=== PATIENT | male | born 1965 | race Caucasian/White ===

== ENCOUNTER 2016-07-18 10:20 | Emergency (ER) | payer BC ==
[2016-07-18] MEDS ORDERED: SODIUM CHLORIDE 0.9% 1,000 ML IV STA ×3 (10:57→12:44)
[2016-07-18] MEDS ORDERED: SODIUM CHLORIDE 0.9% 500 ML IV STA (10:57)
[2016-07-18] MEDS ORDERED: IPRATROPIUM-ALBUTEROL 3 ML NEB INHALATION STA (10:57)
[2016-07-18] MEDS ORDERED: methylPREDNISolone SOD SUCCI 125 MG/2 ML VIAL IV STA (10:57)
[2016-07-18 11:47] LABS: Basophils # (A) 0.1 k/uL (0-0.2); Basophils % (A) 1 %; CH 32.1; CHCM 33.1; Eosinophils # (A) 0.2 k/uL (0-0.7); Eosinophils % (A) 3 %; HCT 47.3 % (39.0-53.0); HDW 2.46; HGB 15.5 gm/dL (13.0-17.5); Luc # (Auto) 0.09; Luc % (Auto) 2; Lymphocytes # (A) 0.9 k/uL (1.0-4.8); Lymphocytes % (A) 16 %; MCH 31.9 pg (25.0-35.0); MCHC 32.7 g/dL (31.0-37.0); MCV 97.6 fL (80.0-100.0); Mean Platelet Volume 7.4; Monocytes # (A) 0.3 k/uL (0-1.0); Monocytes % (A) 5 %; Neutrophils # (A) 4.3 k/uL (1.3-7.7); Neutrophils % (A) 74 %; RBC 4.85 m/uL (4.30-5.90); RDW 14.3 % (11.5-15.5); WBC 5.8 k/uL (3.8-10.6); WBC (Perox) 5.42
[2016-07-18 11:55] LABS: ALT 927 U/L (21-72); Alkaline Phosphatase 624 U/L (38-126); Anion Gap 12 mmol/L; Blood Urea Nitrogen 27 mg/dL (9-20); Calcium 9.8 mg/dL (8.4-10.2); Carbon Dioxide 29 mmol/L (22-30); Chloride 98 mmol/L (98-107); Glucose 286 mg/dL (74-99); Magnesium 1.9 mg/dL (1.6-2.3); Non-African American GFR(MDRD) >60 (>60 ml/min/1.73 sqM); Potassium 4.5 mmol/L (3.5-5.1); Sodium 139 mmol/L (137-145); Total Bilirubin 0.9 mg/dL (0.2-1.3); Total Protein 8.1 g/dL (6.3-8.2)
[2016-07-18] MEDS ORDERED: KETOROLAC 30 MG/ML 1 ML VIAL IVP STA (12:00)
[2016-07-18] MEDS ORDERED: ACETAMINOPHEN IV (For NPO) 1,000 MG in EMPTY BAG 1 BAG IVPB STA (12:00)
--- NOTE | 2016-07-18 12:00 | ED ---
General Adult HPI - General Chief complaint: Shortness of Breath Stated complaint: Sob Time Seen by Provider: 07/18/16 10:29 Source: patient, RN notes reviewed, old records reviewed Mode of arrival: ambulatory Limitations: no limitations - History of Present Illness Initial comments: This is a 50-year-old male the ER for evaluation of cough congestion shortness of breath and some fatigue. Patient's multiple medical comorbidities including diabetes her blood pressure cholesterol. Patient denies chest pain. Patient states been treated for outpatient pneumonia with no significant improvement in his activity level or breathing ability. Patient has continued to smoke. At this time denies fevers, short of breath cough congestion with sore throat. No known sick contacts no recent travel history no recent hospitalizations - Related Data Home Medications Medication Instructions Recorded Confirmed Omeprazole [PriLOSEC] 20 mg PO BID 01/17/14 07/18/16 Insulin Aspart [NovoLOG] See Protocol SQ CONTINUOUS 02/09/14 07/18/16 ALPRAZolam [Xanax] 0.5 mg PO DAILY PRN 04/23/15 07/18/16 Methocarbamol [Robaxin] 500 mg PO TID PRN 04/23/15 07/18/16 Aspirin 81 mg PO DAILY 04/10/16 07/18/16 Amoxic-Pot Clav 875-125Mg 1 tab PO Q12HR 07/18/16 07/18/16 [Augmentin 875-125] Atorvastatin [Lipitor] 40 mg PO DAILY 07/18/16 07/18/16 Hydrocodone/Acetaminophen [[place] 1 tab PO TID PRN 07/18/16 07/18/16 10-325] Lidocaine Viscous [Xylocaine 15 ml MUCOUS MEM Q3H PRN 07/18/16 07/18/16 Viscous 2%] PARoxetine HCL [Paxil] 30 mg PO DAILY 07/18/16 07/18/16 Pregabalin [Lyrica] 75 mg PO BID 07/18/16 07/18/16 Previous Rx's Medication Instructions Recorded hydrALAZINE HCL [Apresoline] 50 mg PO TID #90 tab 04/24/15 Allergies Allergy/AdvReac Type Severity Reaction Status Date / Time No Known Allergies Allergy Verified 07/18/16 10:36 Review of Systems ROS Statement: Those systems with pertinent positive or pertinent negative responses have been documented in the HPI. ROS Other: All systems not noted in ROS Statement are negative. Past Medical History Past Medical History: Diabetes Mellitus, GERD/Reflux, Hypertension Additional Past Medical History / Comment(s): NEUROPATHY LOWER EXTREMITIES, HX OF FEET FX'S. "CRACKED L-5". History of Any Multi-Drug Resistant Organisms: None Reported Past Surgical History: No Surgical Hx Reported Additional Past Surgical History / Comment(s): COLONOSCOPY, carotids surgery. Past Anesthesia/Blood Transfusion Reactions: No Reported Reaction Additional Past Anesthesia/Blood Transfusion Reaction / Comment(s): STATES BLOODPRESSURE "JAMES HIGH" AFTER COLONOSCOPY. Past Psychological History: No Psychological Hx Reported Smoking Status: Current every day smoker Past Alcohol Use History: Occasional Past Drug Use History: None Reported General Exam Limitations: no limitations General appearance: alert, in no apparent distress Head exam: Present: atraumatic, normocephalic, normal inspection Eye exam: Present: normal appearance, PERRL, EOMI. Absent: scleral icterus, conjunctival injection, periorbital swelling ENT exam: Present: normal exam, mucous membranes moist Neck exam: Present: normal inspection. Absent: tenderness, meningismus, lymphadenopathy Respiratory exam: Present: normal lung sounds bilaterally. Absent: respiratory distress, wheezes, rales, rhonchi, stridor Cardiovascular Exam: Present: regular rate, normal rhythm, normal heart sounds. Absent: systolic murmur, diastolic murmur, rubs, gallop, clicks GI/Abdominal exam: Present: soft, normal bowel sounds. Absent: distended, tenderness, guarding, rebound, rigid Extremities exam: Present: normal inspection, full ROM, normal capillary refill. Absent: tenderness, pedal edema, joint swelling, calf tenderness Back exam: Present: normal inspection Neurological exam: Present: alert, oriented X3, CN II-XII intact Psychiatric exam: Present: normal affect, normal mood Skin exam: Present: warm, dry, intact, normal color. Absent: rash Course Vital Signs 07/18/16 07/18/16 07/18/16 10:22 11:12 11:30 Temperature 97.0 F L Pulse Rate 102 H 102 H 102 H Respiratory 20 Rate Blood Pressure 134/73 O2 Sat by Pulse 97 Oximetry - Reevaluation(s) Reevaluation #1: 07/18/16 15:04 Patient does feel improved with symptomatic therapy breathing treatments EKG Findings - EKG Comments: EKG Findings:: EKG shows normal sinus rhythm rate 98, DE 150, QRS 94, QTc 469 Medical Decision Making - Medical Decision Making 50-year-old the ER for evaluation regarding weakness, fatigue. Patient does have elevated liver enzymes, will follow up with GI. Patient resuscitated and has continued bronchitis, urged to quit smoking. - Lab Data Result diagrams: 07/18/16 11:30 07/18/16 11:30 Lab Results 07/18/16 07/18/16 07/18/16 Range/Units 11:30 11:30 11:30 WBC 5.8 (3.8-10.6) k/uL RBC 4.85 (4.30-5.90) m/uL Hgb 15.5 (13.0-17.5) gm/dL Hct 47.3 (39.0-53.0) % MCV 97.6 (80.0-100.0) fL MCH 31.9 (25.0-35.0) pg MCHC 32.7 (31.0-37.0) g/dL RDW 14.3 (11.5-15.5) % Plt Count 301 (150-450) k/uL Neutrophils % 74 % Lymphocytes % 16 % Monocytes % 5 % Eosinophils % 3 % Basophils % 1 % Neutrophils # 4.3 (1.3-7.7) k/uL Lymphocytes # 0.9 L (1.0-4.8) k/uL Monocytes # 0.3 (0-1.0) k/uL Eosinophils # 0.2 (0-0.7) k/uL Basophils # 0.1 (0-0.2) k/uL PT (9.0-12.0) sec INR (<1.1) APTT (22.0-30.0) sec D-Dimer (<0.60) mg/L FEU Sodium 139 (137-145) mmol/L Potassium 4.5 (3.5-5.1) mmol/L Chloride 98 (98-107) mmol/L Carbon Dioxide 29 (22-30) mmol/L Anion Gap 12 mmol/L BUN 27 H (9-20) mg/dL Creatinine 1.00 (0.66-1.25) mg/dL Est GFR (MDRD) Af Amer >60 (>60 ml/min/1.73 sqM) Est GFR (MDRD) Non-Af >60 (>60 ml/min/1.73 sqM) Glucose 286 H (74-99) mg/dL Calcium 9.8 (8.4-10.2) mg/dL Magnesium 1.9 (1.6-2.3) mg/dL Total Bilirubin 0.9 (0.2-1.3) mg/dL AST 1001 H (17-59) U/L ALT 927 H (21-72) U/L Alkaline Phosphatase 624 H (38-126) U/L Total Creatine Kinase 63 (55-170) U/L CK-MB (CK-2) 0.9 (0.0-2.4) ng/mL CK-MB (CK-2) Rel Index 1.4 Troponin I <0.012 (0.000-0.034) ng/mL NT-Pro-B Natriuret Pep pg/mL Total Protein 8.1 (6.3-8.2) g/dL Albumin 4.4 (3.5-5.0) g/dL Lipase (23-300) U/L Acetaminophen ug/mL 07/18/16 07/18/16 07/18/16 Range/Units 11:30 11:30 11:30 WBC (3.8-10.6) k/uL RBC (4.30-5.90) m/uL Hgb (13.0-17.5) gm/dL Hct (39.0-53.0) % MCV (80.0-100.0) fL MCH (25.0-35.0) pg MCHC (31.0-37.0) g/dL RDW (11.5-15.5) % Plt Count (150-450) k/uL Neutrophils % % Lymphocytes % % Monocytes % % Eosinophils % % Basophils % % Neutrophils # (1.3-7.7) k/uL Lymphocytes # (1.0-4.8) k/uL Monocytes # (0-1.0) k/uL Eosinophils # (0-0.7) k/uL Basophils # (0-0.2) k/uL PT 10.1 (9.0-12.0) sec INR 1.0 (<1.1) APTT 22.3 (22.0-30.0) sec D-Dimer 0.80 H (<0.60) mg/L FEU Sodium (137-145) mmol/L Potassium (3.5-5.1) mmol/L Chloride (98-107) mmol/L Carbon Dioxide (22-30) mmol/L Anion Gap mmol/L BUN (9-20) mg/dL Creatinine (0.66-1.25) mg/dL Est GFR (MDRD) Af Amer (>60 ml/min/1.73 sqM) Est GFR (MDRD) Non-Af (>60 ml/min/1.73 sqM) Glucose (74-99) mg/dL Calcium (8.4-10.2) mg/dL Magnesium (1.6-2.3) mg/dL Total Bilirubin (0.2-1.3) mg/dL AST (17-59) U/L ALT (21-72) U/L Alkaline Phosphatase (38-126) U/L Total Creatine Kinase (55-170) U/L CK-MB (CK-2) (0.0-2.4) ng/mL CK-MB (CK-2) Rel Index Troponin I (0.000-0.034) ng/mL NT-Pro-B Natriuret Pep 159 pg/mL Total Protein (6.3-8.2) g/dL Albumin (3.5-5.0) g/dL Lipase 72 (23-300) U/L Acetaminophen <10.0 ug/mL - Radiology Data Radiology results: pending, report reviewed (Chest x-ray negative for acute disease, CTA negative for PE suspicious for bronchitis, ultrasound gallbladder negative for acute disease), image reviewed Disposition Clinical Impression: Weakness generalized, Acute exacerbation of chronic obstructive airways disease , Hepatitis Disposition: HOME SELF-CARE Condition: Good Instructions: Viral Syndrome (ED) Referrals: Kael Rodriguez MD [STAFF PHYSICIAN] - 1-2 days
[2016-07-18 12:02] LABS: AST 1001 U/L (17-59)
[2016-07-18 12:09] LABS: Creatine Kinase 63 U/L (55-170)
[2016-07-18 12:12] LABS: Partial Thromboplastin Time 22.3 sec (22.0-30.0); Prothrombin Time 10.1 sec (9.0-12.0)
--- NOTE | 2016-07-18 12:21 | XR ---
EXAMINATION TYPE: XR chest 2V DATE OF EXAM: 07/18/2016 12:13 PM COMPARISON: 04/10/2016 HISTORY: 50-year-old male difficulty breathing TECHNIQUE: PA and lateral views FINDINGS: The cardiomediastinal silhouette, aorta, and pulmonary vasculature are within normal limits. Mild donnell tral interstitial prominence is present. No consolidation or pleural effusion. IMPRESSION: Findings which may reflect bronchitis or chronic asthma. No focal infiltrate.
[2016-07-18 12:22] LABS: Creatine Kinase MB 0.9 ng/mL (0.0-2.4); Troponin I <0.012 ng/mL (0.000-0.034)
[2016-07-18] MEDS ORDERED: RX INFO: IV CONTRAST WAS GIVEN 1 EACH MISC MISCELLANE PRN (12:44)
[2016-07-18 12:58] LABS: Acetaminophen <10.0 ug/mL
--- NOTE | 2016-07-18 14:11 | CT ---
EXAMINATION TYPE: CT angio chest DATE OF EXAM: 07/18/2016 1:51 PM COMPARISON: 11/14/2014 HISTORY: 50-year-old male with cough and shortness of breath TECHNIQUE: Contiguous axial scanning of the chest performed with IV Contrast, patient injected with 1 00 mL of Omnipaque 350. Coronal/sagittal MIP reconstructions performed. CT DLP: 614 mGycm Automated exposure control for dose reduction was used. FINDINGS: Heart is normal size without pericardial effusion. Coronary vessel calcifications are present in herminio rkable for coronary artery disease. Ascending aorta measures at the upper limits of normal in caliber at 3.5 cm. There is conventional ar terial vessel branching anatomy. Scattered nonenlarged mediastinal lymph nodes are noted. Trace bilateral gynecomastia. Satisfactory opacification of the pulmonary artery system though with respiratory motion causing some limitations, such as in the left mid to lower lung. Within this limitation, no definite pulmonary em bolus is seen. Evaluation of the lungs shows very mild diffuse bronchial wall thickening and some strandy atelectasi s at the left base without consolidation or pleural effusion. Upper abdomen shows a small hiatal hernia and similar mild thickening of the left adrenal gland. Bones: No osseous destructive process. IMPRESSION: 1. SOME RESPIRATORY MOTION CAUSING LIMITATIONS. NO DEFINITE PULMONARY EMBOLUS. 2. MILD DIFFUSE BRONCHIAL WALL THICKENING COULD REFLECT BRONCHITIS OR CHRONIC ASTHMA. OTHERWISE, NO A CUTE PULMONARY PROCESS.
[2016-07-18] MEDS ORDERED: hydrALAZINE HCL 50 MG TAB PO STA (14:36)
--- NOTE | 2016-07-18 14:38 | US ---
EXAMINATION TYPE: US gallbladder DATE OF EXAM: 07/18/2016 2:21 PM COMPARISON: on PACS CLINICAL HISTORY: Pain. NPO, no surgeries EXAM MEASUREMENTS: Liver Length: 16.4 cm Gallbladder Wall: 0.2 cm CHD: 0.3 cm Right Kidney: 10.4 x 5.4 x 6.9 cm FINDINGS: Pancreas: head and tail not seen due to overlying bowel gas Liver: wnl Gallbladder: wnl Evidence for sonographic Reyes's sign: neg CBD: wnl Right Kidney: wnl IMPRESSION: 1. No acute process.
[2016-07-18 14:57] LABS: Hepatitis B Surface Ag Index 0.08
[2016-07-18 15:03] LABS: Hepatitis B Core IgM Index 0.07
[2016-07-18 15:15] LABS: Hepatitis C Virus IgG Index 0.03
[2016-07-18 15:16] LABS: Hepatitis C Virus IgG Ab Negative (Negative)
--- NOTE | 2016-07-18 15:55 | MR ---
EXAMINATION TYPE: MR zakiya garcía con DATE OF EXAM: 07/18/2016 3:40 PM COMPARISON: 03/03/2015 HISTORY: PAIN Multiplanar MultiSpin echo imaging of the cervical spine was performed. Comparison: none C2-C3: No evidence for degenerative disc disease. No disc bulge/herniation or protrusion. No Canal stenosis. Foramina are patent bilaterally. C3-C4: No evidence for degenerative disc disease. No disc bulge/herniation or protrusion. No Canal stenosis. Foramina are patent bilaterally. C4-C5: No evidence for degenerative disc disease. No disc bulge/herniation or protrusion. No Canal stenosis. Foramina are patent bilaterally. C5-C6: Mild disc desiccation is noted. Mild posterior disc bulge with minimal effacement ventral thec al sac. No evidence of herniation protrusion or stenosis. Degenerative change of the right-sided unco vertebral joint resulting in right foraminal encroachment. C6-C7: No evidence for degenerative disc disease. No disc bulge/herniation or protrusion. No Canal stenosis. Foramina are patent bilaterally. C7-T1: No evidence for degenerative disc disease. No disc bulge/herniation or protrusion. No Canal stenosis. Foramina are patent bilaterally. Cervical segments are intact. There is normal alignment. Cervical spinal cord is of normal signal. Craniovertebral junction relationships are within normal limits. IMPRESSION: 1. Disc desiccation and disc bulging at C5-6 unchanged from prior study. Mild right foraminal encroac hment suggested. EXAMINATION TYPE: MR zakiya garcía con DATE OF EXAM: 07/18/2016 3:40 PM COMPARISON: NONE HISTORY: PAIN Multiplanar, MultiSpin echo imaging of the lumbar spine was performed. L1-L2: Normal disc appearance without desiccation. No herniation, protrusion or disc bulging. No ca nal stenosis is present. Foramina are patent bilaterally. L2-L3: Normal disc appearance without desiccation. No herniation, protrusion or disc bulging. No ca nal stenosis is present. Foramina are patent bilaterally. L3-L4: Normal disc appearance without desiccation. No herniation, protrusion or disc bulging. No ca nal stenosis is present. Foramina are patent bilaterally. L4-L5: Mild decreased signal and loss of height compatible with disc desiccation. Mild posterior disc bulge without significant effacement of the ventral thecal sac. No herniation or protrusion identifi ed. No evidence for central stenosis. Foramina are patent bilaterally. L5-S1: Mild disc desiccation noted. Right paracentral disc bulge with small annular tear. No butch he rniation. Mild right foraminal encroachment. No evidence for central stenosis. Lumbar segments are intact. No paraspinal masses are identified. Conus medullaris has a normal appe arance. IMPRESSION: 1. Degenerative disc disease as discussed. 2. Right paracentral disc bulge with small annular tear resulting in mild right foraminal encroachmen t.
[2016-07-18 15:58] VITALS: BP 171/90; PULSE 100; RESP 16; TEMP 97.2
== END 2016-07-18 15:56 | disposition home or self-care (01) ==
LOC: EC 10:20
DX: J44.1 Chronic obstructive pulmonary disease with (acute) exacerbation (principal); R53.1 Weakness; K75.9 Inflammatory liver disease, unspecified; I10 Essential (primary) hypertension; E11.9 Type 2 diabetes mellitus without complications; K21.9 Gastro-esophageal reflux disease without esophagitis; F17.200 Nicotine dependence, unspecified, uncomplicated; Z79.82 Long term (current) use of aspirin; Z79.4 Long term (current) use of insulin; Z79.899 Other long term (current) drug therapy
CPT/HCPCS: 36415; 94640; 93005; 85379; 83880; 80053; 80074; 82550; 82553; 83690; 83735; 84484; 85025; 85610; 85730; 87040; 83520; 71020; 76705; 71275; 72141; 72148; 99285; 96374; 96375 ×2; 96361 ×4; J2930; Q9967; J1885; J0131

== ENCOUNTER 2016-09-10 10:03 | Emergency (ER) | payer BC ==
[2016-09-10 10:10] VITALS: TEMP 98
[2016-09-10] MEDS ORDERED: SODIUM CHLORIDE 0.9% 1,000 ML IV STA (10:39)
[2016-09-10 10:48] LABS: Basophils # (A) 0.1 k/uL (0-0.2); Basophils % (A) 1 %; CH 32.3; CHCM 34.4; Eosinophils # (A) 0.1 k/uL (0-0.7); Eosinophils % (A) 1 %; HDW 2.18; HGB 15.2 gm/dL (13.0-17.5); Luc # (Auto) 0.17; Luc % (Auto) 2; Lymphocytes # (A) 2.5 k/uL (1.0-4.8); Lymphocytes % (A) 24 %; MCH 31.7 pg (25.0-35.0); MCHC 33.6 g/dL (31.0-37.0); MCV 94.2 fL (80.0-100.0); Mean Platelet Volume 6.7; Monocytes # (A) 0.9 k/uL (0-1.0); Monocytes % (A) 9 %; Neutrophils # (A) 6.6 k/uL (1.3-7.7); Neutrophils % (A) 64 %; RBC 4.78 m/uL (4.30-5.90); RDW 13.3 % (11.5-15.5); WBC 10.2 k/uL (3.8-10.6); WBC (Perox) 9.66
[2016-09-10 11:00] LABS: Partial Thromboplastin Time 23.2 sec (22.0-30.0); Prothrombin Time 10.3 sec (9.0-12.0)
[2016-09-10 11:02] LABS: ALT 38 U/L (21-72); AST 31 U/L (17-59); Alkaline Phosphatase 118 U/L (38-126); Anion Gap 9 mmol/L; Blood Urea Nitrogen 33 mg/dL (9-20); Calcium 10.3 mg/dL (8.4-10.2); Carbon Dioxide 26 mmol/L (22-30); Chloride 99 mmol/L (98-107); Glucose 121 mg/dL (74-99); Magnesium 2.2 mg/dL (1.6-2.3); Non-African American GFR(MDRD) >60 (>60 ml/min/1.73 sqM); Potassium 4.6 mmol/L (3.5-5.1); Sodium 134 mmol/L (137-145); Total Bilirubin 0.7 mg/dL (0.2-1.3); Total Protein 7.9 g/dL (6.3-8.2)
[2016-09-10 11:09] LABS: Creatine Kinase 157 U/L (55-170)
[2016-09-10 11:21] LABS: Creatine Kinase MB 1.9 ng/mL (0.0-2.4); Troponin I <0.012 ng/mL (0.000-0.034)
[2016-09-10 11:33] LABS: Acetaminophen <10.0 ug/mL; Salicylate <1.0 mg/dL
--- NOTE | 2016-09-10 11:45 | CT ---
EXAMINATION TYPE: CT brain wo con DATE OF EXAM: 09/10/2016 11:25 AM COMPARISON: 11/14/2014 INDICATION: Syncopal episode DLP: 985.4 mGycm, Automated exposure control for dose reduction was used. CONTRAST: None CT of the brain is performed utilizing 3 mm thick sections through the posterior fossa and 3 mm thick sections through the remaining calvarium. Study is performed within 24 hours of arrival to the hosp [facility]. No abnormal hyperdensity is present to suggest an acute intracranial hemorrhage. No mass lesion is evident. No acute infarcts are evident. There may be some old encephalomalacia of the anterior right temporal lobe which is stable. Ventricles and sulci are appropriate for the patient age. Paranasal sinuses and mastoid air cells within the [id number] are clear. IMPRESSIONS: 1. No acute intracranial process.
--- NOTE | 2016-09-10 12:59 | ED ---
General Adult HPI - General Chief complaint: Fall Stated complaint: Seizure/Fall Time Seen by Provider: 09/10/16 10:28 Source: patient, family, RN notes reviewed, old records reviewed Mode of arrival: wheelchair Limitations: no limitations - History of Present Illness Initial comments: This is a 50-year-old male ER for reevaluation single over seizure-like activity. She had an unwitnessed event where he did lose consciousness for about 15 seconds. Patient has medical history of vascular disease, no history of heart disease. Patient does have type 1 diabetes but states his sugar was from 600 we will call this point. He doesn't states he does drink a lot of water but was doing some drinking and some drugs over the weekend, cocaine and alcohol. Patient denies headache no chest pain or shortness breath or abdominal pain or travel history. Patient at this time is asymptomatic - Related Data Home Medications Medication Instructions Recorded Confirmed Omeprazole [PriLOSEC] 20 mg PO BID 01/17/14 09/10/16 Insulin Aspart [NovoLOG] See Protocol SQ CONTINUOUS 02/09/14 09/10/16 ALPRAZolam [Xanax] 0.5 mg PO DAILY PRN 04/23/15 09/10/16 Methocarbamol [Robaxin] 500 mg PO TID PRN 04/23/15 09/10/16 Aspirin 81 mg PO DAILY 04/10/16 09/10/16 Atorvastatin [Lipitor] 40 mg PO DAILY 07/18/16 09/10/16 Hydrocodone/Acetaminophen [[place] 1 tab PO TID PRN 07/18/16 09/10/16 10-325] PARoxetine HCL [Paxil] 30 mg PO DAILY 07/18/16 09/10/16 Pregabalin [Lyrica] 75 mg PO BID 07/18/16 09/10/16 Lisinopril 40 mg PO DAILY 09/10/16 09/10/16 predniSONE 20 mg PO DAILY 09/10/16 09/10/16 Allergies Allergy/AdvReac Type Severity Reaction Status Date / Time No Known Allergies Allergy Verified 09/10/16 10:44 Review of Systems ROS Statement: Those systems with pertinent positive or pertinent negative responses have been documented in the HPI. ROS Other: All systems not noted in ROS Statement are negative. Past Medical History Past Medical History: Diabetes Mellitus, GERD/Reflux, Hypertension, Seizure Disorder Additional Past Medical History / Comment(s): NEUROPATHY LOWER EXTREMITIES, HX OF FEET FX'S. "CRACKED L-5". History of Any Multi-Drug Resistant Organisms: None Reported Past Surgical History: No Surgical Hx Reported Additional Past Surgical History / Comment(s): COLONOSCOPY, carotids surgery. Past Anesthesia/Blood Transfusion Reactions: No Reported Reaction Additional Past Anesthesia/Blood Transfusion Reaction / Comment(s): STATES BLOODPRESSURE "JAMES HIGH" AFTER COLONOSCOPY. Past Psychological History: No Psychological Hx Reported Smoking Status: Current every day smoker Past Alcohol Use History: Occasional Past Drug Use History: None Reported General Exam Limitations: no limitations General appearance: alert, in no apparent distress Head exam: Present: atraumatic, normocephalic, normal inspection Eye exam: Present: normal appearance, PERRL, EOMI. Absent: scleral icterus, conjunctival injection, periorbital swelling ENT exam: Present: normal exam, mucous membranes moist Neck exam: Present: normal inspection. Absent: tenderness, meningismus, lymphadenopathy Respiratory exam: Present: normal lung sounds bilaterally. Absent: respiratory distress, wheezes, rales, rhonchi, stridor Cardiovascular Exam: Present: regular rate, normal rhythm, normal heart sounds. Absent: systolic murmur, diastolic murmur, rubs, gallop, clicks GI/Abdominal exam: Present: soft, normal bowel sounds. Absent: distended, tenderness, guarding, rebound, rigid Extremities exam: Present: normal inspection, full ROM, normal capillary refill. Absent: tenderness, pedal edema, joint swelling, calf tenderness Back exam: Present: normal inspection Neurological exam: Present: alert, oriented X3, CN II-XII intact Psychiatric exam: Present: normal affect, normal mood Skin exam: Present: warm, dry, intact, normal color. Absent: rash Course Vital Signs 09/10/16 10:07 Temperature 98.0 F Pulse Rate 84 Respiratory 20 Rate Blood Pressure 122/66 O2 Sat by Pulse 98 Oximetry - Reevaluation(s) Reevaluation #1: 09/10/16 12:59 Patient without syncopal event or complaint here in the emergency room Medical Decision Making - Medical Decision Making 50 medical ER for evaluation of syncopal versus seizure like activity. Less than 15 seconds did not lose pulse do not change color, recent lab work and CT are negative. Patient doesn't doing some cocaine and drinking over the weekend. At this times eighth and tobacco chest pain or shortness of breath. Patient will follow-up with neurology, cardiology on an outpatient basis, at this time does not want stay in the hospital - Lab Data Result diagrams: 09/10/16 10:20 09/10/16 10:20 Lab Results 09/10/16 09/10/16 09/10/16 Range/Units 10:20 10:20 10:20 WBC 10.2 (3.8-10.6) k/uL RBC 4.78 (4.30-5.90) m/uL Hgb 15.2 (13.0-17.5) gm/dL Hct 45.0 (39.0-53.0) % MCV 94.2 (80.0-100.0) fL MCH 31.7 (25.0-35.0) pg MCHC 33.6 (31.0-37.0) g/dL RDW 13.3 (11.5-15.5) % Plt Count 339 (150-450) k/uL Neutrophils % 64 % Lymphocytes % 24 % Monocytes % 9 % Eosinophils % 1 % Basophils % 1 % Neutrophils # 6.6 (1.3-7.7) k/uL Lymphocytes # 2.5 (1.0-4.8) k/uL Monocytes # 0.9 (0-1.0) k/uL Eosinophils # 0.1 (0-0.7) k/uL Basophils # 0.1 (0-0.2) k/uL PT 10.3 (9.0-12.0) sec INR 1.0 (<1.1) APTT 23.2 (22.0-30.0) sec D-Dimer 0.37 (<0.60) mg/L FEU Sodium (137-145) mmol/L Potassium (3.5-5.1) mmol/L Chloride (98-107) mmol/L Carbon Dioxide (22-30) mmol/L Anion Gap mmol/L BUN (9-20) mg/dL Creatinine (0.66-1.25) mg/dL Est GFR (MDRD) Af Amer (>60 ml/min/1.73 sqM) Est GFR (MDRD) Non-Af (>60 ml/min/1.73 sqM) Glucose (74-99) mg/dL Calcium (8.4-10.2) mg/dL Phosphorus (2.5-4.5) mg/dL Magnesium (1.6-2.3) mg/dL Total Bilirubin (0.2-1.3) mg/dL AST (17-59) U/L ALT (21-72) U/L Alkaline Phosphatase (38-126) U/L Total Creatine Kinase 157 (55-170) U/L CK-MB (CK-2) 1.9 (0.0-2.4) ng/mL CK-MB (CK-2) Rel Index 1.2 Troponin I <0.012 (0.000-0.034) ng/mL Total Protein (6.3-8.2) g/dL Albumin (3.5-5.0) g/dL Lipase (23-300) U/L Salicylates mg/dL Acetaminophen ug/mL 09/10/16 09/10/16 Range/Units 10:20 10:20 WBC (3.8-10.6) k/uL RBC (4.30-5.90) m/uL Hgb (13.0-17.5) gm/dL Hct (39.0-53.0) % MCV (80.0-100.0) fL MCH (25.0-35.0) pg MCHC (31.0-37.0) g/dL RDW (11.5-15.5) % Plt Count (150-450) k/uL Neutrophils % % Lymphocytes % % Monocytes % % Eosinophils % % Basophils % % Neutrophils # (1.3-7.7) k/uL Lymphocytes # (1.0-4.8) k/uL Monocytes # (0-1.0) k/uL Eosinophils # (0-0.7) k/uL Basophils # (0-0.2) k/uL PT (9.0-12.0) sec INR (<1.1) APTT (22.0-30.0) sec D-Dimer (<0.60) mg/L FEU Sodium 134 L (137-145) mmol/L Potassium 4.6 (3.5-5.1) mmol/L Chloride 99 (98-107) mmol/L Carbon Dioxide 26 (22-30) mmol/L Anion Gap 9 mmol/L BUN 33 H (9-20) mg/dL Creatinine 1.19 (0.66-1.25) mg/dL Est GFR (MDRD) Af Amer >60 (>60 ml/min/1.73 sqM) Est GFR (MDRD) Non-Af >60 (>60 ml/min/1.73 sqM) Glucose 121 H (74-99) mg/dL Calcium 10.3 H (8.4-10.2) mg/dL Phosphorus 4.0 (2.5-4.5) mg/dL Magnesium 2.2 (1.6-2.3) mg/dL Total Bilirubin 0.7 (0.2-1.3) mg/dL AST 31 (17-59) U/L ALT 38 (21-72) U/L Alkaline Phosphatase 118 (38-126) U/L Total Creatine Kinase (55-170) U/L CK-MB (CK-2) (0.0-2.4) ng/mL CK-MB (CK-2) Rel Index Troponin I (0.000-0.034) ng/mL Total Protein 7.9 (6.3-8.2) g/dL Albumin 4.5 (3.5-5.0) g/dL Lipase 33 (23-300) U/L Salicylates <1.0 mg/dL Acetaminophen <10.0 ug/mL - Radiology Data Radiology results: report reviewed (CT brain negative for acute disease), image reviewed Disposition Clinical Impression: Syncope Narrative: Versus Seizure Disposition: HOME SELF-CARE Condition: Good Instructions: Syncope (ED), New-Onset Seizure in Adults (ED) Referrals: Anthony Quezada MD [Primary Care Provider] - 1-2 days Blas Leon MD [STAFF PHYSICIAN] - 1-2 days Liya Kenney MD [STAFF PHYSICIAN] - 1-2 days
[2016-09-10 13:11] VITALS: BP 145/79; PULSE 89; RESP 18
== END 2016-09-10 13:00 | disposition home or self-care (01) ==
LOC: EC 10:03
DX: G40.909 Epilepsy, unspecified, not intractable, without status epilepticus (principal); E10.9 Type 1 diabetes mellitus without complications; I10 Essential (primary) hypertension; K21.9 Gastro-esophageal reflux disease without esophagitis; F17.200 Nicotine dependence, unspecified, uncomplicated; Z79.4 Long term (current) use of insulin; Z79.899 Other long term (current) drug therapy; Z79.82 Long term (current) use of aspirin; Z79.52 Long term (current) use of systemic steroids; W18.30XA Fall on same level, unspecified, initial encounter
CPT/HCPCS: 36415; 70450; 80053; 82550; 82553; 83520; 83690; 83735; 84100; 84484; 85025; 85379; 85610; 85730; 93005; 96360; 99285

== ENCOUNTER → 2017-06-13 | Outpatient (CLI) | payer BC ==
[2017-06-13 11:19] LABS: HCT 41.7 % (39.0-53.0); MCH 31.8 pg (25.0-35.0); MCHC 33.6 g/dL (31.0-37.0); MCV 94.9 fL (80.0-100.0); Mean Platelet Volume 7.1; Platelet Count 364 k/uL (150-450); RDW 13.4 % (11.5-15.5); WBC 6.1 k/uL (3.8-10.6)
[2017-06-13 11:24] LABS: Anion Gap 13 mmol/L; Blood Urea Nitrogen 25 mg/dL (9-20); Calcium 10.1 mg/dL (8.4-10.2); Carbon Dioxide 27 mmol/L (22-30); Chloride 101 mmol/L (98-107); Glucose 133 mg/dL (74-99); Magnesium 1.8 mg/dL (1.6-2.3); Phosphorus 4.2 mg/dL (2.5-4.5); Potassium 4.9 mmol/L (3.5-5.1); Sodium 141 mmol/L (137-145); Uric Acid 5.6 mg/dL (3.5-8.5)
[2017-06-13 12:34] LABS: Appearance,Urine Clear (Clear); Bilirubin,Urine Negative (Negative); Blood,Urine Negative (Negative); Color,Urine Yellow; Glucose,Urine (UA) 3+ (Negative); Hyaline Casts,Urine 19 /lpf (0-2); Ketones,Urine Negative (Negative); Leukocyte Esterase,Urine Negative (Negative); Mucus,Urine Rare /hpf; Nitrite,Urine Negative (Negative); Protein,Urine 1+ (Negative); RBC,Urine <1 /hpf (0-5); Specific Gravity,Urine 1.015 (1.001-1.035); Squamous Epithelial Cell,Urine <1 /hpf (0-4); Urobilinogen,Urine <2.0 mg/dL (<2.0); WBC,Urine <1 /hpf (0-5)
[2017-06-13 15:36] LABS: Creatinine,Urine Random 215.5 mg/dL
[2017-06-13 16:17] LABS: Iron Saturation 31.88 (15.00-50.00)
[2017-06-13 16:43] LABS: Vitamin D 25 Hydroxy 9.2 ng/mL (30.0-100.0)
[2017-06-13 17:47] LABS: Parathyroid Hormone Intact 103.8 pg/mL (14.0-72.0)
[2017-06-13 20:07] LABS: Hemoglobin A1C 8.1 % (4.0-6.0)
== END | disposition home or self-care (01) ==
LOC: LABWHC1 10:51
PROVIDERS: ATTEND Nurse Practitioner Family
DX: E55.9 Vitamin D deficiency, unspecified (principal); R80.9 Proteinuria, unspecified; D63.1 Anemia in chronic kidney disease; N18.3 Chronic kidney disease, stage 3 (moderate); E11.22 Type 2 diabetes mellitus with diabetic chronic kidney disease
CPT/HCPCS: 36415; 80048; 81001; 82306; 82570; 82728; 83036; 83540; 83550; 83735; 83970; 84100; 84156; 84550; 85027

== ENCOUNTER → 2017-07-06 | Outpatient (CLI) | payer BC ==
[2017-07-06 15:28] LABS: Appearance,Urine Clear (Clear); Bilirubin,Urine Negative (Negative); Blood,Urine Negative (Negative); Color,Urine Yellow; Glucose,Urine (UA) 2+ (Negative); Ketones,Urine Negative (Negative); Leukocyte Esterase,Urine Negative (Negative); Nitrite,Urine Negative (Negative); Protein,Urine Negative (Negative); Specific Gravity,Urine 1.012 (1.001-1.035); Urobilinogen,Urine <2.0 mg/dL (<2.0)
[2017-07-06 15:41] LABS: Calcium 9.5 mg/dL (8.4-10.2); Magnesium 1.7 mg/dL (1.6-2.3); Phosphorus 4.5 mg/dL (2.5-4.5); Potassium 4.6 mmol/L (3.5-5.1); Uric Acid 6.9 mg/dL (3.5-8.5)
[2017-07-06 15:46] LABS: Creatinine,Urine Random 109.1 mg/dL
--- NOTE | 2017-07-06 15:48 | US ---
EXAMINATION TYPE: US kidneys/renal and bladder DATE OF EXAM: 07/06/2017 COMPARISON: NONE CLINICAL HISTORY: N18.3 Chronic Kidney Disease Stage 3. EXAM MEASUREMENTS: Right Kidney: 10.1 x 5.7 x 4.8 cm Left Kidney: 9.9 x 5.3 x 4.8 cm Right Kidney: No hydronephrosis or masses seen Left Kidney: No hydronephrosis or masses seen Bladder: wnl Bilateral Jets seen: Yes There is no evidence for hydronephrosis at this point in time. No nephrolithiasis is seen. No ricci s are identified. The urinary bladder is anechoic. Bilateral ureteral jets are seen. Cortical medullary differentiation is maintained within the kidneys. There is no ascites evident. IMPRESSION: Normal renal ultrasound.
[2017-07-06 15:50] LABS: MCH 31.2 pg (25.0-35.0); MCHC 32.4 g/dL (31.0-37.0); MCV 96.4 fL (80.0-100.0); Mean Platelet Volume 6.9; Platelet Count 338 k/uL (150-450); RBC 3.84 m/uL (4.30-5.90); RDW 12.8 % (11.5-15.5); WBC 5.4 k/uL (3.8-10.6)
[2017-07-06 19:24] LABS: Vitamin D 25 Hydroxy 12.2 ng/mL (30.0-100.0)
[2017-07-06 19:54] LABS: Parathyroid Hormone Intact 73.3 pg/mL (14.0-72.0)
[2017-07-06 20:13] LABS: Iron Saturation 30.79 (15.00-50.00)
[2017-07-06 20:25] LABS: Anti-DNA, DS unit <1.0 IU/mL; DNA Double-Stranded NEGATIVE (NEGATIVE)
[2017-07-06 22:43] LABS: Hemoglobin A1C 8.2 % (4.0-6.0)
[2017-07-09 14:24] LABS: C-ANCA <1:20 Titer (<1:20); P-ANCA <1:20 Titer (<1:20)
== END | disposition home or self-care (01) ==
LOC: RADUSWWP 14:17
PROVIDERS: ATTEND Internal Medicine Nephrology
DX: E10.22 Type 1 diabetes mellitus with diabetic chronic kidney disease (principal); D63.1 Anemia in chronic kidney disease; N18.3 Chronic kidney disease, stage 3 (moderate); N39.0 Urinary tract infection, site not specified; N25.81 Secondary hyperparathyroidism of renal origin; E55.9 Vitamin D deficiency, unspecified; R80.9 Proteinuria, unspecified; M10.9 Gout, unspecified
CPT/HCPCS: 36415; 76770; 80048; 81003; 82306; 82570; 82728; 83036; 83516; 83540; 83550; 83735; 83883; 83970; 84100; 84156; 84166; 84550; 85027; 86038; 86160; 86162; 86225; 86255; 86334

== ENCOUNTER 2017-08-04 12:33 | Inpatient (IN) | payer BC ==
[2017-08-04] MEDS ORDERED: SODIUM CHLORIDE 0.9% 1,000 ML IV ONE ×2 (12:49→18:30)
[2017-08-04] MEDS ORDERED: NALOXONE 0.4 MG/ML 1 ML VIAL IV STA (12:49)
[2017-08-04] MEDS ORDERED: NALOXONE 0.4 MG/ML 10 ML VIAL IVP STA (12:50)
[2017-08-04] MEDS ORDERED: MIDAZOLAM 2 MG/2 ML VIAL IV ONE (12:50)
[2017-08-04] MEDS ORDERED: SUCCINYLCHOLINE CHLORIDE VIAL 200 MG/10 ML VIAL IV STA ×2 (12:50)
[2017-08-04] MEDS: PROPOFOL 1,000 MG in EMPTY BAG 1 BAG IV SCH ×2 (12:50→17:05)
[2017-08-04 12:51] LABS: Glucose,Whole Blood 99 mg/dL (75-99)
[2017-08-04] MEDS ORDERED: LORazepam 2 MG/ML INJ IV PRN (12:51)
--- NOTE | 2017-08-04 12:56 | ED ---
General Adult HPI - General Chief complaint: Altered Mental Status Stated complaint: NON-RESPONSIVE Time Seen by Provider: 08/04/17 12:49 Source: patient, EMS, RN notes reviewed Mode of arrival: EMS Limitations: altered mental status - History of Present Illness Initial comments: Patient is unresponsive 51-year-old male presenting to the emergency department regarding change in mental status. Patient reportedly did have some alcohol and marijuana last night. No reported other drugs or heroin. Patient was unable to wake up this morning. EMS arrived and found patient unresponsive. EMS did provide nasal trumpet. Patient is unresponsive and provides no history. - Related Data Home Medications Medication Instructions Recorded Confirmed Omeprazole [PriLOSEC] 20 mg PO DAILY 01/17/14 08/04/17 Insulin Aspart [NovoLOG 90 units SQ DAILY 02/09/14 08/04/17 (formulary)] ALPRAZolam [Xanax] 0.5 mg PO DAILY PRN 04/23/15 08/04/17 PARoxetine HCL [Paxil] 30 mg PO DAILY 07/18/16 08/04/17 Ergocalciferol [Vitamin D2] 50,000 unit PO Q7D 08/04/17 08/04/17 Lisinopril [Zestril] 20 mg PO DAILY 08/04/17 08/04/17 amLODIPine BESYLATE [Norvasc] 10 mg PO DAILY 08/04/17 08/04/17 levETIRAcetam [Keppra] 500 mg PO BID 08/04/17 08/04/17 Allergies Allergy/AdvReac Type Severity Reaction Status Date / Time No Known Allergies Allergy Verified 08/04/17 13:26 Review of Systems ROS Statement: Those systems with pertinent positive or pertinent negative responses have been documented in the HPI. ROS Other: All systems not noted in ROS Statement are negative. Limitations: ROS unobtainable due to patients medical condition Past Medical History Past Medical History: Diabetes Mellitus, GERD/Reflux, Hypertension, Seizure Disorder Additional Past Medical History / Comment(s): NEUROPATHY LOWER EXTREMITIES, HX OF FEET FX'S. "CRACKED L-5". History of Any Multi-Drug Resistant Organisms: None Reported Past Surgical History: No Surgical Hx Reported Additional Past Surgical History / Comment(s): COLONOSCOPY, carotids surgery. Past Anesthesia/Blood Transfusion Reactions: No Reported Reaction Additional Past Anesthesia/Blood Transfusion Reaction / Comment(s): STATES BLOODPRESSURE "JAMES HIGH" AFTER COLONOSCOPY. Past Psychological History: No Psychological Hx Reported Smoking Status: Current every day smoker Past Alcohol Use History: Occasional Past Drug Use History: None Reported General Exam Limitations: altered mental status General appearance: obtunded Head exam: Present: atraumatic Eye exam: Present: normal appearance, other (Pupils are 5 mm with sluggish.) ENT exam: Present: normal oropharynx Neck exam: Present: normal inspection Respiratory exam: Present: rales Cardiovascular Exam: Present: regular rate, normal rhythm GI/Abdominal exam: Present: soft. Absent: tenderness Extremities exam: Present: normal inspection Expanded Neurological exam: Absent: protecting the airway Eye Response: (1) no response Motor Response: (1) no motor response Verbal Response: (1) no verbal response Psychiatric exam: Present: other (Nonverbal) Skin exam: Present: normal color Course Vital Signs 08/04/17 08/04/17 08/04/17 12:39 12:49 14:00 Temperature 97.4 F L Pulse Rate 87 67 Respiratory 10 L 28 H Rate Blood Pressure 133/62 69/48 O2 Sat by Pulse 95 100 Oximetry 08/04/17 14:37 Temperature Pulse Rate 69 Respiratory 28 H Rate Blood Pressure 96/58 O2 Sat by Pulse 100 Oximetry - Reevaluation(s) Reevaluation #1: 08/04/17 12:54 Patient had no significant gag. Unable to demonstrate ability to protect airway. Difficulty obtaining IV line and left anterior tibial intraosseous line was obtained by myself. Patient did arouse somewhat following this and open his eyes however remain nonverbal. Narcan was given. No significant improvement with Narcan. Patient was intubated to protect airway. Chest x-ray and computed tomography scan ordered. 08/04/17 12:56 Insulin pump was suspended. 08/04/17 13:28 Case was discussed with Dr. Matias, covering for Dr. Quezada, who is present and evaluating the patient. 08/04/17 14:42 Patient was reevaluated and unchanged 08/04/17 14:47 Case was also discussed with Dr. Grewal, who will consult for critical care. EKG Findings - EKG Comments: EKG Findings:: Normal sinus rhythm 74. CA 188. QRS 114. QT 440. QTc 488. Normal axis. Normal QRS. No acute ST change. Procedures - ABG Interpretation Ph: 7.16 PCO2: 40.1 PO2: 187 Interpretation: metabolic acidosis - Intubation Time Out Performed: Yes Sedative: Versed Paralytic: Succinylcholine Laryngoscope: Perez Size: 3 ET Tube Size: 8 Tube Placement Confirmation: visualized tube passing through cords, equal breath sounds bilaterally, no breath sounds over epigastrium, confirmation by capnometry Patient Tolerated Procedure: well, no complications Intubation Complications: none - IO Left Consent Obtained: emergent situation (Left anterior tibial) Time Out Performed: Yes IO Instrument Used to Penetrate the Cortex: battery powered IO drill Patient Tolerated Procedure: well Complications: none Medical Decision Making - Lab Data Result diagrams: 08/04/17 12:55 08/04/17 12:55 Lab Results 08/04/17 08/04/17 08/04/17 Range/Units 12:39 12:55 12:55 WBC 4.8 (3.8-10.6) k/uL RBC 4.02 L (4.30-5.90) m/uL Hgb 12.6 L (13.0-17.5) gm/dL Hct 40.4 (39.0-53.0) % MCV 100.6 H (80.0-100.0) fL MCH 31.4 (25.0-35.0) pg MCHC 31.2 (31.0-37.0) g/dL RDW 12.9 (11.5-15.5) % Plt Count 359 (150-450) k/uL Neutrophils % 58 % Lymphocytes % 34 % Monocytes % 5 % Eosinophils % 2 % Basophils % 0 % Neutrophils # 2.8 (1.3-7.7) k/uL Lymphocytes # 1.7 (1.0-4.8) k/uL Monocytes # 0.2 (0-1.0) k/uL Eosinophils # 0.1 (0-0.7) k/uL Basophils # 0.0 (0-0.2) k/uL Hypochromasia Moderate PT (9.0-12.0) sec INR (<1.2) APTT (22.0-30.0) sec Sample Site ABG pH (7.35-7.45) ABG pCO2 (35-45) mmHg ABG pO2 (83-108) mmHg ABG HCO3 (21-25) mmol/L ABG Total CO2 (19-24) mmol/L ABG O2 Saturation (94-97) % ABG Base Excess mmol/L Mariano Test FiO2 % Sodium (137-145) mmol/L Potassium (3.5-5.1) mmol/L Chloride (98-107) mmol/L Carbon Dioxide (22-30) mmol/L Anion Gap mmol/L BUN (9-20) mg/dL Creatinine (0.66-1.25) mg/dL Est GFR (CKD-EPI)AfAm (>60 ml/min/1.73 sqM) Est GFR (CKD-EPI)NonAf (>60 ml/min/1.73 sqM) Glucose (74-99) mg/dL POC Glucose (mg/dL) 99 (75-99) mg/dL POC Glu Manufacturing Engineering Intern ID Starr Rivera Calcium (8.4-10.2) mg/dL Total Bilirubin (0.2-1.3) mg/dL AST (17-59) U/L ALT (21-72) U/L Alkaline Phosphatase (38-126) U/L Total Creatine Kinase 162 (55-170) U/L CK-MB (CK-2) 3.9 H* (0.0-2.4) ng/mL CK-MB (CK-2) Rel Index 2.4 Troponin I 0.020 (0.000-0.034) ng/mL NT-Pro-B Natriuret Pep pg/mL Total Protein (6.3-8.2) g/dL Albumin (3.5-5.0) g/dL Urine Color Urine Appearance (Clear) Urine pH (5.0-8.0) Ur Specific [place] (1.001-1.035) Urine Protein (Negative) Urine Glucose (UA) (Negative) Urine Ketones (Negative) Urine Blood (Negative) Urine Nitrite (Negative) Urine Bilirubin (Negative) Urine Urobilinogen (<2.0) mg/dL Ur Leukocyte Esterase (Negative) Urine Opiates Screen (NotDetected) Ur Oxycodone Screen (NotDetected) Urine Methadone Screen (NotDetected) Ur Propoxyphene Screen (NotDetected) Ur Barbiturates Screen (NotDetected) U Tricyclic Antidepress (NotDetected) Ur Phencyclidine Scrn (NotDetected) Ur Amphetamines Screen (NotDetected) U Methamphetamines Scrn (NotDetected) U Benzodiazepines Scrn (NotDetected) Urine Cocaine Screen (NotDetected) U Marijuana (THC) Screen (NotDetected) Serum Alcohol mg/dL 08/04/17 08/04/17 08/04/17 Range/Units 12:55 12:55 12:55 WBC (3.8-10.6) k/uL RBC (4.30-5.90) m/uL Hgb (13.0-17.5) gm/dL Hct (39.0-53.0) % MCV (80.0-100.0) fL MCH (25.0-35.0) pg MCHC (31.0-37.0) g/dL RDW (11.5-15.5) % Plt Count (150-450) k/uL Neutrophils % % Lymphocytes % % Monocytes % % Eosinophils % % Basophils % % Neutrophils # (1.3-7.7) k/uL Lymphocytes # (1.0-4.8) k/uL Monocytes # (0-1.0) k/uL Eosinophils # (0-0.7) k/uL Basophils # (0-0.2) k/uL Hypochromasia PT 9.9 (9.0-12.0) sec INR 1.0 (<1.2) APTT 23.3 (22.0-30.0) sec Sample Site ABG pH (7.35-7.45) ABG pCO2 (35-45) mmHg ABG pO2 (83-108) mmHg ABG HCO3 (21-25) mmol/L ABG Total CO2 (19-24) mmol/L ABG O2 Saturation (94-97) % ABG Base Excess mmol/L Mariano Test FiO2 % Sodium 138 (137-145) mmol/L Potassium 6.0 H (3.5-5.1) mmol/L Chloride 101 (98-107) mmol/L Carbon Dioxide 19 L (22-30) mmol/L Anion Gap 18 mmol/L BUN 35 H (9-20) mg/dL Creatinine 2.97 H (0.66-1.25) mg/dL Est GFR (CKD-EPI)AfAm 27 (>60 ml/min/1.73 sqM) Est GFR (CKD-EPI)NonAf 23 (>60 ml/min/1.73 sqM) Glucose 81 (74-99) mg/dL POC Glucose (mg/dL) (75-99) mg/dL POC Glu Manufacturing Engineering Intern ID Calcium 9.3 (8.4-10.2) mg/dL Total Bilirubin 0.3 (0.2-1.3) mg/dL AST 468 H (17-59) U/L ALT 263 H (21-72) U/L Alkaline Phosphatase 121 (38-126) U/L Total Creatine Kinase (55-170) U/L CK-MB (CK-2) (0.0-2.4) ng/mL CK-MB (CK-2) Rel Index Troponin I (0.000-0.034) ng/mL NT-Pro-B Natriuret Pep 700 pg/mL Total Protein 7.0 (6.3-8.2) g/dL Albumin 4.1 (3.5-5.0) g/dL Urine Color Urine Appearance (Clear) Urine pH (5.0-8.0) Ur Specific [place] (1.001-1.035) Urine Protein (Negative) Urine Glucose (UA) (Negative) Urine Ketones (Negative) Urine Blood (Negative) Urine Nitrite (Negative) Urine Bilirubin (Negative) Urine Urobilinogen (<2.0) mg/dL Ur Leukocyte Esterase (Negative) Urine Opiates Screen (NotDetected) Ur Oxycodone Screen (NotDetected) Urine Methadone Screen (NotDetected) Ur Propoxyphene Screen (NotDetected) Ur Barbiturates Screen (NotDetected) U Tricyclic Antidepress (NotDetected) Ur Phencyclidine Scrn (NotDetected) Ur Amphetamines Screen (NotDetected) U Methamphetamines Scrn (NotDetected) U Benzodiazepines Scrn (NotDetected) Urine Cocaine Screen (NotDetected) U Marijuana (THC) Screen (NotDetected) Serum Alcohol <10 mg/dL 08/04/17 08/04/17 Range/Units 13:40 14:25 WBC (3.8-10.6) k/uL RBC (4.30-5.90) m/uL Hgb (13.0-17.5) gm/dL Hct (39.0-53.0) % MCV (80.0-100.0) fL MCH (25.0-35.0) pg MCHC (31.0-37.0) g/dL RDW (11.5-15.5) % Plt Count (150-450) k/uL Neutrophils % % Lymphocytes % % Monocytes % % Eosinophils % % Basophils % % Neutrophils # (1.3-7.7) k/uL Lymphocytes # (1.0-4.8) k/uL Monocytes # (0-1.0) k/uL Eosinophils # (0-0.7) k/uL Basophils # (0-0.2) k/uL Hypochromasia PT (9.0-12.0) sec INR (<1.2) APTT (22.0-30.0) sec Sample Site r brac ABG pH 7.16 L* (7.35-7.45) ABG pCO2 40 (35-45) mmHg ABG pO2 187 H (83-108) mmHg ABG HCO3 14 L (21-25) mmol/L ABG Total CO2 16 L (19-24) mmol/L ABG O2 Saturation 98.0 H (94-97) % ABG Base Excess -14.3 mmol/L Mariano Test Yes FiO2 100 % Sodium (137-145) mmol/L Potassium (3.5-5.1) mmol/L Chloride (98-107) mmol/L Carbon Dioxide (22-30) mmol/L Anion Gap mmol/L BUN (9-20) mg/dL Creatinine (0.66-1.25) mg/dL Est GFR (CKD-EPI)AfAm (>60 ml/min/1.73 sqM) Est GFR (CKD-EPI)NonAf (>60 ml/min/1.73 sqM) Glucose (74-99) mg/dL POC Glucose (mg/dL) (75-99) mg/dL POC Glu Manufacturing Engineering Intern ID Calcium (8.4-10.2) mg/dL Total Bilirubin (0.2-1.3) mg/dL AST (17-59) U/L ALT (21-72) U/L Alkaline Phosphatase (38-126) U/L Total Creatine Kinase (55-170) U/L CK-MB (CK-2) (0.0-2.4) ng/mL CK-MB (CK-2) Rel Index Troponin I (0.000-0.034) ng/mL NT-Pro-B Natriuret Pep pg/mL Total Protein (6.3-8.2) g/dL Albumin (3.5-5.0) g/dL Urine Color Yellow Urine Appearance Clear (Clear) Urine pH 5.0 (5.0-8.0) Ur Specific [place] 1.008 (1.001-1.035) Urine Protein Negative (Negative) Urine Glucose (UA) Negative (Negative) Urine Ketones Negative (Negative) Urine Blood Negative (Negative) Urine Nitrite Negative (Negative) Urine Bilirubin Negative (Negative) Urine Urobilinogen <2.0 (<2.0) mg/dL Ur Leukocyte Esterase Negative (Negative) Urine Opiates Screen Detected H (NotDetected) Ur Oxycodone Screen Not Detected (NotDetected) Urine Methadone Screen Not Detected (NotDetected) Ur Propoxyphene Screen Not Detected (NotDetected) Ur Barbiturates Screen Not Detected (NotDetected) U Tricyclic Antidepress Not Detected (NotDetected) Ur Phencyclidine Scrn Not Detected (NotDetected) Ur Amphetamines Screen Not Detected (NotDetected) U Methamphetamines Scrn Not Detected (NotDetected) U Benzodiazepines Scrn Not Detected (NotDetected) Urine Cocaine Screen Detected H (NotDetected) U Marijuana (THC) Screen Not Detected (NotDetected) Serum Alcohol mg/dL - Radiology Data Radiology results: report reviewed (Computed tomography scan of the brain reveals no acute intercranial abnormality.), image reviewed (Chest x-ray is suspicious for some vascular congestion.) Critical Care Time Critical Care Time: Yes Total Critical Care Time: 38 Disposition Clinical Impression: Acute renal failure (ARF), Altered mental status, Respiratory failure Disposition: ADMITTED IP TO THIS HOSP Referrals: Anthony Quezada MD [Primary Care Provider] - 1-2 days Decision Time: 14:48
[2017-08-04 13:08] LABS: Basophils % (A) 0 %; Eosinophils # (A) 0.1 k/uL (0-0.7); Eosinophils % (A) 2 %; HCT 40.4 % (39.0-53.0); HGB 12.6 gm/dL (13.0-17.5); Hypochromasia Moderate; Lymphocytes # (A) 1.7 k/uL (1.0-4.8); Lymphocytes % (A) 34 %; MCH 31.4 pg (25.0-35.0); MCHC 31.2 g/dL (31.0-37.0); MCV 100.6 fL (80.0-100.0); Mean Platelet Volume 6.8; Monocytes # (A) 0.2 k/uL (0-1.0); Monocytes % (A) 5 %; Neutrophils # (A) 2.8 k/uL (1.3-7.7); Neutrophils % (A) 58 %; Platelet Count 359 k/uL (150-450); RBC 4.02 m/uL (4.30-5.90); RDW 12.9 % (11.5-15.5); WBC 4.8 k/uL (3.8-10.6)
--- NOTE | 2017-08-04 13:17 | XR ---
EXAMINATION TYPE: XR chest 1V portable DATE OF EXAM: 08/04/2017 HISTORY: pain. REFERENCE: Previous study dated 07/18/2016. FINDINGS: The patient has been intubated. ET tube has its tip approximately 2.8 cm above the pamela. This should likely be withdrawn slightly. Heart size upper limits of normal. There is vascular congestion and mild edema. IMPRESSION: 1. LOW-LYING ET TUBE. 2. CHANGES MOST CONSISTENT WITH MILD HEART FAILURE.
[2017-08-04 13:18] LABS: Partial Thromboplastin Time 23.3 sec (22.0-30.0); Prothrombin Time 9.9 sec (9.0-12.0)
[2017-08-04 13:24] LABS: ALT 263 U/L (21-72); AST 468 U/L (17-59); Albumin 4.1 g/dL (3.5-5.0); Alcohol <10 mg/dL; Alkaline Phosphatase 121 U/L (38-126); Anion Gap 18 mmol/L; Blood Urea Nitrogen 35 mg/dL (9-20); Calcium 9.3 mg/dL (8.4-10.2); Carbon Dioxide 19 mmol/L (22-30); Chloride 101 mmol/L (98-107); Glucose 81 mg/dL (74-99); Sodium 138 mmol/L (137-145); Total Bilirubin 0.3 mg/dL (0.2-1.3)
--- NOTE | 2017-08-04 13:30 | CT ---
EXAMINATION TYPE: CT brain wo con DATE OF EXAM: 08/04/2017 COMPARISON: Previous study dated 09/10/2016. HISTORY: Patient unresponsive, unknown down time per RN CT DLP: 1180.9 mGycm Automated exposure control for dose reduction was used. FINDINGS: Central structures are midline. There is no evidence of hydrocephalus. No acute focal lesion, mass ef fect or midline shift is seen. I do not see evidence of intracranial blood. There is chronic mucoperiosteal thickening involving the maxillary sinuses bilaterally. The bony calv arium is intact. IMPRESSION: 1. NO ACUTE INTRACRANIAL ABNORMALITY. 2. CHRONIC MAXILLARY SINUS MUCOSAL DISEASE.
[2017-08-04] MEDS ORDERED: SODIUM CHLORIDE 0.9% 500 ML IV STA ×2 (13:42→13:44)
[2017-08-04] MEDS ORDERED: SODIUM CHLORIDE 0.9% 1,000 ML IV STA (13:42)
[2017-08-04] MEDS ORDERED: CALCIUM GLUCONATE 1,000 MG in SODIUM CHLORIDE 0.9% 100 ML IVPB ONE (13:44)
[2017-08-04 13:46] LABS: Troponin I 0.02 ng/mL (0.000-0.034)
[2017-08-04 13:54] LABS: Appearance,Urine Clear (Clear); Bilirubin,Urine Negative (Negative); Blood,Urine Negative (Negative); Color,Urine Yellow; Glucose,Urine (UA) Negative (Negative); Ketones,Urine Negative (Negative); Leukocyte Esterase,Urine Negative (Negative); Nitrite,Urine Negative (Negative); Protein,Urine Negative (Negative); Specific Gravity,Urine 1.008 (1.001-1.035); Urobilinogen,Urine <2.0 mg/dL (<2.0)
[2017-08-04 13:56] LABS: Creatine Kinase MB 3.9 ng/mL (0.0-2.4)
[2017-08-04 14:05] LABS: Amphetamine Screen,Urine Not Detected (NotDetected); Barbiturate Screen,Urine Not Detected (NotDetected); Benzodiazepines Screen,Urine Not Detected (NotDetected); Cocaine Screen,Urine Detected (NotDetected); Methadone Screen, Urine Not Detected (NotDetected); Opiate Screen,Urine Detected (NotDetected); Oxycodone Screen, Urine Not Detected (NotDetected); Phencyclidine Screen,Urine Not Detected (NotDetected); Tricyclic Antidepressant,Urine Not Detected (NotDetected); Urn Cannabinoid Scrn Not Detected (NotDetected)
--- NOTE | 2017-08-04 14:07 | P.HPIM ---
History of Present Illness H&P Date: 08/04/17 Chief Complaint: AMS This is 51 years old male with past medical history significant for alcohol abuse and polysubstance abuse presents to the emergency department with altered mental status. According to the who is the primary caregiver and who witnessed the patient stated that yesterday they had normal evening where they had 6-1212 be her each one of them and after that day had 2 shots of vodka followed by 1 tablet of morphine 30 mg and patient went to sleep 5:00 in the morning patient was sweating and checked on his glucose as patient is diabetic type I and found him to be 70 she woke him up and he was responsive give him some juice and food after that he went back to sleep and by 6 daily patient continued to sweat was trying to wake him up but patient was unresponsive just resisting with his arms and patient called EMS where they checked his glucoses and was found to be 120 agent was brought to the emergency department with altered mental status on arrival to the ER his Ravi scale was 3 and patient was intubated for airway protection. currently saying that the patient's did not want to be on the ventilator but stated that it's okay for a few days if he is not reversible didn't that she would like to consider weaning him off the machine. Initial evaluation in the ER revealed acute kidney injury patient is well known to have kidney disease secondary to his alcohol and liver disease according to the and quit drinking hard liquor and drinking now on the beer and couple shots of vodka on a random basis. Son at the bedside also agreeing with the above information. Review of Systems Unable to obtain as patient is currently sedated on Diprivan drip Past Medical History Past Medical History: Diabetes Mellitus, GERD/Reflux, Hypertension, Seizure Disorder Additional Past Medical History / Comment(s): NEUROPATHY LOWER EXTREMITIES, HX OF FEET FX'S. "CRACKED L-5". History of Any Multi-Drug Resistant Organisms: None Reported Past Surgical History: No Surgical Hx Reported Additional Past Surgical History / Comment(s): COLONOSCOPY, carotids surgery. Past Anesthesia/Blood Transfusion Reactions: No Reported Reaction Additional Past Anesthesia/Blood Transfusion Reaction / Comment(s): STATES BLOODPRESSURE "JAMES HIGH" AFTER COLONOSCOPY. Past Psychological History: No Psychological Hx Reported Smoking Status: Current every day smoker Past Alcohol Use History: Occasional Past Drug Use History: None Reported Medications and Allergies Home Medications Medication Instructions Recorded Confirmed Type Omeprazole [PriLOSEC] 20 mg PO DAILY 01/17/14 08/04/17 History Insulin Aspart [NovoLOG 90 units SQ DAILY 02/09/14 08/04/17 History (formulary)] ALPRAZolam [Xanax] 0.5 mg PO DAILY PRN 04/23/15 08/04/17 History PARoxetine HCL [Paxil] 30 mg PO DAILY 07/18/16 08/04/17 History Ergocalciferol [Vitamin D2] 50,000 unit PO Q7D 08/04/17 08/04/17 History Lisinopril [Zestril] 20 mg PO DAILY 08/04/17 08/04/17 History amLODIPine BESYLATE [Norvasc] 10 mg PO DAILY 08/04/17 08/04/17 History levETIRAcetam [Keppra] 500 mg PO BID 08/04/17 08/04/17 History Allergies Allergy/AdvReac Type Severity Reaction Status Date / Time No Known Allergies Allergy Verified 08/04/17 13:26 Physical Exam Vitals: Vital Signs Temp Pulse Resp BP Pulse Ox 08/04/17 12:49 133/62 08/04/17 12:39 97.4 F L 87 10 L 95 Intake and Output 08/03/17 08/04/17 08/04/17 22:59 06:59 14:59 Intake Total 3.467 Output Total 500 Balance -496.533 Intake: Intake, IV Titration 3.467 Amount Propofol 1,000 mg In 3.467 Empty Bag 1 bag @ Titrate IV .Q0M [facility] Rx#: [id number] Output: Urine 500 Uretheral ([place]) 500 Other: Weight 108.862 kg Gen.: Sedated does not follow command Heart: Normal S1-S2 Lungs: Clear to auscultation bilaterally Abdomen: Soft, no tenderness, positive bowel sounds in all 4 quadrant no guarding or rebound, distended Skin: No new rash Psych: Alert and oriented 0 Neuro: Patient was resisting with his arms 1 was off sedation but currently sedated and unable to assess Lower extremity positive for trace edema Results CBC & Chem 7: 08/04/17 12:55 08/04/17 12:55 Labs: Abnormal Lab Results - Last 24 Hours (Table) 08/04/17 08/04/17 08/04/17 Range/Units 12:55 12:55 12:55 RBC 4.02 L (4.30-5.90) m/uL Hgb 12.6 L (13.0-17.5) gm/dL MCV 100.6 H (80.0-100.0) fL Potassium 6.0 H (3.5-5.1) mmol/L Carbon Dioxide 19 L (22-30) mmol/L BUN 35 H (9-20) mg/dL Creatinine 2.97 H (0.66-1.25) mg/dL AST 468 H (17-59) U/L ALT 263 H (21-72) U/L CK-MB (CK-2) 3.9 H* (0.0-2.4) ng/mL Assessment and Plan Assessment: 1. Vent dependent respiratory failure. 2. Acute encephalopathy with unclear etiology and likely multifactorial in nature. 3. Alcohol abuse. 4. Polysubstance abuse including narcotics. 5. Diabetes mellitus type 1 since age 17 controlled with the pump. 6. Acute kidney injury. 7. Liver cirrhosis. 8. Acute hypokalemia. 9. Anxiety and depression. 10. Hypertension. 11. Seizure disorder. 12. GERD. Patient will be admitted to the intensive care unit, computed tomography scan was done and result is still pending, we would consider MRI of the brain if the CT is negative to rule out any ischemic event. Etiology likely related to polysubstance abuse and we will monitor patient closely continuous sedation at this point wean off as tolerated admitted patients to the intensive care unit continue with insulin/diabetes management continue with gentle hydration and monitoring his kidney function closely provide Kayexalate and repeat his electrolytes in 4 hours I would like to follow-up on liver enzymes during this hospital stay hold all his psych medication at this point and consider psych evaluation if indicated I would like to continue with his seizure medication and consult critical care for further evaluation. Plan discussed with ER physician at the bedside and with family at the bedside as well. CODE STATUS currently is full but would like to consider extubation if patient is not improved in the next few days
[2017-08-04 14:34] LABS: ABG Base Excess -14.3 mmol/L; ABG HCO3 14 mmol/L (21-25); ABG PCO2 40 mmHg (35-45); ABG PO2 187 mmHg (83-108); ABG TCO2 16 mmol/L (19-24)
[2017-08-04 14:35] LABS: ABG PH 7.16 (7.35-7.45)
[2017-08-04] MEDS ORDERED: NALOXONE 0.4 MG/ML 1 ML VIAL IV PRN (15:07)
[2017-08-04] MEDS ORDERED: IPRATROPIUM-ALBUTEROL 3 ML NEB INHALATION PRN (15:07)
[2017-08-04] MEDS: DEXTROSE 5% IN WATER 1,000 ML with SODIUM BICARB (1 MEQ/ML) 150 ML IV SCH ×2 (15:27→20:42)
[2017-08-04 18:10] LABS: Glucose,Whole Blood 205 mg/dL (75-99)
[2017-08-04] MEDS: NOREPINEPHRIN 4 MG-0.9% NS PMX 4 MG/250 ML ML IV SCH (18:40)
[2017-08-04 19:19] LABS: ABG Base Excess -13.2 mmol/L; ABG HCO3 16 mmol/L (21-25); ABG PCO2 48 mmHg (35-45); ABG PO2 196 mmHg (83-108); ABG TCO2 17 mmol/L (19-24)
[2017-08-04 19:21] LABS: ABG PH 7.13 (7.35-7.45)
[2017-08-04] MEDS ORDERED: VANCOMYCIN IV PER PHARMACY 1 EACH MISC MISCELLANE PRN (19:33)
[2017-08-04] MEDS ORDERED: VANCOMYCIN 1,750 MG in SODIUM CHLORIDE 0.9% 250 ML IVPB STA (19:48)
[2017-08-04] MEDS ORDERED: SODIUM BICARB 8.4% 50 ML SYR (1 MEQ/ML) IV ONE (19:53)
[2017-08-04] MEDS ORDERED: INSULIN REGULAR BOLUS (FROM DRIP BAG) IV PRN (20:10)
[2017-08-04] MEDS: CHLORHEXIDINE GLUCONATE 15 ML CUP MUCOUS MEM SCH (20:19)
[2017-08-04] MEDS: SODIUM CHLORIDE 0.9% 1,000 ML IV SCH (20:26)
[2017-08-04] MEDS: INSULIN REGULAR 100 UNIT in SODIUM CHLORIDE 0.9% 100 ML IV SCH (20:47)
[2017-08-04 20:48] LABS: Glucose,Whole Blood 393 mg/dL (75-99)
[2017-08-04 21:42] LABS: Glucose,Whole Blood 306 mg/dL (75-99)
[2017-08-04 22:00] LABS: Glucose,Whole Blood 297 mg/dL (75-99)
[2017-08-04 22:12] LABS: ABG Base Excess -10.8 mmol/L; ABG HCO3 17 mmol/L (21-25); ABG Oxygen Saturation 95.4 % (94-97); ABG PCO2 43 mmHg (35-45); ABG PH 7.21 (7.35-7.45); ABG PO2 79 mmHg (83-108); ABG TCO2 18 mmol/L (19-24)
[2017-08-04] MEDS: PIPERACILLIN-TAZOBACTAM 3.375 GM in DEXTROSE/WATER 1 50ML.BAG IVPB SCH (22:52)
[2017-08-04 23:13] VITALS: BMI 34.4
[2017-08-04 23:29] LABS: Glucose,Whole Blood 258 mg/dL (75-99)
[2017-08-04 23:53] LABS: Hemoglobin A1C 7.9 % (4.0-6.0)
[2017-08-05] MEDS ORDERED: INSULIN ASPART 100 UNIT/ML 1 ML 10 ML VIAL SQ SCH
[2017-08-05] MEDS: PROPOFOL 1,000 MG in EMPTY BAG 1 BAG IV SCH ×3 (01:25→07:57)
[2017-08-05 01:29] LABS: Glucose,Whole Blood 190 mg/dL (75-99)
[2017-08-05 04:45] LABS: Glucose,Whole Blood 177 mg/dL (75-99)
[2017-08-05 04:45] LABS: Glucose,Whole Blood 154 mg/dL (75-99)
[2017-08-05 04:45] LABS: Glucose,Whole Blood 142 mg/dL (75-99)
[2017-08-05 05:06] LABS: HCT 32.1 % (39.0-53.0); HGB 11.1 gm/dL (13.0-17.5); MCH 32.5 pg (25.0-35.0); MCHC 34.7 g/dL (31.0-37.0); Mean Platelet Volume 6.9; Platelet Count 286 k/uL (150-450); RBC 3.43 m/uL (4.30-5.90); WBC 12.9 k/uL (3.8-10.6)
[2017-08-05 05:12] LABS: Glucose,Whole Blood 220 mg/dL (75-99)
[2017-08-05 05:12] LABS: Glucose,Whole Blood 174 mg/dL (75-99)
[2017-08-05] MEDS: NOREPINEPHRIN 4 MG-0.9% NS PMX 4 MG/250 ML ML IV SCH (05:12)
[2017-08-05 05:16] LABS: Calcium 7.6 mg/dL (8.4-10.2); MCV 93.7 fL (80.0-100.0); Magnesium 1.8 mg/dL (1.6-2.3); Phosphorus 5.6 mg/dL (2.5-4.5); Potassium 3.8 mmol/L (3.5-5.1); Total Bilirubin 0.2 mg/dL (0.2-1.3); Total Protein 5.4 g/dL (6.3-8.2)
[2017-08-05 06:08] LABS: Glucose,Whole Blood 222 mg/dL (75-99)
[2017-08-05 06:11] LABS: Band Neutrophils % 9 %; Lymphocytes # (M) 0.39 k/uL (1.0-4.8); Metamyelocytes # (M) 0.13 k/uL (0); Metamyelocytes % 1 %; Monocytes # (M) 0.52 k/uL (0-1.0); Neutrophils % (M) 83 %; Nucleated Red Blood Cells 0 /100 WBC (0-0); Total Cells Counted 100
--- NOTE | 2017-08-05 06:43 | XR ---
EXAMINATION TYPE: XR chest 1V portable DATE OF EXAM: 08/05/2017 HISTORY: Tube placement. REFERENCE: Previous study dated 08/04/2017. FINDINGS: The patient is ET tube and NG tube remain in place, unchanged in appearance. Heart size upper limits of normal. There is left basilar airspace disease. There is a small left effu clay. The right lung is clear. IMPRESSION: 1. IMPROVING CHANGES OF HEART FAILURE. 2. LEFT BASILAR AIRSPACE DISEASE. 3. SMALL LEFT EFFUSION.
[2017-08-05 07:07] LABS: Glucose,Whole Blood 184 mg/dL (75-99)
[2017-08-05] MEDS: IPRATROPIUM-ALBUTEROL 3 ML NEB INHALATION PRN ×2 (07:20→11:18)
[2017-08-05] MEDS: PANTOPRAZOLE 40 MG/10 ML VIAL IV SCH (07:56)
[2017-08-05] MEDS: CHLORHEXIDINE GLUCONATE 15 ML CUP MUCOUS MEM SCH (07:56)
[2017-08-05 08:10] LABS: Glucose,Whole Blood 169 mg/dL (75-99)
[2017-08-05 08:11] LABS: ABG Base Excess -0.5 mmol/L; ABG HCO3 24 mmol/L (21-25); ABG Oxygen Saturation 96.3 % (94-97); ABG PCO2 40 mmHg (35-45); ABG PO2 91 mmHg (83-108); ABG TCO2 26 mmol/L (19-24)
[2017-08-05] MEDS: PIPERACILLIN-TAZOBACTAM 3.375 GM in DEXTROSE/WATER 1 50ML.BAG IVPB SCH ×2 (09:03→22:30)
[2017-08-05] MEDS: DEXTROSE 5% IN WATER 1,000 ML with SODIUM BICARB (1 MEQ/ML) 150 ML IV SCH (09:04)
[2017-08-05 09:05] LABS: Glucose,Whole Blood 166 mg/dL (75-99)
[2017-08-05 10:08] LABS: Glucose,Whole Blood 126 mg/dL (75-99)
[2017-08-05 11:11] LABS: Glucose,Whole Blood 167 mg/dL (75-99)
[2017-08-05 12:09] LABS: Glucose,Whole Blood 186 mg/dL (75-99)
[2017-08-05 13:18] LABS: Glucose,Whole Blood 172 mg/dL (75-99)
[2017-08-05] MEDS ORDERED: VANCOMYCIN 1,750 MG in SODIUM CHLORIDE 0.9% 250 ML IVPB SCH (14:00)
[2017-08-05 14:19] LABS: Glucose,Whole Blood 149 mg/dL (75-99)
--- NOTE | 2017-08-05 15:21 | P.CNPUL ---
History of Present Illness Consult date: 08/05/17 Requesting physician: Rico Matias Reason for consult: other (Acute respiratory failure secondary to multiple drugs overdose.) Chief complaint: Altered mental status History of present illness: This is a 51-year-old white male with history of alcohol abuse, polysubstance abuse, presented to the ER with acute altered mental status. noted that the patient had significant amount of alcohol intake including beer and vodka, in addition to this he took one tablet of 50 mg of morphine. Went to sleep, and in the morning the patient was sweating, and noted to be very diaphoretic. Later, the patient became up trended and combative. EMS arrived, his blood sugar was 120, patient had a Glascow coma score of 3, intubated for airways protection, and brought into the ER. I saw the patient early this morning around 2 AM, and he was on mechanical ventilation. Kept him on mechanical ventilation, adjusted his ventilator settings, and I felt that his presentation is mostly a presentation of acute hypoxic respiratory failure secondary to multiple drugs overdose. I evaluated the patient this morning, and I felt that the patient was arousable, followed simple instructions, given a trial of CPAP and pressure support of 8, and he tolerated that trial quite well. Patient was all along off propofol since my evaluation earlier this morning, proceeded to extubating the patient to a nasal cannula. CT of the brain showed chronic maxillary sinus disease otherwise unremarkable. Chest x-ray showed initially findings of mild congestive heart failure, however follow-up chest x-ray showed mostly left basilar atelectasis, possibly infiltrates. And there is also small left pleural effusion. Review of Systems Review of systems could not be obtained, patient is intubated, on mechanical ventilation, and no family members at bedside. ROS unobtainable: due to endotracheal tube Past Medical History Past Medical History: Diabetes Mellitus, GERD/Reflux, Hypertension, Seizure Disorder Additional Past Medical History / Comment(s): NEUROPATHY LOWER EXTREMITIES, HX OF FEET FX'S. "CRACKED L-5". History of Any Multi-Drug Resistant Organisms: None Reported Past Surgical History: No Surgical Hx Reported Additional Past Surgical History / Comment(s): COLONOSCOPY, carotids endaterectomy (right). Past Anesthesia/Blood Transfusion Reactions: No Reported Reaction Additional Past Anesthesia/Blood Transfusion Reaction / Comment(s): STATES BLOOD PRESSURE "JAMES HIGH" AFTER COLONOSCOPY. Past Psychological History: No Psychological Hx Reported Smoking Status: Current every day smoker Past Alcohol Use History: Abuse Additional Past Alcohol Use History / Comment(s): Patient drinks 2 to 3 * per week. 8-10 beers per sitting. Past Drug Use History: None Reported - Past Family History Mother Family Medical History: Diabetes Mellitus Additional Family Medical History / Comment(s): crohn's disease, Medications and Allergies Home Medications Medication Instructions Recorded Confirmed Type Omeprazole [PriLOSEC] 20 mg PO DAILY 01/17/14 08/04/17 History Insulin Aspart [NovoLOG 90 units SQ DAILY 02/09/14 08/04/17 History (formulary)] ALPRAZolam [Xanax] 0.5 mg PO DAILY PRN 04/23/15 08/04/17 History PARoxetine HCL [Paxil] 30 mg PO DAILY 07/18/16 08/04/17 History Ergocalciferol [Vitamin D2] 50,000 unit PO Q7D 08/04/17 08/04/17 History Lisinopril [Zestril] 20 mg PO DAILY 08/04/17 08/04/17 History amLODIPine BESYLATE [Norvasc] 10 mg PO DAILY 08/04/17 08/04/17 History levETIRAcetam [Keppra] 500 mg PO BID 08/04/17 08/04/17 History Allergies Allergy/AdvReac Type Severity Reaction Status Date / Time No Known Allergies Allergy Verified 08/04/17 13:26 Physical Exam Vitals: Vital Signs Temp Pulse Pulse Pulse Resp BP BP 08/05/17 14:30 103 H 19 119/55 08/05/17 14:00 103 H 19 113/53 08/05/17 13:30 105 H 20 116/53 08/05/17 13:00 106 H 21 124/56 08/05/17 12:30 105 H 20 95/44 08/05/17 12:00 98.9 F 110 H 20 90/47 08/05/17 11:30 103 H 18 91/52 08/05/17 11:19 92 08/05/17 11:00 95 14 104/49 08/05/17 10:30 94 18 107/55 08/05/17 10:00 94 15 119/52 08/05/17 09:47 03/18/18 09:30 92 12 134/59 03/18/18 09:00 95 19 129/49 03/18/18 08:30 98 20 118/65 03/18/18 08:00 99.0 F 93 20 118/60 03/18/18 07:47 95 03/18/18 07:30 93 20 116/61 03/18/18 07:17 94 03/18/18 07:00 95 25 H 127/60 03/18/18 06:30 96 16 106/71 03/18/18 06:00 96 11 L 115/55 03/18/18 05:30 92 19 111/55 03/18/18 05:03 92 19 110/52 03/18/18 05:00 92 20 110/52 03/18/18 04:30 94 10 L 103/51 03/18/18 04:00 100.6 F H 97 95 21 108/49 103/58 03/18/18 03:30 103 H 28 H 122/52 03/18/18 03:00 94 23 102/48 03/18/18 02:30 94 19 99/52 03/18/18 02:00 93 20 95/47 03/18/18 01:30 92 20 87/47 03/18/18 01:00 92 16 95/48 03/18/18 00:47 91 03/18/18 00:30 92 19 97/54 03/18/18 00:26 92 03/18/18 00:00 100.1 F H 93 19 100/50 03/17/18 23:30 95 18 107/49 03/17/18 23:00 97 17 114/51 03/17/18 22:30 98 17 97/50 03/17/18 22:00 96 18 96/50 03/17/18 21:30 95 17 92/44 03/17/18 21:09 90 17 96/48 03/17/18 21:00 91 18 96/48 03/17/18 20:45 90 18 102/52 03/17/18 20:30 92 16 93/45 03/17/18 20:15 90 33 H 96/47 03/17/18 20:00 98.4 F 85 14 82/47 03/17/18 19:45 85 18 97/50 03/17/18 19:30 85 20 80/50 03/17/18 19:15 81 17 93/53 03/17/18 19:00 79 18 75/50 0317/18 18:45 77 20 77/47 17/18 18:30 77 23 75/41 03/17/18 18:15 98.9 F 81 20 95/57 03/17/18 18:09 97.7 F 94 20 80/54 17/18 17:31 76 20 78/45 17/18 17:10 76 20 75/50 0317/18 16:25 69 20 77/50 Pulse Ox 18 14:30 95 08/05/18 14:00 95 18 13:30 95 08/05/18 13:00 95 18 12:30 94 L 18 12:00 92 L 18 11:30 96 08/05/18 11:19 18 11:00 96 18 10:30 100 08/05/18 10:00 100 18/18 09:47 100 18/18 09:30 100 18 09:00 100 18/18 08:30 100 18 08:00 99 18 07:47 18 07:30 100 18/18 07:17 18 07:00 100 1818 06:30 100 18/18 06:00 100 18/18 05:30 100 08/05/18 05:03 100 1818 05:00 100 18/18 04:30 98 18/18 04:00 98 18/18 03:30 99 18/18 03:00 99 18/18 02:30 99 18/18 02:00 99 18/18 01:30 100 18/18 01:00 100 18/18 00:47 18/18 00:30 100 18/18 00:26 18/18 00:00 100 1718 23:30 99 1718 23:00 98 1718 22:30 98 1718 22:00 98 08/04/17 21:30 99 08/04/17 21:09 97 08/04/17 21:00 97 08/04/17 20:45 97 08/04/17 20:30 98 08/04/17 20:15 97 08/04/17 20:00 97 08/04/17 19:45 96 08/04/17 19:30 98 08/04/17 19:15 100 08/04/17 19:00 100 08/04/17 18:45 100 08/04/17 18:30 99 08/04/17 18:15 100 08/04/17 18:09 100 08/04/17 17:31 100 08/04/17 17:10 100 08/04/17 16:25 100 Intake and Output 08/05/17 08/05/17 08/05/17 06:59 14:59 22:59 Intake Total 1551.102 999.303 Output Total 580 725 Balance 971.102 274.303 Intake: IV 1240 647.5 Dextrose 5% in Water 1, 1050 450 000 ml @ 150 mls/hr IV . Q7H40M MORGAN with Sodium Bicarb (1 Meq/ml) 150 ml Rx#:[id number] Piperacillin-Tazobactam 3 50 37.5 .375 gm In Dextrose/Water 1 50ml.bag @ 12.5 mls/hr IVPB Q12H MORGAN Rx#: [id number] Sodium Chloride 0.9% 1, 140 160 000 ml @ 20 mls/hr IV . Q24H MORGAN Rx#:[id number] Intake, IV Titration 311.102 351.803 Amount Insulin Regular 100 unit 29.247 13.603 In Sodium Chloride 0.9% 100 ml @ Per Protocol IV .Q0M MORGAN Rx#:[id number] Norepinephrin 4 mg-0.9% 238.187 217.750 Ns Pmx 4 mg In 250 ml @ Titrate IV .Q0M MORGAN Rx#: [id number] Propofol 1,000 mg In 43.668 120.45 Empty Bag 1 bag @ Titrate IV .Q0M MORGAN Rx#: [id number] Output: Urine 580 725 Other: Voiding Method Indwelling Catheter Indwelling Catheter Weight 105.1 kg Physical Exam: Revealed a 51-year-old white male on mechanical ventilation, sedated, in no distress. Head: Atraumatic normocephalic. Eyes: PERRLA, EOMI, no icterus. HEENT:[Neck is supple.] [No neck masses.] [No thyromegaly.] [No JVD.] No neck rigidity, cervical lymphadenopathy, endotracheal tube is intact. Chest: [Minimal fine crackles at the bases, otherwise unremarkable, symmetrical chest expansion noted. Cardiac Exam: [Normal S1 and S2, no S3 gallop, no murmur.] Abdomen: [Soft, nontender, no megaly, no rebound, no guarding, normal bowel sounds.] Extremities: [No clubbing, no edema, no cyanosis.] Neurological Exam: Cannot be assessed, patient is on propofol, fully sedated Lymphatics: No lymphadenopathy. Psychiatric: Could not be assessed patient is sedated on propofol. Results - Laboratory Findings CBC and BMP: 08/05/17 04:38 08/05/17 04:38 ABG ABG pH 7.40 (7.35-7.45) 08/05/17 08:08 ABG pCO2 40 mmHg (35-45) 08/05/17 08:08 ABG pO2 91 mmHg (83-108) 08/05/17 08:08 ABG O2 Saturation 96.3 % (94-97) 08/05/17 08:08 PT/INR, D-dimer PT 9.9 sec (9.0-12.0) 08/04/17 12:55 INR 1.0 (<1.2) 08/04/17 12:55 Abnormal lab findings: Abnormal Labs 08/04/17 08/04/17 08/04/17 12:55 12:55 12:55 WBC RBC 4.02 L Hgb 12.6 L Hct MCV 100.6 H Neutrophils # (Manual) Lymphocytes # (Manual) Metamyelocytes # (Man) ABG pH ABG pCO2 ABG pO2 ABG HCO3 ABG Total CO2 ABG O2 Saturation Sodium Potassium 6.0 H Carbon Dioxide 19 L BUN 35 H Creatinine 2.97 H Glucose POC Glucose (mg/dL) Calcium Phosphorus AST 468 H ALT 263 H CK-MB (CK-2) 3.9 H* Total Protein Albumin Urine Opiates Screen Urine Cocaine Screen 08/04/17 08/04/17 08/04/17 13:40 14:25 17:57 WBC RBC Hgb Hct MCV Neutrophils # (Manual) Lymphocytes # (Manual) Metamyelocytes # (Man) ABG pH 7.16 L* ABG pCO2 ABG pO2 187 H ABG HCO3 14 L ABG Total CO2 16 L ABG O2 Saturation 98.0 H Sodium Potassium Carbon Dioxide BUN Creatinine Glucose POC Glucose (mg/dL) 205 H Calcium Phosphorus AST ALT CK-MB (CK-2) Total Protein Albumin Urine Opiates Screen Detected H Urine Cocaine Screen Detected H 08/04/17 08/04/17 08/04/17 18:37 19:14 20:45 WBC RBC Hgb Hct MCV Neutrophils # (Manual) Lymphocytes # (Manual) Metamyelocytes # (Man) ABG pH 7.13 L* ABG pCO2 48 H ABG pO2 196 H ABG HCO3 16 L ABG Total CO2 17 L ABG O2 Saturation 99.0 H Sodium Potassium 6.2 H* Carbon Dioxide BUN Creatinine Glucose POC Glucose (mg/dL) 393 H Calcium Phosphorus AST ALT CK-MB (CK-2) Total Protein Albumin Urine Opiates Screen Urine Cocaine Screen 08/04/17 08/04/17 08/04/17 21:39 21:59 22:08 WBC RBC Hgb Hct MCV Neutrophils # (Manual) Lymphocytes # (Manual) Metamyelocytes # (Man) ABG pH 7.21 L ABG pCO2 ABG pO2 79 L ABG HCO3 17 L ABG Total CO2 18 L ABG O2 Saturation Sodium Potassium Carbon Dioxide BUN Creatinine Glucose POC Glucose (mg/dL) 306 H 297 H Calcium Phosphorus AST ALT CK-MB (CK-2) Total Protein Albumin Urine Opiates Screen Urine Cocaine Screen 08/04/17 08/05/17 08/05/17 23:28 01:28 02:15 WBC RBC Hgb Hct MCV Neutrophils # (Manual) Lymphocytes # (Manual) Metamyelocytes # (Man) ABG pH ABG pCO2 ABG pO2 ABG HCO3 ABG Total CO2 ABG O2 Saturation Sodium Potassium Carbon Dioxide BUN Creatinine Glucose POC Glucose (mg/dL) 258 H 190 H 154 H Calcium Phosphorus AST ALT CK-MB (CK-2) Total Protein Albumin Urine Opiates Screen Urine Cocaine Screen 08/05/17 08/05/17 08/05/17 03:28 04:12 04:38 WBC 12.9 H RBC 3.43 L Hgb 11.1 L Hct 32.1 L MCV Neutrophils # (Manual) 11.80 H Lymphocytes # (Manual) 0.39 L Metamyelocytes # (Man) 0.13 H ABG pH ABG pCO2 ABG pO2 ABG HCO3 ABG Total CO2 ABG O2 Saturation Sodium Potassium Carbon Dioxide BUN Creatinine Glucose POC Glucose (mg/dL) 142 H 177 H Calcium Phosphorus AST ALT CK-MB (CK-2) Total Protein Albumin Urine Opiates Screen Urine Cocaine Screen 08/05/17 08/05/17 08/05/17 04:38 05:09 05:10 WBC RBC Hgb Hct MCV Neutrophils # (Manual) Lymphocytes # (Manual) Metamyelocytes # (Man) ABG pH ABG pCO2 ABG pO2 ABG HCO3 ABG Total CO2 ABG O2 Saturation Sodium 136 L Potassium Carbon Dioxide BUN 46 H Creatinine 2.00 H Glucose 189 H POC Glucose (mg/dL) 220 H 174 H Calcium 7.6 L Phosphorus 5.6 H AST 1045 H ALT 598 H CK-MB (CK-2) Total Protein 5.4 L Albumin 3.0 L Urine Opiates Screen Urine Cocaine Screen 08/05/17 08/05/17 08/05/17 06:05 07:04 08:08 WBC RBC Hgb Hct MCV Neutrophils # (Manual) Lymphocytes # (Manual) Metamyelocytes # (Man) ABG pH ABG pCO2 ABG pO2 ABG HCO3 ABG Total CO2 26 H ABG O2 Saturation Sodium Potassium Carbon Dioxide BUN Creatinine Glucose POC Glucose (mg/dL) 222 H 184 H Calcium Phosphorus AST ALT CK-MB (CK-2) Total Protein Albumin Urine Opiates Screen Urine Cocaine Screen 08/05/17 08/05/17 08/05/17 08:08 09:02 10:07 WBC RBC Hgb Hct MCV Neutrophils # (Manual) Lymphocytes # (Manual) Metamyelocytes # (Man) ABG pH ABG pCO2 ABG pO2 ABG HCO3 ABG Total CO2 ABG O2 Saturation Sodium Potassium Carbon Dioxide BUN Creatinine Glucose POC Glucose (mg/dL) 169 H 166 H 126 H Calcium Phosphorus AST ALT CK-MB (CK-2) Total Protein Albumin Urine Opiates Screen Urine Cocaine Screen 08/05/17 08/05/17 08/05/17 11:09 12:08 13:15 WBC RBC Hgb Hct MCV Neutrophils # (Manual) Lymphocytes # (Manual) Metamyelocytes # (Man) ABG pH ABG pCO2 ABG pO2 ABG HCO3 ABG Total CO2 ABG O2 Saturation Sodium Potassium Carbon Dioxide BUN Creatinine Glucose POC Glucose (mg/dL) 167 H 186 H 172 H Calcium Phosphorus AST ALT CK-MB (CK-2) Total Protein Albumin Urine Opiates Screen Urine Cocaine Screen 08/05/17 14:18 WBC RBC Hgb Hct MCV Neutrophils # (Manual) Lymphocytes # (Manual) Metamyelocytes # (Man) ABG pH ABG pCO2 ABG pO2 ABG HCO3 ABG Total CO2 ABG O2 Saturation Sodium Potassium Carbon Dioxide BUN Creatinine Glucose POC Glucose (mg/dL) 149 H Calcium Phosphorus AST ALT CK-MB (CK-2) Total Protein Albumin Urine Opiates Screen Urine Cocaine Screen - Diagnostic Findings Chest x-ray: image reviewed (As noted in HPI.) Assessment and Plan Assessment: Impression: 1 acute hypoxic respiratory failure requiring intubation and mechanical ventilation secondary to polysubstance abuse including narcotics. 2 history of alcohol abuse and polysubstance abuse 3 history of diabetes type 1. Patient has insulin pump. 4 suspect aspiration pneumonia as noted on the chest x-ray. Hence the patient will remain on Zosyn for now. 5 multiple comorbidities including hypertension, seizure disorder, history of GERD, history of liver cirrhosis, history of peripheral neuropathy, most likely secondary to diabetes. Recommendation: Patient will be given a trial of pressure support and CPAP, if tolerated will proceed to weaning and extubation. Continue in the meantime antibiotics, bronchodilators, GI prophylaxis, DVT prophylaxis, will address nutritional support and that will depend on his overall status post extubation if done. We'll continue to follow. Time with Patient: Greater than 30
[2017-08-05 15:28] LABS: Glucose,Whole Blood 138 mg/dL (75-99)
[2017-08-05 16:06] LABS: Glucose,Whole Blood 156 mg/dL (75-99)
[2017-08-05 17:11] LABS: Glucose,Whole Blood 191 mg/dL (75-99)
[2017-08-05] MEDS: LORazepam 2 MG/ML INJ IV PRN (18:08)
[2017-08-05 18:16] LABS: Glucose,Whole Blood 226 mg/dL (75-99)
[2017-08-05 19:05] LABS: Glucose,Whole Blood 233 mg/dL (75-99)
[2017-08-05 20:45] LABS: Glucose,Whole Blood 249 mg/dL (75-99)
[2017-08-05] MEDS: INSULIN REGULAR 100 UNIT in SODIUM CHLORIDE 0.9% 100 ML IV SCH (20:48)
--- NOTE | 2017-08-05 21:25 | P.PN ---
Subjective Progress Note Date: 08/05/17 Principal diagnosis: VDRF, AMS pt continued to be hemodynamically stable and plan for extubation today Objective - Vital Signs Vital signs: Vital Signs Temp 99.8 F H 08/05/17 16:00 Pulse 117 H 08/05/17 19:00 Resp 20 08/05/17 19:00 BP 113/49 08/05/17 19:00 Pulse Ox 93 L 08/05/17 19:00 Intake & Output 08/05/17 08/05/17 08/06/17 06:59 18:59 06:59 Intake Total 2462.193 1091.575 392.003 Output Total 725 1050 50 Balance 1737.193 41.575 342.003 Weight 105.1 kg Intake: IV 2030 727.5 20 Dextrose 5% in Water 1, 1450 450 000 ml @ 150 mls/hr IV . Q7H40M [facility]GAN with Sodium Bicarb (1 Meq/ml) 150 ml Rx#:[id number] Piperacillin-Tazobactam 3 50 37.5 .375 gm In Dextrose/Water 1 50ml.bag @ 12.5 mls/hr IVPB Q12H [facility]GAN Rx#: [id number] Sodium Chloride 0.9% 1, 280 240 20 000 ml @ 20 mls/hr IV . Q24H [facility]GAN Rx#:[id number] Vancomycin 1,750 mg In 250 Sodium Chloride 0.9% 250 ml @ 125 mls/hr IVPB ONCE STA Rx#:[id number] Intake, IV Titration 432.193 364.075 12.003 Amount Insulin Regular 100 unit 41.620 25.875 12.003 In Sodium Chloride 0.9% 100 ml @ Per Protocol IV .Q0M MORGAN Rx#:[id number] Norepinephrin 4 mg-0.9% 247.875 217.750 Ns Pmx 4 mg In 250 ml @ Titrate IV .Q0M MORGAN Rx#: [id number] Propofol 1,000 mg In 142.698 120.45 Empty Bag 1 bag @ Titrate IV .Q0M MORGAN Rx#: [id number] Oral 360 Output: Urine 725 1050 50 Other: Voiding Method Indwelling Catheter Indwelling Catheter - Constitutional General appearance: Present: obese - Respiratory Respiratory: bilateral: diminished - Cardiovascular Heart sounds: normal: S1, S2 - Gastrointestinal General gastrointestinal: Present: distended, normal bowel sounds, soft - Psychiatric Psychiatric Comment(s): sedated - Labs CBC & Chem 7: 08/05/17 04:38 08/05/17 04:38 Labs: Abnormal Lab Results - Last 24 Hours (Table) 08/04/17 08/04/17 08/04/17 Range/Units 21:39 21:59 22:08 WBC (3.8-10.6) k/uL RBC (4.30-5.90) m/uL Hgb (13.0-17.5) gm/dL Hct (39.0-53.0) % Neutrophils # (Manual) (1.3-7.7) k/uL Lymphocytes # (Manual) (1.0-4.8) k/uL Metamyelocytes # (Man) (0) k/uL ABG pH 7.21 L (7.35-7.45) ABG pO2 79 L (83-108) mmHg ABG HCO3 17 L (21-25) mmol/L ABG Total CO2 18 L (19-24) mmol/L Sodium (137-145) mmol/L BUN (9-20) mg/dL Creatinine (0.66-1.25) mg/dL Glucose (74-99) mg/dL POC Glucose (mg/dL) 306 H 297 H (75-99) mg/dL Calcium (8.4-10.2) mg/dL Phosphorus (2.5-4.5) mg/dL AST (17-59) U/L ALT (21-72) U/L Total Protein (6.3-8.2) g/dL Albumin (3.5-5.0) g/dL 08/04/17 08/05/17 08/05/17 Range/Units 23:28 01:28 02:15 WBC (3.8-10.6) k/uL RBC (4.30-5.90) m/uL Hgb (13.0-17.5) gm/dL Hct (39.0-53.0) % Neutrophils # (Manual) (1.3-7.7) k/uL Lymphocytes # (Manual) (1.0-4.8) k/uL Metamyelocytes # (Man) (0) k/uL ABG pH (7.35-7.45) ABG pO2 (83-108) mmHg ABG HCO3 (21-25) mmol/L ABG Total CO2 (19-24) mmol/L Sodium (137-145) mmol/L BUN (9-20) mg/dL Creatinine (0.66-1.25) mg/dL Glucose (74-99) mg/dL POC Glucose (mg/dL) 258 H 190 H 154 H (75-99) mg/dL Calcium (8.4-10.2) mg/dL Phosphorus (2.5-4.5) mg/dL AST (17-59) U/L ALT (21-72) U/L Total Protein (6.3-8.2) g/dL Albumin (3.5-5.0) g/dL 08/05/17 08/05/17 08/05/17 Range/Units 03:28 04:12 04:38 WBC 12.9 H (3.8-10.6) k/uL RBC 3.43 L (4.30-5.90) m/uL Hgb 11.1 L (13.0-17.5) gm/dL Hct 32.1 L (39.0-53.0) % Neutrophils # (Manual) 11.80 H (1.3-7.7) k/uL Lymphocytes # (Manual) 0.39 L (1.0-4.8) k/uL Metamyelocytes # (Man) 0.13 H (0) k/uL ABG pH (7.35-7.45) ABG pO2 (83-108) mmHg ABG HCO3 (21-25) mmol/L ABG Total CO2 (19-24) mmol/L Sodium (137-145) mmol/L BUN (9-20) mg/dL Creatinine (0.66-1.25) mg/dL Glucose (74-99) mg/dL POC Glucose (mg/dL) 142 H 177 H (75-99) mg/dL Calcium (8.4-10.2) mg/dL Phosphorus (2.5-4.5) mg/dL AST (17-59) U/L ALT (21-72) U/L Total Protein (6.3-8.2) g/dL Albumin (3.5-5.0) g/dL 08/05/17 08/05/1718 Range/Units 04:38 05:09 05:10 WBC (3.8-10.6) k/uL RBC (4.30-5.90) m/uL Hgb (13.0-17.5) gm/dL Hct (39.0-53.0) % Neutrophils # (Manual) (1.3-7.7) k/uL Lymphocytes # (Manual) (1.0-4.8) k/uL Metamyelocytes # (Man) (0) k/uL ABG pH (7.35-7.45) ABG pO2 (83-108) mmHg ABG HCO3 (21-25) mmol/L ABG Total CO2 (19-24) mmol/L Sodium 136 L (137-145) mmol/L BUN 46 H (9-20) mg/dL Creatinine 2.00 H (0.66-1.25) mg/dL Glucose 189 H (74-99) mg/dL POC Glucose (mg/dL) 220 H 174 H (75-99) mg/dL Calcium 7.6 L (8.4-10.2) mg/dL Phosphorus 5.6 H (2.5-4.5) mg/dL AST 1045 H (17-59) U/L ALT 598 H (21-72) U/L Total Protein 5.4 L (6.3-8.2) g/dL Albumin 3.0 L (3.5-5.0) g/dL 08/05/17 08/05/17 08/05/17 Range/Units 06:05 07:04 08:08 WBC (3.8-10.6) k/uL RBC (4.30-5.90) m/uL Hgb (13.0-17.5) gm/dL Hct (39.0-53.0) % Neutrophils # (Manual) (1.3-7.7) k/uL Lymphocytes # (Manual) (1.0-4.8) k/uL Metamyelocytes # (Man) (0) k/uL ABG pH (7.35-7.45) ABG pO2 (83-108) mmHg ABG HCO3 (21-25) mmol/L ABG Total CO2 26 H (19-24) mmol/L Sodium (137-145) mmol/L BUN (9-20) mg/dL Creatinine (0.66-1.25) mg/dL Glucose (74-99) mg/dL POC Glucose (mg/dL) 222 H 184 H (75-99) mg/dL Calcium (8.4-10.2) mg/dL Phosphorus (2.5-4.5) mg/dL AST (17-59) U/L ALT (21-72) U/L Total Protein (6.3-8.2) g/dL Albumin (3.5-5.0) g/dL 08/05/17 08/05/17 08/05/17 Range/Units 08:08 09:02 10:07 WBC (3.8-10.6) k/uL RBC (4.30-5.90) m/uL Hgb (13.0-17.5) gm/dL Hct (39.0-53.0) % Neutrophils # (Manual) (1.3-7.7) k/uL Lymphocytes # (Manual) (1.0-4.8) k/uL Metamyelocytes # (Man) (0) k/uL ABG pH (7.35-7.45) ABG pO2 (83-108) mmHg ABG HCO3 (21-25) mmol/L ABG Total CO2 (19-24) mmol/L Sodium (137-145) mmol/L BUN (9-20) mg/dL Creatinine (0.66-1.25) mg/dL Glucose (74-99) mg/dL POC Glucose (mg/dL) 169 H 166 H 126 H (75-99) mg/dL Calcium (8.4-10.2) mg/dL Phosphorus (2.5-4.5) mg/dL AST (17-59) U/L ALT (21-72) U/L Total Protein (6.3-8.2) g/dL Albumin (3.5-5.0) g/dL 08/05/17 08/05/17 08/05/17 Range/Units 11:09 12:08 13:15 WBC (3.8-10.6) k/uL RBC (4.30-5.90) m/uL Hgb (13.0-17.5) gm/dL Hct (39.0-53.0) % Neutrophils # (Manual) (1.3-7.7) k/uL Lymphocytes # (Manual) (1.0-4.8) k/uL Metamyelocytes # (Man) (0) k/uL ABG pH (7.35-7.45) ABG pO2 (83-108) mmHg ABG HCO3 (21-25) mmol/L ABG Total CO2 (19-24) mmol/L Sodium (137-145) mmol/L BUN (9-20) mg/dL Creatinine (0.66-1.25) mg/dL Glucose (74-99) mg/dL POC Glucose (mg/dL) 167 H 186 H 172 H (75-99) mg/dL Calcium (8.4-10.2) mg/dL Phosphorus (2.5-4.5) mg/dL AST (17-59) U/L ALT (21-72) U/L Total Protein (6.3-8.2) g/dL Albumin (3.5-5.0) g/dL 08/05/17 08/05/17 08/05/17 Range/Units 14:18 15:27 16:04 WBC (3.8-10.6) k/uL RBC (4.30-5.90) m/uL Hgb (13.0-17.5) gm/dL Hct (39.0-53.0) % Neutrophils # (Manual) (1.3-7.7) k/uL Lymphocytes # (Manual) (1.0-4.8) k/uL Metamyelocytes # (Man) (0) k/uL ABG pH (7.35-7.45) ABG pO2 (83-108) mmHg ABG HCO3 (21-25) mmol/L ABG Total CO2 (19-24) mmol/L Sodium (137-145) mmol/L BUN (9-20) mg/dL Creatinine (0.66-1.25) mg/dL Glucose (74-99) mg/dL POC Glucose (mg/dL) 149 H 138 H 156 H (75-99) mg/dL Calcium (8.4-10.2) mg/dL Phosphorus (2.5-4.5) mg/dL AST (17-59) U/L ALT (21-72) U/L Total Protein (6.3-8.2) g/dL Albumin (3.5-5.0) g/dL 08/05/17 08/05/17 08/05/17 Range/Units 17:09 18:15 19:04 WBC (3.8-10.6) k/uL RBC (4.30-5.90) m/uL Hgb (13.0-17.5) gm/dL Hct (39.0-53.0) % Neutrophils # (Manual) (1.3-7.7) k/uL Lymphocytes # (Manual) (1.0-4.8) k/uL Metamyelocytes # (Man) (0) k/uL ABG pH (7.35-7.45) ABG pO2 (83-108) mmHg ABG HCO3 (21-25) mmol/L ABG Total CO2 (19-24) mmol/L Sodium (137-145) mmol/L BUN (9-20) mg/dL Creatinine (0.66-1.25) mg/dL Glucose (74-99) mg/dL POC Glucose (mg/dL) 191 H 226 H 233 H (75-99) mg/dL Calcium (8.4-10.2) mg/dL Phosphorus (2.5-4.5) mg/dL AST (17-59) U/L ALT (21-72) U/L Total Protein (6.3-8.2) g/dL Albumin (3.5-5.0) g/dL 08/05/17 Range/Units 20:44 WBC (3.8-10.6) k/uL RBC (4.30-5.90) m/uL Hgb (13.0-17.5) gm/dL Hct (39.0-53.0) % Neutrophils # (Manual) (1.3-7.7) k/uL Lymphocytes # (Manual) (1.0-4.8) k/uL Metamyelocytes # (Man) (0) k/uL ABG pH (7.35-7.45) ABG pO2 (83-108) mmHg ABG HCO3 (21-25) mmol/L ABG Total CO2 (19-24) mmol/L Sodium (137-145) mmol/L BUN (9-20) mg/dL Creatinine (0.66-1.25) mg/dL Glucose (74-99) mg/dL POC Glucose (mg/dL) 249 H (75-99) mg/dL Calcium (8.4-10.2) mg/dL Phosphorus (2.5-4.5) mg/dL AST (17-59) U/L ALT (21-72) U/L Total Protein (6.3-8.2) g/dL Albumin (3.5-5.0) g/dL Microbiology - Last 24 Hours (Table) 08/04/17 13:04 Gram Stain - Preliminary Sputum Sputum Culture - Preliminary Assessment and Plan Assessment: 1. Vent dependent respiratory failure. 2. Acute encephalopathy likely related to polysubstance abuse. 3. Alcohol abuse. 4. Polysubstance abuse including narcotics, alcohol and Cocaine 5. Diabetes mellitus type 1 since age 17 controlled with the pump. 6. Acute kidney injury. 7. Liver cirrhosis. 8. Acute hypokalemia. 9. Anxiety and depression. 10. Hypertension. 11. Seizure disorder. 12. GERD. Patient will be admitted to the intensive care unit, plan for extubation today, continue close monitoring VS closely and repeat blood work in am, continue hydration and resume home seizure meds. prognosis remain guarded. monitor pt's withdrawl signs. discussed with critical care and nursing staff. CODE STATUS currently is full but would like to consider extubation if patient is not improved in the next few days
[2017-08-05 22:00] LABS: Glucose,Whole Blood 159 mg/dL (75-99)
[2017-08-05] MEDS: levETIRAcetam 500 MG TAB PO SCH (22:31)
[2017-08-05] MEDS: SODIUM CHLORIDE 0.9% 1,000 ML IV SCH (22:31)
[2017-08-05 23:23] LABS: Glucose,Whole Blood 120 mg/dL (75-99)
[2017-08-06 00:24] LABS: Glucose,Whole Blood 157 mg/dL (75-99)
[2017-08-06 01:36] LABS: Glucose,Whole Blood 187 mg/dL (75-99)
[2017-08-06 02:31] LABS: Glucose,Whole Blood 174 mg/dL (75-99)
[2017-08-06 03:57] LABS: Glucose,Whole Blood 162 mg/dL (75-99)
[2017-08-06] MEDS: LORazepam 2 MG/ML INJ IV PRN (04:03)
[2017-08-06 04:47] LABS: Basophils % (A) 0 %; Eosinophils % (A) 0 %; HCT 29.7 % (39.0-53.0); HGB 10.3 gm/dL (13.0-17.5); Lymphocytes % (A) 11 %; MCH 32.2 pg (25.0-35.0); MCHC 34.7 g/dL (31.0-37.0); MCV 92.8 fL (80.0-100.0); Mean Platelet Volume 7.4; Monocytes # (A) 0.6 k/uL (0-1.0); Monocytes % (A) 6 %; Neutrophils # (A) 7.9 k/uL (1.3-7.7); Neutrophils % (A) 82 %; Platelet Count 210 k/uL (150-450); RBC 3.21 m/uL (4.30-5.90); RDW 13.2 % (11.5-15.5); WBC 9.6 k/uL (3.8-10.6)
[2017-08-06 04:58] LABS: Phosphorus 2.8 mg/dL (2.5-4.5); Potassium 3.6 mmol/L (3.5-5.1); Total Bilirubin 0.3 mg/dL (0.2-1.3); Total Protein 5.4 g/dL (6.3-8.2)
[2017-08-06 05:31] LABS: Glucose,Whole Blood 170 mg/dL (75-99)
[2017-08-06] MEDS ORDERED: ACETAMINOPHEN TAB 325 MG TAB PO PRN (05:35)
[2017-08-06 05:51] LABS: ABG Base Excess 2.1 mmol/L; ABG HCO3 27 mmol/L (21-25); ABG Oxygen Saturation 90.2 % (94-97); ABG PCO2 41 mmHg (35-45); ABG PH 7.42 (7.35-7.45); ABG PO2 57 mmHg (83-108); ABG TCO2 28 mmol/L (19-24)
[2017-08-06] MEDS ORDERED: ACETAMINOPHEN IV (For NPO) 1,000 MG in EMPTY BAG 1 BAG IVPB ONE (05:56)
[2017-08-06] MEDS ORDERED: POTASSIUM CHLORIDE ER 20 MEQ TAB.ER PO SCH (06:00)
[2017-08-06 06:46] LABS: Glucose,Whole Blood 165 mg/dL (75-99)
[2017-08-06 08:22] LABS: Glucose,Whole Blood 152 mg/dL (75-99)
[2017-08-06 09:42] LABS: ABG Base Excess 2.3 mmol/L; ABG HCO3 28 mmol/L (21-25); ABG Oxygen Saturation 85.5 % (94-97); ABG PCO2 52 mmHg (35-45); ABG PH 7.34 (7.35-7.45); ABG PO2 51 mmHg (83-108); ABG TCO2 30 mmol/L (19-24)
[2017-08-06 10:33] LABS: Glucose,Whole Blood 173 mg/dL (75-99)
[2017-08-06] MEDS: PANTOPRAZOLE 40 MG/10 ML VIAL IV SCH (10:37)
[2017-08-06] MEDS: levETIRAcetam 500 MG TAB PO SCH (10:45)
[2017-08-06] MEDS ORDERED: THIAMINE 100 MG/ML 2 ML VIAL IM STA (10:52)
[2017-08-06] MEDS ORDERED: LORazepam 2 MG/ML INJ IV PRN ×3 (10:52)
[2017-08-06 11:18] LABS: ABG Base Excess 3.2 mmol/L; ABG HCO3 28 mmol/L (21-25); ABG Oxygen Saturation 93.8 % (94-97); ABG PCO2 44 mmHg (35-45); ABG PH 7.41 (7.35-7.45); ABG PO2 65 mmHg (83-108); ABG TCO2 29 mmol/L (19-24)
--- NOTE | 2017-08-06 11:35 | P.PN ---
Subjective Progress Note Date: 08/06/17 Principal diagnosis: Acute respiratory failure alcohol abuse and cocaine abuse morphine abuse Progress note dated 08/06/2017 This is a 51-year-old male with a history of alcohol abuse/polysubstance abuse who presented to the emergency room with status changes. The patient went on to develop respiratory failure and was intubated on August 04. He was extubated yesterday on August 05. Currently the patient's on O2 6 L saline IV at 20 mL an hour and insulin drip at 1 unit an hour. We did blood gases this morning and his pO2 was 57 pCO2 was 41 and pH was 7.42. He was switched from 3 to 6 L and blood gases not improve showing a pO2 of 51 a PaCO2 of 52 and a pH of 7.34. On BiPAP at 12 and 5, the pO2 went up to 65 the pCO2 came down the 44 and the pH of 7.41. This is improved. In addition to hypoxemic respiratory failure and polysubstance abuse, the patient has a history of diabetes mellitus managed with insulin pump and possible aspiration pneumonia as well as multiple other medical problems including hypertension seizure disorder GERD liver cirrhosis peripheral neuropathy and other comorbidities. Objective - Vital Signs Vital signs: Vital Signs Temp 98.2 F 08/06/17 11:00 Pulse 93 08/06/17 11:00 Resp 18 08/06/17 11:00 BP 164/77 08/06/17 11:00 Pulse Ox 94 L 08/06/17 11:00 Intake & Output 08/05/17 08/06/17 08/06/17 18:59 06:59 18:59 Intake Total 0055.420 5636.638 84.613 Output Total 1050 1125 630 Balance 41.575 158.638 -545.387 Weight 100.4 kg Intake: IV 727.5 410 80 ACETAMINOPHEN IV (For NPO 100 ) 1,000 mg In Empty Bag 1 bag @ 400 mls/hr IVPB ONCE ONE Rx#:[id number] Dextrose 5% in Water 1, 450 000 ml @ 150 mls/hr IV . Q7H40M [facility] with Sodium Bicarb (1 Meq/ml) 150 ml Rx#:[id number] Piperacillin-Tazobactam 3 37.5 50 .375 gm In Dextrose/Water 1 50ml.bag @ 12.5 mls/hr IVPB Q12H [facility] Rx#: [id number] Sodium Chloride 0.9% 1, 240 260 80 000 ml @ 20 mls/hr IV . Q24H [facility] Rx#:[id number] Intake, IV Titration 364.075 33.638 4.613 Amount Insulin Regular 100 unit 25.875 33.638 4.613 In Sodium Chloride 0.9% 100 ml @ Per Protocol IV .Q0M [facility] Rx#:[id number] Norepinephrin 4 mg-0.9% 217.750 Ns Pmx 4 mg In 250 ml @ Titrate IV .Q0M [facility] Rx#: [id number] Propofol 1,000 mg In 120.45 Empty Bag 1 bag @ Titrate IV .Q0M [facility] Rx#: [id number] Oral 840 Output: Urine 1050 1125 630 Other: Voiding Method Indwelling Catheter Indwelling Catheter - Exam No acute distress, sleepy, BiPAP mask in place HEENT examination is grossly unremarkable. Neck supple. Full range of motion. No adenopathy thyromegaly or neck vein distention. Cardiovascular examination reveals regular rhythm rate. S1-S2 normal. No S3 or S4. No discernible murmur noted. Lungs reveal relatively clear breath sounds. A few scattered rhonchi. No wheezes or crackles. Abdomen soft bowel sounds are heard. No masses or tenderness. Extremities are intact. No cyanosis clubbing or edema. Skin is without rash or lesion. Neurologic examination is difficult to assess. - Labs CBC & Chem 7: 08/06/17 03:45 08/06/17 03:45 Labs: Abnormal Lab Results - Last 24 Hours (Table) 08/04/17 08/05/17 08/05/17 Range/Units 18:37 12:08 13:15 RBC (4.30-5.90) m/uL Hgb (13.0-17.5) gm/dL Hct (39.0-53.0) % Neutrophils # (1.3-7.7) k/uL ABG pH (7.35-7.45) ABG pCO2 (35-45) mmHg ABG pO2 (83-108) mmHg ABG HCO3 (21-25) mmol/L ABG Total CO2 (19-24) mmol/L ABG O2 Saturation (94-97) % BUN (9-20) mg/dL Creatinine (0.66-1.25) mg/dL Glucose (74-99) mg/dL POC Glucose (mg/dL) 186 H 172 H (75-99) mg/dL Hemoglobin A1c 7.9 H (4.0-6.0) % Calcium (8.4-10.2) mg/dL AST (17-59) U/L ALT (21-72) U/L Total Protein (6.3-8.2) g/dL Albumin (3.5-5.0) g/dL 08/05/17 08/05/17 08/05/17 Range/Units 14:18 15:27 16:04 RBC (4.30-5.90) m/uL Hgb (13.0-17.5) gm/dL Hct (39.0-53.0) % Neutrophils # (1.3-7.7) k/uL ABG pH (7.35-7.45) ABG pCO2 (35-45) mmHg ABG pO2 (83-108) mmHg ABG HCO3 (21-25) mmol/L ABG Total CO2 (19-24) mmol/L ABG O2 Saturation (94-97) % BUN (9-20) mg/dL Creatinine (0.66-1.25) mg/dL Glucose (74-99) mg/dL POC Glucose (mg/dL) 149 H 138 H 156 H (75-99) mg/dL Hemoglobin A1c (4.0-6.0) % Calcium (8.4-10.2) mg/dL AST (17-59) U/L ALT (21-72) U/L Total Protein (6.3-8.2) g/dL Albumin (3.5-5.0) g/dL 08/05/17 08/05/17 08/05/17 Range/Units 17:09 18:15 19:04 RBC (4.30-5.90) m/uL Hgb (13.0-17.5) gm/dL Hct (39.0-53.0) % Neutrophils # (1.3-7.7) k/uL ABG pH (7.35-7.45) ABG pCO2 (35-45) mmHg ABG pO2 (83-108) mmHg ABG HCO3 (21-25) mmol/L ABG Total CO2 (19-24) mmol/L ABG O2 Saturation (94-97) % BUN (9-20) mg/dL Creatinine (0.66-1.25) mg/dL Glucose (74-99) mg/dL POC Glucose (mg/dL) 191 H 226 H 233 H (75-99) mg/dL Hemoglobin A1c (4.0-6.0) % Calcium (8.4-10.2) mg/dL AST (17-59) U/L ALT (21-72) U/L Total Protein (6.3-8.2) g/dL Albumin (3.5-5.0) g/dL 08/05/17 08/05/17 08/05/17 Range/Units 20:44 21:58 23:22 RBC (4.30-5.90) m/uL Hgb (13.0-17.5) gm/dL Hct (39.0-53.0) % Neutrophils # (1.3-7.7) k/uL ABG pH (7.35-7.45) ABG pCO2 (35-45) mmHg ABG pO2 (83-108) mmHg ABG HCO3 (21-25) mmol/L ABG Total CO2 (19-24) mmol/L ABG O2 Saturation (94-97) % BUN (9-20) mg/dL Creatinine (0.66-1.25) mg/dL Glucose (74-99) mg/dL POC Glucose (mg/dL) 249 H 159 H 120 H (75-99) mg/dL Hemoglobin A1c (4.0-6.0) % Calcium (8.4-10.2) mg/dL AST (17-59) U/L ALT (21-72) U/L Total Protein (6.3-8.2) g/dL Albumin (3.5-5.0) g/dL 08/06/17 08/06/17 08/06/17 Range/Units 00:23 01:34 02:30 RBC (4.30-5.90) m/uL Hgb (13.0-17.5) gm/dL Hct (39.0-53.0) % Neutrophils # (1.3-7.7) k/uL ABG pH (7.35-7.45) ABG pCO2 (35-45) mmHg ABG pO2 (83-108) mmHg ABG HCO3 (21-25) mmol/L ABG Total CO2 (19-24) mmol/L ABG O2 Saturation (94-97) % BUN (9-20) mg/dL Creatinine (0.66-1.25) mg/dL Glucose (74-99) mg/dL POC Glucose (mg/dL) 157 H 187 H 174 H (75-99) mg/dL Hemoglobin A1c (4.0-6.0) % Calcium (8.4-10.2) mg/dL AST (17-59) U/L ALT (21-72) U/L Total Protein (6.3-8.2) g/dL Albumin (3.5-5.0) g/dL 08/06/17 08/06/17 08/06/17 Range/Units 03:45 03:45 03:56 RBC 3.21 L (4.30-5.90) m/uL Hgb 10.3 L (13.0-17.5) gm/dL Hct 29.7 L (39.0-53.0) % Neutrophils # 7.9 H (1.3-7.7) k/uL ABG pH (7.35-7.45) ABG pCO2 (35-45) mmHg ABG pO2 (83-108) mmHg ABG HCO3 (21-25) mmol/L ABG Total CO2 (19-24) mmol/L ABG O2 Saturation (94-97) % BUN 33 H (9-20) mg/dL Creatinine 1.30 H (0.66-1.25) mg/dL Glucose 161 H (74-99) mg/dL POC Glucose (mg/dL) 162 H (75-99) mg/dL Hemoglobin A1c (4.0-6.0) % Calcium 8.0 L (8.4-10.2) mg/dL AST 339 H (17-59) U/L ALT 462 H (21-72) U/L Total Protein 5.4 L (6.3-8.2) g/dL Albumin 3.0 L (3.5-5.0) g/dL 08/06/17 08/06/17 08/06/17 Range/Units 05:29 05:44 06:44 RBC (4.30-5.90) m/uL Hgb (13.0-17.5) gm/dL Hct (39.0-53.0) % Neutrophils # (1.3-7.7) k/uL ABG pH (7.35-7.45) ABG pCO2 (35-45) mmHg ABG pO2 57 L (83-108) mmHg ABG HCO3 27 H (21-25) mmol/L ABG Total CO2 28 H (19-24) mmol/L ABG O2 Saturation 90.2 L (94-97) % BUN (9-20) mg/dL Creatinine (0.66-1.25) mg/dL Glucose (74-99) mg/dL POC Glucose (mg/dL) 170 H 165 H (75-99) mg/dL Hemoglobin A1c (4.0-6.0) % Calcium (8.4-10.2) mg/dL AST (17-59) U/L ALT (21-72) U/L Total Protein (6.3-8.2) g/dL Albumin (3.5-5.0) g/dL 08/06/17 08/06/17 08/06/17 Range/Units 08:20 09:38 10:31 RBC (4.30-5.90) m/uL Hgb (13.0-17.5) gm/dL Hct (39.0-53.0) % Neutrophils # (1.3-7.7) k/uL ABG pH 7.34 L (7.35-7.45) ABG pCO2 52 H (35-45) mmHg ABG pO2 51 L (83-108) mmHg ABG HCO3 28 H (21-25) mmol/L ABG Total CO2 30 H (19-24) mmol/L ABG O2 Saturation 85.5 L (94-97) % BUN (9-20) mg/dL Creatinine (0.66-1.25) mg/dL Glucose (74-99) mg/dL POC Glucose (mg/dL) 152 H 173 H (75-99) mg/dL Hemoglobin A1c (4.0-6.0) % Calcium (8.4-10.2) mg/dL AST (17-59) U/L ALT (21-72) U/L Total Protein (6.3-8.2) g/dL Albumin (3.5-5.0) g/dL 08/06/17 Range/Units 11:16 RBC (4.30-5.90) m/uL Hgb (13.0-17.5) gm/dL Hct (39.0-53.0) % Neutrophils # (1.3-7.7) k/uL ABG pH (7.35-7.45) ABG pCO2 (35-45) mmHg ABG pO2 65 L (83-108) mmHg ABG HCO3 28 H (21-25) mmol/L ABG Total CO2 29 H (19-24) mmol/L ABG O2 Saturation 93.8 L (94-97) % BUN (9-20) mg/dL Creatinine (0.66-1.25) mg/dL Glucose (74-99) mg/dL POC Glucose (mg/dL) (75-99) mg/dL Hemoglobin A1c (4.0-6.0) % Calcium (8.4-10.2) mg/dL AST (17-59) U/L ALT (21-72) U/L Total Protein (6.3-8.2) g/dL Albumin (3.5-5.0) g/dL Microbiology - Last 24 Hours (Table) 08/04/17 13:04 Gram Stain - Final Sputum Sputum Culture - Final Assessment and Plan Assessment: Assessment Hypoxemic respiratory failure requiring intubation with subsequent extubation on the following day secondary to polysubstance abuse narcotics and alcohol. History of alcohol abuse History of morphine and cocaine abuse Type 1 diabetes, managed intensively with an insulin pump Possible aspiration pneumonia Essential hypertension Seizure disorder History of GERD Liver cirrhosis Peripheral neuropathy. Plan: Plan dated 08/06/2017 It appears that we have averted respiratory fire by placing the patient on BiPAP at 12 and 5. I asked the FiO2 be sent so that the patient's saturations were in the low 90s. He appears he appears to possibly be a CO2 retainer. The patient's meds labs and x-rays are reviewed. Prognosis is guarded. Obviously can't be moved out of the ICU. Additional recommendations and suggestions are forthcoming. We'll follow closely. Critical care time 36 minutes. Time with Patient: Greater than 30
[2017-08-06] MEDS: POTASSIUM CHLORIDE 10 MEQ in SODIUM CHLORIDE 0.9% 100 ML IVPB SCH ×4 (12:07→20:52)
[2017-08-06 12:17] LABS: Glucose,Whole Blood 156 mg/dL (75-99)
[2017-08-06] MEDS: PIPERACILLIN-TAZOBACTAM 3.375 GM in DEXTROSE/WATER 1 50ML.BAG IVPB SCH ×2 (12:38→17:22)
[2017-08-06 14:02] LABS: Glucose,Whole Blood 148 mg/dL (75-99)
[2017-08-06] MEDS: levETIRAcetam IV 500 MG in SODIUM CHLORIDE 0.9% 100 ML IVPB SCH ×2 (14:41→22:47)
[2017-08-06 16:12] LABS: Glucose,Whole Blood 245 mg/dL (75-99)
--- NOTE | 2017-08-06 16:38 | P.PN ---
Subjective Progress Note Date: 08/06/17 This is 51 years old male with past medical history significant for diabetes mellitus type 2, gastroesophageal reflux disease, hypertension, seizure disorder, lower extremity neuropathy, alcohol abuse and polysubstance abuse presents to the emergency department with altered mental status. According to the who is the primary caregiver and who witnessed the patient stated that yesterday they had normal evening where they had 6-1212 be her each one of them and after that day had 2 shots of vodka followed by 1 tablet of morphine 30 mg and patient went to sleep 5:00 in the morning patient was sweating and checked on his glucose as patient is diabetic type I and found him to be 70 she woke him up and he was responsive give him some juice and food after that he went back to sleep and by 6 daily patient continued to sweat was trying to wake him up but patient was unresponsive just resisting with his arms and patient called EMS where they checked his glucoses and was found to be 120 agent was brought to the emergency department with altered mental status on arrival to the ER his Ravi scale was 3 and patient was intubated for airway protection. currently saying that the patient's did not want to be on the ventilator but stated that it's okay for a few days if he is not reversible didn't that she would like to consider weaning him off the machine. Initial evaluation in the ER revealed acute kidney injury patient is well known to have kidney disease secondary to his alcohol and liver disease according to the and quit drinking hard liquor and drinking now on the beer and couple shots of vodka on a random basis. Son at the bedside also agreeing with the above information. 08/06: Patient remains in the intensive care unit. He was extubated and apparently was doing fine yesterday afternoon and evening but this morning he started having mental status changes around 5. He is been less arousable and required increased oxygen. Patient's last alcohol intake was on August 03 or August 04. There is concern the patient is going through withdrawals. Anticipate the patient will require reintubation. Objective - Vital Signs Vital signs: Vital Signs Temp 98.2 F 08/06/17 11:00 Pulse 93 08/06/17 11:00 Resp 18 08/06/17 11:00 BP 164/77 08/06/17 11:00 Pulse Ox 94 L 08/06/17 11:00 Intake & Output 08/05/17 08/06/17 08/06/17 18:59 06:59 18:59 Intake Total 2746.859 5618.638 84.613 Output Total 1050 1125 630 Balance 41.575 158.638 -545.387 Weight 100.4 kg Intake: IV 727.5 410 80 ACETAMINOPHEN IV (For NPO 100 ) 1,000 mg In Empty Bag 1 bag @ 400 mls/hr IVPB ONCE ONE Rx#:[id number] Dextrose 5% in Water 1, 450 000 ml @ 150 mls/hr IV . Q7H40M [facility] with Sodium Bicarb (1 Meq/ml) 150 ml Rx#:[id number] Piperacillin-Tazobactam 3 37.5 50 .375 gm In Dextrose/Water 1 50ml.bag @ 12.5 mls/hr IVPB Q12H [facility] Rx#: [id number] Sodium Chloride 0.9% 1, 240 260 80 000 ml @ 20 mls/hr IV . Q24H [facility] Rx#:[id number] Intake, IV Titration 364.075 33.638 4.613 Amount Insulin Regular 100 unit 25.875 33.638 4.613 In Sodium Chloride 0.9% 100 ml @ Per Protocol IV .Q0M [facility] Rx#:[id number] Norepinephrin 4 mg-0.9% 217.750 Ns Pmx 4 mg In 250 ml @ Titrate IV .Q0M [facility] Rx#: [id number] Propofol 1,000 mg In 120.45 Empty Bag 1 bag @ Titrate IV .Q0M [facility] Rx#: [id number] Oral 840 Output: Urine 1050 1125 630 Other: Voiding Method Indwelling Catheter Indwelling Catheter - Constitutional General appearance: Present: disheveled, mild distress, obese - EENT Eyes: Present: anicteric sclerae, normal appearance - Neck Neck: Present: normal ROM. Absent: rigidity, stridor - Respiratory Respiratory: bilateral: rhonchi, negative: wheezing - Cardiovascular Heart sounds: normal: S1, S2 Abnormal Heart Sounds: Absent: systolic murmur, diastolic murmur - Gastrointestinal General gastrointestinal: Present: normal bowel sounds, soft. Absent: organomegaly, tenderness - Musculoskeletal Musculoskeletal: Absent: gait normal, generalized weakness, strength equal bilaterally, right sided weakness, left sided weakness - Psychiatric Psychiatric: Absent: A&O x's 3, appropriate affect, intact judgment & insight - Labs CBC & Chem 7: 08/06/17 03:45 08/06/17 03:45 Labs: Abnormal Lab Results - Last 24 Hours (Table) 08/04/17 08/05/17 08/05/17 Range/Units 18:37 12:08 13:15 RBC (4.30-5.90) m/uL Hgb (13.0-17.5) gm/dL Hct (39.0-53.0) % Neutrophils # (1.3-7.7) k/uL ABG pH (7.35-7.45) ABG pCO2 (35-45) mmHg ABG pO2 (83-108) mmHg ABG HCO3 (21-25) mmol/L ABG Total CO2 (19-24) mmol/L ABG O2 Saturation (94-97) % BUN (9-20) mg/dL Creatinine (0.66-1.25) mg/dL Glucose (74-99) mg/dL POC Glucose (mg/dL) 186 H 172 H (75-99) mg/dL Hemoglobin A1c 7.9 H (4.0-6.0) % Calcium (8.4-10.2) mg/dL AST (17-59) U/L ALT (21-72) U/L Total Protein (6.3-8.2) g/dL Albumin (3.5-5.0) g/dL 08/05/17 08/05/17 08/05/17 Range/Units 14:18 15:27 16:04 RBC (4.30-5.90) m/uL Hgb (13.0-17.5) gm/dL Hct (39.0-53.0) % Neutrophils # (1.3-7.7) k/uL ABG pH (7.35-7.45) ABG pCO2 (35-45) mmHg ABG pO2 (83-108) mmHg ABG HCO3 (21-25) mmol/L ABG Total CO2 (19-24) mmol/L ABG O2 Saturation (94-97) % BUN (9-20) mg/dL Creatinine (0.66-1.25) mg/dL Glucose (74-99) mg/dL POC Glucose (mg/dL) 149 H 138 H 156 H (75-99) mg/dL Hemoglobin A1c (4.0-6.0) % Calcium (8.4-10.2) mg/dL AST (17-59) U/L ALT (21-72) U/L Total Protein (6.3-8.2) g/dL Albumin (3.5-5.0) g/dL 08/05/17 08/05/17 08/05/17 Range/Units 17:09 18:15 19:04 RBC (4.30-5.90) m/uL Hgb (13.0-17.5) gm/dL Hct (39.0-53.0) % Neutrophils # (1.3-7.7) k/uL ABG pH (7.35-7.45) ABG pCO2 (35-45) mmHg ABG pO2 (83-108) mmHg ABG HCO3 (21-25) mmol/L ABG Total CO2 (19-24) mmol/L ABG O2 Saturation (94-97) % BUN (9-20) mg/dL Creatinine (0.66-1.25) mg/dL Glucose (74-99) mg/dL POC Glucose (mg/dL) 191 H 226 H 233 H (75-99) mg/dL Hemoglobin A1c (4.0-6.0) % Calcium (8.4-10.2) mg/dL AST (17-59) U/L ALT (21-72) U/L Total Protein (6.3-8.2) g/dL Albumin (3.5-5.0) g/dL 08/05/17 08/05/17 08/05/17 Range/Units 20:44 21:58 23:22 RBC (4.30-5.90) m/uL Hgb (13.0-17.5) gm/dL Hct (39.0-53.0) % Neutrophils # (1.3-7.7) k/uL ABG pH (7.35-7.45) ABG pCO2 (35-45) mmHg ABG pO2 (83-108) mmHg ABG HCO3 (21-25) mmol/L ABG Total CO2 (19-24) mmol/L ABG O2 Saturation (94-97) % BUN (9-20) mg/dL Creatinine (0.66-1.25) mg/dL Glucose (74-99) mg/dL POC Glucose (mg/dL) 249 H 159 H 120 H (75-99) mg/dL Hemoglobin A1c (4.0-6.0) % Calcium (8.4-10.2) mg/dL AST (17-59) U/L ALT (21-72) U/L Total Protein (6.3-8.2) g/dL Albumin (3.5-5.0) g/dL 08/06/17 08/06/17 08/06/17 Range/Units 00:23 01:34 02:30 RBC (4.30-5.90) m/uL Hgb (13.0-17.5) gm/dL Hct (39.0-53.0) % Neutrophils # (1.3-7.7) k/uL ABG pH (7.35-7.45) ABG pCO2 (35-45) mmHg ABG pO2 (83-108) mmHg ABG HCO3 (21-25) mmol/L ABG Total CO2 (19-24) mmol/L ABG O2 Saturation (94-97) % BUN (9-20) mg/dL Creatinine (0.66-1.25) mg/dL Glucose (74-99) mg/dL POC Glucose (mg/dL) 157 H 187 H 174 H (75-99) mg/dL Hemoglobin A1c (4.0-6.0) % Calcium (8.4-10.2) mg/dL AST (17-59) U/L ALT (21-72) U/L Total Protein (6.3-8.2) g/dL Albumin (3.5-5.0) g/dL 08/06/17 08/06/17 08/06/17 Range/Units 03:45 03:45 03:56 RBC 3.21 L (4.30-5.90) m/uL Hgb 10.3 L (13.0-17.5) gm/dL Hct 29.7 L (39.0-53.0) % Neutrophils # 7.9 H (1.3-7.7) k/uL ABG pH (7.35-7.45) ABG pCO2 (35-45) mmHg ABG pO2 (83-108) mmHg ABG HCO3 (21-25) mmol/L ABG Total CO2 (19-24) mmol/L ABG O2 Saturation (94-97) % BUN 33 H (9-20) mg/dL Creatinine 1.30 H (0.66-1.25) mg/dL Glucose 161 H (74-99) mg/dL POC Glucose (mg/dL) 162 H (75-99) mg/dL Hemoglobin A1c (4.0-6.0) % Calcium 8.0 L (8.4-10.2) mg/dL AST 339 H (17-59) U/L ALT 462 H (21-72) U/L Total Protein 5.4 L (6.3-8.2) g/dL Albumin 3.0 L (3.5-5.0) g/dL 08/06/17 08/06/17 08/06/17 Range/Units 05:29 05:44 06:44 RBC (4.30-5.90) m/uL Hgb (13.0-17.5) gm/dL Hct (39.0-53.0) % Neutrophils # (1.3-7.7) k/uL ABG pH (7.35-7.45) ABG pCO2 (35-45) mmHg ABG pO2 57 L (83-108) mmHg ABG HCO3 27 H (21-25) mmol/L ABG Total CO2 28 H (19-24) mmol/L ABG O2 Saturation 90.2 L (94-97) % BUN (9-20) mg/dL Creatinine (0.66-1.25) mg/dL Glucose (74-99) mg/dL POC Glucose (mg/dL) 170 H 165 H (75-99) mg/dL Hemoglobin A1c (4.0-6.0) % Calcium (8.4-10.2) mg/dL AST (17-59) U/L ALT (21-72) U/L Total Protein (6.3-8.2) g/dL Albumin (3.5-5.0) g/dL 08/06/17 08/06/17 08/06/17 Range/Units 08:20 09:38 10:31 RBC (4.30-5.90) m/uL Hgb (13.0-17.5) gm/dL Hct (39.0-53.0) % Neutrophils # (1.3-7.7) k/uL ABG pH 7.34 L (7.35-7.45) ABG pCO2 52 H (35-45) mmHg ABG pO2 51 L (83-108) mmHg ABG HCO3 28 H (21-25) mmol/L ABG Total CO2 30 H (19-24) mmol/L ABG O2 Saturation 85.5 L (94-97) % BUN (9-20) mg/dL Creatinine (0.66-1.25) mg/dL Glucose (74-99) mg/dL POC Glucose (mg/dL) 152 H 173 H (75-99) mg/dL Hemoglobin A1c (4.0-6.0) % Calcium (8.4-10.2) mg/dL AST (17-59) U/L ALT (21-72) U/L Total Protein (6.3-8.2) g/dL Albumin (3.5-5.0) g/dL 08/06/17 Range/Units 11:16 RBC (4.30-5.90) m/uL Hgb (13.0-17.5) gm/dL Hct (39.0-53.0) % Neutrophils # (1.3-7.7) k/uL ABG pH (7.35-7.45) ABG pCO2 (35-45) mmHg ABG pO2 65 L (83-108) mmHg ABG HCO3 28 H (21-25) mmol/L ABG Total CO2 29 H (19-24) mmol/L ABG O2 Saturation 93.8 L (94-97) % BUN (9-20) mg/dL Creatinine (0.66-1.25) mg/dL Glucose (74-99) mg/dL POC Glucose (mg/dL) (75-99) mg/dL Hemoglobin A1c (4.0-6.0) % Calcium (8.4-10.2) mg/dL AST (17-59) U/L ALT (21-72) U/L Total Protein (6.3-8.2) g/dL Albumin (3.5-5.0) g/dL Microbiology - Last 24 Hours (Table) 08/04/17 13:04 Gram Stain - Final Sputum Sputum Culture - Final Assessment and Plan Plan: 1. Acute hypoxic respiratory failure requiring intubation and mechanical ventilation, subsequently extubated but requiring BiPAP secondary to polysubstance abuse including narcotics and alcohol. Patient is managed in the intensive care unit by Dr. Hernandez. Continue DuoNeb treatments. Patient is on Zosyn for possible aspiration pneumonia. 2. Acute metabolic encephalopathy secondary to #1. Consult with Dr. Kenney. 3. Polysubstance abuse with narcotics and alcohol. Concern for patient going through withdrawals. Continue thiamine. 4. Diabetes mellitus type 1 usually on insulin pump. Patient is on insulin drip. 5. Acute kidney injury with chronic kidney disease stage III. Avoid nephrotoxic agents and hypotension. 6. History of liver cirrhosis secondary to alcohol abuse. 7. Generalized anxiety disorder and recurrent depression. Patient is normally on Paxil and Xanax at home. These are on hold. 8. Seizure disorder. Oral Keppra changed to IV. 9. History of hypertension. Norvasc and lisinopril on hold. 10. Gastroesophageal reflux disease and GI prophylaxis. Protonix. 11. DVT prophylaxis. Discharge plan: To be determined Impression and plan of care have been directed as dictated by the signing physician. Elizabeth Spicer nurse practitioner acting as scribe for signing physician.
[2017-08-06] MEDS ORDERED: Potassium Replacement Protocol 1 EACH MISC MISCELLANE PRN (17:05)
[2017-08-06 17:31] LABS: Glucose,Whole Blood 150 mg/dL (75-99)
[2017-08-06] MEDS: THIAMINE 100 MG TAB PO SCH (17:44)
[2017-08-06] MEDS: SODIUM CHLORIDE 0.9% 1,000 ML IV SCH (18:50)
[2017-08-06 18:57] LABS: Glucose,Whole Blood 123 mg/dL (75-99)
[2017-08-06 20:24] LABS: Glucose,Whole Blood 220 mg/dL (75-99)
[2017-08-06 21:07] LABS: Glucose,Whole Blood 198 mg/dL (75-99)
[2017-08-06 22:04] LABS: Glucose,Whole Blood 163 mg/dL (75-99)
--- NOTE | 2017-08-06 22:50 | CT ---
EXAMINATION TYPE: CT brain wo con DATE OF EXAM: 08/06/2017 COMPARISON: 08/04/2017 HISTORY: Confusion CT DLP: 1121 mGycm Automated exposure control for dose reduction was used. FINDINGS: Ventricles have normal size. There is no mass effect nor midline shift. There is no sign of intracran ial hemorrhage. There is atrophy of the anterior right temporal lobe. Calvarium is intact. IMPRESSION: RIGHT TEMPORAL LOBE ATROPHY OR OLD INFARCT. NO ACUTE INTRACRANIAL ABNORMALITY. NO CHANGE.
[2017-08-06 23:09] LABS: Glucose,Whole Blood 178 mg/dL (75-99)
[2017-08-06 23:56] LABS: Glucose,Whole Blood 144 mg/dL (75-99)
[2017-08-07 01:29] LABS: Glucose,Whole Blood 152 mg/dL (75-99)
[2017-08-07] MEDS: PIPERACILLIN-TAZOBACTAM 3.375 GM in DEXTROSE/WATER 1 50ML.BAG IVPB SCH ×3 (01:48→17:21)
[2017-08-07 02:21] LABS: Glucose,Whole Blood 142 mg/dL (75-99)
[2017-08-07 03:19] LABS: Glucose,Whole Blood 157 mg/dL (75-99)
[2017-08-07 04:17] LABS: Glucose,Whole Blood 162 mg/dL (75-99)
[2017-08-07 04:28] LABS: Basophils % (A) 0 %; Eosinophils # (A) 0.1 k/uL (0-0.7); Eosinophils % (A) 2 %; HCT 30.2 % (39.0-53.0); HGB 10.4 gm/dL (13.0-17.5); Lymphocytes # (A) 1.2 k/uL (1.0-4.8); Lymphocytes % (A) 16 %; MCH 31.9 pg (25.0-35.0); MCHC 34.3 g/dL (31.0-37.0); MCV 92.8 fL (80.0-100.0); Mean Platelet Volume 7.7; Monocytes # (A) 0.4 k/uL (0-1.0); Monocytes % (A) 6 %; Neutrophils # (A) 5.8 k/uL (1.3-7.7); Neutrophils % (A) 75 %; Platelet Count 226 k/uL (150-450); RBC 3.26 m/uL (4.30-5.90); WBC 7.7 k/uL (3.8-10.6)
[2017-08-07 04:36] LABS: ALT 298 U/L (21-72); AST 141 U/L (17-59); Alkaline Phosphatase 90 U/L (38-126); Anion Gap 10 mmol/L; Blood Urea Nitrogen 19 mg/dL (9-20); Calcium 8.6 mg/dL (8.4-10.2); Carbon Dioxide 26 mmol/L (22-30); Chloride 105 mmol/L (98-107); Glucose 143 mg/dL (74-99); Magnesium 1.7 mg/dL (1.6-2.3); Phosphorus 2.2 mg/dL (2.5-4.5); Potassium 3.8 mmol/L (3.5-5.1); Sodium 141 mmol/L (137-145); Total Bilirubin 0.6 mg/dL (0.2-1.3); Total Protein 5.5 g/dL (6.3-8.2)
[2017-08-07] MEDS ORDERED: Magnesium Replacement Protocol 1 EACH MISC MISCELLANE PRN (05:06)
[2017-08-07] MEDS ORDERED: Potassium Replacement Protocol 1 EACH MISC MISCELLANE PRN ×2 (05:06→14:02)
[2017-08-07 05:29] LABS: Glucose,Whole Blood 175 mg/dL (75-99)
--- NOTE | 2017-08-07 05:51 | CONS ---
CONSULTATION DATE OF CONSULTATION: 08/06/2017. CHIEF COMPLAINT: Altered mental status. HISTORY OF PRESENT ILLNESS: The patient is a pleasant 51-year-old, male, who was being evaluated by the neurology service per the request of Dr. Matias for altered mental status. The patient was brought into [facility] Emergency Room on 08/04/2017 with the chief complaint of respiratory distress and altered mental status. A stat CT scan of the brain was done which showed no acute intracranial abnormalities. The patient does have history of alcohol abuse according to the chart along with polysubstance abuse. His urine drug screen on admission was positive for cocaine and opiates. The patient's respiratory status worsened and he was intubated. His laboratory workup showed anemia with a hemoglobin of 10.3 and hematocrit of 29%. His comprehensive metabolic profile showed renal insufficiency with a BUN of 33 and creatinine of 1.3, hyperglycemia at 162, hypokalemia at 3.4, hypocalcemia at 8.0, and significantly elevated liver enzymes with an AST of 339, and ALT of 462. The patient was admitted to the intensive care unit for further workup and management. He was later weaned off sedation and extubated but the patient remained confused. A neurology consultation was obtained for that reason. At the time of my evaluation, the patient is much more awake and oriented. He is still requiring a BiPAP for his respiratory distress. The patient denies any lateralizing weakness or numbness. He does complain of low back pain which is chronic for him. He is being treated for a suspected aspiration pneumonia. He is currently on IV antibiotics and bronchodilators. PAST MEDICAL HISTORY: Diabetes, chronic pain syndrome, gastroesophageal reflux disease, hypertension, neuropathy, seizure disorder, depression, hypertension, history of polysubstance abuse. SOCIAL HISTORY: The patient is a current every day smoker. He does have history of chronic alcohol abuse. He denies any drug use, but his urine drug screen was abnormal as mentioned above. FAMILY HISTORY: Positive for diabetes and Crohn disease. HOME MEDICATIONS: Reviewed in the chart. ALLERGIES: No known drug allergies. REVIEW OF SYSTEM: Unable to obtain due to respiratory distress. PHYSICAL EXAM: Vital signs show a temperature of 100.3, pulse 107, respiration 24, blood pressure 165/76. GENERAL APPEARANCE: The patient is a well developed, male who appears to be in mild respiratory distress. HEENT: Normocephalic, atraumatic, BiPAP mask is intact, no obvious facial asymmetry is seen, extraocular muscles are intact. NECK: Supple with no masses felt. CARDIOVASCULAR: Regular rate and rhythm. ABDOMEN: Nontender nondistended. EXTREMITIES: Showed trace edema with no clubbing seen. NEUROLOGICAL EXAM: The patient is alert aware and oriented x3. Speech is difficult to assess due to BiPAP mask. Language testing is normal. He does move all 4 extremities to command with no lateralizing weakness is seen. Sensory exam was normal to light touch in all 4 extremities. No tremors or seizure-like activity is seen. No obvious facial asymmetry is noticed on cranial nerve testing. IMPRESSION: 1. Altered mental status, improved. 2. Multifactorial acute encephalopathy. 3. Respiratory distress/hypoxia. 4. Aspiration pneumonia. 5. Hepatic insufficiency. 6. Drug abuse. 7. Renal insufficiency. 8. Chronic pain syndrome. RECOMMENDATION: The patient's altered mental status appears to be improving as he is more awake and he is oriented on my examination and follows all commands appropriately. His altered mental status is likely multifactorial given his drug abuse, hypoxia, and likely aspiration pneumonia. He is still requiring BiPAP for airway protection. I did review his CT scan of the brain which showed no acute abnormalities. A repeat CT scan of the brain is scheduled for [facility]. I will order an EEG. His liver enzymes were quite elevated but the ratio was not consistent with his alcohol abuse history. I do recommend further workup for his hepatic insufficiency. I will order a serum ammonia level. The patient was counseled on drug cessation and tobacco cessation. Continue neuro checks. I will continue to follow with you. Further recommendations to follow. Thank you for allowing me to participate in the care of your patient. If you have any questions, please feel free to contact me. MMODL / IJN: [id number] /
[2017-08-07] MEDS: MAGNESIUM SULFATE-D5W PMX 1 GM in DEXTROSE/WATER 1 100ML.BAG IVPB SCH ×2 (06:21→08:08)
[2017-08-07 06:24] LABS: Glucose,Whole Blood 131 mg/dL (75-99)
--- NOTE | 2017-08-07 06:29 | CONS ---
CONSULTATION DATE OF CONSULTATION: 08/06/2017. MMODL / IJN: [id number] / MTDD
[2017-08-07 07:58] LABS: Glucose,Whole Blood 182 mg/dL (75-99)
[2017-08-07] MEDS: INSULIN REGULAR 100 UNIT in SODIUM CHLORIDE 0.9% 100 ML IV SCH (08:02)
--- NOTE | 2017-08-07 08:05 | XR ---
EXAMINATION TYPE: XR chest 1V portable DATE OF EXAM: 08/07/2017 COMPARISON: Prior chest x-ray 08/05/2017 HISTORY: Extubated, abnormal chest x-ray TECHNIQUE: Single frontal view of the chest is obtained. FINDINGS: There is been interval removal of endotracheal and NG tube. There are overlying cardiac le ads and the patient is rotated. Cardiomediastinal silhouette, pulmonary vascularity and estelle are not significantly changed. No pneumothorax or sizable effusion. There is improved aeration at the left alan ng base. Some perihilar vascular indistinctness is present, there may be some vague groundglass opaci ty present. IMPRESSION: Interval extubation. There may be a component of edema although there is improved aerati on at the left lung base.
[2017-08-07] MEDS: POTASSIUM CHLORIDE 10 MEQ in SODIUM CHLORIDE 0.9% 100 ML IVPB SCH ×7 (08:07→12:29)
--- NOTE | 2017-08-07 09:10 | P.PN ---
Subjective Progress Note Date: 08/07/17 This is 51 years old male with past medical history significant for diabetes mellitus type 2, gastroesophageal reflux disease, hypertension, seizure disorder, lower extremity neuropathy, alcohol abuse and polysubstance abuse presents to the emergency department with altered mental status. According to the who is the primary caregiver and who witnessed the patient stated that yesterday they had normal evening where they had 6-1212 be her each one of them and after that day had 2 shots of vodka followed by 1 tablet of morphine 30 mg and patient went to sleep 5:00 in the morning patient was sweating and checked on his glucose as patient is diabetic type I and found him to be 70 she woke him up and he was responsive give him some juice and food after that he went back to sleep and by 6 daily patient continued to sweat was trying to wake him up but patient was unresponsive just resisting with his arms and patient called EMS where they checked his glucoses and was found to be 120 agent was brought to the emergency department with altered mental status on arrival to the ER his Ravi scale was 3 and patient was intubated for airway protection. currently saying that the patient's did not want to be on the ventilator but stated that it's okay for a few days if he is not reversible didn't that she would like to consider weaning him off the machine. Initial evaluation in the ER revealed acute kidney injury patient is well known to have kidney disease secondary to his alcohol and liver disease according to the and quit drinking hard liquor and drinking now on the beer and couple shots of vodka on a random basis. Son at the bedside also agreeing with the above information. 08/06: Patient remains in the intensive care unit. He was extubated and apparently was doing fine yesterday afternoon and evening but this morning he started having mental status changes around 5. He is been less arousable and required increased oxygen. Patient's last alcohol intake was on August 03 or August 04. There is concern the patient is going through withdrawals. Anticipate the patient will require reintubation. 08/07: Patient is more alert today. He denies remembering what brought him into the hospital. His did tell him yesterday it was related to narcotic pills and alcohol. Patient will be resumed back on some of his home medications including blood pressure meds. Patient does state that he may have been diagnosed with sleep apnea in the past but does not use the machine. He cannot recall the name of his pulmonary doctor. He does follow with Dr. Tariq endocrinology regarding his diabetes. Patient was on BiPAP for the past 18 hours. Diet will be started. Patient will have his bring in his insulin pump supplies and resume back on pump today. Objective - Vital Signs Vital signs: Vital Signs Temp 98.3 F 08/07/17 04:00 Pulse 87 08/07/17 07:00 Resp 23 08/07/17 07:00 BP 172/79 08/07/17 07:00 Pulse Ox 100 08/07/17 07:00 Intake & Output 08/06/17 08/07/17 08/07/17 18:59 06:59 18:59 Intake Total 740.056 610.005 20 Output Total 2330 1700 120 Balance -1589.944 -1089.995 -100 Weight 98.4 kg Intake: IV 220 590 20 Magnesium Sulfate-D5w Pmx 100 1 gm In Dextrose/Water 1 100ml.bag @ 100 mls/hr IVPB Q1H [facility] Rx#: [id number] Piperacillin-Tazobactam 3 50 .375 gm In Dextrose/Water 1 50ml.bag @ 12.5 mls/hr IVPB Q12H [facility] Rx#: [id number] Potassium Chloride 10 meq 100 In Sodium Chloride 0.9% 100 ml @ 100 mls/hr IVPB Q1H [facility] Rx#:[id number] Sodium Chloride 0.9% 1, 220 240 20 000 ml @ 20 mls/hr IV . Q24H [facility] Rx#:[id number] levETIRAcetam IV 500 mg 100 In Sodium Chloride 0.9% 100 ml @ 400 mls/hr IVPB Q12HR [facility] Rx#:[id number] Intake, IV Titration 520.056 20.005 0 Amount Insulin Regular 100 unit 20.056 20.005 0 In Sodium Chloride 0.9% 100 ml @ Per Protocol IV .Q0M [facility] Rx#:[id number] Piperacillin-Tazobactam 3 50 .375 gm In Dextrose/Water 1 50ml.bag @ 12.5 mls/hr IVPB Q12H [facility] Rx#: [id number] Piperacillin-Tazobactam 3 50 .375 gm In Dextrose/Water 1 50ml.bag @ 12.5 mls/hr IVPB Q8HR [facility] Rx#: [id number] Potassium Chloride 10 meq 200 In Sodium Chloride 0.9% 100 ml @ 100 mls/hr IVPB Q1H [facility] Rx#:[id number] Potassium Chloride 10 meq 100 In Sodium Chloride 0.9% 100 ml @ 100 mls/hr IVPB Q1H [facility] Rx#:[id number] levETIRAcetam IV 500 mg 100 In Sodium Chloride 0.9% 100 ml @ 400 mls/hr IVPB Q12HR [facility] Rx#:[id number] Output: Urine 2330 1700 120 Other: Voiding Method Indwelling Catheter Indwelling Catheter - Constitutional General appearance: Present: disheveled, obese - EENT Eyes: Present: PERRLA, normal appearance - Neck Neck: Present: normal ROM. Absent: rigidity - Respiratory Respiratory: bilateral: CTA, negative: wheezing - Cardiovascular Rhythm: regular Heart sounds: normal: S1, S2 - Gastrointestinal General gastrointestinal: Present: normal bowel sounds, soft. Absent: distended , organomegaly, splenomegaly, tenderness - Integumentary Integumentary: Present: normal turgor - Neurologic Neurologic: Present: CNII-XII intact. Absent: focal deficits - Musculoskeletal Musculoskeletal: Absent: right sided weakness, left sided weakness - Psychiatric Psychiatric: Present: A&O x's 3, appropriate affect, intact judgment & insight - Labs CBC & Chem 7: 08/07/17 03:30 08/07/17 03:30 Labs: Abnormal Lab Results - Last 24 Hours (Table) 08/06/17 08/06/17 08/06/17 Range/Units 09:38 10:31 11:16 RBC (4.30-5.90) m/uL Hgb (13.0-17.5) gm/dL Hct (39.0-53.0) % ABG pH 7.34 L (7.35-7.45) ABG pCO2 52 H (35-45) mmHg ABG pO2 51 L 65 L (83-108) mmHg ABG HCO3 28 H 28 H (21-25) mmol/L ABG Total CO2 30 H 29 H (19-24) mmol/L ABG O2 Saturation 85.5 L 93.8 L (94-97) % Glucose (74-99) mg/dL POC Glucose (mg/dL) 173 H (75-99) mg/dL Phosphorus (2.5-4.5) mg/dL AST (17-59) U/L ALT (21-72) U/L Total Protein (6.3-8.2) g/dL Albumin (3.5-5.0) g/dL 08/06/17 08/06/17 08/06/17 Range/Units 12:16 14:00 16:10 RBC (4.30-5.90) m/uL Hgb (13.0-17.5) gm/dL Hct (39.0-53.0) % ABG pH (7.35-7.45) ABG pCO2 (35-45) mmHg ABG pO2 (83-108) mmHg ABG HCO3 (21-25) mmol/L ABG Total CO2 (19-24) mmol/L ABG O2 Saturation (94-97) % Glucose (74-99) mg/dL POC Glucose (mg/dL) 156 H 148 H 245 H (75-99) mg/dL Phosphorus (2.5-4.5) mg/dL AST (17-59) U/L ALT (21-72) U/L Total Protein (6.3-8.2) g/dL Albumin (3.5-5.0) g/dL 08/06/17 08/06/17 08/06/17 Range/Units 17:29 18:55 20:19 RBC (4.30-5.90) m/uL Hgb (13.0-17.5) gm/dL Hct (39.0-53.0) % ABG pH (7.35-7.45) ABG pCO2 (35-45) mmHg ABG pO2 (83-108) mmHg ABG HCO3 (21-25) mmol/L ABG Total CO2 (19-24) mmol/L ABG O2 Saturation (94-97) % Glucose (74-99) mg/dL POC Glucose (mg/dL) 150 H 123 H 220 H (75-99) mg/dL Phosphorus (2.5-4.5) mg/dL AST (17-59) U/L ALT (21-72) U/L Total Protein (6.3-8.2) g/dL Albumin (3.5-5.0) g/dL 08/06/17 08/06/17 08/06/17 Range/Units 21:05 22:03 23:07 RBC (4.30-5.90) m/uL Hgb (13.0-17.5) gm/dL Hct (39.0-53.0) % ABG pH (7.35-7.45) ABG pCO2 (35-45) mmHg ABG pO2 (83-108) mmHg ABG HCO3 (21-25) mmol/L ABG Total CO2 (19-24) mmol/L ABG O2 Saturation (94-97) % Glucose (74-99) mg/dL POC Glucose (mg/dL) 198 H 163 H 178 H (75-99) mg/dL Phosphorus (2.5-4.5) mg/dL AST (17-59) U/L ALT (21-72) U/L Total Protein (6.3-8.2) g/dL Albumin (3.5-5.0) g/dL 08/06/17 08/07/17 08/07/17 Range/Units 23:54 01:28 02:19 RBC (4.30-5.90) m/uL Hgb (13.0-17.5) gm/dL Hct (39.0-53.0) % ABG pH (7.35-7.45) ABG pCO2 (35-45) mmHg ABG pO2 (83-108) mmHg ABG HCO3 (21-25) mmol/L ABG Total CO2 (19-24) mmol/L ABG O2 Saturation (94-97) % Glucose (74-99) mg/dL POC Glucose (mg/dL) 144 H 152 H 142 H (75-99) mg/dL Phosphorus (2.5-4.5) mg/dL AST (17-59) U/L ALT (21-72) U/L Total Protein (6.3-8.2) g/dL Albumin (3.5-5.0) g/dL 08/07/17 08/07/17 08/07/17 Range/Units 03:17 03:30 03:30 RBC 3.26 L (4.30-5.90) m/uL Hgb 10.4 L (13.0-17.5) gm/dL Hct 30.2 L (39.0-53.0) % ABG pH (7.35-7.45) ABG pCO2 (35-45) mmHg ABG pO2 (83-108) mmHg ABG HCO3 (21-25) mmol/L ABG Total CO2 (19-24) mmol/L ABG O2 Saturation (94-97) % Glucose 143 H (74-99) mg/dL POC Glucose (mg/dL) 157 H (75-99) mg/dL Phosphorus 2.2 L (2.5-4.5) mg/dL AST 141 H (17-59) U/L ALT 298 H (21-72) U/L Total Protein 5.5 L (6.3-8.2) g/dL Albumin 3.0 L (3.5-5.0) g/dL 08/07/17 08/07/17 08/07/17 Range/Units 04:10 05:26 06:22 RBC (4.30-5.90) m/uL Hgb (13.0-17.5) gm/dL Hct (39.0-53.0) % ABG pH (7.35-7.45) ABG pCO2 (35-45) mmHg ABG pO2 (83-108) mmHg ABG HCO3 (21-25) mmol/L ABG Total CO2 (19-24) mmol/L ABG O2 Saturation (94-97) % Glucose (74-99) mg/dL POC Glucose (mg/dL) 162 H 175 H 131 H (75-99) mg/dL Phosphorus (2.5-4.5) mg/dL AST (17-59) U/L ALT (21-72) U/L Total Protein (6.3-8.2) g/dL Albumin (3.5-5.0) g/dL 08/07/17 Range/Units 07:57 RBC (4.30-5.90) m/uL Hgb (13.0-17.5) gm/dL Hct (39.0-53.0) % ABG pH (7.35-7.45) ABG pCO2 (35-45) mmHg ABG pO2 (83-108) mmHg ABG HCO3 (21-25) mmol/L ABG Total CO2 (19-24) mmol/L ABG O2 Saturation (94-97) % Glucose (74-99) mg/dL POC Glucose (mg/dL) 182 H (75-99) mg/dL Phosphorus (2.5-4.5) mg/dL AST (17-59) U/L ALT (21-72) U/L Total Protein (6.3-8.2) g/dL Albumin (3.5-5.0) g/dL Microbiology - Last 24 Hours (Table) 08/06/17 18:45 Urine Culture - Preliminary Urine,Catheterized 08/04/17 13:04 Gram Stain - Final Sputum Sputum Culture - Final Assessment and Plan Plan: 1. Acute hypoxic respiratory failure requiring intubation and mechanical ventilation, subsequently extubated but requiring BiPAP secondary to polysubstance abuse including narcotics and alcohol. Patient is managed in the intensive care unit by Dr. Hernandez. Continue DuoNeb treatments. Patient is on Zosyn for possible aspiration pneumonia. 2. Acute metabolic encephalopathy secondary to #1. Consult with Dr. Kenney. 3. Polysubstance abuse with narcotics and alcohol. Concern for patient going through withdrawals. Continue thiamine. 4. Diabetes mellitus type 1 usually on insulin pump. Patient is on insulin drip. 5. Acute kidney injury with chronic kidney disease stage III. Avoid nephrotoxic agents and hypotension. 6. History of liver cirrhosis secondary to alcohol abuse. 7. Generalized anxiety disorder and recurrent depression. Patient is normally on Paxil and Xanax at home. Xanax on hold. Paxil resumed. 8. Seizure disorder. Oral Keppra. 9. History of hypertension. Norvasc and lisinopril resumed. 10. Gastroesophageal reflux disease and GI prophylaxis. Protonix. 11. DVT prophylaxis. Discharge plan: To be determined. PT ordered. Impression and plan of care have been directed as dictated by the signing physician. Elizabeth Spicer nurse practitioner acting as scribe for signing physician.
--- NOTE | 2017-08-07 09:46 | P.PN ---
Subjective Progress Note Date: 08/07/17 Principal diagnosis: Acute respiratory failure alcohol abuse and cocaine abuse morphine abuse Progress note dated 08/06/2017 This is a 51-year-old male with a history of alcohol abuse/polysubstance abuse who presented to the emergency room with status changes. The patient went on to develop respiratory failure and was intubated on August 04. He was extubated yesterday on August 05. Currently the patient's on O2 6 L saline IV at 20 mL an hour and insulin drip at 1 unit an hour. We did blood gases this morning and his pO2 was 57 pCO2 was 41 and pH was 7.42. He was switched from 3 to 6 L and blood gases not improve showing a pO2 of 51 a PaCO2 of 52 and a pH of 7.34. On BiPAP at 12 and 5, the pO2 went up to 65 the pCO2 came down the 44 and the pH of 7.41. This is improved. In addition to hypoxemic respiratory failure and polysubstance abuse, the patient has a history of diabetes mellitus managed with insulin pump and possible aspiration pneumonia as well as multiple other medical problems including hypertension seizure disorder GERD liver cirrhosis peripheral neuropathy and other comorbidities. Progress note dated 08/07/2017 This is a 51-year-old male with a history of alcohol abuse and polysubstance abuse. He apparently presented initially to the emergency room on August 04 with mental status changes. He went on to develop respiratory failure and was intubated on August 04. He was extubated 2 days ago on August 05. Yesterday because of concerns of ongoing and worsening respiratory status, he was placed on BiPAP with IPAP of 12 and EPAP of 5. FiO2 is 40%. That seemed to be able to prevent the reintubation. Currently, the BiPAP was removed and he is on 2 L nasal cannula. He still very lethargic and sleepy. His IV is saline at KVO. He is on an insulin drip at 3 units per hour. In addition to the above, he has a history of diabetes mellitus aspiration pneumonia hypertension seizure disorder GERD liver cirrhosis peripheral neuropathy and other comorbidities. A blood gas was not done this morning. I told the nurse that he can come off of the BiPAP for short periods of time. He probably will continue need the BiPAP on and off. Hopefully, he'll not need to be reintubated. Objective - Vital Signs Vital signs: Vital Signs Temp 98.3 F 08/07/17 04:00 Pulse 87 08/07/17 07:00 Resp 23 08/07/17 07:00 BP 172/79 08/07/17 07:00 Pulse Ox 100 08/07/17 07:00 Intake & Output 08/06/17 08/07/17 08/07/17 18:59 06:59 18:59 Intake Total 740.056 610.005 20 Output Total 2330 1700 120 Balance -1589.944 -1089.995 -100 Weight 98.4 kg Intake: IV 220 590 20 Magnesium Sulfate-D5w Pmx 100 1 gm In Dextrose/Water 1 100ml.bag @ 100 mls/hr IVPB Q1H [facility] Rx#: [id number] Piperacillin-Tazobactam 3 50 .375 gm In Dextrose/Water 1 50ml.bag @ 12.5 mls/hr IVPB Q12H [facility] Rx#: [id number] Potassium Chloride 10 meq 100 In Sodium Chloride 0.9% 100 ml @ 100 mls/hr IVPB Q1H [facility] Rx#:[id number] Sodium Chloride 0.9% 1, 220 240 20 000 ml @ 20 mls/hr IV . Q24H [facility] Rx#:[id number] levETIRAcetam IV 500 mg 100 In Sodium Chloride 0.9% 100 ml @ 400 mls/hr IVPB Q12HR [facility] Rx#:[id number] Intake, IV Titration 520.056 20.005 0 Amount Insulin Regular 100 unit 20.056 20.005 0 In Sodium Chloride 0.9% 100 ml @ Per Protocol IV .Q0M [facility] Rx#:[id number] Piperacillin-Tazobactam 3 50 .375 gm In Dextrose/Water 1 50ml.bag @ 12.5 mls/hr IVPB Q12H [facility] Rx#: [id number] Piperacillin-Tazobactam 3 50 .375 gm In Dextrose/Water 1 50ml.bag @ 12.5 mls/hr IVPB Q8HR [facility] Rx#: [id number] Potassium Chloride 10 meq 200 In Sodium Chloride 0.9% 100 ml @ 100 mls/hr IVPB Q1H [facility] Rx#:[id number] Potassium Chloride 10 meq 100 In Sodium Chloride 0.9% 100 ml @ 100 mls/hr IVPB Q1H [facility] Rx#:[id number] levETIRAcetam IV 500 mg 100 In Sodium Chloride 0.9% 100 ml @ 400 mls/hr IVPB Q12HR [facility] Rx#:[id number] Output: Urine 2330 1700 120 Other: Voiding Method Indwelling Catheter Indwelling Catheter - Exam No acute distress, sleepy, currently the patient's on nasal O2 2-3 L per minute. HEENT examination is grossly unremarkable. Neck supple. Full range of motion. No adenopathy thyromegaly or neck vein distention. Cardiovascular examination reveals regular rhythm rate. S1-S2 normal. No S3 or S4. No discernible murmur noted. Lungs reveal relatively clear breath sounds. A few scattered rhonchi. No wheezes. The patient does have bibasilar crackles. Abdomen soft bowel sounds are heard. No masses or tenderness. Extremities are intact. No cyanosis clubbing or edema. Skin is without rash or lesion. Neurologic examination is difficult to assess. - Labs CBC & Chem 7: 08/07/17 03:30 08/07/17 03:30 Labs: Abnormal Lab Results - Last 24 Hours (Table) 08/06/17 08/06/17 08/06/17 Range/Units 09:38 10:31 11:16 RBC (4.30-5.90) m/uL Hgb (13.0-17.5) gm/dL Hct (39.0-53.0) % ABG pH 7.34 L (7.35-7.45) ABG pCO2 52 H (35-45) mmHg ABG pO2 51 L 65 L (83-108) mmHg ABG HCO3 28 H 28 H (21-25) mmol/L ABG Total CO2 30 H 29 H (19-24) mmol/L ABG O2 Saturation 85.5 L 93.8 L (94-97) % Glucose (74-99) mg/dL POC Glucose (mg/dL) 173 H (75-99) mg/dL Phosphorus (2.5-4.5) mg/dL AST (17-59) U/L ALT (21-72) U/L Total Protein (6.3-8.2) g/dL Albumin (3.5-5.0) g/dL 08/06/17 08/06/17 08/06/17 Range/Units 12:16 14:00 16:10 RBC (4.30-5.90) m/uL Hgb (13.0-17.5) gm/dL Hct (39.0-53.0) % ABG pH (7.35-7.45) ABG pCO2 (35-45) mmHg ABG pO2 (83-108) mmHg ABG HCO3 (21-25) mmol/L ABG Total CO2 (19-24) mmol/L ABG O2 Saturation (94-97) % Glucose (74-99) mg/dL POC Glucose (mg/dL) 156 H 148 H 245 H (75-99) mg/dL Phosphorus (2.5-4.5) mg/dL AST (17-59) U/L ALT (21-72) U/L Total Protein (6.3-8.2) g/dL Albumin (3.5-5.0) g/dL 08/06/17 08/06/17 08/06/17 Range/Units 17:29 18:55 20:19 RBC (4.30-5.90) m/uL Hgb (13.0-17.5) gm/dL Hct (39.0-53.0) % ABG pH (7.35-7.45) ABG pCO2 (35-45) mmHg ABG pO2 (83-108) mmHg ABG HCO3 (21-25) mmol/L ABG Total CO2 (19-24) mmol/L ABG O2 Saturation (94-97) % Glucose (74-99) mg/dL POC Glucose (mg/dL) 150 H 123 H 220 H (75-99) mg/dL Phosphorus (2.5-4.5) mg/dL AST (17-59) U/L ALT (21-72) U/L Total Protein (6.3-8.2) g/dL Albumin (3.5-5.0) g/dL 08/06/17 08/06/17 08/06/17 Range/Units 21:05 22:03 23:07 RBC (4.30-5.90) m/uL Hgb (13.0-17.5) gm/dL Hct (39.0-53.0) % ABG pH (7.35-7.45) ABG pCO2 (35-45) mmHg ABG pO2 (83-108) mmHg ABG HCO3 (21-25) mmol/L ABG Total CO2 (19-24) mmol/L ABG O2 Saturation (94-97) % Glucose (74-99) mg/dL POC Glucose (mg/dL) 198 H 163 H 178 H (75-99) mg/dL Phosphorus (2.5-4.5) mg/dL AST (17-59) U/L ALT (21-72) U/L Total Protein (6.3-8.2) g/dL Albumin (3.5-5.0) g/dL 08/06/17 08/07/17 08/07/17 Range/Units 23:54 01:28 02:19 RBC (4.30-5.90) m/uL Hgb (13.0-17.5) gm/dL Hct (39.0-53.0) % ABG pH (7.35-7.45) ABG pCO2 (35-45) mmHg ABG pO2 (83-108) mmHg ABG HCO3 (21-25) mmol/L ABG Total CO2 (19-24) mmol/L ABG O2 Saturation (94-97) % Glucose (74-99) mg/dL POC Glucose (mg/dL) 144 H 152 H 142 H (75-99) mg/dL Phosphorus (2.5-4.5) mg/dL AST (17-59) U/L ALT (21-72) U/L Total Protein (6.3-8.2) g/dL Albumin (3.5-5.0) g/dL 08/07/17 08/07/17 08/07/17 Range/Units 03:17 03:30 03:30 RBC 3.26 L (4.30-5.90) m/uL Hgb 10.4 L (13.0-17.5) gm/dL Hct 30.2 L (39.0-53.0) % ABG pH (7.35-7.45) ABG pCO2 (35-45) mmHg ABG pO2 (83-108) mmHg ABG HCO3 (21-25) mmol/L ABG Total CO2 (19-24) mmol/L ABG O2 Saturation (94-97) % Glucose 143 H (74-99) mg/dL POC Glucose (mg/dL) 157 H (75-99) mg/dL Phosphorus 2.2 L (2.5-4.5) mg/dL AST 141 H (17-59) U/L ALT 298 H (21-72) U/L Total Protein 5.5 L (6.3-8.2) g/dL Albumin 3.0 L (3.5-5.0) g/dL 08/07/17 08/07/17 08/07/17 Range/Units 04:10 05:26 06:22 RBC (4.30-5.90) m/uL Hgb (13.0-17.5) gm/dL Hct (39.0-53.0) % ABG pH (7.35-7.45) ABG pCO2 (35-45) mmHg ABG pO2 (83-108) mmHg ABG HCO3 (21-25) mmol/L ABG Total CO2 (19-24) mmol/L ABG O2 Saturation (94-97) % Glucose (74-99) mg/dL POC Glucose (mg/dL) 162 H 175 H 131 H (75-99) mg/dL Phosphorus (2.5-4.5) mg/dL AST (17-59) U/L ALT (21-72) U/L Total Protein (6.3-8.2) g/dL Albumin (3.5-5.0) g/dL 08/07/17 Range/Units 07:57 RBC (4.30-5.90) m/uL Hgb (13.0-17.5) gm/dL Hct (39.0-53.0) % ABG pH (7.35-7.45) ABG pCO2 (35-45) mmHg ABG pO2 (83-108) mmHg ABG HCO3 (21-25) mmol/L ABG Total CO2 (19-24) mmol/L ABG O2 Saturation (94-97) % Glucose (74-99) mg/dL POC Glucose (mg/dL) 182 H (75-99) mg/dL Phosphorus (2.5-4.5) mg/dL AST (17-59) U/L ALT (21-72) U/L Total Protein (6.3-8.2) g/dL Albumin (3.5-5.0) g/dL Microbiology - Last 24 Hours (Table) 08/06/17 18:45 Urine Culture - Preliminary Urine,Catheterized 08/04/17 13:04 Gram Stain - Final Sputum Sputum Culture - Final Assessment and Plan Assessment: Assessment Hypoxemic respiratory failure requiring intubation with subsequent extubation on the following day secondary to polysubstance abuse narcotics and alcohol. BiPAP dependent hypoxemic respiratory failure History of alcohol abuse History of morphine and cocaine abuse Type 1 diabetes, managed intensively with an insulin pump Possible aspiration pneumonia Essential hypertension Seizure disorder History of GERD Liver cirrhosis Peripheral neuropathy. Plan: Plan dated 08/06/2017 It appears that we have averted respiratory fire by placing the patient on BiPAP at 12 and 5. I asked the FiO2 be sent so that the patient's saturations were in the low 90s. He appears he appears to possibly be a CO2 retainer. The patient's meds labs and x-rays are reviewed. Prognosis is guarded. Obviously can't be moved out of the ICU. Additional recommendations and suggestions are forthcoming. We'll follow closely. Critical care time 36 minutes. Plan dated 08/07/2017 Hopefully, we have averted butch respiratory failure requiring reintubation with BiPAP therapy. We'll continue to watch the patient very carefully. I don' t believe he is able to be moved out of the ICU. We'll continue to use of BiPAP intermittently along with nasal O2. Chest x-ray shows improving picture. His overall mental status was not great. We'll continue to follow closely. Labs x-rays a medications are all reviewed. Additional recommendations and suggestions are forthcoming. Overall prognosis is poor. The right patient remains on insulin drip at 3 units an hour. Critical care time is 30 minutes Time with Patient: Greater than 30
[2017-08-07 09:55] LABS: Glucose,Whole Blood 212 mg/dL (75-99)
[2017-08-07] MEDS: levETIRAcetam 500 MG TAB PO SCH ×2 (10:19→20:20)
[2017-08-07] MEDS: LISINOPRIL 20 MG TAB PO SCH (10:19)
[2017-08-07] MEDS: amLODIPine 10 MG TAB PO SCH (10:20)
[2017-08-07 12:18] LABS: Magnesium 2.1 mg/dL (1.6-2.3); Potassium 3.6 mmol/L (3.5-5.1)
[2017-08-07 12:23] LABS: Glucose,Whole Blood 129 mg/dL (75-99)
[2017-08-07] MEDS: THIAMINE 100 MG TAB PO SCH ×2 (12:31→17:21)
[2017-08-07] MEDS: PARoxetine 10 MG TAB PO SCH (12:32)
[2017-08-07] MEDS: PANTOPRAZOLE 40 MG/10 ML VIAL IV SCH (12:33)
--- NOTE | 2017-08-07 14:51 | P.PN ---
Subjective Progress Note Date: 08/07/17 Principal diagnosis: Altered mental status This 51-year-old male continuing to be evaluated by the neurology service for altered mental status. He was brought in to the [facility] emergency room with respiratory distress. His initial CT of the brain showed no acute intracranial abnormalities. His urine drug screen was positive for cocaine and opiates. He did require intubation but is now on a respirator and on O2 via nasal cannula. Initially after he was weaned off sedation and extubated there was still some confusion. Soon after that he became much more awake and oriented. He is being treated for aspiration pneumonia and COPD. At time my exam he is resting comfortably in bed in no acute distress. No new neurological complaints or findings occurred in the last [address] of the brain showed no acute intracranial abnormalities and was unchanged from his initial CT. An EEG has been performed. Objective - Vital Signs Vital signs: Vital Signs Temp 98.2 F 08/07/17 12:00 Pulse 107 H 08/07/17 14:00 Resp 18 08/07/17 14:00 BP 140/72 08/07/17 14:00 Pulse Ox 94 L 08/07/17 14:00 Intake & Output 08/06/17 08/07/17 08/07/17 18:59 06:59 18:59 Intake Total 740.056 610.005 325.681 Output Total 2330 1700 1740 Balance -1589.944 -1089.995 -1414.319 Weight 98.4 kg Intake: IV 220 590 320 Magnesium Sulfate-D5w Pmx 100 100 1 gm In Dextrose/Water 1 100ml.bag @ 100 mls/hr IVPB Q1H [facility] Rx#: [id number] Piperacillin-Tazobactam 3 50 .375 gm In Dextrose/Water 1 50ml.bag @ 12.5 mls/hr IVPB Q12H [facility] Rx#: [id number] Potassium Chloride 10 meq 100 200 In Sodium Chloride 0.9% 100 ml @ 100 mls/hr IVPB Q1H [facility] Rx#:[id number] Sodium Chloride 0.9% 1, 220 240 20 000 ml @ 20 mls/hr IV . Q24H [facility] Rx#:[id number] levETIRAcetam IV 500 mg 100 In Sodium Chloride 0.9% 100 ml @ 400 mls/hr IVPB Q12HR [facility] Rx#:[id number] Intake, IV Titration 520.056 20.005 5.681 Amount Insulin Regular 100 unit 20.056 20.005 5.681 In Sodium Chloride 0.9% 100 ml @ Per Protocol IV .Q0M [facility] Rx#:[id number] Piperacillin-Tazobactam 3 50 .375 gm In Dextrose/Water 1 50ml.bag @ 12.5 mls/hr IVPB Q12H [facility] Rx#: [id number] Piperacillin-Tazobactam 3 50 .375 gm In Dextrose/Water 1 50ml.bag @ 12.5 mls/hr IVPB Q8HR [facility] Rx#: [id number] Potassium Chloride 10 meq 200 In Sodium Chloride 0.9% 100 ml @ 100 mls/hr IVPB Q1H [facility] Rx#:[id number] Potassium Chloride 10 meq 100 In Sodium Chloride 0.9% 100 ml @ 100 mls/hr IVPB Q1H [facility] Rx#:[id number] levETIRAcetam IV 500 mg 100 In Sodium Chloride 0.9% 100 ml @ 400 mls/hr IVPB Q12HR [facility] Rx#:[id number] Output: Urine 2330 1700 1740 Other: Voiding Method Indwelling Catheter Indwelling Catheter Indwelling Catheter - Constitutional General appearance: Present: average body habitus, cooperative, no acute distress - EENT Eyes: Present: EOMI, PERRLA. Absent: abnormal pupil, ptosis ENT: Present: hearing grossly normal - Neck Neck: Present: normal ROM. Absent: rigidity - Respiratory Respiratory: negative: prolonged expiration, prolonged inspiration - Cardiovascular Rhythm: regular - Gastrointestinal General gastrointestinal: Absent: distended, tenderness - Neurologic Neurologic Comment(s): Patient is alert awake and oriented 3. Speech and language are normal. There is no facial asymmetry. Strength is full in bilateral upper lower extremities. There is no sensory deficit. No tremors or seizure-like activities are seen. - Labs CBC & Chem 7: 08/07/17 03:30 08/07/17 11:59 Labs: Abnormal Lab Results - Last 24 Hours (Table) 08/06/17 08/06/17 08/06/17 Range/Units 16:10 17:29 18:55 RBC (4.30-5.90) m/uL Hgb (13.0-17.5) gm/dL Hct (39.0-53.0) % Glucose (74-99) mg/dL POC Glucose (mg/dL) 245 H 150 H 123 H (75-99) mg/dL Phosphorus (2.5-4.5) mg/dL AST (17-59) U/L ALT (21-72) U/L Total Protein (6.3-8.2) g/dL Albumin (3.5-5.0) g/dL 08/06/17 08/06/17 08/06/17 Range/Units 20:19 21:05 22:03 RBC (4.30-5.90) m/uL Hgb (13.0-17.5) gm/dL Hct (39.0-53.0) % Glucose (74-99) mg/dL POC Glucose (mg/dL) 220 H 198 H 163 H (75-99) mg/dL Phosphorus (2.5-4.5) mg/dL AST (17-59) U/L ALT (21-72) U/L Total Protein (6.3-8.2) g/dL Albumin (3.5-5.0) g/dL 08/06/17 08/06/17 08/07/17 Range/Units 23:07 23:54 01:28 RBC (4.30-5.90) m/uL Hgb (13.0-17.5) gm/dL Hct (39.0-53.0) % Glucose (74-99) mg/dL POC Glucose (mg/dL) 178 H 144 H 152 H (75-99) mg/dL Phosphorus (2.5-4.5) mg/dL AST (17-59) U/L ALT (21-72) U/L Total Protein (6.3-8.2) g/dL Albumin (3.5-5.0) g/dL 08/07/17 08/07/17 08/07/17 Range/Units 02:19 03:17 03:30 RBC 3.26 L (4.30-5.90) m/uL Hgb 10.4 L (13.0-17.5) gm/dL Hct 30.2 L (39.0-53.0) % Glucose (74-99) mg/dL POC Glucose (mg/dL) 142 H 157 H (75-99) mg/dL Phosphorus (2.5-4.5) mg/dL AST (17-59) U/L ALT (21-72) U/L Total Protein (6.3-8.2) g/dL Albumin (3.5-5.0) g/dL 08/07/17 08/07/17 08/07/17 Range/Units 03:30 04:10 05:26 RBC (4.30-5.90) m/uL Hgb (13.0-17.5) gm/dL Hct (39.0-53.0) % Glucose 143 H (74-99) mg/dL POC Glucose (mg/dL) 162 H 175 H (75-99) mg/dL Phosphorus 2.2 L (2.5-4.5) mg/dL AST 141 H (17-59) U/L ALT 298 H (21-72) U/L Total Protein 5.5 L (6.3-8.2) g/dL Albumin 3.0 L (3.5-5.0) g/dL 08/07/17 08/07/17 08/07/17 Range/Units 06:22 07:57 09:54 RBC (4.30-5.90) m/uL Hgb (13.0-17.5) gm/dL Hct (39.0-53.0) % Glucose (74-99) mg/dL POC Glucose (mg/dL) 131 H 182 H 212 H (75-99) mg/dL Phosphorus (2.5-4.5) mg/dL AST (17-59) U/L ALT (21-72) U/L Total Protein (6.3-8.2) g/dL Albumin (3.5-5.0) g/dL 08/07/17 Range/Units 12:18 RBC (4.30-5.90) m/uL Hgb (13.0-17.5) gm/dL Hct (39.0-53.0) % Glucose (74-99) mg/dL POC Glucose (mg/dL) 129 H (75-99) mg/dL Phosphorus (2.5-4.5) mg/dL AST (17-59) U/L ALT (21-72) U/L Total Protein (6.3-8.2) g/dL Albumin (3.5-5.0) g/dL Microbiology - Last 24 Hours (Table) 08/06/17 18:45 Urine Culture - Preliminary Urine,Catheterized Assessment and Plan (1) Encephalopathy acute Current Visit: Yes Status: Acute Code(s): G93.40 - ENCEPHALOPATHY, UNSPECIFIED SNOMED Code(s): 54140777 (2) Acute renal failure (ARF) Current Visit: Yes Status: Acute Code(s): N17.9 - ACUTE KIDNEY FAILURE, UNSPECIFIED SNOMED Code(s): 83369089 (3) Altered mental status Current Visit: Yes Status: Resolved Code(s): R41.82 - ALTERED MENTAL STATUS , UNSPECIFIED SNOMED Code(s): 822169298 (4) Respiratory failure Current Visit: Yes Status: Acute Code(s): J96.90 - RESPIRATORY FAILURE, UNSP , UNSP W HYPOXIA OR HYPERCAPNIA SNOMED Code(s): 391215025 (5) Hyponatremia Current Visit: No Status: Acute Code(s): E87.1 - HYPO-OSMOLALITY AND HYPONATREMIA SNOMED Code(s): 42426220 (6) Hypotension Current Visit: No Status: Acute Code(s): I95.9 - HYPOTENSION, UNSPECIFIED SNOMED Code(s): 52634236 (7) Diabetes mellitus Current Visit: No Status: Chronic Code(s): E11.9 - TYPE 2 DIABETES MELLITUS WITHOUT COMPLICATIONS SNOMED Code(s): 41288254 Plan: Patient's altered mental status has mostly resolved. He is a known patient to us and he is basically back to his baseline. His symptoms were due to multifactorial encephalopathy due to drug use, hypoxia, aspiration pneumonia, and the above metabolic processes. Continue the rest of your workup and treatment. Barring any serious unforeseen abnormalities on his EEG he is cleared from a neurological standpoint to follow up in outpatient setting with us. I have performed a history and physical on the above patient. I have reviewed the above note, and agree.
[2017-08-07] MEDS ORDERED: POTASSIUM CHLORIDE ER 20 MEQ TAB.ER PO SCH (15:00)
[2017-08-07 16:36] LABS: Glucose,Whole Blood 346 mg/dL (75-99)
[2017-08-07] MEDS: INSULIN DETEMIR 100 UNIT/ML 10 ML VIAL SQ SCH (16:57)
[2017-08-07] MEDS: INSULIN ASPART 100 UNIT/ML 1 ML 10 ML VIAL SQ SCH ×2 (17:22→21:19)
[2017-08-07] MEDS ORDERED: INSULIN ASPART 100 UNIT/ML 1 ML 10 ML VIAL SQ SCH (17:30)
--- NOTE | 2017-08-07 18:56 | EEG ---
ELECTROENCEPHALOGRAM REPORT DATE OF SERVICE: 08/07/2017. REASON FOR TESTING: Altered mental status and history of seizures. CURRENT ANTIEPILEPTIC MEDICATIONS: Keppra. DESCRIPTION OF THE PROCEDURE: This EEG was performed using a 21 channel digital electroencephalograph, following international 10-20 system. DESCRIPTION OF THE RECORDING: From the beginning of the tracing, and with patient's eyes closed, the background rhythm was mostly consisting of 8 Hz alpha frequency in the posterior occipital leads. No obvious asymmetry is seen. Photic stimulation was performed with no driving response seen. Significant muscle artifacts are seen. After photic stimulation. Hyperventilation was not performed. Occasional lead artifacts are seen. The patient does reach stage II of sleep during the tracing and occasional sleep spindles are seen. No epileptiform discharges were seen. More significant muscle and movement artifacts are seen near the end of the tracing. No obvious epileptiform discharges were noticed. His EKG lead showed a regular rate and rhythm. INTERPRETATION: This asleep and awake EEG can be considered within normal limits. There is no asymmetry seen. No epileptiform discharges were noticed. The absence of epileptiform discharges does not rule out the diagnosis of epilepsy, therefore clinical correlation is recommended. MMODL / IJN: [id number] /
[2017-08-07] MEDS: SODIUM CHLORIDE 0.9% 1,000 ML IV SCH (20:21)
[2017-08-07 21:08] LABS: Glucose,Whole Blood 420 mg/dL (75-99)
[2017-08-08 00:02] VITALS: RESP 18
[2017-08-08] MEDS ORDERED: LORazepam 2 MG/ML INJ IV PRN ×2 (01:00)
[2017-08-08] MEDS: PIPERACILLIN-TAZOBACTAM 3.375 GM in DEXTROSE/WATER 1 50ML.BAG IVPB SCH ×2 (01:34→08:45)
[2017-08-08 04:56] VITALS: PULSE 96
[2017-08-08] MEDS: LORazepam 2 MG/ML INJ IV PRN ×2 (05:32→09:06)
[2017-08-08 06:51] LABS: Glucose,Whole Blood 268 mg/dL (75-99)
[2017-08-08 06:57] LABS: ALT 205 U/L (21-72); AST 69 U/L (17-59); Albumin 3.2 g/dL (3.5-5.0); Alkaline Phosphatase 92 U/L (38-126); Anion Gap 10 mmol/L; Blood Urea Nitrogen 25 mg/dL (9-20); Calcium 8.8 mg/dL (8.4-10.2); Carbon Dioxide 24 mmol/L (22-30); Chloride 102 mmol/L (98-107); Glucose 261 mg/dL (74-99); Magnesium 1.7 mg/dL (1.6-2.3); Phosphorus 2.3 mg/dL (2.5-4.5); Sodium 136 mmol/L (137-145); Total Bilirubin 0.6 mg/dL (0.2-1.3); Total Protein 5.8 g/dL (6.3-8.2)
[2017-08-08] MEDS: INSULIN ASPART 100 UNIT/ML 1 ML 10 ML VIAL SQ SCH (07:01)
[2017-08-08 07:19] LABS: Basophils % (A) 0 %; Eosinophils # (A) 0.2 k/uL (0-0.7); Eosinophils % (A) 4 %; HCT 30.2 % (39.0-53.0); HGB 9.9 gm/dL (13.0-17.5); Lymphocytes # (A) 1.3 k/uL (1.0-4.8); Lymphocytes % (A) 25 %; MCH 31.5 pg (25.0-35.0); MCHC 32.9 g/dL (31.0-37.0); MCV 95.7 fL (80.0-100.0); Mean Platelet Volume 7.7; Monocytes # (A) 0.4 k/uL (0-1.0); Monocytes % (A) 8 %; Neutrophils # (A) 2.9 k/uL (1.3-7.7); Neutrophils % (A) 59 %; Platelet Count 212 k/uL (150-450); RBC 3.15 m/uL (4.30-5.90); RDW 13.1 % (11.5-15.5)
[2017-08-08] MEDS ORDERED: PANTOPRAZOLE 40 MG TABLET PO SCH (07:30)
[2017-08-08] MEDS ORDERED: INSULIN ASPART 100 UNIT/ML 1 ML 10 ML VIAL SQ SCH (07:30)
[2017-08-08] MEDS: INSULIN DETEMIR 100 UNIT/ML 10 ML VIAL SQ SCH (08:47)
[2017-08-08] MEDS: THIAMINE 100 MG TAB PO SCH (08:48)
[2017-08-08] MEDS: PARoxetine 10 MG TAB PO SCH (08:49)
[2017-08-08] MEDS: levETIRAcetam 500 MG TAB PO SCH (08:49)
[2017-08-08] MEDS: amLODIPine 10 MG TAB PO SCH (08:49)
[2017-08-08 10:48] VITALS: BP 145/76; TEMP 96.9
[2017-08-08] MEDS: LISINOPRIL 20 MG TAB PO SCH (12:36)
--- NOTE | 2017-08-08 13:41 | P.DS ---
Providers Date of admission: 08/04/17 15:07 Expected date of discharge: 08/08/17 Attending physician: Rico Matias Consults: 08/04/17 15:07 Consult Physician Stat Consulting Provider: Alix Grewal Consult Reason/Comments: critical care Do you want consulting provider notified?: Already Contacted 08/06/17 10:54 Consult Physician Routine Consulting Provider: Liya Kenney Consult Reason/Comments: Mental status change Do you want consulting provider notified?: Yes Primary care physician: [facility] Course: This is 51 years old male with past medical history significant for diabetes mellitus type 2, gastroesophageal reflux disease, hypertension, seizure disorder, lower extremity neuropathy, alcohol abuse and polysubstance abuse presents to the emergency department with altered mental status. According to the who is the primary caregiver and who witnessed the patient stated that yesterday they had normal evening where they had 6-1212 be her each one of them and after that day had 2 shots of vodka followed by 1 tablet of morphine 30 mg and patient went to sleep 5:00 in the morning patient was sweating and checked on his glucose as patient is diabetic type I and found him to be 70 she woke him up and he was responsive give him some juice and food after that he went back to sleep and by 6 daily patient continued to sweat was trying to wake him up but patient was unresponsive just resisting with his arms and patient called EMS where they checked his glucoses and was found to be 120 agent was brought to the emergency department with altered mental status on arrival to the ER his Ravi scale was 3 and patient was intubated for airway protection. currently saying that the patient's did not want to be on the ventilator but stated that it's okay for a few days if he is not reversible didn't that she would like to consider weaning him off the machine. Initial evaluation in the ER revealed acute kidney injury patient is well known to have kidney disease secondary to his alcohol and liver disease according to the and quit drinking hard liquor and drinking now on the beer and couple shots of vodka on a random basis. Son at the bedside also agreeing with the above information. 08/06: Patient remains in the intensive care unit. He was extubated and apparently was doing fine yesterday afternoon and evening but this morning he started having mental status changes around 5. He is been less arousable and required increased oxygen. Patient's last alcohol intake was on August 03 or August 04. There is concern the patient is going through withdrawals. Anticipate the patient will require reintubation. 08/07: Patient is more alert today. He denies remembering what brought him into the hospital. His did tell him yesterday it was related to narcotic pills and alcohol. Patient will be resumed back on some of his home medications including blood pressure meds. Patient does state that he may have been diagnosed with sleep apnea in the past but does not use the machine. He cannot recall the name of his pulmonary doctor. He does follow with Dr. Tariq endocrinology regarding his diabetes. Patient was on BiPAP for the past 18 hours. Diet will be started. Patient will have his bring in his insulin pump supplies and resume back on pump today. 08/08: Patient has been followed by neurology during his stay. He has been cleared for follow-up in the outpatient setting. EEG is within normal limits. Last evening, patient was quite agitated. He denies sweats or nausea. He is very impulsive. He has been insistent that he is going home. Patient has refused help for alcohol rehab. He see what 78. He did receive Ativan this morning. Patient is able to answer questions regarding president, year, date, place. Patient was able sit to stand at the bedside with no dizziness even with closing his eyes. He ambulated to the doorway and back. Patient is very adamant this morning that he is going home. No Librium given as patient is expected to go home and drink although he is evasive about this. He states he just wants to go home and rest. Patient's to arrive and demanded to the nursing staff that patient could not be discharged home as she could not handle him. She then left the hospital prior to her return to the room. However, patient's parents are at the bedside and discharge plan was discussed with them in detail and they understand the current circumstances and will take him home. They are concerned that his will not be happy when the patient returns home. Note that we had planned for patient to stay another day but he is adamant about going home today. Discharge diagnoses: 1. Acute hypoxic respiratory failure requiring intubation and mechanical ventilation, subsequently extubated secondary to polysubstance abuse including narcotics and alcohol. 2. Acute metabolic encephalopathy secondary to #1. 3. Polysubstance abuse with narcotics and alcohol. 4. Diabetes mellitus type 1 usually on insulin pump. 5. Acute kidney injury with chronic kidney disease stage III. 6. History of liver cirrhosis secondary to alcohol abuse. 7. Generalized anxiety disorder and recurrent depression. 8. Seizure disorder. 9. History of hypertension. 10. Gastroesophageal reflux disease and GI prophylaxis. Discharge plan: Home Impression and plan of care have been directed as dictated by the signing physician. Elizabeth Spicer nurse practitioner acting as scribe for signing physician. Patient Condition at Discharge: Good Plan - Discharge Summary Discharge Rx Participant: No New Discharge Prescriptions: New Folic Acid 1 mg PO DAILY #30 tablet metroNIDAZOLE [Flagyl] 500 mg PO TID #9 tab Thiamine [Vitamin B-1] 100 mg PO BID@1200,1700 #60 tab Continue Omeprazole [PriLOSEC] 20 mg PO DAILY Insulin Aspart [NovoLOG (formulary)] 90 units SQ DAILY ALPRAZolam [Xanax] 0.5 mg PO DAILY PRN PRN Reason: Anxiety PARoxetine HCL [Paxil] 30 mg PO DAILY levETIRAcetam [Keppra] 500 mg PO BID Lisinopril [Zestril] 20 mg PO DAILY Ergocalciferol [Vitamin D2 (DRISDOL)] 50,000 unit PO Q7D amLODIPine BESYLATE [Norvasc] 10 mg PO DAILY Discharge Medication List Omeprazole [PriLOSEC] 20 mg PO DAILY 01/17/14 [History] Insulin Aspart [NovoLOG (formulary)] 90 units SQ DAILY 02/09/14 [History] ALPRAZolam [Xanax] 0.5 mg PO DAILY PRN 04/23/15 [History] PARoxetine HCL [Paxil] 30 mg PO DAILY 07/18/16 [History] Ergocalciferol [Vitamin D2 (DRISDOL)] 50,000 unit PO Q7D 08/04/17 [History] Lisinopril [Zestril] 20 mg PO DAILY 08/04/17 [History] amLODIPine BESYLATE [Norvasc] 10 mg PO DAILY 08/04/17 [History] levETIRAcetam [Keppra] 500 mg PO BID 03/17/18 [History] Folic Acid 1 mg PO DAILY #30 tablet 08/08/17 [Rx] Thiamine [Vitamin B-1] 100 mg PO BID@1200,1700 #60 tab 08/08/17 [Rx] metroNIDAZOLE [Flagyl] 500 mg PO TID #9 tab 08/08/17 [Rx] Follow up Appointment(s)/Referral(s): Anthony Quezada MD [Primary Care Provider] - 08/13/17 3:00 pm (Sunday with Renzo) Patient Instructions/Handouts: Abuse of Alcohol (DC), Altered Mental Status ( GEN)
[2017-08-11] MEDS ORDERED: ERGOCALCIFEROL 50,000 UNIT CAP PO SCH (12:00)
== END 2017-08-08 13:20 | disposition home or self-care (01) | DRG 917 ==
LOC: EC 12:33 → 6ICU 15:07 → 6SEL 08-07 15:02
PROVIDERS: ADMIT Internal Medicine; ATTEND Internal Medicine
PROC: 5A1935Z Respiratory Ventilation, Less than 24 Consecutive Hours (ICD-10-PCS; principal; 2017-08-04)
PROC: 0BH18EZ Insertion of Endotracheal Airway into Trachea, Via Natural or Artificial Opening Endoscopic (ICD-10-PCS; principal; 2017-08-04)
DX: T40.2X1A Poisoning by other opioids, accidental (unintentional), initial encounter (principal); J96.01 Acute respiratory failure with hypoxia; J69.0 Pneumonitis due to inhalation of food and vomit; G93.41 Metabolic encephalopathy; E87.1 Hypo-osmolality and hyponatremia; F33.9 Major depressive disorder, recurrent, unspecified; I13.0 Hypertensive heart and chronic kidney disease with heart failure and stage 1 through stage 4 chronic kidney disease, or unspecified chronic kidney disease; J98.11 Atelectasis; N17.9 Acute kidney failure, unspecified; T51.0X1A Toxic effect of ethanol, accidental (unintentional), initial encounter; D64.9 Anemia, unspecified; E10.22 Type 1 diabetes mellitus with diabetic chronic kidney disease; E10.41 Type 1 diabetes mellitus with diabetic mononeuropathy; E10.42 Type 1 diabetes mellitus with diabetic polyneuropathy; E10.65 Type 1 diabetes mellitus with hyperglycemia; E83.51 Hypocalcemia; E87.6 Hypokalemia; F10.10 Alcohol abuse, uncomplicated; T40.5X1A Poisoning by cocaine, accidental (unintentional), initial encounter; F11.10 Opioid abuse, uncomplicated; F14.10 Cocaine abuse, uncomplicated; F17.200 Nicotine dependence, unspecified, uncomplicated; F41.1 Generalized anxiety disorder; G40.909 Epilepsy, unspecified, not intractable, without status epilepticus; G47.30 Sleep apnea, unspecified; G89.4 Chronic pain syndrome; I50.9 Heart failure, unspecified; J32.0 Chronic maxillary sinusitis; J44.9 Chronic obstructive pulmonary disease, unspecified; K21.9 Gastro-esophageal reflux disease without esophagitis; K70.30 Alcoholic cirrhosis of liver without ascites; N18.3 Chronic kidney disease, stage 3 (moderate); Z79.4 Long term (current) use of insulin; Z79.899 Other long term (current) drug therapy; Z83.3 Family history of diabetes mellitus; Z96.41 Presence of insulin pump (external) (internal)
CPT/HCPCS: 36415; 36600; 70450; 71045; 80053; 80306; 80320; 81003; 82140; 82550; 82553; 82805; 83036; 83735; 83880; 84100; 84132; 84484; 85025; 85610; 85730; 87040; 87070; 87086; 87205; 87324; 93005; 94002; 94003; 94640; 94660; 95819

== ENCOUNTER → 2017-10-10 | Outpatient (CLI) | payer BC ==
[2017-10-10 11:13] LABS: HGB 12.7 gm/dL (13.0-17.5); MCHC 33.5 g/dL (31.0-37.0); MCV 95.5 fL (80.0-100.0); Mean Platelet Volume 6.5; Platelet Count 347 k/uL (150-450); RBC 3.97 m/uL (4.30-5.90); RDW 13.6 % (11.5-15.5); WBC 4.2 k/uL (3.8-10.6)
[2017-10-10 11:14] LABS: Appearance,Urine Clear (Clear); Bilirubin,Urine Negative (Negative); Blood,Urine Negative (Negative); Color,Urine Light Yellow; Glucose,Urine (UA) 4+ (Negative); Ketones,Urine Negative (Negative); Leukocyte Esterase,Urine Negative (Negative); Nitrite,Urine Negative (Negative); Protein,Urine Negative (Negative); Urobilinogen,Urine <2.0 mg/dL (<2.0)
[2017-10-10 11:26] LABS: Calcium 9.5 mg/dL (8.4-10.2); Magnesium 1.7 mg/dL (1.6-2.3); Phosphorus 3.9 mg/dL (2.5-4.5); Potassium 5.2 mmol/L (3.5-5.1); Uric Acid 5.1 mg/dL (3.5-8.5)
[2017-10-10 12:00] LABS: Creatinine,Urine Random 40.8 mg/dL
[2017-10-10 16:14] LABS: Vitamin D 25 Hydroxy 17.7 ng/mL (30.0-100.0)
[2017-10-10 16:16] LABS: Iron Saturation 40.66 (15.00-50.00)
[2017-10-10 17:25] LABS: Anti-DNA, DS unit <1.0 IU/mL; DNA Double-Stranded NEGATIVE (NEGATIVE)
[2017-10-10 19:05] LABS: Hemoglobin A1C 7.7 % (4.0-6.0)
[2017-10-11 14:30] LABS: C-ANCA <1:20 Titer (<1:20); P-ANCA <1:20 Titer (<1:20)
== END | disposition home or self-care (01) ==
LOC: LABWHC1 10:24
PROVIDERS: ATTEND Nurse Practitioner Family
DX: N18.3 Chronic kidney disease, stage 3 (moderate) (principal); D63.1 Anemia in chronic kidney disease; E10.22 Type 1 diabetes mellitus with diabetic chronic kidney disease; R80.9 Proteinuria, unspecified; N25.81 Secondary hyperparathyroidism of renal origin; E55.9 Vitamin D deficiency, unspecified; N39.0 Urinary tract infection, site not specified; M10.9 Gout, unspecified
CPT/HCPCS: 36415; 80048; 81003; 81050; 82306; 82570; 82728; 83036; 83516; 83540; 83550; 83735; 83883; 83970; 84100; 84156; 84166; 84550; 85027; 86038; 86160; 86162; 86225; 86255; 86334

== ENCOUNTER → 2017-11-12 | Outpatient (CLI) | payer BC ==
[2017-11-12 10:41] LABS: Basophils # (A) 0.1 k/uL (0-0.2); Basophils % (A) 1 %; Eosinophils # (A) 0.2 k/uL (0-0.7); Eosinophils % (A) 4 %; HCT 43.1 % (39.0-53.0); HGB 14.3 gm/dL (13.0-17.5); Lymphocytes # (A) 1.8 k/uL (1.0-4.8); Lymphocytes % (A) 34 %; MCH 31.6 pg (25.0-35.0); MCHC 33.1 g/dL (31.0-37.0); MCV 95.6 fL (80.0-100.0); Mean Platelet Volume 6.4; Monocytes # (A) 0.4 k/uL (0-1.0); Monocytes % (A) 8 %; Neutrophils # (A) 2.8 k/uL (1.3-7.7); Neutrophils % (A) 52 %; Platelet Count 361 k/uL (150-450); RBC 4.51 m/uL (4.30-5.90); RDW 14.1 % (11.5-15.5); WBC 5.5 k/uL (3.8-10.6)
[2017-11-12 10:55] LABS: Albumin 4.3 g/dL (3.5-5.0); Calcium 9.8 mg/dL (8.4-10.2); Potassium 4.8 mmol/L (3.5-5.1); Total Bilirubin 0.4 mg/dL (0.2-1.3); Total Protein 7.3 g/dL (6.3-8.2)
[2017-11-12 17:59] LABS: Hemoglobin A1C 8.1 % (4.0-6.0)
== END | disposition home or self-care (01) ==
LOC: LABWHC1 10:10
DX: E10.40 Type 1 diabetes mellitus with diabetic neuropathy, unspecified (principal); E78.5 Hyperlipidemia, unspecified
CPT/HCPCS: 36415; 80053; 80061; 83036; 85025

== ENCOUNTER → 2018-03-11 | Outpatient (CLI) | payer BC ==
[2018-03-11 12:47] LABS: HCT 35.9 % (39.0-53.0); HGB 11.6 gm/dL (13.0-17.5); MCH 31.6 pg (25.0-35.0); MCHC 32.4 g/dL (31.0-37.0); MCV 97.6 fL (80.0-100.0); Mean Platelet Volume 7.3; Platelet Count 387 k/uL (150-450); RBC 3.68 m/uL (4.30-5.90); RDW 12.7 % (11.5-15.5); WBC 9.9 k/uL (3.8-10.6)
[2018-03-11 12:59] LABS: Albumin 3.5 g/dL (3.5-5.0); Calcium 9.3 mg/dL (8.4-10.2); Magnesium 1.6 mg/dL (1.6-2.3); Phosphorus 3.3 mg/dL (2.5-4.5); Potassium 4.9 mmol/L (3.5-5.1); Total Bilirubin 0.5 mg/dL (0.2-1.3); Total Protein 6.9 g/dL (6.3-8.2); Uric Acid 5.3 mg/dL (3.5-8.5)
[2018-03-11 13:36] LABS: Appearance,Urine Clear (Clear); Bilirubin,Urine Negative (Negative); Blood,Urine Negative (Negative); Color,Urine Yellow; Glucose,Urine (UA) 3+ (Negative); Ketones,Urine Negative (Negative); Leukocyte Esterase,Urine Negative (Negative); Nitrite,Urine Negative (Negative); Protein,Urine Trace (Negative); Specific Gravity,Urine 1.013 (1.001-1.035); Urobilinogen,Urine <2.0 mg/dL (<2.0)
[2018-03-11 18:28] LABS: Iron Saturation 5.47 (15.00-50.00); Vitamin D 25 Hydroxy 14.7 ng/mL (30.0-100.0)
== END | disposition home or self-care (01) ==
LOC: LABWHC1 11:03
PROVIDERS: ATTEND Internal Medicine Nephrology
DX: N18.3 Chronic kidney disease, stage 3 (moderate) (principal); D63.1 Anemia in chronic kidney disease; R80.9 Proteinuria, unspecified; E55.9 Vitamin D deficiency, unspecified; E21.3 Hyperparathyroidism, unspecified
CPT/HCPCS: 36415; 80053; 81003; 82043; 82306; 82570; 82728; 83540; 83550; 83735; 83970; 84100; 84550; 85027

== ENCOUNTER → 2018-05-09 | Outpatient (CLI) | payer BC ==
--- NOTE | 2018-05-10 10:53 | ECHOF ---
Referral Reason:R60.0 Craig extremity edema,I73.9 Periph artery dz MEASUREMENTS -------- HEIGHT: 162.6 cm WEIGHT: 95.3 kg BP: RVIDd: 3.0 cm (< 3.3) IVSd: 1.2 cm (0.6 - 1.1) LVIDd: 4.5 cm (3.9 - 5.3) LVPWd: 1.3 cm (0.6 - 1.1) IVSs: 1.1 cm LVIDs: 3.9 cm LVPWs: 1.4 cm LA Diam: 3.1 cm (2.7 - 3.8) LAESV Index (A-L): 17.78 ml/m Ao Diam: 3.4 cm (2.0 - 3.7) AV Cusp: 1.8 cm (1.5 - 2.6) LA Diam: 3.5 cm (2.7 - 3.8) MV EXCURSION: 19.783 mm (> 18.000) MV EF SLOPE: 68 mm/s (70 - 150) EPSS: 0.2 cm MV E Michael: 0.97 m/s MV DecT: 225 ms MV A Michael: 0.91 m/s MV E/A Ratio: 1.07 RAP: 5.00 mmHg RVSP: 24.22 mmHg FINDINGS -------- Sinus rhythm. This was a technically adequate study. The left ventricular size is normal. There is mild concentric left ventricular hypertrophy. Overa ll left ventricular systolic function is normal with, an EF between 55 - 60 %. The right ventricle is normal in size. The left atrial size is normal. The right atrial size is normal. There is mild aortic valve sclerosis. There is no evidence of aortic regurgitation. Mild mitral annular calcification present. Mild mitral regurgitation is present. Mild tricuspid regurgitation present. There is no evidence of pulmonary hypertension. The right v entricular systolic pressure, as measured by Doppler, is 24.22mmHg. There is no pulmonic regurgitation present. Echo free space represents a pericardial fat pad. CONCLUSIONS -------- 1. The left ventricular size is normal. 2. There is mild concentric left ventricular hypertrophy. 3. Overall left ventricular systolic function is normal with, an EF between 55 - 60 %. 4. The right ventricle is normal in size. 5. The left atrial size is normal. 6. The right atrial size is normal. 7. There is mild aortic valve sclerosis. 8. Mild mitral annular calcification present. 9. Mild mitral regurgitation is present. 10. Mild tricuspid regurgitation present. 11. There is no evidence of pulmonary hypertension. 12. The right ventricular systolic pressure, as measured by Doppler, is 24.22mmHg. 13. There is no pulmonic regurgitation present. 14. Echo free space represents a pericardial fat pad. H[employer] PROJECT MANAGER: Shaina Curiel RDCS
== END | disposition home or self-care (01) ==
LOC: RADECHMAIN 13:22
PROVIDERS: ATTEND Internal Medicine
DX: I08.1 Rheumatic disorders of both mitral and tricuspid valves (principal); E65 Localized adiposity
CPT/HCPCS: 93306

== ENCOUNTER → 2018-09-12 | Outpatient (CLI) | payer BC ==
[2018-09-12 20:00] LABS: Albumin 4.6 g/dL (3.80-4.90); Albumin/Globulin Ratio 1.77 (1.60-3.17); Anion Gap 10.5 mmol/L (4.00-12.00); Calcium 9.5 mg/dL (8.7-10.3); Carbon Dioxide 25.5 mmol/L (21.6-31.8); Globulin 2.6 g/dL (1.6-3.3); LDL Cholesterol,Calculated 79.8 mg/dL (0.0-131.0); Potassium 4.4 mmol/L (3.5-5.5); Total Bilirubin 0.4 mg/dL (0.3-1.2); Total Protein 7.2 g/dL (6.2-8.2); VLDL Calculation 13.2 mg/dL (5.00-40.00)
[2018-09-12 21:10] LABS: Hemoglobin A1C 11.6 % (4.0-6.0)
== END | disposition home or self-care (01) ==
LOC: LABWHC1 12:14
DX: E10.40 Type 1 diabetes mellitus with diabetic neuropathy, unspecified (principal)
CPT/HCPCS: 36415; 80053; 80061; 83036

== ENCOUNTER → 2019-02-24 | Outpatient (CLI) | payer BC ==
[2019-02-24 08:48] LABS: HCT 37.7 % (39.0-53.0); HGB 11.7 gm/dL (13.0-17.5); MCH 32.7 pg (25.0-35.0); MCV 105.4 fL (80.0-100.0); Macrocytosis Moderate; Mean Platelet Volume 6.8; Platelet Count 344 k/uL (150-450); RBC 3.58 m/uL (4.30-5.90); RDW 13.6 % (11.5-15.5)
[2019-02-24 08:59] LABS: Appearance,Urine Clear (Clear); Bilirubin,Urine Negative (Negative); Blood,Urine Negative (Negative); Color,Urine Light Yellow; Glucose,Urine (UA) 4+ (Negative); Ketones,Urine Negative (Negative); Leukocyte Esterase,Urine Negative (Negative); Nitrite,Urine Negative (Negative); Protein,Urine Negative (Negative); Urobilinogen,Urine <2.0 mg/dL (<2.0)
[2019-02-24 19:45] LABS: Iron Saturation 19.17 (15.00-50.00)
[2019-02-24 19:54] LABS: Ferritin 70.7 ng/mL (22.0-322.0); Vitamin D 25 Hydroxy 11.4 ng/mL (30.0-100.0)
[2019-02-24 20:49] LABS: African American GFR (CKD) 52.6 (60.0-200.0); Anion Gap 8.8 mmol/L (4.00-12.00); BUN/Creat Ratio 16.47 Ratio (12.00-20.00); Calcium 9.3 mg/dL (8.7-10.3); Carbon Dioxide 25.2 mmol/L (21.6-31.8); Magnesium 1.8 mg/dL (1.5-2.4); Non-African American GFR(CKD) 45.4 (60.0-200.0); Potassium 4.9 mmol/L (3.5-5.5); Total Protein 6.8 g/dL (6.2-8.2)
[2019-02-24 20:50] LABS: Albumin 4.3 g/dL (3.80-4.90); Albumin/Globulin Ratio 1.72 (1.60-3.17); Globulin 2.5 g/dL (1.6-3.3); Phosphorus 3.7 mg/dL (2.4-5.1); Total Bilirubin 0.2 mg/dL (0.3-1.2)
[2019-02-24 22:36] LABS: Urine Creatinine 80.1 mg/dL
== END | disposition home or self-care (01) ==
LOC: LABWHC1 08:10
PROVIDERS: ATTEND Internal Medicine
DX: N18.3 Chronic kidney disease, stage 3 (moderate) (principal)
CPT/HCPCS: 36415; 80053; 81003; 82043; 82306; 82570; 82728; 83540; 83550; 83735; 83970; 84100; 84550; 85027

== ENCOUNTER → 2020-08-31 | Outpatient (CLI) | payer OTHER ==
--- NOTE | 2020-08-31 12:03 | XR ---
EXAM TYPE: LUMBAR SPINE X RAY SERIES COMPARISON: 12/10/2014 HISTORY: Pain TECHNIQUE: 4 views are submitted. FINDINGS: Alignment is anatomic. The pedicles are intact. The transverse processes are intact. There is no s pondylolysis or spondylolisthesis. Severe degenerative disc disease at the thoracolumbar junction. F acet arthropathy L4-5 and L5-S1. Atherosclerotic changes aorta. IMPRESSION: 1. Severe degenerative disc disease thoracolumbar junction. 2. Facet arthropathy lower lumbar spine..
== END | disposition home or self-care (01) ==
LOC: RADXRMAIN 10:23
PROVIDERS: ATTEND Family Medicine
DX: M51.36 Other intervertebral disc degeneration, lumbar region (principal); M47.816 Spondylosis without myelopathy or radiculopathy, lumbar region
CPT/HCPCS: 72110

== ENCOUNTER 2021-10-20 17:13 | Inpatient (IN) | payer OTHER ==
[2021-10-20] MEDS ORDERED: SODIUM CHLORIDE 0.9% 1,000 ML IV STA (17:54)
[2021-10-20 18:02] LABS: Basophils % (A) 0 %; Eosinophils % (A) 0 %; HCT 34.8 % (39.0-53.0); HGB 11.7 gm/dL (13.0-17.5); Lymphocytes # (A) 0.3 k/uL (1.0-4.8); Lymphocytes % (A) 3 %; MCH 33.2 pg (25.0-35.0); MCHC 33.7 g/dL (31.0-37.0); MCV 98.5 fL (80.0-100.0); Mean Platelet Volume 8.6; Monocytes # (A) 0.5 k/uL (0-1.0); Monocytes % (A) 5 %; Neutrophils # (A) 8.6 k/uL (1.3-7.7); Neutrophils % (A) 88 %; Platelet Count 140 k/uL (150-450); RBC 3.53 m/uL (4.30-5.90); RDW 13.3 % (11.5-15.5); WBC 9.8 k/uL (3.8-10.6)
[2021-10-20] MEDS ORDERED: ACETAMINOPHEN TAB 500 MG TAB PO STA (18:02)
--- NOTE | 2021-10-20 18:02 | ED ---
General Adult HPI - General Chief complaint: Weakness Stated complaint: Hyperglycemia Time Seen by Provider: 10/20/21 17:19 Source: patient, EMS Mode of arrival: ambulatory - History of Present Illness Initial comments: Dictation was produced using [employer] dictation software. please excuse any grammatical, word or spelling errors. Chief Complaint: 55-year-old male presents to the emergency department for generalized weakness. History of Present Illness: 85-year-old male who has past medical history of insulin-dependent diabetes mellitus, GERD, hypertension seizure disorder. Patient presents to the emergency department for worsening weakness. Patient's symptoms began the last 3-4 days. Today he was too weak to get up off the floor after he fell. EMS was called by . Patient was given penicillin prior to coming to the emergency room for elevated blood sugar at home. EMS reported the patient's blood sugar was in the 300s. Patient complains of generalized weakness. He has no focal pain. Patient has any fever. Denies any cough or runny nose. No chest pain or belly pain. The ROS documented in this emergency department record has been reviewed and confirmed by me. Those systems with pertinent positive or negative responses have been documented in the HPI. All other systems are other negative and/or noncontributory. PHYSICAL EXAM: General Impression: Alert and oriented x3, lethargic HEENT: Normocephalic atraumatic, extra-ocular movements intact, pupils equal and reactive to light bilaterally, dry mucous membranes Cardiovascular: Heart regular rate and rhythm Chest: Able to complete full sentences, no retractions, no tachypnea, clear to auscultation bilaterally Abdomen: abdomen soft, non-tender, non-distended, no organomegaly Musculoskeletal: Pulses present and equal in all extremities, no peripheral edema Motor: no focal deficits noted Neurological: CN II-XII grossly intact, no focal motor or sensory deficits noted Skin: Intact with no visualized rashes Psych: Normal affect and mood ED course: 55-year-old presents emergency department for generalized weakness. There is a component of hyperglycemia at home. He is given fast acting insulin prior to arrival. Blood sugar was in the 300s prior to arrival. Vital signs upon arrival shows temperature 100.4, heart rate of 131, rest of vital signs within acceptable limits. Laboratory evaluation obtained. CBC within acceptable limits. Cardiac panel is negative. Metabolic panel shows sodium 124 with a glucose of 331. His likely component of pseudohyponatremia. Mild acidosis with a bicarb of 19. Elevated renal markers at 2.59 with a BUN of 71. Patient's baseline is usually around 1. Troponin 0.129. 4 panel viral PCR is negative. Computed tomography scan of brain and chest x-ray is nonacute. Patient given multiple boluses of IV fluids with improvement of heart rate from 1:30 down to 100s. Patient reevaluated bedside 8:50 PM. Pending urine studies. Clinical presentation consistent with acute kidney injury likely secondary to dehydration exacerbated by uncontrolled hyperglycemia. Due to patient's acidosis patient started on sodium bicarbonate, IV fluids. Case discussed Dr. atkinson is willing to accept patients care. Nephrology consulted. There is concern that patient's pyrexia is from a viral cause. EKG interpretation: Ventricular rate 105, sinus tachycardia, NH interval 163, QS 12, QTc 389. No NH prolongation, no QTC prolongation, no ST or T-wave changes noted. EKG compared to 08/04/2017 showing no changes. Overall, this EKG is unremarkable - Related Data Home Medications Medication Instructions Recorded Confirmed Omeprazole [PriLOSEC] 20 mg PO DAILY 01/17/14 10/20/21 lisinopriL [Zestril] 20 mg PO DAILY 08/04/17 10/20/21 Albuterol Sulfate [Proair Hfa] 2 puff INHALATION RT-Q4H PRN 10/20/21 10/20/21 Atorvastatin [Lipitor] 40 mg PO DAILY 10/20/21 10/20/21 Donepezil [Aricept] 10 mg PO DAILY 10/20/21 10/20/21 Glucagon [Baqsimi] 1 spray NASAL DAILY PRN 10/20/21 10/20/21 INSULIN LISPRO (For Pump) [humaLOG 0.01 units SQ-PUMP CONTINUOUS 10/20/21 10/20/21 (For Pump)] Allergies Allergy/AdvReac Type Severity Reaction Status Date / Time No Known Allergies Allergy Verified 10/20/21 19:48 Review of Systems ROS Statement: Those systems with pertinent positive or pertinent negative responses have been documented in the HPI. ROS Other: All systems not noted in ROS Statement are negative. Past Medical History Past Medical History: Diabetes Mellitus, GERD/Reflux, Hypertension, Seizure Disorder Additional Past Medical History / Comment(s): NEUROPATHY LOWER EXTREMITIES, HX OF FEET FX'S. "CRACKED L-5". History of Any Multi-Drug Resistant Organisms: None Reported Past Surgical History: No Surgical Hx Reported Additional Past Surgical History / Comment(s): COLONOSCOPY, carotids endaterectomy (right). Past Anesthesia/Blood Transfusion Reactions: No Reported Reaction Additional Past Anesthesia/Blood Transfusion Reaction / Comment(s): STATES BLOOD PRESSURE "JAMES HIGH" AFTER COLONOSCOPY. Past Psychological History: No Psychological Hx Reported Smoking Status: Never smoker Past Alcohol Use History: Abuse Past Drug Use History: None Reported - Past Family History Mother Family Medical History: Diabetes Mellitus Additional Family Medical History / Comment(s): crohn's disease, Course Vital Signs 10/20/21 10/20/21 10/20/21 17:18 17:25 19:21 Temperature 100.4 F H 99.8 F H Pulse Rate 131 H 131 H 109 H Respiratory 18 20 24 Rate Blood Pressure 130/81 101/80 94/52 O2 Sat by Pulse 97 95 98 Oximetry Medical Decision Making - Lab Data Result diagrams: 10/20/21 17:40 10/20/21 17:40 Lab Results 10/20/21 10/20/21 10/20/21 Range/Units 17:40 17:40 17:40 WBC 9.8 (3.8-10.6) k/uL RBC 3.53 L (4.30-5.90) m/uL Hgb 11.7 L (13.0-17.5) gm/dL Hct 34.8 L (39.0-53.0) % MCV 98.5 (80.0-100.0) fL MCH 33.2 (25.0-35.0) pg MCHC 33.7 (31.0-37.0) g/dL RDW 13.3 (11.5-15.5) % Plt Count 140 L (150-450) k/uL MPV 8.6 Neutrophils % 88 % Lymphocytes % 3 % Monocytes % 5 % Eosinophils % 0 % Basophils % 0 % Neutrophils # 8.6 H (1.3-7.7) k/uL Lymphocytes # 0.3 L (1.0-4.8) k/uL Monocytes # 0.5 (0-1.0) k/uL Eosinophils # 0.0 (0-0.7) k/uL Basophils # 0.0 (0-0.2) k/uL Manual Slide Review Performed PT 9.8 (9.0-12.0) sec INR 0.9 (<1.2) APTT 25.4 (22.0-30.0) sec Sodium 124 L (137-145) mmol/L Potassium 3.7 (3.5-5.1) mmol/L Chloride 92 L (98-107) mmol/L Carbon Dioxide 19 L (22-30) mmol/L Anion Gap 13 mmol/L BUN 71 H (9-20) mg/dL Creatinine 2.59 H (0.66-1.25) mg/dL Est GFR (CKD-EPI)AfAm 31 (>60 ml/min/1.73 sqM) Est GFR (CKD-EPI)NonAf 27 (>60 ml/min/1.73 sqM) Glucose 331 H (74-99) mg/dL Plasma Lactic Acid Lázaro (0.7-2.0) mmol/L Calcium 8.3 L (8.4-10.2) mg/dL Magnesium 1.6 (1.6-2.3) mg/dL Total Bilirubin 0.7 (0.2-1.3) mg/dL AST 282 H (17-59) U/L ALT 77 H (4-49) U/L Alkaline Phosphatase 85 (38-126) U/L Troponin I (0.000-0.034) ng/mL Total Protein 6.4 (6.3-8.2) g/dL Albumin 3.4 L (3.5-5.0) g/dL Influenza Type A (PCR) (Not Detectd) Influenza Type B (PCR) (Not Detectd) RSV (PCR) (Not Detectd) SARS-CoV-2 (PCR) (Not Detectd) 10/20/21 10/20/21 10/20/21 Range/Units 17:40 17:40 17:40 WBC (3.8-10.6) k/uL RBC (4.30-5.90) m/uL Hgb (13.0-17.5) gm/dL Hct (39.0-53.0) % MCV (80.0-100.0) fL MCH (25.0-35.0) pg MCHC (31.0-37.0) g/dL RDW (11.5-15.5) % Plt Count (150-450) k/uL MPV Neutrophils % % Lymphocytes % % Monocytes % % Eosinophils % % Basophils % % Neutrophils # (1.3-7.7) k/uL Lymphocytes # (1.0-4.8) k/uL Monocytes # (0-1.0) k/uL Eosinophils # (0-0.7) k/uL Basophils # (0-0.2) k/uL Manual Slide Review PT (9.0-12.0) sec INR (<1.2) APTT (22.0-30.0) sec Sodium (137-145) mmol/L Potassium (3.5-5.1) mmol/L Chloride (98-107) mmol/L Carbon Dioxide (22-30) mmol/L Anion Gap mmol/L BUN (9-20) mg/dL Creatinine (0.66-1.25) mg/dL Est GFR (CKD-EPI)AfAm (>60 ml/min/1.73 sqM) Est GFR (CKD-EPI)NonAf (>60 ml/min/1.73 sqM) Glucose (74-99) mg/dL Plasma Lactic Acid Lázaro 1.8 (0.7-2.0) mmol/L Calcium (8.4-10.2) mg/dL Magnesium (1.6-2.3) mg/dL Total Bilirubin (0.2-1.3) mg/dL AST (17-59) U/L ALT (4-49) U/L Alkaline Phosphatase (38-126) U/L Troponin I 0.129 H* (0.000-0.034) ng/mL Total Protein (6.3-8.2) g/dL Albumin (3.5-5.0) g/dL Influenza Type A (PCR) Not Detected (Not Detectd) Influenza Type B (PCR) Not Detected (Not Detectd) RSV (PCR) Not Detected (Not Detectd) SARS-CoV-2 (PCR) Not Detected (Not Detectd) Critical Care Time Critical Care Time: Yes Total Critical Care Time: 33 Disposition Clinical Impression: Dehydration, IRIS (acute kidney injury) Disposition: ADMITTED IP TO THIS [facility] Condition: Serious Referrals: Boris Fischer MD [Primary Care Provider] - 1-2 days Decision Time: 20:50
[2021-10-20 18:06] LABS: INR 0.9 (<1.2); Partial Thromboplastin Time 25.4 sec (22.0-30.0); Prothrombin Time 9.8 sec (9.0-12.0)
[2021-10-20 18:09] LABS: Albumin 3.4 g/dL (3.5-5.0); Calcium 8.3 mg/dL (8.4-10.2); Magnesium 1.6 mg/dL (1.6-2.3); Potassium 3.7 mmol/L (3.5-5.1); Total Bilirubin 0.7 mg/dL (0.2-1.3); Total Protein 6.4 g/dL (6.3-8.2)
--- NOTE | 2021-10-20 18:53 | XR ---
EXAMINATION TYPE: XR chest 1V portable DATE OF EXAM: 10/20/2021 5:53 PM COMPARISON: Chest radiographs from 08/07/2017 TECHNIQUE: XR chest 1V portable Frontal view of the chest. CLINICAL INDICATION:Male, 55 years old with history of fever, tachycardia; FINDINGS: Lungs/Pleura: There is no evidence of pleural effusion, focal consolidation, or pneumothorax. Pulmonary vascularity: Unremarkable. Heart/mediastinum: Cardiomediastinal silhouette is unremarkable. Musculoskeletal: No acute osseous pathology. IMPRESSION: No acute cardiopulmonary disease/process.
--- NOTE | 2021-10-20 19:29 | CT ---
EXAMINATION TYPE: CT brain wo con CT DLP: 1127.4 mGycm, Automated exposure control for dose reduction was used. DATE OF EXAM: 10/20/2021 7:09 PM COMPARISON: Prior CT Brain from 08/06/2017. CLINICAL INDICATION:Male, 55 years old with history of altered mental status, weakness. ams TECHNIQUE: Brain: Multiple axial CT images of the brain were obtained without IV contrast. FINDINGS: Brain: Extra-axial spaces: No abnormal extra-axial fluid collections. Ventricular system: Within normal limits Cerebral parenchyma: Similar and subtle malacia of the right temporal lobe compared to 2018. No acute intraparenchymal hemorrhage or mass effect. The candelario-white junction is well differentiated. Cerebellum: Unremarkable. Mass effect: No evidence of midline shift. Intracranial vasculature: Atherosclerotic calcifications of the intracranial vessels. Soft tissues: Normal. Calvarium/osseous structures: No depressed skull fracture. Paranasal sinuses and mastoid air cells: Mild scattered paranasal sinus disease most pronounced in le ft maxillary sinus. Visualized orbits: Bilateral aphakia IMPRESSION: No acute intracranial process. Encephalomalacia of the right temporal lobe similar to 2018.
[2021-10-20] MEDS ORDERED: NALOXONE 0.4 MG/ML 1 ML VIAL IV PRN (20:46)
[2021-10-20] MEDS: DEXTROSE 5% IN WATER 1,000 ML with SODIUM BICARB (1 MEQ/ML) 50 ML IV SCH (20:55)
[2021-10-20] MEDS ORDERED: SODIUM CHLORIDE 0.9% 1,000 ML IV SCH (21:00)
[2021-10-20] MEDS ORDERED: INSULIN LISPRO (For Pump) 100 UNIT/ML VIAL SQ-PUMP SCH (23:45)
[2021-10-20] MEDS ORDERED: ALBUTEROL NEBULIZED 2.5 MG/3 ML INHALATION PRN (23:51)
[2021-10-21 00:24] LABS: Glucose,Whole Blood 484 mg/dL (75-99)
[2021-10-21] MEDS ORDERED: LACTATED RINGERS 1,000 ML IV ONE (00:30)
[2021-10-21] MEDS ORDERED: ACETAMINOPHEN TAB 500 MG TAB PO STA (01:44)
[2021-10-21] MEDS ORDERED: PANTOPRAZOLE 40 MG TABLET PO SCH (07:30)
[2021-10-21] MEDS ORDERED: INSULIN ASPART (NovoLOG) 100 UNIT/ML VIAL SQ SCH ×3 (07:30→12:30)
[2021-10-21 08:10] LABS: Glucose,Whole Blood 547 mg/dL (75-99)
[2021-10-21] MEDS: DEXTROSE 5% IN WATER 1,000 ML with SODIUM BICARB (1 MEQ/ML) 50 ML IV SCH (08:58)
[2021-10-21] MEDS ORDERED: ATORVASTATIN 40 MG TAB PO SCH (09:00)
[2021-10-21 09:12] LABS: HCT 35.5 % (39.0-53.0); HGB 11.7 gm/dL (13.0-17.5); MCH 32.9 pg (25.0-35.0); MCHC 32.9 g/dL (31.0-37.0); MCV 100.1 fL (80.0-100.0); Mean Platelet Volume 8.6; Platelet Count 127 k/uL (150-450); RBC 3.54 m/uL (4.30-5.90); RDW 13.4 % (11.5-15.5)
[2021-10-21 09:21] LABS: Calcium 7.7 mg/dL (8.4-10.2); Potassium 3.5 mmol/L (3.5-5.1)
[2021-10-21] MEDS ORDERED: THIAMINE 100 MG/ML 2 ML VIAL IM STA (09:21)
[2021-10-21] MEDS ORDERED: INSULIN REGULAR BOLUS (FROM DRIP BAG) IV PRN (09:24)
--- NOTE | 2021-10-21 10:05 | P.NPCON ---
History of Present Illness - Reason for Consult acute renal failure - History of Present Illness Patient is an 85-year-old male with history of type 2 diabetes currently insulin-dependent. Patient also has a history of hypertension, seizure disorder. He presented to the hospital with complaints of increased weakness. Patient is noted to have blood sugars ranging in the 500-600 range. Patient also sustained a fall prior to admission. At this time patient is not able to give a detailed history. He is noted to have a serum sodium of 124 and a creatinine of 2.59. Previous creatinine 1.5 and 1.7 mg/dL in 2019. Patient is incontinent and had's had some urine output. A Beltrán catheter is being placed Patient has a fever of 101.4F and heart rate is elevated in the 1:30 range. Blood pressure was low with systolic in the 90s currently staying at about 113-1 17 mmHg. Review of Systems As per HPI Past Medical History Past Medical History: Diabetes Mellitus, GERD/Reflux, Hypertension, Seizure Disorder Additional Past Medical History / Comment(s): NEUROPATHY LOWER EXTREMITIES, HX OF FEET FX'S. "CRACKED L-5". History of Any Multi-Drug Resistant Organisms: None Reported Past Surgical History: No Surgical Hx Reported Additional Past Surgical History / Comment(s): COLONOSCOPY, carotids endaterectomy (right). Past Anesthesia/Blood Transfusion Reactions: No Reported Reaction Additional Past Anesthesia/Blood Transfusion Reaction / Comment(s): STATES BLOOD PRESSURE "JAMES HIGH" AFTER COLONOSCOPY. Past Psychological History: No Psychological Hx Reported Smoking Status: Never smoker Past Alcohol Use History: Abuse Past Drug Use History: None Reported - Past Family History Mother Family Medical History: Diabetes Mellitus Additional Family Medical History / Comment(s): crohn's disease, Medications and Allergies Home Medications Medication Instructions Recorded Confirmed Type Omeprazole [PriLOSEC] 20 mg PO DAILY 01/17/14 10/20/21 History lisinopriL [Zestril] 20 mg PO DAILY 08/04/17 10/20/21 History Albuterol Sulfate [Proair Hfa] 2 puff INHALATION RT-Q4H PRN 10/20/21 10/20/21 History Atorvastatin [Lipitor] 40 mg PO DAILY 10/20/21 10/20/21 History Donepezil [Aricept] 10 mg PO DAILY 10/20/21 10/20/21 History Glucagon [Baqsimi] 1 spray NASAL DAILY PRN 10/20/21 10/20/21 History INSULIN LISPRO (For Pump) [humaLOG 0.01 units SQ-PUMP CONTINUOUS 10/20/21 10/20/21 History (For Pump)] Allergies Allergy/AdvReac Type Severity Reaction Status Date / Time No Known Allergies Allergy Verified 10/20/21 19:48 Physical Exam Vitals: Vital Signs Temp Pulse Resp BP Pulse Ox 10/21/21 07:00 99.8 F H 10/21/21 04:43 101.4 F H 121 H 28 H 117/56 95 10/21/21 03:09 101.4 F H 129 H 30 H 113/76 96 10/21/21 01:37 101.6 F H 134 H 36 H 120/98 99 10/21/21 00:28 98.9 F 121 H 36 H 110/88 100 10/20/21 22:05 110 H 12 112/92 94 L 10/20/21 19:21 99.8 F H 109 H 24 94/52 98 10/20/21 17:25 131 H 20 101/80 95 10/20/21 17:18 100.4 F H 131 H 18 130/81 97 Intake and Output 10/20/21 10/21/21 10/21/21 22:59 06:59 14:59 Other: Weight 106.594 kg Awake, comfortable, to No acute distress Confused Examination of the heart S1 and S2 Examination of the lungs bilateral breath sounds are heard Abdomen is soft nontender Examination lower extremities shows no edema [employer] exam shows patient is moving all 4 extremities. He is confused Results - Lab Results Most recent lab results Calcium 7.7 mg/dL (8.4-10.2) L 10/21/21 08:41 Magnesium 1.6 mg/dL (1.6-2.3) 10/20/21 17:40 10/21/21 08:41 10/21/21 08:41 Assessment and Plan Assessment: 1. Acute kidney injury prerenal and component of ATN from hypotension. Blood pressure is better. Continue with IV hydration. Check UA. Check ultrasound of the kidneys 2. Chronic kidney disease NKF stage III a with previous creatinine around 1.5- 1.7 mg/dL. Etiology likely nephrosclerosis previous UA was negative for protein in 2019 3. Anion gap metabolic acidosis associated with acute kidney injury. Rule out DKA 4. Hyponatremia, hypovolemic and associated with significant hyperglycemia. Currently improved 5. Fever, possible pneumonia. UA is pending 6. History of hypertension. FAITH inhibitor's currently on hold Plan: Start bicarb drip Check serum acetone Check UA Insulin drip as per primary care service Check ultrasound of the kidneys Repeat labs in a.m. Continue to hold off on FAITH inhibitor's
[2021-10-21 10:24] LABS: Band Neutrophils % 1 %; Lymphocytes # (M) 0.43 k/uL (1.0-4.8); Neutrophils % (M) 81 %; Nucleated Red Blood Cells 1 /100 WBC (0-0); Total Cells Counted 200; WBC 8.6 k/uL (3.8-10.6)
[2021-10-21 10:26] LABS: Toxic Granulation Present; Toxic Vacuolation Present
[2021-10-21 10:28] LABS: Amorphous Sediment,Urine Rare /hpf; Appearance,Urine Cloudy (Clear); Bacteria,Urine Rare /hpf; Bilirubin,Urine Negative (Negative); Blood,Urine Large (Negative); Color,Urine Yellow; Glucose,Urine (UA) 4+ (Negative); Ketones,Urine Trace (Negative); Leukocyte Esterase,Urine Small (Negative); Nitrite,Urine Positive (Negative); PH, Urine 5.5 (5.0-8.0); Protein,Urine 1+ (Negative); RBC,Urine 1 /hpf (0-5); Specific Gravity,Urine 1.013 (1.001-1.035); Squamous Epithelial Cell,Urine <1 /hpf (0-4); Urobilinogen,Urine <2.0 mg/dL (<2.0); WBC,Urine 13 /hpf (0-5)
--- NOTE | 2021-10-21 10:41 | P.HPIM ---
History of Present Illness H&P Date: 10/21/21 HISTORY OF PRESENT ILLNESS This is a 55-year-old male patient of Dr. Fischer with past medical history of diabetes mellitus on insulin pump, hypertension, seizure disorder, gastro esophageal reflux disease, generalized anxiety disorder, tobacco use and dependence, alcohol abuse suspected. Patient is able to state that he has not felt well for 3 days and insulin pump is not in place. He is a poor historian and unable to give accurate information. Patient's is on her way to the hospital. He was brought in to the emergency center by EMS for generalized weakness. Patient was too weak apparently to get off the floor after a fall. Patient was found to be febrile at 101.6, heart rate 134, blood pressure 120/98, respiratory rate 36, pulse ox 99% on 2 L. WBC 9.8, hemoglobin 11.7, platelet count 140. Sodium 124, potassium 3.7, chloride 92, CO2 19, BUN 71 and creatinine 2.59. Blood sugar 331 and subsequent blood glucose 484 and 547. Lactic acid 1.8. Calcium 8.3. Magnesium 1.6. Troponin is 0.129. Albumin 3.4. AST 282, ALT 77, alkaline phosphatase 85. Influenza a not detected, influenza B not detected, RSV not detected, SARS Covid to not detected. Chest x-ray revealed no acute cardiopulmonary process. CAT scan of the brain revealed no acute process. Encephalomalacia of the right temporal lobe similar to 2018. Patient is seen today in the emergency center waiting for a bed, we will change bed assignment to intensive care unit, and additional lab work ordered including alcohol level, acetone, blood culture, consults added for cardiology for tachyca rdia, elevated troponins, customer response representative for ICU management, neurology for metabolic encephalopathy and infectious disease. Patient started on empiric antibiotics with Zosyn, patient started on CIWA protocol. He is currently on bicarbonate drip with 1 amp 100 mL per hour. REVIEW OF SYSTEMS Unable to obtain due to patient's mental status. SOCIAL HISTORY Patient is believed to be a smoker, he admits to drinking a fifth of alcohol per day. FAMILY HISTORY Unable to obtain due to patient's mental status. PHYSICAL EXAMINATION Gen: This is a morbidly obese 55-year-old male. He is resting on the ER stretcher, somewhat restless, confused HEENT: Head is atraumatic, normocephalic. Pupils equal, round. Sclerae is anicteric. Patient does not smell of acetone/alcohol. NECK: Supple. No JVD. No lymphadenopathy. No thyromegaly. LUNGS: Diminished with a few scattered rhonchi. No intercostal retractions. HEART: Regular rate and rhythm. No murmur. ABDOMEN: Soft. Bowel sounds are present. No masses. No tenderness. EXTREMITIES: No pedal edema. No calf tenderness. SKIN: No skin lesions noted, no ulcers, no wounds, no areas of erythema. NEUROLOGICAL: Patient is awake, confused and unable to provide information, unable to follow clear directions. ASSESSMENT AND PLAN 1. Sepsis with fever, tachycardia, tachypnea of unclear etiology. Admit patient to the intensive care unit and consult with customer response representative. Patient will be started on empiric antibiotics with Zosyn. Urine culture and blood culture to be obtained. Consult with Dr. Ashford. 2. Metabolic encephalopathy of unclear etiology. Consult with neurology. 3. Possible impending delirium tremors. Patient started on CIWA will call with Ativan, thiamine, obtain alcohol level. 4. Hyperglycemic state and patient with diabetes mellitus type 1 insulin requiring. Patient is not on insulin pump. Patient started on insulin drip. Obtain acetone level. 5. Acute kidney injury with chronic kidney disease stage III. Consult with nephrology appreciated. Patient on bicarb drip, check urinalysis, renal ultrasound and repeat labs, hold on FAITH inhibitor. 6. Anion gap metabolic acidosis secondary to acute kidney injury. Rule out DKA. Acetone level has been ordered. 7. Tachycardia most likely secondary to sepsis. Cardiology consult. 8. Elevated troponins. Cardiology consult cardiology consult appreciated. Echocardiogram ordered, repeat troponins. 9. Thrombocytopenia most likely secondary to sepsis. Continue to monitor. 10. Hyponatremia. Nephrology following.. 11. Hypertension. Hold lisinopril 20 mg daily. 12. Dementia. Continue Aricept 10 mg daily. 13. Hyperlipidemia. Continue Lipitor 40 mg daily. 14. Gastroesophageal reflux disease and GI prophylaxis. Protonix 40 mg IV daily. 15. History of acute respiratory failure requiring intubation secondary to polysubstance abuse which included narcotics and alcohol. 16. History of liver cirrhosis secondary to alcohol abuse. 17. History of Seizure disorder. Patient does not appear to be on Keppra anym ore. 18. Generalized anxiety disorder and recurrent depression. Patient will be admitted to the hospital for a minimum of 2 night stay. Prognosis guarded. DISCHARGE PLAN To be determined. Impression and plan of care have been directed as dictated by the signing physician. Elizabeth Spicer nurse practitioner acting as scribe for signing physician. Past Medical History Past Medical History: Diabetes Mellitus, GERD/Reflux, Hypertension, Seizure Disorder Additional Past Medical History / Comment(s): NEUROPATHY LOWER EXTREMITIES, HX OF FEET FX'S. "CRACKED L-5". History of Any Multi-Drug Resistant Organisms: None Reported Past Surgical History: No Surgical Hx Reported Additional Past Surgical History / Comment(s): COLONOSCOPY, carotids endaterectomy (right). Past Anesthesia/Blood Transfusion Reactions: No Reported Reaction Additional Past Anesthesia/Blood Transfusion Reaction / Comment(s): STATES BLOOD PRESSURE "JAMES HIGH" AFTER COLONOSCOPY. Past Psychological History: No Psychological Hx Reported Smoking Status: Never smoker Past Alcohol Use History: Abuse Past Drug Use History: None Reported - Past Family History Mother Family Medical History: Diabetes Mellitus Additional Family Medical History / Comment(s): crohn's disease, Medications and Allergies Home Medications Medication Instructions Recorded Confirmed Type Omeprazole [PriLOSEC] 20 mg PO DAILY 01/17/14 10/20/21 History lisinopriL [Zestril] 20 mg PO DAILY 08/04/17 10/20/21 History Albuterol Sulfate [Proair Hfa] 2 puff INHALATION RT-Q4H PRN 10/20/21 10/20/21 History Atorvastatin [Lipitor] 40 mg PO DAILY 10/20/21 10/20/21 History Donepezil [Aricept] 10 mg PO DAILY 10/20/21 10/20/21 History Glucagon [Baqsimi] 1 spray NASAL DAILY PRN 10/20/21 10/20/21 History INSULIN LISPRO (For Pump) [humaLOG 0.01 units SQ-PUMP CONTINUOUS 10/20/21 10/20/21 History (For Pump)] Allergies Allergy/AdvReac Type Severity Reaction Status Date / Time No Known Allergies Allergy Verified 10/20/21 19:48 Physical Exam Vitals: Vital Signs Temp Pulse Resp BP Pulse Ox 10/21/21 07:00 99.8 F H 10/21/21 04:43 101.4 F H 121 H 28 H 117/56 95 10/21/21 03:09 101.4 F H 129 H 30 H 113/76 96 10/21/21 01:37 101.6 F H 134 H 36 H 120/98 99 10/21/21 00:28 98.9 F 121 H 36 H 110/88 100 10/20/21 22:05 110 H 12 112/92 94 L 10/20/21 19:21 99.8 F H 109 H 24 94/52 98 10/20/21 17:25 131 H 20 101/80 95 10/20/21 17:18 100.4 F H 131 H 18 130/81 97 Intake and Output 10/20/21 10/21/21 10/21/21 22:59 06:59 14:59 Other: Weight 106.594 kg Results CBC & Chem 7: 10/21/21 08:41 10/21/21 08:41 Labs: Abnormal Lab Results - Last 24 Hours (Table) 10/20/21 10/20/21 10/20/21 Range/Units 17:40 17:40 17:40 RBC 3.53 L (4.30-5.90) m/uL Hgb 11.7 L (13.0-17.5) gm/dL Hct 34.8 L (39.0-53.0) % Plt Count 140 L (150-450) k/uL Neutrophils # 8.6 H (1.3-7.7) k/uL Lymphocytes # 0.3 L (1.0-4.8) k/uL Sodium 124 L (137-145) mmol/L Chloride 92 L (98-107) mmol/L Carbon Dioxide 19 L (22-30) mmol/L BUN 71 H (9-20) mg/dL Creatinine 2.59 H (0.66-1.25) mg/dL Glucose 331 H (74-99) mg/dL POC Glucose (mg/dL) (75-99) mg/dL Calcium 8.3 L (8.4-10.2) mg/dL AST 282 H (17-59) U/L ALT 77 H (4-49) U/L Troponin I 0.129 H* (0.000-0.034) ng/mL Albumin 3.4 L (3.5-5.0) g/dL 10/21/21 10/21/21 Range/Units 00:22 08:08 RBC (4.30-5.90) m/uL Hgb (13.0-17.5) gm/dL Hct (39.0-53.0) % Plt Count (150-450) k/uL Neutrophils # (1.3-7.7) k/uL Lymphocytes # (1.0-4.8) k/uL Sodium (137-145) mmol/L Chloride (98-107) mmol/L Carbon Dioxide (22-30) mmol/L BUN (9-20) mg/dL Creatinine (0.66-1.25) mg/dL Glucose (74-99) mg/dL POC Glucose (mg/dL) 484 H 547 H (75-99) mg/dL Calcium (8.4-10.2) mg/dL AST (17-59) U/L ALT (4-49) U/L Troponin I (0.000-0.034) ng/mL Albumin (3.5-5.0) g/dL
--- NOTE | 2021-10-21 11:09 | P.CNPUL ---
History of Present Illness Consult date: 10/21/21 Requesting physician: Nadeem Daniels Reason for consult: other Chief complaint: Possible sepsis, diabetic ketoacidosis. History of present illness: Pulmonary consult dated 10/21/2021. 55-year-old male with a history of diabetes, type I, hypertension, chronic kidney disease, COPD, dementia, alcohol abuse, and crack cocaine use. The patient presented to the emergency room, with weakness, inability to stand, mental status changes, mild temperature elevation, and confusion. The patient used to see Dr. Monteiro, but now sees a nurse practitioner by the name of Lo Meraz. The patient is seen in the emergency room, room 28. I was called down there by one of my ICU nurses. Apparently the primary care physician thought the patient should be better suited in the intensive care unit for further monitoring and management. I was not called by the primary doctor but rather the nurse. When I went down there, the patient was on room air. He was getting saline bolus at 1 L. Sodium bicarbonate drip had been written for, but the department head college or university did not want it started. The patient was not able to give any coherent history. The is at the bedside. She gave most of the history. The patient is on an insulin pump typically for his diabetes. He does use crack cocaine every day, drinks a fifth of vodka every day, and smokes a pack and a half to 2 packs of cigarettes every day. White count 8.6, hemoglobin 11.7, hematocrit 35.5, and platelet count of 127,000. Sodium 128, potassium 3.5, chlorides 97, CO2 14, anion gap 17, BUN 74, creatinine 2.65. Initial lactic acid 1.8. Troponin 0.129. AST 282. ALT 77. Testing for influenza A, and B, both negative. Coronavirus testing was also negative. Urine showed 1+ protein, 4+ glucose, and a positive urine nitrite, positive leukocyte esterase, 13 WBCs, and rare bacteria. Brain CT showed nothing acute. Chest x-ray was nor mal. The patient's temperature, was 100.9. Review of Systems REVIEW OF SYSTEMS: The patient could provide no history. CONSTITUTIONAL: Weakness and fatigue. Fever. NEUROLOGIC: Confused, agitated. HEENT: [ Negative.] CARDIAC: [Negative.] PULMONARY: [Negative.] GI: Poor oral intake. : [Negative.] RHEUMATOLOGIC: [ Negative.] IMMUNOLOGIC: [ Negative.] ENDOCRINE: Elevated blood glucose. DERMATOLOGIC: [Negative.] Past Medical History Past Medical History: Diabetes Mellitus, GERD/Reflux, Hypertension, Seizure Disorder Additional Past Medical History / Comment(s): NEUROPATHY LOWER EXTREMITIES, HX OF FEET FX'S. "CRACKED L-5". History of Any Multi-Drug Resistant Organisms: None Reported Past Surgical History: No Surgical Hx Reported Additional Past Surgical History / Comment(s): COLONOSCOPY, carotids endaterectomy (right). Past Anesthesia/Blood Transfusion Reactions: No Reported Reaction Additional Past Anesthesia/Blood Transfusion Reaction / Comment(s): STATES BLOOD PRESSURE "JAMES HIGH" AFTER COLONOSCOPY. Past Psychological History: No Psychological Hx Reported Smoking Status: Never smoker Past Alcohol Use History: Abuse Past Drug Use History: None Reported - Past Family History Mother Family Medical History: Diabetes Mellitus Additional Family Medical History / Comment(s): crohn's disease, Medications and Allergies Home Medications Medication Instructions Recorded Confirmed Type Omeprazole [PriLOSEC] 20 mg PO DAILY 01/17/14 10/20/21 History lisinopriL [Zestril] 20 mg PO DAILY 08/04/17 10/20/21 History Albuterol Sulfate [Proair Hfa] 2 puff INHALATION RT-Q4H PRN 10/20/21 10/20/21 History Atorvastatin [Lipitor] 40 mg PO DAILY 10/20/21 10/20/21 History Donepezil [Aricept] 10 mg PO DAILY 10/20/21 10/20/21 History Glucagon [Baqsimi] 1 spray NASAL DAILY PRN 10/20/21 10/20/21 History INSULIN LISPRO (For Pump) [humaLOG 0.01 units SQ-PUMP CONTINUOUS 10/20/21 10/20/21 History (For Pump)] Allergies Allergy/AdvReac Type Severity Reaction Status Date / Time No Known Allergies Allergy Verified 10/20/21 19:48 Physical Exam Osteopathic Statement: *. No significant issues noted on an osteopathic structural exam other than those noted in the History and Physical/Consult. Vitals: Vital Signs Temp Pulse Resp BP Pulse Ox 10/21/21 07:00 99.8 F H 10/21/21 04:43 101.4 F H 121 H 28 H 117/56 95 10/21/21 03:09 101.4 F H 129 H 30 H 113/76 96 10/21/21 01:37 101.6 F H 134 H 36 H 120/98 99 10/21/21 00:28 98.9 F 121 H 36 H 110/88 100 10/20/21 22:05 110 H 12 112/92 94 L 10/20/21 19:21 99.8 F H 109 H 24 94/52 98 10/20/21 17:25 131 H 20 101/80 95 10/20/21 17:18 100.4 F H 131 H 18 130/81 97 Intake and Output 10/20/21 10/21/21 10/21/21 22:59 06:59 14:59 Other: Weight 106.594 kg Confused, unable to give any additional history. A bit agitated. HEENT examination is grossly unremarkable. Mucous membranes are dry. Neck supple. Full range of motion. No adenopathy thyromegaly or neck vein distention. Cardiovascular examination reveals regular rhythm rate. S1-S2 normal. No S3 or S4. No discernible murmur noted. Heart rate 121 bpm. Lungs reveal scattered bilateral rhonchi. Breath sounds equal. No wheezes. Room air saturation 95%. Abdomen is obese. No bowel sounds. No tenderness. No masses. Extremities are intact. No cyanosis clubbing or edema. Skin is without rash or lesion. Neurologic examination cannot be properly assessed. He does move all 4 extremities. He is quite agitated. Unable to give any additional history. Results - Laboratory Findings CBC and BMP: 10/21/21 08:41 10/21/21 08:41 PT/INR, D-dimer PT 9.8 sec (9.0-12.0) 10/20/21 17:40 INR 0.9 (<1.2) 10/20/21 17:40 Abnormal lab findings: Abnormal Labs 10/20/21 10/20/21 10/20/21 17:40 17:40 17:40 RBC 3.53 L Hgb 11.7 L Hct 34.8 L MCV Plt Count 140 L Neutrophils # 8.6 H Lymphocytes # 0.3 L Lymphocytes # (Manual) Monocytes # (Manual) Nucleated RBCs Sodium 124 L Chloride 92 L Carbon Dioxide 19 L BUN 71 H Creatinine 2.59 H Glucose 331 H POC Glucose (mg/dL) Calcium 8.3 L AST 282 H ALT 77 H Troponin I 0.129 H* Albumin 3.4 L Urine Protein Urine Glucose (UA) Urine Ketones Urine Blood Ur Leukocyte Esterase Urine WBC Amorphous Sediment Urine Bacteria 10/21/21 10/21/21 10/21/21 00:22 08:08 08:41 RBC 3.54 L Hgb 11.7 L Hct 35.5 L MCV 100.1 H Plt Count 127 L Neutrophils # Lymphocytes # Lymphocytes # (Manual) 0.43 L Monocytes # (Manual) 1.20 H Nucleated RBCs 1 H Sodium Chloride Carbon Dioxide BUN Creatinine Glucose POC Glucose (mg/dL) 484 H 547 H Calcium AST ALT Troponin I Albumin Urine Protein Urine Glucose (UA) Urine Ketones Urine Blood Ur Leukocyte Esterase Urine WBC Amorphous Sediment Urine Bacteria 10/21/21 10/21/21 08:41 10:00 RBC Hgb Hct MCV Plt Count Neutrophils # Lymphocytes # Lymphocytes # (Manual) Monocytes # (Manual) Nucleated RBCs Sodium 128 L Chloride 97 L Carbon Dioxide 14 L BUN 74 H Creatinine 2.65 H Glucose 435 H POC Glucose (mg/dL) Calcium 7.7 L AST ALT Troponin I Albumin Urine Protein 1+ H Urine Glucose (UA) 4+ H Urine Ketones Trace H Urine Blood Large H Ur Leukocyte Esterase Small H Urine WBC 13 H Amorphous Sediment Rare H Urine Bacteria Rare H - Diagnostic Findings Chest x-ray: image reviewed Assessment and Plan Assessment: Mental status changes, confusion, and agitation, with elevated blood sugars, and possible underlying sepsis/urinary tract infection. History of type 1 diabetes mellitus, managed with insulin. Anion gap metabolic acidosis, likely related to kidney injury, and/or DKA. Elevated troponin level. History of chronic kidney disease. History of COPD from ongoing and heavy tobacco use. History of dementia. History of chronic alcohol abuse, drinking 1/5 of vodka daily. Daily crack cocaine use. Dilutional hyponatremia. Plan: Plan dated 10/21/2021. The patient will be transferred to the intensive care unit for further monitoring and management. The patient be given fluids and an insulin drip. The patient should be started on antibiotics. Labs x-rays, and medications are all reviewed. Prognosis is certainly guarded. The patient may have significant withdrawal-like symptoms given his chronic tobacco, alcohol, and crack cocaine use. We will continue to follow make recommendations where appropriate. Prognosis is certainly guarded. Time with Patient: Greater than 30
[2021-10-21 11:13] LABS: Alcohol <10 mg/dL
[2021-10-21] MEDS: PIPERACILLIN-TAZOBACTAM 3.375 GM in SODIUM CHLORIDE 0.9% 100 ML IVPB SCH ×2 (11:15→16:26)
[2021-10-21] MEDS: INSULIN REGULAR 100 UNIT in SODIUM CHLORIDE 0.9% 100 ML IV SCH ×2 (11:30→19:08)
[2021-10-21 11:33] LABS: Glucose,Whole Blood 562 mg/dL (75-99)
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
[2021-10-21 12:26] LABS: Glucose,Whole Blood 480 mg/dL (75-99)
--- NOTE | 2021-10-21 12:46 | CA ---
Transthoracic Echo Report Name: Fredi Cavazos Age: 55 Gender: M : 1965 Exam Date: 10/21/2021 11:44 Exam Location: [facility] Ht (in): 69 Wt (lb): 235 Ordering Physician: Chhaya Ann Attending/Referring Phys: Acquisitions Assistant Latisha Holguin RDCS Procedure CPT: Indications: LV function Cardiac Hx: Technical Quality: Technically difficult study Contrast 1: Lumason Total Dose (mL): 4 Contrast 2: Total Dose (mL): MEASUREMENTS (Male / Female) Normal Values 2D ECHO LV Diastolic Diameter PLAX 4.2 cm 4.2 - 5.9 / 3.9 - 5.3 cm LV Systolic Diameter PLAX 2.4 cm IVS Diastolic Thickness 1.6 cm 0.6 - 1.0 / 0.6 - 0.9 cm LVPW Diastolic Thickness 1.6 cm 0.6 - 1.0 / 0.6 - 0.9 cm LV Relative Wall Thickness 0.7 LA Volume 46.2 cm??? 18 - 58 / 22 - 52 cm??? M-MODE Aortic Root Diameter MM 3.3 cm LA Systolic Diameter MM 3.3 cm LA Ao Ratio MM 1.0 AV Cusp Separation MM 1.7 cm DOPPLER AV Peak Velocity 219.4 cm/s AV Peak Gradient 19.3 mmHg AV Mean Velocity 167.0 cm/s AV Mean Gradient 12.8 mmHg AV Velocity Time Integral 36.2 cm LVOT Peak Velocity 182.0 cm/s LVOT Peak Gradient 13.2 mmHg FINDINGS Left Ventricle Moderately increased left ventricular wall thickness. No obvious regional wall motion abnormalities. Left ventricular ejection fraction is estimated at 55-60 %. Right Ventricle Right ventricle not well visualized. Right Atrium Right atrium not well visualized. Left Atrium Normal left atrial size. Mitral Valve Mitral valve not well visualized. No mitral stenosis. Trace to mild mitral regurgitation. Aortic Valve Aortic valve not well visualized. Mild aortic stenosis with a peak gradient of 19 mmHg and a mean gradient of 13 mmHg. Tricuspid Valve Tricuspid valve not well visualized. Mild tricuspid regurgitation. Pulmonic Valve Pulmonic valve not well visualized. Pericardium No pericardial effusion. Aorta Aortic root and proximal ascending aorta not well visualized. CONCLUSIONS Moderate LVH Normal left ventricular ejection fraction 55-60 percent Mild aortic stenosis mean gradient 13 mmHg Mild aortic regurgitation Mild tricuspid regurgitation Mild mitral regurgitation Tachycardia noted throughout exam Previewed by: Dr. Chance Fritz DO (Electronically Signed) Final Date: 21 October 2021 12:45
[2021-10-21] MEDS: IPRATROPIUM-ALBUTEROL 3 ML NEB INHALATION SCH ×3 (13:06→20:29)
[2021-10-21 13:10] LABS: Glucose,Whole Blood 393 mg/dL (75-99)
[2021-10-21 14:02] LABS: Glucose,Whole Blood 366 mg/dL (75-99)
[2021-10-21] MEDS: DEXTROSE 5% IN WATER 1,000 ML with SODIUM BICARB (1 MEQ/ML) 150 ML IV SCH (14:04)
[2021-10-21] MEDS ORDERED: ACETAMINOPHEN IV (For NPO) 1,000 MG in EMPTY BAG 1 BAG IVPB STA (14:06)
--- NOTE | 2021-10-21 14:39 | US ---
EXAMINATION TYPE: US kidneys/renal and bladder DATE OF EXAM: 10/21/2021 COMPARISON: NONE CLINICAL HISTORY: henrietta. henrietta Limited due to body habitus and patient being uncooperative EXAM MEASUREMENTS: Right Kidney: 10.9 x 5.0 x 6.2 cm Left Kidney: 10.6 x 5.0 x 6.2 cm Right Kidney: No hydronephrosis or masses seen Left Kidney: No hydronephrosis or masses seen Bladder: Patient had stewart, bladder was not visualized Bilateral Jets seen: No IMPRESSION: 1. Renal ultrasound as visualized appears unremarkable.
[2021-10-21] MEDS ORDERED: Magnesium Replacement Protocol 1 EACH MISC MISCELLANE PRN (14:48)
[2021-10-21 15:00] LABS: Glucose,Whole Blood 320 mg/dL (75-99)
[2021-10-21] MEDS: MAGNESIUM SULFATE-D5W PMX 1 GM in DEXTROSE/WATER 1 100ML.BAG IVPB SCH ×2 (15:03→16:26)
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
[2021-10-21 16:06] LABS: African American GFR (CKD) 28 (>60 ml/min/1.73 sqM); Anion Gap 11 mmol/L; Blood Urea Nitrogen 73 mg/dL (9-20); Calcium 7.7 mg/dL (8.4-10.2); Carbon Dioxide 19 mmol/L (22-30); Chloride 99 mmol/L (98-107); Glucose 268 mg/dL (74-99); Non-African American GFR(CKD) 24 (>60 ml/min/1.73 sqM); Potassium 2.9 mmol/L (3.5-5.1); Sodium 129 mmol/L (137-145)
[2021-10-21 16:24] LABS: Glucose,Whole Blood 271 mg/dL (75-99)
[2021-10-21] MEDS ORDERED: Potassium Replacement Protocol 1 EACH MISC MISCELLANE PRN (16:34)
[2021-10-21 17:04] LABS: Glucose,Whole Blood 238 mg/dL (75-99)
[2021-10-21] MEDS ORDERED: THIAMINE 100 MG TAB PO SCH (17:30)
[2021-10-21] MEDS: POTASSIUM CHLORIDE 10 MEQ in WATER FOR INJECTION 1 100ML.BAG IVPB SCH ×6 (17:31→23:55)
[2021-10-21 17:56] LABS: Glucose,Whole Blood 227 mg/dL (75-99)
[2021-10-21 19:09] LABS: Glucose,Whole Blood 191 mg/dL (75-99)
[2021-10-21 19:56] LABS: Glucose,Whole Blood 202 mg/dL (75-99)
[2021-10-21] MEDS: LORazepam 2 MG/ML INJ IV PRN (20:29)
[2021-10-21 20:56] LABS: Glucose,Whole Blood 215 mg/dL (75-99)
[2021-10-21] MEDS ORDERED: VANCOMYCIN IV PER PHARMACY 1 EACH MISC MISCELLANE PRN (21:14)
[2021-10-21] MEDS ORDERED: VANCOMYCIN 1,750 MG in SODIUM CHLORIDE 0.9% 500 ML 500 ML IVPB ONE (21:30)
[2021-10-21] MEDS: ACETAMINOPHEN IV (For NPO) 1,000 MG in EMPTY BAG 1 BAG IVPB PRN (21:44)
[2021-10-21 22:02] LABS: Glucose,Whole Blood 222 mg/dL (75-99)
--- NOTE | 2021-10-21 22:26 | P.CONS ---
History of Present Illness - Reason for Consult Consult date: 10/21/21 Septic Requesting physician: Elizabeth Spicer - Chief Complaint weakness x 3 days - History of Present Illness Patient is a 55-year-old male with a past medical history significant for type 1 diabetes mellitus on insulin pump hypertension seizure disorder generalized anxiety disorder and tobacco dependence, patient was brought into the ER after EMS was called for the patient not feeling well for the last 3 days along with generalized weakness apparently the patient was too weak to get up the floor after a fall, patient on presentation to the hospital was noticed to be febrile with a temperature of 101.6 F patient was tachycardic and mildly hypoxic did not require any supplemental oxygen in the ER patient did have a normal white count with lymphopenia repeat white count this morning was normal as well patient did have elevated BUN and creatinine liver enzymes mildly elevated troponin was mildly elevated urine has been relatively negative patient did have a negative influenza RSV and COVID patient did have a chest x-ray no acute cardiopulmonary disease did have an echocardiogram today shows moderate LVH normal EF and no vegetation, renal ultrasound was unremarkable patient be started on Zosyn admitted to the hospital infectious disease was consulted for further management of antibiotic therapy most information has been obtained from review of the chart as the patient still elevated good historian however he notes that he was in the hospital and denies any headache or vomiting Review of Systems Positive points has been mentioned in HPI complete review could not be obtained because of his underlying mental status Past Medical History Past Medical History: Diabetes Mellitus, GERD/Reflux, Hypertension, Seizure Disorder Additional Past Medical History / Comment(s): NEUROPATHY LOWER EXTREMITIES, HX OF FEET FX'S. "CRACKED L-5". History of Any Multi-Drug Resistant Organisms: None Reported Past Surgical History: No Surgical Hx Reported Additional Past Surgical History / Comment(s): COLONOSCOPY, carotids endaterectomy (right). Past Anesthesia/Blood Transfusion Reactions: No Reported Reaction Additional Past Anesthesia/Blood Transfusion Reaction / Comm: STATES BLOOD PRESSURE "JAMES HIGH" AFTER COLONOSCOPY. Past Psychological History: No Psychological Hx Reported Smoking Status: Never smoker Past Alcohol Use History: Abuse Past Drug Use History: None Reported - Past Family History Mother Family Medical History: Diabetes Mellitus Additional Family Medical History / Comment(s): crohn's disease, Medications and Allergies Home Medications Medication Instructions Recorded Confirmed Type Omeprazole [PriLOSEC] 20 mg PO DAILY 01/17/14 10/20/21 History lisinopriL [Zestril] 20 mg PO DAILY 08/04/17 10/20/21 History Albuterol Sulfate [Proair Hfa] 2 puff INHALATION RT-Q4H PRN 10/20/21 10/20/21 History Atorvastatin [Lipitor] 40 mg PO DAILY 10/20/21 10/20/21 History Donepezil [Aricept] 10 mg PO DAILY 10/20/21 10/20/21 History Glucagon [Baqsimi] 1 spray NASAL DAILY PRN 10/20/21 10/20/21 History INSULIN LISPRO (For Pump) [humaLOG 0.01 units SQ-PUMP CONTINUOUS 10/20/21 10/20/21 History (For Pump)] Allergies Allergy/AdvReac Type Severity Reaction Status Date / Time No Known Allergies Allergy Verified 10/20/21 19:48 Physical Exam Vitals: Vital Signs Temp Pulse Pulse Resp BP BP Pulse Ox 10/21/21 08:00 100.9 F H 140 H 32 H 110/56 94 L 10/21/21 07:00 99.8 F H 10/21/21 04:43 101.4 F H 121 H 28 H 117/56 95 10/21/21 03:09 101.4 F H 129 H 30 H 113/76 96 10/21/21 01:37 101.6 F H 134 H 36 H 120/98 99 10/21/21 00:28 98.9 F 121 H 36 H 110/88 100 10/20/21 22:05 110 H 12 112/92 94 L 10/20/21 19:21 99.8 F H 109 H 24 94/52 98 10/20/21 17:25 131 H 20 101/80 95 10/20/21 17:18 100.4 F H 131 H 18 130/81 97 Intake and Output 10/20/21 10/21/21 10/21/21 22:59 06:59 14:59 Other: Weight 106.594 kg GENERAL DESCRIPTION: Middle-aged male lying in bed, no distress. No tachypnea or accessory muscle of respiration use. HEENT: Shows Pallor , no scleral icterus. Oral mucous membrane is dry. No pharyngeal erythema or thrush NECK: Trachea central, no thyromegaly. LUNGS: Unlabored breathing. Decreased breath sounds at bases. No wheeze or crackle. HEART: S1, S2, regular rate and rhythm. No loud murmur ABDOMEN: Soft, no tenderness , guarding or rigidity, no organomegaly EXTREMITIES: No edema of feet. SKIN: No rash, no masses palpable. NEUROLOGICAL: The patient is awake, alert, oriented x1, mood and affect normal. Results CBC & Chem 7: 10/21/21 08:41 10/21/21 15:29 Labs: Abnormal Lab Results - Last 24 Hours (Table) 10/20/21 10/20/21 10/20/21 Range/Units 17:40 17:40 17:40 RBC 3.53 L (4.30-5.90) m/uL Hgb 11.7 L (13.0-17.5) gm/dL Hct 34.8 L (39.0-53.0) % MCV (80.0-100.0) fL Plt Count 140 L (150-450) k/uL Neutrophils # 8.6 H (1.3-7.7) k/uL Lymphocytes # 0.3 L (1.0-4.8) k/uL Lymphocytes # (Manual) (1.0-4.8) k/uL Monocytes # (Manual) (0-1.0) k/uL Nucleated RBCs (0-0) /100 WBC Sodium 124 L (137-145) mmol/L Chloride 92 L (98-107) mmol/L Carbon Dioxide 19 L (22-30) mmol/L BUN 71 H (9-20) mg/dL Creatinine 2.59 H (0.66-1.25) mg/dL Glucose 331 H (74-99) mg/dL POC Glucose (mg/dL) (75-99) mg/dL Calcium 8.3 L (8.4-10.2) mg/dL AST 282 H (17-59) U/L ALT 77 H (4-49) U/L Troponin I 0.129 H* (0.000-0.034) ng/mL Albumin 3.4 L (3.5-5.0) g/dL Urine Protein (Negative) Urine Glucose (UA) (Negative) Urine Ketones (Negative) Urine Blood (Negative) Ur Leukocyte Esterase (Negative) Urine WBC (0-5) /hpf Amorphous Sediment (None) /hpf Urine Bacteria (None) /hpf 10/21/21 10/21/21 10/21/21 Range/Units 00:22 08:08 08:41 RBC 3.54 L (4.30-5.90) m/uL Hgb 11.7 L (13.0-17.5) gm/dL Hct 35.5 L (39.0-53.0) % MCV 100.1 H (80.0-100.0) fL Plt Count 127 L (150-450) k/uL Neutrophils # (1.3-7.7) k/uL Lymphocytes # (1.0-4.8) k/uL Lymphocytes # (Manual) 0.43 L (1.0-4.8) k/uL Monocytes # (Manual) 1.20 H (0-1.0) k/uL Nucleated RBCs 1 H (0-0) /100 WBC Sodium (137-145) mmol/L Chloride (98-107) mmol/L Carbon Dioxide (22-30) mmol/L BUN (9-20) mg/dL Creatinine (0.66-1.25) mg/dL Glucose (74-99) mg/dL POC Glucose (mg/dL) 484 H 547 H (75-99) mg/dL Calcium (8.4-10.2) mg/dL AST (17-59) U/L ALT (4-49) U/L Troponin I (0.000-0.034) ng/mL Albumin (3.5-5.0) g/dL Urine Protein (Negative) Urine Glucose (UA) (Negative) Urine Ketones (Negative) Urine Blood (Negative) Ur Leukocyte Esterase (Negative) Urine WBC (0-5) /hpf Amorphous Sediment (None) /hpf Urine Bacteria (None) /hpf 10/21/21 10/21/21 Range/Units 08:41 10:00 RBC (4.30-5.90) m/uL Hgb (13.0-17.5) gm/dL Hct (39.0-53.0) % MCV (80.0-100.0) fL Plt Count (150-450) k/uL Neutrophils # (1.3-7.7) k/uL Lymphocytes # (1.0-4.8) k/uL Lymphocytes # (Manual) (1.0-4.8) k/uL Monocytes # (Manual) (0-1.0) k/uL Nucleated RBCs (0-0) /100 WBC Sodium 128 L (137-145) mmol/L Chloride 97 L (98-107) mmol/L Carbon Dioxide 14 L (22-30) mmol/L BUN 74 H (9-20) mg/dL Creatinine 2.65 H (0.66-1.25) mg/dL Glucose 435 H (74-99) mg/dL POC Glucose (mg/dL) (75-99) mg/dL Calcium 7.7 L (8.4-10.2) mg/dL AST (17-59) U/L ALT (4-49) U/L Troponin I (0.000-0.034) ng/mL Albumin (3.5-5.0) g/dL Urine Protein 1+ H (Negative) Urine Glucose (UA) 4+ H (Negative) Urine Ketones Trace H (Negative) Urine Blood Large H (Negative) Ur Leukocyte Esterase Small H (Negative) Urine WBC 13 H (0-5) /hpf Amorphous Sediment Rare H (None) /hpf Urine Bacteria Rare H (None) /hpf Assessment and Plan Plan: 1patient presented to hospital with weakness in this patient did have a fever tachycardia meeting criteria for sepsis though initial work-up for a source has been negative with a negative UA chest x-ray did not show any acute abnormality patient abdominal was soft clinical examination and no evidence of any lower extremity cellulitis or joint swelling. 2patient with renal insufficiency and high risk of nephrotoxicity from vancomycin. 3did have mild elevated liver enzymes concern for cholecystitis versus cholangitis. 4we will obtain a CT abdominal pelvis with oral contrast only in view of elevated creatinine. 5continue patient on Zosyn while waiting for the culture to finalize. We will follow on clinical condition and cultures to further adjust medication if needed Thank you for this consultation will follow this patient along with you Time with Patient: Greater than 30
[2021-10-21] MEDS ORDERED: IOPAMIDOL CONTRAST (ORAL USE) VIAL PO PRN (22:27)
[2021-10-21] MEDS ORDERED: DAPTOmycin 500 MG in SODIUM CHLORIDE 0.9% 50 ML IVPB SCH (22:30)
[2021-10-21 23:06] LABS: Glucose,Whole Blood 222 mg/dL (75-99)
[2021-10-21] MEDS: LACTATED RINGERS 1,000 ML IV SCH (23:34)
[2021-10-21 23:59] LABS: Glucose,Whole Blood 208 mg/dL (75-99)
[2021-10-22] MEDS ORDERED: ACETAMINOPHEN IV (For NPO) 1,000 MG in EMPTY BAG 1 BAG IVPB SCH
[2021-10-22] MEDS: LACTATED RINGERS 1,000 ML IV SCH ×2 (00:30→02:01)
[2021-10-22 00:38] LABS: Allen Test Performed? Yes
[2021-10-22 00:52] LABS: ABG Base Excess -2.8 mmol/L; ABG HCO3 22 mmol/L (21-25); ABG Oxygen Saturation 90.6 % (94-97); ABG PCO2 34 mmHg (35-45); ABG PH 7.42 (7.35-7.45); ABG TCO2 23 mmol/L (19-24)
[2021-10-22 00:54] LABS: Glucose,Whole Blood 145 mg/dL (75-99)
[2021-10-22 00:57] LABS: ABG PO2 54 mmHg (83-108)
[2021-10-22] MEDS: IPRATROPIUM-ALBUTEROL 3 ML NEB INHALATION SCH ×4 (01:00→19:40)
[2021-10-22] MEDS: DEXTROSE 5% IN WATER 1,000 ML with SODIUM BICARB (1 MEQ/ML) 150 ML IV SCH (01:12)
[2021-10-22] MEDS: PIPERACILLIN-TAZOBACTAM 3.375 GM in SODIUM CHLORIDE 0.9% 100 ML IVPB SCH ×3 (01:20→16:02)
[2021-10-22 01:53] LABS: Glucose,Whole Blood 164 mg/dL (75-99)
[2021-10-22 02:54] LABS: Glucose,Whole Blood 143 mg/dL (75-99)
[2021-10-22] MEDS: NOREPINEPHRINE 4 MG in SODIUM CHLORIDE 0.9% 250 ML IV SCH ×2 (03:02→14:41)
[2021-10-22 03:54] LABS: Glucose,Whole Blood 138 mg/dL (75-99)
[2021-10-22] MEDS: ACETAMINOPHEN IV (For NPO) 1,000 MG in EMPTY BAG 1 BAG IVPB PRN (04:04)
[2021-10-22 04:58] LABS: Glucose,Whole Blood 179 mg/dL (75-99)
[2021-10-22 05:27] LABS: Glucose,Whole Blood 185 mg/dL (75-99)
[2021-10-22 05:54] LABS: HCT 31.1 % (39.0-53.0); HGB 10.1 gm/dL (13.0-17.5); MCH 31.9 pg (25.0-35.0); MCHC 32.4 g/dL (31.0-37.0); MCV 98.6 fL (80.0-100.0); Mean Platelet Volume 9.3; RBC 3.15 m/uL (4.30-5.90); RDW 13.7 % (11.5-15.5); WBC 9.1 k/uL (3.8-10.6)
[2021-10-22 05:55] LABS: Platelet Count 99 k/uL (150-450)
[2021-10-22 05:56] LABS: Glucose,Whole Blood 189 mg/dL (75-99)
[2021-10-22 06:00] LABS: Albumin 2.4 g/dL (3.5-5.0); Calcium 7.2 mg/dL (8.4-10.2); Magnesium 1.9 mg/dL (1.6-2.3); Potassium 2.9 mmol/L (3.5-5.1); Total Bilirubin 0.5 mg/dL (0.2-1.3); Total Protein 5.1 g/dL (6.3-8.2)
[2021-10-22] MEDS ORDERED: Potassium Replacement Protocol 1 EACH MISC MISCELLANE PRN (06:07)
[2021-10-22 06:09] LABS: Band Neutrophils % 3 %; Lymphocytes # (M) 0.73 k/uL (1.0-4.8); Monocytes # (M) 0.82 k/uL (0-1.0); Neutrophils % (M) 80 %; Nucleated Red Blood Cells 0 /100 WBC (0-0); Total Cells Counted 100
[2021-10-22] MEDS: POTASSIUM CHLORIDE 10 MEQ in WATER FOR INJECTION 1 100ML.BAG IVPB SCH ×10 (06:23→21:18)
[2021-10-22 06:55] LABS: Glucose,Whole Blood 208 mg/dL (75-99)
[2021-10-22] MEDS ORDERED: PANTOPRAZOLE 40 MG TABLET PO SCH (07:30)
[2021-10-22 07:46] LABS: Glucose,Whole Blood 203 mg/dL (75-99)
[2021-10-22] MEDS: THIAMINE 100 MG/ML 2 ML VIAL IVP SCH ×2 (08:27→20:25)
[2021-10-22] MEDS ORDERED: DONEPEZIL 10 MG TAB PO SCH (09:00)
[2021-10-22 09:04] LABS: Glucose,Whole Blood 211 mg/dL (75-99)
[2021-10-22] MEDS: LORazepam 2 MG/ML INJ IV PRN ×4 (09:32→22:27)
--- NOTE | 2021-10-22 09:54 | P.PN ---
Subjective Progress Note Date: 10/22/21 This is a 55-year-old gentleman with a polysubstance abuse who was admitted to the hospital with altered mental status. We are asked to see the patient because of abnormal troponin. Patient also has acute renal failure with creatinine getting worse. He is also being treated for possible sepsis. At his troponin trend is probably not consistent with acute coronary injury. Most probably related to his acute renal failure. Echocardiogram did not show any segmental wall motion defects. LV function is preserved. No acute changes on EKG. Continue current medical therapy. Nephrology follow-up. Patient is on IV fluids, insulin drip and antibiotics. We'll follow him as needed Objective - Vital Signs Vital signs: Vital Signs Temp 98.9 F 10/22/21 08:00 Pulse 112 H 10/22/21 09:00 Resp 33 H 10/22/21 09:00 BP 94/59 10/22/21 09:00 Pulse Ox 98 10/22/21 09:00 FiO2 Intake & Output 10/21/21 10/22/21 10/22/21 18:59 06:59 18:59 Intake Total 6733.093 1520.801 686.855 Output Total 525 425 225 Balance 764.036 0450.801 461.855 Weight 106.594 kg 111.1 kg Intake: IV 3750 620 .9 @ 20 20 ACETAMINOPHEN IV (For NPO 100 ) 1,000 mg In Empty Bag 1 bag @ 400 mls/hr IVPB ONCE STA Rx#:[id number] DAPTOmycin 500 mg In 50 Sodium Chloride 0.9% 50 ml @ 100 mls/hr IVPB Q48H [facility] Rx#:[id number] Dextrose 5% in Water 1, 1100 300 000 ml @ 100 mls/hr IV . [id number] [facility] with Sodium Bicarb (1 Meq/ml) 150 ml Rx#:[id number] Lactated Ringers 1,000 ml 2000 @ 999 mls/hr IV .Q1H1M [facility] Rx#:[id number] Piperacillin-Tazobactam 3 100 100 .375 gm In Sodium Chloride 0.9% 100 ml @ 25 mls/hr IVPB Q8HR [facility] Rx# :[id number] Potassium Chloride 10 meq 400 200 In Water For Injection 1 100ml.bag @ 100 mls/hr IVPB Q1HR [facility] Rx#: [id number] Intake, IV Titration 1159.536 208.801 66.855 Amount ACETAMINOPHEN IV (For NPO 100 ) 1,000 mg In Empty Bag 1 bag @ 400 mls/hr IVPB ONCE STA Rx#:[id number] Dextrose 5% in Water 1, 300 100 000 ml @ 100 mls/hr IV . [id number] [facility] with Sodium Bicarb (1 Meq/ml) 50 ml Rx#:[id number] Dextrose 5% in Water 1, 100 000 ml @ 100 mls/hr IV . [id number] [facility] with Sodium Bicarb (1 Meq/ml) 150 ml Rx#:[id number] Insulin Regular 100 unit 59.536 68.663 16.496 In Sodium Chloride 0.9% 100 ml @ Per Protocol IV .Q0M [facility] Rx#:[id number] Magnesium Sulfate-D5w Pmx 300 1 gm In Dextrose/Water 1 100ml.bag @ 100 mls/hr IVPB Q1H [facility] Rx#: [id number] Norepinephrine 4 mg In 40.138 50.359 Sodium Chloride 0.9% 250 ml @ 0.05 MCG/KG/MIN 20. 306 mls/hr IV .[id number] [facility] Rx#:[id number] Piperacillin-Tazobactam 3 100 .375 gm In Sodium Chloride 0.9% 100 ml @ 25 mls/hr IVPB Q8HR [facility] Rx# :[id number] Potassium Chloride 10 meq 200 In Water For Injection 1 100ml.bag @ 100 mls/hr IVPB Q1HR [facility] Rx#: [id number] Output: Urine 525 425 225 Other: Voiding Method Indwelling Catheter Indwelling Catheter Indwelling Catheter # Bowel Movements 1 - Exam GENERAL EXAM: Patient doesn't appear to be acute distress HEENT: Normocephalic NECK: No masses, no nuchal rigidity. CHEST: No chest wall deformity. LUNGS: Expiratory rhonchi. HEART: S1 and S2 normal with no audible mumurs or gallops. Regular rhythm, femorals equal on both sides.. ABDOMEN: No hepatosplenomegaly, normal bowel sounds, no guarding or rigidity. SKIN: No rashes CENTRAL NERVOUS SYSTEM: No focal deficits. EXTREMITIES: No cyanosis, clubbing or edema. - Labs CBC & Chem 7: 10/22/21 05:21 10/22/21 05:21 Labs: Abnormal Lab Results - Last 24 Hours (Table) 10/20/21 10/21/21 10/21/21 Range/Units 17:40 08:41 10:00 RBC (4.30-5.90) m/uL Hgb (13.0-17.5) gm/dL Hct (39.0-53.0) % Plt Count (150-450) k/uL Lymphocytes # (Manual) 0.43 L (1.0-4.8) k/uL Monocytes # (Manual) 1.20 H (0-1.0) k/uL Nucleated RBCs 1 H (0-0) /100 WBC ABG pCO2 (35-45) mmHg ABG pO2 (83-108) mmHg ABG O2 Saturation (94-97) % Sodium (137-145) mmol/L Potassium (3.5-5.1) mmol/L Carbon Dioxide (22-30) mmol/L BUN (9-20) mg/dL Creatinine (0.66-1.25) mg/dL Glucose (74-99) mg/dL POC Glucose (mg/dL) (75-99) mg/dL Hemoglobin A1c (0.0-6.0) % Calcium (8.4-10.2) mg/dL AST (17-59) U/L ALT (4-49) U/L Troponin I 0.129 H* (0.000-0.034) ng/mL Total Protein (6.3-8.2) g/dL Albumin (3.5-5.0) g/dL Vitamin B12 (200.0-944.0) pg/mL Urine Protein 1+ H (Negative) Urine Glucose (UA) 4+ H (Negative) Urine Ketones Trace H (Negative) Urine Blood Large H (Negative) Ur Leukocyte Esterase Small H (Negative) Urine WBC 13 H (0-5) /hpf Amorphous Sediment Rare H (None) /hpf Urine Bacteria Rare H (None) /hpf 10/21/21 10/21/21 10/21/21 Range/Units 10:43 11:24 12:14 RBC (4.30-5.90) m/uL Hgb (13.0-17.5) gm/dL Hct (39.0-53.0) % Plt Count (150-450) k/uL Lymphocytes # (Manual) (1.0-4.8) k/uL Monocytes # (Manual) (0-1.0) k/uL Nucleated RBCs (0-0) /100 WBC ABG pCO2 (35-45) mmHg ABG pO2 (83-108) mmHg ABG O2 Saturation (94-97) % Sodium (137-145) mmol/L Potassium (3.5-5.1) mmol/L Carbon Dioxide (22-30) mmol/L BUN (9-20) mg/dL Creatinine (0.66-1.25) mg/dL Glucose (74-99) mg/dL POC Glucose (mg/dL) 562 H 480 H (75-99) mg/dL Hemoglobin A1c (0.0-6.0) % Calcium (8.4-10.2) mg/dL AST (17-59) U/L ALT (4-49) U/L Troponin I 0.140 H* (0.000-0.034) ng/mL Total Protein (6.3-8.2) g/dL Albumin (3.5-5.0) g/dL Vitamin B12 (200.0-944.0) pg/mL Urine Protein (Negative) Urine Glucose (UA) (Negative) Urine Ketones (Negative) Urine Blood (Negative) Ur Leukocyte Esterase (Negative) Urine WBC (0-5) /hpf Amorphous Sediment (None) /hpf Urine Bacteria (None) /hpf 10/21/21 10/21/21 10/21/21 Range/Units 13:09 14:01 14:58 RBC (4.30-5.90) m/uL Hgb (13.0-17.5) gm/dL Hct (39.0-53.0) % Plt Count (150-450) k/uL Lymphocytes # (Manual) (1.0-4.8) k/uL Monocytes # (Manual) (0-1.0) k/uL Nucleated RBCs (0-0) /100 WBC ABG pCO2 (35-45) mmHg ABG pO2 (83-108) mmHg ABG O2 Saturation (94-97) % Sodium (137-145) mmol/L Potassium (3.5-5.1) mmol/L Carbon Dioxide (22-30) mmol/L BUN (9-20) mg/dL Creatinine (0.66-1.25) mg/dL Glucose (74-99) mg/dL POC Glucose (mg/dL) 393 H 366 H 320 H (75-99) mg/dL Hemoglobin A1c (0.0-6.0) % Calcium (8.4-10.2) mg/dL AST (17-59) U/L ALT (4-49) U/L Troponin I (0.000-0.034) ng/mL Total Protein (6.3-8.2) g/dL Albumin (3.5-5.0) g/dL Vitamin B12 (200.0-944.0) pg/mL Urine Protein (Negative) Urine Glucose (UA) (Negative) Urine Ketones (Negative) Urine Blood (Negative) Ur Leukocyte Esterase (Negative) Urine WBC (0-5) /hpf Amorphous Sediment (None) /hpf Urine Bacteria (None) /hpf 10/21/21 10/21/21 10/21/21 Range/Units 15:29 15:29 15:29 RBC (4.30-5.90) m/uL Hgb (13.0-17.5) gm/dL Hct (39.0-53.0) % Plt Count (150-450) k/uL Lymphocytes # (Manual) (1.0-4.8) k/uL Monocytes # (Manual) (0-1.0) k/uL Nucleated RBCs (0-0) /100 WBC ABG pCO2 (35-45) mmHg ABG pO2 (83-108) mmHg ABG O2 Saturation (94-97) % Sodium 129 L (137-145) mmol/L Potassium 2.9 L (3.5-5.1) mmol/L Carbon Dioxide 19 L (22-30) mmol/L BUN 73 H (9-20) mg/dL Creatinine 2.82 H (0.66-1.25) mg/dL Glucose 268 H (74-99) mg/dL POC Glucose (mg/dL) (75-99) mg/dL Hemoglobin A1c 9.6 H (0.0-6.0) % Calcium 7.7 L (8.4-10.2) mg/dL AST (17-59) U/L ALT (4-49) U/L Troponin I 0.162 H* (0.000-0.034) ng/mL Total Protein (6.3-8.2) g/dL Albumin (3.5-5.0) g/dL Vitamin B12 1482.0 H (200.0-944.0) pg/mL Urine Protein (Negative) Urine Glucose (UA) (Negative) Urine Ketones (Negative) Urine Blood (Negative) Ur Leukocyte Esterase (Negative) Urine WBC (0-5) /hpf Amorphous Sediment (None) /hpf Urine Bacteria (None) /hpf 10/21/21 10/21/21 10/21/21 Range/Units 16:23 17:03 17:55 RBC (4.30-5.90) m/uL Hgb (13.0-17.5) gm/dL Hct (39.0-53.0) % Plt Count (150-450) k/uL Lymphocytes # (Manual) (1.0-4.8) k/uL Monocytes # (Manual) (0-1.0) k/uL Nucleated RBCs (0-0) /100 WBC ABG pCO2 (35-45) mmHg ABG pO2 (83-108) mmHg ABG O2 Saturation (94-97) % Sodium (137-145) mmol/L Potassium (3.5-5.1) mmol/L Carbon Dioxide (22-30) mmol/L BUN (9-20) mg/dL Creatinine (0.66-1.25) mg/dL Glucose (74-99) mg/dL POC Glucose (mg/dL) 271 H 238 H 227 H (75-99) mg/dL Hemoglobin A1c (0.0-6.0) % Calcium (8.4-10.2) mg/dL AST (17-59) U/L ALT (4-49) U/L Troponin I (0.000-0.034) ng/mL Total Protein (6.3-8.2) g/dL Albumin (3.5-5.0) g/dL Vitamin B12 (200.0-944.0) pg/mL Urine Protein (Negative) Urine Glucose (UA) (Negative) Urine Ketones (Negative) Urine Blood (Negative) Ur Leukocyte Esterase (Negative) Urine WBC (0-5) /hpf Amorphous Sediment (None) /hpf Urine Bacteria (None) /hpf 10/21/21 10/21/21 10/21/21 Range/Units 19:07 19:55 20:55 RBC (4.30-5.90) m/uL Hgb (13.0-17.5) gm/dL Hct (39.0-53.0) % Plt Count (150-450) k/uL Lymphocytes # (Manual) (1.0-4.8) k/uL Monocytes # (Manual) (0-1.0) k/uL Nucleated RBCs (0-0) /100 WBC ABG pCO2 (35-45) mmHg ABG pO2 (83-108) mmHg ABG O2 Saturation (94-97) % Sodium (137-145) mmol/L Potassium (3.5-5.1) mmol/L Carbon Dioxide (22-30) mmol/L BUN (9-20) mg/dL Creatinine (0.66-1.25) mg/dL Glucose (74-99) mg/dL POC Glucose (mg/dL) 191 H 202 H 215 H (75-99) mg/dL Hemoglobin A1c (0.0-6.0) % Calcium (8.4-10.2) mg/dL AST (17-59) U/L ALT (4-49) U/L Troponin I (0.000-0.034) ng/mL Total Protein (6.3-8.2) g/dL Albumin (3.5-5.0) g/dL Vitamin B12 (200.0-944.0) pg/mL Urine Protein (Negative) Urine Glucose (UA) (Negative) Urine Ketones (Negative) Urine Blood (Negative) Ur Leukocyte Esterase (Negative) Urine WBC (0-5) /hpf Amorphous Sediment (None) /hpf Urine Bacteria (None) /hpf 10/21/21 10/21/21 10/21/21 Range/Units 22:00 23:03 23:58 RBC (4.30-5.90) m/uL Hgb (13.0-17.5) gm/dL Hct (39.0-53.0) % Plt Count (150-450) k/uL Lymphocytes # (Manual) (1.0-4.8) k/uL Monocytes # (Manual) (0-1.0) k/uL Nucleated RBCs (0-0) /100 WBC ABG pCO2 (35-45) mmHg ABG pO2 (83-108) mmHg ABG O2 Saturation (94-97) % Sodium (137-145) mmol/L Potassium (3.5-5.1) mmol/L Carbon Dioxide (22-30) mmol/L BUN (9-20) mg/dL Creatinine (0.66-1.25) mg/dL Glucose (74-99) mg/dL POC Glucose (mg/dL) 222 H 222 H 208 H (75-99) mg/dL Hemoglobin A1c (0.0-6.0) % Calcium (8.4-10.2) mg/dL AST (17-59) U/L ALT (4-49) U/L Troponin I (0.000-0.034) ng/mL Total Protein (6.3-8.2) g/dL Albumin (3.5-5.0) g/dL Vitamin B12 (200.0-944.0) pg/mL Urine Protein (Negative) Urine Glucose (UA) (Negative) Urine Ketones (Negative) Urine Blood (Negative) Ur Leukocyte Esterase (Negative) Urine WBC (0-5) /hpf Amorphous Sediment (None) /hpf Urine Bacteria (None) /hpf 10/22/21 10/22/21 10/22/21 Range/Units 00:36 00:52 01:52 RBC (4.30-5.90) m/uL Hgb (13.0-17.5) gm/dL Hct (39.0-53.0) % Plt Count (150-450) k/uL Lymphocytes # (Manual) (1.0-4.8) k/uL Monocytes # (Manual) (0-1.0) k/uL Nucleated RBCs (0-0) /100 WBC ABG pCO2 34 L (35-45) mmHg ABG pO2 54 L* (83-108) mmHg ABG O2 Saturation 90.6 L (94-97) % Sodium (137-145) mmol/L Potassium (3.5-5.1) mmol/L Carbon Dioxide (22-30) mmol/L BUN (9-20) mg/dL Creatinine (0.66-1.25) mg/dL Glucose (74-99) mg/dL POC Glucose (mg/dL) 145 H 164 H (75-99) mg/dL Hemoglobin A1c (0.0-6.0) % Calcium (8.4-10.2) mg/dL AST (17-59) U/L ALT (4-49) U/L Troponin I (0.000-0.034) ng/mL Total Protein (6.3-8.2) g/dL Albumin (3.5-5.0) g/dL Vitamin B12 (200.0-944.0) pg/mL Urine Protein (Negative) Urine Glucose (UA) (Negative) Urine Ketones (Negative) Urine Blood (Negative) Ur Leukocyte Esterase (Negative) Urine WBC (0-5) /hpf Amorphous Sediment (None) /hpf Urine Bacteria (None) /hpf 10/22/21 10/22/21 10/22/21 Range/Units 02:53 03:52 04:56 RBC (4.30-5.90) m/uL Hgb (13.0-17.5) gm/dL Hct (39.0-53.0) % Plt Count (150-450) k/uL Lymphocytes # (Manual) (1.0-4.8) k/uL Monocytes # (Manual) (0-1.0) k/uL Nucleated RBCs (0-0) /100 WBC ABG pCO2 (35-45) mmHg ABG pO2 (83-108) mmHg ABG O2 Saturation (94-97) % Sodium (137-145) mmol/L Potassium (3.5-5.1) mmol/L Carbon Dioxide (22-30) mmol/L BUN (9-20) mg/dL Creatinine (0.66-1.25) mg/dL Glucose (74-99) mg/dL POC Glucose (mg/dL) 143 H 138 H 179 H (75-99) mg/dL Hemoglobin A1c (0.0-6.0) % Calcium (8.4-10.2) mg/dL AST (17-59) U/L ALT (4-49) U/L Troponin I (0.000-0.034) ng/mL Total Protein (6.3-8.2) g/dL Albumin (3.5-5.0) g/dL Vitamin B12 (200.0-944.0) pg/mL Urine Protein (Negative) Urine Glucose (UA) (Negative) Urine Ketones (Negative) Urine Blood (Negative) Ur Leukocyte Esterase (Negative) Urine WBC (0-5) /hpf Amorphous Sediment (None) /hpf Urine Bacteria (None) /hpf 10/22/21 10/22/21 10/22/21 Range/Units 05:21 05:21 05:26 RBC 3.15 L (4.30-5.90) m/uL Hgb 10.1 L (13.0-17.5) gm/dL Hct 31.1 L (39.0-53.0) % Plt Count 99 L (150-450) k/uL Lymphocytes # (Manual) 0.73 L (1.0-4.8) k/uL Monocytes # (Manual) (0-1.0) k/uL Nucleated RBCs (0-0) /100 WBC ABG pCO2 (35-45) mmHg ABG pO2 (83-108) mmHg ABG O2 Saturation (94-97) % Sodium 131 L (137-145) mmol/L Potassium 2.9 L (3.5-5.1) mmol/L Carbon Dioxide (22-30) mmol/L BUN 73 H (9-20) mg/dL Creatinine 2.89 H (0.66-1.25) mg/dL Glucose 191 H (74-99) mg/dL POC Glucose (mg/dL) 185 H (75-99) mg/dL Hemoglobin A1c (0.0-6.0) % Calcium 7.2 L (8.4-10.2) mg/dL AST 225 H (17-59) U/L ALT 85 H (4-49) U/L Troponin I (0.000-0.034) ng/mL Total Protein 5.1 L (6.3-8.2) g/dL Albumin 2.4 L (3.5-5.0) g/dL Vitamin B12 (200.0-944.0) pg/mL Urine Protein (Negative) Urine Glucose (UA) (Negative) Urine Ketones (Negative) Urine Blood (Negative) Ur Leukocyte Esterase (Negative) Urine WBC (0-5) /hpf Amorphous Sediment (None) /hpf Urine Bacteria (None) /hpf 10/22/21 10/22/21 10/22/21 Range/Units 05:55 06:54 07:44 RBC (4.30-5.90) m/uL Hgb (13.0-17.5) gm/dL Hct (39.0-53.0) % Plt Count (150-450) k/uL Lymphocytes # (Manual) (1.0-4.8) k/uL Monocytes # (Manual) (0-1.0) k/uL Nucleated RBCs (0-0) /100 WBC ABG pCO2 (35-45) mmHg ABG pO2 (83-108) mmHg ABG O2 Saturation (94-97) % Sodium (137-145) mmol/L Potassium (3.5-5.1) mmol/L Carbon Dioxide (22-30) mmol/L BUN (9-20) mg/dL Creatinine (0.66-1.25) mg/dL Glucose (74-99) mg/dL POC Glucose (mg/dL) 189 H 208 H 203 H (75-99) mg/dL Hemoglobin A1c (0.0-6.0) % Calcium (8.4-10.2) mg/dL AST (17-59) U/L ALT (4-49) U/L Troponin I (0.000-0.034) ng/mL Total Protein (6.3-8.2) g/dL Albumin (3.5-5.0) g/dL Vitamin B12 (200.0-944.0) pg/mL Urine Protein (Negative) Urine Glucose (UA) (Negative) Urine Ketones (Negative) Urine Blood (Negative) Ur Leukocyte Esterase (Negative) Urine WBC (0-5) /hpf Amorphous Sediment (None) /hpf Urine Bacteria (None) /hpf 10/22/21 Range/Units 09:02 RBC (4.30-5.90) m/uL Hgb (13.0-17.5) gm/dL Hct (39.0-53.0) % Plt Count (150-450) k/uL Lymphocytes # (Manual) (1.0-4.8) k/uL Monocytes # (Manual) (0-1.0) k/uL Nucleated RBCs (0-0) /100 WBC ABG pCO2 (35-45) mmHg ABG pO2 (83-108) mmHg ABG O2 Saturation (94-97) % Sodium (137-145) mmol/L Potassium (3.5-5.1) mmol/L Carbon Dioxide (22-30) mmol/L BUN (9-20) mg/dL Creatinine (0.66-1.25) mg/dL Glucose (74-99) mg/dL POC Glucose (mg/dL) 211 H (75-99) mg/dL Hemoglobin A1c (0.0-6.0) % Calcium (8.4-10.2) mg/dL AST (17-59) U/L ALT (4-49) U/L Troponin I (0.000-0.034) ng/mL Total Protein (6.3-8.2) g/dL Albumin (3.5-5.0) g/dL Vitamin B12 (200.0-944.0) pg/mL Urine Protein (Negative) Urine Glucose (UA) (Negative) Urine Ketones (Negative) Urine Blood (Negative) Ur Leukocyte Esterase (Negative) Urine WBC (0-5) /hpf Amorphous Sediment (None) /hpf Urine Bacteria (None) /hpf Microbiology - Last 24 Hours (Table) 10/21/21 10:37 Blood Culture Gram Stain - Preliminary Blood 10/21/21 10:37 Blood Culture - Final Blood 10/21/21 10:00 Urine Culture - Preliminary Urine,Voided Assessment and Plan (1) Troponin level elevated Current Visit: Yes Status: Acute Code(s): R77.8 - OTHER SPECIFIED ABNORMALITIES OF PLASMA PROTEINS SNOMED Code(s): 993807814 (2) IRIS (acute kidney injury) Current Visit: Yes Status: Acute Code(s): N17.9 - ACUTE KIDNEY FAILURE, UNSPECIFIED SNOMED Code(s): 07503381 (3) Encephalopathy acute Current Visit: No Status: Acute Code(s): G93.40 - ENCEPHALOPATHY, UNSPECIFIED SNOMED Code(s): 18813908 (4) Diabetes mellitus Current Visit: No Status: Chronic Code(s): E11.9 - TYPE 2 DIABETES MELLITUS WITHOUT COMPLICATIONS SNOMED Code(s): 64163447 Plan: Echo cardiogram showed normal LV function without any segmental wall motion defects. Troponin elevation is felt to be secondary to renal failure. No acute cardiac intervention at this time. We'll follow as needed
[2021-10-22 10:13] LABS: Glucose,Whole Blood 156 mg/dL (75-99)
--- NOTE | 2021-10-22 10:13 | P.PN ---
Subjective Patient is seen in follow-up for acute kidney injury and chronic kidney disease. Creatinine fairly stable at 2.89 today. Maintained on bicarb drip. Bicarb level 22 today. Nonoliguric. Patient is confused and not a reliable historian at this time. States he wants to use of Bactrim. He has a Beltrán catheter. Vital signs are stable. On low-dose Levophed. General: Patient is confused. HEENT: No JVD. LUNGS: Breath sounds decreased. HEART: Rate and Rhythm are regular. ABDOMEN: Soft, no distention. EXTREMITITES: No edema. Objective - Vital Signs Vital signs: Vital Signs Temp 98.9 F 10/22/21 08:00 Pulse 112 H 10/22/21 09:00 Resp 33 H 10/22/21 09:00 BP 94/59 10/22/21 09:00 Pulse Ox 98 10/22/21 09:00 FiO2 Intake & Output 10/21/21 10/22/21 10/22/21 18:59 06:59 18:59 Intake Total 6321.373 6892.801 686.855 Output Total 525 425 225 Balance 535.218 6185.801 461.855 Weight 106.594 kg 111.1 kg Intake: IV 3750 620 .9 @ 20 20 ACETAMINOPHEN IV (For NPO 100 ) 1,000 mg In Empty Bag 1 bag @ 400 mls/hr IVPB ONCE STA Rx#:[id number] DAPTOmycin 500 mg In 50 Sodium Chloride 0.9% 50 ml @ 100 mls/hr IVPB Q48H [facility] Rx#:[id number] Dextrose 5% in Water 1, 1100 300 000 ml @ 100 mls/hr IV . [id number] [facility] with Sodium Bicarb (1 Meq/ml) 150 ml Rx#:[id number] Lactated Ringers 1,000 ml 2000 @ 999 mls/hr IV .Q1H1M [facility] Rx#:[id number] Piperacillin-Tazobactam 3 100 100 .375 gm In Sodium Chloride 0.9% 100 ml @ 25 mls/hr IVPB Q8HR [facility] Rx# :[id number] Potassium Chloride 10 meq 400 200 In Water For Injection 1 100ml.bag @ 100 mls/hr IVPB Q1HR [facility] Rx#: [id number] Intake, IV Titration 1159.536 208.801 66.855 Amount ACETAMINOPHEN IV (For NPO 100 ) 1,000 mg In Empty Bag 1 bag @ 400 mls/hr IVPB ONCE STA Rx#:[id number] Dextrose 5% in Water 1, 300 100 000 ml @ 100 mls/hr IV . [id number] [facility] with Sodium Bicarb (1 Meq/ml) 50 ml Rx#:[id number] Dextrose 5% in Water 1, 100 000 ml @ 100 mls/hr IV . [id number] [facility] with Sodium Bicarb (1 Meq/ml) 150 ml Rx#:[id number] Insulin Regular 100 unit 59.536 68.663 16.496 In Sodium Chloride 0.9% 100 ml @ Per Protocol IV .Q0M [facility] Rx#:[id number] Magnesium Sulfate-D5w Pmx 300 1 gm In Dextrose/Water 1 100ml.bag @ 100 mls/hr IVPB Q1H [facility] Rx#: [id number] Norepinephrine 4 mg In 40.138 50.359 Sodium Chloride 0.9% 250 ml @ 0.05 MCG/KG/MIN 20. 306 mls/hr IV .[id number] [facility] Rx#:[id number] Piperacillin-Tazobactam 3 100 .375 gm In Sodium Chloride 0.9% 100 ml @ 25 mls/hr IVPB Q8HR [facility] Rx# :[id number] Potassium Chloride 10 meq 200 In Water For Injection 1 100ml.bag @ 100 mls/hr IVPB Q1HR [facility] Rx#: [id number] Output: Urine 525 425 225 Other: Voiding Method Indwelling Catheter Indwelling Catheter Indwelling Catheter # Bowel Movements 1 - Labs CBC & Chem 7: 10/22/21 05:21 10/22/21 05:21 Labs: Abnormal Lab Results - Last 24 Hours (Table) 10/20/21 10/21/21 10/21/21 Range/Units 17:40 08:41 10:00 RBC (4.30-5.90) m/uL Hgb (13.0-17.5) gm/dL Hct (39.0-53.0) % Plt Count (150-450) k/uL Lymphocytes # (Manual) 0.43 L (1.0-4.8) k/uL Monocytes # (Manual) 1.20 H (0-1.0) k/uL Nucleated RBCs 1 H (0-0) /100 WBC ABG pCO2 (35-45) mmHg ABG pO2 (83-108) mmHg ABG O2 Saturation (94-97) % Sodium (137-145) mmol/L Potassium (3.5-5.1) mmol/L Carbon Dioxide (22-30) mmol/L BUN (9-20) mg/dL Creatinine (0.66-1.25) mg/dL Glucose (74-99) mg/dL POC Glucose (mg/dL) (75-99) mg/dL Hemoglobin A1c (0.0-6.0) % Calcium (8.4-10.2) mg/dL AST (17-59) U/L ALT (4-49) U/L Troponin I 0.129 H* (0.000-0.034) ng/mL Total Protein (6.3-8.2) g/dL Albumin (3.5-5.0) g/dL Vitamin B12 (200.0-944.0) pg/mL Urine Protein 1+ H (Negative) Urine Glucose (UA) 4+ H (Negative) Urine Ketones Trace H (Negative) Urine Blood Large H (Negative) Ur Leukocyte Esterase Small H (Negative) Urine WBC 13 H (0-5) /hpf Amorphous Sediment Rare H (None) /hpf Urine Bacteria Rare H (None) /hpf 10/21/21 10/21/21 10/21/21 Range/Units 10:43 11:24 12:14 RBC (4.30-5.90) m/uL Hgb (13.0-17.5) gm/dL Hct (39.0-53.0) % Plt Count (150-450) k/uL Lymphocytes # (Manual) (1.0-4.8) k/uL Monocytes # (Manual) (0-1.0) k/uL Nucleated RBCs (0-0) /100 WBC ABG pCO2 (35-45) mmHg ABG pO2 (83-108) mmHg ABG O2 Saturation (94-97) % Sodium (137-145) mmol/L Potassium (3.5-5.1) mmol/L Carbon Dioxide (22-30) mmol/L BUN (9-20) mg/dL Creatinine (0.66-1.25) mg/dL Glucose (74-99) mg/dL POC Glucose (mg/dL) 562 H 480 H (75-99) mg/dL Hemoglobin A1c (0.0-6.0) % Calcium (8.4-10.2) mg/dL AST (17-59) U/L ALT (4-49) U/L Troponin I 0.140 H* (0.000-0.034) ng/mL Total Protein (6.3-8.2) g/dL Albumin (3.5-5.0) g/dL Vitamin B12 (200.0-944.0) pg/mL Urine Protein (Negative) Urine Glucose (UA) (Negative) Urine Ketones (Negative) Urine Blood (Negative) Ur Leukocyte Esterase (Negative) Urine WBC (0-5) /hpf Amorphous Sediment (None) /hpf Urine Bacteria (None) /hpf 10/21/21 10/21/21 10/21/21 Range/Units 13:09 14:01 14:58 RBC (4.30-5.90) m/uL Hgb (13.0-17.5) gm/dL Hct (39.0-53.0) % Plt Count (150-450) k/uL Lymphocytes # (Manual) (1.0-4.8) k/uL Monocytes # (Manual) (0-1.0) k/uL Nucleated RBCs (0-0) /100 WBC ABG pCO2 (35-45) mmHg ABG pO2 (83-108) mmHg ABG O2 Saturation (94-97) % Sodium (137-145) mmol/L Potassium (3.5-5.1) mmol/L Carbon Dioxide (22-30) mmol/L BUN (9-20) mg/dL Creatinine (0.66-1.25) mg/dL Glucose (74-99) mg/dL POC Glucose (mg/dL) 393 H 366 H 320 H (75-99) mg/dL Hemoglobin A1c (0.0-6.0) % Calcium (8.4-10.2) mg/dL AST (17-59) U/L ALT (4-49) U/L Troponin I (0.000-0.034) ng/mL Total Protein (6.3-8.2) g/dL Albumin (3.5-5.0) g/dL Vitamin B12 (200.0-944.0) pg/mL Urine Protein (Negative) Urine Glucose (UA) (Negative) Urine Ketones (Negative) Urine Blood (Negative) Ur Leukocyte Esterase (Negative) Urine WBC (0-5) /hpf Amorphous Sediment (None) /hpf Urine Bacteria (None) /hpf 10/21/21 10/21/21 10/21/21 Range/Units 15:29 15:29 15:29 RBC (4.30-5.90) m/uL Hgb (13.0-17.5) gm/dL Hct (39.0-53.0) % Plt Count (150-450) k/uL Lymphocytes # (Manual) (1.0-4.8) k/uL Monocytes # (Manual) (0-1.0) k/uL Nucleated RBCs (0-0) /100 WBC ABG pCO2 (35-45) mmHg ABG pO2 (83-108) mmHg ABG O2 Saturation (94-97) % Sodium 129 L (137-145) mmol/L Potassium 2.9 L (3.5-5.1) mmol/L Carbon Dioxide 19 L (22-30) mmol/L BUN 73 H (9-20) mg/dL Creatinine 2.82 H (0.66-1.25) mg/dL Glucose 268 H (74-99) mg/dL POC Glucose (mg/dL) (75-99) mg/dL Hemoglobin A1c 9.6 H (0.0-6.0) % Calcium 7.7 L (8.4-10.2) mg/dL AST (17-59) U/L ALT (4-49) U/L Troponin I 0.162 H* (0.000-0.034) ng/mL Total Protein (6.3-8.2) g/dL Albumin (3.5-5.0) g/dL Vitamin B12 1482.0 H (200.0-944.0) pg/mL Urine Protein (Negative) Urine Glucose (UA) (Negative) Urine Ketones (Negative) Urine Blood (Negative) Ur Leukocyte Esterase (Negative) Urine WBC (0-5) /hpf Amorphous Sediment (None) /hpf Urine Bacteria (None) /hpf 10/21/21 10/21/21 10/21/21 Range/Units 16:23 17:03 17:55 RBC (4.30-5.90) m/uL Hgb (13.0-17.5) gm/dL Hct (39.0-53.0) % Plt Count (150-450) k/uL Lymphocytes # (Manual) (1.0-4.8) k/uL Monocytes # (Manual) (0-1.0) k/uL Nucleated RBCs (0-0) /100 WBC ABG pCO2 (35-45) mmHg ABG pO2 (83-108) mmHg ABG O2 Saturation (94-97) % Sodium (137-145) mmol/L Potassium (3.5-5.1) mmol/L Carbon Dioxide (22-30) mmol/L BUN (9-20) mg/dL Creatinine (0.66-1.25) mg/dL Glucose (74-99) mg/dL POC Glucose (mg/dL) 271 H 238 H 227 H (75-99) mg/dL Hemoglobin A1c (0.0-6.0) % Calcium (8.4-10.2) mg/dL AST (17-59) U/L ALT (4-49) U/L Troponin I (0.000-0.034) ng/mL Total Protein (6.3-8.2) g/dL Albumin (3.5-5.0) g/dL Vitamin B12 (200.0-944.0) pg/mL Urine Protein (Negative) Urine Glucose (UA) (Negative) Urine Ketones (Negative) Urine Blood (Negative) Ur Leukocyte Esterase (Negative) Urine WBC (0-5) /hpf Amorphous Sediment (None) /hpf Urine Bacteria (None) /hpf 10/21/21 10/21/21 10/21/21 Range/Units 19:07 19:55 20:55 RBC (4.30-5.90) m/uL Hgb (13.0-17.5) gm/dL Hct (39.0-53.0) % Plt Count (150-450) k/uL Lymphocytes # (Manual) (1.0-4.8) k/uL Monocytes # (Manual) (0-1.0) k/uL Nucleated RBCs (0-0) /100 WBC ABG pCO2 (35-45) mmHg ABG pO2 (83-108) mmHg ABG O2 Saturation (94-97) % Sodium (137-145) mmol/L Potassium (3.5-5.1) mmol/L Carbon Dioxide (22-30) mmol/L BUN (9-20) mg/dL Creatinine (0.66-1.25) mg/dL Glucose (74-99) mg/dL POC Glucose (mg/dL) 191 H 202 H 215 H (75-99) mg/dL Hemoglobin A1c (0.0-6.0) % Calcium (8.4-10.2) mg/dL AST (17-59) U/L ALT (4-49) U/L Troponin I (0.000-0.034) ng/mL Total Protein (6.3-8.2) g/dL Albumin (3.5-5.0) g/dL Vitamin B12 (200.0-944.0) pg/mL Urine Protein (Negative) Urine Glucose (UA) (Negative) Urine Ketones (Negative) Urine Blood (Negative) Ur Leukocyte Esterase (Negative) Urine WBC (0-5) /hpf Amorphous Sediment (None) /hpf Urine Bacteria (None) /hpf 10/21/21 10/21/21 10/21/21 Range/Units 22:00 23:03 23:58 RBC (4.30-5.90) m/uL Hgb (13.0-17.5) gm/dL Hct (39.0-53.0) % Plt Count (150-450) k/uL Lymphocytes # (Manual) (1.0-4.8) k/uL Monocytes # (Manual) (0-1.0) k/uL Nucleated RBCs (0-0) /100 WBC ABG pCO2 (35-45) mmHg ABG pO2 (83-108) mmHg ABG O2 Saturation (94-97) % Sodium (137-145) mmol/L Potassium (3.5-5.1) mmol/L Carbon Dioxide (22-30) mmol/L BUN (9-20) mg/dL Creatinine (0.66-1.25) mg/dL Glucose (74-99) mg/dL POC Glucose (mg/dL) 222 H 222 H 208 H (75-99) mg/dL Hemoglobin A1c (0.0-6.0) % Calcium (8.4-10.2) mg/dL AST (17-59) U/L ALT (4-49) U/L Troponin I (0.000-0.034) ng/mL Total Protein (6.3-8.2) g/dL Albumin (3.5-5.0) g/dL Vitamin B12 (200.0-944.0) pg/mL Urine Protein (Negative) Urine Glucose (UA) (Negative) Urine Ketones (Negative) Urine Blood (Negative) Ur Leukocyte Esterase (Negative) Urine WBC (0-5) /hpf Amorphous Sediment (None) /hpf Urine Bacteria (None) /hpf 10/22/21 10/22/21 10/22/21 Range/Units 00:36 00:52 01:52 RBC (4.30-5.90) m/uL Hgb (13.0-17.5) gm/dL Hct (39.0-53.0) % Plt Count (150-450) k/uL Lymphocytes # (Manual) (1.0-4.8) k/uL Monocytes # (Manual) (0-1.0) k/uL Nucleated RBCs (0-0) /100 WBC ABG pCO2 34 L (35-45) mmHg ABG pO2 54 L* (83-108) mmHg ABG O2 Saturation 90.6 L (94-97) % Sodium (137-145) mmol/L Potassium (3.5-5.1) mmol/L Carbon Dioxide (22-30) mmol/L BUN (9-20) mg/dL Creatinine (0.66-1.25) mg/dL Glucose (74-99) mg/dL POC Glucose (mg/dL) 145 H 164 H (75-99) mg/dL Hemoglobin A1c (0.0-6.0) % Calcium (8.4-10.2) mg/dL AST (17-59) U/L ALT (4-49) U/L Troponin I (0.000-0.034) ng/mL Total Protein (6.3-8.2) g/dL Albumin (3.5-5.0) g/dL Vitamin B12 (200.0-944.0) pg/mL Urine Protein (Negative) Urine Glucose (UA) (Negative) Urine Ketones (Negative) Urine Blood (Negative) Ur Leukocyte Esterase (Negative) Urine WBC (0-5) /hpf Amorphous Sediment (None) /hpf Urine Bacteria (None) /hpf 10/22/21 10/22/21 10/22/21 Range/Units 02:53 03:52 04:56 RBC (4.30-5.90) m/uL Hgb (13.0-17.5) gm/dL Hct (39.0-53.0) % Plt Count (150-450) k/uL Lymphocytes # (Manual) (1.0-4.8) k/uL Monocytes # (Manual) (0-1.0) k/uL Nucleated RBCs (0-0) /100 WBC ABG pCO2 (35-45) mmHg ABG pO2 (83-108) mmHg ABG O2 Saturation (94-97) % Sodium (137-145) mmol/L Potassium (3.5-5.1) mmol/L Carbon Dioxide (22-30) mmol/L BUN (9-20) mg/dL Creatinine (0.66-1.25) mg/dL Glucose (74-99) mg/dL POC Glucose (mg/dL) 143 H 138 H 179 H (75-99) mg/dL Hemoglobin A1c (0.0-6.0) % Calcium (8.4-10.2) mg/dL AST (17-59) U/L ALT (4-49) U/L Troponin I (0.000-0.034) ng/mL Total Protein (6.3-8.2) g/dL Albumin (3.5-5.0) g/dL Vitamin B12 (200.0-944.0) pg/mL Urine Protein (Negative) Urine Glucose (UA) (Negative) Urine Ketones (Negative) Urine Blood (Negative) Ur Leukocyte Esterase (Negative) Urine WBC (0-5) /hpf Amorphous Sediment (None) /hpf Urine Bacteria (None) /hpf 10/22/21 10/22/21 10/22/21 Range/Units 05:21 05:21 05:26 RBC 3.15 L (4.30-5.90) m/uL Hgb 10.1 L (13.0-17.5) gm/dL Hct 31.1 L (39.0-53.0) % Plt Count 99 L (150-450) k/uL Lymphocytes # (Manual) 0.73 L (1.0-4.8) k/uL Monocytes # (Manual) (0-1.0) k/uL Nucleated RBCs (0-0) /100 WBC ABG pCO2 (35-45) mmHg ABG pO2 (83-108) mmHg ABG O2 Saturation (94-97) % Sodium 131 L (137-145) mmol/L Potassium 2.9 L (3.5-5.1) mmol/L Carbon Dioxide (22-30) mmol/L BUN 73 H (9-20) mg/dL Creatinine 2.89 H (0.66-1.25) mg/dL Glucose 191 H (74-99) mg/dL POC Glucose (mg/dL) 185 H (75-99) mg/dL Hemoglobin A1c (0.0-6.0) % Calcium 7.2 L (8.4-10.2) mg/dL AST 225 H (17-59) U/L ALT 85 H (4-49) U/L Troponin I (0.000-0.034) ng/mL Total Protein 5.1 L (6.3-8.2) g/dL Albumin 2.4 L (3.5-5.0) g/dL Vitamin B12 (200.0-944.0) pg/mL Urine Protein (Negative) Urine Glucose (UA) (Negative) Urine Ketones (Negative) Urine Blood (Negative) Ur Leukocyte Esterase (Negative) Urine WBC (0-5) /hpf Amorphous Sediment (None) /hpf Urine Bacteria (None) /hpf 10/22/21 10/22/21 10/22/21 Range/Units 05:55 06:54 07:44 RBC (4.30-5.90) m/uL Hgb (13.0-17.5) gm/dL Hct (39.0-53.0) % Plt Count (150-450) k/uL Lymphocytes # (Manual) (1.0-4.8) k/uL Monocytes # (Manual) (0-1.0) k/uL Nucleated RBCs (0-0) /100 WBC ABG pCO2 (35-45) mmHg ABG pO2 (83-108) mmHg ABG O2 Saturation (94-97) % Sodium (137-145) mmol/L Potassium (3.5-5.1) mmol/L Carbon Dioxide (22-30) mmol/L BUN (9-20) mg/dL Creatinine (0.66-1.25) mg/dL Glucose (74-99) mg/dL POC Glucose (mg/dL) 189 H 208 H 203 H (75-99) mg/dL Hemoglobin A1c (0.0-6.0) % Calcium (8.4-10.2) mg/dL AST (17-59) U/L ALT (4-49) U/L Troponin I (0.000-0.034) ng/mL Total Protein (6.3-8.2) g/dL Albumin (3.5-5.0) g/dL Vitamin B12 (200.0-944.0) pg/mL Urine Protein (Negative) Urine Glucose (UA) (Negative) Urine Ketones (Negative) Urine Blood (Negative) Ur Leukocyte Esterase (Negative) Urine WBC (0-5) /hpf Amorphous Sediment (None) /hpf Urine Bacteria (None) /hpf 10/22/21 Range/Units 09:02 RBC (4.30-5.90) m/uL Hgb (13.0-17.5) gm/dL Hct (39.0-53.0) % Plt Count (150-450) k/uL Lymphocytes # (Manual) (1.0-4.8) k/uL Monocytes # (Manual) (0-1.0) k/uL Nucleated RBCs (0-0) /100 WBC ABG pCO2 (35-45) mmHg ABG pO2 (83-108) mmHg ABG O2 Saturation (94-97) % Sodium (137-145) mmol/L Potassium (3.5-5.1) mmol/L Carbon Dioxide (22-30) mmol/L BUN (9-20) mg/dL Creatinine (0.66-1.25) mg/dL Glucose (74-99) mg/dL POC Glucose (mg/dL) 211 H (75-99) mg/dL Hemoglobin A1c (0.0-6.0) % Calcium (8.4-10.2) mg/dL AST (17-59) U/L ALT (4-49) U/L Troponin I (0.000-0.034) ng/mL Total Protein (6.3-8.2) g/dL Albumin (3.5-5.0) g/dL Vitamin B12 (200.0-944.0) pg/mL Urine Protein (Negative) Urine Glucose (UA) (Negative) Urine Ketones (Negative) Urine Blood (Negative) Ur Leukocyte Esterase (Negative) Urine WBC (0-5) /hpf Amorphous Sediment (None) /hpf Urine Bacteria (None) /hpf Microbiology - Last 24 Hours (Table) 10/21/21 10:37 Blood Culture Gram Stain - Preliminary Blood 10/21/21 10:37 Blood Culture - Final Blood 10/21/21 10:00 Urine Culture - Preliminary Urine,Voided Assessment and Plan Plan: Assessment: 1. Acute kidney injury secondary to ATN secondary to septic shock. Creatinine was 2.59 on admission and is 2.89 today. Nonoliguric. No hydronephrosis noted on kidney ultrasound. 2. Septic shock secondary to gram-positive bacteremia on antibiotics. Infectious disease following. On low-dose Levophed. 3. Chronic kidney disease stage IIIA with baseline creatinine in the range of 1.5-1.7 secondary to diabetic kidney disease. 4. Metabolic acidosis secondary to acute kidney injury. Improved bicarbonate. 5. Hypovolemic hyponatremia improved with IV hydration. Also component of hyperglycemia. 6. Hypokalemia from poor intake and intracellullar shifting from IV bicarb. 7. Diabetes mellitus. Serum acetone positive. Currently on insulin drip. Plan: Stop bicarb drip. Start normal saline at 75 mL an hour. Potassium being replaced. Wean vasopressors. Avoid nephrotoxins. Continue to monitor renal function and urine output. Preserved ejection fraction with moderate LVH noted on echocardiogram. Follow-up cultures.
[2021-10-22] MEDS: SODIUM CHLORIDE 0.9% 1,000 ML IV SCH (10:14)
[2021-10-22] MEDS: NICOTINE 21MG/24HR PATCH TRANSDERM SCH (10:14)
[2021-10-22 11:03] LABS: Glucose,Whole Blood 158 mg/dL (75-99)
[2021-10-22] MEDS: INSULIN REGULAR 100 UNIT in SODIUM CHLORIDE 0.9% 100 ML IV SCH (11:18)
--- NOTE | 2021-10-22 11:21 | P.PN ---
Subjective Progress Note Date: 10/22/21 Principal diagnosis: Rule out sepsis. Pulmonary consult dated 10/21/2021. 55-year-old male with a history of diabetes, type I, hypertension, chronic kidney disease, COPD, dementia, alcohol abuse, and crack cocaine use. The patient presented to the emergency room, with weakness, inability to stand, mental status changes, mild temperature elevation, and confusion. The patient used to see Dr. Monteiro, but now sees a nurse practitioner by the name of Lo Meraz. The patient is seen in the emergency room, room 28. I was called down there by one of my ICU nurses. Apparently the primary care physician thought the patient should be better suited in the intensive care unit for further monitoring and management. I was not called by the primary doctor but rather the nurse. When I went down there, the patient was on room air. He was getting saline bolus at 1 L. Sodium bicarbonate drip had been written for, but the residential designer did not want it started. The patient was not able to give any coherent history. The is at the bedside. She gave most of the history. The patient is on an insulin pump typically for his diabetes. He does use crack cocaine every day, drinks a fifth of vodka every day, and smokes a pack and a half to 2 packs of cigarettes every day. White count 8.6, hemoglobin 11.7, hematocrit 35.5, and platelet count of 127,000. Sodium 128, potassium 3.5, chlorides 97, CO2 14, anion gap 17, BUN 74, creatinine 2.65. Initial lactic acid 1.8. Troponin 0.129. AST 282. ALT 77. Testing for influenza A, and B, both negative. Coronavirus testing was also negative. Urine showed 1+ protein, 4+ glucose, and a positive urine nitrite, positive leukocyte esterase, 13 WBCs, and rare bacteria. Brain CT showed nothing acute. Chest x-ray was normal. The patient's temperature, was 100.9. Progress note dated 10/22/2021. This is a 55-year-old male seen yesterday in the emergency department. He has a history of diabetes, type I, hypertension, chronic kidney disease, COPD, dementia, alcohol abuse, and crack cocaine abuse. The patient presented primarily with weakness, mental status changes, and a temperature elevation, as well as confusion and agitation. Patient was transferred to the intensive care unit for further monitoring and management. Blood gases on 32% show pO2 of 54, pCO2 34, and a pH is 7.42. He is currently high flow nasal cannula. At 10 L. He is also getting saline at 75 mL an hour, insulin at 9 units an hour, and norepinephrine at 2 mcg/m. There were gram-positive cocci in his blood. His current antibiotics include vancomycin, daptomycin, and Zosyn. Currently white count 9.1, hemoglobin 10.1, hematocrit 31.1, and platelet count 99,000. Sodium 131, potassium 2.9, chlorides 99, CO2 22, BUN 73, and creatinine 2.89. Troponin levels were 0.129, and 0.162. Albumin is 2.4. There was no chest x-ray today. Objective - Vital Signs Vital signs: Vital Signs Temp 98.9 F 10/22/21 08:00 Pulse 128 H 10/22/21 11:10 Resp 33 H 10/22/21 11:00 BP 117/59 10/22/21 11:00 Pulse Ox 95 10/22/21 11:00 FiO2 Intake & Output 10/21/21 10/22/21 10/22/21 18:59 06:59 18:59 Intake Total 5146.232 1953.801 1047.309 Output Total 525 425 375 Balance 526.611 2845.801 672.309 Weight 106.594 kg 111.1 kg 111.1 kg Intake: IV 3750 970 .9 @ 20 20 ACETAMINOPHEN IV (For NPO 100 ) 1,000 mg In Empty Bag 1 bag @ 400 mls/hr IVPB ONCE [facility] Rx#:[id number] DAPTOmycin 500 mg In 50 Sodium Chloride 0.9% 50 ml @ 100 mls/hr IVPB Q48H [facility] Rx#:[id number] Dextrose 5% in Water 1, 1100 300 000 ml @ 100 mls/hr IV . [id number] [facility] with Sodium Bicarb (1 Meq/ml) 150 ml Rx#:[id number] Lactated Ringers 1,000 ml 2000 @ 999 mls/hr IV .Q1H1M [facility] Rx#:[id number] Piperacillin-Tazobactam 3 100 100 .375 gm In Sodium Chloride 0.9% 100 ml @ 25 mls/hr IVPB Q8HR [facility] Rx# :[id number] Potassium Chloride 10 meq 400 400 In Water For Injection 1 100ml.bag @ 100 mls/hr IVPB Q1HR [facility] Rx#: [id number] Sodium Chloride 0.9% 1, 150 000 ml @ 75 mls/hr IV . [id number] [facility] Rx#:[id number] Intake, IV Titration 1159.536 208.801 77.309 Amount ACETAMINOPHEN IV (For NPO 100 ) 1,000 mg In Empty Bag 1 bag @ 400 mls/hr IVPB ONCE STA Rx#:[id number] Dextrose 5% in Water 1, 300 100 000 ml @ 100 mls/hr IV . [id number] [facility] with Sodium Bicarb (1 Meq/ml) 50 ml Rx#:[id number] Dextrose 5% in Water 1, 100 000 ml @ 100 mls/hr IV . [id number] [facility] with Sodium Bicarb (1 Meq/ml) 150 ml Rx#:[id number] Insulin Regular 100 unit 59.536 68.663 26.950 In Sodium Chloride 0.9% 100 ml @ Per Protocol IV .Q0M [facility] Rx#:[id number] Magnesium Sulfate-D5w Pmx 300 1 gm In Dextrose/Water 1 100ml.bag @ 100 mls/hr IVPB Q1H [facility] Rx#: [id number] Norepinephrine 4 mg In 40.138 50.359 Sodium Chloride 0.9% 250 ml @ 0.05 MCG/KG/MIN 20. 306 mls/hr IV .[id number] [facility] Rx#:[id number] Piperacillin-Tazobactam 3 100 .375 gm In Sodium Chloride 0.9% 100 ml @ 25 mls/hr IVPB Q8HR [facility] Rx# :[id number] Potassium Chloride 10 meq 200 In Water For Injection 1 100ml.bag @ 100 mls/hr IVPB Q1HR [facility] Rx#: [id number] Output: Urine 525 425 375 Other: Voiding Method Indwelling Catheter Indwelling Catheter Indwelling Catheter # Bowel Movements 1 - Exam Confused, unable to give any additional history. A bit agitated. Probable active withdrawal symptoms. HEENT examination is grossly unremarkable. Neck supple. Full range of motion. No adenopathy thyromegaly or neck vein distention. Cardiovascular examination reveals regular rhythm rate. S1-S2 normal. No S3 or S4. No discernible murmur noted. Heart rate 128 bpm. Lungs reveal scattered bilateral rhonchi. Breath sounds equal. No wheezes. Room air saturation 95%. Abdomen is obese. No bowel sounds. No tenderness. No masses. Extremities are intact. No cyanosis clubbing or edema. Skin is without rash or lesion. Neurologic examination cannot be properly assessed. He does move all 4 extremities. He is quite agitated. Unable to give any additional history. - Labs CBC & Chem 7: 10/22/21 05:21 10/22/21 05:21 Labs: Abnormal Lab Results - Last 24 Hours (Table) 10/21/21 10/21/21 10/21/21 Range/Units 10:43 11:24 12:14 RBC (4.30-5.90) m/uL Hgb (13.0-17.5) gm/dL Hct (39.0-53.0) % Plt Count (150-450) k/uL Lymphocytes # (Manual) (1.0-4.8) k/uL ABG pCO2 (35-45) mmHg ABG pO2 (83-108) mmHg ABG O2 Saturation (94-97) % Sodium (137-145) mmol/L Potassium (3.5-5.1) mmol/L Carbon Dioxide (22-30) mmol/L BUN (9-20) mg/dL Creatinine (0.66-1.25) mg/dL Glucose (74-99) mg/dL POC Glucose (mg/dL) 562 H 480 H (75-99) mg/dL Hemoglobin A1c (0.0-6.0) % Calcium (8.4-10.2) mg/dL AST (17-59) U/L ALT (4-49) U/L Troponin I 0.140 H* (0.000-0.034) ng/mL Total Protein (6.3-8.2) g/dL Albumin (3.5-5.0) g/dL Vitamin B12 (200.0-944.0) pg/mL 10/21/21 10/21/21 10/21/21 Range/Units 13:09 14:01 14:58 RBC (4.30-5.90) m/uL Hgb (13.0-17.5) gm/dL Hct (39.0-53.0) % Plt Count (150-450) k/uL Lymphocytes # (Manual) (1.0-4.8) k/uL ABG pCO2 (35-45) mmHg ABG pO2 (83-108) mmHg ABG O2 Saturation (94-97) % Sodium (137-145) mmol/L Potassium (3.5-5.1) mmol/L Carbon Dioxide (22-30) mmol/L BUN (9-20) mg/dL Creatinine (0.66-1.25) mg/dL Glucose (74-99) mg/dL POC Glucose (mg/dL) 393 H 366 H 320 H (75-99) mg/dL Hemoglobin A1c (0.0-6.0) % Calcium (8.4-10.2) mg/dL AST (17-59) U/L ALT (4-49) U/L Troponin I (0.000-0.034) ng/mL Total Protein (6.3-8.2) g/dL Albumin (3.5-5.0) g/dL Vitamin B12 (200.0-944.0) pg/mL 10/21/21 10/21/21 10/21/21 Range/Units 15:29 15:29 15:29 RBC (4.30-5.90) m/uL Hgb (13.0-17.5) gm/dL Hct (39.0-53.0) % Plt Count (150-450) k/uL Lymphocytes # (Manual) (1.0-4.8) k/uL ABG pCO2 (35-45) mmHg ABG pO2 (83-108) mmHg ABG O2 Saturation (94-97) % Sodium 129 L (137-145) mmol/L Potassium 2.9 L (3.5-5.1) mmol/L Carbon Dioxide 19 L (22-30) mmol/L BUN 73 H (9-20) mg/dL Creatinine 2.82 H (0.66-1.25) mg/dL Glucose 268 H (74-99) mg/dL POC Glucose (mg/dL) (75-99) mg/dL Hemoglobin A1c 9.6 H (0.0-6.0) % Calcium 7.7 L (8.4-10.2) mg/dL AST (17-59) U/L ALT (4-49) U/L Troponin I 0.162 H* (0.000-0.034) ng/mL Total Protein (6.3-8.2) g/dL Albumin (3.5-5.0) g/dL Vitamin B12 1482.0 H (200.0-944.0) pg/mL 10/21/21 10/21/21 10/21/21 Range/Units 16:23 17:03 17:55 RBC (4.30-5.90) m/uL Hgb (13.0-17.5) gm/dL Hct (39.0-53.0) % Plt Count (150-450) k/uL Lymphocytes # (Manual) (1.0-4.8) k/uL ABG pCO2 (35-45) mmHg ABG pO2 (83-108) mmHg ABG O2 Saturation (94-97) % Sodium (137-145) mmol/L Potassium (3.5-5.1) mmol/L Carbon Dioxide (22-30) mmol/L BUN (9-20) mg/dL Creatinine (0.66-1.25) mg/dL Glucose (74-99) mg/dL POC Glucose (mg/dL) 271 H 238 H 227 H (75-99) mg/dL Hemoglobin A1c (0.0-6.0) % Calcium (8.4-10.2) mg/dL AST (17-59) U/L ALT (4-49) U/L Troponin I (0.000-0.034) ng/mL Total Protein (6.3-8.2) g/dL Albumin (3.5-5.0) g/dL Vitamin B12 (200.0-944.0) pg/mL 10/21/21 10/21/21 10/21/21 Range/Units 19:07 19:55 20:55 RBC (4.30-5.90) m/uL Hgb (13.0-17.5) gm/dL Hct (39.0-53.0) % Plt Count (150-450) k/uL Lymphocytes # (Manual) (1.0-4.8) k/uL ABG pCO2 (35-45) mmHg ABG pO2 (83-108) mmHg ABG O2 Saturation (94-97) % Sodium (137-145) mmol/L Potassium (3.5-5.1) mmol/L Carbon Dioxide (22-30) mmol/L BUN (9-20) mg/dL Creatinine (0.66-1.25) mg/dL Glucose (74-99) mg/dL POC Glucose (mg/dL) 191 H 202 H 215 H (75-99) mg/dL Hemoglobin A1c (0.0-6.0) % Calcium (8.4-10.2) mg/dL AST (17-59) U/L ALT (4-49) U/L Troponin I (0.000-0.034) ng/mL Total Protein (6.3-8.2) g/dL Albumin (3.5-5.0) g/dL Vitamin B12 (200.0-944.0) pg/mL 10/21/21 10/21/21 10/21/21 Range/Units 22:00 23:03 23:58 RBC (4.30-5.90) m/uL Hgb (13.0-17.5) gm/dL Hct (39.0-53.0) % Plt Count (150-450) k/uL Lymphocytes # (Manual) (1.0-4.8) k/uL ABG pCO2 (35-45) mmHg ABG pO2 (83-108) mmHg ABG O2 Saturation (94-97) % Sodium (137-145) mmol/L Potassium (3.5-5.1) mmol/L Carbon Dioxide (22-30) mmol/L BUN (9-20) mg/dL Creatinine (0.66-1.25) mg/dL Glucose (74-99) mg/dL POC Glucose (mg/dL) 222 H 222 H 208 H (75-99) mg/dL Hemoglobin A1c (0.0-6.0) % Calcium (8.4-10.2) mg/dL AST (17-59) U/L ALT (4-49) U/L Troponin I (0.000-0.034) ng/mL Total Protein (6.3-8.2) g/dL Albumin (3.5-5.0) g/dL Vitamin B12 (200.0-944.0) pg/mL 10/22/21 10/22/21 10/22/21 Range/Units 00:36 00:52 01:52 RBC (4.30-5.90) m/uL Hgb (13.0-17.5) gm/dL Hct (39.0-53.0) % Plt Count (150-450) k/uL Lymphocytes # (Manual) (1.0-4.8) k/uL ABG pCO2 34 L (35-45) mmHg ABG pO2 54 L* (83-108) mmHg ABG O2 Saturation 90.6 L (94-97) % Sodium (137-145) mmol/L Potassium (3.5-5.1) mmol/L Carbon Dioxide (22-30) mmol/L BUN (9-20) mg/dL Creatinine (0.66-1.25) mg/dL Glucose (74-99) mg/dL POC Glucose (mg/dL) 145 H 164 H (75-99) mg/dL Hemoglobin A1c (0.0-6.0) % Calcium (8.4-10.2) mg/dL AST (17-59) U/L ALT (4-49) U/L Troponin I (0.000-0.034) ng/mL Total Protein (6.3-8.2) g/dL Albumin (3.5-5.0) g/dL Vitamin B12 (200.0-944.0) pg/mL 10/22/21 10/22/21 10/22/21 Range/Units 02:53 03:52 04:56 RBC (4.30-5.90) m/uL Hgb (13.0-17.5) gm/dL Hct (39.0-53.0) % Plt Count (150-450) k/uL Lymphocytes # (Manual) (1.0-4.8) k/uL ABG pCO2 (35-45) mmHg ABG pO2 (83-108) mmHg ABG O2 Saturation (94-97) % Sodium (137-145) mmol/L Potassium (3.5-5.1) mmol/L Carbon Dioxide (22-30) mmol/L BUN (9-20) mg/dL Creatinine (0.66-1.25) mg/dL Glucose (74-99) mg/dL POC Glucose (mg/dL) 143 H 138 H 179 H (75-99) mg/dL Hemoglobin A1c (0.0-6.0) % Calcium (8.4-10.2) mg/dL AST (17-59) U/L ALT (4-49) U/L Troponin I (0.000-0.034) ng/mL Total Protein (6.3-8.2) g/dL Albumin (3.5-5.0) g/dL Vitamin B12 (200.0-944.0) pg/mL 10/22/21 10/22/21 10/22/21 Range/Units 05:21 05:21 05:26 RBC 3.15 L (4.30-5.90) m/uL Hgb 10.1 L (13.0-17.5) gm/dL Hct 31.1 L (39.0-53.0) % Plt Count 99 L (150-450) k/uL Lymphocytes # (Manual) 0.73 L (1.0-4.8) k/uL ABG pCO2 (35-45) mmHg ABG pO2 (83-108) mmHg ABG O2 Saturation (94-97) % Sodium 131 L (137-145) mmol/L Potassium 2.9 L (3.5-5.1) mmol/L Carbon Dioxide (22-30) mmol/L BUN 73 H (9-20) mg/dL Creatinine 2.89 H (0.66-1.25) mg/dL Glucose 191 H (74-99) mg/dL POC Glucose (mg/dL) 185 H (75-99) mg/dL Hemoglobin A1c (0.0-6.0) % Calcium 7.2 L (8.4-10.2) mg/dL AST 225 H (17-59) U/L ALT 85 H (4-49) U/L Troponin I (0.000-0.034) ng/mL Total Protein 5.1 L (6.3-8.2) g/dL Albumin 2.4 L (3.5-5.0) g/dL Vitamin B12 (200.0-944.0) pg/mL 10/22/21 10/22/21 10/22/21 Range/Units 05:55 06:54 07:44 RBC (4.30-5.90) m/uL Hgb (13.0-17.5) gm/dL Hct (39.0-53.0) % Plt Count (150-450) k/uL Lymphocytes # (Manual) (1.0-4.8) k/uL ABG pCO2 (35-45) mmHg ABG pO2 (83-108) mmHg ABG O2 Saturation (94-97) % Sodium (137-145) mmol/L Potassium (3.5-5.1) mmol/L Carbon Dioxide (22-30) mmol/L BUN (9-20) mg/dL Creatinine (0.66-1.25) mg/dL Glucose (74-99) mg/dL POC Glucose (mg/dL) 189 H 208 H 203 H (75-99) mg/dL Hemoglobin A1c (0.0-6.0) % Calcium (8.4-10.2) mg/dL AST (17-59) U/L ALT (4-49) U/L Troponin I (0.000-0.034) ng/mL Total Protein (6.3-8.2) g/dL Albumin (3.5-5.0) g/dL Vitamin B12 (200.0-944.0) pg/mL 10/22/21 10/22/21 10/22/21 Range/Units 09:02 10:11 11:01 RBC (4.30-5.90) m/uL Hgb (13.0-17.5) gm/dL Hct (39.0-53.0) % Plt Count (150-450) k/uL Lymphocytes # (Manual) (1.0-4.8) k/uL ABG pCO2 (35-45) mmHg ABG pO2 (83-108) mmHg ABG O2 Saturation (94-97) % Sodium (137-145) mmol/L Potassium (3.5-5.1) mmol/L Carbon Dioxide (22-30) mmol/L BUN (9-20) mg/dL Creatinine (0.66-1.25) mg/dL Glucose (74-99) mg/dL POC Glucose (mg/dL) 211 H 156 H 158 H (75-99) mg/dL Hemoglobin A1c (0.0-6.0) % Calcium (8.4-10.2) mg/dL AST (17-59) U/L ALT (4-49) U/L Troponin I (0.000-0.034) ng/mL Total Protein (6.3-8.2) g/dL Albumin (3.5-5.0) g/dL Vitamin B12 (200.0-944.0) pg/mL Microbiology - Last 24 Hours (Table) 10/21/21 10:37 Blood Culture Gram Stain - Preliminary Blood Blood Culture - Preliminary Staphylococcus aureus 10/21/21 10:37 Blood Culture - Final Blood 10/21/21 10:00 Urine Culture - Preliminary Urine,Voided Assessment and Plan Assessment: Mental status changes, confusion, and agitation, with elevated blood sugars, and possible underlying sepsis/urinary tract infection. Delirium tremens History of type 1 diabetes mellitus, managed with insulin. Anion gap metabolic acidosis, likely related to kidney injury, and/or DKA. Elevated troponin level. History of chronic kidney disease. History of COPD from ongoing and heavy tobacco use. History of dementia. History of chronic alcohol abuse, drinking 1/5 of vodka daily. Daily crack cocaine use. Dilutional hyponatremia. Plan: Plan dated 10/21/2021. The patient will be transferred to the intensive care unit for further monitoring and management. The patient be given fluids and an insulin drip. The patient should be started on antibiotics. Labs x-rays, and medications are all reviewed. Prognosis is certainly guarded. The patient may have significant withdrawal-like symptoms given his chronic tobacco, alcohol, and crack cocaine use. We will continue to follow make recommendations where appropriate. Prognosis is certainly guarded. Plan dated 10/22/2021. The patient's blood cultures show gram-positive cocci. The patient remains on vancomycin, daptomycin, and Zosyn for now. Infectious diseases will be consulted for additional recommendations regarding antibiotic management. Labs, x-rays, and medications are reviewed. The patient's overall prognosis remains free guarded. We will continue to follow make recommendations where appropriate. The patient remains on insulin drip, saline, and norepinephrine. Time with Patient: Greater than 30
[2021-10-22 12:06] LABS: Glucose,Whole Blood 98 mg/dL (75-99)
--- NOTE | 2021-10-22 12:53 | P.PN ---
Subjective Progress Note Date: 10/22/21 HISTORY OF PRESENT ILLNESS This is a 55-year-old male patient of Dr. Fischer with past medical history of diabetes mellitus on insulin pump, hypertension, seizure disorder, gastroesophag eal reflux disease, generalized anxiety disorder, tobacco use and dependence, alcohol abuse suspected. Patient is able to state that he has not felt well for 3 days and insulin pump is not in place. He is a poor historian and unable to give accurate information. Patient's is on her way to the hospital. He was brought in to the emergency center by EMS for generalized weakness. Patient was too weak apparently to get off the floor after a fall. Patient was found to be febrile at 101.6, heart rate 134, blood pressure 120/98, respiratory rate 36, pulse ox 99% on 2 L. WBC 9.8, hemoglobin 11.7, platelet count 140. Sodium 124, potassium 3.7, chloride 92, CO2 19, BUN 71 and creatinine 2.59. Blood sugar 331 and subsequent blood glucose 484 and 547. Lactic acid 1.8. Calcium 8.3. Magnesium 1.6. Troponin is 0.129. Albumin 3.4. AST 282, ALT 77, alkaline phosphatase 85. Influenza a not detected, influenza B not detected, RSV not detected, SARS Covid to not detected. Chest x-ray revealed no acute cardiopulmonary process. CAT scan of the brain revealed no acute process. Encephalomalacia of the right temporal lobe similar to 2018. Patient is seen today in the emergency center waiting for a bed, we will change bed assignment to intensive care unit, and additional lab work ordered including alcohol level, acetone, blood culture, consults added for cardiology for tachycardia, elevated troponins, accounting specialist for ICU management, neurology for metabolic encephalopathy and infectious disease. Patient started on empiric antibiotics with Zosyn, patient started on CIWA protocol. He is currently on bicarbonate drip with 1 amp 100 mL per hour. 10/22: Patient is in bed in moderate distress in the ICU, at the bedside. Per the the patient drinks approximately applied to the fifth daily. Patient is tachycardic/ tachypenic, urinary output 60 ML's per hour and indwelling catheter. Blood culture is positive for staph aureus. Blood gases on 32% show pO2 of 54, pCO2 34, and a pH is 7.42. He is currently high flow nasal cannula. At 10 L. He is also getting saline at 75 mL an hour, insulin at 9 units an hour, and norepinephrine at 2 mcg/m. His current antibiotics include vancomycin, daptomycin, and Zosyn. Currently white count 9.1, hemoglobin 10.1, hematocrit 31.1, and platelet count 99,000. Sodium 131, potassium 2.9, chlo rides 99, CO2 22, BUN 73, and creatinine 2.89. Troponin levels were 0.129, and 0.162. Albumin is 2.4. REVIEW OF SYSTEMS Unable to obtain due to patient's mental status. PHYSICAL EXAMINATION Gen: This is a morbidly obese 55-year-old male. Found in ICU bed with at bedside in moderate distress. Unable to answer questions HEENT: Head is atraumatic, normocephalic. Pupils equal, round. Sclerae is anicteric. Patient does not smell of acetone/alcohol. NECK: Supple. No JVD. No lymphadenopathy. No thyromegaly. LUNGS: Diminished with a few scattered rhonchi. No intercostal retractions. HEART: Regular rate and rhythm. No murmur. ABDOMEN: Soft. Bowel sounds are present. No masses. No tenderness. EXTREMITIES: No pedal edema. No calf tenderness. SKIN: No skin lesions noted, no ulcers, no wounds, no areas of erythema. NEUROLOGICAL: Patient is not alert and unable to provide information, unable to follow clear directions. ASSESSMENT AND PLAN 1. Sepsis with fever, tachycardia, tachypnea of unclear etiology. Admit patient to the intensive care unit and consult with accounting specialist. Patient will be started on empiric antibiotics with Zosyn. Urine culture and blood culture to be obtained. Positive blood cultures. Consult with Dr. Ashford appreciated. 2. Metabolic encephalopathy of unclear etiology. Consult with neurology appreciated. 3. Possible impending delirium tremors. Patient started on CIWA will call with Ativan, thiamine, obtain alcohol level. 4. Hyperglycemic state and patient with diabetes mellitus type 1 insulin requiring. Patient is not on insulin pump. Patient started on insulin drip. Obtain acetone level. 5. Acute kidney injury with chronic kidney disease stage III. Consult with nephrology appreciated. Patient on bicarb drip, check urinalysis, renal ultrasound and repeat labs, hold on FAITH inhibitor. 6. Anion gap metabolic acidosis secondary to acute kidney injury. Rule out DKA. Acetone level has been ordered. 7. Tachycardia most likely secondary to sepsis. Cardiology consult. 8. Elevated troponins. Cardiology consult cardiology consult appreciated. Echocardiogram ordered, repeat troponins. 9. Thrombocytopenia most likely secondary to sepsis. Continue to monitor. 10. Hyponatremia. Nephrology following.. 11. Hypertension. Hold lisinopril 20 mg daily. 12. Dementia. Continue Aricept 10 mg daily. 13. Hyperlipidemia. Continue Lipitor 40 mg daily. 14. Gastroesophageal reflux disease and GI prophylaxis. Protonix 40 mg IV daily. 15. History of acute respiratory failure requiring intubation secondary to polysubstance abuse which included narcotics and alcohol. 16. History of liver cirrhosis secondary to alcohol abuse. 17. History of Seizure disorder. Patient does not appear to be on Keppra anymore. 18. Generalized anxiety disorder and recurrent depression. Patient will be admitted to the hospital for a minimum of 2 night stay. Prognosis guarded. DISCHARGE PLAN To be determined. Impression and plan of care have been directed as dictated by the signing physician. Leslee Mcintosh nurse practitioner acting as scribe for signing physician. Objective - Vital Signs Vital signs: Vital Signs Temp 103.1 F H 10/22/21 12:00 Pulse 152 H 10/22/21 12:00 Resp 40 H 10/22/21 12:00 BP 152/114 10/22/21 12:00 Pulse Ox 97 10/22/21 12:00 FiO2 Intake & Output 10/21/21 10/22/21 10/22/21 18:59 06:59 18:59 Intake Total 3542.161 3646.801 1239.001 Output Total 525 425 450 Balance 267.571 7917.801 789.001 Weight 106.594 kg 111.1 kg 111.1 kg Intake: IV 3750 1145 .9 @ 20 20 ACETAMINOPHEN IV (For NPO 100 ) 1,000 mg In Empty Bag 1 bag @ 400 mls/hr IVPB ONCE [facility] Rx#:[id number] DAPTOmycin 500 mg In 50 Sodium Chloride 0.9% 50 ml @ 100 mls/hr IVPB Q48H [facility] Rx#:[id number] Dextrose 5% in Water 1, 1100 300 000 ml @ 100 mls/hr IV . [id number] [facility] with Sodium Bicarb (1 Meq/ml) 150 ml Rx#:[id number] Lactated Ringers 1,000 ml 2000 @ 999 mls/hr IV .Q1H1M [facility] Rx#:[id number] Piperacillin-Tazobactam 3 100 100 .375 gm In Sodium Chloride 0.9% 100 ml @ 25 mls/hr IVPB Q8HR [facility] Rx# :[id number] Potassium Chloride 10 meq 400 500 In Water For Injection 1 100ml.bag @ 100 mls/hr IVPB Q1HR [facility] Rx#: [id number] Sodium Chloride 0.9% 1, 225 000 ml @ 75 mls/hr IV . [id number] [facility] Rx#:[id number] Intake, IV Titration 1159.536 208.801 94.001 Amount ACETAMINOPHEN IV (For NPO 100 ) 1,000 mg In Empty Bag 1 bag @ 400 mls/hr IVPB ONCE STA Rx#:[id number] Dextrose 5% in Water 1, 300 100 000 ml @ 100 mls/hr IV . [id number] [facility] with Sodium Bicarb (1 Meq/ml) 50 ml Rx#:[id number] Dextrose 5% in Water 1, 100 000 ml @ 100 mls/hr IV . [id number] [facility] with Sodium Bicarb (1 Meq/ml) 150 ml Rx#:[id number] Insulin Regular 100 unit 59.536 68.663 38.363 In Sodium Chloride 0.9% 100 ml @ Per Protocol IV .Q0M [facility] Rx#:[id number] Magnesium Sulfate-D5w Pmx 300 1 gm In Dextrose/Water 1 100ml.bag @ 100 mls/hr IVPB Q1H [facility] Rx#: [id number] Norepinephrine 4 mg In 40.138 55.638 Sodium Chloride 0.9% 250 ml @ 0.05 MCG/KG/MIN 20. 306 mls/hr IV .[id number] [facility] Rx#:[id number] Piperacillin-Tazobactam 3 100 .375 gm In Sodium Chloride 0.9% 100 ml @ 25 mls/hr IVPB Q8HR [facility] Rx# :[id number] Potassium Chloride 10 meq 200 In Water For Injection 1 100ml.bag @ 100 mls/hr IVPB Q1HR [facility] Rx#: [id number] Output: Urine 525 425 450 Other: Voiding Method Indwelling Catheter Indwelling Catheter Indwelling Catheter # Bowel Movements 1 - Labs CBC & Chem 7: 10/22/21 05:21 10/22/21 05:21 Labs: Abnormal Lab Results - Last 24 Hours (Table) 10/21/21 10/21/21 10/21/21 Range/Units 13:09 14:01 14:58 RBC (4.30-5.90) m/uL Hgb (13.0-17.5) gm/dL Hct (39.0-53.0) % Plt Count (150-450) k/uL Lymphocytes # (Manual) (1.0-4.8) k/uL ABG pCO2 (35-45) mmHg ABG pO2 (83-108) mmHg ABG O2 Saturation (94-97) % Sodium (137-145) mmol/L Potassium (3.5-5.1) mmol/L Carbon Dioxide (22-30) mmol/L BUN (9-20) mg/dL Creatinine (0.66-1.25) mg/dL Glucose (74-99) mg/dL POC Glucose (mg/dL) 393 H 366 H 320 H (75-99) mg/dL Hemoglobin A1c (0.0-6.0) % Calcium (8.4-10.2) mg/dL AST (17-59) U/L ALT (4-49) U/L Troponin I (0.000-0.034) ng/mL Total Protein (6.3-8.2) g/dL Albumin (3.5-5.0) g/dL Vitamin B12 (200.0-944.0) pg/mL 10/21/21 10/21/21 10/21/21 Range/Units 15:29 15:29 15:29 RBC (4.30-5.90) m/uL Hgb (13.0-17.5) gm/dL Hct (39.0-53.0) % Plt Count (150-450) k/uL Lymphocytes # (Manual) (1.0-4.8) k/uL ABG pCO2 (35-45) mmHg ABG pO2 (83-108) mmHg ABG O2 Saturation (94-97) % Sodium 129 L (137-145) mmol/L Potassium 2.9 L (3.5-5.1) mmol/L Carbon Dioxide 19 L (22-30) mmol/L BUN 73 H (9-20) mg/dL Creatinine 2.82 H (0.66-1.25) mg/dL Glucose 268 H (74-99) mg/dL POC Glucose (mg/dL) (75-99) mg/dL Hemoglobin A1c 9.6 H (0.0-6.0) % Calcium 7.7 L (8.4-10.2) mg/dL AST (17-59) U/L ALT (4-49) U/L Troponin I 0.162 H* (0.000-0.034) ng/mL Total Protein (6.3-8.2) g/dL Albumin (3.5-5.0) g/dL Vitamin B12 1482.0 H (200.0-944.0) pg/mL 10/21/21 10/21/21 10/21/21 Range/Units 16:23 17:03 17:55 RBC (4.30-5.90) m/uL Hgb (13.0-17.5) gm/dL Hct (39.0-53.0) % Plt Count (150-450) k/uL Lymphocytes # (Manual) (1.0-4.8) k/uL ABG pCO2 (35-45) mmHg ABG pO2 (83-108) mmHg ABG O2 Saturation (94-97) % Sodium (137-145) mmol/L Potassium (3.5-5.1) mmol/L Carbon Dioxide (22-30) mmol/L BUN (9-20) mg/dL Creatinine (0.66-1.25) mg/dL Glucose (74-99) mg/dL POC Glucose (mg/dL) 271 H 238 H 227 H (75-99) mg/dL Hemoglobin A1c (0.0-6.0) % Calcium (8.4-10.2) mg/dL AST (17-59) U/L ALT (4-49) U/L Troponin I (0.000-0.034) ng/mL Total Protein (6.3-8.2) g/dL Albumin (3.5-5.0) g/dL Vitamin B12 (200.0-944.0) pg/mL 10/21/21 10/21/21 10/21/21 Range/Units 19:07 19:55 20:55 RBC (4.30-5.90) m/uL Hgb (13.0-17.5) gm/dL Hct (39.0-53.0) % Plt Count (150-450) k/uL Lymphocytes # (Manual) (1.0-4.8) k/uL ABG pCO2 (35-45) mmHg ABG pO2 (83-108) mmHg ABG O2 Saturation (94-97) % Sodium (137-145) mmol/L Potassium (3.5-5.1) mmol/L Carbon Dioxide (22-30) mmol/L BUN (9-20) mg/dL Creatinine (0.66-1.25) mg/dL Glucose (74-99) mg/dL POC Glucose (mg/dL) 191 H 202 H 215 H (75-99) mg/dL Hemoglobin A1c (0.0-6.0) % Calcium (8.4-10.2) mg/dL AST (17-59) U/L ALT (4-49) U/L Troponin I (0.000-0.034) ng/mL Total Protein (6.3-8.2) g/dL Albumin (3.5-5.0) g/dL Vitamin B12 (200.0-944.0) pg/mL 10/21/21 10/21/21 10/21/21 Range/Units 22:00 23:03 23:58 RBC (4.30-5.90) m/uL Hgb (13.0-17.5) gm/dL Hct (39.0-53.0) % Plt Count (150-450) k/uL Lymphocytes # (Manual) (1.0-4.8) k/uL ABG pCO2 (35-45) mmHg ABG pO2 (83-108) mmHg ABG O2 Saturation (94-97) % Sodium (137-145) mmol/L Potassium (3.5-5.1) mmol/L Carbon Dioxide (22-30) mmol/L BUN (9-20) mg/dL Creatinine (0.66-1.25) mg/dL Glucose (74-99) mg/dL POC Glucose (mg/dL) 222 H 222 H 208 H (75-99) mg/dL Hemoglobin A1c (0.0-6.0) % Calcium (8.4-10.2) mg/dL AST (17-59) U/L ALT (4-49) U/L Troponin I (0.000-0.034) ng/mL Total Protein (6.3-8.2) g/dL Albumin (3.5-5.0) g/dL Vitamin B12 (200.0-944.0) pg/mL 10/22/21 10/22/21 10/22/21 Range/Units 00:36 00:52 01:52 RBC (4.30-5.90) m/uL Hgb (13.0-17.5) gm/dL Hct (39.0-53.0) % Plt Count (150-450) k/uL Lymphocytes # (Manual) (1.0-4.8) k/uL ABG pCO2 34 L (35-45) mmHg ABG pO2 54 L* (83-108) mmHg ABG O2 Saturation 90.6 L (94-97) % Sodium (137-145) mmol/L Potassium (3.5-5.1) mmol/L Carbon Dioxide (22-30) mmol/L BUN (9-20) mg/dL Creatinine (0.66-1.25) mg/dL Glucose (74-99) mg/dL POC Glucose (mg/dL) 145 H 164 H (75-99) mg/dL Hemoglobin A1c (0.0-6.0) % Calcium (8.4-10.2) mg/dL AST (17-59) U/L ALT (4-49) U/L Troponin I (0.000-0.034) ng/mL Total Protein (6.3-8.2) g/dL Albumin (3.5-5.0) g/dL Vitamin B12 (200.0-944.0) pg/mL 10/22/21 10/22/21 10/22/21 Range/Units 02:53 03:52 04:56 RBC (4.30-5.90) m/uL Hgb (13.0-17.5) gm/dL Hct (39.0-53.0) % Plt Count (150-450) k/uL Lymphocytes # (Manual) (1.0-4.8) k/uL ABG pCO2 (35-45) mmHg ABG pO2 (83-108) mmHg ABG O2 Saturation (94-97) % Sodium (137-145) mmol/L Potassium (3.5-5.1) mmol/L Carbon Dioxide (22-30) mmol/L BUN (9-20) mg/dL Creatinine (0.66-1.25) mg/dL Glucose (74-99) mg/dL POC Glucose (mg/dL) 143 H 138 H 179 H (75-99) mg/dL Hemoglobin A1c (0.0-6.0) % Calcium (8.4-10.2) mg/dL AST (17-59) U/L ALT (4-49) U/L Troponin I (0.000-0.034) ng/mL Total Protein (6.3-8.2) g/dL Albumin (3.5-5.0) g/dL Vitamin B12 (200.0-944.0) pg/mL 10/22/21 10/22/21 10/22/21 Range/Units 05:21 05:21 05:26 RBC 3.15 L (4.30-5.90) m/uL Hgb 10.1 L (13.0-17.5) gm/dL Hct 31.1 L (39.0-53.0) % Plt Count 99 L (150-450) k/uL Lymphocytes # (Manual) 0.73 L (1.0-4.8) k/uL ABG pCO2 (35-45) mmHg ABG pO2 (83-108) mmHg ABG O2 Saturation (94-97) % Sodium 131 L (137-145) mmol/L Potassium 2.9 L (3.5-5.1) mmol/L Carbon Dioxide (22-30) mmol/L BUN 73 H (9-20) mg/dL Creatinine 2.89 H (0.66-1.25) mg/dL Glucose 191 H (74-99) mg/dL POC Glucose (mg/dL) 185 H (75-99) mg/dL Hemoglobin A1c (0.0-6.0) % Calcium 7.2 L (8.4-10.2) mg/dL AST 225 H (17-59) U/L ALT 85 H (4-49) U/L Troponin I (0.000-0.034) ng/mL Total Protein 5.1 L (6.3-8.2) g/dL Albumin 2.4 L (3.5-5.0) g/dL Vitamin B12 (200.0-944.0) pg/mL 10/22/21 10/22/21 10/22/21 Range/Units 05:55 06:54 07:44 RBC (4.30-5.90) m/uL Hgb (13.0-17.5) gm/dL Hct (39.0-53.0) % Plt Count (150-450) k/uL Lymphocytes # (Manual) (1.0-4.8) k/uL ABG pCO2 (35-45) mmHg ABG pO2 (83-108) mmHg ABG O2 Saturation (94-97) % Sodium (137-145) mmol/L Potassium (3.5-5.1) mmol/L Carbon Dioxide (22-30) mmol/L BUN (9-20) mg/dL Creatinine (0.66-1.25) mg/dL Glucose (74-99) mg/dL POC Glucose (mg/dL) 189 H 208 H 203 H (75-99) mg/dL Hemoglobin A1c (0.0-6.0) % Calcium (8.4-10.2) mg/dL AST (17-59) U/L ALT (4-49) U/L Troponin I (0.000-0.034) ng/mL Total Protein (6.3-8.2) g/dL Albumin (3.5-5.0) g/dL Vitamin B12 (200.0-944.0) pg/mL 10/22/21 10/22/21 10/22/21 Range/Units 09:02 10:11 11:01 RBC (4.30-5.90) m/uL Hgb (13.0-17.5) gm/dL Hct (39.0-53.0) % Plt Count (150-450) k/uL Lymphocytes # (Manual) (1.0-4.8) k/uL ABG pCO2 (35-45) mmHg ABG pO2 (83-108) mmHg ABG O2 Saturation (94-97) % Sodium (137-145) mmol/L Potassium (3.5-5.1) mmol/L Carbon Dioxide (22-30) mmol/L BUN (9-20) mg/dL Creatinine (0.66-1.25) mg/dL Glucose (74-99) mg/dL POC Glucose (mg/dL) 211 H 156 H 158 H (75-99) mg/dL Hemoglobin A1c (0.0-6.0) % Calcium (8.4-10.2) mg/dL AST (17-59) U/L ALT (4-49) U/L Troponin I (0.000-0.034) ng/mL Total Protein (6.3-8.2) g/dL Albumin (3.5-5.0) g/dL Vitamin B12 (200.0-944.0) pg/mL Microbiology - Last 24 Hours (Table) 10/21/21 10:37 Blood Culture Gram Stain - Preliminary Blood Blood Culture - Preliminary Staphylococcus aureus 10/21/21 10:37 Blood Culture - Final Blood 10/21/21 10:00 Urine Culture - Preliminary Urine,Voided
[2021-10-22 13:03] LABS: Glucose,Whole Blood 117 mg/dL (75-99)
[2021-10-22 13:25] LABS: ABG Base Excess -1.5 mmol/L; ABG HCO3 23 mmol/L (21-25); ABG PCO2 33 mmHg (35-45); ABG PH 7.45 (7.35-7.45); ABG PO2 69 mmHg (83-108); ABG TCO2 24 mmol/L (19-24); Allen Test Performed? Yes
[2021-10-22] MEDS: DEXMEDETOMIDINE/0.9% NACL(PMX) 400 MCG in EMPTY BAG 1 BAG IV SCH ×2 (13:38→18:18)
[2021-10-22 15:00] LABS: Glucose,Whole Blood 237 mg/dL (75-99)
[2021-10-22 16:07] LABS: Glucose,Whole Blood 216 mg/dL (75-99)
[2021-10-22] MEDS ORDERED: ACETAMINOPHEN IV (For NPO) 1,000 MG in EMPTY BAG 1 BAG IVPB ONE (16:10)
[2021-10-22 16:57] LABS: Glucose,Whole Blood 190 mg/dL (75-99)
--- NOTE | 2021-10-22 17:08 | US ---
EXAMINATION TYPE: US abdomen limited DATE OF EXAM: 10/22/2021 COMPARISON: 2017 CLINICAL HISTORY: elevated LFT , bacteremia , ?cholecystitis. ICU was sedated and therefore could not answer questions or roll during exam, large habitus with overlying bowel g as EXAM MEASUREMENTS: Liver Length: 18.0 cm Gallbladder Wall: 0.2 cm CBD: 0.4 cm Right Kidney: 10.6 x 4.4 x 5.7 cm Pancreas: limited views appear wnl Liver: very difficult to penetrate due to gas and large habitus, no obvious abnormality Gallbladder: wnl Evidence for sonographic Reyes's sign: no CBD: wnl Right Kidney: wnl IMPRESSION: No gallstones or dilated ducts.
[2021-10-22 18:05] LABS: Glucose,Whole Blood 176 mg/dL (75-99)
[2021-10-22 19:06] LABS: Glucose,Whole Blood 129 mg/dL (75-99)
--- NOTE | 2021-10-22 19:43 | P.PN ---
Subjective Progress Note Date: 10/22/21 Principal diagnosis: Sepsis and bacteremia Patient is a 55-year-old male with a past medical history significant for insulin-dependent diabetes mellitus presented to hospital with weakness and mental status changes and elevated blood sugar, patient did have evidence of MSSA bacteremia. On today's evaluation that is 10/22/2021, patient did have another fever of 103 degrees Fahrenheit this afternoon, the patient remains to be pleasantly confused and unable for a history no vomiting no diarrhea or any other changes reported by the nursing staff Objective - Vital Signs Vital signs: Vital Signs Temp 103.0 F H 10/22/21 16:00 Pulse 117 H 10/22/21 16:00 Resp 45 H 10/22/21 16:00 BP 92/58 10/22/21 16:00 Pulse Ox 96 10/22/21 16:00 FiO2 Intake & Output 10/21/21 10/22/21 10/22/21 18:59 06:59 18:59 Intake Total 2763.927 2851.801 1769.033 Output Total 525 425 555 Balance 764.690 8480.801 1214.033 Weight 106.594 kg 111.1 kg 111.1 kg Intake: IV 3750 1645 .9 @ 20 20 ACETAMINOPHEN IV (For NPO 100 ) 1,000 mg In Empty Bag 1 bag @ 400 mls/hr IVPB ONCE [facility] Rx#:[id number] DAPTOmycin 500 mg In 50 Sodium Chloride 0.9% 50 ml @ 100 mls/hr IVPB Q48H [facility] Rx#:[id number] Dextrose 5% in Water 1, 1100 300 000 ml @ 100 mls/hr IV . [id number] [facility] with Sodium Bicarb (1 Meq/ml) 150 ml Rx#:[id number] Lactated Ringers 1,000 ml 2000 @ 999 mls/hr IV .Q1H1M [facility] Rx#:[id number] Piperacillin-Tazobactam 3 100 200 .375 gm In Sodium Chloride 0.9% 100 ml @ 25 mls/hr IVPB Q8HR [facility] Rx# :[id number] Potassium Chloride 10 meq 400 600 In Water For Injection 1 100ml.bag @ 100 mls/hr IVPB Q1HR [facility] Rx#: [id number] Sodium Chloride 0.9% 1, 525 000 ml @ 75 mls/hr IV . [id number] [facility] Rx#:[id number] Intake, IV Titration 1159.536 208.801 124.033 Amount ACETAMINOPHEN IV (For NPO 100 ) 1,000 mg In Empty Bag 1 bag @ 400 mls/hr IVPB ONCE STA Rx#:[id number] Dexmedetomidine/0.9% NaCl 20.740 (Pmx) 400 mcg In Empty Bag 1 bag @ 0.2 MCG/KG/HR 5.555 mls/hr IV .Q18H1M [facility] Rx#:[id number] Dextrose 5% in Water 1, 300 100 000 ml @ 100 mls/hr IV . [id number] [facility] with Sodium Bicarb (1 Meq/ml) 50 ml Rx#:[id number] Dextrose 5% in Water 1, 100 000 ml @ 100 mls/hr IV . [id number] [facility] with Sodium Bicarb (1 Meq/ml) 150 ml Rx#:[id number] Insulin Regular 100 unit 59.536 68.663 47.655 In Sodium Chloride 0.9% 100 ml @ Per Protocol IV .Q0M [facility] Rx#:[id number] Magnesium Sulfate-D5w Pmx 300 1 gm In Dextrose/Water 1 100ml.bag @ 100 mls/hr IVPB Q1H [facility] Rx#: [id number] Norepinephrine 4 mg In 40.138 55.638 Sodium Chloride 0.9% 250 ml @ 0.05 MCG/KG/MIN 20. 306 mls/hr IV .[id number] [facility] Rx#:[id number] Piperacillin-Tazobactam 3 100 .375 gm In Sodium Chloride 0.9% 100 ml @ 25 mls/hr IVPB Q8HR [facility] Rx# :[id number] Potassium Chloride 10 meq 200 In Water For Injection 1 100ml.bag @ 100 mls/hr IVPB Q1HR [facility] Rx#: [id number] Output: Urine 525 425 555 Other: Voiding Method Indwelling Catheter Indwelling Catheter Indwelling Catheter # Bowel Movements 1 - Exam GENERAL DESCRIPTION: Middle-aged male lying in bed in no distress RESPIRATORY SYSTEM: Unlabored breathing , decreased breath sounds at bases HEART: S1 S2 regular rate and rhythm , ABDOMEN: Soft , no tenderness EXTREMITIES: No edema feet - Labs CBC & Chem 7: 10/22/21 05:21 10/22/21 16:50 Labs: Abnormal Lab Results - Last 24 Hours (Table) 10/21/21 10/21/21 10/21/21 Range/Units 15:29 15:29 15:29 RBC (4.30-5.90) m/uL Hgb (13.0-17.5) gm/dL Hct (39.0-53.0) % Plt Count (150-450) k/uL Lymphocytes # (Manual) (1.0-4.8) k/uL ABG pCO2 (35-45) mmHg ABG pO2 (83-108) mmHg ABG O2 Saturation (94-97) % Sodium (137-145) mmol/L Potassium (3.5-5.1) mmol/L BUN (9-20) mg/dL Creatinine (0.66-1.25) mg/dL Glucose (74-99) mg/dL POC Glucose (mg/dL) (75-99) mg/dL Hemoglobin A1c 9.6 H (0.0-6.0) % Calcium (8.4-10.2) mg/dL AST (17-59) U/L ALT (4-49) U/L Troponin I 0.162 H* (0.000-0.034) ng/mL Total Protein (6.3-8.2) g/dL Albumin (3.5-5.0) g/dL Vitamin B12 1482.0 H (200.0-944.0) pg/mL 10/21/21 10/21/21 10/21/21 Range/Units 16:23 17:03 17:55 RBC (4.30-5.90) m/uL Hgb (13.0-17.5) gm/dL Hct (39.0-53.0) % Plt Count (150-450) k/uL Lymphocytes # (Manual) (1.0-4.8) k/uL ABG pCO2 (35-45) mmHg ABG pO2 (83-108) mmHg ABG O2 Saturation (94-97) % Sodium (137-145) mmol/L Potassium (3.5-5.1) mmol/L BUN (9-20) mg/dL Creatinine (0.66-1.25) mg/dL Glucose (74-99) mg/dL POC Glucose (mg/dL) 271 H 238 H 227 H (75-99) mg/dL Hemoglobin A1c (0.0-6.0) % Calcium (8.4-10.2) mg/dL AST (17-59) U/L ALT (4-49) U/L Troponin I (0.000-0.034) ng/mL Total Protein (6.3-8.2) g/dL Albumin (3.5-5.0) g/dL Vitamin B12 (200.0-944.0) pg/mL 10/21/21 10/21/21 10/21/21 Range/Units 19:07 19:55 20:55 RBC (4.30-5.90) m/uL Hgb (13.0-17.5) gm/dL Hct (39.0-53.0) % Plt Count (150-450) k/uL Lymphocytes # (Manual) (1.0-4.8) k/uL ABG pCO2 (35-45) mmHg ABG pO2 (83-108) mmHg ABG O2 Saturation (94-97) % Sodium (137-145) mmol/L Potassium (3.5-5.1) mmol/L BUN (9-20) mg/dL Creatinine (0.66-1.25) mg/dL Glucose (74-99) mg/dL POC Glucose (mg/dL) 191 H 202 H 215 H (75-99) mg/dL Hemoglobin A1c (0.0-6.0) % Calcium (8.4-10.2) mg/dL AST (17-59) U/L ALT (4-49) U/L Troponin I (0.000-0.034) ng/mL Total Protein (6.3-8.2) g/dL Albumin (3.5-5.0) g/dL Vitamin B12 (200.0-944.0) pg/mL 10/21/21 10/21/21 10/21/21 Range/Units 22:00 23:03 23:58 RBC (4.30-5.90) m/uL Hgb (13.0-17.5) gm/dL Hct (39.0-53.0) % Plt Count (150-450) k/uL Lymphocytes # (Manual) (1.0-4.8) k/uL ABG pCO2 (35-45) mmHg ABG pO2 (83-108) mmHg ABG O2 Saturation (94-97) % Sodium (137-145) mmol/L Potassium (3.5-5.1) mmol/L BUN (9-20) mg/dL Creatinine (0.66-1.25) mg/dL Glucose (74-99) mg/dL POC Glucose (mg/dL) 222 H 222 H 208 H (75-99) mg/dL Hemoglobin A1c (0.0-6.0) % Calcium (8.4-10.2) mg/dL AST (17-59) U/L ALT (4-49) U/L Troponin I (0.000-0.034) ng/mL Total Protein (6.3-8.2) g/dL Albumin (3.5-5.0) g/dL Vitamin B12 (200.0-944.0) pg/mL 10/22/21 10/22/21 10/22/21 Range/Units 00:36 00:52 01:52 RBC (4.30-5.90) m/uL Hgb (13.0-17.5) gm/dL Hct (39.0-53.0) % Plt Count (150-450) k/uL Lymphocytes # (Manual) (1.0-4.8) k/uL ABG pCO2 34 L (35-45) mmHg ABG pO2 54 L* (83-108) mmHg ABG O2 Saturation 90.6 L (94-97) % Sodium (137-145) mmol/L Potassium (3.5-5.1) mmol/L BUN (9-20) mg/dL Creatinine (0.66-1.25) mg/dL Glucose (74-99) mg/dL POC Glucose (mg/dL) 145 H 164 H (75-99) mg/dL Hemoglobin A1c (0.0-6.0) % Calcium (8.4-10.2) mg/dL AST (17-59) U/L ALT (4-49) U/L Troponin I (0.000-0.034) ng/mL Total Protein (6.3-8.2) g/dL Albumin (3.5-5.0) g/dL Vitamin B12 (200.0-944.0) pg/mL 10/22/21 10/22/21 10/22/21 Range/Units 02:53 03:52 04:56 RBC (4.30-5.90) m/uL Hgb (13.0-17.5) gm/dL Hct (39.0-53.0) % Plt Count (150-450) k/uL Lymphocytes # (Manual) (1.0-4.8) k/uL ABG pCO2 (35-45) mmHg ABG pO2 (83-108) mmHg ABG O2 Saturation (94-97) % Sodium (137-145) mmol/L Potassium (3.5-5.1) mmol/L BUN (9-20) mg/dL Creatinine (0.66-1.25) mg/dL Glucose (74-99) mg/dL POC Glucose (mg/dL) 143 H 138 H 179 H (75-99) mg/dL Hemoglobin A1c (0.0-6.0) % Calcium (8.4-10.2) mg/dL AST (17-59) U/L ALT (4-49) U/L Troponin I (0.000-0.034) ng/mL Total Protein (6.3-8.2) g/dL Albumin (3.5-5.0) g/dL Vitamin B12 (200.0-944.0) pg/mL 10/22/21 10/22/21 10/22/21 Range/Units 05:21 05:21 05:26 RBC 3.15 L (4.30-5.90) m/uL Hgb 10.1 L (13.0-17.5) gm/dL Hct 31.1 L (39.0-53.0) % Plt Count 99 L (150-450) k/uL Lymphocytes # (Manual) 0.73 L (1.0-4.8) k/uL ABG pCO2 (35-45) mmHg ABG pO2 (83-108) mmHg ABG O2 Saturation (94-97) % Sodium 131 L (137-145) mmol/L Potassium 2.9 L (3.5-5.1) mmol/L BUN 73 H (9-20) mg/dL Creatinine 2.89 H (0.66-1.25) mg/dL Glucose 191 H (74-99) mg/dL POC Glucose (mg/dL) 185 H (75-99) mg/dL Hemoglobin A1c (0.0-6.0) % Calcium 7.2 L (8.4-10.2) mg/dL AST 225 H (17-59) U/L ALT 85 H (4-49) U/L Troponin I (0.000-0.034) ng/mL Total Protein 5.1 L (6.3-8.2) g/dL Albumin 2.4 L (3.5-5.0) g/dL Vitamin B12 (200.0-944.0) pg/mL 10/22/21 10/22/21 10/22/21 Range/Units 05:55 06:54 07:44 RBC (4.30-5.90) m/uL Hgb (13.0-17.5) gm/dL Hct (39.0-53.0) % Plt Count (150-450) k/uL Lymphocytes # (Manual) (1.0-4.8) k/uL ABG pCO2 (35-45) mmHg ABG pO2 (83-108) mmHg ABG O2 Saturation (94-97) % Sodium (137-145) mmol/L Potassium (3.5-5.1) mmol/L BUN (9-20) mg/dL Creatinine (0.66-1.25) mg/dL Glucose (74-99) mg/dL POC Glucose (mg/dL) 189 H 208 H 203 H (75-99) mg/dL Hemoglobin A1c (0.0-6.0) % Calcium (8.4-10.2) mg/dL AST (17-59) U/L ALT (4-49) U/L Troponin I (0.000-0.034) ng/mL Total Protein (6.3-8.2) g/dL Albumin (3.5-5.0) g/dL Vitamin B12 (200.0-944.0) pg/mL 10/22/21 10/22/21 10/22/21 Range/Units 09:02 10:11 11:01 RBC (4.30-5.90) m/uL Hgb (13.0-17.5) gm/dL Hct (39.0-53.0) % Plt Count (150-450) k/uL Lymphocytes # (Manual) (1.0-4.8) k/uL ABG pCO2 (35-45) mmHg ABG pO2 (83-108) mmHg ABG O2 Saturation (94-97) % Sodium (137-145) mmol/L Potassium (3.5-5.1) mmol/L BUN (9-20) mg/dL Creatinine (0.66-1.25) mg/dL Glucose (74-99) mg/dL POC Glucose (mg/dL) 211 H 156 H 158 H (75-99) mg/dL Hemoglobin A1c (0.0-6.0) % Calcium (8.4-10.2) mg/dL AST (17-59) U/L ALT (4-49) U/L Troponin I (0.000-0.034) ng/mL Total Protein (6.3-8.2) g/dL Albumin (3.5-5.0) g/dL Vitamin B12 (200.0-944.0) pg/mL 10/22/21 10/22/21 10/22/21 Range/Units 13:01 13:21 14:59 RBC (4.30-5.90) m/uL Hgb (13.0-17.5) gm/dL Hct (39.0-53.0) % Plt Count (150-450) k/uL Lymphocytes # (Manual) (1.0-4.8) k/uL ABG pCO2 33 L (35-45) mmHg ABG pO2 69 L (83-108) mmHg ABG O2 Saturation (94-97) % Sodium (137-145) mmol/L Potassium (3.5-5.1) mmol/L BUN (9-20) mg/dL Creatinine (0.66-1.25) mg/dL Glucose (74-99) mg/dL POC Glucose (mg/dL) 117 H 237 H (75-99) mg/dL Hemoglobin A1c (0.0-6.0) % Calcium (8.4-10.2) mg/dL AST (17-59) U/L ALT (4-49) U/L Troponin I (0.000-0.034) ng/mL Total Protein (6.3-8.2) g/dL Albumin (3.5-5.0) g/dL Vitamin B12 (200.0-944.0) pg/mL 10/22/21 Range/Units 16:05 RBC (4.30-5.90) m/uL Hgb (13.0-17.5) gm/dL Hct (39.0-53.0) % Plt Count (150-450) k/uL Lymphocytes # (Manual) (1.0-4.8) k/uL ABG pCO2 (35-45) mmHg ABG pO2 (83-108) mmHg ABG O2 Saturation (94-97) % Sodium (137-145) mmol/L Potassium (3.5-5.1) mmol/L BUN (9-20) mg/dL Creatinine (0.66-1.25) mg/dL Glucose (74-99) mg/dL POC Glucose (mg/dL) 216 H (75-99) mg/dL Hemoglobin A1c (0.0-6.0) % Calcium (8.4-10.2) mg/dL AST (17-59) U/L ALT (4-49) U/L Troponin I (0.000-0.034) ng/mL Total Protein (6.3-8.2) g/dL Albumin (3.5-5.0) g/dL Vitamin B12 (200.0-944.0) pg/mL Microbiology - Last 24 Hours (Table) 10/21/21 10:37 Blood Culture Gram Stain - Preliminary Blood Blood Culture - Preliminary Staphylococcus aureus 10/21/21 10:37 Blood Culture - Final Blood 10/21/21 10:00 Urine Culture - Preliminary Urine,Voided Assessment and Plan (1) Bacteremia Current Visit: Yes Status: Acute Code(s): R78.81 - BACTEREMIA SNOMED Code(s): 6757957 Plan: 1patient presented to hospital with weakness in this patient did have a fever tachycardia meeting criteria for sepsis though initial work-up for a source has been negative with a negative UA chest x-ray did not show any acute abnormality patient abdominal was soft clinical examination and no evidence of any lower extremity cellulitis or joint swelling. 2patient with renal insufficiency and high risk of nephrotoxicity from vancomycin. 3 patient blood culture presumptive MSSA, antibiotic will be switched over to cefazolin we will check an ultrasound of the liver gallbladder to make sure no evidence of any cholecystitis as CT could not be done. at the bedside and multiple questions were answered Time with Patient: Less than 30
[2021-10-22 19:57] LABS: Glucose,Whole Blood 167 mg/dL (75-99)
[2021-10-22 21:23] LABS: Glucose,Whole Blood 208 mg/dL (75-99)
[2021-10-22 22:16] LABS: Glucose,Whole Blood 156 mg/dL (75-99)
[2021-10-22 23:23] LABS: Glucose,Whole Blood 158 mg/dL (75-99)
[2021-10-23 00:26] LABS: Glucose,Whole Blood 186 mg/dL (75-99)
[2021-10-23 01:18] LABS: Glucose,Whole Blood 186 mg/dL (75-99)
[2021-10-23 02:14] LABS: Glucose,Whole Blood 176 mg/dL (75-99)
[2021-10-23 03:55] LABS: Glucose,Whole Blood 188 mg/dL (75-99)
[2021-10-23 05:08] LABS: Glucose,Whole Blood 142 mg/dL (75-99)
[2021-10-23] MEDS: SODIUM CHLORIDE 0.9% 1,000 ML IV SCH ×2 (05:10→14:15)
[2021-10-23] MEDS: NOREPINEPHRINE 4 MG in SODIUM CHLORIDE 0.9% 250 ML IV SCH ×2 (05:11→14:52)
[2021-10-23] MEDS: LORazepam 2 MG/ML INJ IV PRN ×3 (05:45→23:15)
[2021-10-23 05:56] LABS: Glucose,Whole Blood 129 mg/dL (75-99)
[2021-10-23] MEDS: DEXMEDETOMIDINE/0.9% NACL(PMX) 400 MCG in EMPTY BAG 1 BAG IV SCH ×2 (06:43→14:15)
[2021-10-23 07:01] LABS: Calcium 8.1 mg/dL (8.4-10.2); Potassium 4.2 mmol/L (3.5-5.1)
[2021-10-23 07:06] LABS: HCT 36.9 % (39.0-53.0); HGB 11.4 gm/dL (13.0-17.5); MCH 31.5 pg (25.0-35.0); MCV 101.6 fL (80.0-100.0); Macrocytosis Slight; Mean Platelet Volume 10.5; Platelet Count 120 k/uL (150-450); RBC 3.63 m/uL (4.30-5.90); RDW 13.7 % (11.5-15.5); WBC 11.5 k/uL (3.8-10.6)
[2021-10-23 07:09] LABS: Glucose,Whole Blood 146 mg/dL (75-99)
[2021-10-23] MEDS: IPRATROPIUM-ALBUTEROL 3 ML NEB INHALATION SCH ×3 (07:09→20:38)
[2021-10-23 07:31] LABS: Band Neutrophils % 3 %; Large Platelets Present; Lymphocytes # (M) 1.15 k/uL (1.0-4.8); Monocytes # (M) 1.38 k/uL (0-1.0); Neutrophils % (M) 75 %; Nucleated Red Blood Cells 0 /100 WBC (0-0); Total Cells Counted 100
[2021-10-23 07:58] LABS: Glucose,Whole Blood 170 mg/dL (75-99)
[2021-10-23] MEDS: PANTOPRAZOLE 40 MG/10 ML VIAL IVP SCH (08:00)
[2021-10-23] MEDS: THIAMINE 100 MG/ML 2 ML VIAL IVP SCH ×2 (08:00→20:42)
[2021-10-23] MEDS: NICOTINE 21MG/24HR PATCH TRANSDERM SCH (08:01)
[2021-10-23] MEDS ORDERED: FUROSEMIDE 10 MG/ML 10 ML VIAL IV STA (08:50)
[2021-10-23 09:08] LABS: Glucose,Whole Blood 178 mg/dL (75-99)
--- NOTE | 2021-10-23 09:13 | P.PN ---
Subjective Patient is seen in follow-up for acute kidney injury and chronic kidney disease. Renal function worse. Creatinine 3.56. Urine output 5-15 mL an hour. Maintained on normal saline. Patient is confused and not a reliable historian at this time. Off Levophed. Vital signs are stable. General: Patient is confused. HEENT: No JVD. LUNGS: Breath sounds decreased. HEART: Rate and Rhythm are regular. ABDOMEN: Soft, no distention. EXTREMITITES: Trace edema. Objective - Vital Signs Vital signs: Vital Signs Temp 100.9 F H 10/23/21 08:00 Pulse 112 H 10/23/21 09:00 Resp 29 H 10/23/21 09:00 BP 121/97 10/23/21 09:00 Pulse Ox 98 10/23/21 09:00 FiO2 Intake & Output 10/22/21 10/23/21 10/23/21 18:59 06:59 18:59 Intake Total 2228.783 1305.628 318.187 Output Total 585 75 90 Balance 1053.438 8428.628 228.187 Weight 111.1 kg 118.2 kg Intake: IV 2045 1150 275 .9 @ 20 20 ACETAMINOPHEN IV (For NPO 100 ) 1,000 mg In Empty Bag 1 bag @ 400 mls/hr IVPB ONCE STA Rx#:[id number] Dextrose 5% in Water 1, 300 000 ml @ 100 mls/hr IV . [id number] [facility] with Sodium Bicarb (1 Meq/ml) 150 ml Rx#:[id number] Piperacillin-Tazobactam 3 200 .375 gm In Sodium Chloride 0.9% 100 ml @ 25 mls/hr IVPB Q8HR [facility] Rx# :[id number] Potassium Chloride 10 meq 700 200 In Water For Injection 1 100ml.bag @ 100 mls/hr IVPB Q1HR [facility] Rx#: [id number] Sodium Chloride 0.9% 1, 675 900 225 000 ml @ 75 mls/hr IV . [id number] [facility] Rx#:[id number] ceFAZolin 2 gm In Sodium 50 50 50 Chloride 0.9% 50 ml @ 100 mls/hr IVPB Q12HR [facility] Rx #:[id number] Intake, IV Titration 183.783 155.628 43.187 Amount Dexmedetomidine/0.9% NaCl 66.569 100.000 38.052 (Pmx) 400 mcg In Empty Bag 1 bag @ 0.2 MCG/KG/HR 5.555 mls/hr IV .Q18H1M [facility] Rx#:[id number] Insulin Regular 100 unit 61.576 48.860 5.135 In Sodium Chloride 0.9% 100 ml @ Per Protocol IV .Q0M [facility] Rx#:[id number] Norepinephrine 4 mg In 55.638 6.768 Sodium Chloride 0.9% 250 ml @ 0.05 MCG/KG/MIN 20. 306 mls/hr IV .[id number] [facility] Rx#:[id number] Output: Urine 585 75 90 Other: Voiding Method Indwelling Catheter Indwelling Catheter - Labs CBC & Chem 7: 10/23/21 05:50 10/23/21 05:50 Labs: Abnormal Lab Results - Last 24 Hours (Table) 10/22/21 10/22/21 10/22/21 Range/Units 10:11 11:01 13:01 WBC (3.8-10.6) k/uL RBC (4.30-5.90) m/uL Hgb (13.0-17.5) gm/dL Hct (39.0-53.0) % MCV (80.0-100.0) fL Plt Count (150-450) k/uL Neutrophils # (Manual) (1.3-7.7) k/uL Monocytes # (Manual) (0-1.0) k/uL ABG pCO2 (35-45) mmHg ABG pO2 (83-108) mmHg Sodium (137-145) mmol/L Potassium (3.5-5.1) mmol/L Carbon Dioxide (22-30) mmol/L BUN (9-20) mg/dL Creatinine (0.66-1.25) mg/dL Glucose (74-99) mg/dL POC Glucose (mg/dL) 156 H 158 H 117 H (75-99) mg/dL Calcium (8.4-10.2) mg/dL 10/22/21 10/22/21 10/22/21 Range/Units 13:21 14:59 16:05 WBC (3.8-10.6) k/uL RBC (4.30-5.90) m/uL Hgb (13.0-17.5) gm/dL Hct (39.0-53.0) % MCV (80.0-100.0) fL Plt Count (150-450) k/uL Neutrophils # (Manual) (1.3-7.7) k/uL Monocytes # (Manual) (0-1.0) k/uL ABG pCO2 33 L (35-45) mmHg ABG pO2 69 L (83-108) mmHg Sodium (137-145) mmol/L Potassium (3.5-5.1) mmol/L Carbon Dioxide (22-30) mmol/L BUN (9-20) mg/dL Creatinine (0.66-1.25) mg/dL Glucose (74-99) mg/dL POC Glucose (mg/dL) 237 H 216 H (75-99) mg/dL Calcium (8.4-10.2) mg/dL 10/22/21 10/22/21 10/22/21 Range/Units 16:50 16:56 18:03 WBC (3.8-10.6) k/uL RBC (4.30-5.90) m/uL Hgb (13.0-17.5) gm/dL Hct (39.0-53.0) % MCV (80.0-100.0) fL Plt Count (150-450) k/uL Neutrophils # (Manual) (1.3-7.7) k/uL Monocytes # (Manual) (0-1.0) k/uL ABG pCO2 (35-45) mmHg ABG pO2 (83-108) mmHg Sodium (137-145) mmol/L Potassium 3.4 L (3.5-5.1) mmol/L Carbon Dioxide (22-30) mmol/L BUN (9-20) mg/dL Creatinine (0.66-1.25) mg/dL Glucose (74-99) mg/dL POC Glucose (mg/dL) 190 H 176 H (75-99) mg/dL Calcium (8.4-10.2) mg/dL 10/22/21 10/22/21 10/22/21 Range/Units 19:05 19:56 21:21 WBC (3.8-10.6) k/uL RBC (4.30-5.90) m/uL Hgb (13.0-17.5) gm/dL Hct (39.0-53.0) % MCV (80.0-100.0) fL Plt Count (150-450) k/uL Neutrophils # (Manual) (1.3-7.7) k/uL Monocytes # (Manual) (0-1.0) k/uL ABG pCO2 (35-45) mmHg ABG pO2 (83-108) mmHg Sodium (137-145) mmol/L Potassium (3.5-5.1) mmol/L Carbon Dioxide (22-30) mmol/L BUN (9-20) mg/dL Creatinine (0.66-1.25) mg/dL Glucose (74-99) mg/dL POC Glucose (mg/dL) 129 H 167 H 208 H (75-99) mg/dL Calcium (8.4-10.2) mg/dL 10/22/21 10/22/21 10/23/21 Range/Units 22:14 23:22 00:24 WBC (3.8-10.6) k/uL RBC (4.30-5.90) m/uL Hgb (13.0-17.5) gm/dL Hct (39.0-53.0) % MCV (80.0-100.0) fL Plt Count (150-450) k/uL Neutrophils # (Manual) (1.3-7.7) k/uL Monocytes # (Manual) (0-1.0) k/uL ABG pCO2 (35-45) mmHg ABG pO2 (83-108) mmHg Sodium (137-145) mmol/L Potassium (3.5-5.1) mmol/L Carbon Dioxide (22-30) mmol/L BUN (9-20) mg/dL Creatinine (0.66-1.25) mg/dL Glucose (74-99) mg/dL POC Glucose (mg/dL) 156 H 158 H 186 H (75-99) mg/dL Calcium (8.4-10.2) mg/dL 10/23/21 10/23/21 10/23/21 Range/Units 01:17 02:12 03:54 WBC (3.8-10.6) k/uL RBC (4.30-5.90) m/uL Hgb (13.0-17.5) gm/dL Hct (39.0-53.0) % MCV (80.0-100.0) fL Plt Count (150-450) k/uL Neutrophils # (Manual) (1.3-7.7) k/uL Monocytes # (Manual) (0-1.0) k/uL ABG pCO2 (35-45) mmHg ABG pO2 (83-108) mmHg Sodium (137-145) mmol/L Potassium (3.5-5.1) mmol/L Carbon Dioxide (22-30) mmol/L BUN (9-20) mg/dL Creatinine (0.66-1.25) mg/dL Glucose (74-99) mg/dL POC Glucose (mg/dL) 186 H 176 H 188 H (75-99) mg/dL Calcium (8.4-10.2) mg/dL 10/23/21 10/23/21 10/23/21 Range/Units 05:07 05:50 05:50 WBC 11.5 H (3.8-10.6) k/uL RBC 3.63 L (4.30-5.90) m/uL Hgb 11.4 L (13.0-17.5) gm/dL Hct 36.9 L (39.0-53.0) % MCV 101.6 H (80.0-100.0) fL Plt Count 120 L (150-450) k/uL Neutrophils # (Manual) 8.90 H (1.3-7.7) k/uL Monocytes # (Manual) 1.38 H (0-1.0) k/uL ABG pCO2 (35-45) mmHg ABG pO2 (83-108) mmHg Sodium 135 L (137-145) mmol/L Potassium (3.5-5.1) mmol/L Carbon Dioxide 20 L (22-30) mmol/L BUN 86 H (9-20) mg/dL Creatinine 3.56 H (0.66-1.25) mg/dL Glucose 134 H (74-99) mg/dL POC Glucose (mg/dL) 142 H (75-99) mg/dL Calcium 8.1 L (8.4-10.2) mg/dL 10/23/21 10/23/21 10/23/21 Range/Units 05:53 07:08 07:55 WBC (3.8-10.6) k/uL RBC (4.30-5.90) m/uL Hgb (13.0-17.5) gm/dL Hct (39.0-53.0) % MCV (80.0-100.0) fL Plt Count (150-450) k/uL Neutrophils # (Manual) (1.3-7.7) k/uL Monocytes # (Manual) (0-1.0) k/uL ABG pCO2 (35-45) mmHg ABG pO2 (83-108) mmHg Sodium (137-145) mmol/L Potassium (3.5-5.1) mmol/L Carbon Dioxide (22-30) mmol/L BUN (9-20) mg/dL Creatinine (0.66-1.25) mg/dL Glucose (74-99) mg/dL POC Glucose (mg/dL) 129 H 146 H 170 H (75-99) mg/dL Calcium (8.4-10.2) mg/dL 10/23/21 Range/Units 09:06 WBC (3.8-10.6) k/uL RBC (4.30-5.90) m/uL Hgb (13.0-17.5) gm/dL Hct (39.0-53.0) % MCV (80.0-100.0) fL Plt Count (150-450) k/uL Neutrophils # (Manual) (1.3-7.7) k/uL Monocytes # (Manual) (0-1.0) k/uL ABG pCO2 (35-45) mmHg ABG pO2 (83-108) mmHg Sodium (137-145) mmol/L Potassium (3.5-5.1) mmol/L Carbon Dioxide (22-30) mmol/L BUN (9-20) mg/dL Creatinine (0.66-1.25) mg/dL Glucose (74-99) mg/dL POC Glucose (mg/dL) 178 H (75-99) mg/dL Calcium (8.4-10.2) mg/dL Microbiology - Last 24 Hours (Table) 10/22/21 06:01 Blood Culture Gram Stain - Preliminary Blood 10/21/21 10:00 Urine Culture - Preliminary Urine,Voided Presumptive Staph aureus 10/22/21 05:52 Blood Culture - Final Blood 10/21/21 10:37 Blood Culture Gram Stain - Preliminary Blood Blood Culture - Preliminary Staphylococcus aureus Assessment and Plan Plan: Assessment: 1. Acute kidney injury secondary to ATN secondary to septic shock. Creatinine was 2.59 on admission and is 3.56 today. Oliguric. No hydronephrosis noted on kidney ultrasound. 2. Septic shock secondary to staph aureus UTI and bacteremia on antibiotics. Infectious disease following. Off Levophed. 3. Chronic kidney disease stage IIIA with baseline creatinine in the range of 1.5-1.7 secondary to diabetic kidney disease. 4. Metabolic acidosis secondary to acute kidney injury. Status post bicarb drip. 5. Hypovolemic hyponatremia improved with IV hydration. Also component of hyperglycemia. Improved. 6. Hypokalemia from poor intake and intracellullar shifting from IV bicarb. Replaced. Better. 7. Diabetes mellitus. Serum acetone positive. Currently on insulin drip. Plan: Maintain normal saline at 75 mL an hour. Avoid nephrotoxins. Continue to monitor renal function and urine output. Preserved ejection fraction with moderate LVH noted on echocardiogram. Lasix 80 mg IV once today. If no improvement in renal function and urine output in the next 24 hours, will initiate renal replacement therapy. Check phosphorus level.
--- NOTE | 2021-10-23 09:14 | XR ---
EXAMINATION TYPE: XR chest 1V portable DATE OF EXAM: 10/23/2021 COMPARISON: 10/20/2021 HISTORY: Shortness of breath TECHNIQUE: Single frontal view of the chest is obtained. FINDINGS: There has been interval development of mild pulmonary vascular congestion, interstitial ed jose and small right effusion. Heart size is prominent and the findings are most consistent with CHF. There is no pneumothorax. The osseous structures are intact. IMPRESSION: Findings most consistent with interval development of mild to moderate CHF.
[2021-10-23] MEDS ORDERED: TERBUTALINE 1 MG/ML VIAL SQ ONE (09:30)
--- NOTE | 2021-10-23 10:44 | P.PN ---
Subjective Progress Note Date: 10/23/21 HISTORY OF PRESENT ILLNESS This is a 55-year-old male patient of Dr. Fischer with past medical history of diabetes mellitus on insulin pump, hypertension, seizure disorder, gastroesophag eal reflux disease, generalized anxiety disorder, tobacco use and dependence, alcohol abuse suspected. Patient is able to state that he has not felt well for 3 days and insulin pump is not in place. He is a poor historian and unable to give accurate information. Patient's is on her way to the hospital. He was brought in to the emergency center by EMS for generalized weakness. Patient was too weak apparently to get off the floor after a fall. Patient was found to be febrile at 101.6, heart rate 134, blood pressure 120/98, respiratory rate 36, pulse ox 99% on 2 L. WBC 9.8, hemoglobin 11.7, platelet count 140. Sodium 124, potassium 3.7, chloride 92, CO2 19, BUN 71 and creatinine 2.59. Blood sugar 331 and subsequent blood glucose 484 and 547. Lactic acid 1.8. Calcium 8.3. Magnesium 1.6. Troponin is 0.129. Albumin 3.4. AST 282, ALT 77, alkaline phosphatase 85. Influenza a not detected, influenza B not detected, RSV not detected, SARS Covid to not detected. Chest x-ray revealed no acute cardiopulmonary process. CAT scan of the brain revealed no acute process. Encephalomalacia of the right temporal lobe similar to 2018. Patient is seen today in the emergency center waiting for a bed, we will change bed assignment to intensive care unit, and additional lab work ordered including alcohol level, acetone, blood culture, consults added for cardiology for tachycardia, elevated troponins, top hat body maker for ICU management, neurology for metabolic encephalopathy and infectious disease. Patient started on empiric antibiotics with Zosyn, patient started on CIWA protocol. He is currently on bicarbonate drip with 1 amp 100 mL per hour. 10/22: Patient is in bed in moderate distress in the ICU, at the bedside. Per the the patient drinks approximately applied to the fifth daily. Patient is tachycardic/ tachypenic, urinary output 60 ML's per hour and indwelling catheter. Blood culture is positive for staph aureus. Blood gases on 32% show pO2 of 54, pCO2 34, and a pH is 7.42. He is currently high flow nasal cannula. At 10 L. He is also getting saline at 75 mL an hour, insulin at 9 units an hour, and norepinephrine at 2 mcg/m. His current antibiotics include vancomycin, daptomycin, and Zosyn. Currently white count 9.1, hemoglobin 10.1, hematocrit 31.1, and platelet count 99,000. Sodium 131, potassium 2.9, chlo rides 99, CO2 22, BUN 73, and creatinine 2.89. Troponin levels were 0.129, and 0.162. Albumin is 2.4. 10/23: Patient is sedated at this time. Patient febrile with a temperature 100.9, heart rate 112, respirations 29, blood pressure 121/97, 98% on high flow nasal cannula 10 L. To Cecilia 11.5, hemoglobin 11.4, sodium 135, potassium 4.2, BUN 86, creatinine 3.56. Urine output 50 ML's per hour per indwelling catheter. He still getting saline at 75 ML's an hour, continue with IV antibiotics. Insulin drip until tomorrow. REVIEW OF SYSTEMS Unable to obtain due to patient's mental status. PHYSICAL EXAMINATION Gen: This is a morbidly obese 55-year-old male. Found in ICU bed with at bedside in moderate distress. Unable to answer questions HEENT: Head is atraumatic, normocephalic. Pupils equal, round. Sclerae is anicteric. Patient does not smell of acetone/alcohol. NECK: Supple. No JVD. No lymphadenopathy. No thyromegaly. LUNGS: Diminished with a few scattered rhonchi. No intercostal retractions. HEART: Regular rate and rhythm. No murmur. ABDOMEN: Soft. Bowel sounds are present. No masses. No tenderness. EXTREMITIES: No pedal edema. No calf tenderness. SKIN: No skin lesions noted, no ulcers, no wounds, no areas of erythema. NEUROLOGICAL: Patient is not alert and unable to provide information, unable to follow clear directions. ASSESSMENT AND PLAN 1. Sepsis with fever, tachycardia, tachypnea of unclear etiology. Admit patient to the intensive care unit and consult with top hat body maker. Patient will be started on empiric antibiotics with Zosyn. Urine culture and blood culture t o be obtained. Positive blood cultures. Consult with Dr. Ashford appreciated. 2. Metabolic encephalopathy of unclear etiology. Consult with neurology appreciated. 3. Possible impending delirium tremors. Patient started on CIWA will call with Ativan, thiamine, obtain alcohol level. 4. Hyperglycemic state and patient with diabetes mellitus type 1 insulin requiring. Patient is not on insulin pump. Patient started on insulin drip, will remain on insulin drip until tomorrow. Serum acetone greater than 10, acetone POSITIVE . 5. Acute kidney injury with chronic kidney disease stage III. Consult with nephrology appreciated. Patient on bicarb drip, check urinalysis, renal ultrasound and repeat labs, hold on FAITH inhibitor. 6. Anion gap metabolic acidosis secondary to acute kidney injury. Rule out DKA. Acetone level noted above 7. Tachycardia most likely secondary to sepsis. Cardiology consult. 8. Elevated troponins. Cardiology consult cardiology consult appreciated. E chocardiogram ordered, repeat troponins. 9. Thrombocytopenia most likely secondary to sepsis. Continue to monitor. 10. Hyponatremia. Nephrology following.. 11. Hypertension. Hold lisinopril 20 mg daily. 12. Dementia. Continue Aricept 10 mg daily. 13. Hyperlipidemia. Continue Lipitor 40 mg daily. 14. Gastroesophageal reflux disease and GI prophylaxis. Protonix 40 mg IV daily. 15. History of acute respiratory failure requiring intubation secondary to polysubstance abuse which included narcotics and alcohol. 16. History of liver cirrhosis secondary to alcohol abuse. 17. History of Seizure disorder. Patient does not appear to be on Keppra anymore. 18. Generalized anxiety disorder and recurrent depression. Patient will be admitted to the hospital for a minimum of 2 night stay. Prognosis guarded. DISCHARGE PLAN To be determined. Impression and plan of care have been directed as dictated by the signing physician. Leslee Mcintosh nurse practitioner acting as scribe for signing physician. Objective - Vital Signs Vital signs: Vital Signs Temp 100.9 F H 10/23/21 08:00 Pulse 112 H 10/23/21 09:00 Resp 29 H 10/23/21 09:00 BP 121/97 10/23/21 09:00 Pulse Ox 98 10/23/21 09:00 FiO2 Intake & Output 10/22/21 10/23/21 10/23/21 18:59 06:59 18:59 Intake Total 2228.783 1305.628 318.187 Output Total 585 75 90 Balance 4300.997 7544.628 228.187 Weight 111.1 kg 118.2 kg Intake: IV 2045 1150 275 .9 @ 20 20 ACETAMINOPHEN IV (For NPO 100 ) 1,000 mg In Empty Bag 1 bag @ 400 mls/hr IVPB ONCE STA Rx#:[id number] Dextrose 5% in Water 1, 300 000 ml @ 100 mls/hr IV . [id number] [facility] with Sodium Bicarb (1 Meq/ml) 150 ml Rx#:[id number] Piperacillin-Tazobactam 3 200 .375 gm In Sodium Chloride 0.9% 100 ml @ 25 mls/hr IVPB Q8HR [facility] Rx# :[id number] Potassium Chloride 10 meq 700 200 In Water For Injection 1 100ml.bag @ 100 mls/hr IVPB Q1HR [facility] Rx#: [id number] Sodium Chloride 0.9% 1, 675 900 225 000 ml @ 75 mls/hr IV . [id number] [facility] Rx#:[id number] ceFAZolin 2 gm In Sodium 50 50 50 Chloride 0.9% 50 ml @ 100 mls/hr IVPB Q12HR [facility] Rx #:[id number] Intake, IV Titration 183.783 155.628 43.187 Amount Dexmedetomidine/0.9% NaCl 66.569 100.000 38.052 (Pmx) 400 mcg In Empty Bag 1 bag @ 0.2 MCG/KG/HR 5.555 mls/hr IV .[id number] [facility] Rx#:[id number] Insulin Regular 100 unit 61.576 48.860 5.135 In Sodium Chloride 0.9% 100 ml @ Per Protocol IV .Q0M [facility] Rx#:[id number] Norepinephrine 4 mg In 55.638 6.768 Sodium Chloride 0.9% 250 ml @ 0.05 MCG/KG/MIN 20. 306 mls/hr IV .[id number] [facility] Rx#:[id number] Output: Urine 585 75 90 Other: Voiding Method Indwelling Catheter Indwelling Catheter - Labs CBC & Chem 7: 10/23/21 05:50 10/23/21 05:50 Labs: Abnormal Lab Results - Last 24 Hours (Table) 10/22/21 10/22/21 10/22/21 Range/Units 11:01 13:01 13:21 WBC (3.8-10.6) k/uL RBC (4.30-5.90) m/uL Hgb (13.0-17.5) gm/dL Hct (39.0-53.0) % MCV (80.0-100.0) fL Plt Count (150-450) k/uL Neutrophils # (Manual) (1.3-7.7) k/uL Monocytes # (Manual) (0-1.0) k/uL ABG pCO2 33 L (35-45) mmHg ABG pO2 69 L (83-108) mmHg Sodium (137-145) mmol/L Potassium (3.5-5.1) mmol/L Carbon Dioxide (22-30) mmol/L BUN (9-20) mg/dL Creatinine (0.66-1.25) mg/dL Glucose (74-99) mg/dL POC Glucose (mg/dL) 158 H 117 H (75-99) mg/dL Calcium (8.4-10.2) mg/dL 10/22/21 10/22/21 10/22/21 Range/Units 14:59 16:05 16:50 WBC (3.8-10.6) k/uL RBC (4.30-5.90) m/uL Hgb (13.0-17.5) gm/dL Hct (39.0-53.0) % MCV (80.0-100.0) fL Plt Count (150-450) k/uL Neutrophils # (Manual) (1.3-7.7) k/uL Monocytes # (Manual) (0-1.0) k/uL ABG pCO2 (35-45) mmHg ABG pO2 (83-108) mmHg Sodium (137-145) mmol/L Potassium 3.4 L (3.5-5.1) mmol/L Carbon Dioxide (22-30) mmol/L BUN (9-20) mg/dL Creatinine (0.66-1.25) mg/dL Glucose (74-99) mg/dL POC Glucose (mg/dL) 237 H 216 H (75-99) mg/dL Calcium (8.4-10.2) mg/dL 10/22/21 10/22/21 10/22/21 Range/Units 16:56 18:03 19:05 WBC (3.8-10.6) k/uL RBC (4.30-5.90) m/uL Hgb (13.0-17.5) gm/dL Hct (39.0-53.0) % MCV (80.0-100.0) fL Plt Count (150-450) k/uL Neutrophils # (Manual) (1.3-7.7) k/uL Monocytes # (Manual) (0-1.0) k/uL ABG pCO2 (35-45) mmHg ABG pO2 (83-108) mmHg Sodium (137-145) mmol/L Potassium (3.5-5.1) mmol/L Carbon Dioxide (22-30) mmol/L BUN (9-20) mg/dL Creatinine (0.66-1.25) mg/dL Glucose (74-99) mg/dL POC Glucose (mg/dL) 190 H 176 H 129 H (75-99) mg/dL Calcium (8.4-10.2) mg/dL 10/22/21 10/22/21 10/22/21 Range/Units 19:56 21:21 22:14 WBC (3.8-10.6) k/uL RBC (4.30-5.90) m/uL Hgb (13.0-17.5) gm/dL Hct (39.0-53.0) % MCV (80.0-100.0) fL Plt Count (150-450) k/uL Neutrophils # (Manual) (1.3-7.7) k/uL Monocytes # (Manual) (0-1.0) k/uL ABG pCO2 (35-45) mmHg ABG pO2 (83-108) mmHg Sodium (137-145) mmol/L Potassium (3.5-5.1) mmol/L Carbon Dioxide (22-30) mmol/L BUN (9-20) mg/dL Creatinine (0.66-1.25) mg/dL Glucose (74-99) mg/dL POC Glucose (mg/dL) 167 H 208 H 156 H (75-99) mg/dL Calcium (8.4-10.2) mg/dL 10/22/21 10/23/21 10/23/21 Range/Units 23:22 00:24 01:17 WBC (3.8-10.6) k/uL RBC (4.30-5.90) m/uL Hgb (13.0-17.5) gm/dL Hct (39.0-53.0) % MCV (80.0-100.0) fL Plt Count (150-450) k/uL Neutrophils # (Manual) (1.3-7.7) k/uL Monocytes # (Manual) (0-1.0) k/uL ABG pCO2 (35-45) mmHg ABG pO2 (83-108) mmHg Sodium (137-145) mmol/L Potassium (3.5-5.1) mmol/L Carbon Dioxide (22-30) mmol/L BUN (9-20) mg/dL Creatinine (0.66-1.25) mg/dL Glucose (74-99) mg/dL POC Glucose (mg/dL) 158 H 186 H 186 H (75-99) mg/dL Calcium (8.4-10.2) mg/dL 10/23/21 10/23/21 10/23/21 Range/Units 02:12 03:54 05:07 WBC (3.8-10.6) k/uL RBC (4.30-5.90) m/uL Hgb (13.0-17.5) gm/dL Hct (39.0-53.0) % MCV (80.0-100.0) fL Plt Count (150-450) k/uL Neutrophils # (Manual) (1.3-7.7) k/uL Monocytes # (Manual) (0-1.0) k/uL ABG pCO2 (35-45) mmHg ABG pO2 (83-108) mmHg Sodium (137-145) mmol/L Potassium (3.5-5.1) mmol/L Carbon Dioxide (22-30) mmol/L BUN (9-20) mg/dL Creatinine (0.66-1.25) mg/dL Glucose (74-99) mg/dL POC Glucose (mg/dL) 176 H 188 H 142 H (75-99) mg/dL Calcium (8.4-10.2) mg/dL 10/23/21 10/23/21 10/23/21 Range/Units 05:50 05:50 05:53 WBC 11.5 H (3.8-10.6) k/uL RBC 3.63 L (4.30-5.90) m/uL Hgb 11.4 L (13.0-17.5) gm/dL Hct 36.9 L (39.0-53.0) % MCV 101.6 H (80.0-100.0) fL Plt Count 120 L (150-450) k/uL Neutrophils # (Manual) 8.90 H (1.3-7.7) k/uL Monocytes # (Manual) 1.38 H (0-1.0) k/uL ABG pCO2 (35-45) mmHg ABG pO2 (83-108) mmHg Sodium 135 L (137-145) mmol/L Potassium (3.5-5.1) mmol/L Carbon Dioxide 20 L (22-30) mmol/L BUN 86 H (9-20) mg/dL Creatinine 3.56 H (0.66-1.25) mg/dL Glucose 134 H (74-99) mg/dL POC Glucose (mg/dL) 129 H (75-99) mg/dL Calcium 8.1 L (8.4-10.2) mg/dL 10/23/21 10/23/21 10/23/21 Range/Units 07:08 07:55 09:06 WBC (3.8-10.6) k/uL RBC (4.30-5.90) m/uL Hgb (13.0-17.5) gm/dL Hct (39.0-53.0) % MCV (80.0-100.0) fL Plt Count (150-450) k/uL Neutrophils # (Manual) (1.3-7.7) k/uL Monocytes # (Manual) (0-1.0) k/uL ABG pCO2 (35-45) mmHg ABG pO2 (83-108) mmHg Sodium (137-145) mmol/L Potassium (3.5-5.1) mmol/L Carbon Dioxide (22-30) mmol/L BUN (9-20) mg/dL Creatinine (0.66-1.25) mg/dL Glucose (74-99) mg/dL POC Glucose (mg/dL) 146 H 170 H 178 H (75-99) mg/dL Calcium (8.4-10.2) mg/dL Microbiology - Last 24 Hours (Table) 10/22/21 06:01 Blood Culture Gram Stain - Preliminary Blood Blood Culture - Preliminary Presumptive Staph aureus 10/21/21 10:37 Blood Culture Gram Stain - Preliminary Blood Blood Culture - Preliminary Staphylococcus aureus 10/21/21 10:00 Urine Culture - Preliminary Urine,Voided Presumptive Staph aureus 10/22/21 05:52 Blood Culture - Final Blood
[2021-10-23 11:03] LABS: Glucose,Whole Blood 179 mg/dL (75-99)
[2021-10-23 11:57] LABS: Glucose,Whole Blood 156 mg/dL (75-99)
[2021-10-23] MEDS: INSULIN REGULAR 100 UNIT in SODIUM CHLORIDE 0.9% 100 ML IV SCH (11:58)
--- NOTE | 2021-10-23 11:59 | P.PN ---
Subjective Progress Note Date: 10/23/21 This is a 55-year-old gentleman with a polysubstance abuse who was admitted to the hospital with altered mental status. We are asked to see the patient because of abnormal troponin. Patient also has acute renal failure with creatinine getting worse. He is also being treated for possible sepsis. At his troponin trend is probably not consistent with acute coronary injury. Most probably related to his acute renal failure. Echocardiogram did not show any segmental wall motion defects. LV function is preserved. No acute changes on EKG. Continue current medical therapy. Nephrology follow-up. Patient is on IV fluids, insulin drip and antibiotics. We'll follow him as needed. 10/23/2021: This patient is a admitted with acute on chronic renal failure and possible sepsis. Was seen in this patient because of abnormal troponin. Patient remains confused. His urine output is low. Creatinine has gone up. If renal function doesn't improve, patient may go on dialysis is confused but couldn't get chest x-ray. Lungs show rhonchi. Patient appears to be tachypneic. Further recommendations depend upon clinical course Objective - Vital Signs Vital signs: Vital Signs Temp 100.9 F H 10/23/21 08:00 Pulse 95 10/23/21 11:00 Resp 30 H 10/23/21 11:00 BP 101/63 10/23/21 11:00 Pulse Ox 99 10/23/21 11:00 FiO2 Intake & Output 10/22/21 10/23/21 10/23/21 18:59 06:59 18:59 Intake Total 2228.783 1305.628 486.242 Output Total 585 75 265 Balance 3409.964 4830.628 221.242 Weight 111.1 kg 118.2 kg Intake: IV 2045 1150 425 .9 @ 20 20 ACETAMINOPHEN IV (For NPO 100 ) 1,000 mg In Empty Bag 1 bag @ 400 mls/hr IVPB ONCE STA Rx#:[id number] Dextrose 5% in Water 1, 300 000 ml @ 100 mls/hr IV . [id number] [facility] with Sodium Bicarb (1 Meq/ml) 150 ml Rx#:[id number] Piperacillin-Tazobactam 3 200 .375 gm In Sodium Chloride 0.9% 100 ml @ 25 mls/hr IVPB Q8HR [facility] Rx# :[id number] Potassium Chloride 10 meq 700 200 In Water For Injection 1 100ml.bag @ 100 mls/hr IVPB Q1HR [facility] Rx#: [id number] Sodium Chloride 0.9% 1, 675 900 375 000 ml @ 75 mls/hr IV . [id number] [facility] Rx#:[id number] ceFAZolin 2 gm In Sodium 50 50 50 Chloride 0.9% 50 ml @ 100 mls/hr IVPB Q12HR [facility] Rx #:[id number] Intake, IV Titration 183.783 155.628 61.242 Amount Dexmedetomidine/0.9% NaCl 66.569 100.000 56.107 (Pmx) 400 mcg In Empty Bag 1 bag @ 0.2 MCG/KG/HR 5.555 mls/hr IV .[id number] [facility] Rx#:[id number] Insulin Regular 100 unit 61.576 48.860 5.135 In Sodium Chloride 0.9% 100 ml @ Per Protocol IV .Q0M [facility] Rx#:[id number] Norepinephrine 4 mg In 55.638 6.768 Sodium Chloride 0.9% 250 ml @ 0.05 MCG/KG/MIN 20. 306 mls/hr IV .[id number] [facility] Rx#:[id number] Output: Urine 585 75 265 Other: Voiding Method Indwelling Catheter Indwelling Catheter Indwelling Catheter - Exam GENERAL EXAM: Patient appears to be in mild to moderate respiratory distress. And also confused HEENT: Normocephalic NECK: No masses, no nuchal rigidity. CHEST: No chest wall deformity. LUNGS: Expiratory rhonchi. Scattered rales HEART: S1 and S2 normal with no audible mumurs or gallops. Regular rhythm, femorals equal on both sides.. ABDOMEN: No hepatosplenomegaly, normal bowel sounds, no guarding or rigidity. SKIN: No rashes CENTRAL NERVOUS SYSTEM: No focal deficits. EXTREMITIES: No cyanosis, clubbing or edema. - Labs CBC & Chem 7: 10/23/21 05:50 10/23/21 05:50 Labs: Abnormal Lab Results - Last 24 Hours (Table) 10/22/21 10/22/21 10/22/21 Range/Units 13:01 13:21 14:59 WBC (3.8-10.6) k/uL RBC (4.30-5.90) m/uL Hgb (13.0-17.5) gm/dL Hct (39.0-53.0) % MCV (80.0-100.0) fL Plt Count (150-450) k/uL Neutrophils # (Manual) (1.3-7.7) k/uL Monocytes # (Manual) (0-1.0) k/uL ABG pCO2 33 L (35-45) mmHg ABG pO2 69 L (83-108) mmHg Sodium (137-145) mmol/L Potassium (3.5-5.1) mmol/L Carbon Dioxide (22-30) mmol/L BUN (9-20) mg/dL Creatinine (0.66-1.25) mg/dL Glucose (74-99) mg/dL POC Glucose (mg/dL) 117 H 237 H (75-99) mg/dL Calcium (8.4-10.2) mg/dL 10/22/21 10/22/21 10/22/21 Range/Units 16:05 16:50 16:56 WBC (3.8-10.6) k/uL RBC (4.30-5.90) m/uL Hgb (13.0-17.5) gm/dL Hct (39.0-53.0) % MCV (80.0-100.0) fL Plt Count (150-450) k/uL Neutrophils # (Manual) (1.3-7.7) k/uL Monocytes # (Manual) (0-1.0) k/uL ABG pCO2 (35-45) mmHg ABG pO2 (83-108) mmHg Sodium (137-145) mmol/L Potassium 3.4 L (3.5-5.1) mmol/L Carbon Dioxide (22-30) mmol/L BUN (9-20) mg/dL Creatinine (0.66-1.25) mg/dL Glucose (74-99) mg/dL POC Glucose (mg/dL) 216 H 190 H (75-99) mg/dL Calcium (8.4-10.2) mg/dL 10/22/21 10/22/21 10/22/21 Range/Units 18:03 19:05 19:56 WBC (3.8-10.6) k/uL RBC (4.30-5.90) m/uL Hgb (13.0-17.5) gm/dL Hct (39.0-53.0) % MCV (80.0-100.0) fL Plt Count (150-450) k/uL Neutrophils # (Manual) (1.3-7.7) k/uL Monocytes # (Manual) (0-1.0) k/uL ABG pCO2 (35-45) mmHg ABG pO2 (83-108) mmHg Sodium (137-145) mmol/L Potassium (3.5-5.1) mmol/L Carbon Dioxide (22-30) mmol/L BUN (9-20) mg/dL Creatinine (0.66-1.25) mg/dL Glucose (74-99) mg/dL POC Glucose (mg/dL) 176 H 129 H 167 H (75-99) mg/dL Calcium (8.4-10.2) mg/dL 10/22/21 10/22/21 10/22/21 Range/Units 21:21 22:14 23:22 WBC (3.8-10.6) k/uL RBC (4.30-5.90) m/uL Hgb (13.0-17.5) gm/dL Hct (39.0-53.0) % MCV (80.0-100.0) fL Plt Count (150-450) k/uL Neutrophils # (Manual) (1.3-7.7) k/uL Monocytes # (Manual) (0-1.0) k/uL ABG pCO2 (35-45) mmHg ABG pO2 (83-108) mmHg Sodium (137-145) mmol/L Potassium (3.5-5.1) mmol/L Carbon Dioxide (22-30) mmol/L BUN (9-20) mg/dL Creatinine (0.66-1.25) mg/dL Glucose (74-99) mg/dL POC Glucose (mg/dL) 208 H 156 H 158 H (75-99) mg/dL Calcium (8.4-10.2) mg/dL 10/23/21 10/23/21 10/23/21 Range/Units 00:24 01:17 02:12 WBC (3.8-10.6) k/uL RBC (4.30-5.90) m/uL Hgb (13.0-17.5) gm/dL Hct (39.0-53.0) % MCV (80.0-100.0) fL Plt Count (150-450) k/uL Neutrophils # (Manual) (1.3-7.7) k/uL Monocytes # (Manual) (0-1.0) k/uL ABG pCO2 (35-45) mmHg ABG pO2 (83-108) mmHg Sodium (137-145) mmol/L Potassium (3.5-5.1) mmol/L Carbon Dioxide (22-30) mmol/L BUN (9-20) mg/dL Creatinine (0.66-1.25) mg/dL Glucose (74-99) mg/dL POC Glucose (mg/dL) 186 H 186 H 176 H (75-99) mg/dL Calcium (8.4-10.2) mg/dL 10/23/21 10/23/21 10/23/21 Range/Units 03:54 05:07 05:50 WBC 11.5 H (3.8-10.6) k/uL RBC 3.63 L (4.30-5.90) m/uL Hgb 11.4 L (13.0-17.5) gm/dL Hct 36.9 L (39.0-53.0) % MCV 101.6 H (80.0-100.0) fL Plt Count 120 L (150-450) k/uL Neutrophils # (Manual) 8.90 H (1.3-7.7) k/uL Monocytes # (Manual) 1.38 H (0-1.0) k/uL ABG pCO2 (35-45) mmHg ABG pO2 (83-108) mmHg Sodium (137-145) mmol/L Potassium (3.5-5.1) mmol/L Carbon Dioxide (22-30) mmol/L BUN (9-20) mg/dL Creatinine (0.66-1.25) mg/dL Glucose (74-99) mg/dL POC Glucose (mg/dL) 188 H 142 H (75-99) mg/dL Calcium (8.4-10.2) mg/dL 10/23/21 10/23/21 10/23/21 Range/Units 05:50 05:53 07:08 WBC (3.8-10.6) k/uL RBC (4.30-5.90) m/uL Hgb (13.0-17.5) gm/dL Hct (39.0-53.0) % MCV (80.0-100.0) fL Plt Count (150-450) k/uL Neutrophils # (Manual) (1.3-7.7) k/uL Monocytes # (Manual) (0-1.0) k/uL ABG pCO2 (35-45) mmHg ABG pO2 (83-108) mmHg Sodium 135 L (137-145) mmol/L Potassium (3.5-5.1) mmol/L Carbon Dioxide 20 L (22-30) mmol/L BUN 86 H (9-20) mg/dL Creatinine 3.56 H (0.66-1.25) mg/dL Glucose 134 H (74-99) mg/dL POC Glucose (mg/dL) 129 H 146 H (75-99) mg/dL Calcium 8.1 L (8.4-10.2) mg/dL 10/23/21 10/23/21 10/23/21 Range/Units 07:55 09:06 11:01 WBC (3.8-10.6) k/uL RBC (4.30-5.90) m/uL Hgb (13.0-17.5) gm/dL Hct (39.0-53.0) % MCV (80.0-100.0) fL Plt Count (150-450) k/uL Neutrophils # (Manual) (1.3-7.7) k/uL Monocytes # (Manual) (0-1.0) k/uL ABG pCO2 (35-45) mmHg ABG pO2 (83-108) mmHg Sodium (137-145) mmol/L Potassium (3.5-5.1) mmol/L Carbon Dioxide (22-30) mmol/L BUN (9-20) mg/dL Creatinine (0.66-1.25) mg/dL Glucose (74-99) mg/dL POC Glucose (mg/dL) 170 H 178 H 179 H (75-99) mg/dL Calcium (8.4-10.2) mg/dL Microbiology - Last 24 Hours (Table) 10/22/21 06:01 Blood Culture Gram Stain - Preliminary Blood Blood Culture - Preliminary Presumptive Staph aureus 10/21/21 10:37 Blood Culture Gram Stain - Preliminary Blood Blood Culture - Preliminary Staphylococcus aureus 10/21/21 10:00 Urine Culture - Preliminary Urine,Voided Presumptive Staph aureus 10/22/21 05:52 Blood Culture - Final Blood Assessment and Plan (1) Troponin level elevated Current Visit: Yes Status: Acute Code(s): R77.8 - OTHER SPECIFIED ABNORMALITIES OF PLASMA PROTEINS SNOMED Code(s): 736775233 (2) IRIS (acute kidney injury) Current Visit: Yes Status: Acute Code(s): N17.9 - ACUTE KIDNEY FAILURE, UNSPECIFIED SNOMED Code(s): 75538177 (3) Encephalopathy acute Current Visit: No Status: Acute Code(s): G93.40 - ENCEPHALOPATHY, UNSPECIFIED SNOMED Code(s): 14282183 (4) Diabetes mellitus Current Visit: No Status: Chronic Code(s): E11.9 - TYPE 2 DIABETES MELLITUS WITHOUT COMPLICATIONS SNOMED Code(s): 24667597 (5) Diastolic CHF Current Visit: Yes Status: Acute Code(s): I50.30 - UNSPECIFIED DIASTOLIC (CONGESTIVE) HEART FAILURE SNOMED Code(s): 083761692 Plan: Echo cardiogram showed normal LV function without any segmental wall motion defects. Troponin elevation is felt to be secondary to renal failure. No acute cardiac intervention at this time. We'll follow as needed. 10/23/2021: Patient is confused and appears to be in [id number] res piratory distress. He an output is low and creatinine is high. Will get a chest x-ray to rule out CHF. If that is the case, we'll may have to cut back the fluids and may consider dialysis.
[2021-10-23 13:00] LABS: Glucose,Whole Blood 175 mg/dL (75-99)
--- NOTE | 2021-10-23 13:23 | P.PN ---
Subjective Progress Note Date: 10/23/21 Principal diagnosis: Rule out sepsis. Pulmonary consult dated 10/21/2021. 55-year-old male with a history of diabetes, type I, hypertension, chronic kidney disease, COPD, dementia, alcohol abuse, and crack cocaine use. The patient presented to the emergency room, with weakness, inability to stand, mental status changes, mild temperature elevation, and confusion. The patient used to see Dr. Monteiro, but now sees a nurse practitioner by the name of Lo Meraz. The patient is seen in the emergency room, room 28. I was called down there by one of my ICU nurses. Apparently the primary care physician thought the patient should be better suited in the intensive care unit for further monitoring and management. I was not called by the primary doctor but rather the nurse. When I went down there, the patient was on room air. He was getting saline bolus at 1 L. Sodium bicarbonate drip had been written for, but the criminal judge did not want it started. The patient was not able to give any coherent history. The is at the bedside. She gave most of the history. The patient is on an insulin pump typically for his diabetes. He does use crack cocaine every day, drinks a fifth of vodka every day, and smokes a pack and a half to 2 packs of cigarettes every day. White count 8.6, hemoglobin 11.7, hematocrit 35.5, and platelet count of 127,000. Sodium 128, potassium 3.5, chlorides 97, CO2 14, anion gap 17, BUN 74, creatinine 2.65. Initial lactic acid 1.8. Troponin 0.129. AST 282. ALT 77. Testing for influenza A, and B, both negative. Coronavirus testing was also negative. Urine showed 1+ protein, 4+ glucose, and a positive urine nitrite, positive leukocyte esterase, 13 WBCs, and rare bacteria. Brain CT showed nothing acute. Chest x-ray was normal. The patient's temperature, was 100.9. Progress note dated 10/22/2021. This is a 55-year-old male seen yesterday in the emergency department. He has a history of diabetes, type I, hypertension, chronic kidney disease, COPD, dementia, alcohol abuse, and crack cocaine abuse. The patient presented primarily with weakness, mental status changes, and a temperature elevation, as well as confusion and agitation. Patient was transferred to the intensive care unit for further monitoring and management. Blood gases on 32% show pO2 of 54, pCO2 34, and a pH is 7.42. He is currently high flow nasal cannula. At 10 L. He is also getting saline at 75 mL an hour, insulin at 9 units an hour, and norepinephrine at 2 mcg/m. There were gram-positive cocci in his blood. His current antibiotics include vancomycin, daptomycin, and Zosyn. Currently white count 9.1, hemoglobin 10.1, hematocrit 31.1, and platelet count 99,000. Sodium 131, potassium 2.9, chlorides 99, CO2 22, BUN 73, and creatinine 2.89. Troponin levels were 0.129, and 0.162. Albumin is 2.4. There was no chest x-ray today. Progress note dated 10/23/2021. 55-year-old male who was initially seen in the emergency department. He has a history of diabetes, hypertension, chronic kidney disease, COPD, dementia, c hronic alcohol abuse, and crack cocaine abuse. The patient was admitted to the intensive care unit for further monitoring and management. Remains on 10 L high flow oxygen. He is on an insulin drip at 4.5 units an hour, saline at 75 mL an hour, and dexmedetomidine 0.5 mcg/kg/h. The norepinephrine has been weaned off. The patient's overall mental status remains relatively poor and therefore I've asked the nurse to try to wean down the dexmedetomidine to further evaluate the patient. We believe, the patient could be going through some withdrawal. White count 11.5, hemoglobin 11.4, hematocrit 36.9, platelet count 220,000. Sodium 135, potassium 4.2, chlorides 103, CO2 20, BUN 86, with creatinine 3.56. Nephrology has been consulted. Chest x-ray is consistent with mild CHF. Ultrasound of the abdomen revealed no evidence of gallstones or dilated ducts. Objective - Vital Signs Vital signs: Vital Signs Temp 99.0 F 10/23/21 12:00 Pulse 92 10/23/21 13:00 Resp 32 H 10/23/21 13:00 BP 96/61 10/23/21 13:00 Pulse Ox 97 10/23/21 13:00 FiO2 Intake & Output 10/22/21 10/23/21 10/23/21 18:59 06:59 18:59 Intake Total 2228.783 1305.628 690.732 Output Total 585 75 465 Balance 0373.297 8122.628 225.732 Weight 111.1 kg 118.2 kg Intake: IV 2045 1150 575 .9 @ 20 20 ACETAMINOPHEN IV (For NPO 100 ) 1,000 mg In Empty Bag 1 bag @ 400 mls/hr IVPB ONCE [facility] Rx#:[id number] Dextrose 5% in Water 1, 300 000 ml @ 100 mls/hr IV . [id number] [facility] with Sodium Bicarb (1 Meq/ml) 150 ml Rx#:[id number] Piperacillin-Tazobactam 3 200 .375 gm In Sodium Chloride 0.9% 100 ml @ 25 mls/hr IVPB Q8HR [facility] Rx# :[id number] Potassium Chloride 10 meq 700 200 In Water For Injection 1 100ml.bag @ 100 mls/hr IVPB Q1HR [facility] Rx#: [id number] Sodium Chloride 0.9% 1, 675 900 525 000 ml @ 75 mls/hr IV . [id number] [facility] Rx#:[id number] ceFAZolin 2 gm In Sodium 50 50 50 Chloride 0.9% 50 ml @ 100 mls/hr IVPB Q12HR [facility] Rx #:[id number] Intake, IV Titration 183.783 155.628 115.732 Amount Dexmedetomidine/0.9% NaCl 66.569 100.000 94.993 (Pmx) 400 mcg In Empty Bag 1 bag @ 0.2 MCG/KG/HR 5.555 mls/hr IV .Q18H1M [facility] Rx#:[id number] Insulin Regular 100 unit 61.576 48.860 20.739 In Sodium Chloride 0.9% 100 ml @ Per Protocol IV .Q0M [facility] Rx#:[id number] Norepinephrine 4 mg In 55.638 6.768 Sodium Chloride 0.9% 250 ml @ 0.05 MCG/KG/MIN 20. 306 mls/hr IV .[id number] [facility] Rx#:[id number] Output: Urine 585 75 465 Other: Voiding Method Indwelling Catheter Indwelling Catheter Indwelling Catheter - Exam Sedated, currently on dexmedetomidine. Much less agitated. Probable active withdrawal symptoms. HEENT examination is grossly unremarkable. Neck supple. Full range of motion. No adenopathy thyromegaly or neck vein distention. Cardiovascular examination reveals regular rhythm rate. S1-S2 normal. No S3 or S4. No discernible murmur noted. Heart rate 92 bpm. Lungs reveal scattered bilateral rhonchi. Breath sounds equal. No wheezes. 6 L nasal O2 saturation is 97 %. Abdomen is obese. No bowel sounds. No tenderness. No masses. Extremities are intact. No cyanosis clubbing or edema. Skin is without rash or lesion. Neurologic examination cannot be properly assessed. He does move all 4 extremities. Less agitation. Unable to provide any additional history. - Labs CBC & Chem 7: 10/23/21 05:50 10/23/21 05:50 Labs: Abnormal Lab Results - Last 24 Hours (Table) 10/22/21 10/22/21 10/22/21 Range/Units 13:21 14:59 16:05 WBC (3.8-10.6) k/uL RBC (4.30-5.90) m/uL Hgb (13.0-17.5) gm/dL Hct (39.0-53.0) % MCV (80.0-100.0) fL Plt Count (150-450) k/uL Neutrophils # (Manual) (1.3-7.7) k/uL Monocytes # (Manual) (0-1.0) k/uL ABG pCO2 33 L (35-45) mmHg ABG pO2 69 L (83-108) mmHg Sodium (137-145) mmol/L Potassium (3.5-5.1) mmol/L Carbon Dioxide (22-30) mmol/L BUN (9-20) mg/dL Creatinine (0.66-1.25) mg/dL Glucose (74-99) mg/dL POC Glucose (mg/dL) 237 H 216 H (75-99) mg/dL Calcium (8.4-10.2) mg/dL 10/22/21 10/22/21 10/22/21 Range/Units 16:50 16:56 18:03 WBC (3.8-10.6) k/uL RBC (4.30-5.90) m/uL Hgb (13.0-17.5) gm/dL Hct (39.0-53.0) % MCV (80.0-100.0) fL Plt Count (150-450) k/uL Neutrophils # (Manual) (1.3-7.7) k/uL Monocytes # (Manual) (0-1.0) k/uL ABG pCO2 (35-45) mmHg ABG pO2 (83-108) mmHg Sodium (137-145) mmol/L Potassium 3.4 L (3.5-5.1) mmol/L Carbon Dioxide (22-30) mmol/L BUN (9-20) mg/dL Creatinine (0.66-1.25) mg/dL Glucose (74-99) mg/dL POC Glucose (mg/dL) 190 H 176 H (75-99) mg/dL Calcium (8.4-10.2) mg/dL 10/22/21 10/22/21 10/22/21 Range/Units 19:05 19:56 21:21 WBC (3.8-10.6) k/uL RBC (4.30-5.90) m/uL Hgb (13.0-17.5) gm/dL Hct (39.0-53.0) % MCV (80.0-100.0) fL Plt Count (150-450) k/uL Neutrophils # (Manual) (1.3-7.7) k/uL Monocytes # (Manual) (0-1.0) k/uL ABG pCO2 (35-45) mmHg ABG pO2 (83-108) mmHg Sodium (137-145) mmol/L Potassium (3.5-5.1) mmol/L Carbon Dioxide (22-30) mmol/L BUN (9-20) mg/dL Creatinine (0.66-1.25) mg/dL Glucose (74-99) mg/dL POC Glucose (mg/dL) 129 H 167 H 208 H (75-99) mg/dL Calcium (8.4-10.2) mg/dL 10/22/21 10/22/21 10/23/21 Range/Units 22:14 23:22 00:24 WBC (3.8-10.6) k/uL RBC (4.30-5.90) m/uL Hgb (13.0-17.5) gm/dL Hct (39.0-53.0) % MCV (80.0-100.0) fL Plt Count (150-450) k/uL Neutrophils # (Manual) (1.3-7.7) k/uL Monocytes # (Manual) (0-1.0) k/uL ABG pCO2 (35-45) mmHg ABG pO2 (83-108) mmHg Sodium (137-145) mmol/L Potassium (3.5-5.1) mmol/L Carbon Dioxide (22-30) mmol/L BUN (9-20) mg/dL Creatinine (0.66-1.25) mg/dL Glucose (74-99) mg/dL POC Glucose (mg/dL) 156 H 158 H 186 H (75-99) mg/dL Calcium (8.4-10.2) mg/dL 10/23/21 10/23/21 10/23/21 Range/Units 01:17 02:12 03:54 WBC (3.8-10.6) k/uL RBC (4.30-5.90) m/uL Hgb (13.0-17.5) gm/dL Hct (39.0-53.0) % MCV (80.0-100.0) fL Plt Count (150-450) k/uL Neutrophils # (Manual) (1.3-7.7) k/uL Monocytes # (Manual) (0-1.0) k/uL ABG pCO2 (35-45) mmHg ABG pO2 (83-108) mmHg Sodium (137-145) mmol/L Potassium (3.5-5.1) mmol/L Carbon Dioxide (22-30) mmol/L BUN (9-20) mg/dL Creatinine (0.66-1.25) mg/dL Glucose (74-99) mg/dL POC Glucose (mg/dL) 186 H 176 H 188 H (75-99) mg/dL Calcium (8.4-10.2) mg/dL 10/23/21 10/23/21 10/23/21 Range/Units 05:07 05:50 05:50 WBC 11.5 H (3.8-10.6) k/uL RBC 3.63 L (4.30-5.90) m/uL Hgb 11.4 L (13.0-17.5) gm/dL Hct 36.9 L (39.0-53.0) % MCV 101.6 H (80.0-100.0) fL Plt Count 120 L (150-450) k/uL Neutrophils # (Manual) 8.90 H (1.3-7.7) k/uL Monocytes # (Manual) 1.38 H (0-1.0) k/uL ABG pCO2 (35-45) mmHg ABG pO2 (83-108) mmHg Sodium 135 L (137-145) mmol/L Potassium (3.5-5.1) mmol/L Carbon Dioxide 20 L (22-30) mmol/L BUN 86 H (9-20) mg/dL Creatinine 3.56 H (0.66-1.25) mg/dL Glucose 134 H (74-99) mg/dL POC Glucose (mg/dL) 142 H (75-99) mg/dL Calcium 8.1 L (8.4-10.2) mg/dL 10/23/21 10/23/21 10/23/21 Range/Units 05:53 07:08 07:55 WBC (3.8-10.6) k/uL RBC (4.30-5.90) m/uL Hgb (13.0-17.5) gm/dL Hct (39.0-53.0) % MCV (80.0-100.0) fL Plt Count (150-450) k/uL Neutrophils # (Manual) (1.3-7.7) k/uL Monocytes # (Manual) (0-1.0) k/uL ABG pCO2 (35-45) mmHg ABG pO2 (83-108) mmHg Sodium (137-145) mmol/L Potassium (3.5-5.1) mmol/L Carbon Dioxide (22-30) mmol/L BUN (9-20) mg/dL Creatinine (0.66-1.25) mg/dL Glucose (74-99) mg/dL POC Glucose (mg/dL) 129 H 146 H 170 H (75-99) mg/dL Calcium (8.4-10.2) mg/dL 10/23/21 10/23/21 10/23/21 Range/Units 09:06 11:01 11:55 WBC (3.8-10.6) k/uL RBC (4.30-5.90) m/uL Hgb (13.0-17.5) gm/dL Hct (39.0-53.0) % MCV (80.0-100.0) fL Plt Count (150-450) k/uL Neutrophils # (Manual) (1.3-7.7) k/uL Monocytes # (Manual) (0-1.0) k/uL ABG pCO2 (35-45) mmHg ABG pO2 (83-108) mmHg Sodium (137-145) mmol/L Potassium (3.5-5.1) mmol/L Carbon Dioxide (22-30) mmol/L BUN (9-20) mg/dL Creatinine (0.66-1.25) mg/dL Glucose (74-99) mg/dL POC Glucose (mg/dL) 178 H 179 H 156 H (75-99) mg/dL Calcium (8.4-10.2) mg/dL 10/23/21 Range/Units 12:58 WBC (3.8-10.6) k/uL RBC (4.30-5.90) m/uL Hgb (13.0-17.5) gm/dL Hct (39.0-53.0) % MCV (80.0-100.0) fL Plt Count (150-450) k/uL Neutrophils # (Manual) (1.3-7.7) k/uL Monocytes # (Manual) (0-1.0) k/uL ABG pCO2 (35-45) mmHg ABG pO2 (83-108) mmHg Sodium (137-145) mmol/L Potassium (3.5-5.1) mmol/L Carbon Dioxide (22-30) mmol/L BUN (9-20) mg/dL Creatinine (0.66-1.25) mg/dL Glucose (74-99) mg/dL POC Glucose (mg/dL) 175 H (75-99) mg/dL Calcium (8.4-10.2) mg/dL Microbiology - Last 24 Hours (Table) 10/22/21 06:01 Blood Culture Gram Stain - Preliminary Blood Blood Culture - Preliminary Presumptive Staph aureus 10/21/21 10:37 Blood Culture Gram Stain - Preliminary Blood Blood Culture - Preliminary Staphylococcus aureus 10/21/21 10:00 Urine Culture - Preliminary Urine,Voided Presumptive Staph aureus 10/22/21 05:52 Blood Culture - Final Blood Assessment and Plan Assessment: Mental status changes, confusion, and agitation, with elevated blood sugars, and possible underlying sepsis/urinary tract infection. Blood cultures and urine cultures, positive for presumptive staph aureus. Diabetic ketoacidosis. Delirium tremens History of type 1 diabetes mellitus, managed with insulin. Anion gap metabolic acidosis, likely related to kidney injury, and/or DKA. Elevated troponin level. History of chronic kidney disease. History of COPD from ongoing and heavy tobacco use. History of dementia. History of chronic alcohol abuse, drinking 1/5 of vodka daily. Daily crack cocaine use. Dilutional hyponatremia. Plan: Plan dated 10/21/2021. The patient will be transferred to the intensive care unit for further monitoring and management. The patient be given fluids and an insulin drip. The patient should be started on antibiotics. Labs x-rays, and medications are all reviewed. Prognosis is certainly guarded. The patient may have significant withdrawal-like symptoms given his chronic tobacco, alcohol, and crack cocaine use. We will continue to follow make recommendations where appropriate. Prognosis is certainly guarded. Plan dated 10/22/2021. The patient's blood cultures show gram-positive cocci. The patient remains on vancomycin, daptomycin, and Zosyn for now. Infectious diseases will be consulted for additional recommendations regarding antibiotic management. Labs, x-rays, and medications are reviewed. The patient's overall prognosis remains free guarded. We will continue to follow make recommendations where appropriate. The patient remains on insulin drip, saline, and norepinephrine. Plan dated 10/23/2021. The patient is being treated for sepsis, and is receiving vancomycin. The patient will be seen by infectious diseases. The patient is also being treated for active withdrawal. The patient remains on the DuoNeb. The patient also remains on dexmedetomidine at 0.5 mcg/kg/h. We will continue to follow make recommendations where appropriate. The patient is receiving Ativan per protocol. Is guarded. The patient may need intubation should he deteriorate further. I did explain that to the patient's . Time with Patient: Greater than 30
[2021-10-23 14:04] LABS: Glucose,Whole Blood 197 mg/dL (75-99)
[2021-10-23 15:01] LABS: Glucose,Whole Blood 208 mg/dL (75-99)
[2021-10-23 15:54] LABS: Glucose,Whole Blood 225 mg/dL (75-99)
[2021-10-23 17:02] LABS: Glucose,Whole Blood 288 mg/dL (75-99)
[2021-10-23 17:55] LABS: Glucose,Whole Blood 199 mg/dL (75-99)
[2021-10-23 18:58] LABS: Glucose,Whole Blood 191 mg/dL (75-99)
[2021-10-23 20:03] LABS: Glucose,Whole Blood 179 mg/dL (75-99)
[2021-10-23 21:00] LABS: Glucose,Whole Blood 178 mg/dL (75-99)
[2021-10-23 22:05] LABS: Glucose,Whole Blood 142 mg/dL (75-99)
[2021-10-23] MEDS ORDERED: VANCOMYCIN 1,750 MG in SODIUM CHLORIDE 0.9% 500 ML 500 ML IVPB SCH (23:00)
[2021-10-23 23:13] LABS: Glucose,Whole Blood 142 mg/dL (75-99)
[2021-10-23 23:58] LABS: Glucose,Whole Blood 130 mg/dL (75-99)
[2021-10-24 00:23] LABS: Glucose,Whole Blood 133 mg/dL (75-99)
[2021-10-24 01:21] LABS: Glucose,Whole Blood 138 mg/dL (75-99)
[2021-10-24 02:16] LABS: Glucose,Whole Blood 134 mg/dL (75-99)
[2021-10-24] MEDS: LORazepam 2 MG/ML INJ IV PRN ×9 (02:45→21:24)
[2021-10-24 03:17] LABS: Glucose,Whole Blood 166 mg/dL (75-99)
[2021-10-24] MEDS: DEXMEDETOMIDINE/0.9% NACL(PMX) 400 MCG in EMPTY BAG 1 BAG IV SCH ×2 (03:44→14:53)
[2021-10-24 04:05] LABS: Glucose,Whole Blood 165 mg/dL (75-99)
[2021-10-24 05:56] LABS: Glucose,Whole Blood 129 mg/dL (75-99)
[2021-10-24] MEDS: NOREPINEPHRINE 4 MG in SODIUM CHLORIDE 0.9% 250 ML IV SCH ×2 (06:03→14:02)
[2021-10-24] MEDS: SODIUM CHLORIDE 0.9% 1,000 ML IV SCH (06:03)
--- NOTE | 2021-10-24 06:22 | P.PN ---
Subjective Progress Note Date: 10/23/21 Patient was seen for a follow-up. Patient's parents were also present today. Patient had a rough day yesterday, but today slightly better. Patient still appears encephalopathic. Patient currently on Precedex 0.3 mcg/mg/m. He is still undergoing withdrawals. Sometimes has garbled speech. Patient offers no complaints. Objective - Vital Signs Vital signs: Vital Signs Temp 99.0 F 10/23/21 12:00 Pulse 87 10/23/21 14:00 Resp 30 H 10/23/21 14:00 BP 103/63 10/23/21 14:00 Pulse Ox 98 10/23/21 14:00 FiO2 Intake & Output 10/22/21 10/23/21 10/23/21 18:59 06:59 18:59 Intake Total 2228.783 1305.628 770.739 Output Total 585 75 565 Balance 8127.804 1104.628 205.739 Weight 111.1 kg 118.2 kg Intake: IV 2045 1150 650 .9 @ 20 20 ACETAMINOPHEN IV (For NPO 100 ) 1,000 mg In Empty Bag 1 bag @ 400 mls/hr IVPB ONCE STA Rx#:[id number] Dextrose 5% in Water 1, 300 000 ml @ 100 mls/hr IV . [id number] [facility] with Sodium Bicarb (1 Meq/ml) 150 ml Rx#:[id number] Piperacillin-Tazobactam 3 200 .375 gm In Sodium Chloride 0.9% 100 ml @ 25 mls/hr IVPB Q8HR [facility] Rx# :[id number] Potassium Chloride 10 meq 700 200 In Water For Injection 1 100ml.bag @ 100 mls/hr IVPB Q1HR [facility] Rx#: [id number] Sodium Chloride 0.9% 1, 675 900 600 000 ml @ 75 mls/hr IV . [id number] [facility] Rx#:[id number] ceFAZolin 2 gm In Sodium 50 50 50 Chloride 0.9% 50 ml @ 100 mls/hr IVPB Q12HR [facility] Rx #:[id number] Intake, IV Titration 183.783 155.628 120.739 Amount Dexmedetomidine/0.9% NaCl 66.569 100.000 100.000 (Pmx) 400 mcg In Empty Bag 1 bag @ 0.2 MCG/KG/HR 5.555 mls/hr IV .Q18H1M [facility] Rx#:[id number] Insulin Regular 100 unit 61.576 48.860 20.739 In Sodium Chloride 0.9% 100 ml @ Per Protocol IV .Q0M [facility] Rx#:[id number] Norepinephrine 4 mg In 55.638 6.768 Sodium Chloride 0.9% 250 ml @ 0.05 MCG/KG/MIN 20. 306 mls/hr IV .[id number] [facility] Rx#:[id number] Output: Urine 585 75 565 Other: Voiding Method Indwelling Catheter Indwelling Catheter Indwelling Catheter - Exam Patient is encephalopathic, knows his name, his date of and that he is in [facility]. He could not tell the current month or year. Appears significant a decreased concentration, attention span. His speech was clear. He sometimes mumbles. Patient's face is symmetric. Pupils are equal, round and reacting. [employer] is equal bilaterally although he did not cooperate well. He wiggles his feet very equally. Reflexes symmetric. Tone is equal. No seizure- like activity documented. - Labs CBC & Chem 7: 10/23/21 05:50 10/23/21 05:50 Labs: Abnormal Lab Results - Last 24 Hours (Table) 10/22/21 10/22/21 10/22/21 Range/Units 14:59 16:05 16:50 WBC (3.8-10.6) k/uL RBC (4.30-5.90) m/uL Hgb (13.0-17.5) gm/dL Hct (39.0-53.0) % MCV (80.0-100.0) fL Plt Count (150-450) k/uL Neutrophils # (Manual) (1.3-7.7) k/uL Monocytes # (Manual) (0-1.0) k/uL Sodium (137-145) mmol/L Potassium 3.4 L (3.5-5.1) mmol/L Carbon Dioxide (22-30) mmol/L BUN (9-20) mg/dL Creatinine (0.66-1.25) mg/dL Glucose (74-99) mg/dL POC Glucose (mg/dL) 237 H 216 H (75-99) mg/dL Calcium (8.4-10.2) mg/dL 10/22/21 10/22/21 10/22/21 Range/Units 16:56 18:03 19:05 WBC (3.8-10.6) k/uL RBC (4.30-5.90) m/uL Hgb (13.0-17.5) gm/dL Hct (39.0-53.0) % MCV (80.0-100.0) fL Plt Count (150-450) k/uL Neutrophils # (Manual) (1.3-7.7) k/uL Monocytes # (Manual) (0-1.0) k/uL Sodium (137-145) mmol/L Potassium (3.5-5.1) mmol/L Carbon Dioxide (22-30) mmol/L BUN (9-20) mg/dL Creatinine (0.66-1.25) mg/dL Glucose (74-99) mg/dL POC Glucose (mg/dL) 190 H 176 H 129 H (75-99) mg/dL Calcium (8.4-10.2) mg/dL 10/22/21 10/22/21 10/22/21 Range/Units 19:56 21:21 22:14 WBC (3.8-10.6) k/uL RBC (4.30-5.90) m/uL Hgb (13.0-17.5) gm/dL Hct (39.0-53.0) % MCV (80.0-100.0) fL Plt Count (150-450) k/uL Neutrophils # (Manual) (1.3-7.7) k/uL Monocytes # (Manual) (0-1.0) k/uL Sodium (137-145) mmol/L Potassium (3.5-5.1) mmol/L Carbon Dioxide (22-30) mmol/L BUN (9-20) mg/dL Creatinine (0.66-1.25) mg/dL Glucose (74-99) mg/dL POC Glucose (mg/dL) 167 H 208 H 156 H (75-99) mg/dL Calcium (8.4-10.2) mg/dL 10/22/21 10/23/21 10/23/21 Range/Units 23:22 00:24 01:17 WBC (3.8-10.6) k/uL RBC (4.30-5.90) m/uL Hgb (13.0-17.5) gm/dL Hct (39.0-53.0) % MCV (80.0-100.0) fL Plt Count (150-450) k/uL Neutrophils # (Manual) (1.3-7.7) k/uL Monocytes # (Manual) (0-1.0) k/uL Sodium (137-145) mmol/L Potassium (3.5-5.1) mmol/L Carbon Dioxide (22-30) mmol/L BUN (9-20) mg/dL Creatinine (0.66-1.25) mg/dL Glucose (74-99) mg/dL POC Glucose (mg/dL) 158 H 186 H 186 H (75-99) mg/dL Calcium (8.4-10.2) mg/dL 10/23/21 10/23/21 10/23/21 Range/Units 02:12 03:54 05:07 WBC (3.8-10.6) k/uL RBC (4.30-5.90) m/uL Hgb (13.0-17.5) gm/dL Hct (39.0-53.0) % MCV (80.0-100.0) fL Plt Count (150-450) k/uL Neutrophils # (Manual) (1.3-7.7) k/uL Monocytes # (Manual) (0-1.0) k/uL Sodium (137-145) mmol/L Potassium (3.5-5.1) mmol/L Carbon Dioxide (22-30) mmol/L BUN (9-20) mg/dL Creatinine (0.66-1.25) mg/dL Glucose (74-99) mg/dL POC Glucose (mg/dL) 176 H 188 H 142 H (75-99) mg/dL Calcium (8.4-10.2) mg/dL 10/23/21 10/23/21 10/23/21 Range/Units 05:50 05:50 05:53 WBC 11.5 H (3.8-10.6) k/uL RBC 3.63 L (4.30-5.90) m/uL Hgb 11.4 L (13.0-17.5) gm/dL Hct 36.9 L (39.0-53.0) % MCV 101.6 H (80.0-100.0) fL Plt Count 120 L (150-450) k/uL Neutrophils # (Manual) 8.90 H (1.3-7.7) k/uL Monocytes # (Manual) 1.38 H (0-1.0) k/uL Sodium 135 L (137-145) mmol/L Potassium (3.5-5.1) mmol/L Carbon Dioxide 20 L (22-30) mmol/L BUN 86 H (9-20) mg/dL Creatinine 3.56 H (0.66-1.25) mg/dL Glucose 134 H (74-99) mg/dL POC Glucose (mg/dL) 129 H (75-99) mg/dL Calcium 8.1 L (8.4-10.2) mg/dL 10/23/21 10/23/21 10/23/21 Range/Units 07:08 07:55 09:06 WBC (3.8-10.6) k/uL RBC (4.30-5.90) m/uL Hgb (13.0-17.5) gm/dL Hct (39.0-53.0) % MCV (80.0-100.0) fL Plt Count (150-450) k/uL Neutrophils # (Manual) (1.3-7.7) k/uL Monocytes # (Manual) (0-1.0) k/uL Sodium (137-145) mmol/L Potassium (3.5-5.1) mmol/L Carbon Dioxide (22-30) mmol/L BUN (9-20) mg/dL Creatinine (0.66-1.25) mg/dL Glucose (74-99) mg/dL POC Glucose (mg/dL) 146 H 170 H 178 H (75-99) mg/dL Calcium (8.4-10.2) mg/dL 10/23/21 10/23/21 10/23/21 Range/Units 11:01 11:55 12:58 WBC (3.8-10.6) k/uL RBC (4.30-5.90) m/uL Hgb (13.0-17.5) gm/dL Hct (39.0-53.0) % MCV (80.0-100.0) fL Plt Count (150-450) k/uL Neutrophils # (Manual) (1.3-7.7) k/uL Monocytes # (Manual) (0-1.0) k/uL Sodium (137-145) mmol/L Potassium (3.5-5.1) mmol/L Carbon Dioxide (22-30) mmol/L BUN (9-20) mg/dL Creatinine (0.66-1.25) mg/dL Glucose (74-99) mg/dL POC Glucose (mg/dL) 179 H 156 H 175 H (75-99) mg/dL Calcium (8.4-10.2) mg/dL 10/23/21 Range/Units 14:01 WBC (3.8-10.6) k/uL RBC (4.30-5.90) m/uL Hgb (13.0-17.5) gm/dL Hct (39.0-53.0) % MCV (80.0-100.0) fL Plt Count (150-450) k/uL Neutrophils # (Manual) (1.3-7.7) k/uL Monocytes # (Manual) (0-1.0) k/uL Sodium (137-145) mmol/L Potassium (3.5-5.1) mmol/L Carbon Dioxide (22-30) mmol/L BUN (9-20) mg/dL Creatinine (0.66-1.25) mg/dL Glucose (74-99) mg/dL POC Glucose (mg/dL) 197 H (75-99) mg/dL Calcium (8.4-10.2) mg/dL Microbiology - Last 24 Hours (Table) 10/22/21 06:01 Blood Culture Gram Stain - Preliminary Blood Blood Culture - Preliminary Presumptive Staph aureus 10/21/21 10:37 Blood Culture Gram Stain - Preliminary Blood Blood Culture - Preliminary Staphylococcus aureus 10/21/21 10:00 Urine Culture - Preliminary Urine,Voided Presumptive Staph aureus 10/22/21 05:52 Blood Culture - Final Blood Assessment and Plan Assessment: * Altered mental status, likely due to toxic metabolic encephalopathy, slightly improved * Urosepsis with staph aureus. Blood cultures positive. * Delirium tremens. * Diabetic ketoacidosis * Type 1 diabetes, uncontrolled * Acute on chronic renal failure, worsening. * Chronic alcoholism * Diastolic Congestive heart failure * History of substance use with cocaine. * Macrocytosis into alcoholism * Elevated cardiac enzymes * Elevated liver enzymes Plan: * Patient's examination is nonfocal. His altered mental status is likely due to toxic metabolic encephalopathy due to multiple reasons as mentioned above. * Treatment of medical conditions as per IM and other specialties * 2-D echo revealed moderate LVH, normal left ventricular systolic function with EF 55-60%. Mild aortic stenosis, mild AR, mild TR, MR. Left atrium is normal in size. * emoglobin A1c 9.6, B12 1482, folate 13.90, TSH 1.080, ammonia 19. All normal * Urine drug screen pending. * Watch for alcohol withdrawal. * Thiamine, folic acid. * DVT prophylaxis as per IM/critical care. * Patient's neurological examination is stable. His encephalopathy will improve, after his metabolic conditions improves. * Neurology will sign off. Please reconsult if any other concerns. Discussed with patient's nurse.
[2021-10-24 07:04] LABS: Glucose,Whole Blood 133 mg/dL (75-99)
--- NOTE | 2021-10-24 07:42 | P.PN ---
Subjective Progress Note Date: 10/23/21 Principal diagnosis: Sepsis and bacteremia Patient is a 55-year-old male with a past medical history significant for insulin-dependent diabetes mellitus presented to hospital with weakness and mental status changes and elevated blood sugar, patient did have evidence of MSSA bacteremia. On today's evaluation that is 10/23/2021, patient fever pattern has improved, the patient is hemodynamically stable, currently on Precedex and sleeping comfortably, no vomiting no diarrhea or any other changes reported by the nursing staff Objective - Vital Signs Vital signs: Vital Signs Temp 99.0 F 10/23/21 12:00 Pulse 92 10/23/21 13:00 Resp 32 H 10/23/21 13:00 BP 96/61 10/23/21 13:00 Pulse Ox 97 10/23/21 13:00 FiO2 Intake & Output 10/22/21 10/23/21 10/23/21 18:59 06:59 18:59 Intake Total 2228.783 1305.628 690.732 Output Total 585 75 465 Balance 3657.919 1840.628 225.732 Weight 111.1 kg 118.2 kg Intake: IV 2045 1150 575 .9 @ 20 20 ACETAMINOPHEN IV (For NPO 100 ) 1,000 mg In Empty Bag 1 bag @ 400 mls/hr IVPB ONCE STA Rx#:[id number] Dextrose 5% in Water 1, 300 000 ml @ 100 mls/hr IV . [id number] [facility] with Sodium Bicarb (1 Meq/ml) 150 ml Rx#:[id number] Piperacillin-Tazobactam 3 200 .375 gm In Sodium Chloride 0.9% 100 ml @ 25 mls/hr IVPB Q8HR [facility] Rx# :[id number] Potassium Chloride 10 meq 700 200 In Water For Injection 1 100ml.bag @ 100 mls/hr IVPB Q1HR [facility] Rx#: [id number] Sodium Chloride 0.9% 1, 675 900 525 000 ml @ 75 mls/hr IV . [id number] [facility] Rx#:[id number] ceFAZolin 2 gm In Sodium 50 50 50 Chloride 0.9% 50 ml @ 100 mls/hr IVPB Q12HR [facility] Rx #:[id number] Intake, IV Titration 183.783 155.628 115.732 Amount Dexmedetomidine/0.9% NaCl 66.569 100.000 94.993 (Pmx) 400 mcg In Empty Bag 1 bag @ 0.2 MCG/KG/HR 5.555 mls/hr IV .Q18H1M [facility] Rx#:[id number] Insulin Regular 100 unit 61.576 48.860 20.739 In Sodium Chloride 0.9% 100 ml @ Per Protocol IV .Q0M [facility] Rx#:[id number] Norepinephrine 4 mg In 55.638 6.768 Sodium Chloride 0.9% 250 ml @ 0.05 MCG/KG/MIN 20. 306 mls/hr IV .[id number] [facility] Rx#:[id number] Output: Urine 585 75 465 Other: Voiding Method Indwelling Catheter Indwelling Catheter Indwelling Catheter - Exam GENERAL DESCRIPTION: Middle-aged male lying in bed in no distress RESPIRATORY SYSTEM: Unlabored breathing , decreased breath sounds at bases HEART: S1 S2 regular rate and rhythm , ABDOMEN: Soft , no tenderness EXTREMITIES: No edema feet - Labs CBC & Chem 7: 10/23/21 05:50 10/23/21 05:50 Labs: Abnormal Lab Results - Last 24 Hours (Table) 10/22/21 10/22/21 10/22/21 Range/Units 13:21 14:59 16:05 WBC (3.8-10.6) k/uL RBC (4.30-5.90) m/uL Hgb (13.0-17.5) gm/dL Hct (39.0-53.0) % MCV (80.0-100.0) fL Plt Count (150-450) k/uL Neutrophils # (Manual) (1.3-7.7) k/uL Monocytes # (Manual) (0-1.0) k/uL ABG pCO2 33 L (35-45) mmHg ABG pO2 69 L (83-108) mmHg Sodium (137-145) mmol/L Potassium (3.5-5.1) mmol/L Carbon Dioxide (22-30) mmol/L BUN (9-20) mg/dL Creatinine (0.66-1.25) mg/dL Glucose (74-99) mg/dL POC Glucose (mg/dL) 237 H 216 H (75-99) mg/dL Calcium (8.4-10.2) mg/dL 10/22/21 10/22/21 10/22/21 Range/Units 16:50 16:56 18:03 WBC (3.8-10.6) k/uL RBC (4.30-5.90) m/uL Hgb (13.0-17.5) gm/dL Hct (39.0-53.0) % MCV (80.0-100.0) fL Plt Count (150-450) k/uL Neutrophils # (Manual) (1.3-7.7) k/uL Monocytes # (Manual) (0-1.0) k/uL ABG pCO2 (35-45) mmHg ABG pO2 (83-108) mmHg Sodium (137-145) mmol/L Potassium 3.4 L (3.5-5.1) mmol/L Carbon Dioxide (22-30) mmol/L BUN (9-20) mg/dL Creatinine (0.66-1.25) mg/dL Glucose (74-99) mg/dL POC Glucose (mg/dL) 190 H 176 H (75-99) mg/dL Calcium (8.4-10.2) mg/dL 10/22/21 10/22/21 10/22/21 Range/Units 19:05 19:56 21:21 WBC (3.8-10.6) k/uL RBC (4.30-5.90) m/uL Hgb (13.0-17.5) gm/dL Hct (39.0-53.0) % MCV (80.0-100.0) fL Plt Count (150-450) k/uL Neutrophils # (Manual) (1.3-7.7) k/uL Monocytes # (Manual) (0-1.0) k/uL ABG pCO2 (35-45) mmHg ABG pO2 (83-108) mmHg Sodium (137-145) mmol/L Potassium (3.5-5.1) mmol/L Carbon Dioxide (22-30) mmol/L BUN (9-20) mg/dL Creatinine (0.66-1.25) mg/dL Glucose (74-99) mg/dL POC Glucose (mg/dL) 129 H 167 H 208 H (75-99) mg/dL Calcium (8.4-10.2) mg/dL 06/09/0910/22/21 10/23/21 Range/Units 22:14 23:22 00:24 WBC (3.8-10.6) k/uL RBC (4.30-5.90) m/uL Hgb (13.0-17.5) gm/dL Hct (39.0-53.0) % MCV (80.0-100.0) fL Plt Count (150-450) k/uL Neutrophils # (Manual) (1.3-7.7) k/uL Monocytes # (Manual) (0-1.0) k/uL ABG pCO2 (35-45) mmHg ABG pO2 (83-108) mmHg Sodium (137-145) mmol/L Potassium (3.5-5.1) mmol/L Carbon Dioxide (22-30) mmol/L BUN (9-20) mg/dL Creatinine (0.66-1.25) mg/dL Glucose (74-99) mg/dL POC Glucose (mg/dL) 156 H 158 H 186 H (75-99) mg/dL Calcium (8.4-10.2) mg/dL 10/23/21 10/23/21 10/23/21 Range/Units 01:17 02:12 03:54 WBC (3.8-10.6) k/uL RBC (4.30-5.90) m/uL Hgb (13.0-17.5) gm/dL Hct (39.0-53.0) % MCV (80.0-100.0) fL Plt Count (150-450) k/uL Neutrophils # (Manual) (1.3-7.7) k/uL Monocytes # (Manual) (0-1.0) k/uL ABG pCO2 (35-45) mmHg ABG pO2 (83-108) mmHg Sodium (137-145) mmol/L Potassium (3.5-5.1) mmol/L Carbon Dioxide (22-30) mmol/L BUN (9-20) mg/dL Creatinine (0.66-1.25) mg/dL Glucose (74-99) mg/dL POC Glucose (mg/dL) 186 H 176 H 188 H (75-99) mg/dL Calcium (8.4-10.2) mg/dL 10/23/21 10/23/21 10/23/21 Range/Units 05:07 05:50 05:50 WBC 11.5 H (3.8-10.6) k/uL RBC 3.63 L (4.30-5.90) m/uL Hgb 11.4 L (13.0-17.5) gm/dL Hct 36.9 L (39.0-53.0) % MCV 101.6 H (80.0-100.0) fL Plt Count 120 L (150-450) k/uL Neutrophils # (Manual) 8.90 H (1.3-7.7) k/uL Monocytes # (Manual) 1.38 H (0-1.0) k/uL ABG pCO2 (35-45) mmHg ABG pO2 (83-108) mmHg Sodium 135 L (137-145) mmol/L Potassium (3.5-5.1) mmol/L Carbon Dioxide 20 L (22-30) mmol/L BUN 86 H (9-20) mg/dL Creatinine 3.56 H (0.66-1.25) mg/dL Glucose 134 H (74-99) mg/dL POC Glucose (mg/dL) 142 H (75-99) mg/dL Calcium 8.1 L (8.4-10.2) mg/dL 10/23/21 10/23/21 10/23/21 Range/Units 05:53 07:08 07:55 WBC (3.8-10.6) k/uL RBC (4.30-5.90) m/uL Hgb (13.0-17.5) gm/dL Hct (39.0-53.0) % MCV (80.0-100.0) fL Plt Count (150-450) k/uL Neutrophils # (Manual) (1.3-7.7) k/uL Monocytes # (Manual) (0-1.0) k/uL ABG pCO2 (35-45) mmHg ABG pO2 (83-108) mmHg Sodium (137-145) mmol/L Potassium (3.5-5.1) mmol/L Carbon Dioxide (22-30) mmol/L BUN (9-20) mg/dL Creatinine (0.66-1.25) mg/dL Glucose (74-99) mg/dL POC Glucose (mg/dL) 129 H 146 H 170 H (75-99) mg/dL Calcium (8.4-10.2) mg/dL 10/23/21 10/23/21 10/23/21 Range/Units 09:06 11:01 11:55 WBC (3.8-10.6) k/uL RBC (4.30-5.90) m/uL Hgb (13.0-17.5) gm/dL Hct (39.0-53.0) % MCV (80.0-100.0) fL Plt Count (150-450) k/uL Neutrophils # (Manual) (1.3-7.7) k/uL Monocytes # (Manual) (0-1.0) k/uL ABG pCO2 (35-45) mmHg ABG pO2 (83-108) mmHg Sodium (137-145) mmol/L Potassium (3.5-5.1) mmol/L Carbon Dioxide (22-30) mmol/L BUN (9-20) mg/dL Creatinine (0.66-1.25) mg/dL Glucose (74-99) mg/dL POC Glucose (mg/dL) 178 H 179 H 156 H (75-99) mg/dL Calcium (8.4-10.2) mg/dL 10/23/21 Range/Units 12:58 WBC (3.8-10.6) k/uL RBC (4.30-5.90) m/uL Hgb (13.0-17.5) gm/dL Hct (39.0-53.0) % MCV (80.0-100.0) fL Plt Count (150-450) k/uL Neutrophils # (Manual) (1.3-7.7) k/uL Monocytes # (Manual) (0-1.0) k/uL ABG pCO2 (35-45) mmHg ABG pO2 (83-108) mmHg Sodium (137-145) mmol/L Potassium (3.5-5.1) mmol/L Carbon Dioxide (22-30) mmol/L BUN (9-20) mg/dL Creatinine (0.66-1.25) mg/dL Glucose (74-99) mg/dL POC Glucose (mg/dL) 175 H (75-99) mg/dL Calcium (8.4-10.2) mg/dL Microbiology - Last 24 Hours (Table) 06/04/22 06:01 Blood Culture Gram Stain - Preliminary Blood Blood Culture - Preliminary Presumptive Staph aureus 10/21/21 10:37 Blood Culture Gram Stain - Preliminary Blood Blood Culture - Preliminary Staphylococcus aureus 10/21/21 10:00 Urine Culture - Preliminary Urine,Voided Presumptive Staph aureus 10/22/21 05:52 Blood Culture - Final Blood Assessment and Plan (1) Bacteremia Current Visit: Yes Status: Acute Code(s): R78.81 - BACTEREMIA SNOMED Code(s): 1532715 Plan: 1patient presented to hospital with weakness in this patient did have a fever tachycardia meeting criteria for sepsis though initial work-up for a source has been negative with a negative UA chest x-ray did not show any acute abnormality patient abdominal was soft clinical examination and no evidence of any lower extremity cellulitis or joint swelling. Ultrasound negative for any hydronephrosis or cholecystitis 2 patient blood culture presumptive MSSA, patient to continue with the cefazolin, if persistent bacteremia and check echocardiogram Parents at the bedside and multiple questions were answered Time with Patient: Less than 30
[2021-10-24] MEDS: THIAMINE 100 MG/ML 2 ML VIAL IVP SCH ×2 (07:47→20:24)
[2021-10-24] MEDS: PANTOPRAZOLE 40 MG/10 ML VIAL IVP SCH (07:47)
[2021-10-24] MEDS: NICOTINE 21MG/24HR PATCH TRANSDERM SCH (07:48)
[2021-10-24 08:13] LABS: Glucose,Whole Blood 187 mg/dL (75-99)
[2021-10-24 08:23] LABS: Albumin 2.5 g/dL (3.5-5.0); Phosphorus 3.5 mg/dL (2.5-4.5); Potassium 3.6 mmol/L (3.5-5.1); Total Bilirubin 0.5 mg/dL (0.2-1.3); Total Protein 5.6 g/dL (6.3-8.2)
[2021-10-24 08:30] LABS: HCT 34.3 % (39.0-53.0); MCH 32.6 pg (25.0-35.0); MCV 101.9 fL (80.0-100.0); Macrocytosis Slight; Mean Platelet Volume 9.4; RBC 3.37 m/uL (4.30-5.90); RDW 14.4 % (11.5-15.5); WBC 10.2 k/uL (3.8-10.6)
[2021-10-24] MEDS: IPRATROPIUM-ALBUTEROL 3 ML NEB INHALATION SCH ×3 (08:33→19:25)
[2021-10-24 08:38] LABS: Platelet Count 193 k/uL (150-450)
--- NOTE | 2021-10-24 09:19 | P.PN ---
Subjective Progress Note Date: 10/24/21 The patient is a 55-year-old male who is currently admitted to the hospital with sepsis and acute renal failure. Cardiology was consulted for abnormal troponin. The patient has preserved LV function without wall motion abnormalities. The patient was examined in the ICU. He is currently only responsive to noxious stimuli. GENERAL: Ill-appearing, well-nourished. Moderate distress with labored breathi ng. NECK: Supple without JVD or thyromegaly. LUNGS: Breath sounds are coarse to auscultation. HEART: Regular rate and rhythm without murmurs, rubs or gallops. S1 and S2 heard. Notably tachycardic. EXTREMITIES: Normal range of motion, no edema. No clubbing or cyanosis. Peripheral pulses intact and strong. VITALS: Blood pressure 109/66, pulse, respiratory rate 34, SpO2 98% on 4 L high flow TELEMETRY: Sinus tachycardia LABS: WBC 10.2, hemoglobin 11.0, platelet 193, sodium 142, potassium 3.6, BUN 101, creatinine 2.8 by, calcium 8.0, AST 112, ALT IMPRESSION: Elevated troponins, not indicative of ACS, likely secondary to acute kidney injury Septicemia Acute kidney injury Mental status changes Diabetes mellitus PLAN: No further recommendations from the cardiac standpoint. The patient has a poor prognosis with multiple comorbid conditions. We will continue to follow on an as-needed basis. I am dictating on behalf of Dr De Loaiza's history/physical and assessment/plan. Objective - Vital Signs Vital signs: Vital Signs Temp 98.7 F 10/24/21 04:00 Pulse 98 10/24/21 08:48 Resp 34 H 10/24/21 07:00 BP 109/66 10/24/21 07:00 Pulse Ox 98 10/24/21 08:33 FiO2 Intake & Output 10/23/21 10/24/21 10/24/21 18:59 06:59 18:59 Intake Total 4089.848 1286.383 75 Output Total 1065 950 50 Balance 72.085 103.383 25 Weight 116.3 kg Intake: IV 950 900 75 Sodium Chloride 0.9% 1, 900 900 75 000 ml @ 75 mls/hr IV . [id number] [facility], [facility] Rx#:[id number] ceFAZolin 2 gm In Sodium 50 Chloride 0.9% 50 ml @ 100 mls/hr IVPB Q12HR [facility] Rx #:[id number] Intake, IV Titration 187.085 153.383 0 Amount Dexmedetomidine/0.9% NaCl 125.693 104.482 (Pmx) 400 mcg In Empty Bag 1 bag @ 0.2 MCG/KG/HR 5.555 mls/hr IV .Q18H1M [facility] Rx#:[id number] Insulin Regular 100 unit 61.392 48.901 0 In Sodium Chloride 0.9% 100 ml @ Per Protocol IV .Q0M [facility] Rx#:[id number] Output: Urine 1065 950 50 Other: Voiding Method Indwelling Catheter Indwelling Catheter - Labs CBC & Chem 7: 10/24/21 07:57 10/24/21 07:54 Labs: Abnormal Lab Results - Last 24 Hours (Table) 10/23/21 10/23/21 10/23/21 Range/Units 11:01 11:55 12:58 RBC (4.30-5.90) m/uL Hgb (13.0-17.5) gm/dL Hct (39.0-53.0) % MCV (80.0-100.0) fL Chloride (98-107) mmol/L Carbon Dioxide (22-30) mmol/L BUN (9-20) mg/dL Creatinine (0.66-1.25) mg/dL Glucose (74-99) mg/dL POC Glucose (mg/dL) 179 H 156 H 175 H (75-99) mg/dL Calcium (8.4-10.2) mg/dL AST (17-59) U/L Total Protein (6.3-8.2) g/dL Albumin (3.5-5.0) g/dL 10/23/21 10/23/21 10/23/21 Range/Units 14:01 14:59 15:52 RBC (4.30-5.90) m/uL Hgb (13.0-17.5) gm/dL Hct (39.0-53.0) % MCV (80.0-100.0) fL Chloride (98-107) mmol/L Carbon Dioxide (22-30) mmol/L BUN (9-20) mg/dL Creatinine (0.66-1.25) mg/dL Glucose (74-99) mg/dL POC Glucose (mg/dL) 197 H 208 H 225 H (75-99) mg/dL Calcium (8.4-10.2) mg/dL AST (17-59) U/L Total Protein (6.3-8.2) g/dL Albumin (3.5-5.0) g/dL 10/23/21 10/23/21 10/23/21 Range/Units 17:00 17:54 18:56 RBC (4.30-5.90) m/uL Hgb (13.0-17.5) gm/dL Hct (39.0-53.0) % MCV (80.0-100.0) fL Chloride (98-107) mmol/L Carbon Dioxide (22-30) mmol/L BUN (9-20) mg/dL Creatinine (0.66-1.25) mg/dL Glucose (74-99) mg/dL POC Glucose (mg/dL) 288 H 199 H 191 H (75-99) mg/dL Calcium (8.4-10.2) mg/dL AST (17-59) U/L Total Protein (6.3-8.2) g/dL Albumin (3.5-5.0) g/dL 10/23/21 10/23/21 10/23/21 Range/Units 20:01 20:58 22:04 RBC (4.30-5.90) m/uL Hgb (13.0-17.5) gm/dL Hct (39.0-53.0) % MCV (80.0-100.0) fL Chloride (98-107) mmol/L Carbon Dioxide (22-30) mmol/L BUN (9-20) mg/dL Creatinine (0.66-1.25) mg/dL Glucose (74-99) mg/dL POC Glucose (mg/dL) 179 H 178 H 142 H (75-99) mg/dL Calcium (8.4-10.2) mg/dL AST (17-59) U/L Total Protein (6.3-8.2) g/dL Albumin (3.5-5.0) g/dL 10/23/21 10/23/21 10/24/21 Range/Units 23:12 23:57 00:21 RBC (4.30-5.90) m/uL Hgb (13.0-17.5) gm/dL Hct (39.0-53.0) % MCV (80.0-100.0) fL Chloride (98-107) mmol/L Carbon Dioxide (22-30) mmol/L BUN (9-20) mg/dL Creatinine (0.66-1.25) mg/dL Glucose (74-99) mg/dL POC Glucose (mg/dL) 142 H 130 H 133 H (75-99) mg/dL Calcium (8.4-10.2) mg/dL AST (17-59) U/L Total Protein (6.3-8.2) g/dL Albumin (3.5-5.0) g/dL 10/24/21 10/24/21 10/24/21 Range/Units 01:19 02:15 03:15 RBC (4.30-5.90) m/uL Hgb (13.0-17.5) gm/dL Hct (39.0-53.0) % MCV (80.0-100.0) fL Chloride (98-107) mmol/L Carbon Dioxide (22-30) mmol/L BUN (9-20) mg/dL Creatinine (0.66-1.25) mg/dL Glucose (74-99) mg/dL POC Glucose (mg/dL) 138 H 134 H 166 H (75-99) mg/dL Calcium (8.4-10.2) mg/dL AST (17-59) U/L Total Protein (6.3-8.2) g/dL Albumin (3.5-5.0) g/dL 10/24/21 10/24/21 10/24/21 Range/Units 04:03 05:54 07:02 RBC (4.30-5.90) m/uL Hgb (13.0-17.5) gm/dL Hct (39.0-53.0) % MCV (80.0-100.0) fL Chloride (98-107) mmol/L Carbon Dioxide (22-30) mmol/L BUN (9-20) mg/dL Creatinine (0.66-1.25) mg/dL Glucose (74-99) mg/dL POC Glucose (mg/dL) 165 H 129 H 133 H (75-99) mg/dL Calcium (8.4-10.2) mg/dL AST (17-59) U/L Total Protein (6.3-8.2) g/dL Albumin (3.5-5.0) g/dL 10/24/21 10/24/21 10/24/21 Range/Units 07:54 07:57 08:11 RBC 3.37 L (4.30-5.90) m/uL Hgb 11.0 L (13.0-17.5) gm/dL Hct 34.3 L (39.0-53.0) % MCV 101.9 H (80.0-100.0) fL Chloride 109 H (98-107) mmol/L Carbon Dioxide 18 L (22-30) mmol/L BUN 101 H* (9-20) mg/dL Creatinine 2.85 H (0.66-1.25) mg/dL Glucose 181 H (74-99) mg/dL POC Glucose (mg/dL) 187 H (75-99) mg/dL Calcium 8.0 L (8.4-10.2) mg/dL AST 112 H (17-59) U/L Total Protein 5.6 L (6.3-8.2) g/dL Albumin 2.5 L (3.5-5.0) g/dL Microbiology - Last 24 Hours (Table) 10/23/21 05:50 Blood Culture - Preliminary Blood No Growth after 24 hours 10/21/21 10:00 Urine Culture - Final Urine,Voided Staphylococcus aureus 10/22/21 06:01 Blood Culture Gram Stain - Preliminary Blood Blood Culture - Preliminary Presumptive Staph aureus 10/21/21 10:37 Blood Culture Gram Stain - Preliminary Blood Blood Culture - Preliminary Staphylococcus aureus
[2021-10-24 09:28] LABS: Allen Test Performed? Yes
[2021-10-24 09:29] LABS: ABG Base Excess -7.7 mmol/L; ABG HCO3 17 mmol/L (21-25); ABG Oxygen Saturation 95.6 % (94-97); ABG PCO2 28 mmHg (35-45); ABG PH 7.39 (7.35-7.45); ABG PO2 74 mmHg (83-108); ABG TCO2 18 mmol/L (19-24)
[2021-10-24] MEDS ORDERED: FUROSEMIDE 10 MG/ML 4 ML VIAL IV STA (09:38)
[2021-10-24] MEDS ORDERED: SODIUM BICARB 8.4% 50 ML SYR (1 MEQ/ML) IV STA (09:39)
--- NOTE | 2021-10-24 09:40 | P.PN ---
Subjective Patient is seen in follow-up for acute kidney injury and chronic kidney disease. Renal function better today. Received 80 mg IV Lasix yesterday and urine output also improved. Now nonoliguric. Remains confused and lethargic. Not a reliable historian. Vital signs are stable. General: Patient is confused. HEENT: No JVD. LUNGS: Breath sounds decreased. HEART: Rate and Rhythm are regular. ABDOMEN: Soft, no distention. EXTREMITITES: Trace edema. Objective - Vital Signs Vital signs: Vital Signs Temp 98.7 F 10/24/21 04:00 Pulse 98 10/24/21 08:48 Resp 34 H 10/24/21 07:00 BP 109/66 10/24/21 07:00 Pulse Ox 98 10/24/21 08:33 FiO2 Intake & Output 10/23/21 10/24/21 10/24/21 18:59 06:59 18:59 Intake Total 1447.912 7207.383 75 Output Total 1065 950 50 Balance 72.085 103.383 25 Weight 116.3 kg Intake: IV 950 900 75 Sodium Chloride 0.9% 1, 900 900 75 000 ml @ 75 mls/hr IV . [id number] [facility] Rx#:[id number] ceFAZolin 2 gm In Sodium 50 Chloride 0.9% 50 ml @ 100 mls/hr IVPB Q12HR [facility] Rx #:[id number] Intake, IV Titration 187.085 153.383 0 Amount Dexmedetomidine/0.9% NaCl 125.693 104.482 (Pmx) 400 mcg In Empty Bag 1 bag @ 0.2 MCG/KG/HR 5.555 mls/hr IV .Q18H1M [facility] Rx#:[id number] Insulin Regular 100 unit 61.392 48.901 0 In Sodium Chloride 0.9% 100 ml @ Per Protocol IV .Q0M [facility] Rx#:[id number] Output: Urine 1065 950 50 Other: Voiding Method Indwelling Catheter Indwelling Catheter - Labs CBC & Chem 7: 10/24/21 07:57 10/24/21 07:54 Labs: Abnormal Lab Results - Last 24 Hours (Table) 10/23/21 10/23/21 10/23/21 Range/Units 11:01 11:55 12:58 RBC (4.30-5.90) m/uL Hgb (13.0-17.5) gm/dL Hct (39.0-53.0) % MCV (80.0-100.0) fL ABG pCO2 (35-45) mmHg ABG pO2 (83-108) mmHg ABG HCO3 (21-25) mmol/L ABG Total CO2 (19-24) mmol/L Chloride (98-107) mmol/L Carbon Dioxide (22-30) mmol/L BUN (9-20) mg/dL Creatinine (0.66-1.25) mg/dL Glucose (74-99) mg/dL POC Glucose (mg/dL) 179 H 156 H 175 H (75-99) mg/dL Calcium (8.4-10.2) mg/dL AST (17-59) U/L Total Protein (6.3-8.2) g/dL Albumin (3.5-5.0) g/dL 10/23/21 10/23/21 10/23/21 Range/Units 14:01 14:59 15:52 RBC (4.30-5.90) m/uL Hgb (13.0-17.5) gm/dL Hct (39.0-53.0) % MCV (80.0-100.0) fL ABG pCO2 (35-45) mmHg ABG pO2 (83-108) mmHg ABG HCO3 (21-25) mmol/L ABG Total CO2 (19-24) mmol/L Chloride (98-107) mmol/L Carbon Dioxide (22-30) mmol/L BUN (9-20) mg/dL Creatinine (0.66-1.25) mg/dL Glucose (74-99) mg/dL POC Glucose (mg/dL) 197 H 208 H 225 H (75-99) mg/dL Calcium (8.4-10.2) mg/dL AST (17-59) U/L Total Protein (6.3-8.2) g/dL Albumin (3.5-5.0) g/dL 10/23/21 10/23/21 10/23/21 Range/Units 17:00 17:54 18:56 RBC (4.30-5.90) m/uL Hgb (13.0-17.5) gm/dL Hct (39.0-53.0) % MCV (80.0-100.0) fL ABG pCO2 (35-45) mmHg ABG pO2 (83-108) mmHg ABG HCO3 (21-25) mmol/L ABG Total CO2 (19-24) mmol/L Chloride (98-107) mmol/L Carbon Dioxide (22-30) mmol/L BUN (9-20) mg/dL Creatinine (0.66-1.25) mg/dL Glucose (74-99) mg/dL POC Glucose (mg/dL) 288 H 199 H 191 H (75-99) mg/dL Calcium (8.4-10.2) mg/dL AST (17-59) U/L Total Protein (6.3-8.2) g/dL Albumin (3.5-5.0) g/dL 10/23/21 10/23/21 10/23/21 Range/Units 20:01 20:58 22:04 RBC (4.30-5.90) m/uL Hgb (13.0-17.5) gm/dL Hct (39.0-53.0) % MCV (80.0-100.0) fL ABG pCO2 (35-45) mmHg ABG pO2 (83-108) mmHg ABG HCO3 (21-25) mmol/L ABG Total CO2 (19-24) mmol/L Chloride (98-107) mmol/L Carbon Dioxide (22-30) mmol/L BUN (9-20) mg/dL Creatinine (0.66-1.25) mg/dL Glucose (74-99) mg/dL POC Glucose (mg/dL) 179 H 178 H 142 H (75-99) mg/dL Calcium (8.4-10.2) mg/dL AST (17-59) U/L Total Protein (6.3-8.2) g/dL Albumin (3.5-5.0) g/dL 10/23/21 10/23/21 10/24/21 Range/Units 23:12 23:57 00:21 RBC (4.30-5.90) m/uL Hgb (13.0-17.5) gm/dL Hct (39.0-53.0) % MCV (80.0-100.0) fL ABG pCO2 (35-45) mmHg ABG pO2 (83-108) mmHg ABG HCO3 (21-25) mmol/L ABG Total CO2 (19-24) mmol/L Chloride (98-107) mmol/L Carbon Dioxide (22-30) mmol/L BUN (9-20) mg/dL Creatinine (0.66-1.25) mg/dL Glucose (74-99) mg/dL POC Glucose (mg/dL) 142 H 130 H 133 H (75-99) mg/dL Calcium (8.4-10.2) mg/dL AST (17-59) U/L Total Protein (6.3-8.2) g/dL Albumin (3.5-5.0) g/dL 10/24/21 10/24/21 10/24/21 Range/Units 01:19 02:15 03:15 RBC (4.30-5.90) m/uL Hgb (13.0-17.5) gm/dL Hct (39.0-53.0) % MCV (80.0-100.0) fL ABG pCO2 (35-45) mmHg ABG pO2 (83-108) mmHg ABG HCO3 (21-25) mmol/L ABG Total CO2 (19-24) mmol/L Chloride (98-107) mmol/L Carbon Dioxide (22-30) mmol/L BUN (9-20) mg/dL Creatinine (0.66-1.25) mg/dL Glucose (74-99) mg/dL POC Glucose (mg/dL) 138 H 134 H 166 H (75-99) mg/dL Calcium (8.4-10.2) mg/dL AST (17-59) U/L Total Protein (6.3-8.2) g/dL Albumin (3.5-5.0) g/dL 10/24/21 10/24/21 10/24/21 Range/Units 04:03 05:54 07:02 RBC (4.30-5.90) m/uL Hgb (13.0-17.5) gm/dL Hct (39.0-53.0) % MCV (80.0-100.0) fL ABG pCO2 (35-45) mmHg ABG pO2 (83-108) mmHg ABG HCO3 (21-25) mmol/L ABG Total CO2 (19-24) mmol/L Chloride (98-107) mmol/L Carbon Dioxide (22-30) mmol/L BUN (9-20) mg/dL Creatinine (0.66-1.25) mg/dL Glucose (74-99) mg/dL POC Glucose (mg/dL) 165 H 129 H 133 H (75-99) mg/dL Calcium (8.4-10.2) mg/dL AST (17-59) U/L Total Protein (6.3-8.2) g/dL Albumin (3.5-5.0) g/dL 10/24/21 10/24/21 10/24/21 Range/Units 07:54 07:57 08:11 RBC 3.37 L (4.30-5.90) m/uL Hgb 11.0 L (13.0-17.5) gm/dL Hct 34.3 L (39.0-53.0) % MCV 101.9 H (80.0-100.0) fL ABG pCO2 (35-45) mmHg ABG pO2 (83-108) mmHg ABG HCO3 (21-25) mmol/L ABG Total CO2 (19-24) mmol/L Chloride 109 H (98-107) mmol/L Carbon Dioxide 18 L (22-30) mmol/L BUN 101 H* (9-20) mg/dL Creatinine 2.85 H (0.66-1.25) mg/dL Glucose 181 H (74-99) mg/dL POC Glucose (mg/dL) 187 H (75-99) mg/dL Calcium 8.0 L (8.4-10.2) mg/dL AST 112 H (17-59) U/L Total Protein 5.6 L (6.3-8.2) g/dL Albumin 2.5 L (3.5-5.0) g/dL 10/24/21 Range/Units 09:26 RBC (4.30-5.90) m/uL Hgb (13.0-17.5) gm/dL Hct (39.0-53.0) % MCV (80.0-100.0) fL ABG pCO2 28 L (35-45) mmHg ABG pO2 74 L (83-108) mmHg ABG HCO3 17 L (21-25) mmol/L ABG Total CO2 18 L (19-24) mmol/L Chloride (98-107) mmol/L Carbon Dioxide (22-30) mmol/L BUN (9-20) mg/dL Creatinine (0.66-1.25) mg/dL Glucose (74-99) mg/dL POC Glucose (mg/dL) (75-99) mg/dL Calcium (8.4-10.2) mg/dL AST (17-59) U/L Total Protein (6.3-8.2) g/dL Albumin (3.5-5.0) g/dL Microbiology - Last 24 Hours (Table) 10/23/21 05:50 Blood Culture - Preliminary Blood No Growth after 24 hours 10/21/21 10:00 Urine Culture - Final Urine,Voided Staphylococcus aureus 10/22/21 06:01 Blood Culture Gram Stain - Preliminary Blood Blood Culture - Preliminary Presumptive Staph aureus 10/21/21 10:37 Blood Culture Gram Stain - Preliminary Blood Blood Culture - Preliminary Staphylococcus aureus Assessment and Plan Plan: Assessment: 1. Acute kidney injury secondary to ATN secondary to septic shock. Creatinine was 2.59 on admission and peaked at 3.56 this admission - 2.85 today. Nonoliguric. No hydronephrosis noted on kidney ultrasound. 2. Septic shock secondary to staph aureus UTI and bacteremia on antibiotics. Infectious disease following. Off Levophed. 3. Chronic kidney disease stage IIIA with baseline creatinine in the range of 1.5-1.7 secondary to diabetic kidney disease. 4. Metabolic acidosis secondary to acute kidney injury and IV fluids. Status post bicarb drip. 5. Hypovolemic hyponatremia improved with IV hydration. Also component of hyperglycemia. Improved. 6. Hypokalemia from poor intake. 7. Diabetes mellitus. Serum acetone positive. Currently on insulin drip. 8. Volume overload. Plan: Hep-Lock IV fluids. Lasix 40 mg IV once today. Avoid nephrotoxins. Continue to monitor renal function and urine output. Preserved ejection fraction with moderate LVH noted on echocardiogram. Phosphorus 3.5 today. 2 A of sodium bicarbonate IV push today. Replace potassium.
[2021-10-24 09:43] LABS: Lymphocytes # (M) 0.71 k/uL (1.0-4.8); Monocytes # (M) 0.71 k/uL (0-1.0); Neutrophils # (M) 8.67 k/uL (1.3-7.7); Neutrophils % (M) 85 %; Nucleated Red Blood Cells 0 /100 WBC (0-0); Total Cells Counted 100
[2021-10-24] MEDS ORDERED: POTASSIUM CHLORIDE 20 MEQ in WATER FOR INJECTION 1 100ML.BAG IVPB SCH (09:45)
[2021-10-24 10:05] LABS: Glucose,Whole Blood 194 mg/dL (75-99)
[2021-10-24] MEDS: INSULIN DETEMIR (LEVEMIR) 100 UNIT/ML SYR SQ SCH ×2 (10:16→20:25)
[2021-10-24] MEDS: INSULIN ASPART (NovoLOG) 100 UNIT/ML VIAL SQ SCH ×6 (10:16→20:21)
[2021-10-24] MEDS ORDERED: SODIUM BICARB 8.4% 50 ML SYR (1 MEQ/ML) ONE (10:17)
[2021-10-24] MEDS: POTASSIUM CHLORIDE 10 MEQ in WATER FOR INJECTION 1 100ML.BAG IVPB SCH ×4 (10:18→14:26)
--- NOTE | 2021-10-24 11:06 | P.PN ---
Subjective Progress Note Date: 10/24/21 HISTORY OF PRESENT ILLNESS This is a 55-year-old male patient of Dr. Fischer with past medical history of diabetes mellitus on insulin pump, hypertension, seizure disorder, gastroesopha geal reflux disease, generalized anxiety disorder, tobacco use and dependence, alcohol abuse suspected. Patient is able to state that he has not felt well for 3 days and insulin pump is not in place. He is a poor historian and unable to give accurate information. Patient's is on her way to the hospital. He was brought in to the emergency center by EMS for generalized weakness. Patient was too weak apparently to get off the floor after a fall. Patient was found to be febrile at 101.6, heart rate 134, blood pressure 120/98, respiratory rate 36, pulse ox 99% on 2 L. WBC 9.8, hemoglobin 11.7, platelet count 140. Sodium 124, potassium 3.7, chloride 92, CO2 19, BUN 71 and creatinine 2.59. Blood sugar 331 and subsequent blood glucose 484 and 547. Lactic acid 1.8. Calcium 8.3. Magnesium 1.6. Troponin is 0.129. Albumin 3.4. AST 282, ALT 77, alkaline phosphatase 85. Influenza a not detected, influenza B not detected, RSV not detected, SARS Covid to not detected. Chest x-ray revealed no acute cardiopulmonary process. CAT scan of the brain revealed no acute process. Encephalomalacia of the right temporal lobe similar to 2018. Patient is seen today in the emergency center waiting for a bed, we will change bed assignment to intensive care unit, and additional lab work ordered including alcohol level, acetone, blood culture, consults added for cardiology for tachycardia, elevated troponins, project hire for ICU management, neurology for metabolic encephalopathy and infectious disease. Patient started on empiric antibiotics with Zosyn, patient started on CIWA protocol. He is currently on bicarbonate drip with 1 amp 100 mL per hour. 10/22: Patient is in bed in moderate distress in the ICU, at the bedside. Per the the patient drinks approximately applied to the fifth daily. Patient is tachycardic/ tachypenic, urinary output 60 ML's per hour and indwelling catheter. Blood culture is positive for staph aureus. Blood gases on 32% show pO2 of 54, pCO2 34, and a pH is 7.42. He is currently high flow nasal cannula. At 10 L. He is also getting saline at 75 mL an hour, insulin at 9 units an hour, and norepinephrine at 2 mcg/m. His current antibiotics include vancomycin, daptomycin, and Zosyn. Currently white count 9.1, hemoglobin 10.1, hematocrit 31.1, and platelet count 99,000. Sodium 131, potassium 2.9, chl orides 99, CO2 22, BUN 73, and creatinine 2.89. Troponin levels were 0.129, and 0.162. Albumin is 2.4. 10/23: Patient is sedated at this time. Patient febrile with a temperature 100.9, heart rate 112, respirations 29, blood pressure 121/97, 98% on high flow nasal cannula 10 L. To Cecilia 11.5, hemoglobin 11.4, sodium 135, potassium 4.2, BUN 86, creatinine 3.56. Urine output 50 ML's per hour per indwelling catheter. He still getting saline at 75 ML's an hour, continue with IV antibiotics. Insulin drip until tomorrow. 10/24: Patient remains on low-dose sedation with Precedex and also receiving Ativan as needed. He is on insulin drip and on IV fluids at 75 mL/h. Cardiology has signed off his case. We will plan to transition off insulin drip to Levemir 25 units twice daily and 10 units of NovoLog every 6 hours along with NovoLog scale. WBC is 10.2, hemoglobin 11, platelet count 193. Sodium 142, potassium 3.6, chloride 109, CO2 18, BUN 101 and creatinine 2.85. Blood sugars are running between 130s - 187. ALT 112. Patient is status post IV Lasix 40 mg times once today potassium replaced. Echocardiogram reveals EF of 55-60% with moderate left ventricular hypertrophy, mild aortic stenosis with mean gradient of 13 mmHg, mild aortic regurgitation, mild tricuspid regurgitation, mild mitral regurgitation. REVIEW OF SYSTEMS Unable to obtain due to patient's mental status. PHYSICAL EXAMINATION Gen: This is a morbidly obese 55-year-old male. Found in ICU bed in no acute distress. HEENT: Head is atraumatic, normocephalic. Pupils equal, round. Sclerae is anicteric. Patient does not smell of acetone/alcohol. NECK: Supple. No JVD. No lymphadenopathy. No thyromegaly. LUNGS: Diminished with a few scattered rhonchi. No intercostal retractions. HEART: Regular rate and rhythm. No murmur. ABDOMEN: Soft. Bowel sounds are present. No masses. No tenderness. EXTREMITIES: No pedal edema. No calf tenderness. SKIN: No skin lesions noted, no ulcers, no wounds, no areas of erythema. NEUROLOGICAL: Patient is not alert and unable to provide information, unable to follow clear directions. ASSESSMENT AND PLAN 1. Sepsis and MSSA bacteremia. Consult with Dr. Ashford appreciated. Patient is currently on Kefzol 2 g IV piggyback every 12 hours 2. Metabolic encephalopathy of unclear etiology. Consult with neurology appreciated. 3. Delirium tremors. Patient started on CIWA protocol with Ativan, thiamine, obtain alcohol level. 4. DKA in patient with diabetes mellitus type 1 insulin requiring. Patient is not on insulin pump. Transition to insulin drip to Levemir 25 units twice daily, NovoLog 10 units every 6 hours and NovoLog scale . 5. Acute kidney injury with chronic kidney disease stage III. Consult with nephrology appreciated. Patient on bicarb drip, check urinalysis, renal ultrasound and repeat labs, hold on FAITH inhibitor. 6. Anion gap metabolic acidosis secondary to acute kidney injury and DKA. Status post sodium bicarb. 7. Tachycardia most likely secondary to sepsis. Cardiology consult. 8. Elevated troponins, acute coronary syndrome ruled out. Cardiology consult appreciated and have signed off. 9. Thrombocytopenia most likely secondary to sepsis. Continue to monitor. 10. Hyponatremia. Nephrology following. 11. Hypertension. Hold lisinopril 20 mg daily. 12. Dementia. Continue Aricept 10 mg daily. 13. Hyperlipidemia. Continue Lipitor 40 mg daily. 14. Gastroesophageal reflux disease and GI prophylaxis. Protonix 40 mg IV daily. 15. History of acute respiratory failure requiring intubation secondary to polysubstance abuse which included narcotics and alcohol. 16. History of liver cirrhosis secondary to alcohol abuse. 17. History of Seizure disorder. Patient does not appear to be on Keppra anymore. 18. Generalized anxiety disorder and recurrent depression. Prognosis guarded. DISCHARGE PLAN To be determined. Impression and plan of care have been directed as dictated by the signing physician. Elizabeth Sipcer nurse practitioner acting as scribe for signing physician. Objective - Vital Signs Vital signs: Vital Signs Temp 98.7 F 10/24/21 04:00 Pulse 98 10/24/21 08:48 Resp 34 H 10/24/21 07:00 BP 109/66 10/24/21 07:00 Pulse Ox 98 10/24/21 08:33 FiO2 Intake & Output 10/23/21 10/24/21 10/24/21 18:59 06:59 18:59 Intake Total 5838.330 6369.383 75 Output Total 1065 950 50 Balance 72.085 103.383 25 Weight 116.3 kg Intake: IV 950 900 75 Sodium Chloride 0.9% 1, 900 900 75 000 ml @ 75 mls/hr IV . [id number] [facility] Rx#:[id number] ceFAZolin 2 gm In Sodium 50 Chloride 0.9% 50 ml @ 100 mls/hr IVPB Q12HR [facility] Rx #:[id number] Intake, IV Titration 187.085 153.383 0 Amount Dexmedetomidine/0.9% NaCl 125.693 104.482 (Pmx) 400 mcg In Empty Bag 1 bag @ 0.2 MCG/KG/HR 5.555 mls/hr IV .Q18H1M [facility] Rx#:[id number] Insulin Regular 100 unit 61.392 48.901 0 In Sodium Chloride 0.9% 100 ml @ Per Protocol IV .Q0M [facility]GAN Rx#:[id number] Output: Urine 1065 950 50 Other: Voiding Method Indwelling Catheter Indwelling Catheter - Labs CBC & Chem 7: 10/24/21 07:57 10/24/21 07:54 Labs: Abnormal Lab Results - Last 24 Hours (Table) 10/23/21 10/23/21 10/23/21 Range/Units 09:06 11:01 11:55 RBC (4.30-5.90) m/uL Hgb (13.0-17.5) gm/dL Hct (39.0-53.0) % MCV (80.0-100.0) fL POC Glucose (mg/dL) 178 H 179 H 156 H (75-99) mg/dL 10/23/21 10/23/21 10/23/21 Range/Units 12:58 14:01 14:59 RBC (4.30-5.90) m/uL Hgb (13.0-17.5) gm/dL Hct (39.0-53.0) % MCV (80.0-100.0) fL POC Glucose (mg/dL) 175 H 197 H 208 H (75-99) mg/dL 10/23/21 10/23/21 10/23/21 Range/Units 15:52 17:00 17:54 RBC (4.30-5.90) m/uL Hgb (13.0-17.5) gm/dL Hct (39.0-53.0) % MCV (80.0-100.0) fL POC Glucose (mg/dL) 225 H 288 H 199 H (75-99) mg/dL 10/23/21 10/23/21 10/23/21 Range/Units 18:56 20:01 20:58 RBC (4.30-5.90) m/uL Hgb (13.0-17.5) gm/dL Hct (39.0-53.0) % MCV (80.0-100.0) fL POC Glucose (mg/dL) 191 H 179 H 178 H (75-99) mg/dL 10/23/21 10/23/21 10/23/21 Range/Units 22:04 23:12 23:57 RBC (4.30-5.90) m/uL Hgb (13.0-17.5) gm/dL Hct (39.0-53.0) % MCV (80.0-100.0) fL POC Glucose (mg/dL) 142 H 142 H 130 H (75-99) mg/dL 10/24/21 10/24/21 10/24/21 Range/Units 00:21 01:19 02:15 RBC (4.30-5.90) m/uL Hgb (13.0-17.5) gm/dL Hct (39.0-53.0) % MCV (80.0-100.0) fL POC Glucose (mg/dL) 133 H 138 H 134 H (75-99) mg/dL 10/24/21 10/24/21 10/24/21 Range/Units 03:15 04:03 05:54 RBC (4.30-5.90) m/uL Hgb (13.0-17.5) gm/dL Hct (39.0-53.0) % MCV (80.0-100.0) fL POC Glucose (mg/dL) 166 H 165 H 129 H (75-99) mg/dL 10/24/21 10/24/21 10/24/21 Range/Units 07:02 07:57 08:11 RBC 3.37 L (4.30-5.90) m/uL Hgb 11.0 L (13.0-17.5) gm/dL Hct 34.3 L (39.0-53.0) % MCV 101.9 H (80.0-100.0) fL POC Glucose (mg/dL) 133 H 187 H (75-99) mg/dL Microbiology - Last 24 Hours (Table) 10/23/21 05:50 Blood Culture - Preliminary Blood No Growth after 24 hours 10/21/21 10:00 Urine Culture - Final Urine,Voided Staphylococcus aureus 10/22/21 06:01 Blood Culture Gram Stain - Preliminary Blood Blood Culture - Preliminary Presumptive Staph aureus 10/21/21 10:37 Blood Culture Gram Stain - Preliminary Blood Blood Culture - Preliminary Staphylococcus aureus
[2021-10-24 11:33] LABS: Glucose,Whole Blood 163 mg/dL (75-99)
[2021-10-24] MEDS ORDERED: POTASSIUM CHLORIDE 20 MEQ in WATER FOR INJECTION 1 100ML.BAG IVPB ONE (12:00)
[2021-10-24 14:33] LABS: Glucose,Whole Blood 154 mg/dL (75-99)
[2021-10-24 14:56] LABS: Hepatitis B Surface AB- Quant 3.5 mIU/mL; Hepatitis B Surface Antibody Nonreactive (Nonreactive)
--- NOTE | 2021-10-24 14:57 | P.PN ---
Subjective Progress Note Date: 10/24/21 10/24/2021, MCV patient for a follow-up in the patient is altered mentally and the patient is still going through delirium tremens. The patient is currently on Precedex running at 0.2 mcg/kg per minute. Note that the patient is a 55-year-old female patient with known history of diabetes mellitus type 1, hypertension, chronic kidney disease, COPD, dementia, alcohol abuse and crack cocaine abuse. Patient currently is calm and comfortable. Arousable. He is not following commands consistently. At times, gets restless and agitated and the Precedex dose being titrated by the nursing staff here in the intensive care unit. The patient remains on IV fluids with normal saline at the rate of 75 mL an hour. Urine output is adequate. The patient is currently not requiring any pressors. Overall fluid balance is +2.8 L over the past 24 hours and the patient remains on IV Solu regarding MSSA septicemia. Note that the patient's urine culture and blood culture both indicated MSSA. The patient is currently on 4 L about 2 by nasal cannula. The white cell count is at 10.2 with a hemoglobin of 11 and a platelet count of 193. At the same time, the patient has a sodium level of 142, serum bicarbonate is 18 with a BUN of 101 and a creatinine of 2.85 which is improved compared to yesterday. The total protein is at 5.6 with an albumin level of 2.5. The patient otherwise is resting comfortably in bed. No other significant events over the past 24 hours. Nephrology saw the patient and patient was switched from normal saline to a bicarb infusion to counteract his metabolic acidosis. Meanwhile, the patient on Levemir insulin 25 units twice a day and a NovoLog sliding scale coverage. He remains on Protonix. No other significant issues overnight. Objective - Vital Signs Vital signs: Vital Signs Temp 98.7 F 10/24/21 04:00 Pulse 98 10/24/21 08:48 Resp 34 H 10/24/21 07:00 BP 109/66 10/24/21 07:00 Pulse Ox 98 10/24/21 08:33 FiO2 Intake & Output 10/23/21 10/24/21 10/24/21 18:59 06:59 18:59 Intake Total 1587.081 0701.383 75 Output Total 1065 950 50 Balance 72.085 103.383 25 Weight 116.3 kg Intake: IV 950 900 75 Sodium Chloride 0.9% 1, 900 900 75 000 ml @ 75 mls/hr IV . [id number] [facility] Rx#:[id number] ceFAZolin 2 gm In Sodium 50 Chloride 0.9% 50 ml @ 100 mls/hr IVPB Q12HR [facility] Rx #:[id number] Intake, IV Titration 187.085 153.383 0 Amount Dexmedetomidine/0.9% NaCl 125.693 104.482 (Pmx) 400 mcg In Empty Bag 1 bag @ 0.2 MCG/KG/HR 5.555 mls/hr IV .Q18H1M [facility] Rx#:[id number] Insulin Regular 100 unit 61.392 48.901 0 In Sodium Chloride 0.9% 100 ml @ Per Protocol IV .Q0M [facility] Rx#:[id number] Output: Urine 1065 950 50 Other: Voiding Method Indwelling Catheter Indwelling Catheter - Exam Sedated, currently on dexmedetomidine. Much less agitated. Probable active withdrawal symptoms. The patient is currently on Precedex. The patient on 4 L of oxygen by nasal cannula. Head exam was generally normal. There was no scleral icterus or corneal arcus. Mucous membranes were moist. HEENT examination is grossly unremarkable. Neck supple. Full range of motion. No adenopathy thyromegaly or neck vein distention. Cardiovascular examination reveals regular rhythm rate. S1-S2 normal. No S3 or S4. No discernible murmur noted. Heart rate 92 bpm. Lungs reveal scattered bilateral rhonchi. Breath sounds equal. No wheezes. For L nasal O2 saturation is 97 %. Abdomen is obese. No bowel sounds. No tenderness. No masses. Extremities are intact. No cyanosis clubbing or edema. Skin is without rash or lesion. Neurologic examination cannot be properly assessed. He does move all 4 extremities. Less agitation. Unable to provide any additional history. - Labs CBC & Chem 7: 10/24/21 07:57 10/24/21 07:54 Labs: Abnormal Lab Results - Last 24 Hours (Table) 10/23/21 10/23/21 10/23/21 Range/Units 09:06 11:01 11:55 RBC (4.30-5.90) m/uL Hgb (13.0-17.5) gm/dL Hct (39.0-53.0) % MCV (80.0-100.0) fL POC Glucose (mg/dL) 178 H 179 H 156 H (75-99) mg/dL 10/23/21 10/23/21 10/23/21 Range/Units 12:58 14:01 14:59 RBC (4.30-5.90) m/uL Hgb (13.0-17.5) gm/dL Hct (39.0-53.0) % MCV (80.0-100.0) fL POC Glucose (mg/dL) 175 H 197 H 208 H (75-99) mg/dL 10/23/21 10/23/21 10/23/21 Range/Units 15:52 17:00 17:54 RBC (4.30-5.90) m/uL Hgb (13.0-17.5) gm/dL Hct (39.0-53.0) % MCV (80.0-100.0) fL POC Glucose (mg/dL) 225 H 288 H 199 H (75-99) mg/dL 10/23/21 10/23/21 10/23/21 Range/Units 18:56 20:01 20:58 RBC (4.30-5.90) m/uL Hgb (13.0-17.5) gm/dL Hct (39.0-53.0) % MCV (80.0-100.0) fL POC Glucose (mg/dL) 191 H 179 H 178 H (75-99) mg/dL 10/23/21 10/23/21 10/23/21 Range/Units 22:04 23:12 23:57 RBC (4.30-5.90) m/uL Hgb (13.0-17.5) gm/dL Hct (39.0-53.0) % MCV (80.0-100.0) fL POC Glucose (mg/dL) 142 H 142 H 130 H (75-99) mg/dL 10/24/21 10/24/21 10/24/21 Range/Units 00:21 01:19 02:15 RBC (4.30-5.90) m/uL Hgb (13.0-17.5) gm/dL Hct (39.0-53.0) % MCV (80.0-100.0) fL POC Glucose (mg/dL) 133 H 138 H 134 H (75-99) mg/dL 10/24/21 10/24/21 10/24/21 Range/Units 03:15 04:03 05:54 RBC (4.30-5.90) m/uL Hgb (13.0-17.5) gm/dL Hct (39.0-53.0) % MCV (80.0-100.0) fL POC Glucose (mg/dL) 166 H 165 H 129 H (75-99) mg/dL 10/24/21 10/24/21 10/24/21 Range/Units 07:02 07:57 08:11 RBC 3.37 L (4.30-5.90) m/uL Hgb 11.0 L (13.0-17.5) gm/dL Hct 34.3 L (39.0-53.0) % MCV 101.9 H (80.0-100.0) fL POC Glucose (mg/dL) 133 H 187 H (75-99) mg/dL Microbiology - Last 24 Hours (Table) 10/23/21 05:50 Blood Culture - Preliminary Blood No Growth after 24 hours 10/21/21 10:00 Urine Culture - Final Urine,Voided Staphylococcus aureus 10/22/21 06:01 Blood Culture Gram Stain - Preliminary Blood Blood Culture - Preliminary Presumptive Staph aureus 10/21/21 10:37 Blood Culture Gram Stain - Preliminary Blood Blood Culture - Preliminary Staphylococcus aureus Assessment and Plan Plan: Mental status changes, confusion, and agitation, with elevated blood sugars, and possible underlying sepsis/urinary tract infection. Blood cultures and urine cultures, positive for presumptive staph aureus. Currently on Precedex 0.2. The patient is currently on IV. Kefzol Septic shock, MSSA, off vasopressors and the patient is currently maintaining his own blood pressure. The patient was found to have MSSA in the urine and in the blood. Diabetic ketoacidosis , the patient is a component of DKA at time of admission. Currently the patient was on insulin drip and the patient was switched to long- acting insulin with Levemir 25 units twice a day and a sliding scale coverage. Delirium tremens, Precedex IRIS on CKD, IVF at 75 cc/hr and creatininenis 2.85, creatinine improved compared to yesterday acute hypoxic respiratory failure, 02 4 liters/min History of type 1 diabetes mellitus, currently on Levemir insulin Anion gap metabolic acidosis, likely related to kidney injury, and/or DKA. Elevated troponin level. History of chronic kidney disease. History of COPD from ongoing and heavy tobacco use. History of dementia. History of chronic alcohol abuse, drinking 1/5 of vodka daily. Daily crack cocaine use. Dilutional hyponatremia, recovered Plan Keep the patient ICU Continue using Precedex and titrate the dose to comfort and agitation IV fluids to be switched her bicarb infusion to counteract the bicarb deficits Monitor the blood sugars Keep the patient be off for now Continued IV cefazolin Monitor renal function and the creatinine is improved compared to yesterday Repeat chest x-ray in the morning Switch this patient to long-acting insulin Levemir 25 units twice a day We'll continue to follow make further recommendations based on his progress.
[2021-10-24 14:59] LABS: Hepatitis B Surface Antigen Nonreactive (Nonreactive)
--- NOTE | 2021-10-24 16:13 | XR ---
EXAMINATION TYPE: XR chest 1V portable DATE OF EXAM: 10/24/2021 COMPARISON: 10/23/2021 HISTORY: Central line placement TECHNIQUE: Single frontal view of the chest is obtained. FINDINGS: Of bilateral infiltrate and pleural effusion with diffuse interstitial pattern noted. Left -sided central line seen with tip overlying the SVC and no sizable pneumothorax. Heart size stable. U nderlying COPD suggested. IMPRESSION: 1. Left-sided central line seen with the tip overlying the SVC and no sizable pneumothorax. 2. Bilateral infiltrate and pleural effusion correlate for mild CHF otherwise consider pneumonia.
--- NOTE | 2021-10-24 16:18 | P.PCN ---
Date of Procedure: 10/24/21 Preoperative Diagnosis: Delirium tremens, altered mentation Postoperative Diagnosis: Same Procedure(s) Performed: Insertion of a triple-lumen catheter and insertion of an arterial line catheter Anesthesia: local Surgeon: Kisha Saucedo Estimated Blood Loss (ml): 0 Condition: critical Disposition: ICU Operative Findings: Insertion of an arterial line Indication: Hemodynamic monitoring. A time-out was completed verifying correct patient, procedure, site, positioning, and implant(s) or special equipment if applicable. Allens test was performed to ensure adequate perfusion. The patients left wrist was prepped and draped in sterile fashion. 1% Lidocaine was used to anesthetize the area. An 18G Arrow arterial line was introduced into the radial artery. The catheter was threaded over the guide wire and the needle was removed with appropriate pulsatile blood return. Blood loss was minimal. The catheter was then sutured in place to the skin and a sterile dressing applied. Perfusion to the extremity distal to the point of catheter insertion was checked and found to be adequate. The patient tolerated the procedure well and there were no complications. Insertion of an arterial line Indication: Hemodynamic monitoring/Intravenous access. A time-out was completed verifying correct patient, procedure, site, positioning, and implant(s) or special equipment if applicable. The patient was placed in a dependent position appropriate for central line placement based on the vein to be cannulated. The patients left shoulder was prepped and draped in sterile fashion. 1% Lidocaine was used to anesthetize the surrounding skin area. A triple lumen 9F Cordis catheter was introduced into the left subclavian vein using Seldinger technique. The catheter was threaded smoothly over the guide wire and appropriate blood return was obtained. Each lumen of the catheter was evacuated of air and flushed with sterile saline. The catheter was then sutured in place to the skin and a sterile dressing applied. Perfusion to the extremity distal to the point of catheter insertion was checked and found to be adequate. The patient tolerated the procedure well and there were no complications.
[2021-10-24 16:46] LABS: Glucose,Whole Blood 134 mg/dL (75-99)
[2021-10-24] MEDS: POTASSIUM CHLORIDE 20 MEQ in WATER FOR INJECTION 1 100ML.BAG IVPB SCH ×2 (19:08→21:20)
[2021-10-24 20:10] LABS: Glucose,Whole Blood 103 mg/dL (75-99)
[2021-10-24 22:09] LABS: Glucose,Whole Blood 116 mg/dL (75-99)
[2021-10-25 00:07] LABS: Glucose,Whole Blood 113 mg/dL (75-99)
[2021-10-25] MEDS: LORazepam 2 MG/ML INJ IV PRN (00:13)
[2021-10-25] MEDS ORDERED: DILTIAZEM DRIP BOLUS FROM BAG 1 MG SOLN IV ONE (00:25)
[2021-10-25] MEDS ORDERED: propofoL 100 ML IV ONE (00:32)
[2021-10-25] MEDS: DILTIAZEM 125 MG in SODIUM CHLORIDE 0.9% 100 ML IV SCH ×2 (00:36→19:09)
[2021-10-25] MEDS ORDERED: ROCURONIUM 10 MG/ML (5 ML VIAL) IV ONE (00:50)
[2021-10-25] MEDS ORDERED: PROPOFOL 10 MG/ML 20 ML VIAL IV ONE (00:50)
[2021-10-25] MEDS ORDERED: SUCCINYLCHOLINE CHLORIDE 100 MG/5 ML SYR IV ONE (00:50)
[2021-10-25 01:23] LABS: ABG Base Excess -1.6 mmol/L; ABG HCO3 24 mmol/L (21-25); ABG Oxygen Saturation 99.6 % (94-97); ABG PCO2 43 mmHg (35-45); ABG PH 7.35 (7.35-7.45); ABG PO2 155 mmHg (83-108); ABG TCO2 25 mmol/L (19-24)
[2021-10-25 01:26] LABS: Allen Test Performed? No
--- NOTE | 2021-10-25 02:10 | XR ---
EXAMINATION TYPE: XR chest 1V portable DATE OF EXAM: 10/25/2021 COMPARISON: Yesterday HISTORY: Respiratory failure TECHNIQUE: FINDINGS: There is endotracheal tube 4 cm from the pamela. There is left subclavian catheter with tip in the superior vena cava. There is mild pulmonary vascular congestion. There is slight blunting of the costophrenic angles. There is nasogastric tube in the stomach. IMPRESSION: Pulmonary vascular congestion and small pleural effusions not significantly different reji n yesterday. Tubing in good position.
[2021-10-25 03:18] LABS: Glucose,Whole Blood 90 mg/dL (75-99)
[2021-10-25] MEDS: INSULIN ASPART (NovoLOG) 100 UNIT/ML VIAL SQ SCH ×5 (03:23→19:09)
[2021-10-25 04:45] LABS: ABG Base Excess 0.2 mmol/L; ABG HCO3 25 mmol/L (21-25); ABG PCO2 37 mmHg (35-45); ABG PH 7.43 (7.35-7.45); ABG PO2 116 mmHg (83-108); ABG TCO2 26 mmol/L (19-24)
[2021-10-25 04:46] LABS: Allen Test Performed? No
[2021-10-25 05:07] LABS: HCT 29.6 % (39.0-53.0); HGB 9.7 gm/dL (13.0-17.5); MCH 33.1 pg (25.0-35.0); MCHC 32.6 g/dL (31.0-37.0); MCV 101.6 fL (80.0-100.0); Macrocytosis Slight; Mean Platelet Volume 9.4; Platelet Count 232 k/uL (150-450); RBC 2.91 m/uL (4.30-5.90); RDW 13.9 % (11.5-15.5); WBC 13.1 k/uL (3.8-10.6)
[2021-10-25 05:33] LABS: Calcium 8.2 mg/dL (8.4-10.2); Potassium 3.8 mmol/L (3.5-5.1)
[2021-10-25] MEDS: NOREPINEPHRINE 4 MG in SODIUM CHLORIDE 0.9% 250 ML IV SCH ×2 (06:36→15:43)
[2021-10-25] MEDS ORDERED: POTASSIUM BICARBONATE/CIT AC 20 MEQ TABLET.EFF PO ONE (08:00)
--- NOTE | 2021-10-25 08:01 | P.PN ---
Subjective Progress Note Date: 10/25/21 10/24/2021, MCV patient for a follow-up in the patient is altered mentally and the patient is still going through delirium tremens. The patient is currently on Precedex running at 0.2 mcg/kg per minute. Note that the patient is a 55-year-old female patient with known history of diabetes mellitus type 1, hypertension, chronic kidney disease, COPD, dementia, alcohol abuse and crack cocaine abuse. Patient currently is calm and comfortable. Arousable. He is not following commands consistently. At times, gets restless and agitated and the Precedex dose being titrated by the nursing staff here in the intensive care unit. The patient remains on IV fluids with normal saline at the rate of 75 mL an hour. Urine output is adequate. The patient is currently not requiring any pressors. Overall fluid balance is +2.8 L over the past 24 hours and the patient remains on IV Solu regarding MSSA septicemia. Note that the patient's urine culture and blood culture both indicated MSSA. The patient is currently on 4 L about 2 by nasal cannula. The white cell count is at 10.2 with a hemoglobin of 11 and a platelet count of 193. At the same time, the patient has a sodium level of 142, serum bicarbonate is 18 with a BUN of 101 and a creatinine of 2.85 which is improved compared to yesterday. The total protein is at 5.6 with an albumin level of 2.5. The patient otherwise is resting comfortably in bed. No other significant events over the past 24 hours. Nephrology saw the patient and patient was switched from normal saline to a bicarb infusion to counteract his metabolic acidosis. Meanwhile, the patient on Levemir insulin 25 units twice a day and a NovoLog sliding scale coverage. He remains on Protonix. No other significant issues overnight. 10/25/2021, I'm seeing the patient for a follow-up. Events from yesterday evening were noted. The patient went into a tachycardic rhythm/sinus tachycardia versus SVT and the patient was quite lethargic, and unresponsive. He was breathing was also labored. That point, decided to proceed with intubation and the patient was intubated by the DRAFTING DETAILER overnight and he was placed on a mechanical ventilator. This morning, is converted back into normal sinus rhythm. His not receiving any effusions REGARDING his heart rate. He did receive Cardizem yesterday which was discontinued after the patient's potassium converted into normal sinus rhythm. He is currently on propofol running at 40 mg/kg per minute. He is calm and comfortable. He is quite cigarettes a mechanical ventilator. He is an assist-control mode of mechanical ventilation at the rate of 26 with an FiO2 of 50% with a PEEP of 5 and tidal volume of 400. Chest x-ray postintubation shows increased pulmonary vessel markings and pulmonary vessel congestion and edema. The blood gases from today shows a pH of 7.43 with a pCO2 of 37 and pO2 116 and this was done and FiO2 of 70%. Peak airway pressures around 18. The patient is on IV fluids at [facility]. He did receive bicarb infusion yesterday and his acid base status is improved considerably. White cell count of 15.1 with a hemoglobin above 7 and a platelet count of 232. Sodium is at 145 with a potassium level of 3.8 150 with a bicarb of 23. BUN is 106 and creatinine is at 2.6. Note that his renal function has improved compared to yesterday knowing that his creatinine from yesterday was at 2.8. The patient is currently nothing by mouth. He is well sedated. He is afebrile. He is on Levemir insulin 25 units twice a day along with a NovoLog sliding scale coverage. He is on IV cefazolin. Repeat cultures is again positive for gram-positive cocci and the patient is still persistently bacteremic and he herminio ins on IV Kefzol 2 g every 8 hours. The baseline echocardiogram transthoracic showed no evidence of any regurgitation, high likelihood for infective endocarditis in this patient. Comorbid conditions include type 1 diabetes mellitus, chronic kidney disease, COPD, dementia, alcoholism and crack cocaine use. He also has history of hypertension. Objective - Vital Signs Vital signs: Vital Signs Temp 99.9 F H 10/25/21 04:00 Pulse 87 10/25/21 05:00 Resp 29 H 10/25/21 05:00 BP 97/53 10/25/21 05:00 Pulse Ox 98 10/25/21 05:00 FiO2 50 10/25/21 07:25 Intake & Output 10/24/21 10/25/21 10/25/21 18:59 06:59 18:59 Intake Total 929.574 281.547 Output Total 1686 1000 Balance -756.426 -718.453 Weight 114.3 kg Intake: IV 440 200 Potassium Chloride 10 meq 100 In Water For Injection 1 100ml.bag @ 100 mls/hr IVPB Q1H [facility] Rx#: [id number] Sodium Chloride 0.9% 1, 390 100 000 ml @ 75 mls/hr IV . [id number] [facility] Rx#:[id number] ceFAZolin 2 gm In Sodium 50 Chloride 0.9% 50 ml @ 100 mls/hr IVPB Q12HR [facility] Rx #:[id number] Intake, IV Titration 489.574 81.547 Amount Dexmedetomidine/0.9% NaCl 80.779 (Pmx) 400 mcg In Empty Bag 1 bag @ 0.2 MCG/KG/HR 5.555 mls/hr IV .Q18H1M [facility] Rx#:[id number] Diltiazem 125 mg In 38.167 Sodium Chloride 0.9% 100 ml @ 10 MG/HR 10 mls/hr IV .[id number] [facility] Rx#: [id number] Insulin Regular 100 unit 8.795 In Sodium Chloride 0.9% 100 ml @ Per Protocol IV .Q0M [facility] Rx#:[id number] Potassium Chloride 10 meq 400 In Water For Injection 1 100ml.bag @ 100 mls/hr IVPB Q1H [facility] Rx#: [id number] propofoL 1,000 mg In 43.380 Empty Bag 1 bag @ 5 MCG/ KG/MIN 3.489 mls/hr IV . Q24H [facility] Rx#:[id number] Output: Urine 1686 1000 Other: Voiding Method Indwelling Catheter Indwelling Catheter # Bowel Movements 1 ABP, PAP, CO, CI - Last Documented Arterial Blood Pressure 32/28 - Exam Sedated, currently on propofol, sedated and calm and comfortable, secondary to mechanical ventilator , Orotracheal and orogastric tube are both in place Head exam was generally normal. There was no scleral icterus or corneal arcus. Mucous membranes were moist. HEENT examination is grossly unremarkable. Neck supple. Full range of motion. No adenopathy thyromegaly or neck vein distention. Cardiovascular examination reveals regular rhythm rate. S1-S2 normal. No S3 or S4. No discernible murmur noted. Heart rate 92 bpm. Lungs reveal scattered bilateral rhonchi. Breath sounds equal. No wheezes. Abdomen is obese. No bowel sounds. No tenderness. No masses. Extremities are intact. No cyanosis clubbing or edema. Skin is without rash or lesion. Neurologic examination is nonfocal and the patient is withdrawing to deep painful stimulation. Currently sedated with propofol. - Labs CBC & Chem 7: 10/25/21 04:43 10/25/21 04:43 Labs: Abnormal Lab Results - Last 24 Hours (Table) 10/24/21 10/24/21 10/24/21 Range/Units 07:54 07:54 07:57 WBC (3.8-10.6) k/uL RBC 3.37 L (4.30-5.90) m/uL Hgb 11.0 L (13.0-17.5) gm/dL Hct 34.3 L (39.0-53.0) % MCV 101.9 H (80.0-100.0) fL Neutrophils # (Manual) 8.67 H (1.3-7.7) k/uL Lymphocytes # (Manual) 0.71 L (1.0-4.8) k/uL ABG pCO2 (35-45) mmHg ABG pO2 (83-108) mmHg ABG HCO3 (21-25) mmol/L ABG Total CO2 (19-24) mmol/L ABG O2 Saturation (94-97) % Potassium (3.5-5.1) mmol/L Chloride 109 H (98-107) mmol/L Carbon Dioxide 18 L (22-30) mmol/L BUN 101 H* (9-20) mg/dL Creatinine 2.85 H (0.66-1.25) mg/dL Glucose 181 H (74-99) mg/dL POC Glucose (mg/dL) (75-99) mg/dL Calcium 8.0 L (8.4-10.2) mg/dL AST 112 H (17-59) U/L Total Protein 5.6 L (6.3-8.2) g/dL Albumin 2.5 L (3.5-5.0) g/dL Procalcitonin 55.50 H (0.02-0.09) ng/mL 10/24/21 10/24/21 10/24/21 Range/Units 08:11 09:26 10:04 WBC (3.8-10.6) k/uL RBC (4.30-5.90) m/uL Hgb (13.0-17.5) gm/dL Hct (39.0-53.0) % MCV (80.0-100.0) fL Neutrophils # (Manual) (1.3-7.7) k/uL Lymphocytes # (Manual) (1.0-4.8) k/uL ABG pCO2 28 L (35-45) mmHg ABG pO2 74 L (83-108) mmHg ABG HCO3 17 L (21-25) mmol/L ABG Total CO2 18 L (19-24) mmol/L ABG O2 Saturation (94-97) % Potassium (3.5-5.1) mmol/L Chloride (98-107) mmol/L Carbon Dioxide (22-30) mmol/L BUN (9-20) mg/dL Creatinine (0.66-1.25) mg/dL Glucose (74-99) mg/dL POC Glucose (mg/dL) 187 H 194 H (75-99) mg/dL Calcium (8.4-10.2) mg/dL AST (17-59) U/L Total Protein (6.3-8.2) g/dL Albumin (3.5-5.0) g/dL Procalcitonin (0.02-0.09) ng/mL 10/24/21 10/24/21 10/24/21 Range/Units 11:31 14:31 16:45 WBC (3.8-10.6) k/uL RBC (4.30-5.90) m/uL Hgb (13.0-17.5) gm/dL Hct (39.0-53.0) % MCV (80.0-100.0) fL Neutrophils # (Manual) (1.3-7.7) k/uL Lymphocytes # (Manual) (1.0-4.8) k/uL ABG pCO2 (35-45) mmHg ABG pO2 (83-108) mmHg ABG HCO3 (21-25) mmol/L ABG Total CO2 (19-24) mmol/L ABG O2 Saturation (94-97) % Potassium (3.5-5.1) mmol/L Chloride (98-107) mmol/L Carbon Dioxide (22-30) mmol/L BUN (9-20) mg/dL Creatinine (0.66-1.25) mg/dL Glucose (74-99) mg/dL POC Glucose (mg/dL) 163 H 154 H 134 H (75-99) mg/dL Calcium (8.4-10.2) mg/dL AST (17-59) U/L Total Protein (6.3-8.2) g/dL Albumin (3.5-5.0) g/dL Procalcitonin (0.02-0.09) ng/mL 10/24/21 10/24/21 10/24/21 Range/Units 17:38 20:09 22:07 WBC (3.8-10.6) k/uL RBC (4.30-5.90) m/uL Hgb (13.0-17.5) gm/dL Hct (39.0-53.0) % MCV (80.0-100.0) fL Neutrophils # (Manual) (1.3-7.7) k/uL Lymphocytes # (Manual) (1.0-4.8) k/uL ABG pCO2 (35-45) mmHg ABG pO2 (83-108) mmHg ABG HCO3 (21-25) mmol/L ABG Total CO2 (19-24) mmol/L ABG O2 Saturation (94-97) % Potassium 3.3 L (3.5-5.1) mmol/L Chloride (98-107) mmol/L Carbon Dioxide (22-30) mmol/L BUN (9-20) mg/dL Creatinine (0.66-1.25) mg/dL Glucose (74-99) mg/dL POC Glucose (mg/dL) 103 H 116 H (75-99) mg/dL Calcium (8.4-10.2) mg/dL AST (17-59) U/L Total Protein (6.3-8.2) g/dL Albumin (3.5-5.0) g/dL Procalcitonin (0.02-0.09) ng/mL 10/25/21 10/25/21 10/25/21 Range/Units 00:05 01:22 04:40 WBC (3.8-10.6) k/uL RBC (4.30-5.90) m/uL Hgb (13.0-17.5) gm/dL Hct (39.0-53.0) % MCV (80.0-100.0) fL Neutrophils # (Manual) (1.3-7.7) k/uL Lymphocytes # (Manual) (1.0-4.8) k/uL ABG pCO2 (35-45) mmHg ABG pO2 155 H 116 H (83-108) mmHg ABG HCO3 (21-25) mmol/L ABG Total CO2 25 H 26 H (19-24) mmol/L ABG O2 Saturation 99.6 H 99.0 H (94-97) % Potassium (3.5-5.1) mmol/L Chloride (98-107) mmol/L Carbon Dioxide (22-30) mmol/L BUN (9-20) mg/dL Creatinine (0.66-1.25) mg/dL Glucose (74-99) mg/dL POC Glucose (mg/dL) 113 H (75-99) mg/dL Calcium (8.4-10.2) mg/dL AST (17-59) U/L Total Protein (6.3-8.2) g/dL Albumin (3.5-5.0) g/dL Procalcitonin (0.02-0.09) ng/mL 10/25/21 10/25/21 Range/Units 04:43 04:43 WBC 13.1 H (3.8-10.6) k/uL RBC 2.91 L (4.30-5.90) m/uL Hgb 9.7 L (13.0-17.5) gm/dL Hct 29.6 L (39.0-53.0) % MCV 101.6 H (80.0-100.0) fL Neutrophils # (Manual) (1.3-7.7) k/uL Lymphocytes # (Manual) (1.0-4.8) k/uL ABG pCO2 (35-45) mmHg ABG pO2 (83-108) mmHg ABG HCO3 (21-25) mmol/L ABG Total CO2 (19-24) mmol/L ABG O2 Saturation (94-97) % Potassium (3.5-5.1) mmol/L Chloride 113 H (98-107) mmol/L Carbon Dioxide (22-30) mmol/L BUN 106 H* (9-20) mg/dL Creatinine 2.60 H (0.66-1.25) mg/dL Glucose 115 H (74-99) mg/dL POC Glucose (mg/dL) (75-99) mg/dL Calcium 8.2 L (8.4-10.2) mg/dL AST (17-59) U/L Total Protein (6.3-8.2) g/dL Albumin (3.5-5.0) g/dL Procalcitonin (0.02-0.09) ng/mL Microbiology - Last 24 Hours (Table) 10/23/21 05:50 Blood Culture Gram Stain - Preliminary Blood 10/23/21 05:50 Blood Culture - Final Blood 10/22/21 06:01 Blood Culture Gram Stain - Final Blood Blood Culture - Final Staphylococcus aureus 10/21/21 10:37 Blood Culture Gram Stain - Final Blood Blood Culture - Final Staphylococcus aureus Assessment and Plan Plan: Septic shock, MSSA, off vasopressors and the patient is currently maintaining his own blood pressure. The patient was found to have MSSA in the urine and in the blood. Note that the patient has been persistently bacteremic. Blood cultures on yesterday's since showing gram-positive cocci, currently on IV Kefzol 2 g every 8 hours. There is a increased likelihood for infective endocarditis special with a persistent bacteremia. Will need a CRYSTAL. Acute hypoxic respiratory failure, currently intubated on a mechanical ventilator, chest x-ray and blood gases were noted Mental status changes, multifactorial, related to drug withdrawal was and sepsis, currently intubated on a mechanical ventilator and the patient sedated with propofol. Diabetic ketoacidosis , the patient is a component of DKA at time of admission. Currently the patient was on insulin drip and the patient was switched to long- acting insulin with Levemir 25 units twice a day and a sliding scale coverage. Delirium tremens, on propofol IRIS on CKD, creatinine improved compared to yesterday History of type 1 diabetes mellitus, currently on Levemir insulin Anion gap metabolic acidosis, recovered Elevated troponin level. History of chronic kidney disease. History of COPD from ongoing and heavy tobacco use. History of dementia. History of chronic alcohol abuse, drinking 1/5 of vodka daily. Daily crack cocaine use. Dilutional hyponatremia, recovered Plan Keep the patient ICU Chest x-ray was noted Blood gas was noted and FiO2 is up to 40% Keep propofol Repeat another set of blood cultures Continue IV cefazolin 2 g every 8 Consult cardiology for the need for a CRYSTAL A noncontrast CAT scan of the head Start the patient on enteral feeding for nutritional support IV fluids at O long-acting insulin Levemir 25 units twice a day We'll continue to follow make further recommendations based on his progress. Critically care evaluation was done and morning and 30 minutes. The patient's critically ill. Family has been updated on his condition yesterday. Time with Patient: Greater than 30
[2021-10-25] MEDS: IPRATROPIUM-ALBUTEROL 3 ML NEB INHALATION SCH ×3 (08:10→19:07)
[2021-10-25] MEDS: CHLORHEXIDINE GLUCONATE 15 ML CUP MUCOUS MEM SCH ×2 (08:17→20:54)
[2021-10-25] MEDS: NICOTINE 21MG/24HR PATCH TRANSDERM SCH (08:18)
[2021-10-25] MEDS: PANTOPRAZOLE 40 MG/10 ML VIAL IVP SCH (08:18)
[2021-10-25] MEDS: THIAMINE 100 MG/ML 2 ML VIAL IVP SCH ×2 (08:18→20:54)
[2021-10-25] MEDS: INSULIN DETEMIR (LEVEMIR) 100 UNIT/ML SYR SQ SCH ×2 (08:39→20:54)
[2021-10-25 08:40] LABS: Glucose,Whole Blood 111 mg/dL (75-99)
--- NOTE | 2021-10-25 09:21 | P.PN ---
Subjective Progress Note Date: 10/25/21 The patient is a 55-year-old male who is currently admitted to the hospital with sepsis and acute renal failure. Cardiology was consulted for abnormal troponin. The patient has preserved LV function without wall motion abnormalities. Elevated troponins are likely secondary to acute kidney injury. We were asked to see the patient by pulmonology for CRYSTAL. The patient is currently being treated for MSSA infection and septic shock. Blood cultures positive for gram-positive cocci and there is concern about infective endocarditis. The patient was intubated overnight for respiratory failure. The patient was examined in the ICU. He is currently intubated. He is currently only responsive to noxious stimuli. GENERAL: Ill-appearing, well-nourished. NECK: Supple without JVD or thyromegaly. LUNGS: Breath sounds are coarse to auscultation. HEART: Regular rate and rhythm without murmurs, rubs or gallops. S1 and S2 heard. EXTREMITIES: Normal range of motion, generalized edema. No clubbing or cy anosis. Peripheral pulses intact and strong. VITALS: Blood pressure 97/53, pulse 87, SpO2 98% on current vent settings TELEMETRY: Sinus tachycardia LABS: WBC 13.1, hemoglobin 9.7, hematocrit 29.6, platelet 232, sodium 145, potassium 3.8, BUN 106, creatinine 2.6 IMPRESSION: Elevated troponins, not indicative of ACS, likely secondary to acute kidney injury Septicemia, blood cultures positive for gram-positive cocci Acute kidney injury, improving Mental status changes Diabetes mellitus PLAN: CRYSTAL tomorrow Further recommendations to be based upon clinical course I am dictating on behalf of Dr De Loaiza's history/physical and assessment/plan. Objective - Vital Signs Vital signs: Vital Signs Temp 99.9 F H 10/25/21 04:00 Pulse 89 10/25/21 08:25 Resp 29 H 10/25/21 05:00 BP 97/53 10/25/21 05:00 Pulse Ox 98 10/25/21 05:00 FiO2 50 10/25/21 07:25 Intake & Output 10/24/21 10/25/21 10/25/21 18:59 06:59 18:59 Intake Total 929.574 281.547 Output Total 1686 1000 Balance -756.426 -718.453 Weight 114.3 kg Intake: IV 440 200 Potassium Chloride 10 meq 100 In Water For Injection 1 100ml.bag @ 100 mls/hr IVPB Q1H [facility] Rx#: [id number] Sodium Chloride 0.9% 1, 390 100 000 ml @ 75 mls/hr IV . [id number] [facility] Rx#:[id number] ceFAZolin 2 gm In Sodium 50 Chloride 0.9% 50 ml @ 100 mls/hr IVPB Q12HR [facility] Rx #:[id number] Intake, IV Titration 489.574 81.547 Amount Dexmedetomidine/0.9% NaCl 80.779 (Pmx) 400 mcg In Empty Bag 1 bag @ 0.2 MCG/KG/HR 5.555 mls/hr IV .Q18H1M [facility] Rx#:[id number] Diltiazem 125 mg In 38.167 Sodium Chloride 0.9% 100 ml @ 10 MG/HR 10 mls/hr IV .[id number] [facility] Rx#: [id number] Insulin Regular 100 unit 8.795 In Sodium Chloride 0.9% 100 ml @ Per Protocol IV .Q0M [facility] Rx#:[id number] Potassium Chloride 10 meq 400 In Water For Injection 1 100ml.bag @ 100 mls/hr IVPB Q1H [facility] Rx#: [id number] propofoL 1,000 mg In 43.380 Empty Bag 1 bag @ 5 MCG/ KG/MIN 3.489 mls/hr IV . Q24H [facility] Rx#:[id number] Output: Urine 1686 1000 Other: Voiding Method Indwelling Catheter Indwelling Catheter # Bowel Movements 1 ABP, PAP, CO, CI - Last Documented Arterial Blood Pressure 32/28 - Labs CBC & Chem 7: 10/25/21 04:43 10/25/21 04:43 Labs: Abnormal Lab Results - Last 24 Hours (Table) 10/24/21 10/24/21 10/24/21 Range/Units 07:54 07:57 09:26 WBC (3.8-10.6) k/uL RBC (4.30-5.90) m/uL Hgb (13.0-17.5) gm/dL Hct (39.0-53.0) % MCV (80.0-100.0) fL Neutrophils # (Manual) 8.67 H (1.3-7.7) k/uL Lymphocytes # (Manual) 0.71 L (1.0-4.8) k/uL ABG pCO2 28 L (35-45) mmHg ABG pO2 74 L (83-108) mmHg ABG HCO3 17 L (21-25) mmol/L ABG Total CO2 18 L (19-24) mmol/L ABG O2 Saturation (94-97) % Potassium (3.5-5.1) mmol/L Chloride (98-107) mmol/L BUN (9-20) mg/dL Creatinine (0.66-1.25) mg/dL Glucose (74-99) mg/dL POC Glucose (mg/dL) (75-99) mg/dL Calcium (8.4-10.2) mg/dL Procalcitonin 55.50 H (0.02-0.09) ng/mL 10/24/21 10/24/21 10/24/21 Range/Units 10:04 11:31 14:31 WBC (3.8-10.6) k/uL RBC (4.30-5.90) m/uL Hgb (13.0-17.5) gm/dL Hct (39.0-53.0) % MCV (80.0-100.0) fL Neutrophils # (Manual) (1.3-7.7) k/uL Lymphocytes # (Manual) (1.0-4.8) k/uL ABG pCO2 (35-45) mmHg ABG pO2 (83-108) mmHg ABG HCO3 (21-25) mmol/L ABG Total CO2 (19-24) mmol/L ABG O2 Saturation (94-97) % Potassium (3.5-5.1) mmol/L Chloride (98-107) mmol/L BUN (9-20) mg/dL Creatinine (0.66-1.25) mg/dL Glucose (74-99) mg/dL POC Glucose (mg/dL) 194 H 163 H 154 H (75-99) mg/dL Calcium (8.4-10.2) mg/dL Procalcitonin (0.02-0.09) ng/mL 10/24/21 10/24/21 10/24/21 Range/Units 16:45 17:38 20:09 WBC (3.8-10.6) k/uL RBC (4.30-5.90) m/uL Hgb (13.0-17.5) gm/dL Hct (39.0-53.0) % MCV (80.0-100.0) fL Neutrophils # (Manual) (1.3-7.7) k/uL Lymphocytes # (Manual) (1.0-4.8) k/uL ABG pCO2 (35-45) mmHg ABG pO2 (83-108) mmHg ABG HCO3 (21-25) mmol/L ABG Total CO2 (19-24) mmol/L ABG O2 Saturation (94-97) % Potassium 3.3 L (3.5-5.1) mmol/L Chloride (98-107) mmol/L BUN (9-20) mg/dL Creatinine (0.66-1.25) mg/dL Glucose (74-99) mg/dL POC Glucose (mg/dL) 134 H 103 H (75-99) mg/dL Calcium (8.4-10.2) mg/dL Procalcitonin (0.02-0.09) ng/mL 10/24/21 10/25/21 10/25/21 Range/Units 22:07 00:05 01:22 WBC (3.8-10.6) k/uL RBC (4.30-5.90) m/uL Hgb (13.0-17.5) gm/dL Hct (39.0-53.0) % MCV (80.0-100.0) fL Neutrophils # (Manual) (1.3-7.7) k/uL Lymphocytes # (Manual) (1.0-4.8) k/uL ABG pCO2 (35-45) mmHg ABG pO2 155 H (83-108) mmHg ABG HCO3 (21-25) mmol/L ABG Total CO2 25 H (19-24) mmol/L ABG O2 Saturation 99.6 H (94-97) % Potassium (3.5-5.1) mmol/L Chloride (98-107) mmol/L BUN (9-20) mg/dL Creatinine (0.66-1.25) mg/dL Glucose (74-99) mg/dL POC Glucose (mg/dL) 116 H 113 H (75-99) mg/dL Calcium (8.4-10.2) mg/dL Procalcitonin (0.02-0.09) ng/mL 10/25/21 10/25/21 10/25/21 Range/Units 04:40 04:43 04:43 WBC 13.1 H (3.8-10.6) k/uL RBC 2.91 L (4.30-5.90) m/uL Hgb 9.7 L (13.0-17.5) gm/dL Hct 29.6 L (39.0-53.0) % MCV 101.6 H (80.0-100.0) fL Neutrophils # (Manual) (1.3-7.7) k/uL Lymphocytes # (Manual) (1.0-4.8) k/uL ABG pCO2 (35-45) mmHg ABG pO2 116 H (83-108) mmHg ABG HCO3 (21-25) mmol/L ABG Total CO2 26 H (19-24) mmol/L ABG O2 Saturation 99.0 H (94-97) % Potassium (3.5-5.1) mmol/L Chloride 113 H (98-107) mmol/L BUN 106 H* (9-20) mg/dL Creatinine 2.60 H (0.66-1.25) mg/dL Glucose 115 H (74-99) mg/dL POC Glucose (mg/dL) (75-99) mg/dL Calcium 8.2 L (8.4-10.2) mg/dL Procalcitonin (0.02-0.09) ng/mL 10/25/21 Range/Units 08:38 WBC (3.8-10.6) k/uL RBC (4.30-5.90) m/uL Hgb (13.0-17.5) gm/dL Hct (39.0-53.0) % MCV (80.0-100.0) fL Neutrophils # (Manual) (1.3-7.7) k/uL Lymphocytes # (Manual) (1.0-4.8) k/uL ABG pCO2 (35-45) mmHg ABG pO2 (83-108) mmHg ABG HCO3 (21-25) mmol/L ABG Total CO2 (19-24) mmol/L ABG O2 Saturation (94-97) % Potassium (3.5-5.1) mmol/L Chloride (98-107) mmol/L BUN (9-20) mg/dL Creatinine (0.66-1.25) mg/dL Glucose (74-99) mg/dL POC Glucose (mg/dL) 111 H (75-99) mg/dL Calcium (8.4-10.2) mg/dL Procalcitonin (0.02-0.09) ng/mL Microbiology - Last 24 Hours (Table) 10/23/21 05:50 Blood Culture Gram Stain - Preliminary Blood 10/23/21 05:50 Blood Culture - Final Blood 10/22/21 06:01 Blood Culture Gram Stain - Final Blood Blood Culture - Final Staphylococcus aureus 10/21/21 10:37 Blood Culture Gram Stain - Final Blood Blood Culture - Final Staphylococcus aureus
--- NOTE | 2021-10-25 10:39 | P.PN ---
Progress Note - Text CRYSTAL scheduled for tomorrow with Dr. Ahuja in the ICU Discussed with staff in the [facility] Please see full dictation Kimberly anderson
--- NOTE | 2021-10-25 11:24 | P.PN ---
Subjective Patient is seen in follow-up for acute kidney injury and chronic kidney disease. Renal function improving. Nonoliguric. Intubated. On 50% FiO2. On Cardizem drip for A. fib. Vital signs are stable. General: Patient is confused. HEENT: No JVD. Intubated. LUNGS: Breath sounds decreased. HEART: Irregular rate and rhythm. ABDOMEN: Soft, no distention. EXTREMITITES: 1+ edema. Objective - Vital Signs Vital signs: Vital Signs Temp 100.1 F H 10/25/21 08:00 Pulse 113 H 10/25/21 10:00 Resp 34 H 10/25/21 10:00 BP 97/55 10/25/21 10:00 Pulse Ox 95 10/25/21 10:00 FiO2 50 10/25/21 10:42 Intake & Output 10/24/21 10/25/21 10/25/21 18:59 06:59 18:59 Intake Total 929.574 281.547 222.225 Output Total 1686 1000 125 Balance -756.426 -718.453 97.225 Weight 114.3 kg 114.3 kg Intake: IV 440 200 50 Potassium Chloride 10 meq 100 In Water For Injection 1 100ml.bag @ 100 mls/hr IVPB Q1H [facility] Rx#: [id number] Sodium Chloride 0.9% 1, 390 100 000 ml @ 75 mls/hr IV . [id number] [facility] Rx#:[id number] ceFAZolin 2 gm In Sodium 50 50 Chloride 0.9% 50 ml @ 100 mls/hr IVPB Q12HR [facility] Rx #:[id number] Intake, IV Titration 489.574 81.547 172.225 Amount Dexmedetomidine/0.9% NaCl 80.779 72.225 (Pmx) 400 mcg In Empty Bag 1 bag @ 0.2 MCG/KG/HR 5.555 mls/hr IV .Q18H1M [facility] Rx#:[id number] Diltiazem 125 mg In 38.167 0 Sodium Chloride 0.9% 100 ml @ 10 MG/HR 10 mls/hr IV .[id number] [facility] Rx#: [id number] Insulin Regular 100 unit 8.795 In Sodium Chloride 0.9% 100 ml @ Per Protocol IV .Q0M [facility] Rx#:[id number] Potassium Chloride 10 meq 400 In Water For Injection 1 100ml.bag @ 100 mls/hr IVPB Q1H [facility] Rx#: [id number] propofoL 1,000 mg In 43.380 100.000 Empty Bag 1 bag @ 5 MCG/ KG/MIN 3.489 mls/hr IV . Q24H [facility] Rx#:[id number] Output: Urine 1686 1000 125 Other: Voiding Method Indwelling Catheter Indwelling Catheter Indwelling Catheter # Bowel Movements 1 ABP, PAP, CO, CI - Last Documented Arterial Blood Pressure - Labs CBC & Chem 7: 10/25/21 04:43 10/25/21 04:43 Labs: Abnormal Lab Results - Last 24 Hours (Table) 10/24/21 10/24/21 10/24/21 Range/Units 07:54 11:31 14:31 WBC (3.8-10.6) k/uL RBC (4.30-5.90) m/uL Hgb (13.0-17.5) gm/dL Hct (39.0-53.0) % MCV (80.0-100.0) fL ABG pO2 (83-108) mmHg ABG Total CO2 (19-24) mmol/L ABG O2 Saturation (94-97) % Potassium (3.5-5.1) mmol/L Chloride (98-107) mmol/L BUN (9-20) mg/dL Creatinine (0.66-1.25) mg/dL Glucose (74-99) mg/dL POC Glucose (mg/dL) 163 H 154 H (75-99) mg/dL Calcium (8.4-10.2) mg/dL Procalcitonin 55.50 H (0.02-0.09) ng/mL 10/24/21 10/24/21 10/24/21 Range/Units 16:45 17:38 20:09 WBC (3.8-10.6) k/uL RBC (4.30-5.90) m/uL Hgb (13.0-17.5) gm/dL Hct (39.0-53.0) % MCV (80.0-100.0) fL ABG pO2 (83-108) mmHg ABG Total CO2 (19-24) mmol/L ABG O2 Saturation (94-97) % Potassium 3.3 L (3.5-5.1) mmol/L Chloride (98-107) mmol/L BUN (9-20) mg/dL Creatinine (0.66-1.25) mg/dL Glucose (74-99) mg/dL POC Glucose (mg/dL) 134 H 103 H (75-99) mg/dL Calcium (8.4-10.2) mg/dL Procalcitonin (0.02-0.09) ng/mL 10/24/21 10/25/21 10/25/21 Range/Units 22:07 00:05 01:22 WBC (3.8-10.6) k/uL RBC (4.30-5.90) m/uL Hgb (13.0-17.5) gm/dL Hct (39.0-53.0) % MCV (80.0-100.0) fL ABG pO2 155 H (83-108) mmHg ABG Total CO2 25 H (19-24) mmol/L ABG O2 Saturation 99.6 H (94-97) % Potassium (3.5-5.1) mmol/L Chloride (98-107) mmol/L BUN (9-20) mg/dL Creatinine (0.66-1.25) mg/dL Glucose (74-99) mg/dL POC Glucose (mg/dL) 116 H 113 H (75-99) mg/dL Calcium (8.4-10.2) mg/dL Procalcitonin (0.02-0.09) ng/mL 10/25/21 10/25/21 10/25/21 Range/Units 04:40 04:43 04:43 WBC 13.1 H (3.8-10.6) k/uL RBC 2.91 L (4.30-5.90) m/uL Hgb 9.7 L (13.0-17.5) gm/dL Hct 29.6 L (39.0-53.0) % MCV 101.6 H (80.0-100.0) fL ABG pO2 116 H (83-108) mmHg ABG Total CO2 26 H (19-24) mmol/L ABG O2 Saturation 99.0 H (94-97) % Potassium (3.5-5.1) mmol/L Chloride 113 H (98-107) mmol/L BUN 106 H* (9-20) mg/dL Creatinine 2.60 H (0.66-1.25) mg/dL Glucose 115 H (74-99) mg/dL POC Glucose (mg/dL) (75-99) mg/dL Calcium 8.2 L (8.4-10.2) mg/dL Procalcitonin (0.02-0.09) ng/mL 10/25/21 Range/Units 08:38 WBC (3.8-10.6) k/uL RBC (4.30-5.90) m/uL Hgb (13.0-17.5) gm/dL Hct (39.0-53.0) % MCV (80.0-100.0) fL ABG pO2 (83-108) mmHg ABG Total CO2 (19-24) mmol/L ABG O2 Saturation (94-97) % Potassium (3.5-5.1) mmol/L Chloride (98-107) mmol/L BUN (9-20) mg/dL Creatinine (0.66-1.25) mg/dL Glucose (74-99) mg/dL POC Glucose (mg/dL) 111 H (75-99) mg/dL Calcium (8.4-10.2) mg/dL Procalcitonin (0.02-0.09) ng/mL Microbiology - Last 24 Hours (Table) 10/23/21 05:50 Blood Culture Gram Stain - Preliminary Blood Blood Culture - Preliminary Presumptive Staph aureus 10/23/21 05:50 Blood Culture - Final Blood 10/22/21 06:01 Blood Culture Gram Stain - Final Blood Blood Culture - Final Staphylococcus aureus 10/21/21 10:37 Blood Culture Gram Stain - Final Blood Blood Culture - Final Staphylococcus aureus Assessment and Plan Plan: Assessment: 1. Acute kidney injury secondary to ATN secondary to septic shock. Creatinine was 2.59 on admission and peaked at 3.56 this admission - 2.6 today. Nonoliguric. No hydronephrosis noted on kidney ultrasound. 2. Septic shock secondary to staph aureus UTI and bacteremia on antibiotics. Infectious disease following. Off Levophed. 3. Chronic kidney disease stage IIIA with baseline creatinine in the range of 1.5-1.7 secondary to diabetic kidney disease. 4. Metabolic acidosis secondary to acute kidney injury and IV fluids. Status post bicarb drip. Improved. 5. Hypovolemic hyponatremia improved with IV hydration. Also component of hyperglycemia. Improved. 6. Hypokalemia from poor intake. Being replaced. 7. Diabetes mellitus. Serum acetone positive. Status post insulin drip. 8. Volume overload. 9. A. fib with RVR maintained on Cardizem drip. Plan: Add IV Lasix 40 mg once daily. Avoid nephrotoxins. Continue to monitor renal function and urine output. Preserved ejection fraction with moderate LVH noted on echocardiogram. Phosphorus 3.5 dated 10/24/21. Replace potassium.
[2021-10-25 11:45] LABS: Glucose,Whole Blood 98 mg/dL (75-99)
[2021-10-25] MEDS: FUROSEMIDE 10 MG/ML 4 ML VIAL IV SCH (11:57)
--- NOTE | 2021-10-25 12:15 | P.PN ---
Subjective Progress Note Date: 10/25/21 HISTORY OF PRESENT ILLNESS This is a 55-year-old male patient of Dr. Fischer with past medical history of diabetes mellitus on insulin pump, hypertension, seizure disorder, gastroesopha geal reflux disease, generalized anxiety disorder, tobacco use and dependence, alcohol abuse suspected. Patient is able to state that he has not felt well for 3 days and insulin pump is not in place. He is a poor historian and unable to give accurate information. Patient's is on her way to the hospital. He was brought in to the emergency center by EMS for generalized weakness. Patient was too weak apparently to get off the floor after a fall. Patient was found to be febrile at 101.6, heart rate 134, blood pressure 120/98, respiratory rate 36, pulse ox 99% on 2 L. WBC 9.8, hemoglobin 11.7, platelet count 140. Sodium 124, potassium 3.7, chloride 92, CO2 19, BUN 71 and creatinine 2.59. Blood sugar 331 and subsequent blood glucose 484 and 547. Lactic acid 1.8. Calcium 8.3. Magnesium 1.6. Troponin is 0.129. Albumin 3.4. AST 282, ALT 77, alkaline phosphatase 85. Influenza a not detected, influenza B not detected, RSV not detected, SARS Covid to not detected. Chest x-ray revealed no acute cardiopulmonary process. CAT scan of the brain revealed no acute process. Encephalomalacia of the right temporal lobe similar to 2018. Patient is seen today in the emergency center waiting for a bed, we will change bed assignment to intensive care unit, and additional lab work ordered including alcohol level, acetone, blood culture, consults added for cardiology for tachycardia, elevated troponins, vehicle trimmer for ICU management, neurology for metabolic encephalopathy and infectious disease. Patient started on empiric antibiotics with Zosyn, patient started on CIWA protocol. He is currently on bicarbonate drip with 1 amp 100 mL per hour. 10/22: Patient is in bed in moderate distress in the ICU, at the bedside. Per the the patient drinks approximately applied to the fifth daily. Patient is tachycardic/ tachypenic, urinary output 60 ML's per hour and indwelling catheter. Blood culture is positive for staph aureus. Blood gases on 32% show pO2 of 54, pCO2 34, and a pH is 7.42. He is currently high flow nasal cannula. At 10 L. He is also getting saline at 75 mL an hour, insulin at 9 units an hour, and norepinephrine at 2 mcg/m. His current antibiotics include vancomycin, daptomycin, and Zosyn. Currently white count 9.1, hemoglobin 10.1, hematocrit 31.1, and platelet count 99,000. Sodium 131, potassium 2.9, chl orides 99, CO2 22, BUN 73, and creatinine 2.89. Troponin levels were 0.129, and 0.162. Albumin is 2.4. 10/23: Patient is sedated at this time. Patient febrile with a temperature 100.9, heart rate 112, respirations 29, blood pressure 121/97, 98% on high flow nasal cannula 10 L. To Cecilia 11.5, hemoglobin 11.4, sodium 135, potassium 4.2, BUN 86, creatinine 3.56. Urine output 50 ML's per hour per indwelling catheter. He still getting saline at 75 ML's an hour, continue with IV antibiotics. Insulin drip until tomorrow. 10/24: Patient remains on low-dose sedation with Precedex and also receiving Ativan as needed. He is on insulin drip and on IV fluids at 75 mL/h. Cardiology has signed off his case. We will plan to transition off insulin drip to Levemir 25 units twice daily and 10 units of NovoLog every 6 hours along with NovoLog scale. WBC is 10.2, hemoglobin 11, platelet count 193. Sodium 142, potassium 3.6, chloride 109, CO2 18, BUN 101 and creatinine 2.85. Blood sugars are running between 130s - 187. ALT 112. Patient is status post IV Lasix 40 mg times once today potassium replaced. Echocardiogram reveals EF of 55-60% with moderate left ventricular hypertrophy, mild aortic stenosis with mean gradient of 13 mmHg, mild aortic regurgitation, mild tricuspid regurgitation, mild mitral regurgitation. 10/25: Patient remains in the intensive care unit. Patient was intubated by GABRIEL early a.m. due to tachypnea and lethargy. He also had tachycardia at that time and started on Cardizem drip per cardiology. He is currently on mechanical ventilation with tidal volume 400, FiO2 50 and PEEP of 5. He is on propofol and IV fluids only. He is continued on per Dr. Ashford. CAT scan of the brain, CRYSTAL, chest x-rays, blood cultures ordered. Temperature max 100.5, heart rate 113, blood pressure 97/55, pulse ox 95%. WBC 13.1, hemoglobin 9.7, platelet count 232. BUN 106, creatinine 2.6. Her blood glucose running between 90 and 115. All blood and urine cultures are showing staph aureus, MSSA. Chest x-ray this morning reveals pulmonary vascular congestion and small pleural effusions not significantly different from yesterday. REVIEW OF SYSTEMS Unable to obtain due to patient's mental status/intubation. PHYSICAL EXAMINATION Gen: This is a morbidly obese 55-year-old male. Found in ICU bed newly intubated and on mechanical ventilation. HEENT: Head is atraumatic, normocephalic. Pupils equal, round. Sclerae is anicteric. NECK: Supple. No JVD. No lymphadenopathy. No thyromegaly. LUNGS: Diminished with a few scattered rhonchi. No intercostal retractions. HEART: Regular rate and rhythm. No murmur. ABDOMEN: Soft. Bowel sounds are present. No masses. No tenderness. EXTREMITIES: No pedal edema. No calf tenderness. SKIN: No skin lesions noted, no ulcers, no wounds, no areas of erythema. NEUROLOGICAL: Patient is sedated ASSESSMENT AND PLAN 1. Sepsis , septic shock and MSSA bacteremia. Consult with Dr. Ashford appreciated. Patient is currently on Kefzol 2 g IV piggyback every 12 hours, continue to monitor blood cultures, CRYSTAL scheduled. 2. Metabolic encephalopathy secondary to sepsis, DTs, DKA, acute kidney injury. Consult with neurology appreciated. 3. Delirium tremors. Patient started on CIWA protocol with Ativan, thiamine, obtain alcohol level. 4. DKA in patient with diabetes mellitus type 1 insulin requiring. Patient is not on insulin pump. Transition to insulin drip to Levemir 25 units twice daily, NovoLog 10 units every 6 hours and NovoLog scale . 5. Acute kidney injury with chronic kidney disease stage III. Consult with nephrology appreciated. Nephrology is added IV Lasix 40 mg once today, 6. Anion gap metabolic acidosis secondary to acute kidney injury and DKA. Status post sodium bicarb. 7. Tachycardia most likely secondary to sepsis. Cardiology consult. 8. Elevated troponins, acute coronary syndrome ruled out. Cardiology consult appreciated and have signed off. 9. Thrombocytopenia most likely secondary to sepsis. Continue to monitor. 10. Hyponatremia. Nephrology following. 11. Acute hypoxic respiratory failure requiring intubation and mechanical ventilation, managed by pulmonary medicine. 12. Hypertension. Hold lisinopril 20 mg daily. 13. Dementia. Continue Aricept 10 mg daily. 14. Hyperlipidemia. Continue Lipitor 40 mg daily. 15. Gastroesophageal reflux disease and GI prophylaxis. Protonix 40 mg IV daily. 16. History of acute respiratory failure requiring intubation secondary to prudence ysubstance abuse which included narcotics and alcohol. 17. History of liver cirrhosis secondary to alcohol abuse. 18. History of Seizure disorder. Patient does not appear to be on Keppra anymore. 19. Generalized anxiety disorder and recurrent depression. 20. Daily crack cocaine use. Prognosis guarded. DISCHARGE PLAN To be determined. Impression and plan of care have been directed as dictated by the signing physician. Elizabeth Spicer nurse practitioner acting as scribe for signing physician. Objective - Vital Signs Vital signs: Vital Signs Temp 99.9 F H 10/25/21 04:00 Pulse 89 10/25/21 08:25 Resp 29 H 10/25/21 05:00 BP 97/53 10/25/21 05:00 Pulse Ox 98 10/25/21 05:00 FiO2 50 10/25/21 07:25 Intake & Output 10/24/21 10/25/21 10/25/21 18:59 06:59 18:59 Intake Total 929.574 281.547 Output Total 1686 1000 Balance -756.426 -718.453 Weight 114.3 kg Intake: IV 440 200 Potassium Chloride 10 meq 100 In Water For Injection 1 100ml.bag @ 100 mls/hr IVPB Q1H [facility] Rx#: [id number] Sodium Chloride 0.9% 1, 390 100 000 ml @ 75 mls/hr IV . [id number] [facility] Rx#:[id number] ceFAZolin 2 gm In Sodium 50 Chloride 0.9% 50 ml @ 100 mls/hr IVPB Q12HR [facility] Rx #:[id number] Intake, IV Titration 489.574 81.547 Amount Dexmedetomidine/0.9% NaCl 80.779 (Pmx) 400 mcg In Empty Bag 1 bag @ 0.2 MCG/KG/HR 5.555 mls/hr IV .Q18H1M [facility] Rx#:[id number] Diltiazem 125 mg In 38.167 Sodium Chloride 0.9% 100 ml @ 10 MG/HR 10 mls/hr IV .[id number] [facility] Rx#: [id number] Insulin Regular 100 unit 8.795 In Sodium Chloride 0.9% 100 ml @ Per Protocol IV .Q0M [facility] Rx#:[id number] Potassium Chloride 10 meq 400 In Water For Injection 1 100ml.bag @ 100 mls/hr IVPB Q1H [facility] Rx#: [id number] propofoL 1,000 mg In 43.380 Empty Bag 1 bag @ 5 MCG/ KG/MIN 3.489 mls/hr IV . Q24H [facility] Rx#:[id number] Output: Urine 1686 1000 Other: Voiding Method Indwelling Catheter Indwelling Catheter # Bowel Movements 1 ABP, PAP, CO, CI - Last Documented Arterial Blood Pressure - Labs CBC & Chem 7: 10/25/21 04:43 10/25/21 04:43 Labs: Abnormal Lab Results - Last 24 Hours (Table) 10/24/21 10/24/21 10/24/21 Range/Units 07:54 07:57 09:26 WBC (3.8-10.6) k/uL RBC (4.30-5.90) m/uL Hgb (13.0-17.5) gm/dL Hct (39.0-53.0) % MCV (80.0-100.0) fL Neutrophils # (Manual) 8.67 H (1.3-7.7) k/uL Lymphocytes # (Manual) 0.71 L (1.0-4.8) k/uL ABG pCO2 28 L (35-45) mmHg ABG pO2 74 L (83-108) mmHg ABG HCO3 17 L (21-25) mmol/L ABG Total CO2 18 L (19-24) mmol/L ABG O2 Saturation (94-97) % Potassium (3.5-5.1) mmol/L Chloride (98-107) mmol/L BUN (9-20) mg/dL Creatinine (0.66-1.25) mg/dL Glucose (74-99) mg/dL POC Glucose (mg/dL) (75-99) mg/dL Calcium (8.4-10.2) mg/dL Procalcitonin 55.50 H (0.02-0.09) ng/mL 10/24/21 10/24/21 10/24/21 Range/Units 10:04 11:31 14:31 WBC (3.8-10.6) k/uL RBC (4.30-5.90) m/uL Hgb (13.0-17.5) gm/dL Hct (39.0-53.0) % MCV (80.0-100.0) fL Neutrophils # (Manual) (1.3-7.7) k/uL Lymphocytes # (Manual) (1.0-4.8) k/uL ABG pCO2 (35-45) mmHg ABG pO2 (83-108) mmHg ABG HCO3 (21-25) mmol/L ABG Total CO2 (19-24) mmol/L ABG O2 Saturation (94-97) % Potassium (3.5-5.1) mmol/L Chloride (98-107) mmol/L BUN (9-20) mg/dL Creatinine (0.66-1.25) mg/dL Glucose (74-99) mg/dL POC Glucose (mg/dL) 194 H 163 H 154 H (75-99) mg/dL Calcium (8.4-10.2) mg/dL Procalcitonin (0.02-0.09) ng/mL 10/24/21 10/24/21 10/24/21 Range/Units 16:45 17:38 20:09 WBC (3.8-10.6) k/uL RBC (4.30-5.90) m/uL Hgb (13.0-17.5) gm/dL Hct (39.0-53.0) % MCV (80.0-100.0) fL Neutrophils # (Manual) (1.3-7.7) k/uL Lymphocytes # (Manual) (1.0-4.8) k/uL ABG pCO2 (35-45) mmHg ABG pO2 (83-108) mmHg ABG HCO3 (21-25) mmol/L ABG Total CO2 (19-24) mmol/L ABG O2 Saturation (94-97) % Potassium 3.3 L (3.5-5.1) mmol/L Chloride (98-107) mmol/L BUN (9-20) mg/dL Creatinine (0.66-1.25) mg/dL Glucose (74-99) mg/dL POC Glucose (mg/dL) 134 H 103 H (75-99) mg/dL Calcium (8.4-10.2) mg/dL Procalcitonin (0.02-0.09) ng/mL 10/24/21 10/25/21 10/25/21 Range/Units 22:07 00:05 01:22 WBC (3.8-10.6) k/uL RBC (4.30-5.90) m/uL Hgb (13.0-17.5) gm/dL Hct (39.0-53.0) % MCV (80.0-100.0) fL Neutrophils # (Manual) (1.3-7.7) k/uL Lymphocytes # (Manual) (1.0-4.8) k/uL ABG pCO2 (35-45) mmHg ABG pO2 155 H (83-108) mmHg ABG HCO3 (21-25) mmol/L ABG Total CO2 25 H (19-24) mmol/L ABG O2 Saturation 99.6 H (94-97) % Potassium (3.5-5.1) mmol/L Chloride (98-107) mmol/L BUN (9-20) mg/dL Creatinine (0.66-1.25) mg/dL Glucose (74-99) mg/dL POC Glucose (mg/dL) 116 H 113 H (75-99) mg/dL Calcium (8.4-10.2) mg/dL Procalcitonin (0.02-0.09) ng/mL 10/25/21 10/25/21 10/25/21 Range/Units 04:40 04:43 04:43 WBC 13.1 H (3.8-10.6) k/uL RBC 2.91 L (4.30-5.90) m/uL Hgb 9.7 L (13.0-17.5) gm/dL Hct 29.6 L (39.0-53.0) % MCV 101.6 H (80.0-100.0) fL Neutrophils # (Manual) (1.3-7.7) k/uL Lymphocytes # (Manual) (1.0-4.8) k/uL ABG pCO2 (35-45) mmHg ABG pO2 116 H (83-108) mmHg ABG HCO3 (21-25) mmol/L ABG Total CO2 26 H (19-24) mmol/L ABG O2 Saturation 99.0 H (94-97) % Potassium (3.5-5.1) mmol/L Chloride 113 H (98-107) mmol/L BUN 106 H* (9-20) mg/dL Creatinine 2.60 H (0.66-1.25) mg/dL Glucose 115 H (74-99) mg/dL POC Glucose (mg/dL) (75-99) mg/dL Calcium 8.2 L (8.4-10.2) mg/dL Procalcitonin (0.02-0.09) ng/mL 10/25/21 Range/Units 08:38 WBC (3.8-10.6) k/uL RBC (4.30-5.90) m/uL Hgb (13.0-17.5) gm/dL Hct (39.0-53.0) % MCV (80.0-100.0) fL Neutrophils # (Manual) (1.3-7.7) k/uL Lymphocytes # (Manual) (1.0-4.8) k/uL ABG pCO2 (35-45) mmHg ABG pO2 (83-108) mmHg ABG HCO3 (21-25) mmol/L ABG Total CO2 (19-24) mmol/L ABG O2 Saturation (94-97) % Potassium (3.5-5.1) mmol/L Chloride (98-107) mmol/L BUN (9-20) mg/dL Creatinine (0.66-1.25) mg/dL Glucose (74-99) mg/dL POC Glucose (mg/dL) 111 H (75-99) mg/dL Calcium (8.4-10.2) mg/dL Procalcitonin (0.02-0.09) ng/mL Microbiology - Last 24 Hours (Table) 10/23/21 05:50 Blood Culture Gram Stain - Preliminary Blood 10/23/21 05:50 Blood Culture - Final Blood 10/22/21 06:01 Blood Culture Gram Stain - Final Blood Blood Culture - Final Staphylococcus aureus 10/21/21 10:37 Blood Culture Gram Stain - Final Blood Blood Culture - Final Staphylococcus aureus
--- NOTE | 2021-10-25 12:33 | P.PN ---
Subjective Progress Note Date: 10/24/21 Principal diagnosis: Sepsis and bacteremia Patient is a 55-year-old male with a past medical history significant for insulin-dependent diabetes mellitus presented to hospital with weakness and mental status changes and elevated blood sugar, patient did have evidence of MSSA bacteremia. On today's evaluation that is 10/24/2021, patient fever did have low-grade fever 100.5F this morning, the patient is hemodynamically stable, the patient is currently on Precedex and sleeping comfortably, no vomiting no diarrhea or any other changes reported by the nursing staff Objective - Vital Signs Vital signs: Vital Signs Temp 99.3 F 10/24/21 12:00 Pulse 97 10/24/21 12:00 Resp 40 H 10/24/21 12:00 BP 120/73 10/24/21 12:00 Pulse Ox 92 L 10/24/21 12:00 FiO2 Intake & Output 10/23/21 10/24/21 10/24/21 18:59 06:59 18:59 Intake Total 9732.078 4918.383 83.795 Output Total 1065 950 50 Balance 72.085 103.383 33.795 Weight 116.3 kg Intake: IV 950 900 75 Sodium Chloride 0.9% 1, 900 900 75 000 ml @ 75 mls/hr IV . [id number] [facility] Rx#:[id number] ceFAZolin 2 gm In Sodium 50 Chloride 0.9% 50 ml @ 100 mls/hr IVPB Q12HR [facility] Rx #:[id number] Intake, IV Titration 187.085 153.383 8.795 Amount Dexmedetomidine/0.9% NaCl 125.693 104.482 (Pmx) 400 mcg In Empty Bag 1 bag @ 0.2 MCG/KG/HR 5.555 mls/hr IV .Q18H1M [facility] Rx#:[id number] Insulin Regular 100 unit 61.392 48.901 8.795 In Sodium Chloride 0.9% 100 ml @ Per Protocol IV .Q0M [facility] Rx#:[id number] Output: Urine 1065 950 50 Other: Voiding Method Indwelling Catheter Indwelling Catheter - Exam GENERAL DESCRIPTION: Middle-aged male lying in bed in no distress RESPIRATORY SYSTEM: Unlabored breathing , decreased breath sounds at bases HEART: S1 S2 regular rate and rhythm , ABDOMEN: Soft , no tenderness EXTREMITIES: No edema feet - Labs CBC & Chem 7: 10/25/21 04:43 10/25/21 04:43 Labs: Abnormal Lab Results - Last 24 Hours (Table) 10/23/21 10/23/21 10/23/21 Range/Units 12:58 14:01 14:59 RBC (4.30-5.90) m/uL Hgb (13.0-17.5) gm/dL Hct (39.0-53.0) % MCV (80.0-100.0) fL Neutrophils # (Manual) (1.3-7.7) k/uL Lymphocytes # (Manual) (1.0-4.8) k/uL ABG pCO2 (35-45) mmHg ABG pO2 (83-108) mmHg ABG HCO3 (21-25) mmol/L ABG Total CO2 (19-24) mmol/L Chloride (98-107) mmol/L Carbon Dioxide (22-30) mmol/L BUN (9-20) mg/dL Creatinine (0.66-1.25) mg/dL Glucose (74-99) mg/dL POC Glucose (mg/dL) 175 H 197 H 208 H (75-99) mg/dL Calcium (8.4-10.2) mg/dL AST (17-59) U/L Total Protein (6.3-8.2) g/dL Albumin (3.5-5.0) g/dL 10/23/21 10/23/21 10/23/21 Range/Units 15:52 17:00 17:54 RBC (4.30-5.90) m/uL Hgb (13.0-17.5) gm/dL Hct (39.0-53.0) % MCV (80.0-100.0) fL Neutrophils # (Manual) (1.3-7.7) k/uL Lymphocytes # (Manual) (1.0-4.8) k/uL ABG pCO2 (35-45) mmHg ABG pO2 (83-108) mmHg ABG HCO3 (21-25) mmol/L ABG Total CO2 (19-24) mmol/L Chloride (98-107) mmol/L Carbon Dioxide (22-30) mmol/L BUN (9-20) mg/dL Creatinine (0.66-1.25) mg/dL Glucose (74-99) mg/dL POC Glucose (mg/dL) 225 H 288 H 199 H (75-99) mg/dL Calcium (8.4-10.2) mg/dL AST (17-59) U/L Total Protein (6.3-8.2) g/dL Albumin (3.5-5.0) g/dL 10/23/21 10/23/21 10/23/21 Range/Units 18:56 20:01 20:58 RBC (4.30-5.90) m/uL Hgb (13.0-17.5) gm/dL Hct (39.0-53.0) % MCV (80.0-100.0) fL Neutrophils # (Manual) (1.3-7.7) k/uL Lymphocytes # (Manual) (1.0-4.8) k/uL ABG pCO2 (35-45) mmHg ABG pO2 (83-108) mmHg ABG HCO3 (21-25) mmol/L ABG Total CO2 (19-24) mmol/L Chloride (98-107) mmol/L Carbon Dioxide (22-30) mmol/L BUN (9-20) mg/dL Creatinine (0.66-1.25) mg/dL Glucose (74-99) mg/dL POC Glucose (mg/dL) 191 H 179 H 178 H (75-99) mg/dL Calcium (8.4-10.2) mg/dL AST (17-59) U/L Total Protein (6.3-8.2) g/dL Albumin (3.5-5.0) g/dL 10/23/21 10/23/21 10/23/21 Range/Units 22:04 23:12 23:57 RBC (4.30-5.90) m/uL Hgb (13.0-17.5) gm/dL Hct (39.0-53.0) % MCV (80.0-100.0) fL Neutrophils # (Manual) (1.3-7.7) k/uL Lymphocytes # (Manual) (1.0-4.8) k/uL ABG pCO2 (35-45) mmHg ABG pO2 (83-108) mmHg ABG HCO3 (21-25) mmol/L ABG Total CO2 (19-24) mmol/L Chloride (98-107) mmol/L Carbon Dioxide (22-30) mmol/L BUN (9-20) mg/dL Creatinine (0.66-1.25) mg/dL Glucose (74-99) mg/dL POC Glucose (mg/dL) 142 H 142 H 130 H (75-99) mg/dL Calcium (8.4-10.2) mg/dL AST (17-59) U/L Total Protein (6.3-8.2) g/dL Albumin (3.5-5.0) g/dL 10/24/21 10/24/21 10/24/21 Range/Units 00:21 01:19 02:15 RBC (4.30-5.90) m/uL Hgb (13.0-17.5) gm/dL Hct (39.0-53.0) % MCV (80.0-100.0) fL Neutrophils # (Manual) (1.3-7.7) k/uL Lymphocytes # (Manual) (1.0-4.8) k/uL ABG pCO2 (35-45) mmHg ABG pO2 (83-108) mmHg ABG HCO3 (21-25) mmol/L ABG Total CO2 (19-24) mmol/L Chloride (98-107) mmol/L Carbon Dioxide (22-30) mmol/L BUN (9-20) mg/dL Creatinine (0.66-1.25) mg/dL Glucose (74-99) mg/dL POC Glucose (mg/dL) 133 H 138 H 134 H (75-99) mg/dL Calcium (8.4-10.2) mg/dL AST (17-59) U/L Total Protein (6.3-8.2) g/dL Albumin (3.5-5.0) g/dL 10/24/21 10/24/21 10/24/21 Range/Units 03:15 04:03 05:54 RBC (4.30-5.90) m/uL Hgb (13.0-17.5) gm/dL Hct (39.0-53.0) % MCV (80.0-100.0) fL Neutrophils # (Manual) (1.3-7.7) k/uL Lymphocytes # (Manual) (1.0-4.8) k/uL ABG pCO2 (35-45) mmHg ABG pO2 (83-108) mmHg ABG HCO3 (21-25) mmol/L ABG Total CO2 (19-24) mmol/L Chloride (98-107) mmol/L Carbon Dioxide (22-30) mmol/L BUN (9-20) mg/dL Creatinine (0.66-1.25) mg/dL Glucose (74-99) mg/dL POC Glucose (mg/dL) 166 H 165 H 129 H (75-99) mg/dL Calcium (8.4-10.2) mg/dL AST (17-59) U/L Total Protein (6.3-8.2) g/dL Albumin (3.5-5.0) g/dL 10/24/21 10/24/21 10/24/21 Range/Units 07:02 07:54 07:57 RBC 3.37 L (4.30-5.90) m/uL Hgb 11.0 L (13.0-17.5) gm/dL Hct 34.3 L (39.0-53.0) % MCV 101.9 H (80.0-100.0) fL Neutrophils # (Manual) 8.67 H (1.3-7.7) k/uL Lymphocytes # (Manual) 0.71 L (1.0-4.8) k/uL ABG pCO2 (35-45) mmHg ABG pO2 (83-108) mmHg ABG HCO3 (21-25) mmol/L ABG Total CO2 (19-24) mmol/L Chloride 109 H (98-107) mmol/L Carbon Dioxide 18 L (22-30) mmol/L BUN 101 H* (9-20) mg/dL Creatinine 2.85 H (0.66-1.25) mg/dL Glucose 181 H (74-99) mg/dL POC Glucose (mg/dL) 133 H (75-99) mg/dL Calcium 8.0 L (8.4-10.2) mg/dL AST 112 H (17-59) U/L Total Protein 5.6 L (6.3-8.2) g/dL Albumin 2.5 L (3.5-5.0) g/dL 10/24/21 10/24/21 10/24/21 Range/Units 08:11 09:26 10:04 RBC (4.30-5.90) m/uL Hgb (13.0-17.5) gm/dL Hct (39.0-53.0) % MCV (80.0-100.0) fL Neutrophils # (Manual) (1.3-7.7) k/uL Lymphocytes # (Manual) (1.0-4.8) k/uL ABG pCO2 28 L (35-45) mmHg ABG pO2 74 L (83-108) mmHg ABG HCO3 17 L (21-25) mmol/L ABG Total CO2 18 L (19-24) mmol/L Chloride (98-107) mmol/L Carbon Dioxide (22-30) mmol/L BUN (9-20) mg/dL Creatinine (0.66-1.25) mg/dL Glucose (74-99) mg/dL POC Glucose (mg/dL) 187 H 194 H (75-99) mg/dL Calcium (8.4-10.2) mg/dL AST (17-59) U/L Total Protein (6.3-8.2) g/dL Albumin (3.5-5.0) g/dL 10/24/21 Range/Units 11:31 RBC (4.30-5.90) m/uL Hgb (13.0-17.5) gm/dL Hct (39.0-53.0) % MCV (80.0-100.0) fL Neutrophils # (Manual) (1.3-7.7) k/uL Lymphocytes # (Manual) (1.0-4.8) k/uL ABG pCO2 (35-45) mmHg ABG pO2 (83-108) mmHg ABG HCO3 (21-25) mmol/L ABG Total CO2 (19-24) mmol/L Chloride (98-107) mmol/L Carbon Dioxide (22-30) mmol/L BUN (9-20) mg/dL Creatinine (0.66-1.25) mg/dL Glucose (74-99) mg/dL POC Glucose (mg/dL) 163 H (75-99) mg/dL Calcium (8.4-10.2) mg/dL AST (17-59) U/L Total Protein (6.3-8.2) g/dL Albumin (3.5-5.0) g/dL Microbiology - Last 24 Hours (Table) 10/22/21 06:01 Blood Culture Gram Stain - Final Blood Blood Culture - Final Staphylococcus aureus 10/21/21 10:37 Blood Culture Gram Stain - Final Blood Blood Culture - Final Staphylococcus aureus 10/23/21 05:50 Blood Culture - Preliminary Blood No Growth after 24 hours 10/21/21 10:00 Urine Culture - Final Urine,Voided Staphylococcus aureus Assessment and Plan (1) Bacteremia Current Visit: Yes Status: Acute Code(s): R78.81 - BACTEREMIA SNOMED Code(s): 8044289 Plan: 1patient presented to hospital with weakness in this patient did have a fever tachycardia meeting criteria for sepsis though initial work-up for a source has been negative with a negative UA chest x-ray did not show any acute abnormality patient abdominal was soft clinical examination and no evidence of any lower extremity cellulitis or joint swelling. Ultrasound negative for any hydronephrosis or cholecystitis 2 patient blood culture presumptive MSSA, patient to continue with the cefazolin, patient will benefit from CRYSTAL to rule out endovascular source Time with Patient: Less than 30
--- NOTE | 2021-10-25 12:35 | P.PN ---
Subjective Progress Note Date: 10/25/21 Principal diagnosis: Sepsis and bacteremia Patient is a 55-year-old male with a past medical history significant for insulin-dependent diabetes mellitus presented to hospital with weakness and mental status changes and elevated blood sugar, patient did have evidence of MSSA bacteremia. On today's evaluation that is 10/25/2021, patient fever did have low-grade fever 100.1F this morning, the patient is hemodynamically stable not requiring any pressor support, the patient did went to display distance and appeared intubated last evening, the patient is currently on 50% FiO2 and no significant purulent secretion through the ET reported by the nursing staff and no diarrhea Objective - Vital Signs Vital signs: Vital Signs Temp 100.1 F H 10/25/21 08:00 Pulse 113 H 10/25/21 11:45 Resp 33 H 10/25/21 11:45 BP 80/50 10/25/21 11:00 Pulse Ox 96 10/25/21 11:00 FiO2 50 10/25/21 10:42 Intake & Output 10/24/21 10/25/21 10/25/21 18:59 06:59 18:59 Intake Total 929.574 281.547 222.225 Output Total 1686 1000 125 Balance -756.426 -718.453 97.225 Weight 114.3 kg 114.3 kg Intake: IV 440 200 50 Potassium Chloride 10 meq 100 In Water For Injection 1 100ml.bag @ 100 mls/hr IVPB Q1H [facility] Rx#: [id number] Sodium Chloride 0.9% 1, 390 100 000 ml @ 75 mls/hr IV . [id number] [facility] Rx#:[id number] ceFAZolin 2 gm In Sodium 50 50 Chloride 0.9% 50 ml @ 100 mls/hr IVPB Q12HR [facility] Rx #:[id number] Intake, IV Titration 489.574 81.547 172.225 Amount Dexmedetomidine/0.9% NaCl 80.779 72.225 (Pmx) 400 mcg In Empty Bag 1 bag @ 0.2 MCG/KG/HR 5.555 mls/hr IV .Q18H1M [facility] Rx#:[id number] Diltiazem 125 mg In 38.167 0 Sodium Chloride 0.9% 100 ml @ 10 MG/HR 10 mls/hr IV .[id number] [facility] Rx#: [id number] Insulin Regular 100 unit 8.795 In Sodium Chloride 0.9% 100 ml @ Per Protocol IV .Q0M [facility] Rx#:[id number] Potassium Chloride 10 meq 400 In Water For Injection 1 100ml.bag @ 100 mls/hr IVPB Q1H [facility] Rx#: [id number] propofoL 1,000 mg In 43.380 100.000 Empty Bag 1 bag @ 5 MCG/ KG/MIN 3.489 mls/hr IV . Q24H [facility] Rx#:[id number] Output: Urine 1686 1000 125 Other: Voiding Method Indwelling Catheter Indwelling Catheter Indwelling Catheter # Bowel Movements 1 ABP, PAP, CO, CI - Last Documented Arterial Blood Pressure 32/28 - Exam GENERAL DESCRIPTION: Middle-aged male intubated on the vent RESPIRATORY SYSTEM: Unlabored breathing , decreased breath sounds at bases HEART: S1 S2 regular rate and rhythm , ABDOMEN: Soft , no tenderness EXTREMITIES: No edema feet - Labs CBC & Chem 7: 10/25/21 04:43 10/25/21 04:43 Labs: Abnormal Lab Results - Last 24 Hours (Table) 10/24/21 10/24/21 10/24/21 Range/Units 07:54 14:31 16:45 WBC (3.8-10.6) k/uL RBC (4.30-5.90) m/uL Hgb (13.0-17.5) gm/dL Hct (39.0-53.0) % MCV (80.0-100.0) fL ABG pO2 (83-108) mmHg ABG Total CO2 (19-24) mmol/L ABG O2 Saturation (94-97) % Potassium (3.5-5.1) mmol/L Chloride (98-107) mmol/L BUN (9-20) mg/dL Creatinine (0.66-1.25) mg/dL Glucose (74-99) mg/dL POC Glucose (mg/dL) 154 H 134 H (75-99) mg/dL Calcium (8.4-10.2) mg/dL Procalcitonin 55.50 H (0.02-0.09) ng/mL 10/24/21 10/24/21 10/24/21 Range/Units 17:38 20:09 22:07 WBC (3.8-10.6) k/uL RBC (4.30-5.90) m/uL Hgb (13.0-17.5) gm/dL Hct (39.0-53.0) % MCV (80.0-100.0) fL ABG pO2 (83-108) mmHg ABG Total CO2 (19-24) mmol/L ABG O2 Saturation (94-97) % Potassium 3.3 L (3.5-5.1) mmol/L Chloride (98-107) mmol/L BUN (9-20) mg/dL Creatinine (0.66-1.25) mg/dL Glucose (74-99) mg/dL POC Glucose (mg/dL) 103 H 116 H (75-99) mg/dL Calcium (8.4-10.2) mg/dL Procalcitonin (0.02-0.09) ng/mL 10/25/21 10/25/21 10/25/21 Range/Units 00:05 01:22 04:40 WBC (3.8-10.6) k/uL RBC (4.30-5.90) m/uL Hgb (13.0-17.5) gm/dL Hct (39.0-53.0) % MCV (80.0-100.0) fL ABG pO2 155 H 116 H (83-108) mmHg ABG Total CO2 25 H 26 H (19-24) mmol/L ABG O2 Saturation 99.6 H 99.0 H (94-97) % Potassium (3.5-5.1) mmol/L Chloride (98-107) mmol/L BUN (9-20) mg/dL Creatinine (0.66-1.25) mg/dL Glucose (74-99) mg/dL POC Glucose (mg/dL) 113 H (75-99) mg/dL Calcium (8.4-10.2) mg/dL Procalcitonin (0.02-0.09) ng/mL 10/25/21 10/25/21 10/25/21 Range/Units 04:43 04:43 08:38 WBC 13.1 H (3.8-10.6) k/uL RBC 2.91 L (4.30-5.90) m/uL Hgb 9.7 L (13.0-17.5) gm/dL Hct 29.6 L (39.0-53.0) % MCV 101.6 H (80.0-100.0) fL ABG pO2 (83-108) mmHg ABG Total CO2 (19-24) mmol/L ABG O2 Saturation (94-97) % Potassium (3.5-5.1) mmol/L Chloride 113 H (98-107) mmol/L BUN 106 H* (9-20) mg/dL Creatinine 2.60 H (0.66-1.25) mg/dL Glucose 115 H (74-99) mg/dL POC Glucose (mg/dL) 111 H (75-99) mg/dL Calcium 8.2 L (8.4-10.2) mg/dL Procalcitonin (0.02-0.09) ng/mL Microbiology - Last 24 Hours (Table) 10/23/21 05:50 Blood Culture Gram Stain - Preliminary Blood Blood Culture - Preliminary Presumptive Staph aureus 10/23/21 05:50 Blood Culture - Final Blood 10/22/21 06:01 Blood Culture Gram Stain - Final Blood Blood Culture - Final Staphylococcus aureus 10/21/21 10:37 Blood Culture Gram Stain - Final Blood Blood Culture - Final Staphylococcus aureus Assessment and Plan (1) Bacteremia Current Visit: Yes Status: Acute Code(s): R78.81 - BACTEREMIA SNOMED Code(s): 4746574 Plan: 1patient presented to hospital with weakness in this patient did have a fever tachycardia meeting criteria for sepsis though initial work-up for a source has been negative with a negative UA chest x-ray did not show any acute abnormality patient abdominal was soft clinical examination and no evidence of any lower extremity cellulitis or joint swelling. Ultrasound negative for any hydronephrosis or cholecystitis 2patient did have persistent MSSA bacteremia concerning for endovascular source, the schedule for tomorrow antibiotic will be switched to Naficillin with daily blood cultures to document clearance of his bacteremia, family at the bedside question answered Time with Patient: Less than 30
--- NOTE | 2021-10-25 12:57 | CT ---
EXAMINATION TYPE: CT brain wo con DATE OF EXAM: 10/25/2021 COMPARISON: CT dated 10/20/2021 HISTORY: ams CT DLP: 1149.4 mGycm Automated exposure control for dose reduction was used. TECHNIQUE: CT scan of the brain is performed without IV contrast administration. 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 No significant hemorrhagic transformation or mass effect. Stable area of encephalomalacia in t he right temporal lobe. Arterial atherosclerotic calcifications. Brain volume loss changes, more than expected for the patien t's age. Tiny chronic infarcts in the left cerebellar hemisphere, appreciated previously. No acute intracranial hemorrhage. No midline shift, herniation or ventriculomegaly. Unremarkable basa l cisterns, sella and CP angles. No gross space-occupying lesion. Unremarkable orbits. Nasopharyngeal fluid likely secondary to intubation. Mucosal thickening of the l eft maxillary sinus. Clear mastoid air cells. No aggressive bone lesion. IMPRESSION: Interval development of left frontal and left parietal cortical and subcortical infarcts as described above, possibly representing watershed infarcts however underlying embolic etiology cannot be exclud ed. Recommend clinical correlation and further workup. Other findings as described above.
[2021-10-25] MEDS ORDERED: INSULIN ASPART (NovoLOG) 100 UNIT/ML VIAL SQ SCH (15:15)
[2021-10-25] MEDS: NAFCILLIN 2 GM in DEXTROSE 5% IN WATER 100 ML IVPB SCH ×4 (15:57→20:53)
[2021-10-25 18:07] LABS: Glucose,Whole Blood 144 mg/dL (75-99)
[2021-10-25] MEDS ORDERED: ASPIRIN 81 MG PO SCH (21:00)
[2021-10-26 00:11] LABS: Glucose,Whole Blood 244 mg/dL (75-99)
[2021-10-26] MEDS: NAFCILLIN 2 GM in DEXTROSE 5% IN WATER 100 ML IVPB SCH ×12 (00:18→20:50)
[2021-10-26] MEDS: INSULIN ASPART (NovoLOG) 100 UNIT/ML VIAL SQ SCH ×8 (00:18→17:25)
[2021-10-26] MEDS: DILTIAZEM 125 MG in SODIUM CHLORIDE 0.9% 100 ML IV SCH ×2 (02:41→14:02)
[2021-10-26] MEDS: LORazepam 2 MG/ML INJ IV PRN (02:42)
--- NOTE | 2021-10-26 03:33 | XR ---
EXAMINATION TYPE: XR chest 1V portable DATE OF EXAM: 10/26/2021 COMPARISON: 10/25/2021 HISTORY: Tube placement TECHNIQUE: FINDINGS: There is endotracheal tube 4 cm from the pamela. There is left sided central venous cathete r with tip in the superior vena cava. There is some mild pleural reaction and atelectasis at the lung bases. There is nasogastric tube in the stomach. There are chest leads. No heart failure. IMPRESSION: There is some mild atelectasis left lung base. There is improved aeration of the lungs ov erall compared to yesterday.
[2021-10-26 05:26] LABS: Basophils % (A) 0 %; Eosinophils # (A) 0.2 k/uL (0-0.7); Eosinophils % (A) 1 %; HGB 9.9 gm/dL (13.0-17.5); Hypochromasia Slight; Lymphocytes # (A) 0.6 k/uL (1.0-4.8); Lymphocytes % (A) 5 %; MCH 31.8 pg (25.0-35.0); MCV 102.6 fL (80.0-100.0); Macrocytosis Slight; Mean Platelet Volume 9.7; Monocytes # (A) 0.5 k/uL (0-1.0); Monocytes % (A) 3 %; Neutrophils # (A) 12.1 k/uL (1.3-7.7); Neutrophils % (A) 89 %; Platelet Count 255 k/uL (150-450); RBC 3.12 m/uL (4.30-5.90); RDW 13.8 % (11.5-15.5); WBC 13.6 k/uL (3.8-10.6)
[2021-10-26 05:36] LABS: Albumin 2.3 g/dL (3.5-5.0); Potassium 3.3 mmol/L (3.5-5.1); Total Bilirubin 1.5 mg/dL (0.2-1.3); Total Protein 5.5 g/dL (6.3-8.2)
[2021-10-26 05:46] LABS: ABG Base Excess 1.9 mmol/L; ABG HCO3 26 mmol/L (21-25); ABG Oxygen Saturation 97.2 % (94-97); ABG PCO2 37 mmHg (35-45); ABG PH 7.45 (7.35-7.45); ABG PO2 84 mmHg (83-108); ABG TCO2 27 mmol/L (19-24)
[2021-10-26 05:53] LABS: Allen Test Performed? No
[2021-10-26 05:55] LABS: Glucose,Whole Blood 194 mg/dL (75-99)
[2021-10-26] MEDS: NOREPINEPHRINE 4 MG in SODIUM CHLORIDE 0.9% 250 ML IV SCH ×2 (07:37→17:06)
[2021-10-26] MEDS: IPRATROPIUM-ALBUTEROL 3 ML NEB INHALATION SCH ×3 (07:38→20:53)
[2021-10-26] MEDS: PANTOPRAZOLE 40 MG/10 ML VIAL IVP SCH (07:41)
[2021-10-26] MEDS: NICOTINE 21MG/24HR PATCH TRANSDERM SCH (07:41)
[2021-10-26] MEDS: CHLORHEXIDINE GLUCONATE 15 ML CUP MUCOUS MEM SCH ×2 (07:41→21:33)
[2021-10-26] MEDS: THIAMINE 100 MG/ML 2 ML VIAL IVP SCH ×2 (07:41→21:34)
[2021-10-26] MEDS: FUROSEMIDE 10 MG/ML 4 ML VIAL IV SCH (07:41)
[2021-10-26] MEDS: INSULIN DETEMIR (LEVEMIR) 100 UNIT/ML SYR SQ SCH ×2 (07:43→21:34)
[2021-10-26 07:45] LABS: Glucose,Whole Blood 177 mg/dL (75-99)
--- NOTE | 2021-10-26 08:36 | P.PN ---
Subjective Progress Note Date: 10/26/21 10/24/2021, [facility] patient for a follow-up in the patient is altered mentally and the patient is still going through delirium tremens. The patient is currently on Precedex running at 0.2 mcg/kg per minute. Note that the patient is a 55-year-old female patient with known history of diabetes mellitus type 1, hypertension, chronic kidney disease, COPD, dementia, alcohol abuse and crack cocaine abuse. Patient currently is calm and comfortable. Arousable. He is not following commands consistently. At times, gets restless and agitated and the Precedex dose being titrated by the nursing staff here in the intensive care unit. The patient remains on IV fluids with normal saline at the rate of 75 mL an hour. Urine output is adequate. The patient is currently not requiring any pressors. Overall fluid balance is +2.8 L over the past 24 hours and the patient remains on IV Solu regarding MSSA septicemia. Note that the patient's urine culture and blood culture both indicated MSSA. The patient is currently on 4 L about 2 by nasal cannula. The white cell count is at 10.2 with a hemoglobin of 11 and a platelet count of 193. At the same time, the patient has a sodium level of 142, serum bicarbonate is 18 with a BUN of 101 and a creatinine of 2.85 which is improved compared to yesterday. The total protein is at 5.6 with an albumin level of 2.5. The patient otherwise is resting comfortably in bed. No other significant events over the past 24 hours. Nephrology saw the patient and patient was switched from normal saline to a bicarb infusion to counteract his metabolic acidosis. Meanwhile, the patient on Levemir insulin 25 units twice a day and a NovoLog sliding scale coverage. He remains on Protonix. No other significant issues overnight. 10/25/2021, I'm seeing the patient for a follow-up. Events from yesterday evening were noted. The patient went into a tachycardic rhythm/sinus tachycardia versus SVT and the patient was quite lethargic, and unresponsive. He was breathing was also labored. That point, decided to proceed with intubation and the patient was intubated by the [facility] overnight and he was placed on a mechanical ventilator. This morning, is converted back into normal sinus rhythm. His not receiving any effusions REGARDING his heart rate. He did receive Cardizem yesterday which was discontinued after the patient's potassium converted into normal sinus rhythm. He is currently on propofol running at 40 mg/kg per minute. He is calm and comfortable. He is quite cigarettes a mechanical ventilator. He is an assist-control mode of mechanical ventilation at the rate of 26 with an FiO2 of 50% with a PEEP of 5 and tidal volume of 400. Chest x-ray postintubation shows increased pulmonary vessel markings and pulmonary vessel congestion and edema. The blood gases from today shows a pH of 7.43 with a pCO2 of 37 and pO2 116 and this was done and FiO2 of 70%. Peak airway pressures around 18. The patient is on IV fluids at [facility]. He did receive bicarb infusion yesterday and his acid base status is improved considerably. White cell count of 15.1 with a hemoglobin above 7 and a platelet count of 232. Sodium is at 145 with a potassium level of 3.8 150 with a bicarb of 23. BUN is 106 and creatinine is at 2.6. Note that his renal function has improved compared to yesterday knowing that his creatinine from yesterday was at 2.8. The patient is currently nothing by mouth. He is well sedated. He is afebrile. He is on Levemir insulin 25 units twice a day along with a NovoLog sliding scale coverage. He is on IV cefazolin. Repeat cultures is again positive for gram-positive cocci and the patient is still persistently bacteremic and he herminio ins on IV Kefzol 2 g every 8 hours. The baseline echocardiogram transthoracic showed no evidence of any regurgitation, high likelihood for infective endocarditis in this patient. Comorbid conditions include type 1 diabetes mellitus, chronic kidney disease, COPD, dementia, alcoholism and crack cocaine use. He also has history of hypertension. 10/26/2021, the patient is being seen for a follow-up. The patient is currently still intubated on a mechanical ventilator and the patient is currently on propofol running at the rate of 30 milligrams per kilogram per minute. The patient's is grimacing to deep painful stimulation and he senses pain in all 4 extremities. Does not follow any commands at this point in time. A CAT scan of the brain was performed yesterday and there is a concern for septic emboli as the CAT scan of the brain showed interval development of a left frontal and parietal cortical and subcortical infarcts which could represent watershed infarct versus septic emboli. Neurology was again involved in the case and there were asked to reconsult on him. He is currently placed on aspirin. Carotid Dopplers are in progress. No seizure activity has been noted. On today's evaluation, the patient remains essentially the same mechanical ventilator setting with a rate of 26, tidal volume of 400, FiO2 of 50% with a PEEP of 5. Lung scan showed pH of 7.49 with a pCO2 of 37 and pO2 of 84. The chest x-ray from today shows adequate expansion of both lungs. ET tube is in a good location. No airspace disease or consolidation. In terms of cultures, the patient's positive blood cultures were consistent with MSSA and the patient was further switched from IV cefazolin to IV nafcillin per recommendations done by infectious disease. Cardiac rhythm is currently sinus and the patient is on no pressors. He is receiving enteral feeding for nutritional support and the sandrine ent is currently on Levemir 25 units twice a day along with a NovoLog sliding scale coverage. Note that overnight, the patient had an episode where he became quite restless and agitated and tachypneic. He also had some mild hypoxemia. He was suctioned and a large mucous plug was aspirated and Zosyn and also for cultures. As mentioned, the patient remains on IV nafcillin for now. No pressors at this point in time. He is afebrile. The plan for today is to proceed with a CRYSTAL. A carotid Doppler is also in progress. Overall fluid balance over the past 24 hours has been -1.4 L and the patient is receiving Lasix 40 m IV every 24 hours. Enterofeeding is in the form of vital high protein. Comorbid conditions include diabetes mellitus type 1, COPD, dementia, alcoholism, hypertension and crack cocaine use. His white cell count today is at 13.6 with a hemoglobin of 9.9. Sodium is 146, BUN is at 118 with a creatinine of 2.4 and as noted, the patient has a component of chronic kidney di sease. LFTs are stable at this point in time. Bilirubin is at 1.5 slightly higher yet AST is at 147 and ALT is at 17 with an alkaline phosphatase of 129. Objective - Vital Signs Vital signs: Vital Signs Temp 98.3 F 10/26/21 08:00 Pulse 86 10/26/21 08:00 Resp 32 H 10/26/21 08:00 BP 83/43 10/26/21 08:00 Pulse Ox 97 10/26/21 08:00 FiO2 50 10/26/21 08:00 Intake & Output 10/25/21 10/26/21 10/26/21 18:59 06:59 18:59 Intake Total 559.892 903.167 280.189 Output Total 1225 1440 80 Balance -665.108 -536.833 200.189 Weight 114.3 kg 112.6 kg Intake: IV 230 420 120 .9 @ 20 80 120 20 Nafcillin 2 gm In 100 300 100 Dextrose 5% in Water 100 ml @ 50 mls/hr IVPB Q4HR [facility] Rx#:[id number] ceFAZolin 2 gm In Sodium 50 Chloride 0.9% 50 ml @ 100 mls/hr IVPB Q12HR [facility] Rx #:[id number] Intake, IV Titration 239.892 213.167 80.189 Amount Dexmedetomidine/0.9% NaCl 72.225 (Pmx) 400 mcg In Empty Bag 1 bag @ 0.2 MCG/KG/HR 5.555 mls/hr IV .[id number] [facility] Rx#:[id number] Diltiazem 125 mg In 67.667 13.167 Sodium Chloride 0.9% 100 ml @ 10 MG/HR 10 mls/hr IV .[id number] [facility] Rx#: [id number] propofoL 1,000 mg In 100.000 200 80.189 Empty Bag 1 bag @ 5 MCG/ KG/MIN 3.489 mls/hr IV . Q24H [facility] Rx#:[id number] Tube Feeding 60 180 50 Other 30 90 30 Output: Urine 1225 1440 80 Other: Voiding Method Indwelling Catheter Indwelling Catheter Indwelling Catheter # Bowel Movements 2 ABP, PAP, CO, CI - Last Documented Arterial Blood Pressure 25/16 - Exam Sedated, currently on propofol, sedated and calm and comfortable, secondary to mechanical ventilator , Orotracheal and orogastric tube are both in place Head exam was generally normal. There was no scleral icterus or corneal arcus. Mucous membranes were moist. HEENT examination is grossly unremarkable. Neck supple. Full range of motion. No adenopathy thyromegaly or neck vein distention. Cardiovascular examination reveals regular rhythm rate. S1-S2 normal. No S3 or S4. No discernible murmur noted. Heart rate 92 bpm. Lungs reveal scattered bilateral rhonchi. Breath sounds equal. No wheezes. Abdomen is obese. No bowel sounds. No tenderness. No masses. Extremities are intact. No cyanosis clubbing or edema. Skin is without rash or lesion. Neurologic examination is nonfocal and the patient is withdrawing to deep painful stimulation. Currently sedated with propofol. - Labs CBC & Chem 7: 10/26/21 05:10 10/26/21 05:10 Labs: Abnormal Lab Results - Last 24 Hours (Table) 10/25/21 10/25/21 10/26/21 Range/Units 08:38 18:06 00:09 WBC (3.8-10.6) k/uL RBC (4.30-5.90) m/uL Hgb (13.0-17.5) gm/dL Hct (39.0-53.0) % MCV (80.0-100.0) fL Neutrophils # (1.3-7.7) k/uL Lymphocytes # (1.0-4.8) k/uL ABG HCO3 (21-25) mmol/L ABG Total CO2 (19-24) mmol/L ABG O2 Saturation (94-97) % Sodium (137-145) mmol/L Potassium (3.5-5.1) mmol/L Chloride (98-107) mmol/L BUN (9-20) mg/dL Creatinine (0.66-1.25) mg/dL Glucose (74-99) mg/dL POC Glucose (mg/dL) 111 H 144 H 244 H (75-99) mg/dL Calcium (8.4-10.2) mg/dL Total Bilirubin (0.2-1.3) mg/dL AST (17-59) U/L Alkaline Phosphatase (38-126) U/L Total Protein (6.3-8.2) g/dL Albumin (3.5-5.0) g/dL 10/26/21 10/26/21 10/26/21 Range/Units 05:10 05:10 05:19 WBC 13.6 H (3.8-10.6) k/uL RBC 3.12 L (4.30-5.90) m/uL Hgb 9.9 L (13.0-17.5) gm/dL Hct 32.0 L (39.0-53.0) % MCV 102.6 H (80.0-100.0) fL Neutrophils # 12.1 H (1.3-7.7) k/uL Lymphocytes # 0.6 L (1.0-4.8) k/uL ABG HCO3 26 H (21-25) mmol/L ABG Total CO2 27 H (19-24) mmol/L ABG O2 Saturation 97.2 H (94-97) % Sodium 146 H (137-145) mmol/L Potassium 3.3 L (3.5-5.1) mmol/L Chloride 113 H (98-107) mmol/L BUN 118 H* (9-20) mg/dL Creatinine 2.40 H (0.66-1.25) mg/dL Glucose 208 H (74-99) mg/dL POC Glucose (mg/dL) (75-99) mg/dL Calcium 8.0 L (8.4-10.2) mg/dL Total Bilirubin 1.5 H (0.2-1.3) mg/dL AST 147 H (17-59) U/L Alkaline Phosphatase 129 H (38-126) U/L Total Protein 5.5 L (6.3-8.2) g/dL Albumin 2.3 L (3.5-5.0) g/dL 10/26/21 10/26/21 Range/Units 05:53 07:43 WBC (3.8-10.6) k/uL RBC (4.30-5.90) m/uL Hgb (13.0-17.5) gm/dL Hct (39.0-53.0) % MCV (80.0-100.0) fL Neutrophils # (1.3-7.7) k/uL Lymphocytes # (1.0-4.8) k/uL ABG HCO3 (21-25) mmol/L ABG Total CO2 (19-24) mmol/L ABG O2 Saturation (94-97) % Sodium (137-145) mmol/L Potassium (3.5-5.1) mmol/L Chloride (98-107) mmol/L BUN (9-20) mg/dL Creatinine (0.66-1.25) mg/dL Glucose (74-99) mg/dL POC Glucose (mg/dL) 194 H 177 H (75-99) mg/dL Calcium (8.4-10.2) mg/dL Total Bilirubin (0.2-1.3) mg/dL AST (17-59) U/L Alkaline Phosphatase (38-126) U/L Total Protein (6.3-8.2) g/dL Albumin (3.5-5.0) g/dL Microbiology - Last 24 Hours (Table) 10/25/21 01:49 Blood Culture - Preliminary Blood No Growth after 24 hours 10/25/21 04:45 Sputum Culture - Preliminary Sputum 10/23/21 05:50 Blood Culture Gram Stain - Preliminary Blood Blood Culture - Preliminary Presumptive Staph aureus Assessment and Plan Plan: Septic shock, MSSA, off vasopressors and the patient is currently maintaining his own blood pressure. The patient was found to have MSSA in the urine and in the blood. Note that the patient has been persistently bacteremic. Blood cultures on yesterday's since showing gram-positive cocci, currently on IV nafcillin. The patient is afebrile and hemodynamically stable. There is a increased likelihood for infective endocarditis special with a persistent bacter emia. Will need a CRYSTAL. The CRYSTAL is scheduled for today. Meanwhile, the CAT scan of the brain raised concern for septic emboli as there were abnormalities noted in the left frontal and parietal cortical and subcortical areas which could be watershed infarct versus septic pulmonary emboli. Acute hypoxic respiratory failure, currently intubated on a mechanical ventilator, chest x-ray and blood gases were noted Mental status changes, multifactorial, related to drug withdrawal was and sepsis, currently intubated on a mechanical ventilator and the patient sedated with propofol. Diabetic ketoacidosis , the patient is a component of DKA at time of admission. Currently the patient was on insulin drip and the patient was switched to long- acting insulin with Levemir 25 units twice a day and a sliding scale coverage. Delirium tremens, on propofol IRIS on CKD, creatinine is stable for now History of type 1 diabetes mellitus, currently on Levemir insulin Anion gap metabolic acidosis, recovered Elevated troponin level. History of chronic kidney disease. History of COPD from ongoing and heavy tobacco use. History of dementia. History of chronic alcohol abuse, drinking 1/5 of vodka daily. Daily crack cocaine use. Dilutional hyponatremia, recovered Plan Keep the patient ICU CAT scan of the brain was noted A follow-up CAT scan of the brain will be done within 24 hours CRYSTAL today Carotid Dopplers today Continue IV nafcillin Stop the IV Lasix stop the Lasix at least Start the patient on enteral feeding for nutritional support IV fluids at KVO long-acting insulin Levemir 25 units twice a day We'll continue to follow make further recommendations based on his progress. Critically care evaluation was done and morning and 30 minutes. The patient's critically ill. Family has been updated on his condition yesterday. Time with Patient: Greater than 30
[2021-10-26] MEDS ORDERED: ASPIRIN 81 MG PO SCH (09:00)
--- NOTE | 2021-10-26 09:16 | US ---
EXAMINATION TYPE: US carotid duplex BILAT DATE OF EXAM: 10/26/2021 COMPARISON: NONE CLINICAL HISTORY: brain CT findings. intubated ICU patient that is septic EXAM MEASUREMENTS: RIGHT: Peak Systolic Velocity (PSV) cm/sec ----- Right CCA: 92.9 ----- Right ICA: 146 ----- Right ECA: 275 ICA/CCA ratio: 1.5 RIGHT: End Diastole cm/sec ----- Right CCA: 9.7 ----- Right ICA: 15.6 ----- Right ECA: 0.0 LEFT: Peak Systolic Velocity (PSV) cm/sec ----- Left CCA: 147 ----- Left ICA: 203 ----- Left ECA: 262 ICA/CCA ratio: 1.3 LEFT: End Diastole cm/sec ----- Left CCA: 9.0 ----- Left ICA: 16.3 ----- Left ECA: 0.0 VERTEBRALS (direction of flow): Right Vertebral: Antegrade Left Vertebral: Antegrade Rhythm: Normal Challenging patient to scan, large bed, intubated. Mild homogeneous plaque with no significant steno sis seen IMPRESSION: 1. Mild homogeneous plaque with no significant hemodynamic stenosis visualized in Criteria for Assigning % of Stenosis / Diameter reduction (Estimation based on the indirect measurements of the internal carotid artery velocities (ICA PSV). 1. Normal (no stenosis)=ICA PSV < 125 cm/s: ratio < 2.0: ICA EDV<40 cm/s. 2. Less than 50% stenosis=ICA PSV < 125 cm/s: ratio < 2.0: ICA EDV<40 cm/s. 3. 50 to 69% stenosis=ICA PSV of 125 to 230 cm/s: ration 2.0 ? 4.0: ICA EDV 40-100 cm/s. 4. Greater than 70% stenosis to near occlusion= ICA PSV > 230 cm/s: ratio > 4.0: ICA EDV > 100 cm/s. 5. Near occlusion= ICA PSV velocities may be low or undetectable: variable ratio and ICA EDV. 6. Total occlusion=unable to detect flow.
--- NOTE | 2021-10-26 09:57 | P.PN ---
Subjective Patient is seen in follow-up for acute kidney injury and chronic kidney disease. Renal function improving. Nonoliguric. Intubated. On 50% FiO2. Currently off Cardizem drip. Secretions suctioned overnight. Vital signs are stable. General: Patient is confused. HEENT: No JVD. Intubated. LUNGS: Breath sounds decreased. HEART: Regular rate and rhythm. ABDOMEN: Soft, no distention. EXTREMITITES: Trace edema. Objective - Vital Signs Vital signs: Vital Signs Temp 98.3 F 10/26/21 08:00 Pulse 87 10/26/21 09:00 Resp 30 H 10/26/21 09:00 BP 100/41 10/26/21 09:00 Pulse Ox 97 10/26/21 09:00 FiO2 50 10/26/21 08:00 Intake & Output 10/25/21 10/26/21 10/26/21 18:59 06:59 18:59 Intake Total 559.892 903.167 290.189 Output Total 1225 1440 155 Balance -665.108 -536.833 135.189 Weight 114.3 kg 112.6 kg Intake: IV 230 420 130 .9 @ 20 80 120 30 Nafcillin 2 gm In 100 300 100 Dextrose 5% in Water 100 ml @ 50 mls/hr IVPB Q4HR [facility] Rx#:[id number] ceFAZolin 2 gm In Sodium 50 Chloride 0.9% 50 ml @ 100 mls/hr IVPB Q12HR [facility] Rx #:[id number] Intake, IV Titration 239.892 213.167 80.189 Amount Dexmedetomidine/0.9% NaCl 72.225 (Pmx) 400 mcg In Empty Bag 1 bag @ 0.2 MCG/KG/HR 5.555 mls/hr IV .[id number] [facility] Rx#:[id number] Diltiazem 125 mg In 67.667 13.167 Sodium Chloride 0.9% 100 ml @ 10 MG/HR 10 mls/hr IV .[id number] [facility] Rx#: [id number] propofoL 1,000 mg In 100.000 200 80.189 Empty Bag 1 bag @ 5 MCG/ KG/MIN 3.489 mls/hr IV . Q24H [facility] Rx#:[id number] Tube Feeding 60 180 50 Other 30 90 30 Output: Urine 1225 1440 155 Other: Voiding Method Indwelling Catheter Indwelling Catheter Indwelling Catheter # Bowel Movements 2 ABP, PAP, CO, CI - Last Documented Arterial Blood Pressure - Labs CBC & Chem 7: 10/26/21 05:10 10/26/21 05:10 Labs: Abnormal Lab Results - Last 24 Hours (Table) 10/25/21 10/26/21 10/26/21 Range/Units 18:06 00:09 05:10 WBC 13.6 H (3.8-10.6) k/uL RBC 3.12 L (4.30-5.90) m/uL Hgb 9.9 L (13.0-17.5) gm/dL Hct 32.0 L (39.0-53.0) % MCV 102.6 H (80.0-100.0) fL Neutrophils # 12.1 H (1.3-7.7) k/uL Lymphocytes # 0.6 L (1.0-4.8) k/uL ABG HCO3 (21-25) mmol/L ABG Total CO2 (19-24) mmol/L ABG O2 Saturation (94-97) % Sodium (137-145) mmol/L Potassium (3.5-5.1) mmol/L Chloride (98-107) mmol/L BUN (9-20) mg/dL Creatinine (0.66-1.25) mg/dL Glucose (74-99) mg/dL POC Glucose (mg/dL) 144 H 244 H (75-99) mg/dL Calcium (8.4-10.2) mg/dL Total Bilirubin (0.2-1.3) mg/dL AST (17-59) U/L Alkaline Phosphatase (38-126) U/L Total Protein (6.3-8.2) g/dL Albumin (3.5-5.0) g/dL 10/26/21 10/26/21 10/26/21 Range/Units 05:10 05:19 05:53 WBC (3.8-10.6) k/uL RBC (4.30-5.90) m/uL Hgb (13.0-17.5) gm/dL Hct (39.0-53.0) % MCV (80.0-100.0) fL Neutrophils # (1.3-7.7) k/uL Lymphocytes # (1.0-4.8) k/uL ABG HCO3 26 H (21-25) mmol/L ABG Total CO2 27 H (19-24) mmol/L ABG O2 Saturation 97.2 H (94-97) % Sodium 146 H (137-145) mmol/L Potassium 3.3 L (3.5-5.1) mmol/L Chloride 113 H (98-107) mmol/L BUN 118 H* (9-20) mg/dL Creatinine 2.40 H (0.66-1.25) mg/dL Glucose 208 H (74-99) mg/dL POC Glucose (mg/dL) 194 H (75-99) mg/dL Calcium 8.0 L (8.4-10.2) mg/dL Total Bilirubin 1.5 H (0.2-1.3) mg/dL AST 147 H (17-59) U/L Alkaline Phosphatase 129 H (38-126) U/L Total Protein 5.5 L (6.3-8.2) g/dL Albumin 2.3 L (3.5-5.0) g/dL 10/26/21 Range/Units 07:43 WBC (3.8-10.6) k/uL RBC (4.30-5.90) m/uL Hgb (13.0-17.5) gm/dL Hct (39.0-53.0) % MCV (80.0-100.0) fL Neutrophils # (1.3-7.7) k/uL Lymphocytes # (1.0-4.8) k/uL ABG HCO3 (21-25) mmol/L ABG Total CO2 (19-24) mmol/L ABG O2 Saturation (94-97) % Sodium (137-145) mmol/L Potassium (3.5-5.1) mmol/L Chloride (98-107) mmol/L BUN (9-20) mg/dL Creatinine (0.66-1.25) mg/dL Glucose (74-99) mg/dL POC Glucose (mg/dL) 177 H (75-99) mg/dL Calcium (8.4-10.2) mg/dL Total Bilirubin (0.2-1.3) mg/dL AST (17-59) U/L Alkaline Phosphatase (38-126) U/L Total Protein (6.3-8.2) g/dL Albumin (3.5-5.0) g/dL Microbiology - Last 24 Hours (Table) 10/25/21 23:40 Sputum Culture - Preliminary Sputum 10/25/21 04:45 Gram Stain - Preliminary Sputum Sputum Culture - Preliminary 10/25/21 01:49 Blood Culture - Preliminary Blood No Growth after 24 hours 10/23/21 05:50 Blood Culture Gram Stain - Preliminary Blood Blood Culture - Preliminary Presumptive Staph aureus Assessment and Plan Plan: Assessment: 1. Acute kidney injury secondary to ATN secondary to septic shock. Creatinine was 2.59 on admission and peaked at 3.56 this admission - 2.4 today. Nonoliguric. No hydronephrosis noted on kidney ultrasound. Elevated BUN secondary to hypercatabolic state. Not on steroids. No evidence of GI bleed. 2. Septic shock secondary to staph aureus UTI and bacteremia on antibiotics. Infectious disease following. Off Levophed. 3. Chronic kidney disease stage IIIA with baseline creatinine in the range of 1.5-1.7 secondary to diabetic kidney disease. 4. Metabolic acidosis secondary to acute kidney injury and IV fluids. Status post bicarb drip. Improved. 5. Hypernatremia from lack of oral water intake. 6. Hypokalemia from poor intake. 7. Diabetes mellitus. Serum acetone positive. Status post insulin drip. 8. Volume overload. 9. A. fib with RVR. Currently off Cardizem drip. Plan: Hold Lasix today. Add free water flushes 300 mL every 6 hours with tube feeds. Avoid nephrotoxins. Continue to monitor renal function and urine output. Preserved ejection fraction with moderate LVH noted on echocardiogram. Phosphorus 3.5 dated 10/24/21. Replace potassium. Wean FiO2.
[2021-10-26] MEDS ORDERED: POTASSIUM BICARBONATE/CIT AC 20 MEQ TABLET.EFF PO ONE (10:16)
[2021-10-26 11:25] LABS: Glucose,Whole Blood 187 mg/dL (75-99)
--- NOTE | 2021-10-26 12:01 | P.PN ---
Subjective Progress Note Date: 10/26/21 I am seeing the patient for the first time during this admission. Please refer to Dr. Rdz's notes for further details. CT head was ordered by primary team yesterday for altered mental status. It is reported as interval development of left frontal and left parietal cortical and subcortical infarct possibly representing watershed infarct however underlying embolic etiology cannot be excluded. I personally reviewed the CT of the head and I felt more embolic. And I agree was the different compared to the 10/20/2021. As a result of the CT ICU team asked her team to continue to follow up with the patient. Patient is septic during this hospital visit and the blood culture has been staph aureus. Patient had a transesophageal echocardiogram today and per the nurse she was notified that patient has presentation that was seen. Patient continues to have episodes of hypotensive as low as 80's/40's. Carotid duplex is reported as mild homogeneous plaque with no significant hemodynamic stenosis visualized Objective - Vital Signs Vital signs: Vital Signs Temp 98.3 F 10/26/21 08:00 Pulse 88 10/26/21 10:00 Resp 26 H 10/26/21 10:00 BP 98/44 10/26/21 10:00 Pulse Ox 95 10/26/21 10:00 FiO2 50 10/26/21 11:08 Intake & Output 10/25/21 10/26/21 10/26/21 18:59 06:59 18:59 Intake Total 559.892 903.167 330.189 Output Total 1225 1440 205 Balance -665.108 -536.833 125.189 Weight 114.3 kg 112.6 kg 112.6 kg Intake: IV 230 420 140 .9 @ 20 80 120 40 Nafcillin 2 gm In 100 300 100 Dextrose 5% in Water 100 ml @ 50 mls/hr IVPB Q4HR [facility] Rx#:[id number] ceFAZolin 2 gm In Sodium 50 Chloride 0.9% 50 ml @ 100 mls/hr IVPB Q12HR [facility] Rx #:[id number] Intake, IV Titration 239.892 213.167 80.189 Amount Dexmedetomidine/0.9% NaCl 72.225 (Pmx) 400 mcg In Empty Bag 1 bag @ 0.2 MCG/KG/HR 5.555 mls/hr IV .Q18H1M [facility] Rx#:[id number] Diltiazem 125 mg In 67.667 13.167 Sodium Chloride 0.9% 100 ml @ 10 MG/HR 10 mls/hr IV .[id number] [facility] Rx#: [id number] propofoL 1,000 mg In 100.000 200 80.189 Empty Bag 1 bag @ 5 MCG/ KG/MIN 3.489 mls/hr IV . Q24H [facility] Rx#:[id number] Tube Feeding 60 180 80 Other 30 90 30 Output: Urine 1225 1440 205 Other: Voiding Method Indwelling Catheter Indwelling Catheter Indwelling Catheter # Bowel Movements 2 ABP, PAP, CO, CI - Last Documented Arterial Blood Pressure 25/16 - Exam GENERAL: The patient is lying in bed and does not seem in acute distress. LUNG: Intubated on ventilator. NEUROLOGICAL: Limited. Is currently on IV Propofol 25mcg/kg/min. Higher mental function: The patient is comatose. GCS 3 ( E1, VT1, M1). No verbalizing or following commands. Cranial nerves: I had to manually open his eyes. Primary gaze is midline. Pupils are 2mm and non-reactive bilaterally. Has bilateral corneal reflex. Grimaces face to pain. Has positive weak gag reflex. Is breathing over the vent. Motor: The strength is unable to assess but grimaces to face with painful stimuli of uppers. No spontaneous movement. Sensation: grimaces to face with painful stimuli of uppers SOME OF THE WORK-UP DURING THIS HOSPITAL VISIT: CT head was ordered by primary team yesterday for altered mental status. It is reported as interval development of left frontal and left parietal cortical and subcortical infarct possibly representing watershed infarct however underlying embolic etiology cannot be excluded. I personally reviewed the CT of the head and I felt more embolic. And I agree was the different compared to the 10/20/2021. Patient had a transesophageal echocardiogram today and per the nurse she was notified that patient has presentation that was seen. Carotid duplex is reported as mild homogeneous plaque with no significant hemodynamic stenosis visualized - Labs CBC & Chem 7: 10/26/21 05:10 10/26/21 05:10 Labs: Abnormal Lab Results - Last 24 Hours (Table) 10/25/21 10/26/21 10/26/21 Range/Units 18:06 00:09 05:10 WBC 13.6 H (3.8-10.6) k/uL RBC 3.12 L (4.30-5.90) m/uL Hgb 9.9 L (13.0-17.5) gm/dL Hct 32.0 L (39.0-53.0) % MCV 102.6 H (80.0-100.0) fL Neutrophils # 12.1 H (1.3-7.7) k/uL Lymphocytes # 0.6 L (1.0-4.8) k/uL ABG HCO3 (21-25) mmol/L ABG Total CO2 (19-24) mmol/L ABG O2 Saturation (94-97) % Sodium (137-145) mmol/L Potassium (3.5-5.1) mmol/L Chloride (98-107) mmol/L BUN (9-20) mg/dL Creatinine (0.66-1.25) mg/dL Glucose (74-99) mg/dL POC Glucose (mg/dL) 144 H 244 H (75-99) mg/dL Calcium (8.4-10.2) mg/dL Total Bilirubin (0.2-1.3) mg/dL AST (17-59) U/L Alkaline Phosphatase (38-126) U/L Total Protein (6.3-8.2) g/dL Albumin (3.5-5.0) g/dL 10/26/21 10/26/21/01/09 Range/Units 05:10 05:19 05:53 WBC (3.8-10.6) k/uL RBC (4.30-5.90) m/uL Hgb (13.0-17.5) gm/dL Hct (39.0-53.0) % MCV (80.0-100.0) fL Neutrophils # (1.3-7.7) k/uL Lymphocytes # (1.0-4.8) k/uL ABG HCO3 26 H (21-25) mmol/L ABG Total CO2 27 H (19-24) mmol/L ABG O2 Saturation 97.2 H (94-97) % Sodium 146 H (137-145) mmol/L Potassium 3.3 L (3.5-5.1) mmol/L Chloride 113 H (98-107) mmol/L BUN 118 H* (9-20) mg/dL Creatinine 2.40 H (0.66-1.25) mg/dL Glucose 208 H (74-99) mg/dL POC Glucose (mg/dL) 194 H (75-99) mg/dL Calcium 8.0 L (8.4-10.2) mg/dL Total Bilirubin 1.5 H (0.2-1.3) mg/dL AST 147 H (17-59) U/L Alkaline Phosphatase 129 H (38-126) U/L Total Protein 5.5 L (6.3-8.2) g/dL Albumin 2.3 L (3.5-5.0) g/dL 10/26/21 10/26/21 Range/Units 07:43 11:23 WBC (3.8-10.6) k/uL RBC (4.30-5.90) m/uL Hgb (13.0-17.5) gm/dL Hct (39.0-53.0) % MCV (80.0-100.0) fL Neutrophils # (1.3-7.7) k/uL Lymphocytes # (1.0-4.8) k/uL ABG HCO3 (21-25) mmol/L ABG Total CO2 (19-24) mmol/L ABG O2 Saturation (94-97) % Sodium (137-145) mmol/L Potassium (3.5-5.1) mmol/L Chloride (98-107) mmol/L BUN (9-20) mg/dL Creatinine (0.66-1.25) mg/dL Glucose (74-99) mg/dL POC Glucose (mg/dL) 177 H 187 H (75-99) mg/dL Calcium (8.4-10.2) mg/dL Total Bilirubin (0.2-1.3) mg/dL AST (17-59) U/L Alkaline Phosphatase (38-126) U/L Total Protein (6.3-8.2) g/dL Albumin (3.5-5.0) g/dL Microbiology - Last 24 Hours (Table) 10/25/21 23:40 Sputum Culture - Preliminary Sputum 10/25/21 04:45 Gram Stain - Preliminary Sputum Sputum Culture - Preliminary 10/25/21 01:49 Blood Culture - Preliminary Blood No Growth after 24 hours 10/23/21 05:50 Blood Culture Gram Stain - Preliminary Blood Blood Culture - Preliminary Presumptive Staph aureus Assessment and Plan Assessment: Acute to subacute ischemic stroke over the left fronto/parietal seems likely due to septic emboli Septic encephalopathy and component of metabolic encephalopathy. Also some medication use on IV Propofol Septic shock, MSSA Acute hypoxic respiratory failure intubated on ventilator Hypotensive episodes due to septic shock Reported history of dementia Type 1 diabetes Chronic kidney insufficiency History of COPD Cocaine abuse Chronic alcohol use Tobacco use Plan: I stopped aspirin 81 and Lipitor 20 mg that was started by me since the source is a septic emboli and management is IV antibiotic. Recommend avoiding any anticoagulation because of hemorrhagic emergency and the underlying management is IV antibiotic. Recommend CT angiography of the head to rule out any septic emboli. Currently cannot obtain because of kidney insufficiency. A repeat CT of the head is ordered by the ICU team and is pending. Recommend repeating a CT of the head in 4 days from now to assess if there is any change. Ordered EEG because of continued altered mental status. I'll not start the patient on an antiepileptic drug unless there is epileptiform discharges or seizure on EEG. I'll defer modification of antibiotic to the ID team currently the patient is on nafcillin Cardiology is on board Nephrology is on board We'll defer the rest of the medical measure the primary team Condition: Critical. The plan is discussed with the patient's (in-person) and his nurse. Ji Hernandez M.D. Neuro-Hospitalist Time with Patient: Less than 30
--- NOTE | 2021-10-26 12:02 | P.PN ---
Subjective Progress Note Date: 10/26/21 HISTORY OF PRESENT ILLNESS This is a 55-year-old male patient of Dr. Fischer with past medical history of diabetes mellitus on insulin pump, hypertension, seizure disorder, gastroesopha geal reflux disease, generalized anxiety disorder, tobacco use and dependence, alcohol abuse suspected. Patient is able to state that he has not felt well for 3 days and insulin pump is not in place. He is a poor historian and unable to give accurate information. Patient's is on her way to the hospital. He was brought in to the emergency center by EMS for generalized weakness. Patient was too weak apparently to get off the floor after a fall. Patient was found to be febrile at 101.6, heart rate 134, blood pressure 120/98, respiratory rate 36, pulse ox 99% on 2 L. WBC 9.8, hemoglobin 11.7, platelet count 140. Sodium 124, potassium 3.7, chloride 92, CO2 19, BUN 71 and creatinine 2.59. Blood sugar 331 and subsequent blood glucose 484 and 547. Lactic acid 1.8. Calcium 8.3. Magnesium 1.6. Troponin is 0.129. Albumin 3.4. AST 282, ALT 77, alkaline phosphatase 85. Influenza a not detected, influenza B not detected, RSV not detected, SARS Covid to not detected. Chest x-ray revealed no acute cardiopulmonary process. CAT scan of the brain revealed no acute process. Encephalomalacia of the right temporal lobe similar to 2018. 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 Patient started on empiric antibiotics with Zosyn, patient started on CIWA protocol. He is currently on bicarbonate drip with 1 amp 100 mL per hour. 10/22: Patient is in bed in moderate distress in the ICU, at the bedside. Per the the patient drinks approximately applied to the fifth daily. Patient is tachycardic/ tachypenic, urinary output 60 ML's per hour and indwelling catheter. Blood culture is positive for staph aureus. Blood gases on 32% show pO2 of 54, pCO2 34, and a pH is 7.42. He is currently high flow nasal cannula. At 10 L. He is also getting saline at 75 mL an hour, insulin at 9 units an hour, and norepinephrine at 2 mcg/m. His current antibiotics include vancomycin, daptomycin, and Zosyn. Currently white count 9.1, hemoglobin 10.1, hematocrit 31.1, and platelet count 99,000. Sodium 131, potassium 2.9, chl orides 99, CO2 22, BUN 73, and creatinine 2.89. Troponin levels were 0.129, and 0.162. Albumin is 2.4. 10/23: Patient is sedated at this time. Patient febrile with a temperature 100.9, heart rate 112, respirations 29, blood pressure 121/97, 98% on high flow nasal cannula 10 L. To Cecilia 11.5, hemoglobin 11.4, sodium 135, potassium 4.2, BUN 86, creatinine 3.56. Urine output 50 ML's per hour per indwelling catheter. He still getting saline at 75 ML's an hour, continue with IV antibiotics. Insulin drip until tomorrow. 10/24: Patient remains on low-dose sedation with Precedex and also receiving Ativan as needed. He is on insulin drip and on IV fluids at 75 mL/h. Cardiology has signed off his case. We will plan to transition off insulin drip to Levemir 25 units twice daily and 10 units of NovoLog every 6 hours along with NovoLog scale. WBC is 10.2, hemoglobin 11, platelet count 193. Sodium 142, potassium 3.6, chloride 109, CO2 18, BUN 101 and creatinine 2.85. Blood sugars are running between 130s - 187. ALT 112. Patient is status post IV Lasix 40 mg times once today potassium replaced. Echocardiogram reveals EF of 55-60% with moderate left ventricular hypertrophy, mild aortic stenosis with mean gradient of 13 mmHg, mild aortic regurgitation, mild tricuspid regurgitation, mild mitral regurgitation. 10/25: Patient remains in the intensive care unit. Patient was intubated by GABRIEL early a.m. due to tachypnea and lethargy. He also had tachycardia at that time and started on Cardizem drip per cardiology. He is currently on mechanical ventilation with tidal volume 400, FiO2 50 and PEEP of 5. He is on propofol and IV fluids only. He is continued on per Dr. Ashford. CAT scan of the brain, CRYSTAL, chest x-rays, blood cultures ordered. Temperature max 100.5, heart rate 113, blood pressure 97/55, pulse ox 95%. WBC 13.1, hemoglobin 9.7, platelet count 232. BUN 106, creatinine 2.6. Her blood glucose running between 90 and 115. All blood and urine cultures are showing staph aureus, MSSA. Chest x-ray this morning reveals pulmonary vascular congestion and small pleural effusions not significantly different from yesterday. 10/26: Patient remains in the ICU, intubated and on mechanical ventilation with tidal volume 400, FIO2 50% and PEEP of 5. Patient is on nafcillin per Dr Ashford. Patient has been afebrile greater than 24 hours, heart rate 88, respiratory rate 26, blood pressure 98/44, pulse ox 95%. WBC 13.6, hemoglobin 9.9, platelet count 255. Sodium 146, potassium 3.3, chloride 113, CO2 26, BUN 118, creatinine 2.4. Her blood glucose running between 144 and 244. Calcium 8, total bilirubin 1.5, AST 147, ALT 17, alkaline phosphatase 129. CT brain revealed interval development of left frontal and left parietal cortical and subcortical infarcts possibly representing watershed infarcts however embolic etiology cannot be excluded. Chest x-ray reveals some mild atelextasis left lung base. Improved aeration of lungs overall. Carotid US revealed mild homogeneous plaque w no significant hemodynamic stenosis. REVIEW OF SYSTEMS Unable to obtain due to patient's mental status/intubation. PHYSICAL EXAMINATION Gen: This is a morbidly obese 55-year-old male. Found in ICU bed newly intubated and on mechanical ventilation. HEENT: Head is atraumatic, normocephalic. Pupils equal, round. Sclerae is anicteric. NECK: Supple. No JVD. No lymphadenopathy. No thyromegaly. LUNGS: Diminished with a few scattered rhonchi. No intercostal retractions. HEART: Regular rate and rhythm. No murmur. ABDOMEN: Soft. Bowel sounds are present. No masses. No tenderness. EXTREMITIES: No pedal edema. No calf tenderness. SKIN: No skin lesions noted, no ulcers, no wounds, no areas of erythema. NEUROLOGICAL: Patient is sedated ASSESSMENT AND PLAN 1. Sepsis , septic shock and MSSA bacteremia. Consult with Dr. Ashford appreciated. Patient is currently on nafcillin IV piggyback every 4 hours, continue to monitor blood cultures, CRYSTAL scheduled. 2. Metabolic encephalopathy secondary to sepsis, DTs, DKA, acute kidney injury. Consult with neurology appreciated. 3. Delirium tremors. Patient started on CIWA protocol with Ativan, thiamine, obtain alcohol level. 4. DKA in patient with diabetes mellitus type 1 insulin requiring. Patient is not on insulin pump. Transition to insulin drip to Levemir 25 units twice daily, NovoLog 10 units every 6 hours and NovoLog scale . 5. Acute kidney injury with chronic kidney disease stage III. Consult with nephrology appreciated. Nephrology is added IV Lasix 40 mg once today, 6. Anion gap metabolic acidosis secondary to acute kidney injury and DKA. Status post sodium bicarb. 7. Tachycardia most likely secondary to sepsis. Cardiology consult. 8. Elevated troponins, acute coronary syndrome ruled out. Cardiology consult appreciated and have signed off. 9. Thrombocytopenia most likely secondary to sepsis. Continue to monitor. 10. Hyponatremia. Nephrology following. 11. Acute hypoxic respiratory failure requiring intubation and mechanical ventilation, managed by pulmonary medicine. 12. Hypertension. Hold lisinopril 20 mg daily. 13. Dementia. Continue Aricept 10 mg daily. 14. Hyperlipidemia. Continue Lipitor 40 mg daily. 15. Gastroesophageal reflux disease and GI prophylaxis. Protonix 40 mg IV daily. 16. History of acute respiratory failure requiring intubation secondary to poly substance abuse which included narcotics and alcohol. 17. History of liver cirrhosis secondary to alcohol abuse. 18. History of Seizure disorder. Patient does not appear to be on Keppra anymore. 19. Generalized anxiety disorder and recurrent depression. 20. Daily crack cocaine use. 21. Left parietal cortical and subcortical infarcts possibly representing watershed infarcts however embolic etiology cannot be excluded. CRYSTAL today. Prognosis poor. DISCHARGE PLAN To be determined. Impression and plan of care have been directed as dictated by the signing physician. Elizabeth Spicer nurse practitioner acting as scribe for signing physician. Objective - Vital Signs Vital signs: Vital Signs Temp 98.3 F 10/26/21 08:00 Pulse 88 10/26/21 10:00 Resp 26 H 10/26/21 10:00 BP 98/44 10/26/21 10:00 Pulse Ox 95 10/26/21 10:00 FiO2 50 10/26/21 11:08 Intake & Output 10/25/21 10/26/21 10/26/21 18:59 06:59 18:59 Intake Total 559.892 903.167 330.189 Output Total 1225 1440 205 Balance -665.108 -536.833 125.189 Weight 114.3 kg 112.6 kg 112.6 kg Intake: IV 230 420 140 .9 @ 20 80 120 40 Nafcillin 2 gm In 100 300 100 Dextrose 5% in Water 100 ml @ 50 mls/hr IVPB Q4HR [facility] Rx#:[id number] ceFAZolin 2 gm In Sodium 50 Chloride 0.9% 50 ml @ 100 mls/hr IVPB Q12HR [facility] Rx #:[id number] Intake, IV Titration 239.892 213.167 80.189 Amount Dexmedetomidine/0.9% NaCl 72.225 (Pmx) 400 mcg In Empty Bag 1 bag @ 0.2 MCG/KG/HR 5.555 mls/hr IV .Q18H1M [facility] Rx#:[id number] Diltiazem 125 mg In 67.667 13.167 Sodium Chloride 0.9% 100 ml @ 10 MG/HR 10 mls/hr IV .[id number] [facility] Rx#: [id number] propofoL 1,000 mg In 100.000 200 80.189 Empty Bag 1 bag @ 5 MCG/ KG/MIN 3.489 mls/hr IV . Q24H [facility] Rx#:[id number] Tube Feeding 60 180 80 Other 30 90 30 Output: Urine 1225 1440 205 Other: Voiding Method Indwelling Catheter Indwelling Catheter Indwelling Catheter # Bowel Movements 2 ABP, PAP, CO, CI - Last Documented Arterial Blood Pressure 25/16 - Labs CBC & Chem 7: 10/26/21 05:10 10/26/21 05:10 Labs: Abnormal Lab Results - Last 24 Hours (Table) 10/25/21 10/26/21 10/26/21 Range/Units 18:06 00:09 05:10 WBC 13.6 H (3.8-10.6) k/uL RBC 3.12 L (4.30-5.90) m/uL Hgb 9.9 L (13.0-17.5) gm/dL Hct 32.0 L (39.0-53.0) % MCV 102.6 H (80.0-100.0) fL Neutrophils # 12.1 H (1.3-7.7) k/uL Lymphocytes # 0.6 L (1.0-4.8) k/uL ABG HCO3 (21-25) mmol/L ABG Total CO2 (19-24) mmol/L ABG O2 Saturation (94-97) % Sodium (137-145) mmol/L Potassium (3.5-5.1) mmol/L Chloride (98-107) mmol/L BUN (9-20) mg/dL Creatinine (0.66-1.25) mg/dL Glucose (74-99) mg/dL POC Glucose (mg/dL) 144 H 244 H (75-99) mg/dL Calcium (8.4-10.2) mg/dL Total Bilirubin (0.2-1.3) mg/dL AST (17-59) U/L Alkaline Phosphatase (38-126) U/L Total Protein (6.3-8.2) g/dL Albumin (3.5-5.0) g/dL 10/26/21 10/26/21 10/26/21 Range/Units 05:10 05:19 05:53 WBC (3.8-10.6) k/uL RBC (4.30-5.90) m/uL Hgb (13.0-17.5) gm/dL Hct (39.0-53.0) % MCV (80.0-100.0) fL Neutrophils # (1.3-7.7) k/uL Lymphocytes # (1.0-4.8) k/uL ABG HCO3 26 H (21-25) mmol/L ABG Total CO2 27 H (19-24) mmol/L ABG O2 Saturation 97.2 H (94-97) % Sodium 146 H (137-145) mmol/L Potassium 3.3 L (3.5-5.1) mmol/L Chloride 113 H (98-107) mmol/L BUN 118 H* (9-20) mg/dL Creatinine 2.40 H (0.66-1.25) mg/dL Glucose 208 H (74-99) mg/dL POC Glucose (mg/dL) 194 H (75-99) mg/dL Calcium 8.0 L (8.4-10.2) mg/dL Total Bilirubin 1.5 H (0.2-1.3) mg/dL AST 147 H (17-59) U/L Alkaline Phosphatase 129 H (38-126) U/L Total Protein 5.5 L (6.3-8.2) g/dL Albumin 2.3 L (3.5-5.0) g/dL 10/26/21 10/26/21 Range/Units 07:43 11:23 WBC (3.8-10.6) k/uL RBC (4.30-5.90) m/uL Hgb (13.0-17.5) gm/dL Hct (39.0-53.0) % MCV (80.0-100.0) fL Neutrophils # (1.3-7.7) k/uL Lymphocytes # (1.0-4.8) k/uL ABG HCO3 (21-25) mmol/L ABG Total CO2 (19-24) mmol/L ABG O2 Saturation (94-97) % Sodium (137-145) mmol/L Potassium (3.5-5.1) mmol/L Chloride (98-107) mmol/L BUN (9-20) mg/dL Creatinine (0.66-1.25) mg/dL Glucose (74-99) mg/dL POC Glucose (mg/dL) 177 H 187 H (75-99) mg/dL Calcium (8.4-10.2) mg/dL Total Bilirubin (0.2-1.3) mg/dL AST (17-59) U/L Alkaline Phosphatase (38-126) U/L Total Protein (6.3-8.2) g/dL Albumin (3.5-5.0) g/dL Microbiology - Last 24 Hours (Table) 10/25/21 23:40 Sputum Culture - Preliminary Sputum 10/25/21 04:45 Gram Stain - Preliminary Sputum Sputum Culture - Preliminary 10/25/21 01:49 Blood Culture - Preliminary Blood No Growth after 24 hours 10/23/21 05:50 Blood Culture Gram Stain - Preliminary Blood Blood Culture - Preliminary Presumptive Staph aureus
--- NOTE | 2021-10-26 12:22 | ECHOT ---
TRANSESOPHAGEAL ECHOCARDIOGRAM INDICATION: Methicillin-sensitive Staph aureus septicemia. Rule out infective endocarditis. PROCEDURE NOTE: After obtaining informed consent, transesophageal echocardiogram was performed in the intensive care unit in a patient who is intubated and on vent. Patient is on propofol for sedation. Total sedation procedure time was 10 minutes. Patient tolerated the procedure well without any obvious immediate complications. FINDINGS: 1. Mitral valve: There is a large 1 cm vegetation attached to the atrial surface of the posterior mitral leaflet, and a smaller-sized vegetation is also noted on the anterior mitral leaflet. Aortic valve seems free of vegetation. I did not notice any vegetations on the tricuspid valve. 2. There is mild mitral regurgitation. There is trace aortic regurgitation. There is acceleration of the color flow in the left ventricular outflow tract, probably because of the hyperdynamic LV. 3. Left atrium appears mildly enlarged. Right atrium and right ventricle appear prominent. Left ventricle has normal size and systolic function. 4. Aortic root appears normal. 5. There is evidence of pbaz-[id number] shunt by color-flow Doppler and [id number] shunt by agitated saline contrast study. There is a small atrial septal defect noted within the interatrial septum. CONCLUSIONS: 1. Large vegetation involving the posterior mitral leaflet with a smaller vegetation involving the anterior mitral leaflet with mild mitral regurgitation. 2. Left ventricular systolic function is normal. 3. There is a small atrial septal defect noted with bidirectional flow. MMODL / IJN: [id number] /
--- NOTE | 2021-10-26 13:16 | EEG ---
ELECTROENCEPHALOGRAM REPORT DATE OF SERVICE: 10/26/2021 CLINICAL HISTORY: This is a 55-year-old gentleman with septic shock, who continues to have altered mental status. The video EEG is obtained to evaluate for seizure epileptiform activity. RELEVANT MEDICATIONS: IV propofol. EEG TYPE: A routine 21 channel EEG is performed with video using the 10/20 electrode system. DESCRIPTION: The patient is intubated on a ventilator. The background consists of low to moderate voltage of 6-7 hertz activity intermixed with delta and at times the background consists of diffuse nonrhythmic delta activity. Otherwise there is no physiological stage 2 sleep architecture. There is no focal slowing. Interictal and ictal is none. Photic stimulation, hyperventilation is not performed. CLINICAL INTERPRETATION: This is an abnormal routine EEG. The background slowing is suggestive of moderate encephalopathy. Otherwise, there is no focal slowing, epileptiform discharge or seizure on the EEG. Clinical correlation is recommended. LITZY / ANJELN: [id number] /
[2021-10-26 16:35] LABS: Chol/HDL Ratio 12.21 Ratio; LDL Cholesterol,Calculated 25.7 mg/dL (0.0-131.0)
--- NOTE | 2021-10-26 16:43 | CT ---
EXAMINATION TYPE: CT brain wo con DATE OF EXAM: 10/26/2021 COMPARISON: 10/25/2021 HISTORY: ams CT DLP: 1143.4 mGycm Automated exposure control for dose reduction was used. There is some hypodensity in the anterior right temporal lobe consistent with an old infarct. There i s cerebral atrophy. There is no mass effect or midline shift. There is also a wedge-shaped 3 x 2 cm a bladimir of hypodensity left posterior occipital lobe consistent with old infarct. There is a small 2 x 1 cm old cortical infarct left parietal lobe. There is no mass effect. No midline shift. No sign of int racranial hemorrhage. Calvarium is intact. IMPRESSION: Old anterior right temporal and left posterior occipital lobe and left parietal infarcts. No acute in tracranial abnormality. Cerebral atrophy. No change compared to yesterday.
[2021-10-26 17:26] LABS: Glucose,Whole Blood 130 mg/dL (75-99)
[2021-10-26] MEDS ORDERED: ATORVASTATIN 20 MG TAB PO SCH (21:00)
--- NOTE | 2021-10-26 22:32 | P.PN ---
Subjective Progress Note Date: 10/26/21 Principal diagnosis: Sepsis and bacteremia Patient is a 55-year-old male with a past medical history significant for insulin-dependent diabetes mellitus presented to hospital with weakness and mental status changes and elevated blood sugar, patient did have evidence of MSSA bacteremia. Patient did have a CRYSTAL completed on 10/26/2021 with evidence of mitral valve endocarditis On today's evaluation that is 10/26/2021, patient is afebrile this morning, the patient is hemodynamically stable not requiring any pressor support, the patient remains to be intubated and FiO2 is stable, and no significant purulent secretion through the ET reported by the nursing staff and no diarrhea Objective - Vital Signs Vital signs: Vital Signs Temp 98.6 F 10/26/21 12:00 Pulse 93 10/26/21 14:00 Resp 29 H 10/26/21 14:00 BP 120/62 10/26/21 14:00 Pulse Ox 98 10/26/21 14:00 FiO2 50 10/26/21 12:00 Intake & Output 10/25/21 10/26/21 10/26/21 18:59 06:59 18:59 Intake Total 559.892 903.167 880.000 Output Total 1225 1440 555 Balance -665.108 -536.833 325.000 Weight 114.3 kg 112.6 kg 112.6 kg Intake: IV 230 420 280 .9 @ 20 80 120 80 Nafcillin 2 gm In 100 300 200 Dextrose 5% in Water 100 ml @ 50 mls/hr IVPB Q4HR [facility] Rx#:[id number] ceFAZolin 2 gm In Sodium 50 Chloride 0.9% 50 ml @ 100 mls/hr IVPB Q12HR [facility] Rx #:[id number] Intake, IV Titration 239.892 213.167 100.000 Amount Dexmedetomidine/0.9% NaCl 72.225 (Pmx) 400 mcg In Empty Bag 1 bag @ 0.2 MCG/KG/HR 5.555 mls/hr IV .[id number] [facility] Rx#:[id number] Diltiazem 125 mg In 67.667 13.167 Sodium Chloride 0.9% 100 ml @ 10 MG/HR 10 mls/hr IV .[id number] [facility] Rx#: [id number] propofoL 1,000 mg In 100.000 200 100.000 Empty Bag 1 bag @ 5 MCG/ KG/MIN 3.489 mls/hr IV . Q24H [facility] Rx#:[id number] Tube Feeding 60 180 170 Other 30 90 330 Output: Urine 1225 1440 555 Other: Voiding Method Indwelling Catheter Indwelling Catheter Indwelling Catheter # Bowel Movements 2 ABP, PAP, CO, CI - Last Documented Arterial Blood Pressure 25/16 - Exam GENERAL DESCRIPTION: Middle-aged male intubated on the vent RESPIRATORY SYSTEM: Unlabored breathing , decreased breath sounds at bases HEART: S1 S2 regular rate and rhythm , ABDOMEN: Soft , no tenderness EXTREMITIES: No edema feet - Labs CBC & Chem 7: 10/26/21 05:10 10/26/21 05:10 Labs: Abnormal Lab Results - Last 24 Hours (Table) 10/25/21 10/26/21 10/26/21 Range/Units 18:06 00:09 05:10 WBC 13.6 H (3.8-10.6) k/uL RBC 3.12 L (4.30-5.90) m/uL Hgb 9.9 L (13.0-17.5) gm/dL Hct 32.0 L (39.0-53.0) % MCV 102.6 H (80.0-100.0) fL Neutrophils # 12.1 H (1.3-7.7) k/uL Lymphocytes # 0.6 L (1.0-4.8) k/uL ABG HCO3 (21-25) mmol/L ABG Total CO2 (19-24) mmol/L ABG O2 Saturation (94-97) % Sodium (137-145) mmol/L Potassium (3.5-5.1) mmol/L Chloride (98-107) mmol/L BUN (9-20) mg/dL Creatinine (0.66-1.25) mg/dL Glucose (74-99) mg/dL POC Glucose (mg/dL) 144 H 244 H (75-99) mg/dL Calcium (8.4-10.2) mg/dL Total Bilirubin (0.2-1.3) mg/dL AST (17-59) U/L Alkaline Phosphatase (38-126) U/L Total Protein (6.3-8.2) g/dL Albumin (3.5-5.0) g/dL 10/26/21 10/26/21 10/26/21 Range/Units 05:10 05:19 05:53 WBC (3.8-10.6) k/uL RBC (4.30-5.90) m/uL Hgb (13.0-17.5) gm/dL Hct (39.0-53.0) % MCV (80.0-100.0) fL Neutrophils # (1.3-7.7) k/uL Lymphocytes # (1.0-4.8) k/uL ABG HCO3 26 H (21-25) mmol/L ABG Total CO2 27 H (19-24) mmol/L ABG O2 Saturation 97.2 H (94-97) % Sodium 146 H (137-145) mmol/L Potassium 3.3 L (3.5-5.1) mmol/L Chloride 113 H (98-107) mmol/L BUN 118 H* (9-20) mg/dL Creatinine 2.40 H (0.66-1.25) mg/dL Glucose 208 H (74-99) mg/dL POC Glucose (mg/dL) 194 H (75-99) mg/dL Calcium 8.0 L (8.4-10.2) mg/dL Total Bilirubin 1.5 H (0.2-1.3) mg/dL AST 147 H (17-59) U/L Alkaline Phosphatase 129 H (38-126) U/L Total Protein 5.5 L (6.3-8.2) g/dL Albumin 2.3 L (3.5-5.0) g/dL 10/26/21 10/26/21 Range/Units 07:43 11:23 WBC (3.8-10.6) k/uL RBC (4.30-5.90) m/uL Hgb (13.0-17.5) gm/dL Hct (39.0-53.0) % MCV (80.0-100.0) fL Neutrophils # (1.3-7.7) k/uL Lymphocytes # (1.0-4.8) k/uL ABG HCO3 (21-25) mmol/L ABG Total CO2 (19-24) mmol/L ABG O2 Saturation (94-97) % Sodium (137-145) mmol/L Potassium (3.5-5.1) mmol/L Chloride (98-107) mmol/L BUN (9-20) mg/dL Creatinine (0.66-1.25) mg/dL Glucose (74-99) mg/dL POC Glucose (mg/dL) 177 H 187 H (75-99) mg/dL Calcium (8.4-10.2) mg/dL Total Bilirubin (0.2-1.3) mg/dL AST (17-59) U/L Alkaline Phosphatase (38-126) U/L Total Protein (6.3-8.2) g/dL Albumin (3.5-5.0) g/dL Microbiology - Last 24 Hours (Table) 10/23/21 05:50 Blood Culture Gram Stain - Preliminary Blood Blood Culture - Preliminary Presumptive Staph aureus 10/25/21 04:45 Gram Stain - Preliminary Sputum Sputum Culture - Preliminary 10/25/21 23:40 Sputum Culture - Preliminary Sputum 10/25/21 01:49 Blood Culture - Preliminary Blood No Growth after 24 hours Assessment and Plan (1) Bacteremia Current Visit: Yes Status: Acute Code(s): R78.81 - BACTEREMIA SNOMED Code(s): 0229566 Plan: 1patient presented to hospital with weakness in this patient did have a fever tachycardia meeting criteria for sepsis though initial work-up for a source has been negative with a negative UA chest x-ray did not show any acute abnormality patient abdominal was soft clinical examination and no evidence of any lower extremity cellulitis or joint swelling. Ultrasound negative for any hydronephrosis or cholecystitis 2patient did have persistent MSSA bacteremia concerning for endovascular source, CRYSTAL did shows evidence of mitral valve endocarditis, but continued to be so far negative patient to continue with Naficillin and possible CT surgery evaluation in view of the large vegetation Time with Patient: Less than 30
[2021-10-27] MEDS: NAFCILLIN 2 GM in DEXTROSE 5% IN WATER 100 ML IVPB SCH ×12 (00:02→20:47)
[2021-10-27] MEDS: INSULIN ASPART (NovoLOG) 100 UNIT/ML VIAL SQ SCH ×10 (00:08→23:51)
[2021-10-27 00:09] LABS: Glucose,Whole Blood 200 mg/dL (75-99)
[2021-10-27] MEDS: ACETAMINOPHEN TAB 325 MG TAB PO PRN (03:15)
[2021-10-27] MEDS: DILTIAZEM 125 MG in SODIUM CHLORIDE 0.9% 100 ML IV SCH ×2 (04:12→13:21)
[2021-10-27] MEDS: DEXMEDETOMIDINE/0.9% NACL(PMX) 400 MCG in EMPTY BAG 1 BAG IV SCH ×3 (04:12→18:25)
[2021-10-27 05:29] LABS: Glucose,Whole Blood 192 mg/dL (75-99)
[2021-10-27 05:43] LABS: ABG Base Excess 2.6 mmol/L; ABG HCO3 26 mmol/L (21-25); ABG PCO2 34 mmHg (35-45); ABG PH 7.49 (7.35-7.45); ABG PO2 77 mmHg (83-108); ABG TCO2 27 mmol/L (19-24); Allen Test Performed? Yes
[2021-10-27 06:42] LABS: Basophils # (A) 0.1 k/uL (0-0.2); Basophils % (A) 1 %; Eosinophils # (A) 0.3 k/uL (0-0.7); Eosinophils % (A) 2 %; HCT 32.8 % (39.0-53.0); HGB 9.9 gm/dL (13.0-17.5); Hypochromasia Slight; Lymphocytes # (A) 0.6 k/uL (1.0-4.8); Lymphocytes % (A) 5 %; MCH 31.1 pg (25.0-35.0); MCHC 30.3 g/dL (31.0-37.0); MCV 102.5 fL (80.0-100.0); Macrocytosis Slight; Monocytes # (A) 0.3 k/uL (0-1.0); Monocytes % (A) 2 %; Neutrophils # (A) 10.9 k/uL (1.3-7.7); Neutrophils % (A) 89 %; Platelet Count 305 k/uL (150-450); WBC 12.2 k/uL (3.8-10.6)
[2021-10-27] MEDS: NOREPINEPHRINE 4 MG in SODIUM CHLORIDE 0.9% 250 ML IV SCH ×2 (06:44→16:45)
[2021-10-27 06:53] LABS: Albumin 2.3 g/dL (3.5-5.0); Calcium 7.6 mg/dL (8.4-10.2); Potassium 3.5 mmol/L (3.5-5.1); Total Bilirubin 2.5 mg/dL (0.2-1.3); Total Protein 5.9 g/dL (6.3-8.2)
[2021-10-27] MEDS: IPRATROPIUM-ALBUTEROL 3 ML NEB INHALATION SCH ×3 (07:45→20:20)
--- NOTE | 2021-10-27 08:40 | XR ---
EXAMINATION TYPE: XR chest 1V portable DATE OF EXAM: 10/27/2021 COMPARISON: 10/26/2021 HISTORY: Tube placement TECHNIQUE: Single frontal view of the chest is obtained. FINDINGS: ET, NG and central line stable. Interstitial pattern with bilateral infiltrate and small e ffusion stable. Heart size normal. No sizable pneumothorax. IMPRESSION: Bilateral infiltrate and pleural effusions. Superimposed interstitial venous congestion or interstitial pneumonitis unchanged from prior exam.
--- NOTE | 2021-10-27 08:42 | P.PN ---
Subjective Progress Note Date: 10/27/21 10/24/2021, [facility] patient for a follow-up in the patient is altered mentally and the patient is still going through delirium tremens. The patient is currently on Precedex running at 0.2 mcg/kg per minute. Note that the patient is a 55-year-old female patient with known history of diabetes mellitus type 1, hypertension, chronic kidney disease, COPD, dementia, alcohol abuse and crack cocaine abuse. Patient currently is calm and comfortable. Arousable. He is not following commands consistently. At times, gets restless and agitated and the Precedex dose being titrated by the nursing staff here in the intensive care unit. The patient remains on IV fluids with normal saline at the rate of 75 mL an hour. Urine output is adequate. The patient is currently not requiring any pressors. Overall fluid balance is +2.8 L over the past 24 hours and the patient remains on IV Solu regarding MSSA septicemia. Note that the patient's urine culture and blood culture both indicated MSSA. The patient is currently on 4 L about 2 by nasal cannula. The white cell count is at 10.2 with a hemoglobin of 11 and a platelet count of 193. At the same time, the patient has a sodium level of 142, serum bicarbonate is 18 with a BUN of 101 and a creatinine of 2.85 which is improved compared to yesterday. The total protein is at 5.6 with an albumin level of 2.5. The patient otherwise is resting comfortably in bed. No other significant events over the past 24 hours. Nephrology saw the patient and patient was switched from normal saline to a bicarb infusion to counteract his metabolic acidosis. Meanwhile, the patient on Levemir insulin 25 units twice a day and a NovoLog sliding scale coverage. He remains on Protonix. No other significant issues overnight. 10/25/2021, I'm seeing the patient for a follow-up. Events from yesterday evening were noted. The patient went into a tachycardic rhythm/sinus tachycardia versus SVT and the patient was quite lethargic, and unresponsive. He was breathing was also labored. That point, decided to proceed with intubation and the patient was intubated by the MANAGER MEAT overnight and he was placed on a mechanical ventilator. This morning, is converted back into normal sinus rhythm. His not receiving any effusions REGARDING his heart rate. He did receive Cardizem yesterday which was discontinued after the patient's potassium converted into normal sinus rhythm. He is currently on propofol running at 40 mg/kg per minute. He is calm and comfortable. He is quite cigarettes a mechanical ventilator. He is an assist-control mode of mechanical ventilation at the rate of 26 with an FiO2 of 50% with a PEEP of 5 and tidal volume of 400. Chest x-ray postintubation shows increased pulmonary vessel markings and pulmonary vessel congestion and edema. The blood gases from today shows a pH of 7.43 with a pCO2 of 37 and pO2 116 and this was done and FiO2 of 70%. Peak airway pressures around 18. The patient is on IV fluids at [facility]. He did receive bicarb infusion yesterday and his acid base status is improved considerably. White cell count of 15.1 with a hemoglobin above 7 and a platelet count of 232. Sodium is at 145 with a potassium level of 3.8 150 with a bicarb of 23. BUN is 106 and creatinine is at 2.6. Note that his renal function has improved compared to yesterday knowing that his creatinine from yesterday was at 2.8. The patient is currently nothing by mouth. He is well sedated. He is afebrile. He is on Levemir insulin 25 units twice a day along with a NovoLog sliding scale coverage. He is on IV cefazolin. Repeat cultures is again positive for gram-positive cocci and the patient is still persistently bacteremic and he herminio ins on IV Kefzol 2 g every 8 hours. The baseline echocardiogram transthoracic showed no evidence of any regurgitation, high likelihood for infective endocarditis in this patient. Comorbid conditions include type 1 diabetes mellitus, chronic kidney disease, COPD, dementia, alcoholism and crack cocaine use. He also has history of hypertension. 10/26/2021, the patient is being seen for a follow-up. The patient is currently still intubated on a mechanical ventilator and the patient is currently on propofol running at the rate of 30 milligrams per kilogram per minute. The patient's is grimacing to deep painful stimulation and he senses pain in all 4 extremities. Does not follow any commands at this point in time. A CAT scan of the brain was performed yesterday and there is a concern for septic emboli as the CAT scan of the brain showed interval development of a left frontal and parietal cortical and subcortical infarcts which could represent watershed infarct versus septic emboli. Neurology was again involved in the case and there were asked to reconsult on him. He is currently placed on aspirin. Carotid Dopplers are in progress. No seizure activity has been noted. On today's evaluation, the patient remains essentially the same mechanical ventilator setting with a rate of 26, tidal volume of 400, FiO2 of 50% with a PEEP of 5. Lung scan showed pH of 7.49 with a pCO2 of 37 and pO2 of 84. The chest x-ray from today shows adequate expansion of both lungs. ET tube is in a good location. No airspace disease or consolidation. In terms of cultures, the patient's positive blood cultures were consistent with MSSA and the patient was further switched from IV cefazolin to IV nafcillin per recommendations done by infectious disease. Cardiac rhythm is currently sinus and the patient is on no pressors. He is receiving enteral feeding for nutritional support and the sandrine ent is currently on Levemir 25 units twice a day along with a NovoLog sliding scale coverage. Note that overnight, the patient had an episode where he became quite restless and agitated and tachypneic. He also had some mild hypoxemia. He was suctioned and a large mucous plug was aspirated and Zosyn and also for cultures. As mentioned, the patient remains on IV nafcillin for now. No pressors at this point in time. He is afebrile. The plan for today is to proceed with a CRYSTAL. A carotid Doppler is also in progress. Overall fluid balance over the past 24 hours has been -1.4 L and the patient is receiving Lasix 40 m IV every 24 hours. Enterofeeding is in the form of vital high protein. Comorbid conditions include diabetes mellitus type 1, COPD, dementia, alcoholism, hypertension and crack cocaine use. His white cell count today is at 13.6 with a hemoglobin of 9.9. Sodium is 146, BUN is at 118 with a creatinine of 2.4 and as noted, the patient has a component of chronic kidney di sease. LFTs are stable at this point in time. Bilirubin is at 1.5 slightly higher yet AST is at 147 and ALT is at 17 with an alkaline phosphatase of 129. 10/27/2021, the patient remains intubated on mechanical ventilator. He is a case of infective endocarditis and this was confirmed by a CRYSTAL indicating vegetation involving the mitral valve. Overall clinical presentation is consistent with infective endocarditis secondary to underlying sepsis with septic emboli to the brain. CRYSTAL showed large vegetation involving the posterior mitral leaflet with a smaller vegetation involving the anterior mitral leaflet and mild degree of mitral regurgitation. LV function was essentially within normal limits. The patient was also found to have a small atrial septal defects. The patient is still on a mechanical ventilator. The patient is sedated currently with propofol running at 25 mcg/kg per minute. He is an assist-control mode of mechanical ventilation at the rate of 26 with a tidal volume of 400 and FiO2 of 40% with a PEEP of 5. Blood gases showed pH of 7.49 with a pCO2 of 34 and pO2 of 77. The chest x-ray from today is showing adequate positioning of the orotracheal tube. The patient has no evidence of any pneumothorax. The patient has stable left sided atelectasis/effusion along with some right perihilar haziness. Overall chest x-ray findings are essentially stable for now. He was dynamically he is on no pressors. He is maintaining his own blood pressure. His cardiac rhythm is sinus for now. In terms of his mental status, the patient will be given a sedation holiday today. A repeat CAT scan of the head was done yesterday and it showed anterior right temporal and l eft occipital lobe and left parietal lobe infarcts. No evidence of any intracranial hemorrhage. There is underlying cerebral atrophy. Underlying mental status will be evaluated after the patient is weaned off the propofol. Meanwhile, the repeat blood cultures from 10/25/2021 has shown no gross and the last positive blood culture was from 10/23/2021. The sputum Gram stain and culture is showing no microbial organisms for now. The patient remains on IV nafcillin for now. Terms of his fluid balance, the patient has been negative fluid balance of 1.2 L over the past 24 hours. His IV fluids are in the form of 0.9 at the rate of 10 mL an hour. His sodium level today is up 250 with a potas sium level of 3.5. The BUN is at 123 with a creatinine of 2.4 and a potassium level is at 3.5. Liver function tests remain mildly elevated in terms of the alkaline phosphatase. The bilirubin is also is on the rise at 2.5. The white cell count today is at 12.2 with a hemoglobin 9.9 and platelet count of 305. The patient is receiving enteral feeding for nutritional support and currently is on vital high protein at the rate of 39 mL an hour. He is febrile and low- grade fever Objective - Vital Signs Vital signs: Vital Signs Temp 100 F H 10/27/21 04:00 Pulse 86 10/27/21 08:00 Resp 31 H 10/27/21 08:00 BP 121/64 10/27/21 07:00 Pulse Ox 97 10/27/21 07:00 FiO2 40 10/27/21 07:21 Intake & Output 10/26/21 10/27/21 10/27/21 18:59 06:59 18:59 Intake Total 1070.350 2960.814 310 Output Total 955 1190 150 Balance 588.972 216.814 160 Weight 112.6 kg Intake: IV 420 120 310 .9 @ 20 120 120 10 Nafcillin 2 gm In 300 300 Dextrose 5% in Water 100 ml @ 50 mls/hr IVPB Q4HR [facility] Rx#:[id number] Intake, IV Titration 203.972 266.814 Amount propofoL 1,000 mg In 203.972 266.814 Empty Bag 1 bag @ 5 MCG/ KG/MIN 3.489 mls/hr IV . Q24H [facility] Rx#:[id number] Tube Feeding 290 420 Other 630 600 Output: Urine 955 1190 150 Other: Voiding Method Indwelling Catheter Indwelling Catheter ABP, PAP, CO, CI - Last Documented Arterial Blood Pressure - Exam Sedated, currently on propofol, sedated and calm and comfortable, secondary to mechanical ventilator , Orotracheal and orogastric tube are both in place Head exam was generally normal. There was no scleral icterus or corneal arcus. Mucous membranes were moist. HEENT examination is grossly unremarkable. Neck supple. Full range of motion. No adenopathy thyromegaly or neck vein distention. Cardiovascular examination reveals regular rhythm rate. S1-S2 normal. No S3 or S4. No discernible murmur noted. Heart rate 92 bpm. Lungs reveal scattered bilateral rhonchi. Breath sounds equal. No wheezes. Abdomen is obese. No bowel sounds. No tenderness. No masses. Extremities are intact. No cyanosis clubbing or edema. Skin is without rash or lesion. Neurologic examination is nonfocal and the patient is withdrawing to deep painful stimulation. Currently sedated with propofol. - Labs CBC & Chem 7: 10/27/21 05:27 10/27/21 05:27 Labs: Abnormal Lab Results - Last 24 Hours (Table) 10/26/21 10/26/21 10/26/21 Range/Units 05:10 11:23 17:24 WBC (3.8-10.6) k/uL RBC (4.30-5.90) m/uL Hgb (13.0-17.5) gm/dL Hct (39.0-53.0) % MCV (80.0-100.0) fL MCHC (31.0-37.0) g/dL Neutrophils # (1.3-7.7) k/uL Lymphocytes # (1.0-4.8) k/uL ABG pH (7.35-7.45) ABG pCO2 (35-45) mmHg ABG pO2 (83-108) mmHg ABG HCO3 (21-25) mmol/L ABG Total CO2 (19-24) mmol/L Sodium (137-145) mmol/L Chloride (98-107) mmol/L BUN (9-20) mg/dL Creatinine (0.66-1.25) mg/dL Glucose (74-99) mg/dL POC Glucose (mg/dL) 187 H 130 H (75-99) mg/dL Calcium (8.4-10.2) mg/dL Total Bilirubin (0.2-1.3) mg/dL AST (17-59) U/L Alkaline Phosphatase (38-126) U/L Total Protein (6.3-8.2) g/dL Albumin (3.5-5.0) g/dL Triglycerides 312.00 H (0.00-149.00) mg/dL VLDL Cholesterol, Calc 62.40 H (5.00-40.00) mg/dL HDL Cholesterol 7.90 L (40.00-60.00) mg/dL 10/27/21 10/27/21 10/27/21 Range/Units 00:07 05:27 05:27 WBC 12.2 H (3.8-10.6) k/uL RBC 3.20 L (4.30-5.90) m/uL Hgb 9.9 L (13.0-17.5) gm/dL Hct 32.8 L (39.0-53.0) % MCV 102.5 H (80.0-100.0) fL MCHC 30.3 L (31.0-37.0) g/dL Neutrophils # 10.9 H (1.3-7.7) k/uL Lymphocytes # 0.6 L (1.0-4.8) k/uL ABG pH (7.35-7.45) ABG pCO2 (35-45) mmHg ABG pO2 (83-108) mmHg ABG HCO3 (21-25) mmol/L ABG Total CO2 (19-24) mmol/L Sodium 150 H (137-145) mmol/L Chloride 114 H (98-107) mmol/L BUN 123 H* (9-20) mg/dL Creatinine 2.43 H (0.66-1.25) mg/dL Glucose 186 H (74-99) mg/dL POC Glucose (mg/dL) 200 H (75-99) mg/dL Calcium 7.6 L (8.4-10.2) mg/dL Total Bilirubin 2.5 H (0.2-1.3) mg/dL AST 107 H (17-59) U/L Alkaline Phosphatase 168 H (38-126) U/L Total Protein 5.9 L (6.3-8.2) g/dL Albumin 2.3 L (3.5-5.0) g/dL Triglycerides (0.00-149.00) mg/dL VLDL Cholesterol, Calc (5.00-40.00) mg/dL HDL Cholesterol (40.00-60.00) mg/dL 10/27/21 10/27/21 Range/Units 05:28 05:33 WBC (3.8-10.6) k/uL RBC (4.30-5.90) m/uL Hgb (13.0-17.5) gm/dL Hct (39.0-53.0) % MCV (80.0-100.0) fL MCHC (31.0-37.0) g/dL Neutrophils # (1.3-7.7) k/uL Lymphocytes # (1.0-4.8) k/uL ABG pH 7.49 H (7.35-7.45) ABG pCO2 34 L (35-45) mmHg ABG pO2 77 L (83-108) mmHg ABG HCO3 26 H (21-25) mmol/L ABG Total CO2 27 H (19-24) mmol/L Sodium (137-145) mmol/L Chloride (98-107) mmol/L BUN (9-20) mg/dL Creatinine (0.66-1.25) mg/dL Glucose (74-99) mg/dL POC Glucose (mg/dL) 192 H (75-99) mg/dL Calcium (8.4-10.2) mg/dL Total Bilirubin (0.2-1.3) mg/dL AST (17-59) U/L Alkaline Phosphatase (38-126) U/L Total Protein (6.3-8.2) g/dL Albumin (3.5-5.0) g/dL Triglycerides (0.00-149.00) mg/dL VLDL Cholesterol, Calc (5.00-40.00) mg/dL HDL Cholesterol (40.00-60.00) mg/dL Microbiology - Last 24 Hours (Table) 10/25/21 01:49 Blood Culture - Preliminary Blood No Growth after 48 hours 10/26/21 02:45 Gram Stain - Preliminary Throat Tissue Culture - Preliminary 10/25/21 23:40 Gram Stain - Preliminary Sputum Sputum Culture - Preliminary 10/23/21 05:50 Blood Culture Gram Stain - Preliminary Blood Blood Culture - Preliminary Presumptive Staph aureus 10/25/21 04:45 Gram Stain - Preliminary Sputum Sputum Culture - Preliminary Assessment and Plan Plan: Infective endocarditis. The patient was found to have large vegetation involving the posterior leaflet of the mitral valve along with some mild mitral regurgitation. This is a MSSA related infective endocarditis. Septic shock, MSSA, off vasopressors and the patient is currently maintaining his own blood pressure. The patient was found to have MSSA in the urine and in the blood. Note that the patient has been persistently bacteremic. Blood cultures on yesterday's since showing gram-positive cocci, currently on IV nafcillin. The patient is is running a low-grade fever. Hemodynamically stable. The most recent blood culture from 10/25/2021 showed no growth thus far. Septic emboli to the brain secondary to infective endocarditis. Acute hypoxic respiratory failure, currently intubated on a mechanical ventilator, chest x-ray and blood gases were noted Mental status changes, multifactorial, related to drug withdrawal and septic emboli with multi level infarct involving the frontal and the parietal and occipital lobes without any evidence of bleeding. Diabetic ketoacidosis , the patient is a component of DKA at time of admission. Currently the patient was on insulin drip and the patient was switched to long- acting insulin with Levemir 25 units twice a day and a sliding scale coverage. Delirium tremens IRIS on CKD, creatinine is stable for now History of type 1 diabetes mellitus, currently on Levemir insulin Anion gap metabolic acidosis, recovered Elevated troponin level. History of chronic kidney disease. History of COPD from ongoing and heavy tobacco use. History of dementia. History of chronic alcohol abuse, drinking 1/5 of vodka daily. Daily crack cocaine use. Pericolonic hypernatremia Plan Keep the patient ICU No ventilator changes for today D5 water at the rate of 100 mL an hour and replace the free water deficit on this patient Monitor the sodium level CAT scan of the brain was noted and the patient has multilevel infarct/optic emboli involving the right frontal and left temporal and parietal areas CRYSTAL noted Carotid Dopplers noted Continue IV nafcillin Lasix.nutritional support IV fluids at KVO long-acting insulin Levemir 25 units twice a day We'll continue to follow make further recommendations based on his progress. Prognosis remains extremely poor. It'll be very difficult to extubate this patient. I'm going to give him a sedation holiday and assess his mental status and his readiness to wean by checking his mentation and weaning parameters. Further recommendations are to follow. I had a lengthy discussion with the and I was told that the patient himself would not have wanted long-term mechanical ventilation in the event his condition becomes prolonged. We'll continue the current care for now. The family and the parents will be also updated on his condition. Critically care evaluation was done and morning and 30 minutes. The patient's critically ill. Family has been updated on his condition yesterday. Time with Patient: Greater than 30
[2021-10-27] MEDS: DEXTROSE 5% IN WATER 1,000 ML IV SCH ×2 (08:49→18:25)
[2021-10-27] MEDS ORDERED: Potassium Replacement Protocol 1 EACH MISC MISCELLANE PRN (09:03)
[2021-10-27] MEDS: NICOTINE 21MG/24HR PATCH TRANSDERM SCH (09:04)
[2021-10-27] MEDS: CHLORHEXIDINE GLUCONATE 15 ML CUP MUCOUS MEM SCH ×2 (09:04→20:47)
[2021-10-27] MEDS: PANTOPRAZOLE 40 MG/10 ML VIAL IVP SCH (09:04)
[2021-10-27] MEDS: THIAMINE 100 MG/ML 2 ML VIAL IVP SCH ×2 (09:04→20:47)
[2021-10-27] MEDS: INSULIN DETEMIR (LEVEMIR) 100 UNIT/ML SYR SQ SCH ×2 (09:04→20:47)
[2021-10-27] MEDS: POTASSIUM BICARBONATE/CIT AC 20 MEQ TABLET.EFF NG-TUBE SCH ×2 (09:18→10:42)
--- NOTE | 2021-10-27 09:25 | P.PN ---
Subjective Progress Note Date: 10/27/21 The patient is a 55-year-old male who is currently admitted to the hospital with sepsis and acute renal failure. Cardiology was consulted for abnormal troponin. The patient has preserved LV function without wall motion abnormalities. Elevated troponins are likely secondary to acute kidney injury. Cardiology was re-consulted for CRYSTAL. CRYSTAL shows large vegetation involving the posterior mitral leaflet and smaller vegetation on the anterior mitral leaflet with mild regurgitation. The patient is being followed by infectious disease. The patient was examined in the ICU. He is currently intubated. He is currently only responsive to noxious stimuli. GENERAL: Ill-appearing. NECK: Supple without JVD or thyromegaly. LUNGS: Breath sounds are coarse to auscultation. HEART: Regular rate and rhythm without murmurs, rubs or gallops. S1 and S2 heard. Tachycardic. EXTREMITIES: Normal range of motion, generalized edema. No clubbing or cyanosis. Peripheral pulses intact. 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 Objective - Vital Signs Vital signs: Vital Signs Temp 100 F H 10/27/21 04:00 Pulse 86 10/27/21 08:00 Resp 31 H 10/27/21 08:00 BP 121/64 10/27/21 07:00 Pulse Ox 97 10/27/21 07:00 FiO2 40 10/27/21 07:21 Intake & Output 10/26/21 10/27/21 10/27/21 18:59 06:59 18:59 Intake Total 9626.226 9182.814 310 Output Total 955 1190 150 Balance 588.972 216.814 160 Weight 112.6 kg Intake: IV 420 120 310 .9 @ 20 120 120 10 Nafcillin 2 gm In 300 300 Dextrose 5% in Water 100 ml @ 50 mls/hr IVPB Q4HR [facility] Rx#:[id number] Intake, IV Titration 203.972 266.814 Amount propofoL 1,000 mg In 203.972 266.814 Empty Bag 1 bag @ 5 MCG/ KG/MIN 3.489 mls/hr IV . Q24H [facility] Rx#:[id number] Tube Feeding 290 420 Other 630 600 Output: Urine 955 1190 150 Other: Voiding Method Indwelling Catheter Indwelling Catheter ABP, PAP, CO, CI - Last Documented Arterial Blood Pressure - Labs CBC & Chem 7: 10/27/21 05:27 10/27/21 05:27 Labs: Abnormal Lab Results - Last 24 Hours (Table) 10/26/21 10/26/21 10/26/21 Range/Units 05:10 11:23 17:24 WBC (3.8-10.6) k/uL RBC (4.30-5.90) m/uL Hgb (13.0-17.5) gm/dL Hct (39.0-53.0) % MCV (80.0-100.0) fL MCHC (31.0-37.0) g/dL Neutrophils # (1.3-7.7) k/uL Lymphocytes # (1.0-4.8) k/uL ABG pH (7.35-7.45) ABG pCO2 (35-45) mmHg ABG pO2 (83-108) mmHg ABG HCO3 (21-25) mmol/L ABG Total CO2 (19-24) mmol/L Sodium (137-145) mmol/L Chloride (98-107) mmol/L BUN (9-20) mg/dL Creatinine (0.66-1.25) mg/dL Glucose (74-99) mg/dL POC Glucose (mg/dL) 187 H 130 H (75-99) mg/dL Calcium (8.4-10.2) mg/dL Total Bilirubin (0.2-1.3) mg/dL AST (17-59) U/L Alkaline Phosphatase (38-126) U/L Total Protein (6.3-8.2) g/dL Albumin (3.5-5.0) g/dL Triglycerides 312.00 H (0.00-149.00) mg/dL VLDL Cholesterol, Calc 62.40 H (5.00-40.00) mg/dL HDL Cholesterol 7.90 L (40.00-60.00) mg/dL 10/27/21 10/27/21 10/27/21 Range/Units 00:07 05:27 05:27 WBC 12.2 H (3.8-10.6) k/uL RBC 3.20 L (4.30-5.90) m/uL Hgb 9.9 L (13.0-17.5) gm/dL Hct 32.8 L (39.0-53.0) % MCV 102.5 H (80.0-100.0) fL MCHC 30.3 L (31.0-37.0) g/dL Neutrophils # 10.9 H (1.3-7.7) k/uL Lymphocytes # 0.6 L (1.0-4.8) k/uL ABG pH (7.35-7.45) ABG pCO2 (35-45) mmHg ABG pO2 (83-108) mmHg ABG HCO3 (21-25) mmol/L ABG Total CO2 (19-24) mmol/L Sodium 150 H (137-145) mmol/L Chloride 114 H (98-107) mmol/L BUN 123 H* (9-20) mg/dL Creatinine 2.43 H (0.66-1.25) mg/dL Glucose 186 H (74-99) mg/dL POC Glucose (mg/dL) 200 H (75-99) mg/dL Calcium 7.6 L (8.4-10.2) mg/dL Total Bilirubin 2.5 H (0.2-1.3) mg/dL AST 107 H (17-59) U/L Alkaline Phosphatase 168 H (38-126) U/L Total Protein 5.9 L (6.3-8.2) g/dL Albumin 2.3 L (3.5-5.0) g/dL Triglycerides (0.00-149.00) mg/dL VLDL Cholesterol, Calc (5.00-40.00) mg/dL HDL Cholesterol (40.00-60.00) mg/dL 10/27/21 10/27/21 Range/Units 05:28 05:33 WBC (3.8-10.6) k/uL RBC (4.30-5.90) m/uL Hgb (13.0-17.5) gm/dL Hct (39.0-53.0) % MCV (80.0-100.0) fL MCHC (31.0-37.0) g/dL Neutrophils # (1.3-7.7) k/uL Lymphocytes # (1.0-4.8) k/uL ABG pH 7.49 H (7.35-7.45) ABG pCO2 34 L (35-45) mmHg ABG pO2 77 L (83-108) mmHg ABG HCO3 26 H (21-25) mmol/L ABG Total CO2 27 H (19-24) mmol/L Sodium (137-145) mmol/L Chloride (98-107) mmol/L BUN (9-20) mg/dL Creatinine (0.66-1.25) mg/dL Glucose (74-99) mg/dL POC Glucose (mg/dL) 192 H (75-99) mg/dL Calcium (8.4-10.2) mg/dL Total Bilirubin (0.2-1.3) mg/dL AST (17-59) U/L Alkaline Phosphatase (38-126) U/L Total Protein (6.3-8.2) g/dL Albumin (3.5-5.0) g/dL Triglycerides (0.00-149.00) mg/dL VLDL Cholesterol, Calc (5.00-40.00) mg/dL HDL Cholesterol (40.00-60.00) mg/dL Microbiology - Last 24 Hours (Table) 10/25/21 01:49 Blood Culture - Preliminary Blood No Growth after 48 hours 10/26/21 02:45 Gram Stain - Preliminary Throat Tissue Culture - Preliminary 10/25/21 23:40 Gram Stain - Preliminary Sputum Sputum Culture - Preliminary 10/23/21 05:50 Blood Culture Gram Stain - Preliminary Blood Blood Culture - Preliminary Presumptive Staph aureus 10/25/21 04:45 Gram Stain - Preliminary Sputum Sputum Culture - Preliminary
--- NOTE | 2021-10-27 09:38 | P.PN ---
Subjective Patient is seen in follow-up for acute kidney injury and chronic kidney disease. Renal function stable. Nonoliguric. Intubated. On 50% FiO2. Blood pressure stable. Receiving tube feeds with water flushes. Sodium level 150 this morning. Vital signs are stable. HEENT: Intubated. LUNGS: Breath sounds decreased. HEART: Regular rate and rhythm. ABDOMEN: Soft, no distention. EXTREMITITES: Trace edema. Objective - Vital Signs Vital signs: Vital Signs Temp 100 F H 10/27/21 04:00 Pulse 86 10/27/21 08:00 Resp 31 H 10/27/21 08:00 BP 121/64 10/27/21 07:00 Pulse Ox 97 10/27/21 07:00 FiO2 40 10/27/21 07:21 Intake & Output 10/26/21 10/27/21 10/27/21 18:59 06:59 18:59 Intake Total 8649.912 1758.814 310 Output Total 955 1190 150 Balance 588.972 216.814 160 Weight 112.6 kg Intake: IV 420 120 310 .9 @ 20 120 120 10 Nafcillin 2 gm In 300 300 Dextrose 5% in Water 100 ml @ 50 mls/hr IVPB Q4HR [facility] Rx#:[id number] Intake, IV Titration 203.972 266.814 Amount propofoL 1,000 mg In 203.972 266.814 Empty Bag 1 bag @ 5 MCG/ KG/MIN 3.489 mls/hr IV . Q24H [facility] Rx#:[id number] Tube Feeding 290 420 Other 630 600 Output: Urine 955 1190 150 Other: Voiding Method Indwelling Catheter Indwelling Catheter ABP, PAP, CO, CI - Last Documented Arterial Blood Pressure - Labs CBC & Chem 7: 10/27/21 05:27 10/27/21 05:27 Labs: Abnormal Lab Results - Last 24 Hours (Table) 10/26/21 10/26/21 10/26/21 Range/Units 05:10 11:23 17:24 WBC (3.8-10.6) k/uL RBC (4.30-5.90) m/uL Hgb (13.0-17.5) gm/dL Hct (39.0-53.0) % MCV (80.0-100.0) fL MCHC (31.0-37.0) g/dL Neutrophils # (1.3-7.7) k/uL Lymphocytes # (1.0-4.8) k/uL ABG pH (7.35-7.45) ABG pCO2 (35-45) mmHg ABG pO2 (83-108) mmHg ABG HCO3 (21-25) mmol/L ABG Total CO2 (19-24) mmol/L Sodium (137-145) mmol/L Chloride (98-107) mmol/L BUN (9-20) mg/dL Creatinine (0.66-1.25) mg/dL Glucose (74-99) mg/dL POC Glucose (mg/dL) 187 H 130 H (75-99) mg/dL Calcium (8.4-10.2) mg/dL Total Bilirubin (0.2-1.3) mg/dL AST (17-59) U/L Alkaline Phosphatase (38-126) U/L Total Protein (6.3-8.2) g/dL Albumin (3.5-5.0) g/dL Triglycerides 312.00 H (0.00-149.00) mg/dL VLDL Cholesterol, Calc 62.40 H (5.00-40.00) mg/dL HDL Cholesterol 7.90 L (40.00-60.00) mg/dL 10/27/21 10/27/21 10/27/21 Range/Units 00:07 05:27 05:27 WBC 12.2 H (3.8-10.6) k/uL RBC 3.20 L (4.30-5.90) m/uL Hgb 9.9 L (13.0-17.5) gm/dL Hct 32.8 L (39.0-53.0) % MCV 102.5 H (80.0-100.0) fL MCHC 30.3 L (31.0-37.0) g/dL Neutrophils # 10.9 H (1.3-7.7) k/uL Lymphocytes # 0.6 L (1.0-4.8) k/uL ABG pH (7.35-7.45) ABG pCO2 (35-45) mmHg ABG pO2 (83-108) mmHg ABG HCO3 (21-25) mmol/L ABG Total CO2 (19-24) mmol/L Sodium 150 H (137-145) mmol/L Chloride 114 H (98-107) mmol/L BUN 123 H* (9-20) mg/dL Creatinine 2.43 H (0.66-1.25) mg/dL Glucose 186 H (74-99) mg/dL POC Glucose (mg/dL) 200 H (75-99) mg/dL Calcium 7.6 L (8.4-10.2) mg/dL Total Bilirubin 2.5 H (0.2-1.3) mg/dL AST 107 H (17-59) U/L Alkaline Phosphatase 168 H (38-126) U/L Total Protein 5.9 L (6.3-8.2) g/dL Albumin 2.3 L (3.5-5.0) g/dL Triglycerides (0.00-149.00) mg/dL VLDL Cholesterol, Calc (5.00-40.00) mg/dL HDL Cholesterol (40.00-60.00) mg/dL 10/27/21 10/27/21 Range/Units 05:28 05:33 WBC (3.8-10.6) k/uL RBC (4.30-5.90) m/uL Hgb (13.0-17.5) gm/dL Hct (39.0-53.0) % MCV (80.0-100.0) fL MCHC (31.0-37.0) g/dL Neutrophils # (1.3-7.7) k/uL Lymphocytes # (1.0-4.8) k/uL ABG pH 7.49 H (7.35-7.45) ABG pCO2 34 L (35-45) mmHg ABG pO2 77 L (83-108) mmHg ABG HCO3 26 H (21-25) mmol/L ABG Total CO2 27 H (19-24) mmol/L Sodium (137-145) mmol/L Chloride (98-107) mmol/L BUN (9-20) mg/dL Creatinine (0.66-1.25) mg/dL Glucose (74-99) mg/dL POC Glucose (mg/dL) 192 H (75-99) mg/dL Calcium (8.4-10.2) mg/dL Total Bilirubin (0.2-1.3) mg/dL AST (17-59) U/L Alkaline Phosphatase (38-126) U/L Total Protein (6.3-8.2) g/dL Albumin (3.5-5.0) g/dL Triglycerides (0.00-149.00) mg/dL VLDL Cholesterol, Calc (5.00-40.00) mg/dL HDL Cholesterol (40.00-60.00) mg/dL Microbiology - Last 24 Hours (Table) 10/25/21 04:45 Gram Stain - Final Sputum Sputum Culture - Final 10/25/21 01:49 Blood Culture - Preliminary Blood No Growth after 48 hours 10/26/21 02:45 Gram Stain - Preliminary Throat Tissue Culture - Preliminary 10/25/21 23:40 Gram Stain - Preliminary Sputum Sputum Culture - Preliminary 10/23/21 05:50 Blood Culture Gram Stain - Preliminary Blood Blood Culture - Preliminary Presumptive Staph aureus Assessment and Plan Plan: Assessment: 1. Acute kidney injury secondary to ATN secondary to septic shock. Creatinine was 2.59 on admission and peaked at 3.56 this admission - stable at 2.4 today. Nonoliguric. No hydronephrosis noted on kidney ultrasound. Elevated BUN secondary to hypercatabolic state. Not on steroids. No evidence of GI bleed. 2. Septic shock secondary to staph aureus UTI and bacteremia on antibiotics. Infectious disease following. Off Levophed. 3. Chronic kidney disease stage IIIA with baseline creatinine in the range of 1.5-1.7 secondary to diabetic kidney disease. 4. Metabolic acidosis secondary to acute kidney injury and IV fluids. Status post bicarb drip. Improved. 5. Hypernatremia from lack of oral water intake. 6. Hypokalemia from poor intake. Being replaced. 7. Diabetes mellitus. Serum acetone positive. Status post insulin drip. 8. Volume overload. 9. A. fib with RVR. Status post cardizem drip. Plan: Continue to hold diuretics. Maintain free water flushes 300 mL every 6 hours with tube feeds. Started on D5 W at 100 mL an hour this morning. Repeat sodium level this afternoon. Avoid nephrotoxins. Continue to monitor renal function and urine output. Preserved ejection fraction with moderate LVH noted on echocardiogram. Phosphorus 3.5 dated 10/24/21. Replace potassium. Wean FiO2.
[2021-10-27] MEDS: HYDROmorphone 1 MG/ML 1 ML SYRINGE IVP PRN ×3 (09:59→20:15)
--- NOTE | 2021-10-27 10:44 | P.GSCN ---
History of Present Illness Consult date: 10/27/21 Reason for Consult: Bacterial endocarditis Requesting physician: Elizabeth Spicer History of present illness: This is a 55-year-old gentleman who follows on an outpatient basis with Dr. Fischer for primary care. He has a previous medical history of hypertension, chronic kidney disease, diabetes with peripheral neuropathy, COPD, seizure disorder, alcohol abuse and crack cocaine use. He presented to [facility] 10/20/2021 with complaints of generalized weakness. He was admitted to the ICU with dehydration and acute kidney injury with consultations to nephrology, pulmonology/roll hand, cardiology, neurology, and infectious disease. He was febrile with temperature 102-103F, WBC was normal on admission at 9.8, elevated as high as 13.6, he had anion gap metabolic acidosis and was felt to likely have sepsis, blood cultures and urine culture positive for staph. Antibiotics were initiated. Surface echo was completed October 21 demonstrating normal left ventricular systolic function, mild aortic stenosis, mild aortic regurgitation, mild mitral and mild tricuspid regurgitation. He continued to be febrile with elevated white blood cell count. Early in the morning October 25 the patient became less responsive, he was felt to be going through DTs, decision was made to intubate the patient. Transesophageal echocardiogram was completed yesterday showing large vegetation involving the posterior mitral leaflet with small vegetation involving the anterior mitral leaflet with mild mitral regur gitation. Due to these findings consultations placed to Dr. Richardson from cardiothoracic surgery for surgical recommendations. Review of Systems Review of systems was unable to be completed as the patient is currently mechanically ventilated, review of chart completed. ROS unobtainable: due to endotracheal tube Past Medical History Past Medical History: COPD, Diabetes Mellitus, GERD/Reflux, Hypertension, Seizure Disorder Additional Past Medical History / Comment(s): NEUROPATHY LOWER EXTREMITIES, HX OF FEET FX'S. "CRACKED L-5". History of Any Multi-Drug Resistant Organisms: None Reported Additional Past Surgical History / Comment(s): COLONOSCOPY, carotids endaterectomy (right). Past Anesthesia/Blood Transfusion Reactions: No Reported Reaction Additional Past Anesthesia/Blood Transfusion Reaction / Comm: STATES BLOOD PRESSURE "JAMES HIGH" AFTER COLONOSCOPY. Past Psychological History: Anxiety Smoking Status: Never smoker Past Alcohol Use History: Abuse Past Drug Use History: Cocaine - Past Family History Mother Family Medical History: Diabetes Mellitus Additional Family Medical History / Comment(s): crohn's disease, Medications and Allergies Home Medications Medication Instructions Recorded Confirmed Type Omeprazole [PriLOSEC] 20 mg PO DAILY 01/17/14 10/20/21 History lisinopriL [Zestril] 20 mg PO DAILY 08/04/17 10/20/21 History Albuterol Sulfate [Proair Hfa] 2 puff INHALATION RT-Q4H PRN 10/20/21 10/20/21 History Atorvastatin [Lipitor] 40 mg PO DAILY 10/20/21 10/20/21 History Donepezil [Aricept] 10 mg PO DAILY 10/20/21 10/20/21 History Glucagon [Baqsimi] 1 spray NASAL DAILY PRN 10/20/21 10/20/21 History INSULIN LISPRO (For Pump) [humaLOG 0.01 units SQ-PUMP CONTINUOUS 10/20/21 10/20/21 History (For Pump)] Allergies Allergy/AdvReac Type Severity Reaction Status Date / Time No Known Allergies Allergy Verified 10/20/21 19:48 Surgical - Exam Vital Signs Temp Pulse Resp BP Pulse Ox 100.4 F H 131 H 18 130/81 97 10/20/21 17:18 10/20/21 17:18 10/20/21 17:18 10/20/21 17:18 10/20/21 17:18 CONSTITUTIONAL: Currently on mechanical ventilation and sedated with propofol EYES: Pupils equal, round, reactive to light ENT: Moist mucous membranes without oral lesions present . 8.0 ET tube present, 23 at the lip NECK: No masses, no bruits, trachea midline RESPIRATORY: Lungs sounds diminished bilaterally. Respirations even, nonlabored. Currently on mechanical ventilation, settings assist control mode, FiO2 40%, tidal volume 400, respiratory rate 26, PEEP 5 CARDIOVASCULAR: S1, S2 present. Regular rate and rhythm, sinus rhythm on telemetry. Palpable peripheral pulses bilaterally. Trace generalized edema present. No calf pain or tenderness noted. No significant lower extremity varicosities noted. GASTROINTESTINAL: Abdomen soft, nontender, nondistended without masses or organomegaly noted. Active bowel sounds present 4 quadrants. OG tube present, tolerating tube feedings at 39 mL/h GENITOURINARY: Beltrán present draining cloudy urine with sediment INTEGUMENTARY: Skin is warm and dry NEUROLOGIC: Currently sedated on mechanical ventilation INVASIVE LINES: Left subclavian triple-lumen central line present, left radial arterial line present Results - Labs 10/27/21 05:27 10/27/21 05:27 Abnormal Lab Results - Last 24 Hours (Table) 10/26/21 10/26/21 10/26/21 Range/Units 05:10 11:23 17:24 WBC (3.8-10.6) k/uL RBC (4.30-5.90) m/uL Hgb (13.0-17.5) gm/dL Hct (39.0-53.0) % MCV (80.0-100.0) fL MCHC (31.0-37.0) g/dL Neutrophils # (1.3-7.7) k/uL Lymphocytes # (1.0-4.8) k/uL ABG pH (7.35-7.45) ABG pCO2 (35-45) mmHg ABG pO2 (83-108) mmHg ABG HCO3 (21-25) mmol/L ABG Total CO2 (19-24) mmol/L Sodium (137-145) mmol/L Chloride (98-107) mmol/L BUN (9-20) mg/dL Creatinine (0.66-1.25) mg/dL Glucose (74-99) mg/dL POC Glucose (mg/dL) 187 H 130 H (75-99) mg/dL Calcium (8.4-10.2) mg/dL Magnesium (1.6-2.3) mg/dL Total Bilirubin (0.2-1.3) mg/dL AST (17-59) U/L Alkaline Phosphatase (38-126) U/L Total Protein (6.3-8.2) g/dL Albumin (3.5-5.0) g/dL Triglycerides 312.00 H (0.00-149.00) mg/dL VLDL Cholesterol, Calc 62.40 H (5.00-40.00) mg/dL HDL Cholesterol 7.90 L (40.00-60.00) mg/dL 10/27/21 10/27/21 10/27/21 Range/Units 00:07 05:27 05:27 WBC 12.2 H (3.8-10.6) k/uL RBC 3.20 L (4.30-5.90) m/uL Hgb 9.9 L (13.0-17.5) gm/dL Hct 32.8 L (39.0-53.0) % MCV 102.5 H (80.0-100.0) fL MCHC 30.3 L (31.0-37.0) g/dL Neutrophils # 10.9 H (1.3-7.7) k/uL Lymphocytes # 0.6 L (1.0-4.8) k/uL ABG pH (7.35-7.45) ABG pCO2 (35-45) mmHg ABG pO2 (83-108) mmHg ABG HCO3 (21-25) mmol/L ABG Total CO2 (19-24) mmol/L Sodium 150 H (137-145) mmol/L Chloride 114 H (98-107) mmol/L BUN 123 H* (9-20) mg/dL Creatinine 2.43 H (0.66-1.25) mg/dL Glucose 186 H (74-99) mg/dL POC Glucose (mg/dL) 200 H (75-99) mg/dL Calcium 7.6 L (8.4-10.2) mg/dL Magnesium (1.6-2.3) mg/dL Total Bilirubin 2.5 H (0.2-1.3) mg/dL AST 107 H (17-59) U/L Alkaline Phosphatase 168 H (38-126) U/L Total Protein 5.9 L (6.3-8.2) g/dL Albumin 2.3 L (3.5-5.0) g/dL Triglycerides (0.00-149.00) mg/dL VLDL Cholesterol, Calc (5.00-40.00) mg/dL HDL Cholesterol (40.00-60.00) mg/dL 10/27/21 10/27/21 10/27/21 Range/Units 05:28 05:33 05:57 WBC (3.8-10.6) k/uL RBC (4.30-5.90) m/uL Hgb (13.0-17.5) gm/dL Hct (39.0-53.0) % MCV (80.0-100.0) fL MCHC (31.0-37.0) g/dL Neutrophils # (1.3-7.7) k/uL Lymphocytes # (1.0-4.8) k/uL ABG pH 7.49 H (7.35-7.45) ABG pCO2 34 L (35-45) mmHg ABG pO2 77 L (83-108) mmHg ABG HCO3 26 H (21-25) mmol/L ABG Total CO2 27 H (19-24) mmol/L Sodium (137-145) mmol/L Chloride (98-107) mmol/L BUN (9-20) mg/dL Creatinine (0.66-1.25) mg/dL Glucose (74-99) mg/dL POC Glucose (mg/dL) 192 H (75-99) mg/dL Calcium (8.4-10.2) mg/dL Magnesium 2.4 H (1.6-2.3) mg/dL Total Bilirubin (0.2-1.3) mg/dL AST (17-59) U/L Alkaline Phosphatase (38-126) U/L Total Protein (6.3-8.2) g/dL Albumin (3.5-5.0) g/dL Triglycerides (0.00-149.00) mg/dL VLDL Cholesterol, Calc (5.00-40.00) mg/dL HDL Cholesterol (40.00-60.00) mg/dL Microbiology - Last 24 Hours (Table) 10/25/21 04:45 Gram Stain - Final Sputum Sputum Culture - Final 10/25/21 01:49 Blood Culture - Preliminary Blood No Growth after 48 hours 10/26/21 02:45 Gram Stain - Preliminary Throat Tissue Culture - Preliminary 10/25/21 23:40 Gram Stain - Preliminary Sputum Sputum Culture - Preliminary 10/23/21 05:50 Blood Culture Gram Stain - Preliminary Blood Blood Culture - Preliminary Presumptive Staph aureus Diabetes panel 10/26/21 10/27/21 Range/Units 05:10 05:27 Sodium 150 H (137-145) mmol/L Potassium 3.5 (3.5-5.1) mmol/L Chloride 114 H (98-107) mmol/L Carbon Dioxide 24 (22-30) mmol/L BUN 123 H* (9-20) mg/dL Creatinine 2.43 H (0.66-1.25) mg/dL Glucose 186 H (74-99) mg/dL Calcium 7.6 L (8.4-10.2) mg/dL AST 107 H (17-59) U/L ALT 19 (4-49) U/L Alkaline Phosphatase 168 H (38-126) U/L Total Protein 5.9 L (6.3-8.2) g/dL Albumin 2.3 L (3.5-5.0) g/dL Triglycerides 312.00 H (0.00-149.00) mg/dL HDL Cholesterol 7.90 L (40.00-60.00) mg/dL Calcium panel 10/27/21 Range/Units 05:27 Calcium 7.6 L (8.4-10.2) mg/dL Albumin 2.3 L (3.5-5.0) g/dL Pituitary panel 10/27/21 Range/Units 05:27 Sodium 150 H (137-145) mmol/L Potassium 3.5 (3.5-5.1) mmol/L Chloride 114 H (98-107) mmol/L Carbon Dioxide 24 (22-30) mmol/L BUN 123 H* (9-20) mg/dL Creatinine 2.43 H (0.66-1.25) mg/dL Glucose 186 H (74-99) mg/dL Calcium 7.6 L (8.4-10.2) mg/dL Adrenal panel 10/27/21 Range/Units 05:27 Sodium 150 H (137-145) mmol/L Potassium 3.5 (3.5-5.1) mmol/L Chloride 114 H (98-107) mmol/L Carbon Dioxide 24 (22-30) mmol/L BUN 123 H* (9-20) mg/dL Creatinine 2.43 H (0.66-1.25) mg/dL Glucose 186 H (74-99) mg/dL Calcium 7.6 L (8.4-10.2) mg/dL Total Bilirubin 2.5 H (0.2-1.3) mg/dL AST 107 H (17-59) U/L ALT 19 (4-49) U/L Alkaline Phosphatase 168 H (38-126) U/L Total Protein 5.9 L (6.3-8.2) g/dL Albumin 2.3 L (3.5-5.0) g/dL - Imaging Chest x-ray: report reviewed, image reviewed Additional studies: Echocardiogram was reviewed Assessment and Plan Assessment: 1. Mitral valve bacterial endocarditis, large vegetation on the posterior leaflet with small vegetation on the anterior leaflet per CRYSTAL, blood cultures positive for staph 2. Septic shock 3. Acute hypoxic respiratory failure, currently intubated on a mechanical ventilator 4. Mental status change, multifactorial 5. Diabetic with diabetic ketoacidosis 6. History of alcohol abuse with acute DTs 7. Acute on chronic kidney disease 8. Anion gap metabolic acidosis, resolved 9. Elevated troponins 10. COPD, chronic tobacco dependence 11. History of dementia 12. History of crack cocaine use Plan: The patient was seen and examined in the intensive care unit. Chart/diagnostics were reviewed. Will discuss the case in detail with Dr. Richardson. At this time our recommendations are to continue IV antibiotics. Patient would be high risk for any surgical intervention with known history of drug abuse as he would likely reinfect a new valve. Continue medical management per primary care, pulmonology/roll hand. Thank you for this consult. Please call us with any further questions. I have personally seen and examined the patient, performed the documentation and the assessment and plan as written. Number of minutes spent on the visit: 30. Shyanne Self, LEXY-C
[2021-10-27 11:42] LABS: Glucose,Whole Blood 178 mg/dL (75-99)
--- NOTE | 2021-10-27 13:17 | P.PN ---
Subjective Progress Note Date: 10/27/21 Patient was seen at bedside and he continues to be intubated on a ventilator. Per the patient nurse he was on IV propofol during the morning that was discontinued just prior to meet as seeing the patient and the was just started on the Precedex. Patient also received Dilaudid. Per the patient nurse prior to that him receiving delighted and being started on Precedex was opening his eyes. Objective - Vital Signs Vital signs: Vital Signs Temp 99.1 F 10/27/21 08:00 Pulse 87 10/27/21 12:18 Resp 26 H 10/27/21 12:18 BP 143/77 10/27/21 11:00 Pulse Ox 98 10/27/21 11:00 FiO2 40 10/27/21 11:57 Intake & Output 10/26/21 10/27/21 10/27/21 18:59 06:59 18:59 Intake Total 5125.849 8467.814 1172.414 Output Total 955 1190 545 Balance 588.972 216.814 627.414 Weight 112.6 kg 113.2 kg Intake: IV 420 120 310 .9 @ 20 120 120 10 Nafcillin 2 gm In 300 300 Dextrose 5% in Water 100 ml @ 50 mls/hr IVPB Q4HR [facility] Rx#:[id number] Intake, IV Titration 203.972 266.814 506.414 Amount Dextrose 5% in Water 1, 400 000 ml @ 100 mls/hr IV . Q10H [facility] Rx#:[id number] propofoL 1,000 mg In 203.972 266.814 106.414 Empty Bag 1 bag @ 5 MCG/ KG/MIN 3.489 mls/hr IV . Q24H [facility] Rx#:[id number] Tube Feeding 290 420 156 Other 630 600 200 Output: Urine 955 1190 545 Other: Voiding Method Indwelling Catheter Indwelling Catheter Indwelling Catheter ABP, PAP, CO, CI - Last Documented Arterial Blood Pressure - Exam GENERAL: The patient is lying in bed and does not seem in acute distress. LUNG: Intubated on ventilator. NEUROLOGICAL: Limited. Is currently on IV Precedex 0.4mcg/kg/hr. IV Propofol was discontinued earlier. Recently recently Dilaudid. Higher mental function: The patient is comatose. GCS 34( E2, VT1, M1). No verbalizing or following commands. Cranial nerves: He will open his eyes bilaterally to painful stimuli. Pupils are 2mm and non-reactive bilaterally. Has bilateral corneal reflex. Grimaces face to pain bilaterally and opens his eyes. Has positive weak gag reflex. Is breathing over the vent. Motor: The strength is unable to assess but grimaces to face with painful stimuli of uppers. No spontaneous movement. Sensation: grimaces to face with painful stimuli of uppers SOME OF THE WORK-UP DURING THIS HOSPITAL VISIT: CT head was ordered by primary team yesterday for altered mental status. It is reported as interval development of left frontal and left parietal cortical and subcortical infarct possibly representing watershed infarct however underlying embolic etiology cannot be excluded. I personally reviewed the CT of the head and I felt more embolic. And I agree was the different compared to the 06/2021. 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 No acute intracranial abnormality. Cervical atrophy. No change compared to yesterday. I personally reviewed it and I do agree the patient does have an old the right temporal from that an initial CT during this admission but the left parietal occipital I did not see it on the day prior and the left otherwise the patient has a left frontal parietal lesion seen from the prior Patient had a transesophageal echocardiogram: This reported as large vegetation involving the posterior mitral leaflet was smaller vegetation involving the anterior mitral leaflet with mild mitral regurgitation. Left ventricle systolic function is normal. There is a small atrioseptal defect noted with bilateral direct uroflow Carotid duplex is reported as mild homogeneous plaque with no significant hemodynamic stenosis visualized Routine EEG on 10/26/2021 is abnormal. The background slowing is suggestive of moderate encephalopathy. Otherwise there is no focal slowing, epileptiform discharges or seizure on the EEG - Labs CBC & Chem 7: 10/27/21 05:27 10/27/21 05:27 Labs: Abnormal Lab Results - Last 24 Hours (Table) 10/26/21 10/26/21 10/27/21 Range/Units 05:10 17:24 00:07 WBC (3.8-10.6) k/uL RBC (4.30-5.90) m/uL Hgb (13.0-17.5) gm/dL Hct (39.0-53.0) % MCV (80.0-100.0) fL MCHC (31.0-37.0) g/dL Neutrophils # (1.3-7.7) k/uL Lymphocytes # (1.0-4.8) k/uL ABG pH (7.35-7.45) ABG pCO2 (35-45) mmHg ABG pO2 (83-108) mmHg ABG HCO3 (21-25) mmol/L ABG Total CO2 (19-24) mmol/L Sodium (137-145) mmol/L Chloride (98-107) mmol/L BUN (9-20) mg/dL Creatinine (0.66-1.25) mg/dL Glucose (74-99) mg/dL POC Glucose (mg/dL) 130 H 200 H (75-99) mg/dL Calcium (8.4-10.2) mg/dL Magnesium (1.6-2.3) mg/dL Total Bilirubin (0.2-1.3) mg/dL AST (17-59) U/L Alkaline Phosphatase (38-126) U/L Total Protein (6.3-8.2) g/dL Albumin (3.5-5.0) g/dL Triglycerides 312.00 H (0.00-149.00) mg/dL VLDL Cholesterol, Calc 62.40 H (5.00-40.00) mg/dL HDL Cholesterol 7.90 L (40.00-60.00) mg/dL 10/27/21 10/27/21 10/27/21 Range/Units 05:27 05:27 05:28 WBC 12.2 H (3.8-10.6) k/uL RBC 3.20 L (4.30-5.90) m/uL Hgb 9.9 L (13.0-17.5) gm/dL Hct 32.8 L (39.0-53.0) % MCV 102.5 H (80.0-100.0) fL MCHC 30.3 L (31.0-37.0) g/dL Neutrophils # 10.9 H (1.3-7.7) k/uL Lymphocytes # 0.6 L (1.0-4.8) k/uL ABG pH (7.35-7.45) ABG pCO2 (35-45) mmHg ABG pO2 (83-108) mmHg ABG HCO3 (21-25) mmol/L ABG Total CO2 (19-24) mmol/L Sodium 150 H (137-145) mmol/L Chloride 114 H (98-107) mmol/L BUN 123 H* (9-20) mg/dL Creatinine 2.43 H (0.66-1.25) mg/dL Glucose 186 H (74-99) mg/dL POC Glucose (mg/dL) 192 H (75-99) mg/dL Calcium 7.6 L (8.4-10.2) mg/dL Magnesium (1.6-2.3) mg/dL Total Bilirubin 2.5 H (0.2-1.3) mg/dL AST 107 H (17-59) U/L Alkaline Phosphatase 168 H (38-126) U/L Total Protein 5.9 L (6.3-8.2) g/dL Albumin 2.3 L (3.5-5.0) g/dL Triglycerides (0.00-149.00) mg/dL VLDL Cholesterol, Calc (5.00-40.00) mg/dL HDL Cholesterol (40.00-60.00) mg/dL 10/27/21 10/27/21 10/27/21 Range/Units 05:33 05:57 11:41 WBC (3.8-10.6) k/uL RBC (4.30-5.90) m/uL Hgb (13.0-17.5) gm/dL Hct (39.0-53.0) % MCV (80.0-100.0) fL MCHC (31.0-37.0) g/dL Neutrophils # (1.3-7.7) k/uL Lymphocytes # (1.0-4.8) k/uL ABG pH 7.49 H (7.35-7.45) ABG pCO2 34 L (35-45) mmHg ABG pO2 77 L (83-108) mmHg ABG HCO3 26 H (21-25) mmol/L ABG Total CO2 27 H (19-24) mmol/L Sodium (137-145) mmol/L Chloride (98-107) mmol/L BUN (9-20) mg/dL Creatinine (0.66-1.25) mg/dL Glucose (74-99) mg/dL POC Glucose (mg/dL) 178 H (75-99) mg/dL Calcium (8.4-10.2) mg/dL Magnesium 2.4 H (1.6-2.3) mg/dL Total Bilirubin (0.2-1.3) mg/dL AST (17-59) U/L Alkaline Phosphatase (38-126) U/L Total Protein (6.3-8.2) g/dL Albumin (3.5-5.0) g/dL Triglycerides (0.00-149.00) mg/dL VLDL Cholesterol, Calc (5.00-40.00) mg/dL HDL Cholesterol (40.00-60.00) mg/dL Microbiology - Last 24 Hours (Table) 10/25/21 04:45 Gram Stain - Final Sputum Sputum Culture - Final 10/25/21 01:49 Blood Culture - Preliminary Blood No Growth after 48 hours 10/26/21 02:45 Gram Stain - Preliminary Throat Tissue Culture - Preliminary 10/25/21 23:40 Gram Stain - Preliminary Sputum Sputum Culture - Preliminary 10/23/21 05:50 Blood Culture Gram Stain - Preliminary Blood Blood Culture - Preliminary Presumptive Staph aureus Assessment and Plan Assessment: Acute to subacute ischemic stroke over the left fronto/parietal/occipital due to septic emboli Septic encephalopathy and component of metabolic encephalopathy. Also some medication use (sedation/Dilaudid). 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 Recommend avoiding any anticoagulation because of hemorrhagic emergency and the underlying management is IV antibiotic. Recommend CT angiography of the head to rule out any mycotic aneurysm. Currently cannot obtain because of kidney insufficiency. Recommend repeating CT head in 3 days or sooner if change in mentation. I'll defer modification of antibiotic to the ID team currently the patient is on nafcillin Continue to avoid hypotensive episodes. Cardiology and Cardiothoracic team are on board Nephrology is on board We'll defer the rest of the medical measure the primary team Condition: Critical. The plan is discussed with the patient's nurse. Ji Hernandez M.D. Neuro-Hospitalist Time with Patient: Less than 30
--- NOTE | 2021-10-27 13:58 | P.PN ---
Subjective Progress Note Date: 10/27/21 HISTORY OF PRESENT ILLNESS This is a 55-year-old male patient of Dr. Fischer with past medical history of diabetes mellitus on insulin pump, hypertension, seizure disorder, gastroesopha geal reflux disease, generalized anxiety disorder, tobacco use and dependence, alcohol abuse suspected. Patient is able to state that he has not felt well for 3 days and insulin pump is not in place. He is a poor historian and unable to give accurate information. Patient's is on her way to the hospital. He was brought in to the emergency center by EMS for generalized weakness. Patient was too weak apparently to get off the floor after a fall. Patient was found to be febrile at 101.6, heart rate 134, blood pressure 120/98, respiratory rate 36, pulse ox 99% on 2 L. WBC 9.8, hemoglobin 11.7, platelet count 140. Sodium 124, potassium 3.7, chloride 92, CO2 19, BUN 71 and creatinine 2.59. Blood sugar 331 and subsequent blood glucose 484 and 547. Lactic acid 1.8. Calcium 8.3. Magnesium 1.6. Troponin is 0.129. Albumin 3.4. AST 282, ALT 77, alkaline phosphatase 85. Influenza a not detected, influenza B not detected, RSV not detected, SARS Covid to not detected. Chest x-ray revealed no acute cardiopulmonary process. CAT scan of the brain revealed no acute process. Encephalomalacia of the right temporal lobe similar to 2018. Patient is seen today in the emergency center waiting for a bed, we will change bed assignment to intensive care unit, and additional lab work ordered including alcohol level, acetone, blood culture, consults added for cardiology for tachycardia, elevated troponins, flower picker for ICU management, neurology for metabolic encephalopathy and infectious disease. Patient started on empiric antibiotics with Zosyn, patient started on CIWA protocol. He is currently on bicarbonate drip with 1 amp 100 mL per hour. 10/22: Patient is in bed in moderate distress in the ICU, at the bedside. Per the the patient drinks approximately applied to the fifth daily. Patient is tachycardic/ tachypenic, urinary output 60 ML's per hour and indwelling catheter. Blood culture is positive for staph aureus. Blood gases on 32% show pO2 of 54, pCO2 34, and a pH is 7.42. He is currently high flow nasal cannula. At 10 L. He is also getting saline at 75 mL an hour, insulin at 9 units an hour, and norepinephrine at 2 mcg/m. His current antibiotics include vancomycin, daptomycin, and Zosyn. Currently white count 9.1, hemoglobin 10.1, hematocrit 31.1, and platelet count 99,000. Sodium 131, potassium 2.9, chl orides 99, CO2 22, BUN 73, and creatinine 2.89. Troponin levels were 0.129, and 0.162. Albumin is 2.4. 10/23: Patient is sedated at this time. Patient febrile with a temperature 100.9, heart rate 112, respirations 29, blood pressure 121/97, 98% on high flow nasal cannula 10 L. To Cecilia 11.5, hemoglobin 11.4, sodium 135, potassium 4.2, BUN 86, creatinine 3.56. Urine output 50 ML's per hour per indwelling catheter. He still getting saline at 75 ML's an hour, continue with IV antibiotics. Insulin drip until tomorrow. 10/24: Patient remains on low-dose sedation with Precedex and also receiving Ativan as needed. He is on insulin drip and on IV fluids at 75 mL/h. Cardiology has signed off his case. We will plan to transition off insulin drip to Levemir 25 units twice daily and 10 units of NovoLog every 6 hours along with NovoLog scale. WBC is 10.2, hemoglobin 11, platelet count 193. Sodium 142, potassium 3.6, chloride 109, CO2 18, BUN 101 and creatinine 2.85. Blood sugars are running between 130s - 187. ALT 112. Patient is status post IV Lasix 40 mg times once today potassium replaced. Echocardiogram reveals EF of 55-60% with moderate left ventricular hypertrophy, mild aortic stenosis with mean gradient of 13 mmHg, mild aortic regurgitation, mild tricuspid regurgitation, mild mitral regurgitation. 10/25: Patient remains in the intensive care unit. Patient was intubated by GABRIEL early a.m. due to tachypnea and lethargy. He also had tachycardia at that time and started on Cardizem drip per cardiology. He is currently on mechanical ventilation with tidal volume 400, FiO2 50 and PEEP of 5. He is on propofol and IV fluids only. He is continued on per Dr. Ashford. CAT scan of the brain, CRYSTAL, chest x-rays, blood cultures ordered. Temperature max 100.5, heart rate 113, blood pressure 97/55, pulse ox 95%. WBC 13.1, hemoglobin 9.7, platelet count 232. BUN 106, creatinine 2.6. Her blood glucose running between 90 and 115. All blood and urine cultures are showing staph aureus, MSSA. Chest x-ray this morning reveals pulmonary vascular congestion and small pleural effusions not significantly different from yesterday. 10/26: Patient remains in the ICU, intubated and on mechanical ventilation with tidal volume 400, FIO2 50% and PEEP of 5. Patient is on nafcillin per Dr Ashford. Patient has been afebrile greater than 24 hours, heart rate 88, respiratory rate 26, blood pressure 98/44, pulse ox 95%. WBC 13.6, hemoglobin 9.9, platelet count 255. Sodium 146, potassium 3.3, chloride 113, CO2 26, BUN 118, creatinine 2.4. Her blood glucose running between 144 and 244. Calcium 8, total bilirubin 1.5, AST 147, ALT 17, alkaline phosphatase 129. CT brain revealed interval development of left frontal and left parietal cortical and subcortical infarcts possibly representing watershed infarcts however embolic etiology cannot be excluded. Chest x-ray reveals some mild atelextasis left lung base. Improved aeration of lungs overall. Carotid US revealed mild homogeneous plaque w no significant hemodynamic stenosis. 10/27: CRYSTAL performed yesterday revealed evidence of vegetation involving the mitral valve. Discussed case with neurology and recommend cardiothoracic surgery consult which will be added. Patient remains in the intensive care unit intubated and on mechanical ventilation with tidal volume 400 FIO2 40, PEEP 5. PATIENT IS NOT ON VASOPRESSORS. ATTEMPTS ARE BEING MADE TODAY TO WEAN PATIENT OFF PROPOFOL. TUBE FEEDINGS HAVE BEEN STARTED. REPEAT BLOOD WORK REVEALS SODIUM 150, POTASSIUM 3.5, CHLORIDE 114, CO2 24, BUN 123, CREATININE 2.43. BLO OD SUGAR 186. WBC 12.2, HEMOGLOBIN 9.9, PLATELET COUNT 305. WE HAVE 1 REPEAT BLOOD CULTURE FROM 10/25 SHOWING NO GROWTH AT 48 HOURS. PREVIOUS BLOOD CULTURES ARE ALL PRESUMPTIVE STAPH AUREUS/MSSA. REVIEW OF SYSTEMS Unable to obtain due to patient's mental status/intubation. PHYSICAL EXAMINATION Gen: This is a morbidly obese 55-year-old male. Found in ICU bed newly intubated and on mechanical ventilation. HEENT: Head is atraumatic, normocephalic. Pupils equal, round. Sclerae is anicteric. NECK: Supple. No JVD. No lymphadenopathy. No thyromegaly. LUNGS: Diminished with a few scattered rhonchi. No intercostal retractions. HEART: Regular rate and rhythm. No murmur. ABDOMEN: Soft. Bowel sounds are present. No masses. No tenderness. EXTREMITIES: No pedal edema. No calf tenderness. SKIN: No skin lesions noted, no ulcers, no wounds, no areas of erythema. NEUROLOGICAL: Patient is sedated ASSESSMENT AND PLAN 1. 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 Consult with Dr. Ashford appreciated. Patient is currently on nafcillin IV piggyback every 4 hours, continue to monitor blood cultures, CRYSTAL scheduled. 2. Metabolic encephalopathy secondary to sepsis, DTs, DKA, acute kidney injury. Consult with neurology appreciated. 3. Delirium tremors. Patient started on CIWA protocol with Ativan, thiamine, obtain alcohol level. 4. DKA in patient with diabetes mellitus type 1 insulin requiring. Patient is not on insulin pump. Transition to insulin drip to Levemir 25 units twice daily, NovoLog 10 units every 6 hours and NovoLog scale . 5. Acute kidney injury with chronic kidney disease stage III. Consult with ne phrology appreciated. Nephrology is added IV Lasix 40 mg once today, 6. Anion gap metabolic acidosis secondary to acute kidney injury and DKA. Status post sodium bicarb. 7. Tachycardia most likely secondary to sepsis. Cardiology consult. 8. Elevated troponins, acute coronary syndrome ruled out. Cardiology consult appreciated and have signed off. 9. Thrombocytopenia most likely secondary to sepsis. Continue to monitor. 10. Hyponatremia. Nephrology following. 11. Acute hypoxic respiratory failure requiring intubation and mechanical ventilation, managed by pulmonary medicine. 12. 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 Consult with cardiothoracic surgery 13. Hypertension. Hold lisinopril 20 mg daily. 14. Dementia. Continue Aricept 10 mg daily. 15. Hyperlipidemia. Continue Lipitor 40 mg daily. 16. Gastroesophageal reflux disease and GI prophylaxis. Protonix 40 mg IV daily. 17. History of acute respiratory failure requiring intubation secondary to polysubstance abuse which included narcotics and alcohol. 18. History of liver cirrhosis secondary to alcohol abuse. 19. History of Seizure disorder. Patient does not appear to be on Keppra anymore. 20. Generalized anxiety disorder and recurrent depression. 20. Daily crack cocaine use. Prognosis poor. DISCHARGE PLAN To be determined. Impression and plan of care have been directed as dictated by the signing physician. Elizabeth Spicer nurse practitioner acting as scribe for signing physician. Objective - Vital Signs Vital signs: Vital Signs Temp 99.1 F 10/27/21 08:00 Pulse 86 10/27/21 13:00 Resp 22 10/27/21 13:00 BP 105/60 10/27/21 13:00 Pulse Ox 97 10/27/21 13:00 FiO2 50 10/27/21 12:00 Intake & Output 10/26/21 10/27/21 10/27/21 18:59 06:59 18:59 Intake Total 7596.928 5962.814 1750.414 Output Total 955 1190 685 Balance 588.972 476.915 8374.414 Weight 112.6 kg 113.2 kg Intake: IV 420 120 310 .9 @ 20 120 120 10 Nafcillin 2 gm In 300 300 Dextrose 5% in Water 100 ml @ 50 mls/hr IVPB Q4HR [facility] Rx#:[id number] Intake, IV Titration 203.972 266.814 706.414 Amount Dextrose 5% in Water 1, 600 000 ml @ 100 mls/hr IV . Q10H [facility] Rx#:[id number] propofoL 1,000 mg In 203.972 266.814 106.414 Empty Bag 1 bag @ 5 MCG/ KG/MIN 3.489 mls/hr IV . Q24H [facility] Rx#:[id number] Tube Feeding 290 420 234 Other 630 600 500 Output: Urine 955 1190 685 Other: Voiding Method Indwelling Catheter Indwelling Catheter Indwelling Catheter ABP, PAP, CO, CI - Last Documented Arterial Blood Pressure - Labs CBC & Chem 7: 10/27/21 05:27 10/27/21 05:27 Labs: Abnormal Lab Results - Last 24 Hours (Table) 10/26/21 10/26/21 10/27/21 Range/Units 05:10 17:24 00:07 WBC (3.8-10.6) k/uL RBC (4.30-5.90) m/uL Hgb (13.0-17.5) gm/dL Hct (39.0-53.0) % MCV (80.0-100.0) fL MCHC (31.0-37.0) g/dL Neutrophils # (1.3-7.7) k/uL Lymphocytes # (1.0-4.8) k/uL ABG pH (7.35-7.45) ABG pCO2 (35-45) mmHg ABG pO2 (83-108) mmHg ABG HCO3 (21-25) mmol/L ABG Total CO2 (19-24) mmol/L Sodium (137-145) mmol/L Chloride (98-107) mmol/L BUN (9-20) mg/dL Creatinine (0.66-1.25) mg/dL Glucose (74-99) mg/dL POC Glucose (mg/dL) 130 H 200 H (75-99) mg/dL Calcium (8.4-10.2) mg/dL Magnesium (1.6-2.3) mg/dL Total Bilirubin (0.2-1.3) mg/dL AST (17-59) U/L Alkaline Phosphatase (38-126) U/L Total Protein (6.3-8.2) g/dL Albumin (3.5-5.0) g/dL Triglycerides 312.00 H (0.00-149.00) mg/dL VLDL Cholesterol, Calc 62.40 H (5.00-40.00) mg/dL HDL Cholesterol 7.90 L (40.00-60.00) mg/dL 10/27/21 10/27/21 10/27/21 Range/Units 05:27 05:27 05:28 WBC 12.2 H (3.8-10.6) k/uL RBC 3.20 L (4.30-5.90) m/uL Hgb 9.9 L (13.0-17.5) gm/dL Hct 32.8 L (39.0-53.0) % MCV 102.5 H (80.0-100.0) fL MCHC 30.3 L (31.0-37.0) g/dL Neutrophils # 10.9 H (1.3-7.7) k/uL Lymphocytes # 0.6 L (1.0-4.8) k/uL ABG pH (7.35-7.45) ABG pCO2 (35-45) mmHg ABG pO2 (83-108) mmHg ABG HCO3 (21-25) mmol/L ABG Total CO2 (19-24) mmol/L Sodium 150 H (137-145) mmol/L Chloride 114 H (98-107) mmol/L BUN 123 H* (9-20) mg/dL Creatinine 2.43 H (0.66-1.25) mg/dL Glucose 186 H (74-99) mg/dL POC Glucose (mg/dL) 192 H (75-99) mg/dL Calcium 7.6 L (8.4-10.2) mg/dL Magnesium (1.6-2.3) mg/dL Total Bilirubin 2.5 H (0.2-1.3) mg/dL AST 107 H (17-59) U/L Alkaline Phosphatase 168 H (38-126) U/L Total Protein 5.9 L (6.3-8.2) g/dL Albumin 2.3 L (3.5-5.0) g/dL Triglycerides (0.00-149.00) mg/dL VLDL Cholesterol, Calc (5.00-40.00) mg/dL HDL Cholesterol (40.00-60.00) mg/dL 10/27/21 10/27/21 10/27/21 Range/Units 05:33 05:57 11:41 WBC (3.8-10.6) k/uL RBC (4.30-5.90) m/uL Hgb (13.0-17.5) gm/dL Hct (39.0-53.0) % MCV (80.0-100.0) fL MCHC (31.0-37.0) g/dL Neutrophils # (1.3-7.7) k/uL Lymphocytes # (1.0-4.8) k/uL ABG pH 7.49 H (7.35-7.45) ABG pCO2 34 L (35-45) mmHg ABG pO2 77 L (83-108) mmHg ABG HCO3 26 H (21-25) mmol/L ABG Total CO2 27 H (19-24) mmol/L Sodium (137-145) mmol/L Chloride (98-107) mmol/L BUN (9-20) mg/dL Creatinine (0.66-1.25) mg/dL Glucose (74-99) mg/dL POC Glucose (mg/dL) 178 H (75-99) mg/dL Calcium (8.4-10.2) mg/dL Magnesium 2.4 H (1.6-2.3) mg/dL Total Bilirubin (0.2-1.3) mg/dL AST (17-59) U/L Alkaline Phosphatase (38-126) U/L Total Protein (6.3-8.2) g/dL Albumin (3.5-5.0) g/dL Triglycerides (0.00-149.00) mg/dL VLDL Cholesterol, Calc (5.00-40.00) mg/dL HDL Cholesterol (40.00-60.00) mg/dL Microbiology - Last 24 Hours (Table) 10/25/21 23:40 Gram Stain - Preliminary Sputum Sputum Culture - Preliminary 10/25/21 04:45 Gram Stain - Final Sputum Sputum Culture - Final 10/25/21 01:49 Blood Culture - Preliminary Blood No Growth after 48 hours 10/26/21 02:45 Gram Stain - Preliminary Throat Tissue Culture - Preliminary 10/23/21 05:50 Blood Culture Gram Stain - Preliminary Blood Blood Culture - Preliminary Presumptive Staph aureus
--- NOTE | 2021-10-27 15:46 | P.PCN ---
Date of Procedure: 10/27/21 Preoperative Diagnosis: acute hypoxic respiratory failure Postoperative Diagnosis: acute hypoxic respiratory failure, delirium tremens, infective endocarditis Procedure(s) Performed: insertion of an arterial line Anesthesia: local Surgeon: Kisha Saucedo Pathology: other Condition: critical Disposition: ICU Operative Findings: Insertion of an arterial line Indication: Hemodynamic monitoring. A time-out was completed verifying correct patient, procedure, site, positionin g, and implant(s) or special equipment if applicable. Allens test was performed to ensure adequate perfusion. The patients left brachial was prepped and draped in sterile fashion. 1% Lidocaine was used to anesthetize the area. An 18G Arrow arterial line was introduced into the brachial artery. The catheter was threaded over the guide wire and the needle was removed with appropriate pulsatile blood return. Blood loss was minimal. The catheter was then sutured in place to the skin and a sterile dressing applied. Perfusion to the extremity distal to the point of catheter insertion was checked and found to be adequate. The patient tolerated the procedure well and there were no complications.
[2021-10-27 16:38] LABS: Glucose,Whole Blood 137 mg/dL (75-99)
[2021-10-27 17:03] LABS: Albumin 2.4 g/dL (3.5-5.0); Calcium 7.5 mg/dL (8.4-10.2); Potassium 3.5 mmol/L (3.5-5.1); Total Bilirubin 2.6 mg/dL (0.2-1.3); Total Protein 6.2 g/dL (6.3-8.2)
[2021-10-27] MEDS: LORazepam 2 MG/ML INJ IV PRN (20:28)
--- NOTE | 2021-10-27 22:19 | P.PN ---
Subjective Progress Note Date: 10/27/21 Principal diagnosis: Sepsis and bacteremia Patient is a 55-year-old male with a past medical history significant for insulin-dependent diabetes mellitus presented to hospital with weakness and mental status changes and elevated blood sugar, patient did have evidence of MSSA bacteremia. Patient did have a CRYSTAL completed on 10/26/2021 with evidence of mitral valve endocarditis On today's evaluation that is 10/27/2021, patient remains to be afebrile, the patient is hemodynamically stable not requiring any pressor support, the patient is intubated and FiO2 is stable at 40%, and no significant purulent secretion through the ET reported by the nursing staff and no diarrhea Objective - Vital Signs Vital signs: Vital Signs Temp 99.1 F 10/27/21 08:00 Pulse 87 10/27/21 12:18 Resp 26 H 10/27/21 12:18 BP 143/77 10/27/21 11:00 Pulse Ox 98 10/27/21 11:00 FiO2 40 10/27/21 11:57 Intake & Output 10/26/21 10/27/21 10/27/21 18:59 06:59 18:59 Intake Total 3045.614 8324.814 1172.414 Output Total 955 1190 545 Balance 588.972 216.814 627.414 Weight 112.6 kg 113.2 kg Intake: IV 420 120 310 .9 @ 20 120 120 10 Nafcillin 2 gm In 300 300 Dextrose 5% in Water 100 ml @ 50 mls/hr IVPB Q4HR [facility] Rx#:[id number] Intake, IV Titration 203.972 266.814 506.414 Amount Dextrose 5% in Water 1, 400 000 ml @ 100 mls/hr IV . Q10H [facility] Rx#:[id number] propofoL 1,000 mg In 203.972 266.814 106.414 Empty Bag 1 bag @ 5 MCG/ KG/MIN 3.489 mls/hr IV . Q24H [facility] Rx#:[id number] Tube Feeding 290 420 156 Other 630 600 200 Output: Urine 955 1190 545 Other: Voiding Method Indwelling Catheter Indwelling Catheter Indwelling Catheter ABP, PAP, CO, CI - Last Documented Arterial Blood Pressure - Exam GENERAL DESCRIPTION: Middle-aged male intubated on the vent RESPIRATORY SYSTEM: Unlabored breathing , decreased breath sounds at bases HEART: S1 S2 regular rate and rhythm , ABDOMEN: Soft , no tenderness EXTREMITIES: No edema feet - Labs CBC & Chem 7: 10/27/21 05:27 10/27/21 16:30 Labs: Abnormal Lab Results - Last 24 Hours (Table) 10/26/21 10/26/21 10/27/21 Range/Units 05:10 17:24 00:07 WBC (3.8-10.6) k/uL RBC (4.30-5.90) m/uL Hgb (13.0-17.5) gm/dL Hct (39.0-53.0) % MCV (80.0-100.0) fL MCHC (31.0-37.0) g/dL Neutrophils # (1.3-7.7) k/uL Lymphocytes # (1.0-4.8) k/uL ABG pH (7.35-7.45) ABG pCO2 (35-45) mmHg ABG pO2 (83-108) mmHg ABG HCO3 (21-25) mmol/L ABG Total CO2 (19-24) mmol/L Sodium (137-145) mmol/L Chloride (98-107) mmol/L BUN (9-20) mg/dL Creatinine (0.66-1.25) mg/dL Glucose (74-99) mg/dL POC Glucose (mg/dL) 130 H 200 H (75-99) mg/dL Calcium (8.4-10.2) mg/dL Magnesium (1.6-2.3) mg/dL Total Bilirubin (0.2-1.3) mg/dL AST (17-59) U/L Alkaline Phosphatase (38-126) U/L Total Protein (6.3-8.2) g/dL Albumin (3.5-5.0) g/dL Triglycerides 312.00 H (0.00-149.00) mg/dL VLDL Cholesterol, Calc 62.40 H (5.00-40.00) mg/dL HDL Cholesterol 7.90 L (40.00-60.00) mg/dL 10/27/21 10/27/21 10/27/21 Range/Units 05:27 05:27 05:28 WBC 12.2 H (3.8-10.6) k/uL RBC 3.20 L (4.30-5.90) m/uL Hgb 9.9 L (13.0-17.5) gm/dL Hct 32.8 L (39.0-53.0) % MCV 102.5 H (80.0-100.0) fL MCHC 30.3 L (31.0-37.0) g/dL Neutrophils # 10.9 H (1.3-7.7) k/uL Lymphocytes # 0.6 L (1.0-4.8) k/uL ABG pH (7.35-7.45) ABG pCO2 (35-45) mmHg ABG pO2 (83-108) mmHg ABG HCO3 (21-25) mmol/L ABG Total CO2 (19-24) mmol/L Sodium 150 H (137-145) mmol/L Chloride 114 H (98-107) mmol/L BUN 123 H* (9-20) mg/dL Creatinine 2.43 H (0.66-1.25) mg/dL Glucose 186 H (74-99) mg/dL POC Glucose (mg/dL) 192 H (75-99) mg/dL Calcium 7.6 L (8.4-10.2) mg/dL Magnesium (1.6-2.3) mg/dL Total Bilirubin 2.5 H (0.2-1.3) mg/dL AST 107 H (17-59) U/L Alkaline Phosphatase 168 H (38-126) U/L Total Protein 5.9 L (6.3-8.2) g/dL Albumin 2.3 L (3.5-5.0) g/dL Triglycerides (0.00-149.00) mg/dL VLDL Cholesterol, Calc (5.00-40.00) mg/dL HDL Cholesterol (40.00-60.00) mg/dL 10/27/21 10/27/21 10/27/21 Range/Units 05:33 05:57 11:41 WBC (3.8-10.6) k/uL RBC (4.30-5.90) m/uL Hgb (13.0-17.5) gm/dL Hct (39.0-53.0) % MCV (80.0-100.0) fL MCHC (31.0-37.0) g/dL Neutrophils # (1.3-7.7) k/uL Lymphocytes # (1.0-4.8) k/uL ABG pH 7.49 H (7.35-7.45) ABG pCO2 34 L (35-45) mmHg ABG pO2 77 L (83-108) mmHg ABG HCO3 26 H (21-25) mmol/L ABG Total CO2 27 H (19-24) mmol/L Sodium (137-145) mmol/L Chloride (98-107) mmol/L BUN (9-20) mg/dL Creatinine (0.66-1.25) mg/dL Glucose (74-99) mg/dL POC Glucose (mg/dL) 178 H (75-99) mg/dL Calcium (8.4-10.2) mg/dL Magnesium 2.4 H (1.6-2.3) mg/dL Total Bilirubin (0.2-1.3) mg/dL AST (17-59) U/L Alkaline Phosphatase (38-126) U/L Total Protein (6.3-8.2) g/dL Albumin (3.5-5.0) g/dL Triglycerides (0.00-149.00) mg/dL VLDL Cholesterol, Calc (5.00-40.00) mg/dL HDL Cholesterol (40.00-60.00) mg/dL Microbiology - Last 24 Hours (Table) 10/25/21 04:45 Gram Stain - Final Sputum Sputum Culture - Final 10/25/21 01:49 Blood Culture - Preliminary Blood No Growth after 48 hours 10/26/21 02:45 Gram Stain - Preliminary Throat Tissue Culture - Preliminary 10/25/21 23:40 Gram Stain - Preliminary Sputum Sputum Culture - Preliminary 10/23/21 05:50 Blood Culture Gram Stain - Preliminary Blood Blood Culture - Preliminary Presumptive Staph aureus Assessment and Plan (1) Bacteremia Current Visit: Yes Status: Acute Code(s): R78.81 - BACTEREMIA SNOMED Code(s): 4331098 Plan: 1patient presented to hospital with weakness in this patient did have a fever tachycardia meeting criteria for sepsis though initial work-up for a source has been negative with a negative UA chest x-ray did not show any acute abnormality patient abdominal was soft clinical examination and no evidence of any lower extremity cellulitis or joint swelling. Ultrasound negative for any hydronephrosis or cholecystitis 2patient did have persistent MSSA bacteremia concerning for endovascular source, CRYSTAL did shows evidence of mitral valve endocarditis, repeat blood culture had been negative, patient has been evaluated by CT surgery recommended no surgical intervention, patient to continue with Naficillin and monitor clinical course closely Time with Patient: Less than 30
[2021-10-27 23:49] LABS: Glucose,Whole Blood 147 mg/dL (75-99)
[2021-10-28] MEDS: NAFCILLIN 2 GM in DEXTROSE 5% IN WATER 100 ML IVPB SCH ×12 (00:02→21:03)
[2021-10-28] MEDS: ACETAMINOPHEN TAB 325 MG TAB PO PRN ×3 (00:06→14:39)
[2021-10-28] MEDS: NOREPINEPHRINE 4 MG in SODIUM CHLORIDE 0.9% 250 ML IV SCH ×2 (01:12→15:09)
[2021-10-28] MEDS: DILTIAZEM 125 MG in SODIUM CHLORIDE 0.9% 100 ML IV SCH (02:44)
[2021-10-28] MEDS: DEXMEDETOMIDINE/0.9% NACL(PMX) 400 MCG in EMPTY BAG 1 BAG IV SCH ×2 (03:45→07:58)
[2021-10-28] MEDS: DEXTROSE 5% IN WATER 1,000 ML IV SCH (03:45)
[2021-10-28 04:59] LABS: Basophils % (A) 0 %; Eosinophils # (A) 0.3 k/uL (0-0.7); Eosinophils % (A) 2 %; HGB 9.9 gm/dL (13.0-17.5); Hypochromasia Slight; Lymphocytes # (A) 0.8 k/uL (1.0-4.8); Lymphocytes % (A) 6 %; MCH 31.6 pg (25.0-35.0); MCV 102.2 fL (80.0-100.0); Macrocytosis Slight; Mean Platelet Volume 8.4; Monocytes # (A) 0.5 k/uL (0-1.0); Monocytes % (A) 4 %; Neutrophils # (A) 11.9 k/uL (1.3-7.7); Neutrophils % (A) 87 %; Platelet Count 327 k/uL (150-450); RBC 3.13 m/uL (4.30-5.90); RDW 14.6 % (11.5-15.5); WBC 13.7 k/uL (3.8-10.6)
[2021-10-28 05:20] LABS: Albumin 2.4 g/dL (3.5-5.0); Calcium 7.2 mg/dL (8.4-10.2); Potassium 3.4 mmol/L (3.5-5.1); Total Bilirubin 1.9 mg/dL (0.2-1.3); Total Protein 6.2 g/dL (6.3-8.2)
[2021-10-28 05:27] LABS: ABG Base Excess 2.7 mmol/L; ABG HCO3 27 mmol/L (21-25); ABG Oxygen Saturation 98.1 % (94-97); ABG PCO2 38 mmHg (35-45); ABG PH 7.46 (7.35-7.45); ABG PO2 89 mmHg (83-108); ABG TCO2 28 mmol/L (19-24); Allen Test Performed? Yes
[2021-10-28] MEDS ORDERED: Potassium Replacement Protocol 1 EACH MISC MISCELLANE PRN (05:55)
[2021-10-28 06:07] LABS: Glucose,Whole Blood 105 mg/dL (75-99)
[2021-10-28] MEDS: INSULIN ASPART (NovoLOG) 100 UNIT/ML VIAL SQ SCH ×6 (06:08→18:18)
[2021-10-28] MEDS: POTASSIUM BICARBONATE/CIT AC 20 MEQ TABLET.EFF NG-TUBE SCH ×2 (06:10→08:21)
[2021-10-28] MEDS: IPRATROPIUM-ALBUTEROL 3 ML NEB INHALATION SCH ×3 (07:26→20:33)
[2021-10-28] MEDS: PANTOPRAZOLE 40 MG/10 ML VIAL IVP SCH (08:21)
[2021-10-28] MEDS: CHLORHEXIDINE GLUCONATE 15 ML CUP MUCOUS MEM SCH ×2 (08:21→21:03)
[2021-10-28] MEDS: THIAMINE 100 MG/ML 2 ML VIAL IVP SCH ×2 (08:21→21:03)
[2021-10-28] MEDS: NICOTINE 21MG/24HR PATCH TRANSDERM SCH (08:22)
[2021-10-28] MEDS: HYDROmorphone 1 MG/ML 1 ML SYRINGE IVP PRN ×2 (08:31→21:25)
[2021-10-28] MEDS ORDERED: ADENOSINE 3 MG/ML 2 ML VIAL IVP ONE (08:45)
[2021-10-28] MEDS ORDERED: ATROPINE SULFATE 0.1 MG/ML 10ML SYRINGE ONE (08:48)
--- NOTE | 2021-10-28 08:51 | P.PN ---
Subjective Progress Note Date: 10/27/21 The patient is seen at bedside and per nurse he is more awake today He is tachypneic per nurse and agitated. He continues to be intubated, on ventilator and is on IV Precedex 1.2mcg/kg/hr. He continues to be febrile with Tmax today at 101.8 Objective - Vital Signs Vital signs: Vital Signs Temp 101.8 F H 10/28/21 08:00 Pulse 108 H 10/28/21 08:00 Resp 40 H 10/28/21 08:00 BP 118/64 10/27/21 16:00 Pulse Ox 92 L 10/28/21 08:00 FiO2 40 10/28/21 08:00 Intake & Output 10/27/21 10/28/21 10/28/21 18:59 06:59 18:59 Intake Total 2251.295 3268.088 171.15 Output Total 1035 1435 350 Balance 4781.246 8309.088 -178.85 Weight 113.2 kg 114.9 kg Intake: IV 310 1520 40 .9 @ 20 10 220 40 Dextrose 5% in Water 1, 1000 000 ml @ 100 mls/hr IV . [id number] [facility] with Sodium Bicarb (1 Meq/ml) 150 ml Rx#:[id number] Nafcillin 2 gm In 300 300 Dextrose 5% in Water 100 ml @ 50 mls/hr IVPB Q4HR [facility] Rx#:[id number] Intake, IV Titration 1090.295 380.088 53.15 Amount Dexmedetomidine/0.9% NaCl 83.881 146.850 53.15 (Pmx) 400 mcg In Empty Bag 1 bag @ 0.2 MCG/KG/HR 5.555 mls/hr IV .[id number] [facility] Rx#:[id number] Dextrose 5% in Water 1, 900 200 000 ml @ 100 mls/hr IV . Q10H [facility] Rx#:[id number] Norepinephrine 4 mg In 10.559 Sodium Chloride 0.9% 250 ml @ 0.05 MCG/KG/MIN 20. 306 mls/hr IV .[id number] [facility] Rx#:[id number] propofoL 1,000 mg In 106.414 22.679 0 Empty Bag 1 bag @ 5 MCG/ KG/MIN 3.489 mls/hr IV . Q24H [facility] Rx#:[id number] Tube Feeding 351 468 78 Other 500 900 Output: Urine 1035 1435 350 Other: Voiding Method Indwelling Catheter Indwelling Catheter ABP, PAP, CO, CI - Last Documented Arterial Blood Pressure 162/71 - Exam GENERAL: The patient is lying in bed and seems in seems to be in acute distress. LUNG: Intubated on ventilator. He is tachypneic. INTEGUMENTARY: Nail beds on the left hand has linear black discoloration/splinter hemorrhage. NEUROLOGICAL: Limited. Is currently on IV Precedex 1.2mcg/kg/hr. Higher mental function: The patient is awake. He is following one command (wiggling the right toes). No verbalizing. Cranial nerves: Primary gaze is midline. Pupils are 2mm and non-reactive bilaterally. No facial weakness. Is breathing over the vent. Rest is limited. Motor: The strength is hard to assess individual muscles because of cooperation. moving the right upper extremity and the left lower extremity above gravity. Wiggling his right toes. Sensation: Unable to assess light touch SOME OF THE WORK-UP DURING THIS HOSPITAL VISIT: CT head was ordered by primary team yesterday for altered mental status. It is reported as interval development of left frontal and left parietal cortical and subcortical infarct possibly representing watershed infarct however underlying embolic etiology cannot be excluded. I personally reviewed the CT of the head and I felt more embolic. And I agree was the different compared to the 10/20/2021. 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 No acute intracranial abnormality. Cervical atrophy. No change compared to yesterday. I personally reviewed it and I do agree the patient does have an old the right temporal from that an initial CT during this admission but the left parietal occipital I did not see it on the day prior and the left otherwise the patient has a left frontal parietal lesion seen from the prior Patient had a transesophageal echocardiogram: This reported as large vegetation involving the posterior mitral leaflet was smaller vegetation involving the anterior mitral leaflet with mild mitral regurgitation. Left ventricle systolic function is normal. There is a small atrioseptal defect noted with bilateral direct uroflow Carotid duplex is reported as mild homogeneous plaque with no significant hemodynamic stenosis visualized Routine EEG on 10/26/2021 is abnormal. The background slowing is suggestive of moderate encephalopathy. Otherwise there is no focal slowing, epileptiform discharges or seizure on the EEG - Labs CBC & Chem 7: 10/28/21 04:36 10/28/21 04:36 Labs: Abnormal Lab Results - Last 24 Hours (Table) 10/27/21 10/27/21 10/27/21 Range/Units 05:57 11:41 16:30 WBC (3.8-10.6) k/uL RBC (4.30-5.90) m/uL Hgb (13.0-17.5) gm/dL Hct (39.0-53.0) % MCV (80.0-100.0) fL Neutrophils # (1.3-7.7) k/uL Lymphocytes # (1.0-4.8) k/uL ABG pH (7.35-7.45) ABG HCO3 (21-25) mmol/L ABG Total CO2 (19-24) mmol/L ABG O2 Saturation (94-97) % Sodium 148 H (137-145) mmol/L Potassium (3.5-5.1) mmol/L Chloride 112 H (98-107) mmol/L BUN 126 H* (9-20) mg/dL Creatinine 2.30 H (0.66-1.25) mg/dL Glucose 150 H (74-99) mg/dL POC Glucose (mg/dL) 178 H (75-99) mg/dL Calcium 7.5 L (8.4-10.2) mg/dL Magnesium 2.4 H (1.6-2.3) mg/dL Total Bilirubin 2.6 H (0.2-1.3) mg/dL AST 90 H (17-59) U/L Alkaline Phosphatase 160 H (38-126) U/L Total Protein 6.2 L (6.3-8.2) g/dL Albumin 2.4 L (3.5-5.0) g/dL 10/27/21 10/27/21 10/28/21 Range/Units 16:35 23:47 04:36 WBC 13.7 H (3.8-10.6) k/uL RBC 3.13 L (4.30-5.90) m/uL Hgb 9.9 L (13.0-17.5) gm/dL Hct 32.0 L (39.0-53.0) % MCV 102.2 H (80.0-100.0) fL Neutrophils # 11.9 H (1.3-7.7) k/uL Lymphocytes # 0.8 L (1.0-4.8) k/uL ABG pH (7.35-7.45) ABG HCO3 (21-25) mmol/L ABG Total CO2 (19-24) mmol/L ABG O2 Saturation (94-97) % Sodium (137-145) mmol/L Potassium (3.5-5.1) mmol/L Chloride (98-107) mmol/L BUN (9-20) mg/dL Creatinine (0.66-1.25) mg/dL Glucose (74-99) mg/dL POC Glucose (mg/dL) 137 H 147 H (75-99) mg/dL Calcium (8.4-10.2) mg/dL Magnesium (1.6-2.3) mg/dL Total Bilirubin (0.2-1.3) mg/dL AST (17-59) U/L Alkaline Phosphatase (38-126) U/L Total Protein (6.3-8.2) g/dL Albumin (3.5-5.0) g/dL 10/28/21 10/28/21 10/28/21 Range/Units 04:36 05:25 06:06 WBC (3.8-10.6) k/uL RBC (4.30-5.90) m/uL Hgb (13.0-17.5) gm/dL Hct (39.0-53.0) % MCV (80.0-100.0) fL Neutrophils # (1.3-7.7) k/uL Lymphocytes # (1.0-4.8) k/uL ABG pH 7.46 H (7.35-7.45) ABG HCO3 27 H (21-25) mmol/L ABG Total CO2 28 H (19-24) mmol/L ABG O2 Saturation 98.1 H (94-97) % Sodium (137-145) mmol/L Potassium 3.4 L (3.5-5.1) mmol/L Chloride 110 H (98-107) mmol/L BUN 118 H* (9-20) mg/dL Creatinine 2.37 H (0.66-1.25) mg/dL Glucose 106 H (74-99) mg/dL POC Glucose (mg/dL) 105 H (75-99) mg/dL Calcium 7.2 L (8.4-10.2) mg/dL Magnesium (1.6-2.3) mg/dL Total Bilirubin 1.9 H (0.2-1.3) mg/dL AST 79 H (17-59) U/L Alkaline Phosphatase 146 H (38-126) U/L Total Protein 6.2 L (6.3-8.2) g/dL Albumin 2.4 L (3.5-5.0) g/dL Microbiology - Last 24 Hours (Table) 10/26/21 14:53 Blood Culture Gram Stain - Preliminary Blood 10/25/21 01:49 Blood Culture - Preliminary Blood No Growth after 72 hours 10/26/21 14:53 Blood Culture - Final Blood 10/26/21 14:44 Blood Culture - Final Blood 10/23/21 05:50 Blood Culture Gram Stain - Final Blood Blood Culture - Final Staphylococcus aureus 10/21/21 10:37 Blood Culture Gram Stain - Final Blood Blood Culture - Final Staphylococcus aureus 10/26/21 02:45 Gram Stain - Preliminary Throat Tissue Culture - Preliminary 10/25/21 23:40 Gram Stain - Preliminary Sputum Sputum Culture - Preliminary 10/25/21 04:45 Gram Stain - Final Sputum Sputum Culture - Final Assessment and Plan Assessment: Acute to subacute ischemic stroke over the left fronto/parietal/occipital due to septic emboli (from infective endocarditis) Septic encephalopathy and component of metabolic encephalopathy. Also some medication use (sedation)--mildly improving today compared to past two days. 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 Recommend avoiding any anticoagulation because of hemorrhagic emergency and the underlying management is IV antibiotic. Recommend CT angiography of the head to rule out any mycotic aneurysm. Currently cannot obtain because of kidney insufficiency. Recommend repeating CT head in 3 days or sooner if change in mentation. I'll defer modification of antibiotic to the ID team currently the patient is on nafcillin Continue to avoid hypotensive episodes. Cardiology and Cardiothoracic team are on board Nephrology is on board We'll defer the rest of the medical measure the primary team Condition: Critical. The plan is discussed with the patient's nurse. Ji Hernandez M.D. Neuro-Hospitalist Time with Patient: Less than 30
--- NOTE | 2021-10-28 08:59 | XR ---
EXAMINATION TYPE: XR chest 1V portable DATE OF EXAM: 10/28/2021 COMPARISON: 10/27/2021 HISTORY: Tube placement TECHNIQUE: Single frontal view of the chest is obtained. FINDINGS: ET and NG tube are stable. Central line stable bilateral infiltrate and small effusion. Co arsened interstitial and biapical pleural thickening. IMPRESSION: Bilateral lower lobe infiltrate and small effusion stable.
--- NOTE | 2021-10-28 09:25 | P.PN ---
Subjective Progress Note Date: 10/28/21 10/24/2021, [facility] patient for a follow-up in the patient is altered mentally and the patient is still going through delirium tremens. The patient is currently on Precedex running at 0.2 mcg/kg per minute. Note that the patient is a 55-year-old female patient with known history of diabetes mellitus type 1, hypertension, chronic kidney disease, COPD, dementia, alcohol abuse and crack cocaine abuse. Patient currently is calm and comfortable. Arousable. He is not following commands consistently. At times, gets restless and agitated and the Precedex dose being titrated by the nursing staff here in the intensive care unit. The patient remains on IV fluids with normal saline at the rate of 75 mL an hour. Urine output is adequate. The patient is currently not requiring any pressors. Overall fluid balance is +2.8 L over the past 24 hours and the patient remains on IV Solu regarding MSSA septicemia. Note that the patient's urine culture and blood culture both indicated MSSA. The patient is currently on 4 L about 2 by nasal cannula. The white cell count is at 10.2 with a hemoglobin of 11 and a platelet count of 193. At the same time, the patient has a sodium level of 142, serum bicarbonate is 18 with a BUN of 101 and a creatinine of 2.85 which is improved compared to yesterday. The total protein is at 5.6 with an albumin level of 2.5. The patient otherwise is resting comfortably in bed. No other significant events over the past 24 hours. Nephrology saw the patient and patient was switched from normal saline to a bicarb infusion to counteract his metabolic acidosis. Meanwhile, the patient on Levemir insulin 25 units twice a day and a NovoLog sliding scale coverage. He remains on Protonix. No other significant issues overnight. 10/25/2021, I'm seeing the patient for a follow-up. Events from yesterday evening were noted. The patient went into a tachycardic rhythm/sinus tachycardia versus SVT and the patient was quite lethargic, and unresponsive. He was breathing was also labored. That point, decided to proceed with intubation and the patient was intubated by the DIRECTOR MEDICAL SURGICAL overnight and he was placed on a mechanical ventilator. This morning, is converted back into normal sinus rhythm. His not receiving any effusions REGARDING his heart rate. He did receive Cardizem yesterday which was discontinued after the patient's potassium converted into normal sinus rhythm. He is currently on propofol running at 40 mg/kg per minute. He is calm and comfortable. He is quite cigarettes a mechanical ventilator. He is an assist-control mode of mechanical ventilation at the rate of 26 with an FiO2 of 50% with a PEEP of 5 and tidal volume of 400. Chest x-ray postintubation shows increased pulmonary vessel markings and pulmonary vessel congestion and edema. The blood gases from today shows a pH of 7.43 with a pCO2 of 37 and pO2 116 and this was done and FiO2 of 70%. Peak airway pressures around 18. The patient is on IV fluids at [facility]. He did receive bicarb infusion yesterday and his acid base status is improved considerably. White cell count of 15.1 with a hemoglobin above 7 and a platelet count of 232. Sodium is at 145 with a potassium level of 3.8 150 with a bicarb of 23. BUN is 106 and creatinine is at 2.6. Note that his renal function has improved compared to yesterday knowing that his creatinine from yesterday was at 2.8. The patient is currently nothing by mouth. He is well sedated. He is afebrile. He is on Levemir insulin 25 units twice a day along with a NovoLog sliding scale coverage. He is on IV cefazolin. Repeat cultures is again positive for gram-positive cocci and the patient is still persistently bacteremic and he herminio ins on IV Kefzol 2 g every 8 hours. The baseline echocardiogram transthoracic showed no evidence of any regurgitation, high likelihood for infective endocarditis in this patient. Comorbid conditions include type 1 diabetes mellitus, chronic kidney disease, COPD, dementia, alcoholism and crack cocaine use. He also has history of hypertension. 10/26/2021, the patient is being seen for a follow-up. The patient is currently still intubated on a mechanical ventilator and the patient is currently on propofol running at the rate of 30 milligrams per kilogram per minute. The patient's is grimacing to deep painful stimulation and he senses pain in all 4 extremities. Does not follow any commands at this point in time. A CAT scan of the brain was performed yesterday and there is a concern for septic emboli as the CAT scan of the brain showed interval development of a left frontal and parietal cortical and subcortical infarcts which could represent watershed infarct versus septic emboli. Neurology was again involved in the case and there were asked to reconsult on him. He is currently placed on aspirin. Carotid Dopplers are in progress. No seizure activity has been noted. On today's evaluation, the patient remains essentially the same mechanical ventilator setting with a rate of 26, tidal volume of 400, FiO2 of 50% with a PEEP of 5. Lung scan showed pH of 7.49 with a pCO2 of 37 and pO2 of 84. The chest x-ray from today shows adequate expansion of both lungs. ET tube is in a good location. No airspace disease or consolidation. In terms of cultures, the patient's positive blood cultures were consistent with MSSA and the patient was further switched from IV cefazolin to IV nafcillin per recommendations done by infectious disease. Cardiac rhythm is currently sinus and the patient is on no pressors. He is receiving enteral feeding for nutritional support and the sandrine ent is currently on Levemir 25 units twice a day along with a NovoLog sliding scale coverage. Note that overnight, the patient had an episode where he became quite restless and agitated and tachypneic. He also had some mild hypoxemia. He was suctioned and a large mucous plug was aspirated and Zosyn and also for cultures. As mentioned, the patient remains on IV nafcillin for now. No pressors at this point in time. He is afebrile. The plan for today is to proceed with a CRYSTAL. A carotid Doppler is also in progress. Overall fluid balance over the past 24 hours has been -1.4 L and the patient is receiving Lasix 40 m IV every 24 hours. Enterofeeding is in the form of vital high protein. Comorbid conditions include diabetes mellitus type 1, COPD, dementia, alcoholism, hypertension and crack cocaine use. His white cell count today is at 13.6 with a hemoglobin of 9.9. Sodium is 146, BUN is at 118 with a creatinine of 2.4 and as noted, the patient has a component of chronic kidney di sease. LFTs are stable at this point in time. Bilirubin is at 1.5 slightly higher yet AST is at 147 and ALT is at 17 with an alkaline phosphatase of 129. 10/27/2021, the patient remains intubated on mechanical ventilator. He is a case of infective endocarditis and this was confirmed by a CRYSTAL indicating vegetation involving the mitral valve. Overall clinical presentation is consistent with infective endocarditis secondary to underlying sepsis with septic emboli to the brain. CRYSTAL showed large vegetation involving the posterior mitral leaflet with a smaller vegetation involving the anterior mitral leaflet and mild degree of mitral regurgitation. LV function was essentially within normal limits. The patient was also found to have a small atrial septal defects. The patient is still on a mechanical ventilator. The patient is sedated currently with propofol running at 25 mcg/kg per minute. He is an assist-control mode of mechanical ventilation at the rate of 26 with a tidal volume of 400 and FiO2 of 40% with a PEEP of 5. Blood gases showed pH of 7.49 with a pCO2 of 34 and pO2 of 77. The chest x-ray from today is showing adequate positioning of the orotracheal tube. The patient has no evidence of any pneumothorax. The patient has stable left sided atelectasis/effusion along with some right perihilar haziness. Overall chest x-ray findings are essentially stable for now. He was dynamically he is on no pressors. He is maintaining his own blood pressure. His cardiac rhythm is sinus for now. In terms of his mental status, the patient will be given a sedation holiday today. A repeat CAT scan of the head was done yesterday and it showed anterior right temporal and l eft occipital lobe and left parietal lobe infarcts. No evidence of any intracranial hemorrhage. There is underlying cerebral atrophy. Underlying mental status will be evaluated after the patient is weaned off the propofol. Meanwhile, the repeat blood cultures from 10/25/2021 has shown no gross and the last positive blood culture was from 10/23/2021. The sputum Gram stain and culture is showing no microbial organisms for now. The patient remains on IV nafcillin for now. Terms of his fluid balance, the patient has been negative fluid balance of 1.2 L over the past 24 hours. His IV fluids are in the form of 0.9 at the rate of 10 mL an hour. His sodium level today is up 250 with a potas sium level of 3.5. The BUN is at 123 with a creatinine of 2.4 and a potassium level is at 3.5. Liver function tests remain mildly elevated in terms of the alkaline phosphatase. The bilirubin is also is on the rise at 2.5. The white cell count today is at 12.2 with a hemoglobin 9.9 and platelet count of 305. The patient is receiving enteral feeding for nutritional support and currently is on vital high protein at the rate of 39 mL an hour. He is febrile and low- grade fever 10/28/2021, I'm seeing the patient for a follow-up. Our concern was his ongoing mental status and I want to give the patient sedation holiday yesterday. I gradually asked the nurses to wean off the propofol and this was this patient to Precedex. We were able to do this switch and the patient was doing well till in the evening when he started getting quite agitated. At that point, I was contacted by the nursing staff and I asked the nurses to start back the propofol. However there was a concern with his blood pressure and probable was not started and the patient was kept only on Precedex. Earlier this morning, the patient was quite agitated. He was restless. He was tachypneic and tachycardic and he went into an SVT. During the process, he was given adenosine 6 mg IV and converted back into normal sinus rhythm. His mentation was fluctuating. He was evaluated by neurology and he was not following commands consistently. At that point, the patient was restarted back on propofol which is running at 50 mcg/kg per minute and the patient is currently off Precedex. His mentation is obviously still abnormal and it does not recovered. Meanwhile, the patient remains an assist-control mode of mechanical ventilation. He is on a rate of 26 with tidal volume of 400 and FiO2 of 40% with a PEEP of 5. Chest x-ray remains unchanged. ET tube remains inotropic and may need to be pushed and by around 1 cm. Meanwhile, the blood gases from today showed a pH of 7.46 with a pCO2 of 38 and pO2 of 89. His current cardiac rhythm is sinus. He is on low-dose pressors and the patient is on norepinephrine running at 0.01 mcg/kg per minute. He remains on IV nafcillin. Most recent blood cultures have shown persistent bacteremia as the blood culture from 10/26/2021 was again positive for gram-positive cocci which will cuff turner to be an MSSA. The rest of the blood work from today shows a white cell count of 13.7 with a hemoglobin around 9.9 and a platelet count of 327. The electrolytes are within normal limits. BUN is 118 and creatinine of 2.37 and the patient is known to have chronic kidney disease. Pro-calcitonin from 10/24/2021 was 55.5. He is on enteral feeding for nutritional support and he is currently receiving Vital HP rate of 39 mL an hour. The patient continues to be febrile with a T-max of 101.8. Objective - Vital Signs Vital signs: Vital Signs Temp 101.8 F H 10/28/21 08:00 Pulse 104 H 10/28/21 09:00 Resp 30 H 10/28/21 09:00 BP 118/64 10/27/21 16:00 Pulse Ox 94 L 10/28/21 09:00 FiO2 40 10/28/21 09:00 Intake & Output 10/27/21 10/28/21 10/28/21 18:59 06:59 18:59 Intake Total 2251.295 3268.088 230.15 Output Total 1035 1435 410 Balance 6596.380 0545.088 -179.85 Weight 113.2 kg 114.9 kg Intake: IV 310 1520 60 .9 @ 20 10 220 60 Dextrose 5% in Water 1, 1000 000 ml @ 100 mls/hr IV . [id number] MORGAN with Sodium Bicarb (1 Meq/ml) 150 ml Rx#:[id number] Nafcillin 2 gm In 300 300 Dextrose 5% in Water 100 ml @ 50 mls/hr IVPB Q4HR MORGAN Rx#:[id number] Intake, IV Titration 1090.295 380.088 53.15 Amount Dexmedetomidine/0.9% NaCl 83.881 146.850 53.15 (Pmx) 400 mcg In Empty Bag 1 bag @ 0.2 MCG/KG/HR 5.555 mls/hr IV .[id number] MORGAN Rx#:[id number] Dextrose 5% in Water 1, 900 200 000 ml @ 100 mls/hr IV . Q10H MORGAN Rx#:[id number] Norepinephrine 4 mg In 10.559 0 Sodium Chloride 0.9% 250 ml @ 0.05 MCG/KG/MIN 20. 306 mls/hr IV .[id number] MORGAN Rx#:[id number] propofoL 1,000 mg In 106.414 22.679 0 Empty Bag 1 bag @ 5 MCG/ KG/MIN 3.489 mls/hr IV . Q24H MORGAN Rx#:[id number] Tube Feeding 351 468 117 Other 500 900 Output: Urine 1035 1435 410 Other: Voiding Method Indwelling Catheter Indwelling Catheter ABP, PAP, CO, CI - Last Documented Arterial Blood Pressure 124/50 - Exam Sedated, currently on propofol, sedated and calm and comfortable, secondary to mechanical ventilator , Orotracheal and orogastric tube are both in place Head exam was generally normal. There was no scleral icterus or corneal arcus. Mucous membranes were moist. Neck was supple and without jugular venous distension, thyromegaly, or carotid bruits. Carotids were easily palpable bilaterally. There was no adenopathy. Cardiovascular examination reveals regular rhythm rate. S1-S2 normal. No S3 or S4. No discernible murmur noted. Lungs reveal scattered bilateral rhonchi. Breath sounds equal. No wheezes. Abdominal exam revealed normal bowel sounds. The abdomen was soft, non-tender, and without masses, organomegaly, or appreciable enlargement of the abdominal aorta. Extremities are intact. No cyanosis clubbing or edema. The patient does have some areas of ecchymotic spots in his fingers in the left hand involving the fourth and fifth digit and this is consistent with septic emboli. Skin is without rash or lesion. Neurologic examination is nonfocal and the patient is withdrawing to deep painful stimulation. Currently sedated with propofol. - Labs CBC & Chem 7: 10/28/21 04:36 10/28/21 04:36 Labs: Abnormal Lab Results - Last 24 Hours (Table) 10/27/21 10/27/21 10/27/21 Range/Units 05:57 11:41 16:30 WBC (3.8-10.6) k/uL RBC (4.30-5.90) m/uL Hgb (13.0-17.5) gm/dL Hct (39.0-53.0) % MCV (80.0-100.0) fL Neutrophils # (1.3-7.7) k/uL Lymphocytes # (1.0-4.8) k/uL ABG pH (7.35-7.45) ABG HCO3 (21-25) mmol/L ABG Total CO2 (19-24) mmol/L ABG O2 Saturation (94-97) % Sodium 148 H (137-145) mmol/L Potassium (3.5-5.1) mmol/L Chloride 112 H (98-107) mmol/L BUN 126 H* (9-20) mg/dL Creatinine 2.30 H (0.66-1.25) mg/dL Glucose 150 H (74-99) mg/dL POC Glucose (mg/dL) 178 H (75-99) mg/dL Calcium 7.5 L (8.4-10.2) mg/dL Magnesium 2.4 H (1.6-2.3) mg/dL Total Bilirubin 2.6 H (0.2-1.3) mg/dL AST 90 H (17-59) U/L Alkaline Phosphatase 160 H (38-126) U/L Total Protein 6.2 L (6.3-8.2) g/dL Albumin 2.4 L (3.5-5.0) g/dL 10/27/21 10/27/21 10/28/21 Range/Units 16:35 23:47 04:36 WBC 13.7 H (3.8-10.6) k/uL RBC 3.13 L (4.30-5.90) m/uL Hgb 9.9 L (13.0-17.5) gm/dL Hct 32.0 L (39.0-53.0) % MCV 102.2 H (80.0-100.0) fL Neutrophils # 11.9 H (1.3-7.7) k/uL Lymphocytes # 0.8 L (1.0-4.8) k/uL ABG pH (7.35-7.45) ABG HCO3 (21-25) mmol/L ABG Total CO2 (19-24) mmol/L ABG O2 Saturation (94-97) % Sodium (137-145) mmol/L Potassium (3.5-5.1) mmol/L Chloride (98-107) mmol/L BUN (9-20) mg/dL Creatinine (0.66-1.25) mg/dL Glucose (74-99) mg/dL POC Glucose (mg/dL) 137 H 147 H (75-99) mg/dL Calcium (8.4-10.2) mg/dL Magnesium (1.6-2.3) mg/dL Total Bilirubin (0.2-1.3) mg/dL AST (17-59) U/L Alkaline Phosphatase (38-126) U/L Total Protein (6.3-8.2) g/dL Albumin (3.5-5.0) g/dL 10/28/21 10/28/21 10/28/21 Range/Units 04:36 05:25 06:06 WBC (3.8-10.6) k/uL RBC (4.30-5.90) m/uL Hgb (13.0-17.5) gm/dL Hct (39.0-53.0) % MCV (80.0-100.0) fL Neutrophils # (1.3-7.7) k/uL Lymphocytes # (1.0-4.8) k/uL ABG pH 7.46 H (7.35-7.45) ABG HCO3 27 H (21-25) mmol/L ABG Total CO2 28 H (19-24) mmol/L ABG O2 Saturation 98.1 H (94-97) % Sodium (137-145) mmol/L Potassium 3.4 L (3.5-5.1) mmol/L Chloride 110 H (98-107) mmol/L BUN 118 H* (9-20) mg/dL Creatinine 2.37 H (0.66-1.25) mg/dL Glucose 106 H (74-99) mg/dL POC Glucose (mg/dL) 105 H (75-99) mg/dL Calcium 7.2 L (8.4-10.2) mg/dL Magnesium (1.6-2.3) mg/dL Total Bilirubin 1.9 H (0.2-1.3) mg/dL AST 79 H (17-59) U/L Alkaline Phosphatase 146 H (38-126) U/L Total Protein 6.2 L (6.3-8.2) g/dL Albumin 2.4 L (3.5-5.0) g/dL Microbiology - Last 24 Hours (Table) 10/26/21 14:53 Blood Culture Gram Stain - Preliminary Blood 10/25/21 01:49 Blood Culture - Preliminary Blood No Growth after 72 hours 10/26/21 14:53 Blood Culture - Final Blood 10/26/21 14:44 Blood Culture - Final Blood 10/23/21 05:50 Blood Culture Gram Stain - Final Blood Blood Culture - Final Staphylococcus aureus 10/21/21 10:37 Blood Culture Gram Stain - Final Blood Blood Culture - Final Staphylococcus aureus 10/26/21 02:45 Gram Stain - Preliminary Throat Tissue Culture - Preliminary 10/25/21 23:40 Gram Stain - Preliminary Sputum Sputum Culture - Preliminary 10/25/21 04:45 Gram Stain - Final Sputum Sputum Culture - Final Assessment and Plan Plan: Infective endocarditis. The patient was found to have large vegetation involving the posterior leaflet of the mitral valve along with some mild mitral regurgitation. This is a MSSA related infective endocarditis. The patient has persistent bacteremia and the most recent blood culture from 2021 was positive. The patient remains on nafcillin. The patient remains febrile. The patient is slightly hypotensive and currently is running a low dose pressors. Septic shock, MSSA, off vasopressors and the patient is currently maintaining his own blood pressure. The patient was found to have MSSA in the urine and in the blood. Note that the patient has been persistently bacteremic. Blood cultures on yesterday's since showing gram-positive cocci, currently on IV nafcillin. The patient is is running a low-grade fever. Hemodynamically stable. The most recent blood culture from 10/25/2021 was negative for any growth. Subsequent cultures from 10/26/2021 came back positive for gram- positive cocci. Septic emboli to the brain secondary to infective endocarditis. Acute hypoxic respiratory failure, currently intubated on a mechanical ventilator, chest x-ray and blood gases were noted Mental status changes, multifactorial, related to drug withdrawal and septic emboli with multi level infarct involving the frontal and the parietal and occipital lobes without any evidence of bleeding. The patient failed a sedation holiday yesterday. Actually this was a failed holiday as the patient's case was [place] by development of significant hemodynamic instability and SVT. He is back to normal sinus rhythm. He is back on propofol running at 50 mcg/kg per minute. Diabetic ketoacidosis , the patient is a component of DKA at time of admission. Currently the patient was on insulin drip and the patient was switched to long- acting insulin with Levemir 25 units twice a day and a sliding scale coverage. Delirium tremens IRIS on CKD, creatinine is stable for now History of type 1 diabetes mellitus, currently on Levemir insulin Anion gap metabolic acidosis, recovered Elevated troponin level. History of chronic kidney disease. History of COPD from ongoing and heavy tobacco use. History of dementia. History of chronic alcohol abuse, drinking 1/5 of vodka daily. Daily crack cocaine use. hypernatremia, currently on D5 water and the sodium level is down to 145. Plan Keep the patient ICU No ventilator changes for today Discontinue D5 water Patient propofol and avoid Precedex. He felt Precedex and we'll keep him on propofol at 50 mcg/kg per minute. Blood cultures are still positive and discussed the case with the cardiothoracic team and the patient is not a surgical candidate at this point in time. CAT scan of the brain was noted and the patient has multilevel infarct/optic emboli involving the right frontal and left temporal and parietal areas CRYSTAL noted Carotid Dopplers noted Continue IV nafcillin nutritional support long-acting insulin Levemir 25 units twice a day We'll continue to follow make further recommendations based on his progress. Prognosis remains extremely poor. Mental status to an alternative. The patient failed a sedation holiday. We'll have further discussion with the family. I met with the and with the parents separately. There is a constellation for comfort care measures with the next 24-48 hours if he shows no signs of improvement. We'll continue to follow. Critically care evaluation was done and morning and 30 minutes. The patient's critically ill. Family has been updated on his condition yesterday.
--- NOTE | 2021-10-28 10:16 | P.PN ---
Subjective Patient is seen in follow-up for acute kidney injury and chronic kidney disease. Renal function stable. Nonoliguric. Intubated. On 40% FiO2. Patient went into SVT this morning and received adenosine. On low-dose Levophed. Receiving tube feeds. On vasopressor support. NSVT. HEENT: Intubated. LUNGS: Breath sounds decreased. HEART: Tachycardic. ABDOMEN: Soft, no distention. EXTREMITITES: Trace edema. Objective - Vital Signs Vital signs: Vital Signs Temp 101.8 F H 10/28/21 08:00 Pulse 146 H 10/28/21 10:00 Resp 28 H 10/28/21 10:00 BP 118/64 10/27/21 16:00 Pulse Ox 98 10/28/21 10:00 FiO2 40 10/28/21 10:00 Intake & Output 10/27/21 10/28/21 10/28/21 18:59 06:59 18:59 Intake Total 2251.295 3268.088 317.849 Output Total 1035 1435 510 Balance 9097.097 7899.088 -192.151 Weight 113.2 kg 114.9 kg Intake: IV 310 1520 80 .9 @ 20 10 220 80 Dextrose 5% in Water 1, 1000 000 ml @ 100 mls/hr IV . [id number] [facility] with Sodium Bicarb (1 Meq/ml) 150 ml Rx#:[id number] Nafcillin 2 gm In 300 300 Dextrose 5% in Water 100 ml @ 50 mls/hr IVPB Q4HR [facility] Rx#:[id number] Intake, IV Titration 1090.295 380.088 81.849 Amount Dexmedetomidine/0.9% NaCl 83.881 146.850 53.15 (Pmx) 400 mcg In Empty Bag 1 bag @ 0.2 MCG/KG/HR 5.555 mls/hr IV .[id number] [facility] Rx#:[id number] Dextrose 5% in Water 1, 900 200 000 ml @ 100 mls/hr IV . Q10H [facility] Rx#:[id number] Norepinephrine 4 mg In 10.559 15.906 Sodium Chloride 0.9% 250 ml @ 0.05 MCG/KG/MIN 20. 306 mls/hr IV .[id number] [facility] Rx#:[id number] propofoL 1,000 mg In 106.414 22.679 12.793 Empty Bag 1 bag @ 5 MCG/ KG/MIN 3.489 mls/hr IV . Q24H [facility] Rx#:[id number] Tube Feeding 351 468 156 Other 500 900 Output: Urine 1035 1435 510 Other: Voiding Method Indwelling Catheter Indwelling Catheter ABP, PAP, CO, CI - Last Documented Arterial Blood Pressure 129/57 - Labs CBC & Chem 7: 10/28/21 04:36 10/28/21 04:36 Labs: Abnormal Lab Results - Last 24 Hours (Table) 10/27/21 10/27/21 10/27/21 Range/Units 11:41 16:30 16:35 WBC (3.8-10.6) k/uL RBC (4.30-5.90) m/uL Hgb (13.0-17.5) gm/dL Hct (39.0-53.0) % MCV (80.0-100.0) fL Neutrophils # (1.3-7.7) k/uL Lymphocytes # (1.0-4.8) k/uL ABG pH (7.35-7.45) ABG HCO3 (21-25) mmol/L ABG Total CO2 (19-24) mmol/L ABG O2 Saturation (94-97) % Sodium 148 H (137-145) mmol/L Potassium (3.5-5.1) mmol/L Chloride 112 H (98-107) mmol/L BUN 126 H* (9-20) mg/dL Creatinine 2.30 H (0.66-1.25) mg/dL Glucose 150 H (74-99) mg/dL POC Glucose (mg/dL) 178 H 137 H (75-99) mg/dL Calcium 7.5 L (8.4-10.2) mg/dL Total Bilirubin 2.6 H (0.2-1.3) mg/dL AST 90 H (17-59) U/L Alkaline Phosphatase 160 H (38-126) U/L Total Protein 6.2 L (6.3-8.2) g/dL Albumin 2.4 L (3.5-5.0) g/dL 10/27/21 10/28/21 10/28/21 Range/Units 23:47 04:36 04:36 WBC 13.7 H (3.8-10.6) k/uL RBC 3.13 L (4.30-5.90) m/uL Hgb 9.9 L (13.0-17.5) gm/dL Hct 32.0 L (39.0-53.0) % MCV 102.2 H (80.0-100.0) fL Neutrophils # 11.9 H (1.3-7.7) k/uL Lymphocytes # 0.8 L (1.0-4.8) k/uL ABG pH (7.35-7.45) ABG HCO3 (21-25) mmol/L ABG Total CO2 (19-24) mmol/L ABG O2 Saturation (94-97) % Sodium (137-145) mmol/L Potassium 3.4 L (3.5-5.1) mmol/L Chloride 110 H (98-107) mmol/L BUN 118 H* (9-20) mg/dL Creatinine 2.37 H (0.66-1.25) mg/dL Glucose 106 H (74-99) mg/dL POC Glucose (mg/dL) 147 H (75-99) mg/dL Calcium 7.2 L (8.4-10.2) mg/dL Total Bilirubin 1.9 H (0.2-1.3) mg/dL AST 79 H (17-59) U/L Alkaline Phosphatase 146 H (38-126) U/L Total Protein 6.2 L (6.3-8.2) g/dL Albumin 2.4 L (3.5-5.0) g/dL 10/28/21 10/28/21 Range/Units 05:25 06:06 WBC (3.8-10.6) k/uL RBC (4.30-5.90) m/uL Hgb (13.0-17.5) gm/dL Hct (39.0-53.0) % MCV (80.0-100.0) fL Neutrophils # (1.3-7.7) k/uL Lymphocytes # (1.0-4.8) k/uL ABG pH 7.46 H (7.35-7.45) ABG HCO3 27 H (21-25) mmol/L ABG Total CO2 28 H (19-24) mmol/L ABG O2 Saturation 98.1 H (94-97) % Sodium (137-145) mmol/L Potassium (3.5-5.1) mmol/L Chloride (98-107) mmol/L BUN (9-20) mg/dL Creatinine (0.66-1.25) mg/dL Glucose (74-99) mg/dL POC Glucose (mg/dL) 105 H (75-99) mg/dL Calcium (8.4-10.2) mg/dL Total Bilirubin (0.2-1.3) mg/dL AST (17-59) U/L Alkaline Phosphatase (38-126) U/L Total Protein (6.3-8.2) g/dL Albumin (3.5-5.0) g/dL Microbiology - Last 24 Hours (Table) 10/26/21 14:44 Blood Culture Gram Stain - Preliminary Blood 10/26/21 14:53 Blood Culture Gram Stain - Preliminary Blood 10/25/21 01:49 Blood Culture - Preliminary Blood No Growth after 72 hours 10/26/21 14:53 Blood Culture - Final Blood 10/26/21 14:44 Blood Culture - Final Blood 10/23/21 05:50 Blood Culture Gram Stain - Final Blood Blood Culture - Final Staphylococcus aureus 10/21/21 10:37 Blood Culture Gram Stain - Final Blood Blood Culture - Final Staphylococcus aureus 10/26/21 02:45 Gram Stain - Preliminary Throat Tissue Culture - Preliminary 10/25/21 23:40 Gram Stain - Preliminary Sputum Sputum Culture - Preliminary 10/25/21 04:45 Gram Stain - Final Sputum Sputum Culture - Final Assessment and Plan Plan: Assessment: 1. Acute kidney injury secondary to ATN secondary to septic shock. Creatinine was 2.59 on admission and peaked at 3.56 this admission - stable at 2.37 today. Nonoliguric. No hydronephrosis noted on kidney ultrasound. Elevated BUN secondary to hypercatabolic state. Not on steroids. No evidence of GI bleed. 2. Septic shock secondary to staph aureus UTI and bacteremia on antibiotics. Infectious disease following. 3. Chronic kidney disease stage IIIA with baseline creatinine in the range of 1.5-1.7 secondary to diabetic kidney disease. 4. Metabolic acidosis secondary to acute kidney injury and IV fluids. Status post bicarb drip. Improved. 5. Hypernatremia from lack of oral water intake. Improved. 6. Hypokalemia from poor intake. Being replaced. 7. Diabetes mellitus. Serum acetone positive. Status post insulin drip. 8. Volume overload. Status post diuresis. Better. 9. A. fib with RVR. Status post cardizem drip. Currently in SVT. Cardiology following. Plan: Continue to hold diuretics. Increase free water flushes to 400 mL every 6 hours with tube feeds. Stop D5W. Avoid nephrotoxins. Continue to monitor renal function and urine output. Preserved ejection fraction with moderate LVH noted on echocardiogram. Phosphorus 3.5 dated 10/24/21. Potassium being replaced per protocol. Wean FiO2.
[2021-10-28] MEDS ORDERED: DEXTROSE 5% IN WATER 100 ML with AMIODARONE 150 MG IV ONE ×2 (10:47→11:10)
[2021-10-28] MEDS: AMIODARONE 360 MG in DEXTROSE 5% IN WATER 200 ML IV SCH ×6 (11:24→23:07)
[2021-10-28 11:37] LABS: Glucose,Whole Blood 216 mg/dL (75-99)
[2021-10-28] MEDS: INSULIN DETEMIR (LEVEMIR) 100 UNIT/ML SYR SQ SCH ×2 (11:40→21:03)
--- NOTE | 2021-10-28 12:44 | P.PN ---
Subjective Patient went into a tachycardic episode associated with hypertension Initiate look like atrial tachycardia as I watched the monitor he suddenly conv erted to sinus rhythm. Later he went back again to atrial tachycardia He has staph sepsis and his overall prognosis is very poor From a cardiac standpoint I will start him on IV amiodarone His blood pressure normalizes when he is in sinus rhythm and therefore there is no need for Levophed hopefully once amiodarone takes effect Continue amiodarone for suppression of atrial tachycardia Further management per ICU team Patient remains intubated and IV] Objective - Vital Signs Vital signs: Vital Signs Temp 102.7 F H 10/28/21 11:00 Pulse 110 H 10/28/21 12:00 Resp 32 H 10/28/21 12:00 BP 118/64 10/27/21 16:00 Pulse Ox 96 10/28/21 12:00 FiO2 40 10/28/21 12:00 Intake & Output 10/27/21 10/28/21 10/28/21 18:59 06:59 18:59 Intake Total 2251.295 3268.088 835.849 Output Total 1035 1435 720 Balance 5727.470 9158.088 115.849 Weight 113.2 kg 114.9 kg Intake: IV 310 1520 120 .9 @ 20 10 220 120 Dextrose 5% in Water 1, 1000 000 ml @ 100 mls/hr IV . [id number] [facility] with Sodium Bicarb (1 Meq/ml) 150 ml Rx#:[id number] Nafcillin 2 gm In 300 300 Dextrose 5% in Water 100 ml @ 50 mls/hr IVPB Q4HR [facility] Rx#:[id number] Intake, IV Titration 1090.295 380.088 81.849 Amount Dexmedetomidine/0.9% NaCl 83.881 146.850 53.15 (Pmx) 400 mcg In Empty Bag 1 bag @ 0.2 MCG/KG/HR 5.555 mls/hr IV .[id number] [facility] Rx#:[id number] Dextrose 5% in Water 1, 900 200 000 ml @ 100 mls/hr IV . Q10H [facility] Rx#:[id number] Norepinephrine 4 mg In 10.559 15.906 Sodium Chloride 0.9% 250 ml @ 0.05 MCG/KG/MIN 20. 306 mls/hr IV .[id number] [facility] Rx#:[id number] propofoL 1,000 mg In 106.414 22.679 12.793 Empty Bag 1 bag @ 5 MCG/ KG/MIN 3.489 mls/hr IV . Q24H [facility] Rx#:[id number] Tube Feeding 351 468 234 Other 500 900 400 Output: Urine 1035 1435 720 Other: Voiding Method Indwelling Catheter Indwelling Catheter Indwelling Catheter ABP, PAP, CO, CI - Last Documented Arterial Blood Pressure 131/53 - Labs CBC & Chem 7: 10/28/21 04:36 10/28/21 04:36 Labs: Abnormal Lab Results - Last 24 Hours (Table) 10/27/21 10/27/21 10/27/21 Range/Units 16:30 16:35 23:47 WBC (3.8-10.6) k/uL RBC (4.30-5.90) m/uL Hgb (13.0-17.5) gm/dL Hct (39.0-53.0) % MCV (80.0-100.0) fL Neutrophils # (1.3-7.7) k/uL Lymphocytes # (1.0-4.8) k/uL ABG pH (7.35-7.45) ABG HCO3 (21-25) mmol/L ABG Total CO2 (19-24) mmol/L ABG O2 Saturation (94-97) % Sodium 148 H (137-145) mmol/L Potassium (3.5-5.1) mmol/L Chloride 112 H (98-107) mmol/L BUN 126 H* (9-20) mg/dL Creatinine 2.30 H (0.66-1.25) mg/dL Glucose 150 H (74-99) mg/dL POC Glucose (mg/dL) 137 H 147 H (75-99) mg/dL Calcium 7.5 L (8.4-10.2) mg/dL Total Bilirubin 2.6 H (0.2-1.3) mg/dL AST 90 H (17-59) U/L Alkaline Phosphatase 160 H (38-126) U/L Total Protein 6.2 L (6.3-8.2) g/dL Albumin 2.4 L (3.5-5.0) g/dL 10/28/21 10/28/21 10/28/21 Range/Units 04:36 04:36 05:25 WBC 13.7 H (3.8-10.6) k/uL RBC 3.13 L (4.30-5.90) m/uL Hgb 9.9 L (13.0-17.5) gm/dL Hct 32.0 L (39.0-53.0) % MCV 102.2 H (80.0-100.0) fL Neutrophils # 11.9 H (1.3-7.7) k/uL Lymphocytes # 0.8 L (1.0-4.8) k/uL ABG pH 7.46 H (7.35-7.45) ABG HCO3 27 H (21-25) mmol/L ABG Total CO2 28 H (19-24) mmol/L ABG O2 Saturation 98.1 H (94-97) % Sodium (137-145) mmol/L Potassium 3.4 L (3.5-5.1) mmol/L Chloride 110 H (98-107) mmol/L BUN 118 H* (9-20) mg/dL Creatinine 2.37 H (0.66-1.25) mg/dL Glucose 106 H (74-99) mg/dL POC Glucose (mg/dL) (75-99) mg/dL Calcium 7.2 L (8.4-10.2) mg/dL Total Bilirubin 1.9 H (0.2-1.3) mg/dL AST 79 H (17-59) U/L Alkaline Phosphatase 146 H (38-126) U/L Total Protein 6.2 L (6.3-8.2) g/dL Albumin 2.4 L (3.5-5.0) g/dL 10/28/21 10/28/21 Range/Units 06:06 11:35 WBC (3.8-10.6) k/uL RBC (4.30-5.90) m/uL Hgb (13.0-17.5) gm/dL Hct (39.0-53.0) % MCV (80.0-100.0) fL Neutrophils # (1.3-7.7) k/uL Lymphocytes # (1.0-4.8) k/uL ABG pH (7.35-7.45) ABG HCO3 (21-25) mmol/L ABG Total CO2 (19-24) mmol/L ABG O2 Saturation (94-97) % Sodium (137-145) mmol/L Potassium (3.5-5.1) mmol/L Chloride (98-107) mmol/L BUN (9-20) mg/dL Creatinine (0.66-1.25) mg/dL Glucose (74-99) mg/dL POC Glucose (mg/dL) 105 H 216 H (75-99) mg/dL Calcium (8.4-10.2) mg/dL Total Bilirubin (0.2-1.3) mg/dL AST (17-59) U/L Alkaline Phosphatase (38-126) U/L Total Protein (6.3-8.2) g/dL Albumin (3.5-5.0) g/dL Microbiology - Last 24 Hours (Table) 10/25/21 23:40 Gram Stain - Final Sputum Sputum Culture - Final 10/26/21 14:44 Blood Culture Gram Stain - Preliminary Blood 10/26/21 14:53 Blood Culture Gram Stain - Preliminary Blood 10/25/21 01:49 Blood Culture - Preliminary Blood No Growth after 72 hours 10/26/21 14:53 Blood Culture - Final Blood 10/26/21 14:44 Blood Culture - Final Blood 10/23/21 05:50 Blood Culture Gram Stain - Final Blood Blood Culture - Final Staphylococcus aureus 10/21/21 10:37 Blood Culture Gram Stain - Final Blood Blood Culture - Final Staphylococcus aureus 10/26/21 02:45 Gram Stain - Preliminary Throat Tissue Culture - Preliminary 10/25/21 04:45 Gram Stain - Final Sputum Sputum Culture - Final
--- NOTE | 2021-10-28 13:28 | P.PN ---
Subjective Progress Note Date: 10/28/21 HISTORY OF PRESENT ILLNESS This is a 55-year-old male patient of Dr. Fischer with past medical history of diabetes mellitus on insulin pump, hypertension, seizure disorder, gastroesopha geal reflux disease, generalized anxiety disorder, tobacco use and dependence, alcohol abuse suspected. Patient is able to state that he has not felt well for 3 days and insulin pump is not in place. He is a poor historian and unable to give accurate information. Patient's is on her way to the hospital. He was brought in to the emergency center by EMS for generalized weakness. Patient was too weak apparently to get off the floor after a fall. Patient was found to be febrile at 101.6, heart rate 134, blood pressure 120/98, respiratory rate 36, pulse ox 99% on 2 L. WBC 9.8, hemoglobin 11.7, platelet count 140. Sodium 124, potassium 3.7, chloride 92, CO2 19, BUN 71 and creatinine 2.59. Blood sugar 331 and subsequent blood glucose 484 and 547. Lactic acid 1.8. Calcium 8.3. Magnesium 1.6. Troponin is 0.129. Albumin 3.4. AST 282, ALT 77, alkaline phosphatase 85. Influenza a not detected, influenza B not detected, RSV not detected, SARS Covid to not detected. Chest x-ray revealed no acute cardiopulmonary process. CAT scan of the brain revealed no acute process. Encephalomalacia of the right temporal lobe similar to 2018. Patient is seen today in the emergency center waiting for a bed, we will change bed assignment to intensive care unit, and additional lab work ordered including alcohol level, acetone, blood culture, consults added for cardiology for tachycardia, elevated troponins, lunchroom supervisor for ICU management, neurology for metabolic encephalopathy and infectious disease. Patient started on empiric antibiotics with Zosyn, patient started on CIWA protocol. He is currently on bicarbonate drip with 1 amp 100 mL per hour. 10/22: Patient is in bed in moderate distress in the ICU, at the bedside. Per the the patient drinks approximately applied to the fifth daily. Patient is tachycardic/ tachypenic, urinary output 60 ML's per hour and indwelling catheter. Blood culture is positive for staph aureus. Blood gases on 32% show pO2 of 54, pCO2 34, and a pH is 7.42. He is currently high flow nasal cannula. At 10 L. He is also getting saline at 75 mL an hour, insulin at 9 units an hour, and norepinephrine at 2 mcg/m. His current antibiotics include vancomycin, daptomycin, and Zosyn. Currently white count 9.1, hemoglobin 10.1, hematocrit 31.1, and platelet count 99,000. Sodium 131, potassium 2.9, chl orides 99, CO2 22, BUN 73, and creatinine 2.89. Troponin levels were 0.129, and 0.162. Albumin is 2.4. 10/23: Patient is sedated at this time. Patient febrile with a temperature 100.9, heart rate 112, respirations 29, blood pressure 121/97, 98% on high flow nasal cannula 10 L. To Cecilia 11.5, hemoglobin 11.4, sodium 135, potassium 4.2, BUN 86, creatinine 3.56. Urine output 50 ML's per hour per indwelling catheter. He still getting saline at 75 ML's an hour, continue with IV antibiotics. Insulin drip until tomorrow. 10/24: Patient remains on low-dose sedation with Precedex and also receiving Ativan as needed. He is on insulin drip and on IV fluids at 75 mL/h. Cardiology has signed off his case. We will plan to transition off insulin drip to Levemir 25 units twice daily and 10 units of NovoLog every 6 hours along with NovoLog scale. WBC is 10.2, hemoglobin 11, platelet count 193. Sodium 142, potassium 3.6, chloride 109, CO2 18, BUN 101 and creatinine 2.85. Blood sugars are running between 130s - 187. ALT 112. Patient is status post IV Lasix 40 mg times once today potassium replaced. Echocardiogram reveals EF of 55-60% with moderate left ventricular hypertrophy, mild aortic stenosis with mean gradient of 13 mmHg, mild aortic regurgitation, mild tricuspid regurgitation, mild mitral regurgitation. 10/25: Patient remains in the intensive care unit. Patient was intubated by GABRIEL early a.m. due to tachypnea and lethargy. He also had tachycardia at that time and started on Cardizem drip per cardiology. He is currently on mechanical ventilation with tidal volume 400, FiO2 50 and PEEP of 5. He is on propofol and IV fluids only. He is continued on per Dr. Ashford. CAT scan of the brain, CRYSTAL, chest x-rays, blood cultures ordered. Temperature max 100.5, heart rate 113, blood pressure 97/55, pulse ox 95%. WBC 13.1, hemoglobin 9.7, platelet count 232. BUN 106, creatinine 2.6. Her blood glucose running between 90 and 115. All blood and urine cultures are showing staph aureus, MSSA. Chest x-ray this morning reveals pulmonary vascular congestion and small pleural effusions not significantly different from yesterday. 10/26: Patient remains in the ICU, intubated and on mechanical ventilation with tidal volume 400, FIO2 50% and PEEP of 5. Patient is on nafcillin per Dr Ashford. Patient has been afebrile greater than 24 hours, heart rate 88, respiratory rate 26, blood pressure 98/44, pulse ox 95%. WBC 13.6, hemoglobin 9.9, platelet count 255. Sodium 146, potassium 3.3, chloride 113, CO2 26, BUN 118, creatinine 2.4. Her blood glucose running between 144 and 244. Calcium 8, total bilirubin 1.5, AST 147, ALT 17, alkaline phosphatase 129. CT brain revealed interval development of left frontal and left parietal cortical and subcortical infarcts possibly representing watershed infarcts however embolic etiology cannot be excluded. Chest x-ray reveals some mild atelextasis left lung base. Improved aeration of lungs overall. Carotid US revealed mild homogeneous plaque w no significant hemodynamic stenosis. 10/27: CRYSTAL performed yesterday revealed evidence of vegetation involving the mitral valve. Discussed case with neurology and recommend cardiothoracic surgery consult which will be added. Patient remains in the intensive care unit intubated and on mechanical ventilation with tidal volume 400 FIO2 40, PEEP 5. PATIENT IS NOT ON VASOPRESSORS. ATTEMPTS ARE BEING MADE TODAY TO WEAN PATIENT OFF PROPOFOL. TUBE FEEDINGS HAVE BEEN STARTED. REPEAT BLOOD WORK REVEALS SODIUM 150, POTASSIUM 3.5, CHLORIDE 114, CO2 24, BUN 123, CREATININE 2.43. BLO OD SUGAR 186. WBC 12.2, HEMOGLOBIN 9.9, PLATELET COUNT 305. WE HAVE 1 REPEAT BLOOD CULTURE FROM 10/25 SHOWING NO GROWTH AT 48 HOURS. PREVIOUS BLOOD CULTURES ARE ALL PRESUMPTIVE STAPH AUREUS/MSSA. 10/28: patient remains in the intensive care unit on mechanical ventilation with tidal volume 400, FiO2 40 and PEEP of 5. patient was nearly off sedation this morning and was able to move the right arm and the right foot but not the left side. He also went into SVT initially hypertensive and then hypotensive, status post adenosine. Cardiology is planning to continue patient on amiodarone. neurology has recommended CT angiogram of the head to rule out any mycotic aneurysmonce renal function is stabilized. Also recommends repeat CAT scan in 3 days. repeat chest x-ray reveals bilateral lower lobe infiltrate and small effusion stable.repeat blood work reveals WBC 13.7, hemoglobin 9.9, platelet count 327. Potassium 3.4 was replaced. Chloride 110, BUN 118 and creatinine 2.37. Blood sugars are running between 105 and 147. Calcium 7.2, total bilirubin 1.9.repeat blood cultures are allpositive for staph aureus. Temperature max 102.7. patient's CODE STATUS is full code. Dr. Saucedo has discussed trach and PEG tube and family is to decide on these issues over the weekend. REVIEW OF SYSTEMS Unable to obtain due to patient's mental status/intubation. PHYSICAL EXAMINATION Gen: This is a morbidly obese 55-year-old male. Found in ICU bed newly intubated and on mechanical ventilation. HEENT: Head is atraumatic, normocephalic. Pupils equal, round. Sclerae is anicteric. NECK: Supple. No JVD. No lymphadenopathy. No thyromegaly. LUNGS: Diminished with a few scattered rhonchi. No intercostal retractions. HEART: Regular rate and rhythm. No murmur. ABDOMEN: Soft. Bowel sounds are present. No masses. No tenderness. EXTREMITIES: No pedal edema. No calf tenderness. SKIN: No skin lesions noted, no ulcers, no wounds, no areas of erythema. NEUROLOGICAL: Patient is sedated ASSESSMENT AND PLAN 1. 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 Consult with Dr. Ashford appreciated. Patient is currently on nafcillin IV piggyback every 4 hours, continue to monitor blood cultures. 2. Metabolic encephalopathy secondary to sepsis, DTs, DKA, acute kidney injury. Consult with neurology appreciated. 3. Delirium tremors. Patient started on CIWA protocol with Ativan, thiamine, obtain alcohol level. 4. DKA in patient with diabetes mellitus type 1 insulin requiring. Patient is not on insulin pump. Transition to insulin drip to Levemir 25 units twice daily, NovoLog 10 units every 6 hours and NovoLog scale . 5. Acute kidney injury with chronic kidney disease stage III. Consult with nephrology appreciated. 6. Anion gap metabolic acidosis secondary to acute kidney injury and DKA. Status post sodium bicarb. 7. SVT most likely secondary to sepsis. Cardiology consult.amiodarone drip 8. Elevated troponins, acute coronary syndrome ruled out. Cardiology consult.. 9. Thrombocytopenia most likely secondary to sepsis. Continue to monitor. 10. Hyponatremia. Nephrology following. 11. Acute hypoxic respiratory failure requiring intubation and mechanical ventilation, managed by pulmonary medicine. 12. 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 Consult with cardiothoracic surgery 13. Hypertension. Hold lisinopril 20 mg daily. 14. Dementia. Continue Aricept 10 mg daily. 15. Hyperlipidemia. Continue Lipitor 40 mg daily. 16. Gastroesophageal reflux disease and GI prophylaxis. Protonix 40 mg IV daily. 17. History of acute respiratory failure requiring intubation secondary to polysubstance abuse which included narcotics and alcohol. 18. History of liver cirrhosis secondary to alcohol abuse. 19. History of Seizure disorder. Patient does not appear to be on Keppra anymore. 20. Generalized anxiety disorder and recurrent depression. 20. Daily crack cocaine use. Prognosis poor. DISCHARGE PLAN To be determined. Impression and plan of care have been directed as dictated by the signing physician. Elizabeth Spicer nurse practitioner acting as scribe for signing physician. Objective - Vital Signs Vital signs: Vital Signs Temp 101.8 F H 10/28/21 08:00 Pulse 108 H 10/28/21 08:00 Resp 40 H 10/28/21 08:00 BP 118/64 10/27/21 16:00 Pulse Ox 92 L 10/28/21 08:00 FiO2 40 10/28/21 08:00 Intake & Output 10/27/21 10/28/21 10/28/21 18:59 06:59 18:59 Intake Total 2251.295 3268.088 171.15 Output Total 1035 1435 350 Balance 4267.394 3676.088 -178.85 Weight 113.2 kg 114.9 kg Intake: IV 310 1520 40 .9 @ 20 10 220 40 Dextrose 5% in Water 1, 1000 000 ml @ 100 mls/hr IV . [id number] MORGAN with Sodium Bicarb (1 Meq/ml) 150 ml Rx#:[id number] Nafcillin 2 gm In 300 300 Dextrose 5% in Water 100 ml @ 50 mls/hr IVPB Q4HR MORGAN Rx#:[id number] Intake, IV Titration 1090.295 380.088 53.15 Amount Dexmedetomidine/0.9% NaCl 83.881 146.850 53.15 (Pmx) 400 mcg In Empty Bag 1 bag @ 0.2 MCG/KG/HR 5.555 mls/hr IV .[id number] MORGAN Rx#:[id number] Dextrose 5% in Water 1, 900 200 000 ml @ 100 mls/hr IV . Q10H MORGAN Rx#:[id number] Norepinephrine 4 mg In 10.559 0 Sodium Chloride 0.9% 250 ml @ 0.05 MCG/KG/MIN 20. 306 mls/hr IV .[id number] MORGAN Rx#:[id number] propofoL 1,000 mg In 106.414 22.679 0 Empty Bag 1 bag @ 5 MCG/ KG/MIN 3.489 mls/hr IV . Q24H MORGAN Rx#:[id number] Tube Feeding 351 468 78 Other 500 900 Output: Urine 1035 1435 350 Other: Voiding Method Indwelling Catheter Indwelling Catheter ABP, PAP, CO, CI - Last Documented Arterial Blood Pressure 162/71 - Labs CBC & Chem 7: 10/28/21 04:36 10/28/21 04:36 Labs: Abnormal Lab Results - Last 24 Hours (Table) 10/27/21 10/27/21 10/27/21 Range/Units 05:57 11:41 16:30 WBC (3.8-10.6) k/uL RBC (4.30-5.90) m/uL Hgb (13.0-17.5) gm/dL Hct (39.0-53.0) % MCV (80.0-100.0) fL Neutrophils # (1.3-7.7) k/uL Lymphocytes # (1.0-4.8) k/uL ABG pH (7.35-7.45) ABG HCO3 (21-25) mmol/L ABG Total CO2 (19-24) mmol/L ABG O2 Saturation (94-97) % Sodium 148 H (137-145) mmol/L Potassium (3.5-5.1) mmol/L Chloride 112 H (98-107) mmol/L BUN 126 H* (9-20) mg/dL Creatinine 2.30 H (0.66-1.25) mg/dL Glucose 150 H (74-99) mg/dL POC Glucose (mg/dL) 178 H (75-99) mg/dL Calcium 7.5 L (8.4-10.2) mg/dL Magnesium 2.4 H (1.6-2.3) mg/dL Total Bilirubin 2.6 H (0.2-1.3) mg/dL AST 90 H (17-59) U/L Alkaline Phosphatase 160 H (38-126) U/L Total Protein 6.2 L (6.3-8.2) g/dL Albumin 2.4 L (3.5-5.0) g/dL 10/27/21 10/27/21 10/28/21 Range/Units 16:35 23:47 04:36 WBC 13.7 H (3.8-10.6) k/uL RBC 3.13 L (4.30-5.90) m/uL Hgb 9.9 L (13.0-17.5) gm/dL Hct 32.0 L (39.0-53.0) % MCV 102.2 H (80.0-100.0) fL Neutrophils # 11.9 H (1.3-7.7) k/uL Lymphocytes # 0.8 L (1.0-4.8) k/uL ABG pH (7.35-7.45) ABG HCO3 (21-25) mmol/L ABG Total CO2 (19-24) mmol/L ABG O2 Saturation (94-97) % Sodium (137-145) mmol/L Potassium (3.5-5.1) mmol/L Chloride (98-107) mmol/L BUN (9-20) mg/dL Creatinine (0.66-1.25) mg/dL Glucose (74-99) mg/dL POC Glucose (mg/dL) 137 H 147 H (75-99) mg/dL Calcium (8.4-10.2) mg/dL Magnesium (1.6-2.3) mg/dL Total Bilirubin (0.2-1.3) mg/dL AST (17-59) U/L Alkaline Phosphatase (38-126) U/L Total Protein (6.3-8.2) g/dL Albumin (3.5-5.0) g/dL 10/28/21 10/28/21 10/28/21 Range/Units 04:36 05:25 06:06 WBC (3.8-10.6) k/uL RBC (4.30-5.90) m/uL Hgb (13.0-17.5) gm/dL Hct (39.0-53.0) % MCV (80.0-100.0) fL Neutrophils # (1.3-7.7) k/uL Lymphocytes # (1.0-4.8) k/uL ABG pH 7.46 H (7.35-7.45) ABG HCO3 27 H (21-25) mmol/L ABG Total CO2 28 H (19-24) mmol/L ABG O2 Saturation 98.1 H (94-97) % Sodium (137-145) mmol/L Potassium 3.4 L (3.5-5.1) mmol/L Chloride 110 H (98-107) mmol/L BUN 118 H* (9-20) mg/dL Creatinine 2.37 H (0.66-1.25) mg/dL Glucose 106 H (74-99) mg/dL POC Glucose (mg/dL) 105 H (75-99) mg/dL Calcium 7.2 L (8.4-10.2) mg/dL Magnesium (1.6-2.3) mg/dL Total Bilirubin 1.9 H (0.2-1.3) mg/dL AST 79 H (17-59) U/L Alkaline Phosphatase 146 H (38-126) U/L Total Protein 6.2 L (6.3-8.2) g/dL Albumin 2.4 L (3.5-5.0) g/dL Microbiology - Last 24 Hours (Table) 10/26/21 14:53 Blood Culture Gram Stain - Preliminary Blood 10/25/21 01:49 Blood Culture - Preliminary Blood No Growth after 72 hours 10/26/21 14:53 Blood Culture - Final Blood 10/26/21 14:44 Blood Culture - Final Blood 10/23/21 05:50 Blood Culture Gram Stain - Final Blood Blood Culture - Final Staphylococcus aureus 10/21/21 10:37 Blood Culture Gram Stain - Final Blood Blood Culture - Final Staphylococcus aureus 10/26/21 02:45 Gram Stain - Preliminary Throat Tissue Culture - Preliminary 10/25/21 23:40 Gram Stain - Preliminary Sputum Sputum Culture - Preliminary 10/25/21 04:45 Gram Stain - Final Sputum Sputum Culture - Final
[2021-10-28 18:02] LABS: Glucose,Whole Blood 197 mg/dL (75-99)
--- NOTE | 2021-10-28 19:45 | P.PN ---
Subjective Progress Note Date: 10/28/21 Principal diagnosis: Sepsis and bacteremia Patient is a 55-year-old male with a past medical history significant for insulin-dependent diabetes mellitus presented to hospital with weakness and mental status changes and elevated blood sugar, patient did have evidence of MSSA bacteremia. Patient did have a CRYSTAL completed on 10/26/2021 with evidence of mitral valve endocarditis On today's evaluation that is 10/28/2021, patient continues to be afebrile, the patient went into A. fib with RVR with the patient had been started on amiodarone and also requiring no was present supportive, the patient FiO2 is stable at 40%, and no significant purulent secretion through the ET reported by the nursing staff and no diarrhea Objective - Vital Signs Vital signs: Vital Signs Temp 102.7 F H 10/28/21 11:00 Pulse 110 H 10/28/21 12:00 Resp 32 H 10/28/21 12:00 BP 118/64 10/27/21 16:00 Pulse Ox 96 10/28/21 12:00 FiO2 40 10/28/21 12:00 Intake & Output 10/27/21 10/28/21 10/28/21 18:59 06:59 18:59 Intake Total 2251.295 3268.088 835.849 Output Total 1035 1435 720 Balance 7634.023 0783.088 115.849 Weight 113.2 kg 114.9 kg Intake: IV 310 1520 120 .9 @ 20 10 220 120 Dextrose 5% in Water 1, 1000 000 ml @ 100 mls/hr IV . [id number] MORGAN with Sodium Bicarb (1 Meq/ml) 150 ml Rx#:[id number] Nafcillin 2 gm In 300 300 Dextrose 5% in Water 100 ml @ 50 mls/hr IVPB Q4HR MORGAN Rx#:[id number] Intake, IV Titration 1090.295 380.088 81.849 Amount Dexmedetomidine/0.9% NaCl 83.881 146.850 53.15 (Pmx) 400 mcg In Empty Bag 1 bag @ 0.2 MCG/KG/HR 5.555 mls/hr IV .[id number] MORGAN Rx#:[id number] Dextrose 5% in Water 1, 900 200 000 ml @ 100 mls/hr IV . Q10H MORGAN Rx#:[id number] Norepinephrine 4 mg In 10.559 15.906 Sodium Chloride 0.9% 250 ml @ 0.05 MCG/KG/MIN 20. 306 mls/hr IV .[id number] MORGAN Rx#:[id number] propofoL 1,000 mg In 106.414 22.679 12.793 Empty Bag 1 bag @ 5 MCG/ KG/MIN 3.489 mls/hr IV . Q24H MORGAN Rx#:[id number] Tube Feeding 351 468 234 Other 500 900 400 Output: Urine 1035 1435 720 Other: Voiding Method Indwelling Catheter Indwelling Catheter Indwelling Catheter ABP, PAP, CO, CI - Last Documented Arterial Blood Pressure 131/53 - Exam GENERAL DESCRIPTION: Middle-aged male intubated on the vent RESPIRATORY SYSTEM: Unlabored breathing , decreased breath sounds at bases HEART: S1 S2 regular rate and rhythm , ABDOMEN: Soft , no tenderness EXTREMITIES: No edema feet - Labs CBC & Chem 7: 10/28/21 04:36 10/28/21 04:36 Labs: Abnormal Lab Results - Last 24 Hours (Table) 10/27/21 10/27/21 10/27/21 Range/Units 16:30 16:35 23:47 WBC (3.8-10.6) k/uL RBC (4.30-5.90) m/uL Hgb (13.0-17.5) gm/dL Hct (39.0-53.0) % MCV (80.0-100.0) fL Neutrophils # (1.3-7.7) k/uL Lymphocytes # (1.0-4.8) k/uL ABG pH (7.35-7.45) ABG HCO3 (21-25) mmol/L ABG Total CO2 (19-24) mmol/L ABG O2 Saturation (94-97) % Sodium 148 H (137-145) mmol/L Potassium (3.5-5.1) mmol/L Chloride 112 H (98-107) mmol/L BUN 126 H* (9-20) mg/dL Creatinine 2.30 H (0.66-1.25) mg/dL Glucose 150 H (74-99) mg/dL POC Glucose (mg/dL) 137 H 147 H (75-99) mg/dL Calcium 7.5 L (8.4-10.2) mg/dL Total Bilirubin 2.6 H (0.2-1.3) mg/dL AST 90 H (17-59) U/L Alkaline Phosphatase 160 H (38-126) U/L Total Protein 6.2 L (6.3-8.2) g/dL Albumin 2.4 L (3.5-5.0) g/dL 10/28/21 10/28/21 10/28/21 Range/Units 04:36 04:36 05:25 WBC 13.7 H (3.8-10.6) k/uL RBC 3.13 L (4.30-5.90) m/uL Hgb 9.9 L (13.0-17.5) gm/dL Hct 32.0 L (39.0-53.0) % MCV 102.2 H (80.0-100.0) fL Neutrophils # 11.9 H (1.3-7.7) k/uL Lymphocytes # 0.8 L (1.0-4.8) k/uL ABG pH 7.46 H (7.35-7.45) ABG HCO3 27 H (21-25) mmol/L ABG Total CO2 28 H (19-24) mmol/L ABG O2 Saturation 98.1 H (94-97) % Sodium (137-145) mmol/L Potassium 3.4 L (3.5-5.1) mmol/L Chloride 110 H (98-107) mmol/L BUN 118 H* (9-20) mg/dL Creatinine 2.37 H (0.66-1.25) mg/dL Glucose 106 H (74-99) mg/dL POC Glucose (mg/dL) (75-99) mg/dL Calcium 7.2 L (8.4-10.2) mg/dL Total Bilirubin 1.9 H (0.2-1.3) mg/dL AST 79 H (17-59) U/L Alkaline Phosphatase 146 H (38-126) U/L Total Protein 6.2 L (6.3-8.2) g/dL Albumin 2.4 L (3.5-5.0) g/dL 10/28/21 10/28/21 Range/Units 06:06 11:35 WBC (3.8-10.6) k/uL RBC (4.30-5.90) m/uL Hgb (13.0-17.5) gm/dL Hct (39.0-53.0) % MCV (80.0-100.0) fL Neutrophils # (1.3-7.7) k/uL Lymphocytes # (1.0-4.8) k/uL ABG pH (7.35-7.45) ABG HCO3 (21-25) mmol/L ABG Total CO2 (19-24) mmol/L ABG O2 Saturation (94-97) % Sodium (137-145) mmol/L Potassium (3.5-5.1) mmol/L Chloride (98-107) mmol/L BUN (9-20) mg/dL Creatinine (0.66-1.25) mg/dL Glucose (74-99) mg/dL POC Glucose (mg/dL) 105 H 216 H (75-99) mg/dL Calcium (8.4-10.2) mg/dL Total Bilirubin (0.2-1.3) mg/dL AST (17-59) U/L Alkaline Phosphatase (38-126) U/L Total Protein (6.3-8.2) g/dL Albumin (3.5-5.0) g/dL Microbiology - Last 24 Hours (Table) 10/25/21 23:40 Gram Stain - Final Sputum Sputum Culture - Final 10/26/21 14:44 Blood Culture Gram Stain - Preliminary Blood 10/26/21 14:53 Blood Culture Gram Stain - Preliminary Blood 10/25/21 01:49 Blood Culture - Preliminary Blood No Growth after 72 hours 10/26/21 14:53 Blood Culture - Final Blood 10/26/21 14:44 Blood Culture - Final Blood 10/23/21 05:50 Blood Culture Gram Stain - Final Blood Blood Culture - Final Staphylococcus aureus 10/21/21 10:37 Blood Culture Gram Stain - Final Blood Blood Culture - Final Staphylococcus aureus 10/26/21 02:45 Gram Stain - Preliminary Throat Tissue Culture - Preliminary 10/25/21 04:45 Gram Stain - Final Sputum Sputum Culture - Final Assessment and Plan (1) Bacteremia Current Visit: Yes Status: Acute Code(s): R78.81 - BACTEREMIA SNOMED Code(s): 3376631 Plan: 1patient presented to hospital with weakness in this patient did have a fever tachycardia meeting criteria for sepsis though initial work-up for a source has been negative with a negative UA chest x-ray did not show any acute abnormality patient abdominal was soft clinical examination and no evidence of any lower extremity cellulitis or joint swelling. Ultrasound negative for any hydronephrosis or cholecystitis 2patient did have persistent MSSA bacteremia concerning for endovascular source, CRYSTAL did shows evidence of mitral valve endocarditis and there is a questionable possible septic emboli to the brain, repeat blood culture had been negative, however the patient did have a new fever and blood cultures will be repeated, patient to continue with Naficillin , family at the bedside questions were answered Time with Patient: Less than 30
[2021-10-28 20:52] LABS: Glucose,Whole Blood 133 mg/dL (75-99)
[2021-10-29 00:04] LABS: Glucose,Whole Blood 127 mg/dL (75-99)
[2021-10-29] MEDS: INSULIN ASPART (NovoLOG) 100 UNIT/ML VIAL SQ SCH ×10 (00:04→23:51)
[2021-10-29] MEDS: NAFCILLIN 2 GM in DEXTROSE 5% IN WATER 100 ML IVPB SCH ×14 (00:06→23:53)
[2021-10-29 05:24] LABS: HCT 31.6 % (39.0-53.0); HGB 10.1 gm/dL (13.0-17.5); Hypochromasia Slight; MCH 32.9 pg (25.0-35.0); MCV 102.9 fL (80.0-100.0); Macrocytosis Slight; Mean Platelet Volume 8.7; Platelet Count 296 k/uL (150-450); RBC 3.08 m/uL (4.30-5.90); RDW 14.1 % (11.5-15.5); WBC 17.3 k/uL (3.8-10.6)
[2021-10-29 05:57] LABS: ABG Base Excess 1.1 mmol/L; ABG HCO3 25 mmol/L (21-25); ABG PCO2 38 mmHg (35-45); ABG PH 7.43 (7.35-7.45); ABG PO2 75 mmHg (83-108); ABG TCO2 27 mmol/L (19-24)
[2021-10-29 06:03] LABS: ABG Oxygen Saturation 96.1 % (94-97); Allen Test Performed? No
[2021-10-29 06:29] LABS: Calcium 7.1 mg/dL (8.4-10.2); Potassium 3.6 mmol/L (3.5-5.1)
[2021-10-29 06:38] LABS: Glucose,Whole Blood 108 mg/dL (75-99)
[2021-10-29] MEDS: AMIODARONE 360 MG in DEXTROSE 5% IN WATER 200 ML IV SCH ×8 (06:38→23:51)
--- NOTE | 2021-10-29 06:43 | XR ---
EXAMINATION TYPE: XR chest 1V portable DATE OF EXAM: 10/29/2021 COMPARISON: 10/29/2021 HISTORY: Tube placement TECHNIQUE: Single frontal view of the chest is obtained. FINDINGS: There is an ET tube 4.7 cm above the pamela. There is a central venous catheter which/R ju nction. There is moderate pulmonary vascular congestion. There are small bilateral pleural effusions. There i s a retrocardiac opacity consistent with atelectasis or infiltrate. There is no pneumothorax. Heart size is normal. The osseous structures are intact. IMPRESSION: 1. Acute cardiopulmonary disease with mild interval worsening compared to previous. 2. ET tube 4.7 cm above the pamela.
[2021-10-29] MEDS: HYDROmorphone 1 MG/ML 1 ML SYRINGE IVP PRN ×4 (06:50→21:11)
[2021-10-29] MEDS: IPRATROPIUM-ALBUTEROL 3 ML NEB INHALATION SCH ×3 (07:13→20:31)
--- NOTE | 2021-10-29 07:45 | P.PN ---
Subjective Progress Note Date: 10/29/21 10/24/2021, [facility] patient for a follow-up in the patient is altered mentally and the patient is still going through delirium tremens. The patient is currently on Precedex running at 0.2 mcg/kg per minute. Note that the patient is a 55-year-old female patient with known history of diabetes mellitus type 1, hypertension, chronic kidney disease, COPD, dementia, alcohol abuse and crack cocaine abuse. Patient currently is calm and comfortable. Arousable. He is not following commands consistently. At times, gets restless and agitated and the Precedex dose being titrated by the nursing staff here in the intensive care unit. The patient remains on IV fluids with normal saline at the rate of 75 mL an hour. Urine output is adequate. The patient is currently not requiring any pressors. Overall fluid balance is +2.8 L over the past 24 hours and the patient remains on IV Solu regarding MSSA septicemia. Note that the patient's urine culture and blood culture both indicated MSSA. The patient is currently on 4 L about 2 by nasal cannula. The white cell count is at 10.2 with a hemoglobin of 11 and a platelet count of 193. At the same time, the patient has a sodium level of 142, serum bicarbonate is 18 with a BUN of 101 and a creatinine of 2.85 which is improved compared to yesterday. The total protein is at 5.6 with an albumin level of 2.5. The patient otherwise is resting comfortably in bed. No other significant events over the past 24 hours. Nephrology saw the patient and patient was switched from normal saline to a bicarb infusion to counteract his metabolic acidosis. Meanwhile, the patient on Levemir insulin 25 units twice a day and a NovoLog sliding scale coverage. He remains on Protonix. No other significant issues overnight. 10/25/2021, I'm seeing the patient for a follow-up. Events from yesterday evening were noted. The patient went into a tachycardic rhythm/sinus tachycardia versus SVT and the patient was quite lethargic, and unresponsive. He was breathing was also labored. That point, decided to proceed with intubation and the patient was intubated by the [employer] overnight and he was placed on a mechanical ventilator. This morning, is converted back into normal sinus rhythm. His not receiving any effusions REGARDING his heart rate. He did receive Cardizem yesterday which was discontinued after the patient's potassium converted into normal sinus rhythm. He is currently on propofol running at 40 mg/kg per minute. He is calm and comfortable. He is quite cigarettes a mechanical ventilator. He is an assist-control mode of mechanical ventilation at the rate of 26 with an FiO2 of 50% with a PEEP of 5 and tidal volume of 400. Chest x-ray postintubation shows increased pulmonary vessel markings and pulmonary vessel congestion and edema. The blood gases from today shows a pH of 7.43 with a pCO2 of 37 and pO2 116 and this was done and FiO2 of 70%. Peak airway pressures around 18. The patient is on IV fluids at [facility]. He did receive bicarb infusion yesterday and his acid base status is improved considerably. White cell count of 15.1 with a hemoglobin above 7 and a platelet count of 232. Sodium is at 145 with a potassium level of 3.8 150 with a bicarb of 23. BUN is 106 and creatinine is at 2.6. Note that his renal function has improved compared to yesterday knowing that his creatinine from yesterday was at 2.8. The patient is currently nothing by mouth. He is well sedated. He is afebrile. He is on Levemir insulin 25 units twice a day along with a NovoLog sliding scale coverage. He is on IV cefazolin. Repeat cultures is again positive for gram-positive cocci and the patient is still persistently bacteremic and he herminio ins on IV Kefzol 2 g every 8 hours. The baseline echocardiogram transthoracic showed no evidence of any regurgitation, high likelihood for infective endocarditis in this patient. Comorbid conditions include type 1 diabetes mellitus, chronic kidney disease, COPD, dementia, alcoholism and crack cocaine use. He also has history of hypertension. 10/26/2021, the patient is being seen for a follow-up. The patient is currently still intubated on a mechanical ventilator and the patient is currently on propofol running at the rate of 30 milligrams per kilogram per minute. The patient's is grimacing to deep painful stimulation and he senses pain in all 4 extremities. Does not follow any commands at this point in time. A CAT scan of the brain was performed yesterday and there is a concern for septic emboli as the CAT scan of the brain showed interval development of a left frontal and parietal cortical and subcortical infarcts which could represent watershed infarct versus septic emboli. Neurology was again involved in the case and there were asked to reconsult on him. He is currently placed on aspirin. Carotid Dopplers are in progress. No seizure activity has been noted. On today's evaluation, the patient remains essentially the same mechanical ventilator setting with a rate of 26, tidal volume of 400, FiO2 of 50% with a PEEP of 5. Lung scan showed pH of 7.49 with a pCO2 of 37 and pO2 of 84. The chest x-ray from today shows adequate expansion of both lungs. ET tube is in a good location. No airspace disease or consolidation. In terms of cultures, the patient's positive blood cultures were consistent with MSSA and the patient was further switched from IV cefazolin to IV nafcillin per recommendations done by infectious disease. Cardiac rhythm is currently sinus and the patient is on no pressors. He is receiving enteral feeding for nutritional support and the sandrine ent is currently on Levemir 25 units twice a day along with a NovoLog sliding scale coverage. Note that overnight, the patient had an episode where he became quite restless and agitated and tachypneic. He also had some mild hypoxemia. He was suctioned and a large mucous plug was aspirated and Zosyn and also for cultures. As mentioned, the patient remains on IV nafcillin for now. No pressors at this point in time. He is afebrile. The plan for today is to proceed with a CRYSTAL. A carotid Doppler is also in progress. Overall fluid balance over the past 24 hours has been -1.4 L and the patient is receiving Lasix 40 m IV every 24 hours. Enterofeeding is in the form of vital high protein. Comorbid conditions include diabetes mellitus type 1, COPD, dementia, alcoholism, hypertension and crack cocaine use. His white cell count today is at 13.6 with a hemoglobin of 9.9. Sodium is 146, BUN is at 118 with a creatinine of 2.4 and as noted, the patient has a component of chronic kidney di sease. LFTs are stable at this point in time. Bilirubin is at 1.5 slightly higher yet AST is at 147 and ALT is at 17 with an alkaline phosphatase of 129. 10/27/2021, the patient remains intubated on mechanical ventilator. He is a case of infective endocarditis and this was confirmed by a CRYSTAL indicating vegetation involving the mitral valve. Overall clinical presentation is consistent with infective endocarditis secondary to underlying sepsis with septic emboli to the brain. CRYSTAL showed large vegetation involving the posterior mitral leaflet with a smaller vegetation involving the anterior mitral leaflet and mild degree of mitral regurgitation. LV function was essentially within normal limits. The patient was also found to have a small atrial septal defects. The patient is still on a mechanical ventilator. The patient is sedated currently with propofol running at 25 mcg/kg per minute. He is an assist-control mode of mechanical ventilation at the rate of 26 with a tidal volume of 400 and FiO2 of 40% with a PEEP of 5. Blood gases showed pH of 7.49 with a pCO2 of 34 and pO2 of 77. The chest x-ray from today is showing adequate positioning of the orotracheal tube. The patient has no evidence of any pneumothorax. The patient has stable left sided atelectasis/effusion along with some right perihilar haziness. Overall chest x-ray findings are essentially stable for now. He was dynamically he is on no pressors. He is maintaining his own blood pressure. His cardiac rhythm is sinus for now. In terms of his mental status, the patient will be given a sedation holiday today. A repeat CAT scan of the head was done yesterday and it showed anterior right temporal and l eft occipital lobe and left parietal lobe infarcts. No evidence of any intracranial hemorrhage. There is underlying cerebral atrophy. Underlying mental status will be evaluated after the patient is weaned off the propofol. Meanwhile, the repeat blood cultures from 10/25/2021 has shown no gross and the last positive blood culture was from 10/23/2021. The sputum Gram stain and culture is showing no microbial organisms for now. The patient remains on IV nafcillin for now. Terms of his fluid balance, the patient has been negative fluid balance of 1.2 L over the past 24 hours. His IV fluids are in the form of 0.9 at the rate of 10 mL an hour. His sodium level today is up 250 with a potas sium level of 3.5. The BUN is at 123 with a creatinine of 2.4 and a potassium level is at 3.5. Liver function tests remain mildly elevated in terms of the alkaline phosphatase. The bilirubin is also is on the rise at 2.5. The white cell count today is at 12.2 with a hemoglobin 9.9 and platelet count of 305. The patient is receiving enteral feeding for nutritional support and currently is on vital high protein at the rate of 39 mL an hour. He is febrile and low- grade fever 10/28/2021, I'm seeing the patient for a follow-up. Our concern was his ongoing mental status and I want to give the patient sedation holiday yesterday. I gradually asked the nurses to wean off the propofol and this was this patient to Precedex. We were able to do this switch and the patient was doing well till in the evening when he started getting quite agitated. At that point, I was contacted by the nursing staff and I asked the nurses to start back the propofol. However there was a concern with his blood pressure and probable was not started and the patient was kept only on Precedex. Earlier this morning, the patient was quite agitated. He was restless. He was tachypneic and tachycardic and he went into an SVT. During the process, he was given adenosine 6 mg IV and converted back into normal sinus rhythm. His mentation was fluctuating. He was evaluated by neurology and he was not following commands consistently. At that point, the patient was restarted back on propofol which is running at 50 mcg/kg per minute and the patient is currently off Precedex. His mentation is obviously still abnormal and it does not recovered. Meanwhile, the patient remains an assist-control mode of mechanical ventilation. He is on a rate of 26 with tidal volume of 400 and FiO2 of 40% with a PEEP of 5. Chest x-ray remains unchanged. ET tube remains inotropic and may need to be pushed and by around 1 cm. Meanwhile, the blood gases from today showed a pH of 7.46 with a pCO2 of 38 and pO2 of 89. His current cardiac rhythm is sinus. He is on low-dose pressors and the patient is on norepinephrine running at 0.01 mcg/kg per minute. He remains on IV nafcillin. Most recent blood cultures have shown persistent bacteremia as the blood culture from 10/26/2021 was again positive for gram-positive cocci which will veneer jointer returner to be an MSSA. The rest of the blood work from today shows a white cell count of 13.7 with a hemoglobin around 9.9 and a platelet count of 327. The electrolytes are within normal limits. BUN is 118 and creatinine of 2.37 and the patient is known to have chronic kidney disease. Pro-calcitonin from 10/24/2021 was 55.5. He is on enteral feeding for nutritional support and he is currently receiving Vital HP rate of 39 mL an hour. The patient continues to be febrile with a T-max of 101.8. 10/29/2021,, the patient remains sedated. The patient has had difficulties and recovering from sedation due to extreme agitation and is secondary with a mechanical ventilator and cardiac arrhythmias. Attempts to wean him off the sedation put the patient into atrial tachycardia. Cardiology evaluated the patient. The patient was started on amiodarone 1 mg per minute loading and this needs to be followed up with subsequent maintenance. This morning, the patient is sedated with propofol running at 50 mcg/kg per minute. His well rested and comfortable. He remains on a mechanical ventilator on assist control mode and the ventilator settings are essentially unchanged at the rate of 26 with tidal volume of 400 and FiO2 of 40% with a PEEP of 5. Blood gases showed a pH of 7.43 with a pCO2 of 38 and pO2 of 75 and a chest x-ray from today shows essentially no significant interval change. ET tube remains in a good location. The patient has a left subclavian triple-lumen catheter in place. At the same time, there are some infiltrates in the left lower lobe along with a small effusion. His infiltrates are also present in the right perihilar and right lower lobe area. The patient is having limited to respiratory secretions. Hemodynamically, he is stable on no pressors. His white cell count is at 17.3 and the most recent blood cultures from 10/26/2021 were positive for staph aureus. There is another blood culture that was sent on 10/27/2021 and he does not shown any growth thus far. The patient remains on IV nafcillin. He is running a low-grade fever with a T-max of 100.2F. His current cardiac rhythm is sinus. He was having atrial tachycardia. He was started on amiodarone loading by cardiology. His white cell count is at 17.3 with a hemoglobin of 10.1 both being stable with some elevation in the white cell count. Platelet counts are 296. BUN is 112 with a creatinine of 2.42 and the sodium level is at 143. The patient remains on enteral feeding for nutritional support. He is receiving vital high protein at the rate of 39 mL an hour. The patient is also receiving water. His flushes through his OG 400 mL every 6 hours. His sodium level has essentially normalized at is down to 143. The overall fluid balance over the past 24 hours is +3 L and the patient seventh hours a positive fluid balance Objective - Vital Signs Vital signs: Vital Signs Temp 98.4 F 10/29/21 04:00 Pulse 102 H 10/29/21 07:13 Resp 30 H 10/29/21 07:13 BP 118/64 10/27/21 16:00 Pulse Ox 94 L 10/29/21 07:00 FiO2 40 10/29/21 07:13 Intake & Output 10/28/21 10/29/21 10/29/21 18:59 06:59 18:59 Intake Total 2099.436 2556.404 59 Output Total 1110 1110 75 Balance 267.205 2931.404 -16 Weight 114.9 kg Intake: IV 240 540 20 .9 @ 20 240 240 20 Nafcillin 2 gm In 300 Dextrose 5% in Water 100 ml @ 50 mls/hr IVPB Q4HR [facility] Rx#:[id number] Intake, IV Titration 591.436 748.404 Amount Amiodarone 360 mg In 200 359.998 Dextrose 5% in Water 200 ml @ 1 MG/MIN 33.333 mls/ hr IV .Q6H [facility] Rx#: [id number] Dexmedetomidine/0.9% NaCl 53.15 (Pmx) 400 mcg In Empty Bag 1 bag @ 0.2 MCG/KG/HR 5.555 mls/hr IV .[id number] [facility] Rx#:[id number] Norepinephrine 4 mg In 138.286 Sodium Chloride 0.9% 250 ml @ 0.05 MCG/KG/MIN 20. 306 mls/hr IV .[id number] [facility] Rx#:[id number] propofoL 1,000 mg In 200.000 388.406 Empty Bag 1 bag @ 5 MCG/ KG/MIN 3.489 mls/hr IV . Q24H [facility] Rx#:[id number] Tube Feeding 468 468 39 Other 800 800 Output: Urine 1110 1110 75 Other: Voiding Method Indwelling Catheter Indwelling Catheter ABP, PAP, CO, CI - Last Documented Arterial Blood Pressure 128/54 - Exam Sedated, currently on propofol, sedated and calm and comfortable, secondary to mechanical ventilator , Orotracheal and orogastric tube are both in place Head exam was generally normal. There was no scleral icterus or corneal arcus. Mucous membranes were moist. Neck was supple and without jugular venous distension, thyromegaly, or carotid bruits. Carotids were easily palpable bilaterally. There was no adenopathy. Cardiovascular examination reveals regular rhythm rate. S1-S2 normal. No S3 or S4. No discernible murmur noted. Lungs reveal scattered bilateral rhonchi. Breath sounds equal. No wheezes. Abdominal exam revealed normal bowel sounds. The abdomen was soft, non-tender, and without masses, organomegaly, or appreciable enlargement of the abdominal aorta. Extremities are intact. No cyanosis clubbing or edema. The patient does have some areas of ecchymotic spots in his fingers in the left hand involving the fourth and fifth digit and this is consistent with septic emboli. Skin is without rash or lesion. Neurologic examination is nonfocal and the patient is withdrawing to deep painful stimulation. Currently sedated with propofol. - Labs CBC & Chem 7: 10/29/21 04:20 10/29/21 04:20 Labs: Abnormal Lab Results - Last 24 Hours (Table) 10/28/21 10/28/21 10/28/21 Range/Units 11:35 17:51 20:50 WBC (3.8-10.6) k/uL RBC (4.30-5.90) m/uL Hgb (13.0-17.5) gm/dL Hct (39.0-53.0) % MCV (80.0-100.0) fL ABG pO2 (83-108) mmHg ABG Total CO2 (19-24) mmol/L Chloride (98-107) mmol/L BUN (9-20) mg/dL Creatinine (0.66-1.25) mg/dL Glucose (74-99) mg/dL POC Glucose (mg/dL) 216 H 197 H 133 H (75-99) mg/dL Calcium (8.4-10.2) mg/dL 10/29/21 10/29/21 10/29/21 Range/Units 00:02 04:20 04:20 WBC 17.3 H (3.8-10.6) k/uL RBC 3.08 L (4.30-5.90) m/uL Hgb 10.1 L (13.0-17.5) gm/dL Hct 31.6 L (39.0-53.0) % MCV 102.9 H (80.0-100.0) fL ABG pO2 (83-108) mmHg ABG Total CO2 (19-24) mmol/L Chloride 108 H (98-107) mmol/L BUN 112 H* (9-20) mg/dL Creatinine 2.42 H (0.66-1.25) mg/dL Glucose 104 H (74-99) mg/dL POC Glucose (mg/dL) 127 H (75-99) mg/dL Calcium 7.1 L (8.4-10.2) mg/dL 10/29/21 10/29/21 Range/Units 05:12 06:36 WBC (3.8-10.6) k/uL RBC (4.30-5.90) m/uL Hgb (13.0-17.5) gm/dL Hct (39.0-53.0) % MCV (80.0-100.0) fL ABG pO2 75 L (83-108) mmHg ABG Total CO2 27 H (19-24) mmol/L Chloride (98-107) mmol/L BUN (9-20) mg/dL Creatinine (0.66-1.25) mg/dL Glucose (74-99) mg/dL POC Glucose (mg/dL) 108 H (75-99) mg/dL Calcium (8.4-10.2) mg/dL Microbiology - Last 24 Hours (Table) 10/25/21 01:49 Blood Culture - Preliminary Blood No Growth after 96 hours 10/27/21 14:00 Blood Culture - Preliminary Blood No Growth after 24 hours 10/25/21 23:40 Gram Stain - Final Sputum Sputum Culture - Final 10/26/21 14:44 Blood Culture Gram Stain - Preliminary Blood 10/26/21 14:53 Blood Culture Gram Stain - Preliminary Blood 10/26/21 14:53 Blood Culture - Final Blood Assessment and Plan Plan: Infective endocarditis. The patient was found to have large vegetation involving the posterior leaflet of the mitral valve along with some mild mitral regurgitation. This is a MSSA related infective endocarditis. The patient has persistent bacteremia and the most recent blood culture from 10/26 2021 was positive. Serum blood culture from 10/27/2021 is negative thus far. The patient remains on nafcillin. The patient remains febrile. The patient is off pressors this morning. However on now. Required low-dose vasopressors. Septic shock, MSSA, off vasopressors and the patient is currently maintaining his own blood pressure. The patient was found to have MSSA in the urine and in the blood. Note that the patient has been persistently bacteremic. Blood cultures on yesterday's since showing gram-positive cocci, currently on IV nafcillin. The patient is is running a low-grade fever. Hemodynamically stable. The most recent blood culture from 10/27/2021 was negative for any growth. Subsequent cultures from 10/26/2021 came back positive for gram- positive cocci. Septic emboli to the brain secondary to infective endocarditis.Also had some septic emboli to his fingers on the left hand, fourth and fifth. Acute hypoxic respiratory failure, currently intubated on a mechanical ventilator, chest x-ray and blood gases were noted Mental status changes, multifactorial, related to drug withdrawal and septic emboli with multi level infarct involving the frontal and the parietal and occipital lobes without any evidence of bleeding. The patient failed a sedation holiday yesterday. Actually this was a failed holiday by development of significant hemodynamic instability and SVT /atrial tachycardia. He is back to normal sinus rhythm. He is back on propofol running at 50 mcg/kg per minute. Diabetic ketoacidosis , the patient is a component of DKA at time of admission. Currently the patient was on insulin drip and the patient was switched to long- acting insulin with Levemir 25 units twice a day and a sliding scale coverage. Delirium tremens IRIS on CKD, creatinine is stable for now History of type 1 diabetes mellitus, currently on Levemir insulin Anion gap metabolic acidosis, recovered Elevated troponin level. History of chronic kidney disease. History of COPD from ongoing and heavy tobacco use. History of dementia. History of chronic alcohol abuse, drinking 1/5 of vodka daily. Daily crack cocaine use. hypernatremia, currently on D5 water and the sodium level is down to 143 Plan Keep the patient ICU No ventilator changes for today Discontinue water flushes Patient on propofol at 50 mcg/kg per minute. Holiday off sedation today. Refilled the sedation holiday, we'll do another computed tomography scan of the chest, noncontrast study. Blood cultures are still positive from 10/26/2021 and follow-up blood cultures from 10/27/2021 are negative and discussed the case with the cardiothoracic team and the patient is not a surgical candidate at this point in time Put the patient on Lasix 40 mg every 12 hours and monitor the electrolytes and the fluid balance. CAT scan of the brain was noted and the patient has multilevel infarct/optic emboli involving the right frontal and left temporal and parietal areas CRYSTAL noted Carotid Dopplers noted Continue IV nafcillin nutritional support long-acting insulin Levemir 25 units twice a day We'll continue to follow make further recommendations based on his progress. Prognosis remains extremely poor. Mental status to an alternative. The patient failed a sedation holiday. We'll have further discussion with the family. I met with the and with the parents separately. There is consideration for comfort care measures with the next 24-48 hours if he shows no signs of improvement. We'll continue to follow. The parents are taken it still very hard and they're not realistic with the expectation. The is more reasonable at this point in time and she understands situation very well. We'll have further discussions with the family. Critically care evaluation was done and morning and 30 minutes. The patient's critically ill. Family has been updated on his condition yesterday. Time with Patient: Greater than 30
[2021-10-29] MEDS ORDERED: POTASSIUM BICARBONATE/CIT AC 20 MEQ TABLET.EFF PO ONE (08:00)
[2021-10-29] MEDS ORDERED: FUROSEMIDE 10 MG/ML 4 ML VIAL IV SCH (09:00)
[2021-10-29] MEDS: NICOTINE 21MG/24HR PATCH TRANSDERM SCH (09:52)
[2021-10-29] MEDS: CHLORHEXIDINE GLUCONATE 15 ML CUP MUCOUS MEM SCH ×2 (09:54→20:25)
[2021-10-29] MEDS: THIAMINE 100 MG/ML 2 ML VIAL IVP SCH ×2 (09:54→20:25)
[2021-10-29] MEDS: PANTOPRAZOLE 40 MG/10 ML VIAL IVP SCH (09:55)
--- NOTE | 2021-10-29 09:58 | P.PN ---
Subjective Patient is seen in follow-up for acute kidney injury and chronic kidney disease. Renal function stable. Nonoliguric. Intubated. On 40% FiO2. Receiving tube feeds. On amiodarone drip for atrial tachycardia. Sodium level 143 today. Vital signs stable. HEENT: Intubated. LUNGS: Breath sounds decreased. HEART: Tachycardic. ABDOMEN: Soft, no distention. EXTREMITITES: Trace edema. Objective - Vital Signs Vital signs: Vital Signs Temp 98.4 F 10/29/21 04:00 Pulse 98 10/29/21 08:00 Resp 31 H 10/29/21 08:00 BP 118/64 10/27/21 16:00 Pulse Ox 94 L 10/29/21 07:00 FiO2 40 10/29/21 07:13 Intake & Output 10/28/21 10/29/21 10/29/21 18:59 06:59 18:59 Intake Total 2099.436 2556.404 106.102 Output Total 1110 1110 75 Balance 210.632 1939.404 31.102 Weight 114.9 kg Intake: IV 240 540 20 .9 @ 20 240 240 20 Nafcillin 2 gm In 300 Dextrose 5% in Water 100 ml @ 50 mls/hr IVPB Q4HR [facility] Rx#:[id number] Intake, IV Titration 591.436 748.404 47.102 Amount Amiodarone 360 mg In 200 359.998 Dextrose 5% in Water 200 ml @ 1 MG/MIN 33.333 mls/ hr IV .Q6H [facility] Rx#: [id number] Dexmedetomidine/0.9% NaCl 53.15 (Pmx) 400 mcg In Empty Bag 1 bag @ 0.2 MCG/KG/HR 5.555 mls/hr IV .Q18H1M [facility] Rx#:[id number] Norepinephrine 4 mg In 138.286 Sodium Chloride 0.9% 250 ml @ 0.05 MCG/KG/MIN 20. 306 mls/hr IV .[id number] [facility] Rx#:[id number] propofoL 1,000 mg In 200.000 388.406 47.102 Empty Bag 1 bag @ 5 MCG/ KG/MIN 3.489 mls/hr IV . Q24H [facility] Rx#:[id number] Tube Feeding 468 468 39 Other 800 800 Output: Urine 1110 1110 75 Other: Voiding Method Indwelling Catheter Indwelling Catheter ABP, PAP, CO, CI - Last Documented Arterial Blood Pressure 128/54 - Labs CBC & Chem 7: 10/29/21 04:20 10/29/21 04:20 Labs: Abnormal Lab Results - Last 24 Hours (Table) 10/28/21 10/28/21 10/28/21 Range/Units 11:35 17:51 20:50 WBC (3.8-10.6) k/uL RBC (4.30-5.90) m/uL Hgb (13.0-17.5) gm/dL Hct (39.0-53.0) % MCV (80.0-100.0) fL ABG pO2 (83-108) mmHg ABG Total CO2 (19-24) mmol/L Chloride (98-107) mmol/L BUN (9-20) mg/dL Creatinine (0.66-1.25) mg/dL Glucose (74-99) mg/dL POC Glucose (mg/dL) 216 H 197 H 133 H (75-99) mg/dL Calcium (8.4-10.2) mg/dL 10/29/21 10/29/21 10/29/21 Range/Units 00:02 04:20 04:20 WBC 17.3 H (3.8-10.6) k/uL RBC 3.08 L (4.30-5.90) m/uL Hgb 10.1 L (13.0-17.5) gm/dL Hct 31.6 L (39.0-53.0) % MCV 102.9 H (80.0-100.0) fL ABG pO2 (83-108) mmHg ABG Total CO2 (19-24) mmol/L Chloride 108 H (98-107) mmol/L BUN 112 H* (9-20) mg/dL Creatinine 2.42 H (0.66-1.25) mg/dL Glucose 104 H (74-99) mg/dL POC Glucose (mg/dL) 127 H (75-99) mg/dL Calcium 7.1 L (8.4-10.2) mg/dL 10/29/21 10/29/21 Range/Units 05:12 06:36 WBC (3.8-10.6) k/uL RBC (4.30-5.90) m/uL Hgb (13.0-17.5) gm/dL Hct (39.0-53.0) % MCV (80.0-100.0) fL ABG pO2 75 L (83-108) mmHg ABG Total CO2 27 H (19-24) mmol/L Chloride (98-107) mmol/L BUN (9-20) mg/dL Creatinine (0.66-1.25) mg/dL Glucose (74-99) mg/dL POC Glucose (mg/dL) 108 H (75-99) mg/dL Calcium (8.4-10.2) mg/dL Microbiology - Last 24 Hours (Table) 10/26/21 14:44 Blood Culture Gram Stain - Preliminary Blood Blood Culture - Preliminary Presumptive Staph aureus 10/25/21 01:49 Blood Culture - Preliminary Blood No Growth after 96 hours 10/27/21 14:00 Blood Culture - Preliminary Blood No Growth after 24 hours 10/25/21 23:40 Gram Stain - Final Sputum Sputum Culture - Final 10/26/21 14:53 Blood Culture Gram Stain - Preliminary Blood Assessment and Plan Plan: Assessment: 1. Acute kidney injury secondary to ATN secondary to septic shock. Creatinine was 2.59 on admission and peaked at 3.56 this admission - stable at 2.42 today. Nonoliguric. No hydronephrosis noted on kidney ultrasound. Elevated BUN secondary to hypercatabolic state. Not on steroids. No evidence of GI bleed. 2. Septic shock secondary to staph aureus UTI and bacteremia on antibiotics. Infectious disease following. 3. Chronic kidney disease stage IIIA with baseline creatinine in the range of 1.5-1.7 secondary to diabetic kidney disease. 4. Metabolic acidosis secondary to acute kidney injury and IV fluids. Status post bicarb drip. Improved. 5. Hypernatremia from lack of oral water intake. Improved. 6. Hypokalemia from poor intake. Being replaced. 7. Diabetes mellitus. Serum acetone positive. Status post insulin drip. 8. Volume overload. 9. Atrial tachycardia. On amiodarone drip. Cardiology following. Plan: Lasix added this morning by ICU team. Decrease free water flushes to 300 mL every 6 hours with tube feeds. Avoid nephrotoxins. Continue to monitor renal function and urine output. Preserved ejection fraction with moderate LVH noted on echocardiogram. Phosphorus 3.5 dated 10/24/21. Replace potassium. Wean FiO2.
[2021-10-29 10:10] LABS: Glucose,Whole Blood 102 mg/dL (75-99)
[2021-10-29] MEDS: INSULIN DETEMIR (LEVEMIR) 100 UNIT/ML SYR SQ SCH ×2 (10:55→20:25)
[2021-10-29 11:39] LABS: Glucose,Whole Blood 116 mg/dL (75-99)
[2021-10-29] MEDS: ACETAMINOPHEN TAB 325 MG TAB PO PRN ×2 (11:57→23:53)
--- NOTE | 2021-10-29 15:02 | P.PN ---
Subjective Progress Note Date: 10/29/21 Patient is evaluated today in the intensive care unit with family at the bedside. Taking over care for Dr. Daniels today. He continues on mechanical vent with FiO2 of 40%, oxygen saturation is 100%, He has fever today 101.8. He is still in atrial tachycardia in the 100's and continues on the amiodarone infus ion. Blood pressure 100/40s. Patient had sedation holiday earlier today per nurse and possibly wiggled toes, but otherwise no other commands followed. He underwent repeat chest xray today showing acute cardiopulmonary disease with mild interval worsening compared to previous. Blood culture are comtinuing to grow gram positive which is consistent with staph bacteremia. He continues on nafcillin IV, and gentimicin was stopped today. Otherwise he continues on propofol gtt, and lasix IV was decreased to daily today. Plan to undergo CT angiogram of head to assess for myocytic aneurysm once renal function has stabilized. Creatinine has increased today. Patient is being followed closely by multiple consultations and for now cardiothoracic has determined patient is not a surgical candidate. Family is discussing the possibility of comfort care measures. Labs reviewed today showing white count 17.3, hgb 10.1, sodium 143, potassium 3.6, chloride 108, BUN 112, Creat 2.42, calcium 7.1, blood glucose 116. Unable to complete full review of systems as patient is intubated PHYSICAL EXAMINATION: Gen: This is a morbidly obese 55-year-old male. He continues on mechanical ventilator monitored in ICU HEENT: Head is atraumatic, normocephalic. Pupils equal, round. Sclerae is anicteric. NECK: Supple. No JVD. No lymphadenopathy. No thyromegaly. LUNGS: Diminished with a few scattered rhonchi. No intercostal retractions. HEART: Regular rate and rhythm. No murmur. ABDOMEN: Soft. Bowel sounds are present, hypoactive. No masses. No tenderness. EXTREMITIES: No pedal edema. No calf tenderness. SKIN: There is scabbed lesion to right forearm. 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 -Leukocytosis, secondary to above Left parietal cortical and subcortical infarcts or infective embolic source secondary to MSSA endocarditis involving the mitral valve, cardiothoracic is following patient Acute hypoxic respiratory failure requiring intubation and mechanical ventilation -SVT was likely secondary to sepsis also atrial tachycardia patient is now on amiodarone drip -Metabolic encephalopathy secondary to sepsis, DTs, DKA, acute kidney injury -Acute on chronic kidney disease stage III -Delirium tremens prior to intubation patient was started on CIWA protocol at that time which has now been discontinued -DKA and patient was diabetes mellitus type 1 usually maintained on insulin pump. Pump is currently turned off and patient was transitioned off the insulin drip and continues on Levemir 25 twice a day as well as NovoLog every 6 and scale. Blood sugars are stable in the 100s. -Anion gap metabolic acidosis secondary to acute kidney injury and DKA, status post sodium bicarb -Elevated troponins, acute coronary syndrome ruled out, cardiology is following patient closely -Thrombocytopenia most at this secondary to sepsis, following trends Hyponatremia initially which patient was hypernatremic yesterday, down to 143 today, nephrology is following patient -Hypertension, patient is currently normotensive, lisinopril is on hold -History of COPD History dementia continues on Aricept daily Hyperlipidemia, continues on Lipitor daily Gastroesophageal reflux disease and GI prophylaxis, Protonix IV daily History of acute respiratory failure requiring intubation secondary to polysubstance abuse which included narcotics and alcohol History of liver cirrhosis secondary to alcohol abuse History of seizure disorder not currently on Keppra Generalized anxiety disorder and recurrent depression daily crack cocaine use -Chronic daily alcohol use -DVT Prophylaxis Full Code Prognosis for this patient is poor, he continues in intensive care unit maintained on mechanical ventiliation being followed by multiple consultations including, infectious disease, neurology, cardiology, ICU building trades instructor, nephrology, cardiothoracic. Patient continues on tube feedings, he is on IV propofol for sedation. He will undergo repeat chest x-ray in the morning. IV Lasix has been decreased to daily today. He is IV antibiotics in the form of IV nafcillin, white count continues to increase. Family has not made decision regarding trach and PEG tube will follow up tomorrow. The impression and plan of care has been dictated by Didi Christiansen Nurse Practitioner as directed. Dr. Griselda MD I have performed a history and physical examination and medical decision making of this patient, discussed the same with the dictator, and agree with the dictators assessment and plan as written, documented as a scribe. Based on total visit time, I have performed more than 50% of this visit. Objective - Vital Signs Vital signs: Vital Signs Temp 101.8 F H 10/29/21 12:00 Pulse 76 10/29/21 14:00 Resp 28 H 10/29/21 14:00 BP 118/64 10/27/21 16:00 Pulse Ox 100 10/29/21 14:00 FiO2 40 10/29/21 12:00 Intake & Output 10/28/21 10/29/21 10/29/21 18:59 06:59 18:59 Intake Total 2099.436 2556.404 1253.055 Output Total 1110 1110 1020 Balance 035.635 9341.404 233.055 Weight 114.9 kg Intake: IV 240 540 360 .9 @ 20 240 240 160 Nafcillin 2 gm In 300 200 Dextrose 5% in Water 100 ml @ 50 mls/hr IVPB Q4HR [facility] Rx#:[id number] Intake, IV Titration 591.436 748.404 281.055 Amount Amiodarone 360 mg In 200 359.998 177.776 Dextrose 5% in Water 200 ml @ 1 MG/MIN 33.333 mls/ hr IV .Q6H [facility] Rx#: [id number] Dexmedetomidine/0.9% NaCl 53.15 (Pmx) 400 mcg In Empty Bag 1 bag @ 0.2 MCG/KG/HR 5.555 mls/hr IV .Q18H1M [facility] Rx#:[id number] Norepinephrine 4 mg In 138.286 56.177 Sodium Chloride 0.9% 250 ml @ 0.05 MCG/KG/MIN 20. 306 mls/hr IV .[id number] [facility] Rx#:[id number] propofoL 1,000 mg In 200.000 388.406 47.102 Empty Bag 1 bag @ 5 MCG/ KG/MIN 3.489 mls/hr IV . Q24H [facility] Rx#:[id number] Tube Feeding 468 468 312 Other 800 800 300 Output: Urine 1110 1110 1020 Other: Voiding Method Indwelling Catheter Indwelling Catheter ABP, PAP, CO, CI - Last Documented Arterial Blood Pressure 91/52 - Labs CBC & Chem 7: 10/29/21 04:20 10/29/21 04:20 Labs: Abnormal Lab Results - Last 24 Hours (Table) 10/28/21 10/28/21 10/29/21 Range/Units 17:51 20:50 00:02 WBC (3.8-10.6) k/uL RBC (4.30-5.90) m/uL Hgb (13.0-17.5) gm/dL Hct (39.0-53.0) % MCV (80.0-100.0) fL ABG pO2 (83-108) mmHg ABG Total CO2 (19-24) mmol/L Chloride (98-107) mmol/L BUN (9-20) mg/dL Creatinine (0.66-1.25) mg/dL Glucose (74-99) mg/dL POC Glucose (mg/dL) 197 H 133 H 127 H (75-99) mg/dL Calcium (8.4-10.2) mg/dL 10/29/21 10/29/21 10/29/21 Range/Units 04:20 04:20 05:12 WBC 17.3 H (3.8-10.6) k/uL RBC 3.08 L (4.30-5.90) m/uL Hgb 10.1 L (13.0-17.5) gm/dL Hct 31.6 L (39.0-53.0) % MCV 102.9 H (80.0-100.0) fL ABG pO2 75 L (83-108) mmHg ABG Total CO2 27 H (19-24) mmol/L Chloride 108 H (98-107) mmol/L BUN 112 H* (9-20) mg/dL Creatinine 2.42 H (0.66-1.25) mg/dL Glucose 104 H (74-99) mg/dL POC Glucose (mg/dL) (75-99) mg/dL Calcium 7.1 L (8.4-10.2) mg/dL 10/29/21 10/29/21 10/29/21 Range/Units 06:36 10:08 11:37 WBC (3.8-10.6) k/uL RBC (4.30-5.90) m/uL Hgb (13.0-17.5) gm/dL Hct (39.0-53.0) % MCV (80.0-100.0) fL ABG pO2 (83-108) mmHg ABG Total CO2 (19-24) mmol/L Chloride (98-107) mmol/L BUN (9-20) mg/dL Creatinine (0.66-1.25) mg/dL Glucose (74-99) mg/dL POC Glucose (mg/dL) 108 H 102 H 116 H (75-99) mg/dL Calcium (8.4-10.2) mg/dL Microbiology - Last 24 Hours (Table) 10/28/21 14:52 Blood Culture - Final Blood 10/26/21 02:45 Gram Stain - Preliminary Throat Tissue Culture - Preliminary Presumptive Staph aureus 10/27/21 14:00 Blood Culture - Final Blood 10/26/21 14:44 Blood Culture Gram Stain - Preliminary Blood Blood Culture - Preliminary Presumptive Staph aureus 10/25/21 01:49 Blood Culture - Preliminary Blood No Growth after 96 hours 10/25/21 23:40 Gram Stain - Final Sputum Sputum Culture - Final Assessment and Plan Time with Patient: Less than 30
[2021-10-29] MEDS: NOREPINEPHRINE 4 MG in SODIUM CHLORIDE 0.9% 250 ML IV SCH ×2 (17:02→20:25)
[2021-10-29 17:37] LABS: Glucose,Whole Blood 125 mg/dL (75-99)
--- NOTE | 2021-10-29 18:46 | CT ---
EXAMINATION TYPE: CT brain wo con DATE OF EXAM: 10/29/2021 COMPARISON: 10/26/2021 HISTORY: Previous stroke. CT DLP: 1188.4 mGycm Automated exposure control for dose reduction was used. There is some cerebral cortical atrophy. There is enlargement of the sylvian fissures. There is old a nterior right temporal lobe cortical infarct. There is no mass effect or midline shift. No sign of in tracranial hemorrhage. Calvarium is intact. There is normal aeration of the mastoid sinuses. There is a 3 x 1 cm area of hypodensity left occipital lobe consistent with old infarct. There is 1.5 cm hypo density left parietal lobe consistent with old infarct. IMPRESSION: Old cortical infarcts. No acute intracranial abnormality. No change compared to recent exam.
--- NOTE | 2021-10-29 20:14 | P.PN ---
Subjective Progress Note Date: 10/29/21 Principal diagnosis: Sepsis and bacteremia Patient is a 55-year-old male with a past medical history significant for insulin-dependent diabetes mellitus presented to hospital with weakness and mental status changes and elevated blood sugar, patient did have evidence of MSSA bacteremia. Patient did have a CRYSTAL completed on 10/26/2021 with evidence of mitral valve endocarditis On today's evaluation that is 10/29/2021, patient is afebrile, the patient is on amiodarone and also requiring low-dose pressor support, the patient FiO2 is stable at 40%, and no significant purulent secretion through the ET reported by the nursing staff and no diarrhea Objective - Vital Signs Vital signs: Vital Signs Temp 96.7 F L 10/29/21 16:00 Pulse 73 10/29/21 19:00 Resp 19 10/29/21 19:00 BP 118/64 10/27/21 16:00 Pulse Ox 98 10/29/21 19:00 FiO2 40 10/29/21 16:00 Intake & Output 10/29/21 10/29/21 10/30/21 06:59 18:59 06:59 Intake Total 2556.404 2045.490 59 Output Total 1110 1730 50 Balance 1446.404 315.490 9 Intake: IV 540 540 20 .9 @ 20 240 240 20 Nafcillin 2 gm In 300 300 Dextrose 5% in Water 100 ml @ 50 mls/hr IVPB Q4HR [facility] Rx#:[id number] Intake, IV Titration 748.404 515.490 Amount Amiodarone 360 mg In 359.998 343.885 Dextrose 5% in Water 200 ml @ 1 MG/MIN 33.333 mls/ hr IV .Q6H [facility] Rx#: [id number] Norepinephrine 4 mg In 56.177 Sodium Chloride 0.9% 250 ml @ 0.05 MCG/KG/MIN 20. 306 mls/hr IV .[id number] [facility] Rx#:[id number] propofoL 1,000 mg In 388.406 115.428 Empty Bag 1 bag @ 5 MCG/ KG/MIN 3.489 mls/hr IV . Q24H [facility] Rx#:[id number] Tube Feeding 468 390 39 Other 800 600 Output: Urine 1110 1730 50 Other: Voiding Method Indwelling Catheter Indwelling Catheter ABP, PAP, CO, CI - Last Documented Arterial Blood Pressure 131/56 - Exam GENERAL DESCRIPTION: Middle-aged male intubated on the vent RESPIRATORY SYSTEM: Unlabored breathing , decreased breath sounds at bases HEART: S1 S2 regular rate and rhythm , ABDOMEN: Soft , no tenderness EXTREMITIES: No edema feet - Labs CBC & Chem 7: 10/29/21 04:20 10/29/21 04:20 Labs: Abnormal Lab Results - Last 24 Hours (Table) 10/28/21 10/29/21 10/29/21 Range/Units 20:50 00:02 04:20 WBC 17.3 H (3.8-10.6) k/uL RBC 3.08 L (4.30-5.90) m/uL Hgb 10.1 L (13.0-17.5) gm/dL Hct 31.6 L (39.0-53.0) % MCV 102.9 H (80.0-100.0) fL ABG pO2 (83-108) mmHg ABG Total CO2 (19-24) mmol/L Chloride (98-107) mmol/L BUN (9-20) mg/dL Creatinine (0.66-1.25) mg/dL Glucose (74-99) mg/dL POC Glucose (mg/dL) 133 H 127 H (75-99) mg/dL Calcium (8.4-10.2) mg/dL 10/29/21 10/29/21 10/29/21 Range/Units 04:20 05:12 06:36 WBC (3.8-10.6) k/uL RBC (4.30-5.90) m/uL Hgb (13.0-17.5) gm/dL Hct (39.0-53.0) % MCV (80.0-100.0) fL ABG pO2 75 L (83-108) mmHg ABG Total CO2 27 H (19-24) mmol/L Chloride 108 H (98-107) mmol/L BUN 112 H* (9-20) mg/dL Creatinine 2.42 H (0.66-1.25) mg/dL Glucose 104 H (74-99) mg/dL POC Glucose (mg/dL) 108 H (75-99) mg/dL Calcium 7.1 L (8.4-10.2) mg/dL 10/29/21 10/29/2110/29/22 Range/Units 10:08 11:37 17:35 WBC (3.8-10.6) k/uL RBC (4.30-5.90) m/uL Hgb (13.0-17.5) gm/dL Hct (39.0-53.0) % MCV (80.0-100.0) fL ABG pO2 (83-108) mmHg ABG Total CO2 (19-24) mmol/L Chloride (98-107) mmol/L BUN (9-20) mg/dL Creatinine (0.66-1.25) mg/dL Glucose (74-99) mg/dL POC Glucose (mg/dL) 102 H 116 H 125 H (75-99) mg/dL Calcium (8.4-10.2) mg/dL Microbiology - Last 24 Hours (Table) 10/28/21 14:52 Blood Culture Gram Stain - Preliminary Blood Blood Culture - Preliminary Staphylococcus aureus 10/27/21 14:00 Blood Culture Gram Stain - Preliminary Blood 10/28/21 14:52 Blood Culture - Final Blood 10/26/21 02:45 Gram Stain - Preliminary Throat Tissue Culture - Preliminary Presumptive Staph aureus 10/27/21 14:00 Blood Culture - Final Blood 10/26/21 14:44 Blood Culture Gram Stain - Preliminary Blood Blood Culture - Preliminary Presumptive Staph aureus 10/25/21 01:49 Blood Culture - Preliminary Blood No Growth after 96 hours Assessment and Plan (1) Bacteremia Current Visit: Yes Status: Acute Code(s): R78.81 - BACTEREMIA SNOMED Code(s): 4530186 Plan: 1patient presented to hospital with weakness in this patient did have a fever tachycardia meeting criteria for sepsis though initial work-up for a source has been negative with a negative UA chest x-ray did not show any acute abnormality patient abdominal was soft clinical examination and no evidence of any lower extremity cellulitis or joint swelling. Ultrasound negative for any hydronephrosis or cholecystitis 2patient did have persistent MSSA bacteremia concerning for endovascular source, CRYSTAL did shows evidence of mitral valve endocarditis and there is a questionable possible septic emboli to the brain, repeat blood culture from 10/29/2019 came back positive, blood cultures will be repeated to document clearance of bacteremia, patient to continue with Naficillin , rifampin could not be added as the patient is on amiodarone Parents at the bedside who did have multiple questions were answered in Layman terms time spent has been 30 minutes Time with Patient: Greater than 30
[2021-10-29 20:32] LABS: Glucose,Whole Blood 120 mg/dL (75-99)
[2021-10-29 23:46] LABS: Glucose,Whole Blood 103 mg/dL (75-99)
[2021-10-30] MEDS: NOREPINEPHRINE 4 MG in SODIUM CHLORIDE 0.9% 250 ML IV SCH ×4 (04:17→23:14)
[2021-10-30] MEDS: NAFCILLIN 2 GM in DEXTROSE 5% IN WATER 100 ML IVPB SCH ×10 (04:20→21:16)
[2021-10-30 04:33] VITALS: BP 130/67
[2021-10-30 05:31] LABS: HCT 33.7 % (39.0-53.0); HGB 10.3 gm/dL (13.0-17.5); Hypochromasia Slight; MCH 30.9 pg (25.0-35.0); MCHC 30.5 g/dL (31.0-37.0); MCV 101.5 fL (80.0-100.0); Macrocytosis Slight; Platelet Count 287 k/uL (150-450); RBC 3.32 m/uL (4.30-5.90); RDW 14.3 % (11.5-15.5); WBC 24.9 k/uL (3.8-10.6)
[2021-10-30 05:49] LABS: Potassium 3.2 mmol/L (3.5-5.1)
[2021-10-30 06:00] LABS: ABG HCO3 25 mmol/L (21-25); ABG PCO2 37 mmHg (35-45); ABG PH 7.44 (7.35-7.45); ABG PO2 69 mmHg (83-108); ABG TCO2 26 mmol/L (19-24)
[2021-10-30 06:09] LABS: Allen Test Performed? No
[2021-10-30 06:17] LABS: C Reactive Protein 33.1 mg/dL (<1.0)
[2021-10-30] MEDS: AMIODARONE 360 MG in DEXTROSE 5% IN WATER 200 ML IV SCH ×4 (06:26→22:48)
[2021-10-30] MEDS: INSULIN ASPART (NovoLOG) 100 UNIT/ML VIAL SQ SCH ×6 (06:26→17:56)
--- NOTE | 2021-10-30 06:50 | XR ---
EXAMINATION TYPE: XR chest 1V portable DATE OF EXAM: 10/30/2021 COMPARISON: 10/29/2021 HISTORY: ET tube placement TECHNIQUE: Single frontal view of the chest is obtained. FINDINGS: There is an ET tube 5.3 cm above the pamela. There is a left central venous catheter tip i n the SVC/RA junction. There is an NG tube within the stomach. There is no change in the retrocardiac opacity or in the moderate pulmonary vascular congestion. IMPRESSION: 1. ET tube 5.2 cm above the pamela. 2. No change in the acute cardiopulmonary disease.
[2021-10-30] MEDS: IPRATROPIUM-ALBUTEROL 3 ML NEB INHALATION SCH ×3 (07:11→20:23)
[2021-10-30] MEDS ORDERED: POTASSIUM BICARBONATE/CIT AC 20 MEQ TABLET.EFF PO ONE (08:00)
[2021-10-30] MEDS: HYDROmorphone 1 MG/ML 1 ML SYRINGE IVP PRN ×3 (08:55→17:01)
--- NOTE | 2021-10-30 09:00 | P.PN ---
Subjective Progress Note Date: 10/30/21 10/24/2021, [facility] patient for a follow-up in the patient is altered mentally and the patient is still going through delirium tremens. The patient is currently on Precedex running at 0.2 mcg/kg per minute. Note that the patient is a 55-year-old female patient with known history of diabetes mellitus type 1, hypertension, chronic kidney disease, COPD, dementia, alcohol abuse and crack cocaine abuse. Patient currently is calm and comfortable. Arousable. He is not following commands consistently. At times, gets restless and agitated and the Precedex dose being titrated by the nursing staff here in the intensive care unit. The patient remains on IV fluids with normal saline at the rate of 75 mL an hour. Urine output is adequate. The patient is currently not requiring any pressors. Overall fluid balance is +2.8 L over the past 24 hours and the patient remains on IV Solu regarding MSSA septicemia. Note that the patient's urine culture and blood culture both indicated MSSA. The patient is currently on 4 L about 2 by nasal cannula. The white cell count is at 10.2 with a hemoglobin of 11 and a platelet count of 193. At the same time, the patient has a sodium level of 142, serum bicarbonate is 18 with a BUN of 101 and a creatinine of 2.85 which is improved compared to yesterday. The total protein is at 5.6 with an albumin level of 2.5. The patient otherwise is resting comfortably in bed. No other significant events over the past 24 hours. Nephrology saw the patient and patient was switched from normal saline to a bicarb infusion to counteract his metabolic acidosis. Meanwhile, the patient on Levemir insulin 25 units twice a day and a NovoLog sliding scale coverage. He remains on Protonix. No other significant issues overnight. 10/25/2021, I'm seeing the patient for a follow-up. Events from yesterday evening were noted. The patient went into a tachycardic rhythm/sinus tachycardia versus SVT and the patient was quite lethargic, and unresponsive. He was breathing was also labored. That point, decided to proceed with intubation and the patient was intubated by the LICENSED PSYCHIATRIC TECHNICIAN overnight and he was placed on a mechanical ventilator. This morning, is converted back into normal sinus rhythm. His not receiving any effusions REGARDING his heart rate. He did receive Cardizem yesterday which was discontinued after the patient's potassium converted into normal sinus rhythm. He is currently on propofol running at 40 mg/kg per minute. He is calm and comfortable. He is quite cigarettes a mechanical ventilator. He is an assist-control mode of mechanical ventilation at the rate of 26 with an FiO2 of 50% with a PEEP of 5 and tidal volume of 400. Chest x-ray postintubation shows increased pulmonary vessel markings and pulmonary vessel congestion and edema. The blood gases from today shows a pH of 7.43 with a pCO2 of 37 and pO2 116 and this was done and FiO2 of 70%. Peak airway pressures around 18. The patient is on IV fluids at [facility]. He did receive bicarb infusion yesterday and his acid base status is improved considerably. White cell count of 15.1 with a hemoglobin above 7 and a platelet count of 232. Sodium is at 145 with a potassium level of 3.8 150 with a bicarb of 23. BUN is 106 and creatinine is at 2.6. Note that his renal function has improved compared to yesterday knowing that his creatinine from yesterday was at 2.8. The patient is currently nothing by mouth. He is well sedated. He is afebrile. He is on Levemir insulin 25 units twice a day along with a NovoLog sliding scale coverage. He is on IV cefazolin. Repeat cultures is again positive for gram-positive cocci and the patient is still persistently bacteremic and he herminio ins on IV Kefzol 2 g every 8 hours. The baseline echocardiogram transthoracic showed no evidence of any regurgitation, high likelihood for infective endocarditis in this patient. Comorbid conditions include type 1 diabetes mellitus, chronic kidney disease, COPD, dementia, alcoholism and crack cocaine use. He also has history of hypertension. 10/26/2021, the patient is being seen for a follow-up. The patient is currently still intubated on a mechanical ventilator and the patient is currently on propofol running at the rate of 30 milligrams per kilogram per minute. The patient's is grimacing to deep painful stimulation and he senses pain in all 4 extremities. Does not follow any commands at this point in time. A CAT scan of the brain was performed yesterday and there is a concern for septic emboli as the CAT scan of the brain showed interval development of a left frontal and parietal cortical and subcortical infarcts which could represent watershed infarct versus septic emboli. Neurology was again involved in the case and there were asked to reconsult on him. He is currently placed on aspirin. Carotid Dopplers are in progress. No seizure activity has been noted. On today's evaluation, the patient remains essentially the same mechanical ventilator setting with a rate of 26, tidal volume of 400, FiO2 of 50% with a PEEP of 5. Lung scan showed pH of 7.49 with a pCO2 of 37 and pO2 of 84. The chest x-ray from today shows adequate expansion of both lungs. ET tube is in a good location. No airspace disease or consolidation. In terms of cultures, the patient's positive blood cultures were consistent with MSSA and the patient was further switched from IV cefazolin to IV nafcillin per recommendations done by infectious disease. Cardiac rhythm is currently sinus and the patient is on no pressors. He is receiving enteral feeding for nutritional support and the sandrine ent is currently on Levemir 25 units twice a day along with a NovoLog sliding scale coverage. Note that overnight, the patient had an episode where he became quite restless and agitated and tachypneic. He also had some mild hypoxemia. He was suctioned and a large mucous plug was aspirated and Zosyn and also for cultures. As mentioned, the patient remains on IV nafcillin for now. No pressors at this point in time. He is afebrile. The plan for today is to proceed with a CRYSTAL. A carotid Doppler is also in progress. Overall fluid balance over the past 24 hours has been -1.4 L and the patient is receiving Lasix 40 m IV every 24 hours. Enterofeeding is in the form of vital high protein. Comorbid conditions include diabetes mellitus type 1, COPD, dementia, alcoholism, hypertension and crack cocaine use. His white cell count today is at 13.6 with a hemoglobin of 9.9. Sodium is 146, BUN is at 118 with a creatinine of 2.4 and as noted, the patient has a component of chronic kidney di sease. LFTs are stable at this point in time. Bilirubin is at 1.5 slightly higher yet AST is at 147 and ALT is at 17 with an alkaline phosphatase of 129. 10/27/2021, the patient remains intubated on mechanical ventilator. He is a case of infective endocarditis and this was confirmed by a CRYSTAL indicating vegetation involving the mitral valve. Overall clinical presentation is consistent with infective endocarditis secondary to underlying sepsis with septic emboli to the brain. CRYSTAL showed large vegetation involving the posterior mitral leaflet with a smaller vegetation involving the anterior mitral leaflet and mild degree of mitral regurgitation. LV function was essentially within normal limits. The patient was also found to have a small atrial septal defects. The patient is still on a mechanical ventilator. The patient is sedated currently with propofol running at 25 mcg/kg per minute. He is an assist-control mode of mechanical ventilation at the rate of 26 with a tidal volume of 400 and FiO2 of 40% with a PEEP of 5. Blood gases showed pH of 7.49 with a pCO2 of 34 and pO2 of 77. The chest x-ray from today is showing adequate positioning of the orotracheal tube. The patient has no evidence of any pneumothorax. The patient has stable left sided atelectasis/effusion along with some right perihilar haziness. Overall chest x-ray findings are essentially stable for now. He was dynamically he is on no pressors. He is maintaining his own blood pressure. His cardiac rhythm is sinus for now. In terms of his mental status, the patient will be given a sedation holiday today. A repeat CAT scan of the head was done yesterday and it showed anterior right temporal and l eft occipital lobe and left parietal lobe infarcts. No evidence of any intracranial hemorrhage. There is underlying cerebral atrophy. Underlying mental status will be evaluated after the patient is weaned off the propofol. Meanwhile, the repeat blood cultures from 10/25/2021 has shown no gross and the last positive blood culture was from 10/23/2021. The sputum Gram stain and culture is showing no microbial organisms for now. The patient remains on IV nafcillin for now. Terms of his fluid balance, the patient has been negative fluid balance of 1.2 L over the past 24 hours. His IV fluids are in the form of 0.9 at the rate of 10 mL an hour. His sodium level today is up 250 with a potas sium level of 3.5. The BUN is at 123 with a creatinine of 2.4 and a potassium level is at 3.5. Liver function tests remain mildly elevated in terms of the alkaline phosphatase. The bilirubin is also is on the rise at 2.5. The white cell count today is at 12.2 with a hemoglobin 9.9 and platelet count of 305. The patient is receiving enteral feeding for nutritional support and currently is on vital high protein at the rate of 39 mL an hour. He is febrile and low- grade fever 10/28/2021, I'm seeing the patient for a follow-up. Our concern was his ongoing mental status and I want to give the patient sedation holiday yesterday. I gradually asked the nurses to wean off the propofol and this was this patient to Precedex. We were able to do this switch and the patient was doing well till in the evening when he started getting quite agitated. At that point, I was contacted by the nursing staff and I asked the nurses to start back the propofol. However there was a concern with his blood pressure and probable was not started and the patient was kept only on Precedex. Earlier this morning, the patient was quite agitated. He was restless. He was tachypneic and tachycardic and he went into an SVT. During the process, he was given adenosine 6 mg IV and converted back into normal sinus rhythm. His mentation was fluctuating. He was evaluated by neurology and he was not following commands consistently. At that point, the patient was restarted back on propofol which is running at 50 mcg/kg per minute and the patient is currently off Precedex. His mentation is obviously still abnormal and it does not recovered. Meanwhile, the patient remains an assist-control mode of mechanical ventilation. He is on a rate of 26 with tidal volume of 400 and FiO2 of 40% with a PEEP of 5. Chest x-ray remains unchanged. ET tube remains inotropic and may need to be pushed and by around 1 cm. Meanwhile, the blood gases from today showed a pH of 7.46 with a pCO2 of 38 and pO2 of 89. His current cardiac rhythm is sinus. He is on low-dose pressors and the patient is on norepinephrine running at 0.01 mcg/kg per minute. He remains on IV nafcillin. Most recent blood cultures have shown persistent bacteremia as the blood culture from 10/26/2021 was again positive for gram-positive cocci which will vehicle return associate to be an MSSA. The rest of the blood work from today shows a white cell count of 13.7 with a hemoglobin around 9.9 and a platelet count of 327. The electrolytes are within normal limits. BUN is 118 and creatinine of 2.37 and the patient is known to have chronic kidney disease. Pro-calcitonin from 10/24/2021 was 55.5. He is on enteral feeding for nutritional support and he is currently receiving Vital HP rate of 39 mL an hour. The patient continues to be febrile with a T-max of 101.8. 10/29/2021,, the patient remains sedated. The patient has had difficulties and recovering from sedation due to extreme agitation and is secondary with a mechanical ventilator and cardiac arrhythmias. Attempts to wean him off the sedation put the patient into atrial tachycardia. Cardiology evaluated the patient. The patient was started on amiodarone 1 mg per minute loading and this needs to be followed up with subsequent maintenance. This morning, the patient is sedated with propofol running at 50 mcg/kg per minute. His well rested and comfortable. He remains on a mechanical ventilator on assist control mode and the ventilator settings are essentially unchanged at the rate of 26 with tidal volume of 400 and FiO2 of 40% with a PEEP of 5. Blood gases showed a pH of 7.43 with a pCO2 of 38 and pO2 of 75 and a chest x-ray from today shows essentially no significant interval change. ET tube remains in a good location. The patient has a left subclavian triple-lumen catheter in place. At the same time, there are some infiltrates in the left lower lobe along with a small effusion. His infiltrates are also present in the right perihilar and right lower lobe area. The patient is having limited to respiratory secretions. Hemodynamically, he is stable on no pressors. His white cell count is at 17.3 and the most recent blood cultures from 10/26/2021 were positive for staph aureus. There is another blood culture that was sent on 10/27/2021 and he does not shown any growth thus far. The patient remains on IV nafcillin. He is running a low-grade fever with a T-max of 100.2F. His current cardiac rhythm is sinus. He was having atrial tachycardia. He was started on amiodarone loading by cardiology. His white cell count is at 17.3 with a hemoglobin of 10.1 both being stable with some elevation in the white cell count. Platelet counts are 296. BUN is 112 with a creatinine of 2.42 and the sodium level is at 143. The patient remains on enteral feeding for nutritional support. He is receiving vital high protein at the rate of 39 mL an hour. The patient is also receiving water. His flushes through his OG 400 mL every 6 hours. His sodium level has essentially normalized at is down to 143. The overall fluid balance over the past 24 hours is +3 L and the patient seventh hours a positive fluid balance 10/30/2021, the patient is sedated on propofol which is running at 50 mcg/kg per minute. The patient was given a sedation holiday yesterday which essentially failed as the patient did not have any reasonable neurologic recovery or adequate level of alertness and he did not follow follow commands consistently. On few occasions he was able to wiggle his toes upon demand. He became very agitated and patient ultimately was placed back on sedation. Mother the patient has infective endocarditis of the mitral valve and the patient blood cultures are persistently positive and bacteremic and the patient is not a surgical candidate. The patient remains on a mechanical ventilator. The patient is an assist-control mode at the rate of 28 and a tidal volume of 400 and FiO2 of 65% with a PEEP of 5. The blood gases from today shows a pH of 7.44 with a pCO2 of 37 and pO2 of 69. This was not an FiO2 of 40%. The chest x-ray from today remains essentially unchanged. ET tube remains in a good location the patient has some infiltrates/atelectatic changes in the lung bases more so on the left. The patient also has a triple lumen catheter in place. At the same time, due to ongoing altered mentation, the patient underwent a repeat CAT scan of his brain that showed no significant interval change. There was no evidence of any acute bleeding. No interval progression of the abnormal finding and the patient has cortical infarcts as mentioned earlier with a 3 x 1 cm area in the left occipital lobe consistent with old infarct another 1.5 cm left parietal lobe consistent with old infarct and the patient has an old anterior right temporal lobe cortical infarcts. The patient continues to be febrile. The patient continues to be on IV nafcillin. The patient continues to be on pressors and the patient is on norepinephrine infusion running at 0.04 mcg/kg per minute. Overall fluid balance on this patient over the past 24 hours has been +2.4 L. In terms of his blood work, the patient has a white cell count of 24 and a hemoglobin of 10.3. Sodium is at 142, BUN is 1 a 7 and a creatinine of 1.8 and sodium level is at 142. He is still on enteral feeding for nutritional support and the patient is on vital high protein at the rate of 30 mL an hour. The patient is still in a normal sinus rhythm. No significant cardiac arrhythmias over the past 24 hours. He remains on IV amiodarone and will be switched to oral as of today. Objective - Vital Signs Vital signs: Vital Signs Temp 99.7 F H 10/30/21 07:00 Pulse 103 H 10/30/21 07:47 Resp 34 H 10/30/21 07:47 BP 130/67 10/30/21 02:00 Pulse Ox 95 10/30/21 07:00 FiO2 65 10/30/21 07:08 Intake & Output 10/29/21 10/30/21 10/30/21 18:59 06:59 18:59 Intake Total 2045.490 1824.720 111.006 Output Total 1730 1475 Balance 315.490 349.720 111.006 Intake: IV 540 560 .9 @ 20 240 260 Nafcillin 2 gm In 300 300 Dextrose 5% in Water 100 ml @ 50 mls/hr IVPB Q4HR [facility] Rx#:[id number] Intake, IV Titration 515.490 667.720 111.006 Amount Amiodarone 360 mg In 343.885 84.999 Dextrose 5% in Water 200 ml @ 1 MG/MIN 33.333 mls/ hr IV .Q6H [facility] Rx#: [id number] Norepinephrine 4 mg In 56.177 251.047 111.006 Sodium Chloride 0.9% 250 ml @ 0.05 MCG/KG/MIN 20. 306 mls/hr IV .[id number] [facility] Rx#:[id number] propofoL 1,000 mg In 115.428 331.674 Empty Bag 1 bag @ 5 MCG/ KG/MIN 3.489 mls/hr IV . Q24H [facility]GAN Rx#:[id number] Tube Feeding 390 507 Other 600 90 Output: Urine 1730 1475 Other: Voiding Method Indwelling Catheter Indwelling Catheter ABP, PAP, CO, CI - Last Documented Arterial Blood Pressure 136/55 - Exam Sedated, currently on propofol, sedated and calm and comfortable, secondary to mechanical ventilator , Orotracheal and orogastric tube are both in place Head exam was generally normal. There was no scleral icterus or corneal arcus. Mucous membranes were moist. Neck was supple and without jugular venous distension, thyromegaly, or carotid bruits. Carotids were easily palpable bilaterally. There was no adenopathy. Cardiovascular examination reveals regular rhythm rate. S1-S2 normal. No S3 or S4. No discernible murmur noted. Lungs reveal scattered bilateral rhonchi. Breath sounds equal. No wheezes. Abdominal exam revealed normal bowel sounds. The abdomen was soft, non-tender, and without masses, organomegaly, or appreciable enlargement of the abdominal aorta. Extremities are intact. No cyanosis clubbing or edema. The patient does have some areas of ecchymotic spots in his fingers in the left hand involving the fourth and fifth digit and this is consistent with septic emboli. Skin is without rash or lesion. Neurologic examination is nonfocal and the patient is withdrawing to deep p ainful stimulation. Currently sedated with propofol. - Labs CBC & Chem 7: 10/30/21 05:20 10/30/21 05:20 Labs: Abnormal Lab Results - Last 24 Hours (Table) 10/29/21 10/29/21 10/29/21 Range/Units 10:08 11:37 17:35 WBC (3.8-10.6) k/uL RBC (4.30-5.90) m/uL Hgb (13.0-17.5) gm/dL Hct (39.0-53.0) % MCV (80.0-100.0) fL MCHC (31.0-37.0) g/dL ABG pO2 (83-108) mmHg ABG Total CO2 (19-24) mmol/L Potassium (3.5-5.1) mmol/L BUN (9-20) mg/dL Creatinine (0.66-1.25) mg/dL POC Glucose (mg/dL) 102 H 116 H 125 H (75-99) mg/dL Calcium (8.4-10.2) mg/dL C-Reactive Protein (<1.0) mg/dL 10/29/21 10/29/21 10/30/21 Range/Units 20:30 23:44 05:20 WBC (3.8-10.6) k/uL RBC (4.30-5.90) m/uL Hgb (13.0-17.5) gm/dL Hct (39.0-53.0) % MCV (80.0-100.0) fL MCHC (31.0-37.0) g/dL ABG pO2 (83-108) mmHg ABG Total CO2 (19-24) mmol/L Potassium 3.2 L (3.5-5.1) mmol/L BUN 107 H* (9-20) mg/dL Creatinine 1.87 H (0.66-1.25) mg/dL POC Glucose (mg/dL) 120 H 103 H (75-99) mg/dL Calcium 7.0 L (8.4-10.2) mg/dL C-Reactive Protein 33.1 H (<1.0) mg/dL 10/30/21 10/30/21 Range/Units 05:20 05:31 WBC 24.9 H (3.8-10.6) k/uL RBC 3.32 L (4.30-5.90) m/uL Hgb 10.3 L (13.0-17.5) gm/dL Hct 33.7 L (39.0-53.0) % MCV 101.5 H (80.0-100.0) fL MCHC 30.5 L (31.0-37.0) g/dL ABG pO2 69 L (83-108) mmHg ABG Total CO2 26 H (19-24) mmol/L Potassium (3.5-5.1) mmol/L BUN (9-20) mg/dL Creatinine (0.66-1.25) mg/dL POC Glucose (mg/dL) (75-99) mg/dL Calcium (8.4-10.2) mg/dL C-Reactive Protein (<1.0) mg/dL Microbiology - Last 24 Hours (Table) 10/25/21 01:49 Blood Culture - Preliminary Blood No Growth after 120 hours 10/28/21 14:52 Blood Culture Gram Stain - Preliminary Blood Blood Culture - Preliminary Staphylococcus aureus 10/27/21 14:00 Blood Culture Gram Stain - Preliminary Blood 10/28/21 14:52 Blood Culture - Final Blood 10/26/21 02:45 Gram Stain - Preliminary Throat Tissue Culture - Preliminary Presumptive Staph aureus 10/27/21 14:00 Blood Culture - Final Blood 10/26/21 14:44 Blood Culture Gram Stain - Preliminary Blood Blood Culture - Preliminary Presumptive Staph aureus Assessment and Plan Plan: Infective endocarditis. The patient was found to have large vegetation involving the posterior leaflet of the mitral valve along with some mild mitral regurgitation. This is a MSSA related infective endocarditis. The patient has persistent bacteremia and the most recent blood culture from 2021 was positive. . The patient remains on nafcillin. The patient remains febrile. The patient is off pressors this morning. However on now. Required low-dose vasopressors. The patient was not found to be an adequate surgical candidate for valve replacement. He carries a very high mortality and he has not shown any signs of improvement over the past week. Septic shock, MSSA, off vasopressors and the patient is currently maintaining his own blood pressure. The patient was found to have MSSA in the urine and in the blood. Note that the patient has been persistently bacteremic. Blood cultures on yesterday's since showing gram-positive cocci, currently on IV nafcillin. The patient continues to be on low-dose pressors for now. Septic emboli to the brain secondary to infective endocarditis.Also had some septic emboli to his fingers on the left hand, fourth and fifth. Repeat CAT scan of the brain from yesterday shows no major interval change in his consistent with multi-infarct in the brain secondary to septic emboli. Acute hypoxic respiratory failure, currently intubated on a mechanical ventilator, chest x-ray and blood gases were noted Mental status changes, multifactorial, related to drug withdrawal and septic emboli with multi level infarct involving the frontal and the parietal and occipital lobes without any evidence of bleeding. The patient failed a sedation holiday yesterday. Actually this was a failed holiday by development of significant hemodynamic instability and SVT /atrial tachycardia. He is back to normal sinus rhythm. He is back on propofol running at 50 mcg/kg per minute. A repeat sedation holiday that was done yesterday showed no major neurologic recovery in this patient patient was unable to show adequate level of consciousness. Diabetic ketoacidosis , the patient is a component of DKA at time of admission. Currently the patient was on insulin drip and the patient was switched to long- acting insulin with Levemir 25 units twice a day and a sliding scale coverage. Delirium tremens IRIS on CKD, creatinine is stable for now History of type 1 diabetes mellitus, currently on Levemir insulin Anion gap metabolic acidosis, recovered Elevated troponin level. History of chronic kidney disease. History of COPD from ongoing and heavy tobacco use. History of dementia. History of chronic alcohol abuse, drinking 1/5 of vodka daily. Daily crack cocaine use. hypernatremia, recovered Plan Keep the patient ICU No ventilator changes for today Patient on propofol at 50 mcg/kg per minute. This patient carries a very poor prognosis. The patient was labeled to be not a Surgical candidate by the cardiothoracic team any obviously carries a very high mortality with or without surgical replacement of the mitral valve. He is already septic and he has multiple DRY MAN septic emboli and a stroke. His level of consciousness is altered. He is still septic requiring pressors and his condition is essentially unchanged over the past several days. For now, the treatment is essentially supportive. The case was presented back to the family to make final decisions. My recommendations will be withdrawal of care based on the fact that were not going to see any clinical improvement specially within having an endovascular infection rates to an infected valve. Meanwhile, we are going to make the following recommendations Continue ventilator support, Put the patient on Lasix 40 mg every 24 hours and monitor the electrolytes and the fluid balance. CAT scan of the brain was noted and the patient has multilevel infarct/optic emboli involving the right frontal and left temporal and parietal areas CRYSTAL noted Carotid Dopplers noted Continue IV nafcillin nutritional support long-acting insulin Levemir 25 units twice a day We'll continue to follow make further recommendations based on his progress. Critically care evaluation was done and morning and 30 minutes. The patient's critically ill. Family has been updated on his condition yesterday. Time with Patient: Greater than 30
--- NOTE | 2021-10-30 09:15 | P.PN ---
Subjective Patient is seen in follow-up for acute kidney injury and chronic kidney disease. Renal function improved. On IV Lasix. Nonoliguric. Intubated. On 65% FiO2. Receiving tube feeds with water flushes. On amiodarone drip for atrial tachycardia. Sodium level 142 today. Vital signs stable. HEENT: Intubated. LUNGS: Breath sounds decreased. HEART: Tachycardic. ABDOMEN: Soft, no distention. EXTREMITITES: Trace edema. Objective - Vital Signs Vital signs: Vital Signs Temp 99.7 F H 10/30/21 07:00 Pulse 103 H 10/30/21 07:47 Resp 34 H 10/30/21 07:47 BP 130/67 10/30/21 02:00 Pulse Ox 95 10/30/21 07:00 FiO2 65 10/30/21 07:08 Intake & Output 10/29/21 10/30/21 10/30/21 18:59 06:59 18:59 Intake Total 2045.490 1824.720 111.006 Output Total 1730 1475 Balance 315.490 349.720 111.006 Intake: IV 540 560 .9 @ 20 240 260 Nafcillin 2 gm In 300 300 Dextrose 5% in Water 100 ml @ 50 mls/hr IVPB Q4HR [facility] Rx#:[id number] Intake, IV Titration 515.490 667.720 111.006 Amount Amiodarone 360 mg In 343.885 84.999 Dextrose 5% in Water 200 ml @ 1 MG/MIN 33.333 mls/ hr IV .Q6H [facility] Rx#: [id number] Norepinephrine 4 mg In 56.177 251.047 111.006 Sodium Chloride 0.9% 250 ml @ 0.05 MCG/KG/MIN 20. 306 mls/hr IV .[id number] [facility] Rx#:[id number] propofoL 1,000 mg In 115.428 331.674 Empty Bag 1 bag @ 5 MCG/ KG/MIN 3.489 mls/hr IV . Q24H [facility] Rx#:[id number] Tube Feeding 390 507 Other 600 90 Output: Urine 1730 1475 Other: Voiding Method Indwelling Catheter Indwelling Catheter ABP, PAP, CO, CI - Last Documented Arterial Blood Pressure 136/55 - Labs CBC & Chem 7: 10/30/21 05:20 10/30/21 05:20 Labs: Abnormal Lab Results - Last 24 Hours (Table) 10/29/21 10/29/21 10/29/21 Range/Units 10:08 11:37 17:35 WBC (3.8-10.6) k/uL RBC (4.30-5.90) m/uL Hgb (13.0-17.5) gm/dL Hct (39.0-53.0) % MCV (80.0-100.0) fL MCHC (31.0-37.0) g/dL ABG pO2 (83-108) mmHg ABG Total CO2 (19-24) mmol/L Potassium (3.5-5.1) mmol/L BUN (9-20) mg/dL Creatinine (0.66-1.25) mg/dL POC Glucose (mg/dL) 102 H 116 H 125 H (75-99) mg/dL Calcium (8.4-10.2) mg/dL C-Reactive Protein (<1.0) mg/dL 10/29/21 10/29/21 10/30/21 Range/Units 20:30 23:44 05:20 WBC (3.8-10.6) k/uL RBC (4.30-5.90) m/uL Hgb (13.0-17.5) gm/dL Hct (39.0-53.0) % MCV (80.0-100.0) fL MCHC (31.0-37.0) g/dL ABG pO2 (83-108) mmHg ABG Total CO2 (19-24) mmol/L Potassium 3.2 L (3.5-5.1) mmol/L BUN 107 H* (9-20) mg/dL Creatinine 1.87 H (0.66-1.25) mg/dL POC Glucose (mg/dL) 120 H 103 H (75-99) mg/dL Calcium 7.0 L (8.4-10.2) mg/dL C-Reactive Protein 33.1 H (<1.0) mg/dL 10/30/21 10/30/21 Range/Units 05:20 05:31 WBC 24.9 H (3.8-10.6) k/uL RBC 3.32 L (4.30-5.90) m/uL Hgb 10.3 L (13.0-17.5) gm/dL Hct 33.7 L (39.0-53.0) % MCV 101.5 H (80.0-100.0) fL MCHC 30.5 L (31.0-37.0) g/dL ABG pO2 69 L (83-108) mmHg ABG Total CO2 26 H (19-24) mmol/L Potassium (3.5-5.1) mmol/L BUN (9-20) mg/dL Creatinine (0.66-1.25) mg/dL POC Glucose (mg/dL) (75-99) mg/dL Calcium (8.4-10.2) mg/dL C-Reactive Protein (<1.0) mg/dL Microbiology - Last 24 Hours (Table) 10/25/21 01:49 Blood Culture - Preliminary Blood No Growth after 120 hours 10/28/21 14:52 Blood Culture Gram Stain - Preliminary Blood Blood Culture - Preliminary Staphylococcus aureus 10/27/21 14:00 Blood Culture Gram Stain - Preliminary Blood 10/28/21 14:52 Blood Culture - Final Blood 10/26/21 02:45 Gram Stain - Preliminary Throat Tissue Culture - Preliminary Presumptive Staph aureus 10/27/21 14:00 Blood Culture - Final Blood 10/26/21 14:44 Blood Culture Gram Stain - Preliminary Blood Blood Culture - Preliminary Presumptive Staph aureus Assessment and Plan Plan: Assessment: 1. Acute kidney injury secondary to ATN secondary to septic shock. Creatinine was 2.59 on admission and peaked at 3.56 this admission - 1.87 today. Nonoliguric. No hydronephrosis noted on kidney ultrasound. Elevated BUN secondary to hypercatabolic state. Not on steroids. No evidence of GI bleed. 2. Septic shock secondary to staph aureus UTI and bacteremia on antibiotics. Infectious disease following. 3. Chronic kidney disease stage IIIA with baseline creatinine in the range of 1.5-1.7 secondary to diabetic kidney disease. 4. Metabolic acidosis secondary to acute kidney injury and IV fluids. Status post bicarb drip. Improved. 5. Hypernatremia from lack of oral water intake. Improved. 6. Hypokalemia from poor intake. Being replaced. 7. Diabetes mellitus. Serum acetone positive. Status post insulin drip. 8. Volume overload. Improving with diuresis. 9. Atrial tachycardia. On amiodarone drip. Cardiology following. 10. Hypocalcemia secondary to hypoalbuminemia. Plan: Maintain IV Lasix. Maintain free water flushes at 300 mL every 6 hours with tube feeds. Avoid nephrotoxins. Continue to monitor renal function and urine output. Preserved ejection fraction with moderate LVH noted on echocardiogram. Phosphorus 3.5 dated 10/24/21. Replace potassium. Wean FiO2. Check ionized calcium.
[2021-10-30] MEDS ORDERED: AMIODARONE 200 MG TAB PO SCH (09:33)
[2021-10-30] MEDS: NICOTINE 21MG/24HR PATCH TRANSDERM SCH (09:36)
[2021-10-30] MEDS: PANTOPRAZOLE 40 MG/10 ML VIAL IVP SCH (09:36)
[2021-10-30] MEDS: CHLORHEXIDINE GLUCONATE 15 ML CUP MUCOUS MEM SCH ×2 (09:36→21:16)
[2021-10-30] MEDS: INSULIN DETEMIR (LEVEMIR) 100 UNIT/ML SYR SQ SCH ×2 (09:36→21:16)
[2021-10-30] MEDS: FUROSEMIDE 10 MG/ML 4 ML VIAL IV SCH (09:36)
[2021-10-30] MEDS: THIAMINE 100 MG/ML 2 ML VIAL IVP SCH ×2 (09:36→21:17)
[2021-10-30 09:50] LABS: Glucose,Whole Blood 94 mg/dL (75-99)
[2021-10-30 09:50] LABS: Glucose,Whole Blood 92 mg/dL (75-99)
--- NOTE | 2021-10-30 09:53 | P.PN ---
Subjective Progress Note Date: 10/30/21 The patient seen at bedside and per the patient's nurse yesterday when she decreased the propofol the patient was able to wiggle the toes and that the only command he was able to follow. It seems that the is leaning towards more comfort care but since she felt that's patient wishes while parents feels they want to continue management according to nurse. Currently the patient is on IV Propofol 50mcg/kg/min. Objective - Vital Signs Vital signs: Vital Signs Temp 99.7 F H 10/30/21 07:00 Pulse 103 H 10/30/21 07:47 Resp 34 H 10/30/21 07:47 BP 130/67 10/30/21 02:00 Pulse Ox 95 10/30/21 07:00 FiO2 65 10/30/21 07:08 Intake & Output 10/29/21 10/30/21 10/30/21 18:59 06:59 18:59 Intake Total 2045.490 1824.720 111.006 Output Total 1730 1475 Balance 315.490 349.720 111.006 Intake: IV 540 560 .9 @ 20 240 260 Nafcillin 2 gm In 300 300 Dextrose 5% in Water 100 ml @ 50 mls/hr IVPB Q4HR [facility] Rx#:[id number] Intake, IV Titration 515.490 667.720 111.006 Amount Amiodarone 360 mg In 343.885 84.999 Dextrose 5% in Water 200 ml @ 1 MG/MIN 33.333 mls/ hr IV .Q6H [facility] Rx#: [id number] Norepinephrine 4 mg In 56.177 251.047 111.006 Sodium Chloride 0.9% 250 ml @ 0.05 MCG/KG/MIN 20. 306 mls/hr IV .[id number] [facility] Rx#:[id number] propofoL 1,000 mg In 115.428 331.674 Empty Bag 1 bag @ 5 MCG/ KG/MIN 3.489 mls/hr IV . Q24H [facility] Rx#:[id number] Tube Feeding 390 507 Other 600 90 Output: Urine 1730 1475 Other: Voiding Method Indwelling Catheter Indwelling Catheter ABP, PAP, CO, CI - Last Documented Arterial Blood Pressure 136/55 - Exam GENERAL: The patient is lying in bed and seems in seems to be in acute distress. LUNG: Intubated on ventilator. He is tachypneic. INTEGUMENTARY: Nail beds on the left hand has linear black discoloration/splinter hemorrhage. NEUROLOGICAL: Limited. Is currently on IV Propofol 50mcg/kg/min Higher mental function: The patient is comatose GCS 3 (E1, VT1, M1). Not following commands or verbalizing. Cranial nerves: I had to manually open eyes and primary gaze is midline. Pupils are 2mm and non-reactive bilaterally. Has positive corneal reflex bilaterally. No facial weakness. Is breathing over the vent. +ve tejas reflex. Rest is limited. Motor: The strength is not moving withdrawing any extremities to painful stimuli but grimaces to pain on the right lower. Sensation: Unable to assess light touch SOME OF THE WORK-UP DURING THIS HOSPITAL VISIT: CT head was ordered by primary team yesterday for altered mental status. It is reported as interval development of left frontal and left parietal cortical and subcortical infarct possibly representing watershed infarct however underlying embolic etiology cannot be excluded. I personally reviewed the CT of the head and I felt more embolic. And I agree was the different compared to the 10/20/2021. 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 No acute intracranial abnormality. Cervical atrophy. No change compared to yesterday. I personally reviewed it and I do agree the patient does have an old the right temporal from that an initial CT during this admission but the left parietal occipital I did not see it on the day prior and the left otherwise the patient has a left frontal parietal lesion seen from the prior Repeat CT of the head on 10/29/2021 was reported as old cortical infarcts. No acute intracranial normality. No change compared to recent exam. I personally reviewed the CT of the head and I agree there is no acute subacute ischemia that's appreciable and there is no interpretable hemorrhage compared to prior CT. Patient had a transesophageal echocardiogram: This reported as large vegetation involving the posterior mitral leaflet was smaller vegetation involving the anterior mitral leaflet with mild mitral regurgitation. Left ventricle systolic function is normal. There is a small atrioseptal defect noted with bilateral direct uroflow Carotid duplex is reported as mild homogeneous plaque with no significant hemodynamic stenosis visualized Routine EEG on 10/26/2021 is abnormal. The background slowing is suggestive of moderate encephalopathy. Otherwise there is no focal slowing, epileptiform discharges or seizure on the EEG - Labs CBC & Chem 7: 10/30/21 05:20 10/30/21 05:20 Labs: Abnormal Lab Results - Last 24 Hours (Table) 10/29/21 10/29/21 10/29/21 Range/Units 10:08 11:37 17:35 WBC (3.8-10.6) k/uL RBC (4.30-5.90) m/uL Hgb (13.0-17.5) gm/dL Hct (39.0-53.0) % MCV (80.0-100.0) fL MCHC (31.0-37.0) g/dL ABG pO2 (83-108) mmHg ABG Total CO2 (19-24) mmol/L Potassium (3.5-5.1) mmol/L BUN (9-20) mg/dL Creatinine (0.66-1.25) mg/dL POC Glucose (mg/dL) 102 H 116 H 125 H (75-99) mg/dL Calcium (8.4-10.2) mg/dL C-Reactive Protein (<1.0) mg/dL 10/29/21 10/29/21 10/30/21 Range/Units 20:30 23:44 05:20 WBC (3.8-10.6) k/uL RBC (4.30-5.90) m/uL Hgb (13.0-17.5) gm/dL Hct (39.0-53.0) % MCV (80.0-100.0) fL MCHC (31.0-37.0) g/dL ABG pO2 (83-108) mmHg ABG Total CO2 (19-24) mmol/L Potassium 3.2 L (3.5-5.1) mmol/L BUN 107 H* (9-20) mg/dL Creatinine 1.87 H (0.66-1.25) mg/dL POC Glucose (mg/dL) 120 H 103 H (75-99) mg/dL Calcium 7.0 L (8.4-10.2) mg/dL C-Reactive Protein 33.1 H (<1.0) mg/dL 10/30/21 10/30/21 Range/Units 05:20 05:31 WBC 24.9 H (3.8-10.6) k/uL RBC 3.32 L (4.30-5.90) m/uL Hgb 10.3 L (13.0-17.5) gm/dL Hct 33.7 L (39.0-53.0) % MCV 101.5 H (80.0-100.0) fL MCHC 30.5 L (31.0-37.0) g/dL ABG pO2 69 L (83-108) mmHg ABG Total CO2 26 H (19-24) mmol/L Potassium (3.5-5.1) mmol/L BUN (9-20) mg/dL Creatinine (0.66-1.25) mg/dL POC Glucose (mg/dL) (75-99) mg/dL Calcium (8.4-10.2) mg/dL C-Reactive Protein (<1.0) mg/dL Microbiology - Last 24 Hours (Table) 10/25/21 01:49 Blood Culture - Preliminary Blood No Growth after 120 hours 10/28/21 14:52 Blood Culture Gram Stain - Preliminary Blood Blood Culture - Preliminary Staphylococcus aureus 10/27/21 14:00 Blood Culture Gram Stain - Preliminary Blood 10/28/21 14:52 Blood Culture - Final Blood 10/26/21 02:45 Gram Stain - Preliminary Throat Tissue Culture - Preliminary Presumptive Staph aureus 10/27/21 14:00 Blood Culture - Final Blood 10/26/21 14:44 Blood Culture Gram Stain - Preliminary Blood Blood Culture - Preliminary Presumptive Staph aureus Assessment and Plan Assessment: Acute to subacute ischemic stroke over the left fronto/parietal/occipital due to septic emboli (from infective endocarditis) Septic encephalopathy and component of metabolic encephalopathy. 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 Recommend avoiding any anticoagulation because of hemorrhagic emergency and the underlying management is IV antibiotic. Recommend CT angiography of the head to rule out any mycotic aneurysm. Currently cannot obtain because of kidney insufficiency. Patient had a repeat CT of the head yesterday and there is no change compared to the prior. I'll defer modification of antibiotic to the ID team currently the patient is on nafcillin Continue to avoid hypotensive episodes. Cardiology and Cardiothoracic team are on board Nephrology is on board We'll defer the rest of the medical measure the primary team Condition: Critical. Patient was able to follow one simple command to me of wiggling toes two days ago and moving extremities spontaneously. His condition is critical but cannot state to what degree deficit he has or he will have because could not obtain good neurological examination since has not been off sedation for prolonged time because of his condition. It seems the patient's is considering comfort care but his parents appear undecided. I spoke with patient's parents in length and unsure of their final decision. The plan is discussed with the patient's nurse. Dr. Rdz will start neurology service tomorrow AM. Ji Hernandez M.D. Neuro-Hospitalist Time with Patient: Greater than 30
[2021-10-30] MEDS ORDERED: CALCIUM GLUCONATE IN NACL 1 GM in SALINE 1 100ML.BAG IVPB ONE (10:00)
[2021-10-30 11:18] LABS: Glucose,Whole Blood 100 mg/dL (75-99)
--- NOTE | 2021-10-30 11:49 | P.PN ---
Subjective Progress Note Date: 10/30/21 The patient is a 55-year-old male who is currently admitted to the hospital with sepsis and acute renal failure. Cardiology was consulted for abnormal troponin. The patient has preserved LV function without wall motion abnormalities. Elevated troponins are likely secondary to acute kidney injury. Cardiology was re-consulted for CRYSTAL. CRYSTAL shows large vegetation involving the posterior mitral leaflet and smaller vegetation on the anterior mitral leaflet with mild regurgitation. The patient is being followed by infectious disease. Throughout his hospital course he also developed atrial fibrillation with RVR. He was bolused with IV amiodarone followed by continuous drip. He spontaneously conver cirilo back to sinus mechanism. The patient was examined in the ICU. He is currently intubated. He is currently sedated with propofol. GENERAL: Ill-appearing. NECK: Supple without JVD or thyromegaly. LUNGS: Breath sounds are coarse to auscultation. HEART: Regular rate and rhythm without murmurs, rubs or gallops. S1 and S2 heard. Tachycardic. EXTREMITIES: Normal range of motion, generalized edema. No clubbing or cyanosis. Peripheral pulses intact. VITALS: Blood pressure 121/64, respiratory rate 35, pulse 94, SpO2 97% on current vent settings TELEMETRY: Sinus tachycardia LABS: WBC 24, hemoglobin 10.3, hematocrit 33.7, platelet 287, sodium 142, potassium 3.2, BUN 107, creatinine 1.87 IMPRESSION: Elevated troponins, not indicative of ACS, likely secondary to acute kidney injury Septicemia, blood cultures positive for gram-positive cocci Infective endocarditis, vegetation noted on the mitral valve Atrial fibrillation with RVR, currently in sinus on amiodarone Acute kidney injury Hypoxic respiratory failure Encephalopathy Diabetes mellitus PLAN: The patient has a poor prognosis with multiple comorbid conditions Transitioned to oral amiodarone 200 mg daily Will continue to follow on an as-needed basis I am dictating on behalf of Dr De Loaiza's history/physical and assessm ent/plan. Objective - Vital Signs Vital signs: Vital Signs Temp 99.7 F H 10/30/21 07:00 Pulse 103 H 10/30/21 07:47 Resp 34 H 10/30/21 07:47 BP 130/67 10/30/21 02:00 Pulse Ox 95 10/30/21 07:00 FiO2 65 10/30/21 07:08 Intake & Output 10/29/21 10/30/21 10/30/21 18:59 06:59 18:59 Intake Total 2045.490 1824.720 111.006 Output Total 1730 1475 Balance 315.490 349.720 111.006 Intake: IV 540 560 .9 @ 20 240 260 Nafcillin 2 gm In 300 300 Dextrose 5% in Water 100 ml @ 50 mls/hr IVPB Q4HR [facility] Rx#:[id number] Intake, IV Titration 515.490 667.720 111.006 Amount Amiodarone 360 mg In 343.885 84.999 Dextrose 5% in Water 200 ml @ 1 MG/MIN 33.333 mls/ hr IV .Q6H [facility] Rx#: [id number] Norepinephrine 4 mg In 56.177 251.047 111.006 Sodium Chloride 0.9% 250 ml @ 0.05 MCG/KG/MIN 20. 306 mls/hr IV .[id number] [facility] Rx#:[id number] propofoL 1,000 mg In 115.428 331.674 Empty Bag 1 bag @ 5 MCG/ KG/MIN 3.489 mls/hr IV . Q24H [facility] Rx#:[id number] Tube Feeding 390 507 Other 600 90 Output: Urine 1730 1475 Other: Voiding Method Indwelling Catheter Indwelling Catheter ABP, PAP, CO, CI - Last Documented Arterial Blood Pressure 136/55 - Labs CBC & Chem 7: 10/30/21 05:20 10/30/21 05:20 Labs: Abnormal Lab Results - Last 24 Hours (Table) 10/29/21 10/29/21 10/29/21 Range/Units 10:08 11:37 17:35 WBC (3.8-10.6) k/uL RBC (4.30-5.90) m/uL Hgb (13.0-17.5) gm/dL Hct (39.0-53.0) % MCV (80.0-100.0) fL MCHC (31.0-37.0) g/dL ABG pO2 (83-108) mmHg ABG Total CO2 (19-24) mmol/L Potassium (3.5-5.1) mmol/L BUN (9-20) mg/dL Creatinine (0.66-1.25) mg/dL POC Glucose (mg/dL) 102 H 116 H 125 H (75-99) mg/dL Calcium (8.4-10.2) mg/dL C-Reactive Protein (<1.0) mg/dL 10/29/21 10/29/21 10/30/21 Range/Units 20:30 23:44 05:20 WBC (3.8-10.6) k/uL RBC (4.30-5.90) m/uL Hgb (13.0-17.5) gm/dL Hct (39.0-53.0) % MCV (80.0-100.0) fL MCHC (31.0-37.0) g/dL ABG pO2 (83-108) mmHg ABG Total CO2 (19-24) mmol/L Potassium 3.2 L (3.5-5.1) mmol/L BUN 107 H* (9-20) mg/dL Creatinine 1.87 H (0.66-1.25) mg/dL POC Glucose (mg/dL) 120 H 103 H (75-99) mg/dL Calcium 7.0 L (8.4-10.2) mg/dL C-Reactive Protein 33.1 H (<1.0) mg/dL 10/30/21 10/30/21 Range/Units 05:20 05:31 WBC 24.9 H (3.8-10.6) k/uL RBC 3.32 L (4.30-5.90) m/uL Hgb 10.3 L (13.0-17.5) gm/dL Hct 33.7 L (39.0-53.0) % MCV 101.5 H (80.0-100.0) fL MCHC 30.5 L (31.0-37.0) g/dL ABG pO2 69 L (83-108) mmHg ABG Total CO2 26 H (19-24) mmol/L Potassium (3.5-5.1) mmol/L BUN (9-20) mg/dL Creatinine (0.66-1.25) mg/dL POC Glucose (mg/dL) (75-99) mg/dL Calcium (8.4-10.2) mg/dL C-Reactive Protein (<1.0) mg/dL Microbiology - Last 24 Hours (Table) 10/25/21 01:49 Blood Culture - Preliminary Blood No Growth after 120 hours 10/28/21 14:52 Blood Culture Gram Stain - Preliminary Blood Blood Culture - Preliminary Staphylococcus aureus 10/27/21 14:00 Blood Culture Gram Stain - Preliminary Blood 10/28/21 14:52 Blood Culture - Final Blood 10/26/21 02:45 Gram Stain - Preliminary Throat Tissue Culture - Preliminary Presumptive Staph aureus 10/27/21 14:00 Blood Culture - Final Blood 10/26/21 14:44 Blood Culture Gram Stain - Preliminary Blood Blood Culture - Preliminary Presumptive Staph aureus
--- NOTE | 2021-10-30 14:37 | P.PN ---
Subjective Progress Note Date: 10/30/21 Patient is evaluated today in the intensive care unit with family at the bedside. Taking over care for Dr. Daniels today. He continues on mechanical vent with FiO2 of 40%, oxygen saturation is 100%, He has fever today 101.8. He is still in atrial tachycardia in the 100's and continues on the amiodarone infus ion. Blood pressure 100/40s. Patient had sedation holiday earlier today per nurse and possibly wiggled toes, but otherwise no other commands followed. He underwent repeat chest xray today showing acute cardiopulmonary disease with mild interval worsening compared to previous. Blood culture are comtinuing to grow gram positive which is consistent with staph bacteremia. He continues on nafcillin IV, and gentimicin was stopped today. Otherwise he continues on propofol gtt, and lasix IV was decreased to daily today. Plan to undergo CT angiogram of head to assess for myocytic aneurysm once renal function has stabilized. Creatinine has increased today. Patient is being followed closely by multiple consultations and for now cardiothoracic has determined patient is not a surgical candidate. Family is discussing the possibility of comfort care measures. Labs reviewed today showing white count 17.3, hgb 10.1, sodium 143, potassium 3.6, chloride 108, BUN 112, Creat 2.42, calcium 7.1, blood glucose 116. 10/30/2021 Patient evaluated today in the intensive care unit. He is intubated and is maintained on mechanical ventilator and FiO2 has been increased to 65%. Clinically he is worse today. He is congested with increased secretions and is requiring deep suctioning frequently. Blood cultures continue to be positive for Staphylococcus aureus, repeats were completed today. He is not a surgical candidate at at this time for mitral valve by cardiothoracic team. He is maintined on IV nafcillin every 4 hours. He also underwent chest x-ray today showing no change, there is moderate pulmonary vascular congestion. He continues on IV lasix daily. His white count today has increased to 24.9, hemoglobin 10.3, sodium 142, potassium 3.2, BUN 107, creatinine 1.87. His CRP is 33.1. Stable ABGs. He is febrile, T-max 100.2 overnight. Patient underwent a sedation holiday this morning per RN he wiggled his toes and that is all, he became agitated as well and was placed back on sedation. Amiodarone drip has been discontinued he is now on oral amiodarone and continues in sinus rhythm. Ne urology has been unable to complete full neurological examination due to sedation, and recommending repeat CT angiography when stable. He underwent repeat brain CT yesterday evening which demonstrates old cortical infarcts, 1.5 cm hypodensity left parietal lobe and 3 x 1 cm area of hypodensity left occipital lobe. This is consistent with previous imaging demonstrating multi- infarct from septic emboli. There is no evidence for hemorrhage. He is also continued on enteral tube feedings. Blood sugar has remained stable in the 100s. He has received potassium supplement today. Multiple consultations following patient including ID, cardiology, neurology, cardiothoracic, and arch support technician. Prognosis is poor and family is undecided about withdrawing care at this time. Unable to complete full review of systems as patient is intubated PHYSICAL EXAMINATION: Gen: This is a morbidly obese 55-year-old male. He continues on mechanical ventilator monitored in ICU HEENT: Head is atraumatic, normocephalic. Pupils equal, round. Sclerae is anicteric. NECK: Supple. No JVD. No lymphadenopathy. No thyromegaly. LUNGS: Diminished with a few scattered rhonchi. No intercostal retractions. HEART: Regular rate and rhythm. No murmur. ABDOMEN: Soft. Bowel sounds are present, hypoactive. No masses. No tenderness. EXTREMITIES: No pedal edema. No calf tenderness. SKIN: There is scabbed lesion to right forearm. 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 -Leukocytosis, secondary to above increasing up to 24.9 today. Left parietal cortical and subcortical infarcts or infective embolic source secondary to MSSA endocarditis involving the mitral valve, cardiothoracic is following patient Acute hypoxic respiratory failure requiring intubation and mechanical ventilation, Fi02 now at 65%. -SVT was likely secondary to sepsis also atrial tachycardia patient has since been transitioned off the amiodarone gtt and is on oral amiodarone -Metabolic encephalopathy secondary to sepsis, DTs, DKA, acute kidney injury -Acute on chronic kidney disease stage III, improved today -Delirium tremens prior to intubation patient was started on CIWA protocol at that time which has now been discontinued -DKA and patient was diabetes mellitus type 1 usually maintained on insulin pump. Pump is currently turned off and patient was transitioned off the insulin drip and continues on Levemir 25 twice a day as well as NovoLog every 6 and scale. Blood sugars are stable in the 100s. -Anion gap metabolic acidosis secondary to acute kidney injury and DKA, status post sodium bicarb -Elevated troponins, acute coronary syndrome ruled out, cardiology is following patient closely -Thrombocytopenia most at this secondary to sepsis, following trends Hyponatremia initially which patient was hypernatremic yesterday, down to 143 today, nephrology is following patient -Hypertension, patient is currently normotensive, lisinopril is on hold -History of COPD History dementia continues on Aricept daily Hyperlipidemia, continues on Lipitor daily Gastroesophageal reflux disease and GI prophylaxis, Protonix IV daily History of acute respiratory failure requiring intubation secondary to polysubstance abuse which included narcotics and alcohol History of liver cirrhosis secondary to alcohol abuse History of seizure disorder not currently on Keppra Generalized anxiety disorder and recurrent depression daily crack cocaine use -Chronic daily alcohol use -GI Prophylaxis -DVT Prophylaxis Full Code Prognosis for this patient is poor, he continues in intensive care unit maintained on mechanical ventiliation being followed by multiple consultations including, infectious disease, neurology, cardiology, ICU arch support technician, nephrology, cardiothoracic. He has shown no signs of improvement over the last week, and mortality rate is felt to be high at this time. FiO2 has been increased to 65%, he is on IV propofol for sedation. Continues on IV lasix daily. He is IV antibiotics in the form of IV nafcillin, white count continues to increase. Neurology would like repeat CT angiography, however creatinine has not improved enough for patient to undergo testing. [employer] Consultant has discussed with family and at this time they are undecided about withdrawing care. The impression and plan of care has been dictated by Didi Christiansen, Nurse Practitioner as directed. Dr. Griselda MD I have performed a history and physical examination and medical decision making of this patient, discussed the same with the dictator, and agree with the dictators assessment and plan as written, documented as a scribe. Based on total visit time, I have performed more than 50% of this visit. Objective - Vital Signs Vital signs: Vital Signs Temp 100.2 F H 10/30/21 08:00 Pulse 104 H 10/30/21 10:00 Resp 32 H 10/30/21 10:00 BP 130/67 10/30/21 02:00 Pulse Ox 93 L 10/30/21 10:00 FiO2 65 10/30/21 08:00 Intake & Output 10/29/21 10/30/21 10/30/21 18:59 06:59 18:59 Intake Total 2045.490 1824.720 351.006 Output Total 1730 1475 150 Balance 315.490 349.720 201.006 Intake: IV 540 560 140 .9 @ 20 240 260 40 Nafcillin 2 gm In 300 300 100 Dextrose 5% in Water 100 ml @ 50 mls/hr IVPB Q4HR [facility] Rx#:[id number] Intake, IV Titration 515.490 667.720 211.006 Amount Amiodarone 360 mg In 343.885 84.999 Dextrose 5% in Water 200 ml @ 1 MG/MIN 33.333 mls/ hr IV .Q6H [facility] Rx#: [id number] Norepinephrine 4 mg In 56.177 251.047 111.006 Sodium Chloride 0.9% 250 ml @ 0.05 MCG/KG/MIN 20. 306 mls/hr IV .[id number] [facility] Rx#:[id number] propofoL 1,000 mg In 115.428 331.674 100 Empty Bag 1 bag @ 5 MCG/ KG/MIN 3.489 mls/hr IV . Q24H [facility] Rx#:[id number] Tube Feeding 390 507 Other 600 90 Output: Urine 1730 1475 150 Other: Voiding Method Indwelling Catheter Indwelling Catheter ABP, PAP, CO, CI - Last Documented Arterial Blood Pressure 122/55 - Labs CBC & Chem 7: 10/30/21 05:20 10/30/21 05:20 Labs: Abnormal Lab Results - Last 24 Hours (Table) 10/29/21 10/29/21 10/29/21 Range/Units 11:37 17:35 20:30 WBC (3.8-10.6) k/uL RBC (4.30-5.90) m/uL Hgb (13.0-17.5) gm/dL Hct (39.0-53.0) % MCV (80.0-100.0) fL MCHC (31.0-37.0) g/dL ABG pO2 (83-108) mmHg ABG Total CO2 (19-24) mmol/L Potassium (3.5-5.1) mmol/L BUN (9-20) mg/dL Creatinine (0.66-1.25) mg/dL POC Glucose (mg/dL) 116 H 125 H 120 H (75-99) mg/dL Calcium (8.4-10.2) mg/dL C-Reactive Protein (<1.0) mg/dL 10/29/21 10/30/21 10/30/21 Range/Units 23:44 05:20 05:20 WBC 24.9 H (3.8-10.6) k/uL RBC 3.32 L (4.30-5.90) m/uL Hgb 10.3 L (13.0-17.5) gm/dL Hct 33.7 L (39.0-53.0) % MCV 101.5 H (80.0-100.0) fL MCHC 30.5 L (31.0-37.0) g/dL ABG pO2 (83-108) mmHg ABG Total CO2 (19-24) mmol/L Potassium 3.2 L (3.5-5.1) mmol/L BUN 107 H* (9-20) mg/dL Creatinine 1.87 H (0.66-1.25) mg/dL POC Glucose (mg/dL) 103 H (75-99) mg/dL Calcium 7.0 L (8.4-10.2) mg/dL C-Reactive Protein 33.1 H (<1.0) mg/dL 10/30/21 Range/Units 05:31 WBC (3.8-10.6) k/uL RBC (4.30-5.90) m/uL Hgb (13.0-17.5) gm/dL Hct (39.0-53.0) % MCV (80.0-100.0) fL MCHC (31.0-37.0) g/dL ABG pO2 69 L (83-108) mmHg ABG Total CO2 26 H (19-24) mmol/L Potassium (3.5-5.1) mmol/L BUN (9-20) mg/dL Creatinine (0.66-1.25) mg/dL POC Glucose (mg/dL) (75-99) mg/dL Calcium (8.4-10.2) mg/dL C-Reactive Protein (<1.0) mg/dL Microbiology - Last 24 Hours (Table) 10/27/21 14:00 Blood Culture Gram Stain - Preliminary Blood Blood Culture - Preliminary Presumptive Staph aureus 10/25/21 01:49 Blood Culture - Preliminary Blood No Growth after 120 hours 10/28/21 14:52 Blood Culture Gram Stain - Preliminary Blood Blood Culture - Preliminary Staphylococcus aureus 10/28/21 14:52 Blood Culture - Final Blood 10/26/21 02:45 Gram Stain - Preliminary Throat Tissue Culture - Preliminary Presumptive Staph aureus 10/27/21 14:00 Blood Culture - Final Blood 10/26/21 14:44 Blood Culture Gram Stain - Preliminary Blood Blood Culture - Preliminary Presumptive Staph aureus Assessment and Plan Time with Patient: Less than 30
[2021-10-30 17:33] LABS: Glucose,Whole Blood 169 mg/dL (75-99)
[2021-10-30 21:31] LABS: Glucose,Whole Blood 176 mg/dL (75-99)
[2021-10-30] MEDS ORDERED: DEXTROSE 5% IN WATER 250 ML with AMIODARONE 300 MG IV ONE (23:15)
[2021-10-31 00:26] LABS: Glucose,Whole Blood 229 mg/dL (75-99)
[2021-10-31 00:33] LABS: ABG Base Excess -0.1 mmol/L; ABG HCO3 25 mmol/L (21-25); ABG PCO2 46 mmHg (35-45); ABG PH 7.35 (7.35-7.45); ABG TCO2 27 mmol/L (19-24)
[2021-10-31 00:37] LABS: ABG PO2 56 mmHg (83-108); Allen Test Performed? no
[2021-10-31] MEDS: INSULIN ASPART (NovoLOG) 100 UNIT/ML VIAL SQ SCH ×4 (01:22→05:54)
[2021-10-31] MEDS: NAFCILLIN 2 GM in DEXTROSE 5% IN WATER 100 ML IVPB SCH ×6 (01:22→08:28)
[2021-10-31] MEDS: NOREPINEPHRINE 32 MG in SODIUM CHLORIDE 0.9% 218 ML IV SCH ×2 (01:35→10:37)
--- NOTE | 2021-10-31 03:59 | XR ---
EXAMINATION TYPE: XR chest 1V portable DATE OF EXAM: 10/31/2021 COMPARISON: Yesterday HISTORY: Respiratory failure TECHNIQUE: FINDINGS: Endotracheal tube is 4 cm from the pamela. There is moderate pulmonary airspace edema. Ther e is left subclavian catheter with tip in the superior vena cava. There is nasogastric tube in the st omach. IMPRESSION: There is increasing pulmonary airspace edema compared to exam yesterday.
[2021-10-31 04:17] LABS: ABG Base Excess -1.1 mmol/L; ABG HCO3 25 mmol/L (21-25); ABG PCO2 49 mmHg (35-45); ABG PH 7.32 (7.35-7.45); ABG PO2 67 mmHg (83-108); ABG TCO2 27 mmol/L (19-24)
[2021-10-31 04:26] LABS: Basophils # (A) 0.1 k/uL (0-0.2); Basophils % (A) 1 %; Eosinophils # (A) 0.2 k/uL (0-0.7); Eosinophils % (A) 1 %; HCT 34.4 % (39.0-53.0); HGB 10.6 gm/dL (13.0-17.5); Hypochromasia Moderate; Lymphocytes # (A) 1.2 k/uL (1.0-4.8); Lymphocytes % (A) 5 %; MCH 31.9 pg (25.0-35.0); MCHC 30.8 g/dL (31.0-37.0); MCV 103.7 fL (80.0-100.0); Macrocytosis Moderate; Mean Platelet Volume 9.5; Monocytes # (A) 0.5 k/uL (0-1.0); Monocytes % (A) 2 %; Neutrophils # (A) 22.8 k/uL (1.3-7.7); Neutrophils % (A) 90 %; Platelet Count 365 k/uL (150-450); RBC 3.31 m/uL (4.30-5.90); WBC 25.2 k/uL (3.8-10.6)
[2021-10-31 04:55] LABS: Albumin 2.3 g/dL (3.5-5.0); Calcium 7.7 mg/dL (8.4-10.2); Potassium 3.6 mmol/L (3.5-5.1); Total Bilirubin 1.2 mg/dL (0.2-1.3); Total Protein 6.6 g/dL (6.3-8.2)
[2021-10-31 04:56] LABS: Allen Test Performed? no
[2021-10-31 05:42] LABS: Glucose,Whole Blood 198 mg/dL (75-99)
[2021-10-31] MEDS: AMIODARONE 360 MG in DEXTROSE 5% IN WATER 200 ML IV SCH ×4 (05:53→13:26)
[2021-10-31] MEDS: HYDROmorphone 1 MG/ML 1 ML SYRINGE IVP PRN (06:26)
[2021-10-31] MEDS: IPRATROPIUM-ALBUTEROL 3 ML NEB INHALATION SCH ×3 (06:59→11:04)
[2021-10-31] MEDS ORDERED: POTASSIUM BICARBONATE/CIT AC 20 MEQ TABLET.EFF PO ONE (08:00)
[2021-10-31] MEDS: CHLORHEXIDINE GLUCONATE 15 ML CUP MUCOUS MEM SCH (08:26)
[2021-10-31] MEDS: NICOTINE 21MG/24HR PATCH TRANSDERM SCH (08:26)
[2021-10-31] MEDS: LORazepam 2 MG/ML INJ IV PRN (08:26)
[2021-10-31] MEDS: FUROSEMIDE 10 MG/ML 4 ML VIAL IV SCH (08:27)
[2021-10-31] MEDS: PANTOPRAZOLE 40 MG/10 ML VIAL IVP SCH (08:27)
[2021-10-31] MEDS: THIAMINE 100 MG/ML 2 ML VIAL IVP SCH (08:28)
[2021-10-31] MEDS: INSULIN DETEMIR (LEVEMIR) 100 UNIT/ML SYR SQ SCH (08:44)
[2021-10-31 09:08] VITALS: TEMP 99.2
--- NOTE | 2021-10-31 09:58 | P.PN ---
Subjective Patient has infective endocarditis with a large vegetation on the mitral valve with septic thromboembolic strokes. He is intubated on vent and not responsive. Current medications include IV amiodarone and IV Lasix and insulin and antibiotics along with nebulizers. Patient has had runs of atrial fibrillation last night and had been started on the amiodarone. He has had prior episodes of atrial fibrillation also. He is not a candidate for anticoagulation because of the embolic strokes and a concern about bleeding On exam patient is intubated on vent unresponsive remains in sinus rhythm heart rate is 90 bpm blood pressure is 124/56 is on an FiO2 of 80% with an O2 sat of 95%. Chest exam reveals diminished air entry bilaterally heart exam reveals first and second heart sounds no gallop no murmur abdomen is soft exam extremities did not reveal any edema per for pulses are felt Labs show a hemoglobin of 10.6 platelet count is 365 potassium is 3.6. His 103 creatinine is 2 Assessment and plan: Infective endocarditis Multiple cerebral infarcts secondary to septic emboli Acute renal failure Continue supportive care prognosis guarded Objective - Vital Signs Vital signs: Vital Signs Temp 99.2 F 10/31/21 08:00 Pulse 88 10/31/21 09:00 Resp 24 10/31/21 09:00 BP 130/67 10/31/21 06:30 Pulse Ox 95 10/31/21 09:00 FiO2 80 10/31/21 09:43 Intake & Output 10/30/21 10/31/21 10/31/21 18:59 06:59 18:59 Intake Total 2356.982 1766.850 509.120 Output Total 2075 1065 300 Balance 281.982 701.850 209.120 Weight 118.3 kg Intake: IV 500 340 160 .9 @ 20 200 240 60 Nafcillin 2 gm In 300 100 100 Dextrose 5% in Water 100 ml @ 50 mls/hr IVPB Q4HR [facility] Rx#:[id number] Intake, IV Titration 905.982 868.850 202.120 Amount Amiodarone 360 mg In 200 Dextrose 5% in Water 200 ml @ 1 MG/MIN 33.333 mls/ hr IV .Q6H [facility] Rx#: [id number] Nafcillin 2 gm In 100 Dextrose 5% in Water 100 ml @ 50 mls/hr IVPB Q4HR [facility] Rx#:[id number] Norepinephrine 32 mg In 32.625 134.084 Sodium Chloride 0.9% 218 ml @ 0.05 MCG/KG/MIN 2. 773 mls/hr IV .Q24H [facility] Rx#:[id number] Norepinephrine 4 mg In 508.000 305.406 Sodium Chloride 0.9% 250 ml @ 0.05 MCG/KG/MIN 20. 306 mls/hr IV .[id number] [facility] Rx#:[id number] propofoL 1,000 mg In 397.982 230.819 68.036 Empty Bag 1 bag @ 5 MCG/ KG/MIN 3.489 mls/hr IV . Q24H [facility] Rx#:[id number] Tube Feeding 351 468 117 Other 600 90 30 Output: Urine 2075 1065 300 Other: Voiding Method Indwelling Catheter Indwelling Catheter Indwelling Catheter ABP, PAP, CO, CI - Last Documented Arterial Blood Pressure 125/56 - Labs CBC & Chem 7: 10/31/21 04:15 10/31/21 04:15 Labs: Abnormal Lab Results - Last 24 Hours (Table) 10/30/21 10/30/21 10/30/21 Range/Units 11:17 17:32 21:19 WBC (3.8-10.6) k/uL RBC (4.30-5.90) m/uL Hgb (13.0-17.5) gm/dL Hct (39.0-53.0) % MCV (80.0-100.0) fL MCHC (31.0-37.0) g/dL Neutrophils # (1.3-7.7) k/uL ABG pH (7.35-7.45) ABG pCO2 (35-45) mmHg ABG pO2 (83-108) mmHg ABG Total CO2 (19-24) mmol/L ABG O2 Saturation (94-97) % BUN (9-20) mg/dL Creatinine (0.66-1.25) mg/dL Glucose (74-99) mg/dL POC Glucose (mg/dL) 100 H 169 H 176 H (75-99) mg/dL Calcium (8.4-10.2) mg/dL Alkaline Phosphatase (38-126) U/L Albumin (3.5-5.0) g/dL 06/13/22 06/13/22 06/13/22 Range/Units 00:24 00:27 04:15 WBC 25.2 H (3.8-10.6) k/uL RBC 3.31 L (4.30-5.90) m/uL Hgb 10.6 L (13.0-17.5) gm/dL Hct 34.4 L (39.0-53.0) % MCV 103.7 H (80.0-100.0) fL MCHC 30.8 L (31.0-37.0) g/dL Neutrophils # 22.8 H (1.3-7.7) k/uL ABG pH (7.35-7.45) ABG pCO2 46 H (35-45) mmHg ABG pO2 56 L* (83-108) mmHg ABG Total CO2 27 H (19-24) mmol/L ABG O2 Saturation 88.0 L (94-97) % BUN (9-20) mg/dL Creatinine (0.66-1.25) mg/dL Glucose (74-99) mg/dL POC Glucose (mg/dL) 229 H (75-99) mg/dL Calcium (8.4-10.2) mg/dL Alkaline Phosphatase (38-126) U/L Albumin (3.5-5.0) g/dL 10/31/21 10/31/21 10/31/21 Range/Units 04:15 04:16 05:40 WBC (3.8-10.6) k/uL RBC (4.30-5.90) m/uL Hgb (13.0-17.5) gm/dL Hct (39.0-53.0) % MCV (80.0-100.0) fL MCHC (31.0-37.0) g/dL Neutrophils # (1.3-7.7) k/uL ABG pH 7.32 L (7.35-7.45) ABG pCO2 49 H (35-45) mmHg ABG pO2 67 L (83-108) mmHg ABG Total CO2 27 H (19-24) mmol/L ABG O2 Saturation 92.0 L (94-97) % BUN 103 H* (9-20) mg/dL Creatinine 2.05 H (0.66-1.25) mg/dL Glucose 194 H (74-99) mg/dL POC Glucose (mg/dL) 198 H (75-99) mg/dL Calcium 7.7 L (8.4-10.2) mg/dL Alkaline Phosphatase 147 H (38-126) U/L Albumin 2.3 L (3.5-5.0) g/dL Microbiology - Last 24 Hours (Table) 10/25/21 01:49 Blood Culture - Final Blood No Growth after 144 hours 10/26/21 14:53 Blood Culture Gram Stain - Preliminary Blood Blood Culture - Preliminary Staphylococcus aureus 10/26/21 14:44 Blood Culture Gram Stain - Final Blood Blood Culture - Final Staphylococcus aureus 10/26/21 02:45 Gram Stain - Final Throat Tissue Culture - Final Staphylococcus aureus 10/27/21 14:00 Blood Culture Gram Stain - Preliminary Blood Blood Culture - Preliminary Presumptive Staph aureus
[2021-10-31 10:34] VITALS: BMI 38.5
--- NOTE | 2021-10-31 10:58 | P.PN ---
Subjective Progress Note Date: 10/31/21 Principal diagnosis: Acute infective endocarditis, septic thromboembolic stroke 10/30/2021, the patient is sedated on propofol which is running at 50 mcg/kg per minute. The patient was given a sedation holiday yesterday which essentially failed as the patient did not have any reasonable neurologic recovery or adequate level of alertness and he did not follow follow commands consistently. On few occasions he was able to wiggle his toes upon demand. He became very agitated and patient ultimately was placed back on sedation. Mother the patient has infective endocarditis of the mitral valve and the patient blood cultures are persistently positive and bacteremic and the patient is not a surgical candidate. The patient remains on a mechanical ventilator. The patient is an assist-control mode at the rate of 28 and a tidal volume of 400 and FiO2 of 65% with a PEEP of 5. The blood gases from today shows a pH of 7.44 with a pCO2 of 37 and pO2 of 69. This was not an FiO2 of 40%. The chest x-ray from today remains essentially unchanged. ET tube remains in a good location the patient has some infiltrates/atelectatic changes in the lung bases more so on the left. The patient also has a triple lumen catheter in place. At the same time, due to ongoing altered mentation, the patient underwent a repeat CAT scan of his brain that showed no significant interval change. There was no evidence of any acute bleeding. No interval progression of the abnormal finding and the patient has cortical infarcts as mentioned earlier with a 3 x 1 cm area in the left occipital lobe consistent with old infarct another 1.5 cm left parietal lobe consistent with old infarct and the patient has an old anterior right temporal lobe cortical infarcts. The patient continues to be febrile. The patient continues to be on IV nafcillin. The patient continues to be on pressors and the patient is on norepinephrine infusion running at 0.04 mcg/kg per minute. Overall fluid balance on this patient over the past 24 hours has been +2.4 L. In terms of his blood work, the patient has a white cell count of 24 and a hemoglobin of 10.3. Sodium is at 142, BUN is 1 a 7 and a creatinine of 1.8 and sodium level is at 142. He is still on enteral feeding for nutritional support and the patient is on vital high protein at the rate of 30 mL an hour. The patient is still in a normal sinus rhythm. No significant cardiac arrhythmias over the past 24 hours. He remains on IV amiodarone and will be switched to oral as of today. Reevaluated today on 10/31/2021, patient remains in the ICU, intubated and mechanically ventilated. Patient is on assist control rate of 26 tidal volume 400 FiO2 100% PEEP of 5. ABG showed a pO2 of 67 pCO2 49 pH of 7.32. Patient is requiring norepinephrine at 0.43 mcg/kg/m is also on propofol, and on amiodarone drip. Patient is receiving vital hpf 39 mL per hour. Patient is on nafcillin for his endocarditis. And his chest x-ray shows significant pulmonary edema. Overall pulmonary status is marginal at best. Patient remains in atrial fibrillation with intermittent episodes of being in sinus rhythm. After evaluating the patient, and evaluating the chest x-ray, all the labs, I discussed his condition with his over the phone, and explained to the that his condition is terminal, and prognosis is extremely poor. is agreeable to proceed with comfort care measures sometime later today. In the meantime the patient is DO NOT RESUSCITATE CODE STATUS. WBC count remains elevated at 25.2 hemoglobin is 10.6. Basic metabolic profile is normal however his BUN is 103 creatinine 2.05. Last blood culture from was positive for staph aureus. All blood cultures have been positive since admission Objective - Vital Signs Vital signs: Vital Signs Temp 99.2 F 10/31/21 08:00 Pulse 90 10/31/21 10:00 Resp 26 H 10/31/21 10:00 BP 130/67 10/31/21 06:30 Pulse Ox 95 10/31/21 10:00 FiO2 80 10/31/21 09:43 Intake & Output 10/30/21 10/31/21 10/31/21 18:59 06:59 18:59 Intake Total 2356.982 1766.850 608.194 Output Total 2075 1065 500 Balance 281.982 701.850 108.194 Weight 118.3 kg 118.3 kg Intake: IV 500 340 180 .9 @ 20 200 240 80 Nafcillin 2 gm In 300 100 100 Dextrose 5% in Water 100 ml @ 50 mls/hr IVPB Q4HR [facility] Rx#:[id number] Intake, IV Titration 905.982 868.850 242.194 Amount Amiodarone 360 mg In 200 Dextrose 5% in Water 200 ml @ 1 MG/MIN 33.333 mls/ hr IV .Q6H [facility] Rx#: [id number] Nafcillin 2 gm In 100 Dextrose 5% in Water 100 ml @ 50 mls/hr IVPB Q4HR [facility] Rx#:[id number] Norepinephrine 32 mg In 32.625 174.158 Sodium Chloride 0.9% 218 ml @ 0.05 MCG/KG/MIN 2. 773 mls/hr IV .Q24H [facility] Rx#:[id number] Norepinephrine 4 mg In 508.000 305.406 Sodium Chloride 0.9% 250 ml @ 0.05 MCG/KG/MIN 20. 306 mls/hr IV .[id number] [facility] Rx#:[id number] propofoL 1,000 mg In 397.982 230.819 68.036 Empty Bag 1 bag @ 5 MCG/ KG/MIN 3.489 mls/hr IV . Q24H [facility] Rx#:[id number] Tube Feeding 351 468 156 Other 600 90 30 Output: Urine 2075 1065 500 Other: Voiding Method Indwelling Catheter Indwelling Catheter Indwelling Catheter ABP, PAP, CO, CI - Last Documented Arterial Blood Pressure 123/53 - Exam Physical Exam: Revealed 55-year-old white male sedated, on propofol, in no distress. Patient is calm, he is intubated and mechanically ventilated. Head: Atraumatic, normocephalic. HEENT:[Neck is supple.] [No neck masses.] [No thyromegaly.] [No JVD.]. PERRLA, EOMI, anicteric. Chest: [Symmetrical chest expansion, rhonchi noted bilaterally. And crackles at the bases] Cardiac Exam: Distant S1 and S2, 2/6 systolic murmur thought the precordium. Abdomen: [Soft, nontender, no megaly, no rebound, no guarding, normal bowel sounds.] Extremities: [No clubbing, no edema, no cyanosis.] Neurological Exam: Cannot assess, patient is sedated, on propofol, Psychiatric: Could not assess. Skin: No rashes - Labs CBC & Chem 7: 10/31/21 04:15 10/31/21 04:15 Labs: Abnormal Lab Results - Last 24 Hours (Table) 10/30/21 10/30/21 10/30/21 Range/Units 11:17 17:32 21:19 WBC (3.8-10.6) k/uL RBC (4.30-5.90) m/uL Hgb (13.0-17.5) gm/dL Hct (39.0-53.0) % MCV (80.0-100.0) fL MCHC (31.0-37.0) g/dL Neutrophils # (1.3-7.7) k/uL ABG pH (7.35-7.45) ABG pCO2 (35-45) mmHg ABG pO2 (83-108) mmHg ABG Total CO2 (19-24) mmol/L ABG O2 Saturation (94-97) % BUN (9-20) mg/dL Creatinine (0.66-1.25) mg/dL Glucose (74-99) mg/dL POC Glucose (mg/dL) 100 H 169 H 176 H (75-99) mg/dL Calcium (8.4-10.2) mg/dL Alkaline Phosphatase (38-126) U/L Albumin (3.5-5.0) g/dL 10/31/21 10/31/21 10/31/21 Range/Units 00:24 00:27 04:15 WBC 25.2 H (3.8-10.6) k/uL RBC 3.31 L (4.30-5.90) m/uL Hgb 10.6 L (13.0-17.5) gm/dL Hct 34.4 L (39.0-53.0) % MCV 103.7 H (80.0-100.0) fL MCHC 30.8 L (31.0-37.0) g/dL Neutrophils # 22.8 H (1.3-7.7) k/uL ABG pH (7.35-7.45) ABG pCO2 46 H (35-45) mmHg ABG pO2 56 L* (83-108) mmHg ABG Total CO2 27 H (19-24) mmol/L ABG O2 Saturation 88.0 L (94-97) % BUN (9-20) mg/dL Creatinine (0.66-1.25) mg/dL Glucose (74-99) mg/dL POC Glucose (mg/dL) 229 H (75-99) mg/dL Calcium (8.4-10.2) mg/dL Alkaline Phosphatase (38-126) U/L Albumin (3.5-5.0) g/dL 10/31/21 10/31/21 10/31/21 Range/Units 04:15 04:16 05:40 WBC (3.8-10.6) k/uL RBC (4.30-5.90) m/uL Hgb (13.0-17.5) gm/dL Hct (39.0-53.0) % MCV (80.0-100.0) fL MCHC (31.0-37.0) g/dL Neutrophils # (1.3-7.7) k/uL ABG pH 7.32 L (7.35-7.45) ABG pCO2 49 H (35-45) mmHg ABG pO2 67 L (83-108) mmHg ABG Total CO2 27 H (19-24) mmol/L ABG O2 Saturation 92.0 L (94-97) % BUN 103 H* (9-20) mg/dL Creatinine 2.05 H (0.66-1.25) mg/dL Glucose 194 H (74-99) mg/dL POC Glucose (mg/dL) 198 H (75-99) mg/dL Calcium 7.7 L (8.4-10.2) mg/dL Alkaline Phosphatase 147 H (38-126) U/L Albumin 2.3 L (3.5-5.0) g/dL Microbiology - Last 24 Hours (Table) 10/25/21 01:49 Blood Culture - Final Blood No Growth after 144 hours 10/26/21 14:53 Blood Culture Gram Stain - Preliminary Blood Blood Culture - Preliminary Staphylococcus aureus 10/26/21 14:44 Blood Culture Gram Stain - Final Blood Blood Culture - Final Staphylococcus aureus 10/26/21 02:45 Gram Stain - Final Throat Tissue Culture - Final Staphylococcus aureus 10/27/21 14:00 Blood Culture Gram Stain - Preliminary Blood Blood Culture - Preliminary Presumptive Staph aureus Assessment and Plan Assessment: Impression: Infective endocarditis secondary to MSSA. Septic shock secondary to MSSA. Septic emboli, involving fingers on left hand fourth and fifth, and there is also evidence of multi-infarcts consistent with septic emboli to the brain Acute kidney injury Type 1 diabetes History of chronic kidney disease History of COPD Underlying dementia Chronic alcohol abuse Daily crack cocaine use Recommendation: Continue present ventilatory support. Continue hemodynamic support. Continue nutritional support. Continue antibiotics. Continue GI and DVT prophylaxis. Discussed his status with the over the phone. And explained to the that the condition is quite serious and the prognosis is extremely poor. Continue DO NOT RESUSCITATE CODE STATUS. is willing to proceed with comfort care measures sometime later today. Again patient is critically ill. Critical care time is over 30 minutes. Time with Patient: Greater than 30
[2021-10-31 12:10] VITALS: RESP 34
--- NOTE | 2021-10-31 12:57 | P.PN ---
Subjective Progress Note Date: 10/31/21 Patient is evaluated today in the intensive care unit with family at the bedside. Taking over care for Dr. Daniels today. He continues on mechanical vent with FiO2 of 40%, oxygen saturation is 100%, He has fever today 101.8. He is still in atrial tachycardia in the 100's and continues on the amiodarone infus ion. Blood pressure 100/40s. Patient had sedation holiday earlier today per nurse and possibly wiggled toes, but otherwise no other commands followed. He underwent repeat chest xray today showing acute cardiopulmonary disease with mild interval worsening compared to previous. Blood culture are comtinuing to grow gram positive which is consistent with staph bacteremia. He continues on nafcillin IV, and gentimicin was stopped today. Otherwise he continues on propofol gtt, and lasix IV was decreased to daily today. Plan to undergo CT angiogram of head to assess for myocytic aneurysm once renal function has stabilized. Creatinine has increased today. Patient is being followed closely by multiple consultations and for now cardiothoracic has determined patient is not a surgical candidate. Family is discussing the possibility of comfort care measures. Labs reviewed today showing white count 17.3, hgb 10.1, sodium 143, potassium 3.6, chloride 108, BUN 112, Creat 2.42, calcium 7.1, blood glucose 116. 10/30/2021 Patient evaluated today in the intensive care unit. He is intubated and is maintained on mechanical ventilator and FiO2 has been increased to 65%. Clinically he is worse today. He is congested with increased secretions and is requiring deep suctioning frequently. Blood cultures continue to be positive for Staphylococcus aureus, repeats were completed today. He is not a surgical candidate at at this time for mitral valve by cardiothoracic team. He is maintined on IV nafcillin every 4 hours. He also underwent chest x-ray today showing no change, there is moderate pulmonary vascular congestion. He continues on IV lasix daily. His white count today has increased to 24.9, hemoglobin 10.3, sodium 142, potassium 3.2, BUN 107, creatinine 1.87. His CRP is 33.1. Stable ABGs. He is febrile, T-max 100.2 overnight. Patient underwent a sedation holiday this morning per RN he wiggled his toes and that is all, he became agitated as well and was placed back on sedation. Amiodarone drip has been discontinued he is now on oral amiodarone and continues in sinus rhythm. Ne urology has been unable to complete full neurological examination due to sedation, and recommending repeat CT angiography when stable. He underwent repeat brain CT yesterday evening which demonstrates old cortical infarcts, 1.5 cm hypodensity left parietal lobe and 3 x 1 cm area of hypodensity left occipital lobe. This is consistent with previous imaging demonstrating multi- infarct from septic emboli. There is no evidence for hemorrhage. He is also continued on enteral tube feedings. Blood sugar has remained stable in the 100s. He has received potassium supplement today. Multiple consultations following patient including ID, cardiology, neurology, cardiothoracic, and technical support analyst. Prognosis is poor and family is undecided about withdrawing care at this time. 10/31/2021 Patient is monitored in the intensive care unit, he is intubated and FiO2 has been increased to 80%. Patient's parents at the bedside today and report the patient's has decided for comfort measures and he'll be weaned off the vent today. made patient a DNR early this morning at 0100. arrived to the bedside and states she has talked with technical support analyst today and reports that she would like all tubes removed. Did have chest x-ray today which showed increasing pulmonary airspace edema. He has been maintained on amiodarone infusion, IV nafcillin every 4 hours, pressor support, and propofol. Labs today show white count 25.2, hemoglobin 10.6, BUN 103, creatinine 2.05, blood glucose in the 190s. He had T max of 100.4 over night, oxygen saturation 91%, heart rate in the 100s, respirations in the 30s, blood pressure 124/53. Medical team is agreeing with comfort measures at this point in clinical course. Unable to complete full review of systems as patient is intubated PHYSICAL EXAMINATION: Gen: This is a morbidly obese 55-year-old male. He continues on mechanical ventilator monitored in ICU HEENT: Head is atraumatic, normocephalic. Pupils equal, round. Sclerae is anicteric. NECK: Supple. No JVD. No lymphadenopathy. No thyromegaly. LUNGS: Diminished with a few scattered rhonchi. No intercostal retractions. HEART: Regular rate and rhythm. No murmur. ABDOMEN: Soft. Bowel sounds are present, hypoactive. No masses. No tenderness. EXTREMITIES: No pedal edema. No calf tenderness. SKIN: There is scabbed lesion to right forearm. 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 -Leukocytosis, secondary to above increasing up to 25.2 today. Left parietal cortical and subcortical infarcts or infective embolic source secondary to MSSA endocarditis involving the mitral valve, cardiothoracic has determined patient to not be a surgical candidate. Acute hypoxic respiratory failure requiring intubation and mechanical venti lation, Fi02 now at 80%. -SVT was likely secondary to sepsis also atrial tachycardia patient was tra nsitioned to oral amiodarone but overnight amiodarone gtt has been resumed as heart rate in the 100s. -Metabolic encephalopathy secondary to sepsis, DTs, DKA, acute kidney injury -Acute on chronic kidney disease stage III -Delirium tremens prior to intubation patient was started on CIWA protocol at that time which has now been discontinued -DKA and patient was diabetes mellitus type 1 usually maintained on insulin pump. Pump is currently turned off and patient was transitioned off the insulin drip and continues on Levemir 25 twice a day as well as NovoLog every 6 and scale. Blood sugars are stable in the 100s. -Anion gap metabolic acidosis secondary to acute kidney injury and DKA, status p ost sodium bicarb -Elevated troponins, acute coronary syndrome ruled out, cardiology is following patient closely -Thrombocytopenia most at this secondary to sepsis, following trends Hyponatremia initially which patient was hypernatremic, resolved sodium 140 today -Hypertension, patient is currently maintained on pressor support -History of COPD History dementia continues on Aricept daily Hyperlipidemia, continues on Lipitor daily Gastroesophageal reflux disease and GI prophylaxis, Protonix IV daily History of acute respiratory failure requiring intubation secondary to polysubstance abuse which included narcotics and alcohol History of liver cirrhosis secondary to alcohol abuse History of seizure disorder not currently on Keppra Generalized anxiety disorder and recurrent depression daily crack cocaine use -Chronic daily alcohol use -GI Prophylaxis -DVT Prophylaxis Full Code Prognosis for this patient is poor, he continues in intensive care unit maintained on mechanical ventiliation being followed by multiple consultations including, infectious disease, neurology, cardiology, ICU technical support analyst, nephrology, cardiothoracic. He has shown no signs of improvement over the last week, and mortality rate is felt to be high at this time. FiO2 has been increased to 80%, he is on IV propofol for sedation. Continues on IV lasix daily. He is IV antibiotics in the form of IV nafcillin, white count continues to increase. Neurology would like repeat CT angiography, however creatinine has not improved enough for patient to undergo testing. Creatinine has increased overnight, now with BUN 103, creatinine of 2.05. Patients who is the power of heavy mobile equipment operator has changed patient to DNR early this morning. She has decided on comfort care measures and would like all the tubes to be removed to allow the patient to pass comfortably. This was discussed at bedside. The impression and plan of care has been dictated by Didi Christiansen, Nurse Practitioner as directed. Dr. Griselda MD I have performed a history and physical examination and medical decision making of this patient, discussed the same with the dictator, and agree with the dictators assessment and plan as written, documented as a scribe. Based on total visit time, I have performed more than 50% of this visit. Objective - Vital Signs Vital signs: Vital Signs Temp 99.2 F 10/31/21 08:00 Pulse 102 H 10/31/21 12:00 Resp 34 H 10/31/21 12:00 BP 130/67 10/31/21 06:30 Pulse Ox 91 L 10/31/21 12:00 FiO2 80 10/31/21 12:00 Intake & Output 10/30/21 10/31/21 10/31/21 18:59 06:59 18:59 Intake Total 2356.982 1766.850 708.194 Output Total 2075 1065 500 Balance 281.982 701.850 208.194 Weight 118.3 kg 118.3 kg Intake: IV 500 340 180 .9 @ 20 200 240 80 Nafcillin 2 gm In 300 100 100 Dextrose 5% in Water 100 ml @ 50 mls/hr IVPB Q4HR [facility] Rx#:[id number] Intake, IV Titration 905.982 868.850 342.194 Amount Amiodarone 360 mg In 200 Dextrose 5% in Water 200 ml @ 1 MG/MIN 33.333 mls/ hr IV .Q6H [facility] Rx#: [id number] Nafcillin 2 gm In 100 Dextrose 5% in Water 100 ml @ 50 mls/hr IVPB Q4HR [facility] Rx#:[id number] Norepinephrine 32 mg In 32.625 174.158 Sodium Chloride 0.9% 218 ml @ 0.05 MCG/KG/MIN 2. 773 mls/hr IV .Q24H [facility] Rx#:[id number] Norepinephrine 4 mg In 508.000 305.406 Sodium Chloride 0.9% 250 ml @ 0.05 MCG/KG/MIN 20. 306 mls/hr IV .[id number] [facility] Rx#:[id number] propofoL 1,000 mg In 397.982 230.819 168.036 Empty Bag 1 bag @ 5 MCG/ KG/MIN 3.489 mls/hr IV . Q24H [facility] Rx#:[id number] Tube Feeding 351 468 156 Other 600 90 30 Output: Urine 2075 1065 500 Other: Voiding Method Indwelling Catheter Indwelling Catheter Indwelling Catheter ABP, PAP, CO, CI - Last Documented Arterial Blood Pressure 124/53 - Labs CBC & Chem 7: 10/31/21 04:15 10/31/21 04:15 Labs: Abnormal Lab Results - Last 24 Hours (Table) 10/30/21 10/30/21 10/31/21 Range/Units 17:32 21:19 00:24 WBC (3.8-10.6) k/uL RBC (4.30-5.90) m/uL Hgb (13.0-17.5) gm/dL Hct (39.0-53.0) % MCV (80.0-100.0) fL MCHC (31.0-37.0) g/dL Neutrophils # (1.3-7.7) k/uL ABG pH (7.35-7.45) ABG pCO2 (35-45) mmHg ABG pO2 (83-108) mmHg ABG Total CO2 (19-24) mmol/L ABG O2 Saturation (94-97) % BUN (9-20) mg/dL Creatinine (0.66-1.25) mg/dL Glucose (74-99) mg/dL POC Glucose (mg/dL) 169 H 176 H 229 H (75-99) mg/dL Calcium (8.4-10.2) mg/dL Alkaline Phosphatase (38-126) U/L Albumin (3.5-5.0) g/dL 10/31/21 10/31/21 10/31/21 Range/Units 00:27 04:15 04:15 WBC 25.2 H (3.8-10.6) k/uL RBC 3.31 L (4.30-5.90) m/uL Hgb 10.6 L (13.0-17.5) gm/dL Hct 34.4 L (39.0-53.0) % MCV 103.7 H (80.0-100.0) fL MCHC 30.8 L (31.0-37.0) g/dL Neutrophils # 22.8 H (1.3-7.7) k/uL ABG pH (7.35-7.45) ABG pCO2 46 H (35-45) mmHg ABG pO2 56 L* (83-108) mmHg ABG Total CO2 27 H (19-24) mmol/L ABG O2 Saturation 88.0 L (94-97) % BUN 103 H* (9-20) mg/dL Creatinine 2.05 H (0.66-1.25) mg/dL Glucose 194 H (74-99) mg/dL POC Glucose (mg/dL) (75-99) mg/dL Calcium 7.7 L (8.4-10.2) mg/dL Alkaline Phosphatase 147 H (38-126) U/L Albumin 2.3 L (3.5-5.0) g/dL 10/31/21 10/31/21 Range/Units 04:16 05:40 WBC (3.8-10.6) k/uL RBC (4.30-5.90) m/uL Hgb (13.0-17.5) gm/dL Hct (39.0-53.0) % MCV (80.0-100.0) fL MCHC (31.0-37.0) g/dL Neutrophils # (1.3-7.7) k/uL ABG pH 7.32 L (7.35-7.45) ABG pCO2 49 H (35-45) mmHg ABG pO2 67 L (83-108) mmHg ABG Total CO2 27 H (19-24) mmol/L ABG O2 Saturation 92.0 L (94-97) % BUN (9-20) mg/dL Creatinine (0.66-1.25) mg/dL Glucose (74-99) mg/dL POC Glucose (mg/dL) 198 H (75-99) mg/dL Calcium (8.4-10.2) mg/dL Alkaline Phosphatase (38-126) U/L Albumin (3.5-5.0) g/dL Microbiology - Last 24 Hours (Table) 10/30/21 15:28 Blood Culture Gram Stain - Preliminary Blood 10/30/21 15:28 Blood Culture - Final Blood 10/25/21 01:49 Blood Culture - Final Blood No Growth after 144 hours 10/26/21 14:53 Blood Culture Gram Stain - Preliminary Blood Blood Culture - Preliminary Staphylococcus aureus 10/26/21 14:44 Blood Culture Gram Stain - Final Blood Blood Culture - Final Staphylococcus aureus 10/26/21 02:45 Gram Stain - Final Throat Tissue Culture - Final Staphylococcus aureus 10/27/21 14:00 Blood Culture Gram Stain - Preliminary Blood Blood Culture - Preliminary Presumptive Staph aureus Assessment and Plan Time with Patient: Less than 30
[2021-10-31] MEDS ORDERED: ONDANSETRON 4 MG/2 ML VIAL IVP PRN (13:14)
[2021-10-31] MEDS ORDERED: ATROPINE OPHTH SOLN 1% 5ML BTL SUBLINGUAL PRN (13:14)
[2021-10-31] MEDS ORDERED: MORPHINE SULFATE 4 MG/ML SYRINGE IV PRN (13:14)
[2021-10-31] MEDS ORDERED: LORazepam 2 MG/ML INJ IV PRN (13:14)
[2021-10-31] MEDS ORDERED: MORPHINE SULFATE 2 MG/ML SYRINGE IV PRN (13:14)
[2021-10-31] MEDS ORDERED: MORPHINE SULFATE (100 MG/2 ML) 100 MG in SODIUM CHLORIDE 0.9% 100 ML IV SCH (13:15)
[2021-10-31] MEDS ORDERED: SCOPOLAMINE 1 MG/72 HR PATCH TRANSDERM SCH (13:15)
[2021-10-31 15:26] VITALS: PULSE 98
--- NOTE | 2021-11-01 22:45 | P.DS ---
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 Left parietal cortical and subcortical infarcts or infective embolic source secondary to MSSA endocarditis involving the mitral valve, cardiothoracic has determined patient to not be a surgical candidate. Acute hypoxic respiratory failure requiring intubation and mechanical ventilation, Fi02 now at 80%. -SVT was likely secondary to sepsis also atrial tachycardia patient was transitioned to oral amiodarone but overnight amiodarone gtt has been resumed as heart rate in the 100s. -Metabolic encephalopathy secondary to sepsis, DTs, DKA, acute kidney injury -Acute on chronic kidney disease stage III -Delirium tremens prior to intubation patient was started on CIWA protocol at that time which has now been discontinued -DKA and patient was diabetes mellitus type 1 usually maintained on insulin pump. Pump is currently turned off and patient was transitioned off the insulin drip and continues on Levemir 25 twice a day as well as NovoLog every 6 and scale. Blood sugars are stable in the 100s. -Anion gap metabolic acidosis secondary to acute kidney injury and DKA, status post sodium bicarb -Elevated troponins, acute coronary syndrome ruled out, cardiology is following patient closely -Thrombocytopenia most at this secondary to sepsis, following trends Hyponatremia initially which patient was hypernatremic, resolved sodium 140 today -Hypertension, patient is currently maintained on pressor support -History of COPD History dementia continues on Aricept daily Hyperlipidemia, continues on Lipitor daily Gastroesophageal reflux disease and GI prophylaxis, Protonix IV daily History of acute respiratory failure requiring intubation secondary to polysubstance abuse which included narcotics and alcohol History of liver cirrhosis secondary to alcohol abuse History of seizure disorder not currently on Keppra Generalized anxiety disorder and recurrent depression daily crack cocaine use -Chronic daily alcohol use Do Not Resuscitate Discharge Disposition Patient was extubated at request of as part of comfort care orders on 0 10/31/2021 at 1345. Patient on 10/31/2021 at 1710 with at the bedside. Hospital Course This is a 55 year old male, patient of Dr. Fischer with medical history significant for COPD, Type 1 Diabetes on an insulin pump, Hypertension, generalized anxiety disorder, tobacco use and dependence, Seizure disorder and substance abuse. He presents with complaint of not feeling well over the past 3 days and his insulin pump is not in place. Patient is a poor historian on admission. He has been brought to the hospital for evaluation for generalized weakness, and had suffered a fall and was unable to get up off the floor. He is febrile at 101.6, heart rate of 134, blood pressure 120/98, respirations 36 and 99% on 2L nasal cannula. WBC 9.8, hemoglobin 11.7, platelet count 140. Sodium 124, potassium 3.7, chloride 92, CO2 19, BUN 71 and creatinine 2.59. Blood sugar 331 and subsequent blood glucose 484 and 547. Lactic acid 1.8. Calcium 8.3. Magnesium 1.6. Troponin is 0.129. Albumin 3.4. AST 282, ALT 77, alkaline phosphatase 85. Influenza a not detected, influenza B not detected, RSV not detected, SARS Covid to not detected. Chest x-ray revealed no acute cardiopulmonary process. CAT scan of the brain revealed no acute process. Encephalomalacia of the right temporal lobe similar to 2018. Patient was been admitted to the hospital for acute kidney injury to the intensive care unit with consults placed to physical therapy nurse, neurology for metabolic encephalopathy, infectious disease, cardiology, nephrology for acute kidney injury. He was started on IV zosyn empirically and CIWA protocol, he was also started on bicarbonate drip with 1 amp 100 mL per hour. Additional diagnostics on admission include Troponin level elevated at 0.129, 0.140 and 0.162 He was also found to be acetone positive and was started on an insulin infusion. Negative hepatitis panel Influenza A, Influenza B, RSV, Covid are not detected Urine culture on 10/21/21 positive for staph aureus. Patients blood culture which has been completed daily since 10/21/21 has show positive for staph aureus. Sputum culture from 10/26/21 is also positive for staph aureus. Echocardiogram completed showing an EF of 55 to 60%, moderate LVH, mild aortic stenosis, mild tricuspid regurg, mild mitral regurg. Abdomen bladder ultrasound as part of work up for acute kidney injury which reveals no hydronephrosis. Patient had a follow up chest xray completed on 10/23/21 which is consistent with mild to moderate CHF. His creatinine on the 5th had maxed out at 3.56. Procalcitonin level was checked at 55.50. Patient had developed delirium tremens while in the intensive care unit with an increase in altered mental status. On 10/25/21 patient was intubated at 0123. He underwent repeat brain CT on 10/25/21 which shows interval development of left front and left parietal cortical and subcortical infarcts which could be watershed infarct versus underlying embolic etiology. Patient underwent full neurological work up including carotid doppler showing mild hemogeneous plaque with no significant hemodynamic stenosis. EEG was completed showing moderate encephalopathy with no focal slowing, epileptiform discharge or seizure activity. He had a transesophageal echocardiogram completed on 10/26/21 which reveals large vegetation involving the posterior mitral leaflet with a smaller vegetation involving the anterior mitral leaflet with mild mitral regurgitation. Left ventricular systolic function is normal. There is small atrial septal defect noted with bidirectional flow. It was discussed that likely CT findings from 10/25/21 reflect spetic emboli from infective endocarditis. Patient continued to be monitored in the intensive care unit on mechanical ventilation. He underwent repeat brain CT on 10/29/2021 which reveals old cortical infarcts no acute change. MRI was recommended however patients creatinine has not stabilized for additional imaging. Neurology has discussed that it is difficult to complete full neurological examination and work up as patient has remained intubated in the intensive care unit. He has not tolerated weaning as he becomes agitated and has been maintained on IV propofol. He has also require vasopressor support on and off. During weaning attempts patient also experience a tachyarrythmia with SVT and atrial tachycardia and was started on amiodarone infusion, he was transitioned to oral amidarone and then was placed back on amiodarone infusion for elevated heart rate. Blood cultures have shown persistent bacteremia with staphylococcus aureus. [facility] patient was deemed not a surgical candidate for mitral valve replacement. He has been maintained on IV nafcillin every 4 hours without improvement, his white count has continued to climb and patient has been febrile. He has required increasing oxygen support on the mechanical ventilator and patients who is the medical POA has decided on comfort care measures and requested that all lines be removed. Patient was extubated at request of as part of comfort care orders on 10/31/2021 at 1345. He on 10/31/2021 at 1345. Thank you for allowing us to participate in the care of this patient. The impression and plan of care has been dictated by Didi Christiansen, Nurse Practitioner as directed. Dr. Griselda MD I have performed a history and physical examination and medical decision making of this patient, discussed the same with the dictator, and agree with the dictators assessment and plan as written, documented as a scribe. Based on total visit time, I have performed more than 50% of this visit. Plan - Discharge Summary Discharge Rx Participant: No New Discharge Prescriptions: No Action Omeprazole [PriLOSEC] 20 mg PO DAILY lisinopriL [Zestril] 20 mg PO DAILY INSULIN LISPRO (For Pump) [humaLOG (For Pump)] 0.01 units SQ-PUMP CONTINUOUS Glucagon [Baqsimi] 1 spray NASAL DAILY PRN PRN Reason: Low BS Donepezil [Aricept] 10 mg PO DAILY Atorvastatin [Lipitor] 40 mg PO DAILY Albuterol Sulfate [Proair Hfa] 2 puff INHALATION RT-Q4H PRN PRN Reason: Shortness Of Breath Discharge Medication List Omeprazole [PriLOSEC] 20 mg PO DAILY 01/17/14 [History] lisinopriL [Zestril] 20 mg PO DAILY 08/04/17 [History] Albuterol Sulfate [Proair Hfa] 2 puff INHALATION RT-Q4H PRN 10/20/21 [History] Atorvastatin [Lipitor] 40 mg PO DAILY 10/20/21 [History] Donepezil [Aricept] 10 mg PO DAILY 10/20/21 [History] Glucagon [Baqsimi] 1 spray NASAL DAILY PRN 10/20/21 [History] INSULIN LISPRO (For Pump) [humaLOG (For Pump)] 0.01 units SQ-PUMP CONTINUOUS 10/20/21 [History] Follow up Appointment(s)/Referral(s): Boris Fischer MD [Primary Care Provider] - 1-2 days Discharge/Stand Alone Forms: AA Meetings [place], Outpatient Counseling, Inp Substance Abuse Facilities Discharge Disposition: - Preliminary Cause of Preliminary Cause of : Infective endocarditis with sepsis
== END 2021-10-31 19:48 | disposition expired | DRG 870 ==
LOC: EC 17:13 → 3SCARD 20:46 → 2SICU 10-21 09:42
PROVIDERS: ADMIT Internal Medicine Geriatric Medicine; ATTEND Internal Medicine Geriatric Medicine
PROC: 5A0945A Assistance with Respiratory Ventilation, 24-96 Consecutive Hours, High Flow/Velocity Cannula (ICD-10-PCS; 2021-10-20)
PROC: 3E033XZ Introduction of Vasopressor into Peripheral Vein, Percutaneous Approach (ICD-10-PCS; 2021-10-22)
PROC: 03HY32Z Insertion of Monitoring Device into Upper Artery, Percutaneous Approach (ICD-10-PCS; 2021-10-24)
PROC: 4A133J1 Monitoring of Arterial Pulse, Peripheral, Percutaneous Approach (ICD-10-PCS; 2021-10-24)
PROC: 02HV33Z Insertion of Infusion Device into Superior Vena Cava, Percutaneous Approach (ICD-10-PCS; 2021-10-24)
PROC: 4A133B1 Monitoring of Arterial Pressure, Peripheral, Percutaneous Approach (ICD-10-PCS; 2021-10-24)
PROC: 5A1955Z Respiratory Ventilation, Greater than 96 Consecutive Hours (ICD-10-PCS; principal; 2021-10-25)
PROC: 0BH17EZ Insertion of Endotracheal Airway into Trachea, Via Natural or Artificial Opening (ICD-10-PCS; principal; 2021-10-25)
PROC: 3E0G76Z Introduction of Nutritional Substance into Upper GI, Via Natural or Artificial Opening (ICD-10-PCS; 2021-10-25)
PROC: 0DH67UZ Insertion of Feeding Device into Stomach, Via Natural or Artificial Opening (ICD-10-PCS; 2021-10-25)
PROC: B24BZZ4 Ultrasonography of Heart with Aorta, Transesophageal (ICD-10-PCS; 2021-10-26)
DX: A41.01 Sepsis due to Methicillin susceptible Staphylococcus aureus (principal); E10.10 Type 1 diabetes mellitus with ketoacidosis without coma; G92.8 Other toxic encephalopathy; I33.0 Acute and subacute infective endocarditis; I63.40 Cerebral infarction due to embolism of unspecified cerebral artery; J96.01 Acute respiratory failure with hypoxia; N17.0 Acute kidney failure with tubular necrosis; R65.21 Severe sepsis with septic shock; E87.0 Hyperosmolality and hypernatremia; E87.1 Hypo-osmolality and hyponatremia; F10.231 Alcohol dependence with withdrawal delirium; F33.9 Major depressive disorder, recurrent, unspecified; I13.0 Hypertensive heart and chronic kidney disease with heart failure and stage 1 through stage 4 chronic kidney disease, or unspecified chronic kidney disease; I47.1 Supraventricular tachycardia; I47.2 Ventricular tachycardia; I50.30 Unspecified diastolic (congestive) heart failure; I76 Septic arterial embolism; J98.11 Atelectasis; N39.0 Urinary tract infection, site not specified; Q21.1 Atrial septal defect; F19.139 Other psychoactive substance abuse with withdrawal, unspecified; Z51.5 Encounter for palliative care; Z66 Do not resuscitate; Z20.822 Contact with and (suspected) exposure to COVID-19; J44.9 Chronic obstructive pulmonary disease, unspecified; D69.59 Other secondary thrombocytopenia; E10.22 Type 1 diabetes mellitus with diabetic chronic kidney disease; F03.90 Unspecified dementia, unspecified severity, without behavioral disturbance, psychotic disturbance, mood disturbance, and anxiety; G93.89 Other specified disorders of brain; F14.10 Cocaine abuse, uncomplicated; E10.42 Type 1 diabetes mellitus with diabetic polyneuropathy; K70.30 Alcoholic cirrhosis of liver without ascites; I65.29 Occlusion and stenosis of unspecified carotid artery; N18.31 Chronic kidney disease, stage 3a; G40.909 Epilepsy, unspecified, not intractable, without status epilepticus; E88.09 Other disorders of plasma-protein metabolism, not elsewhere classified; I34.0 Nonrheumatic mitral (valve) insufficiency; E83.51 Hypocalcemia; D75.89 Other specified diseases of blood and blood-forming organs; B96.89 Other specified bacterial agents as the cause of diseases classified elsewhere; E78.5 Hyperlipidemia, unspecified; E86.0 Dehydration; E86.1 Hypovolemia; E87.6 Hypokalemia; F17.210 Nicotine dependence, cigarettes, uncomplicated; F41.1 Generalized anxiety disorder; M54.50 Low back pain, unspecified; G89.29 Other chronic pain; I48.91 Unspecified atrial fibrillation; R32 Unspecified urinary incontinence; R15.9 Full incontinence of feces; Z91.81 History of falling; R45.1 Restlessness and agitation; W22.09XA Striking against other stationary object, initial encounter; Z28.310 Unvaccinated for COVID-19; Z28.21 Immunization not carried out because of patient refusal; Z79.4 Long term (current) use of insulin; Z79.899 Other long term (current) drug therapy; Z83.3 Family history of diabetes mellitus; Z96.41 Presence of insulin pump (external) (internal); Z83.79 Family history of other diseases of the digestive system
CPT/HCPCS: 36415; 36600; 70450; 71045; 76705; 76770; 80048; 80053; 80061; 80320; 81001; 82009; 82330; 82607; 82746; 82805; 83036; 83605; 83735; 84100; 84132; 84145; 84443; 84484; 85025; 85027; 85610; 85730; 86140; 86704; 86706; 87040; 87070; 87077; 87086; 87186; 87205; 87340; 87636; 93005; 93306; 93312; 93320; 93325; 93880; 94002; 94003; 94640; 95822; 96361; 96365; 96366; 96374; 99291